=== PATIENT | female | born 1970 | race Caucasian/White ===

== ENCOUNTER 2024-08-11 07:39 | Outpatient (CLI) | payer BC, SELFPAY ==
[2024-08-11 09:28] LABS: Free T4 Free Thyroxine 1.01 ng/dL (0.78-2.19)
[2024-08-12 08:08] LABS: FSH 17.5 mIU/mL; LH 16.5 mIU/mL
[2024-08-15 14:14] LABS: Anti Mullerian Hormone,Female 0.04 ng/mL
[2024-08-17 01:34] LABS: Estradiol, Ultrasensitive 116 pg/mL
--- OUTSIDE RECORDS SUMMARY | 2024-08-18 09:52 | XMS_ITS | Referral Summary ---
Author Organization [facility] Address [address] [place] [address] Care Team Providers Care Multifocal Lens Assembler Name Role Phone Crispin Shen MD Unavailable [phone] Kemi Schmitz Unavailable Ton Hernandez NP Primary Care Provider [phone] Maria C Zacarias MD Unavailable [phone] Allergies No known active allergies Medications turmeric root extract 500 mg capsule Take 500 mg by mouth nightly Active lysine 1,000 mg tablet Take 1,000 mg by mouth nightly Active valACYclovir (VALTREX) 500 mg tablet Take 1 tablet (500 mg total) by mouth 3 (three) times a day 3 Active psyllium, aspartame, SF (METAMUCIL SF) 3.4 gram packet Take 1 packet by mouth drum filler before breakfast Active acetaminophen 500 mg capsuleIndicati ons:Pain Take 2 capsules (1,000 mg total) by mouth every 6 (six) hours 60 tablet 4 Active oxyCODONE (ROXICODONE) 5 mg immediate release tabletIndicatio ns:Pain Take 1 tablet (5 mg total) by mouth every 4 (four) hours as needed for pain 15 tablet 4 Active cyclobenzaprine (FLEXERIL) 5 mg tabletIndicatio ns:Muscle Spasm Take 1 tablet (5 mg total) by mouth 3 (three) times a day as needed for muscle spasms 15 tablet 4 Active Active Problems Problem Noted Date Diagnosed Date Incarcerated ventral hernia 09/20/2023 Assessment & Plan (09/20/2023 1:59 PM DINKER): SEE ABDOMINAL WALL HERNIA for assessment and plan Acute post-operative pain 09/20/2023 Assessment & Plan (09/20/2023 1:58 PM DINKER): -Ordered for tylenol and flexeril scheduled, PRN oxycodone Discharge planning issues 09/20/2023 Assessment & Plan (09/20/2023 1:58 PM DINKER): 2/ OR with Bochicchio; admission overnight for pain control Abdominal wall hernia 08/07/2023 Assessment & Plan (09/21/2023 9:08 AM DINKER): -H/o rectovaginal fistula s/p colostomy and subsequent takedown (Shen 05/18/22) c/b ventral hernia -OR 2/ (Bochicchio) abdominal wall hernia repair with mesh -Regular diet, d/c IVF when tolerating PO -Abdominal binder -Incisions closed with dermabond 2 patient feeling well, pain controlled and passing flatus Follow up will be with Doe Robles with a phone call in 3 weeks from discharge Anal sphincter incontinence 02/22/2023 Encounter for screening colonoscopy 02/22/2023 Anxiety 11/20/2022 Vaginal fistula 03/16/2022 Overview (03/16/2022): Added automatically from request for surgery [id number] Col[facility] in place ([facility]) 03/16/2022 Overview (03/16/2022): Added automatically from request for surgery [id number] Anal fistula 02/08/2021 Overview (02/08/2021): Added automatically from request for surgery [id number] Rectovaginal fistula 08/31/2020 Overview (08/31/2020): Added automatically from request for surgery [id number] Immunizations Name Administration Dates Next Due Pfizer SARS-CoV-2 Monovalent Vaccination (12+ Yrs) PURPLE 11/08/2020,10/18/2020 Social History Tobacco Use Types Packs/Day Years Used Date Smoking Tobacco: Never Smokeless Tobacco: Never Tobacco Cessation:Counseling Given: Not Answered Alcohol Use Standard Drinks/Week Comments Not Currently 0 (1 standard drink = 0.6 oz pur e alcohol) Humiliation, Afraid, Rape, and Kick questionnair e Answer Date Recorded Within the last year, have y ou been afraid of your partner or ex-partner? No 11/24/2020 Within the last year, have y ou been humiliated or emotionally abused in other ways by your partner or ex-partner? No Within the last year, have y ou been kicked, hit, slapped, or otherwise physically hurt by your partner or ex-partner? No 11/24/2020 Within the last year, have y ou been raped or forced to have any kind of sexual activity by your partner or ex-partner? No 11/24/2020 Social Connection and Isolation Panel [NHANES] A nswer Date Recorded In a typical week, how many times do you talk on the phone with family, friends, or neighbors? Three times a week 11/25/19 How often do you get togethe r with friends or relatives? Twice a week 11/24/2020 How often do you attend [facility] or jain services? 1 to 4 times per year 11/24/2020 Do you belong to any clubs o r organizations such as bahai groups, unions, fraternal or athletic groups, or school groups? No 11/24/2020 How often do you attend meet ings of the clubs or organizations you belong to? Never 11/24/2020 Are you , , di vorced, , never , or living with a partner? Living with partner 11/24/2020 AUDIT-C Answer Date Recorded Q1: How often do you have a drink containing alcohol? Never 09/20/2023 Q2: How many drinks containi ng alcohol do you have on a typical day when you are drinking? Patient does not drink Q3: How often do you have si x or more drinks on one occasion? Never 09/20/2023 Hunger Vital Sign Answer Date Recorded Within the past 12 months, y ou worried that your food would run out before you got the money to buy more. Never true 11/25/19 21 Within the past 12 months, t he food you bought just didn't last and you didn't have money to get more. Never true 11/24/2020 PRAPARE - Transportation Answer Date Re corded In the past 12 months, has l ack of transportation kept you from medical appointments or from getting medications? No 02/2021 In the past 12 months, has l ack of transportation kept you from meetings, work, or from getting things needed for daily living? No 11/24/2020 Personal Safety Answer Date Recorded Have you ever been in or are you currently in a harmful physical or emotional relationship or is someone making you feel afraid or unsafe? Denies 09/20/2023 Comments No Sex and Gender Information Value Date Recorded Sex Assigned at Not on file Legal Sex Female 9:36 AM DINKER Gender Identity Female 11/16/2020 2:58 PM CDT Sexual Orientation Straight 11/16/2020 2: 58 PM CDT Last Filed Vital Signs Vital Sign Reading Time Taken Comments Blood Pressure 114/62 09/21/2023 4:26 AM DINKER Pulse 91 09/21/2023 4:26 AM DINKER Temperature 36.4 ??C (97.6 ??F) 09/21/2023 4:26 AM CS T Respiratory Rate 14 09/21/2023 4:26 AM DINKER Oxygen Saturation 99% 09/21/2023 4:26 AM DINKER Inhaled Oxygen Concentration - - Weight 90 kg (198 lb 6.6 oz) 09/11/2023 4:56 PM DINKER Height 177.8 cm (5' 10 ) 09/11/2023 4:56 PM DINKER Body Mass Index 28.47 09/11/2023 4:56 PM DINKER Plan of Treatment Not on file Medical Devices Implanted Type Area Wiring Inspector Device Identifier Shelf Expiration Date Model / Serial / Lot dMetrics Inc [id number] Biodesign Surgisis 9.5x.6cm Set Fistula Plug Without Button Spivey - [id number] Implanted:Qty: 1 on 03/04/2021 by Crispin Shen MD at [facility] N/A: Rectum [employer] 05/30/2022 [id number] / / [id number] Davol Inc/C R Bard Ventralex St Sepra Sorbaflex 2.5in [place] Open Bioresorbable [id number] - [id number] Implanted:Qty: 1 on 09/20/2023 by Bib Ward MD at [facility] Left: Abdomen [employer] Inc/C R Bard [id number] 06/16/2024 [id number] / / [id number] Procedures Procedure Name Priority Date/Time Associated Diagnosis Comments COLONOSCOPY 05/14/2023 8:29 AM CDT from Last 3 Months or Most Recently Relevant to Health Maintenance Results * COLONOSCOPY (05/14/2023 8:29 AM CDT) Anatomical Region Laterality Modality Other Narrative Procedure Note Crispin Shen MD - 05/14/2023 8:29 AM CDT [facility] Patient Name: Belem Coto Procedure Date: 05/14/2023 8:29 AM Date of : 1970 Admit Type: Outpatient Age: 52 Gender: Female Attending MD: Crispin Shen M.D. Room: [facility] ENDOSCOPY ROOM 02 Note Status: Finalized Procedure: Colonoscopy Indications: Screening for colorectal malignant neoplasm Referring MD: Providers: Crispin Shen M.D. Medicines: Propofol per Anesthesia Complications: No immediate complications. Estimated Blood Loss: Estimated blood loss: none. Procedure: Pre-Anesthesia Assessment: - After reviewing the risks and benefits, thepatient was deemed in satisfactory condition to undergo the procedure. - Immediately prior to administration ofmedications, the patient was re-assessed for adequacy to receive sedatives. The benefits, risks and alternatives of theprocedure and sedation were discussed and informed consentwas obtained. All questions were answered. Please referto the signed informed consent document in the medical record. The scope was passed under direct vision.The [id number] Colonoscope was introducedthrough the anus and advanced to the the cecum, identifiedby appendiceal orifice and ileocecal valve. The colonoscopy was performed without difficulty. The patient tolerated the procedure well. The qualityof the bowel preparation was good. The bowelpreparation used was SUPREP. Findings: The perianal and digital rectal examinations were normal. The colon (entire examined portion) appeared normal. Biopsies for histology were taken with a cold forceps from the right colon andleft colon for evaluation of microscopic colitis. Impression: - The entire examined colon is normal. Biopsied. Recommendation: - Await pathology results. - Repeat colonoscopy in 10 years for screening purposes. Electronically signed by Kervin Shen Crispin Shen M.D. 05/14/2023 8:59:38 AM Number of Addenda: 0 Note Initiated On: 05/14/2023 8:29 AM Recognized by the [place] [employer] for promoting quality in endoscopy us Crispin Shen MD ENDOSCOPY PROCEDURES Final Res ult from Last 3 Months or Most Recently Relevant to Health Maintenance Insurance [employer] [place] Advance Directives For more information, please contact: [phone] * Full Code (Latest Code Status on File) Date Activated Date Inactivated Comments 09/20/2023 3:58 PM 09/21/2023 1:09 PM * Full Code Date Activated Date Inactivated Comments 05/14/2023 7:08 AM 05/14/2023 2:49 PM * Full Code Date Activated Date Inactivated Comments 05/18/2022 10:50 AM 05/20/2022 6:45 PM * Full Code Date Activated Date Inactivated Comments 11/24/2020 2:59 PM 11/26/2020 8:36 PM Care Teams Multifocal Lens Assembler Relationship Specialty Start Date End Date Ton Hernandez NP [address] [place] [address] PCP - General Nurse Practitioner 03/08/23 Crispin Shen MD Surgeon Colon and Rectal Surgery 09/09/20 Kemi Schmitz [address] [place] [address] Surgeon Colon and Rectal Surgery 05/16/21 Maria C Zacarias MD [address] [place] [address] Retail Loss Prevention Specialist Gastroenterology 04/02/23
--- OUTSIDE RECORDS SUMMARY | 2024-08-18 09:52 | XMS_ITS | Clinical Summary ---
Author Organization [facility] Address [address] [place] [address] Care Team Providers Care Food Safety Field Specialist Name Role Phone Crispin Shen MD Unavailable [phone] Kemi Schmitz Unavailable Ton Hernandez NP Primary Care Provider [phone] Maria C Zacarias MD Unavailable [phone] Allergies No known active allergies Medications [...] gram packet Take 1 packet by mouth admission nurse coordinator before breakfast Active acetaminophen 500 mg capsuleIndicati [...] 09/20/2023 Assessment & Plan (09/20/2023 1:59 PM NUTRITION TECH): SEE ABDOMINAL WALL HERNIA for assessment and plan Acute post-operative pain 09/20/2023 Assessment & Plan (09/20/2023 1:58 PM NUTRITION TECH): -Ordered for tylenol and flexeril scheduled, PRN oxycodone Discharge planning issues 09/20/2023 Assessment & Plan (09/20/2023 1:58 PM NUTRITION TECH): 2/ OR with Bochicchio; admission overnight for pain control Abdominal wall hernia 08/07/2023 Assessment & Plan (09/21/2023 9:08 AM NUTRITION TECH): -H/o rectovaginal fistula s/p colostomy and subsequent [...] (03/16/2022): Added automatically from request for surgery [id number] Colostomy in place ([facility]) 03/16/2022 Overview (03/16/2022): Added automatically from request for surgery [id number] Anal fistula 02/08/2021 Overview (02/08/2021): Added automatically from request for surgery [id number] Rectovaginal fistula 08/31/2020 Overview (08/31/2020): Added automatically from request for surgery [id number] Immunizations Name Administration Dates Next Due Pfizer SARS-CoV-2 Monovalent Vaccination (12+ Yrs) PURPLE 11/08/2020,10/18/2020 Surgical History Surgery Date Site/Laterality Comments RECTAL EXAMINATION UNDER ANESTHESIA 12/29/2019 RECTAL SURGERY 01/05/2020 Endorectal Advancement Flap RECTAL SURGERY 04/14/2020 Bulbocavernosus Flap Closure of Rectovaginal Fistula COLOSTOMY 04/18/2020 ABDOMINOPLASTY 08/20/2009 - 08/19/2010 APPENDECTOMY 08/20/1977 - 08/19/1978 ENDOMETRIAL ABLATION 08/20/2010 - 08/19/2011 REVISION COLOSTOMY 11/24/2020 Gracillis flap repair of anal vaginal fistula and colostomy revision COLONOSCOPY 08/20/2007 - 08/19/2008 RECTAL EXAMINATION UNDER ANESTHESIA 01/21/2021 Exam under anesthesia, unroofing of abscess cavity, seton placement TREATMENT FISTULA ANAL 03/04/2021 Exam anesthesia, anal fistula plug treatment of fistula. EXAMINATION UNDER ANESTHESIA 08/20/2021 - 08/19/2022 REVISION / TAKEDOWN COLOSTOMY 04/20/2022 - 05/19/2022 colostomy takedown Medical History Medical History Date Comments Anxiety Depression Obesity Rectovaginal fistula Family History Medical History Relation Name Comments Thyroid cancer Mother Anesthesia problems Neg Hx Relation Name Status Comments Mother Social History Tobacco Use Types Packs/Day Years [...] week 11/24/2020 How often do you attend chur ch or spiritism services? 1 to 4 times per year 11/24/2020 Do you belong to any clubs o r organizations such as latter-day groups, unions, fraternal or athletic groups, or [...] on file Legal Sex Female 9:36 AM NUTRITION TECH Gender Identity Female 11/16/2020 2:58 PM CDT Sexual Orientation Straight 11/16/2020 2: 58 PM CDT Obstetrics History Last Filed Vital Signs Vital Sign Reading Time Taken Comments Blood Pressure 114/62 09/21/2023 4:26 AM NUTRITION TECH Pulse 91 09/21/2023 4:26 AM NUTRITION TECH Temperature 36.4 ??C (97.6 ??F) 09/21/2023 4:26 AM CS T Respiratory Rate 14 09/21/2023 4:26 AM NUTRITION TECH Oxygen Saturation 99% 09/21/2023 4:26 AM NUTRITION TECH Inhaled Oxygen Concentration - - Weight 90 kg (198 lb 6.6 oz) 09/11/2023 4:56 PM NUTRITION TECH Height 177.8 cm (5' 10 ) 09/11/2023 4:56 PM NUTRITION TECH Body Mass Index 28.47 09/11/2023 4:56 PM NUTRITION TECH Plan of Treatment Health Maintenance Due Date Last Done Comments Cervical Cancer Screening 1970 Depression Screening 1970 Hepatitis C Screening 1970 Hepatitis B Screening 1988 Regular Well Visit/Exam 18-64 1988 Zoster Vaccine (1 of 2) 2020 Covid-19 Vaccine ( season) 2024 12/01/2021, 06/02/2021, 11/08/2020, Additional history exists Influenza Vaccine (#1) 2024 , 05/16/2021, 05/16/2021, Additional history exists Breast Cancer Screening-Mammogram 05/22/2024 05/22/2023, 05/16/2022 DTaP/Tdap/Td Vaccine (2 - Td or Tdap) 07/22/2029 07/22/2019 Colon Cancer Screening-Colonoscopy 05/14/2033 05/14/2023 Pneumococcal vaccine <65 Aged Out No longer eligible based on patient's age to complete this topic Medical Devices Implanted Type Area Web Operations Administrator Device Identifier Shelf Expiration Date Model / Serial / Lot Interface Foundry Inc [id number] Biodesign Surgisis 9.5x.6cm Set Fistula Plug Without Button [place] - [id number] Implanted:Qty: 1 on 03/04/2021 by Crispin Shen MD at [facility] N/A: Rectum [employer] 05/30/2022 [id number] / / [id number] Davol Inc/C R Bard Ventralex St Sepra Sorbaflex 2.5in [place] Open Bioresorbable [id number] - [id number] Implanted:Qty: 1 on 09/20/2023 by Bib Ward MD at [facility] Left: Abdomen [employer]ol Inc/C R Bard [id number] 06/16/2024 [id number] / / [id number] Procedures Procedure Name Priority Date/Time Associated Diagnosis Comments COLONOSCOPY 05/14/2023 8:29 AM CDT from Last 3 Months or Most Recently Relevant to Health Maintenance Results * COLONOSCOPY (05/14/2023 8:29 AM CDT) Anatomical Region Laterality Modality Other Narrative Procedure Note Crispin Shen MD - 05/14/2023 8:29 AM CDT [facility] Patient Name: Belem Coto Procedure Date: 05/14/2023 8:29 AM Date of : 1970 Admit Type: Outpatient Age: 52 Gender: Female Attending MD: Crispin Shen M.D. Room: [facility] ENDOSCOPY ROOM 02 Note Status: Finalized [...] The scope was passed under direct vision.The [id number] Colonoscope was introducedthrough the anus and advanced [...] On: 05/14/2023 8:29 AM Recognized by the [place] [employer] for promoting quality in endoscopy Crispin Shen MD ENDOSCOPY PROCEDURES Final Res ult from Last 3 Months or Most Recently Relevant to Health Maintenance Insurance [employer] BL CHOICE PRF PPO [place] Advance Directives For more information, please contact: [phone] * Full Code (Latest Code Status on File) Date Activated Date Inactivated Comments 09/20/2023 3:58 PM 09/21/2023 1:09 PM * Full Code Date Activated Date Inactivated Comments 05/14/2023 7:08 AM 05/14/2023 2:49 PM * Full Code Date Activated Date Inactivated Comments 05/18/2022 10:50 AM 05/20/2022 6:45 PM * Full Code Date Activated Date Inactivated Comments 11/24/2020 2:59 PM 11/26/2020 8:36 PM Care Teams Food Safety Field Specialist Relationship Specialty Start Date End Date Ton Hernandez NP [address] [place] [phone] PCP - General Nurse Practitioner 03/08/23 Crispin Shen MD Surgeon Colon and Rectal Surgery 09/09/20 Kemi Schmitz [address] [place] [address] Surgeon Colon and Rectal Surgery 05/16/21 Maria C Zacarias MD [address] [place] [address] Dialer Gastroenterology 04/02/23
--- OUTSIDE RECORDS SUMMARY | 2024-08-18 09:52 | XMS_ITS | Encounter Summary ---
Author Organization [facility] Address [address] [place] [address] Phone Care Team Providers Care Carpenter'S Helper Name Role Phone Crispin Shen MD Unavailable [phone] Kemi Schmitz Unavailable Ton Hernandez NP Primary Care Provider [phone] Maria C Zacarias MD Unavailable [phone] Encounter Details Date Type Department Care Team (Late st Contact Info) Description 11/01/2023 Plan of Care Documentation [facility] Physical Therapy [address] [place] [address] Social History Tobacco Use Types Packs/Day Years Used Date Smoking Tobacco: Never Smokeless Tobacco: Never Alcohol Use Standard Drinks/Week Comments Not Currently [...] 11/24/2020 How often do you attend chur or yazdanism services? 1 to 4 times per year 11/24/2020 Do you belong to any clubs o r organizations such as druze groups, unions, fraternal or athletic groups, or [...] on file Legal Sex Female 9:36 AM FOXPRO DEVELOPER Gender Identity Female 11/16/2020 2:58 PM CDT Sexual Orientation Straight 11/16/2020 2: 58 PM CDT documented as of this encounter Plan of Treatment Not on file documented as of this encounter Visit Diagnoses Not on filedocumented in this encounter Care Teams Carpenter'S Helper Relationship Specialty Start Date End Date Ton Hernandez NP [address] [place] [phone] PCP - General Nurse Practitioner 03/08/23 Crispin Shen MD Surgeon Colon and Rectal Surgery 09/09/20 Kemi Schmitz [address] [place] [address] Surgeon Colon and Rectal Surgery 05/16/21 Maria C Zacarias MD [address] [place] [address] Money Manager Gastroenterology 04/02/23 documented as of this encounter
--- OUTSIDE RECORDS SUMMARY | 2024-08-18 09:52 | XMS_ITS | Encounter Summary ---
Author Organization [facility] Address [address] [place] [address] Phone Care Team Providers Care Electric Range Assembler Name Role Phone Crispin Shen MD Unavailable [phone] Kemi Schmitz Unavailable Ton Hernandez NP Primary Care Provider [phone] Maria C Zacarias MD Unavailable Encounter Details Date Type Department Care Team (Late st Contact Info) Description 10/17/[address] [facility] Department of Surgery [address] [facility] [address] [place] [address] [place] [address] Doe Robles Social History Tobacco Use Types Packs/Day Years [...] often do you attend chur ch or sikhism services? 1 to 4 times per year 11/24/2020 Do you belong to any clubs o r organizations such as rastafari groups, unions, fraternal or athletic groups, or [...] on file Legal Sex Female 9:36 AM ELECTRONIC HEALTH RECORDS SPECIALIST Gender Identity Female 11/16/2020 2:58 PM CDT Sexual Orientation Straight 11/16/2020 2: 58 PM CDT documented as of this encounter Miscellaneous Notes * Telephone Encounter - Doe Robles - 10/17/2023 10:13 AM CST I spoke with Ms. Coto today and completed her post-op follow up phone call. She has no concerns or complaints at this time. She denies pain, swelling, redness or drainage from her surgical site.We discussed the need to continue her lifting restrictions of no more than 10 pounds for a total of6 weeks. I asked her to give the office a call if anything changes or if she has any additional questions. She understands and is agreeable with this plan. TRONIC HEALTH RECORDS SPECIALIST documented in this encounter Plan of Treatment Not on file documented as of this encounter Visit Diagnoses Not on filedocumented in this encounter Care Teams Electric Range Assembler Relationship Specialty Start Date End Date Ton Hernandez NP [address] [place] [phone] PCP - General Nurse Practitioner 03/08/23 Crispin Shen MD Surgeon Colon and Rectal Surgery 09/09/20 Kemi Schmitz [address] [place] [address] Surgeon Colon and Rectal Surgery 05/16/21 Maria C Zacarias MD [address] [place] [address] Test Engineering Technician Gastroenterology 04/02/23 documented as of this encounter
--- OUTSIDE RECORDS SUMMARY | 2024-08-18 09:52 | XMS_ITS | Encounter Summary ---
Author Organization [facility] Address [address] [place] [address] Phone Care Team Providers Care Sales Representative Electric Service Name Role Phone Crispin Shen MD Unavailable [phone] Kemi Schmitz Unavailable Ton Hernandez NP Primary Care Provider [phone] Maria C Zacarias MD Unavailable [phone] Reason for Visit * Reason Comments PT Initial Eval * Consultation (Routine) - Authorized Specialty Diagnoses / Procedures Referred By Contblas t Referred To Contact Physical Therapy Diagnoses Dyssynergic defecation Vivian Thornton MD [address] [place] [address] Phone: tel: fax: Saskia Pemberton DPT [address] [place] [address] Phone: tel: fax: Referral ID Status Reason Start Date Expiration Date Visits Requested Visits Authorized [id number] Authorized Evaluate and Treat 07/24/2023 08/22/2024 24 24 Encounter Details Date Type Department Care Team (Late st Contact Info) Description 10/30/2023 4:00 PM CDT Therapy [facility] Physical Therapy [address] [place] [address] Mary Collier, DPT [address] [facility] [address] [place] [address] Dyssynergic defecation (Primary Dx) Social History Tobacco Use Types Packs/Day Years [...] week 11/24/2020 How often do you attend up health system or quaker services? 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 Dyssynergic defecation 564.02 K59.02 Ambulatory referral order to Physical Therapy - Referring Practitioner: Vivian Thornton MD Date of service: 10/30/2023 Progress note due: 01/29/2024 SUBJECTIVE There were no vitals filed for this visit. Patient CC: Pt reports extensive history of pelvic floor and rectal surgery that have caused her current issuesof UI and FI. She notes feelings of defecating during intercourse and mixed UI that she has been experiencing for multiple years. She notes hernia following removal of ostomy bag. She is currently using the Eclipse for rectal support which has helped with complete stool emptying and decreasing the amount of FI. Her FI is primarily worse when her stool is runny. Previous treatment -No pelvic PT Pertinant Medical History: Relevant surgical history: Anal fistual surgery (01/05/2020) Rectovaginal/anal vaginal fistual s/p repair (2022), complete tear Colostomy s/p take down Abdominoplasty (2009) Appendectomy Colonscopy (2019) Colostomy Endometrial ablation (2010) Episioproctotomy 3 surgeries on colon (2021) Relevant orthopedic history: no report hx of low back or hip pain. Other medical problems: anxiety, recent hernia surgery Obstetric & Gynecologic History: P:3 Vaginal deliveries: 3 Complications with or delivery: stage 4 tear Prolapse Symptoms: Presence of bulging or heaviness in the vagina: No Bladder History: Daytime frequency: Every 2 hrs Nighttime frequency: 1x a night Difficulty emptying: no Feelings of incomplete emptying: no Post-micturition leakage: no Pain with urination: no Urinary incontinence: UUI 2x a day, at least 1x a day Volume of leakage: small Pad usage: 1 pad a day Hx UTIs: Fluid Intake: Water: 90oz of water a day Bladder irritants: Alcohol: no Vaginal Hygiene: Wipes front to back: No, wipes back to front Cleans w/ water only: yes Use of products: No Gastrointestinal History: Frequency of BMs:2-3x a day, Average consistency of BMs on [place] scale: 4 smooth, soft sausage or snake Difficulty emptying: yes, but has improved with use of eclipse Feelings of incomplete emptying: yes, improved w use of eclipse Pain: no Accidental leakage of stool/gas: yes Fiber/diet/supplements: metamucil Sexual History: Sexually active: Yes Symptoms with intercourse: No History of sexual abuse: no Topical estrogen: Other History: 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, 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, 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, 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 Exercise routine: walking, UI w/ jogging Sleep Hygiene: good Tobacco use: no Patient goals: Eliminate UI and FI OBJECTIVE Standing Static posture: Upper t/s kyphosis Flat t/s Flat l/s Anterior pelvic tilt Femoral medial rotation bilaterally Neutral ankles Seated Preferred seated posture: Crosses legs at knees right over left Internal and external pelvic floor muscle assessment performed with informed verbal consent: Yes External Pelvic Floor Muscle Assessment: Abdominal palpation/ examination of scars: hernia scar located in lower left quadrant, scar is about 2.5 inches in length horizontal to trunk. No tenderness to palpation. Some stiffness of scar noted. Diastasis Rectus Abdominus: good tension produced throughout linea alba Below sternum 0 fingerwidths Above umbilicus 0 fingerwidths At umbilicus 0 fingerwidths Below umbilicus 0 fingerwidths Above pubic bone 0 fingerwidths Lower abdominal MMT: able to co-contract pelvic floor and TA External Palpation of PFMs Pubic symphysis palpation: not tender Ischiocavernosis: not tender Bulbocavernosis: not tender Superficial transverse perineal: not tender Levator ani: not tender Performed In Supine: Observation of perineum at rest: aligned w/ ITs Perineal Mobility: Voluntary PFM Contraction: present Voluntary PFM Relaxation: present Involuntary PFM Contraction/ Cough reflex: absent Involuntary PFM relaxation: present, excessive Internal Pelvic Floor Muscle Assessment: Performed in Supine: Superficial layer: Ischiocavernosus: no TTP Bulbocavernosus: no TTP Superficial transverse perineal: no TTP Deep layer: Power: 3/5 Endurance:8 seconds Repetition: TBA Flicks: 5x can fully relax Elevation: present Co-contraction: present Timing: absent Levator ani: no TTP Puborectalis: no TTP Coccygeus: no TTP Obturator Internus: no TTP Prolapse assessment: Moderate laxity of anterior and posterior wall noted. Palpation to posterior wall of pelvic floor demo decreased resting stiffness TREATMENT Therapeutic activity Anatomy education- sources of symptoms, findings of exam Bladder norms Bowel norms Knack Intra-abdominal pressure management Postural correction avoiding medial rotation of femurs Neuromuscular re-education Diaphragmatic breathing Abdominal activation PFM activation PFM relaxation PFM lengthening with inhale Bearing down Knack TREATMENT Therapeutic activity Anatomy education- sources of symptoms, findings of exam Bladder norms Bowel norms Proper voiding positioning and behaviors Bowel routine Fiber intake information Urge suppression Knack Intra-abdominal pressure management Neuromuscular re-education Diaphragmatic breathing Abdominal activation PFM activation PFM relaxation PFM lengthening with inhale Bearing down Knack Therapeutic exercise Knack Urge suppression Fluid consumption PFMT 4x10 power kegels daily ASSESSMENT 10/30/2023 Patient presents to physical therapy with chief complaint(s) of: Feels as thought she will pass stool during intercourse Incomplete defecation Fecal incontinence when stool is not solid, last time was 4 weeks ago SEGUNDO UUI Findings/impairments: tendency to breath hold difficulty coordinating diaphragmatic breathing decreased resting tone of pelvic floor muscles weakness in pelvic floor insufficient pelvic organ support with descent of organs upon bearing down insufficient knack reflex PT Diagnosis: MPCD force generation deficit Patient verbalized understanding education provided today regarding their neuromuscular and musculoskeletal impairments and that these impairments are likely contributing to their symptoms. Patient will benefit from skilled physical therapy including strengthening training, neuromuscular re-education, behavioral modifications, functional activity retraining, manual therapy and modalities as needed to address the above impairments and functional limitations. Patient has a good prognosis. Barriers to meeting therapeutic goals include: PMHx Comorbidities/other factors that may impact progress include: none. PLAN Active Pt to will be able to have intercourse w/ 0/10 feelings of pelvic pressure. Start: 10/30/23 Expected End: 01/24/24 Pt will report 50% improvements in SEGUNDO symptoms for improved quality of life. Start: 10/30/23 Expected End: 12/27/23 Pt will report 95% improvements in UI episodes for improved quality of life. Start: 10/30/23 Expected End: 01/24/24 Pt will report normal stool consistency and bowel movement frequency for 4 weeks for 80-90% improvements in FI episodes. Start: 10/30/23 Expected End: 01/24/24 Pt will demonstrate IND w/ HEP focusing on pelvic floor coordination and strength for improved IAP management. Start: 10/30/23 Expected End: 11/29/23 Pt will be IND for urge suppression techniques for improved UUI symptoms. Start: 10/30/23 Expected End: 11/29/23 Follow up with physical therapy 1x every 2 weeks for 12 weeks, frequency to decrease once patient is increasingly independent with home exercise program. Patient consented to treatment and plan. HEP Knack Urge suppression Fluid consumption PFMT 4x10 power kegels daily Next Visit Glute and core strengthening Time-Based Code Calculator Minutes for Ther Ex/Ther Procedure (61427):: 12 minutes Minutes for Ther Act (82977):: 12 minutes Minutes for Neuro Re-Ed (88480): : 15 minutes Timed Code Treatment Minutes:: 39 minutes Total Treatment Time: 60 Visit Start Time: 0400 Visit Stop Time: 0500 Thank you for this referral, Meenu Collier, PT, DPT, CLT [facility] [place] Physical Therapy documented in this encounter Plan of Treatment Not on file documented as of this encounter Visit Diagnoses Diagnosis Dyssynergic defecation- Primary documented in this encounter Orders Outpatient Referral Count Last Ordered Date Fir st Ordered Date AMB REFERRAL ORDER TO PHYSICAL THERAPY 1 documented in this encounter Care Teams Sales Representative Electric Service Relationship Specialty Start Date End Date Ton Hernandez NP [address] [place] [address] PCP - General Nurse Practitioner 03/08/23 Crispin Shen MD Surgeon Colon and Rectal Surgery 09/09/20 Kemi Schmitz [address] [place] [address] Surgeon Colon and Rectal Surgery 05/16/21 Maria C Zacarias MD [address] [place] [address] Supervisor [employer] Gastroenterology 04/02/23 documented as of this encounter
--- OUTSIDE RECORDS SUMMARY | 2024-08-18 09:53 | XMS_ITS | Encounter Summary ---
Author Organization [facility] Address [address] [place] [address] Phone Care Team Providers Care Photo Specialist Name Role Phone Crispin Shen MD Unavailable [phone] Kemi Schmitz Unavailable Ton Hernandez NP Primary Care Provider [phone] Maria C Zacarias MD Unavailable [phone] Encounter Details Date Type Department Care Team (Late st Contact Info) Description 09/13/2023 Orders Only [facility] Department of Surgery [address] [facility] Advanced Medicine 12th [place] [address] [place] [address] Annabelle Stratton CMA Social History Tobacco Use Types Packs/Day Years [...] often do you attend chur ch or uatsdin services? 1 to 4 times per year 11/24/2020 Do you belong to any clubs o r organizations such as mu-ism groups, unions, fraternal or athletic groups, or school groups? No 11/24/2020 How often do you attend meet ings of the clubs or organizations you belong to? Never 11/24/2020 Are you , , di vorced, , never , or living with a partner? Living with partner 11/24/2020 AUDIT-C Answer Date Recorded Q1: How often do you have a drink containing alcohol? Never 09/11/2023 Q2: How many drinks containi ng alcohol do you have on a typical day when you are drinking? Patient does not drink Q3: How often do you have si x or more drinks on one occasion? 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 Take one additional tablet (8mg) every 6 hours as needed for nausea. 3 tablet 09/13/2023 4 neomycin (MYCIFRADIN) 500 mg tablet Take two tablets (1000 mg) by mouth at 1:00pm, 2:00pm and at 10:00pm the day prior to surgery 6 tablet 09/13/2023 4 polyethylene glycol (MIRALAX) 17 gram packetIndications: Bowel Evacuation,Bowel Prep Begin drinking Miralax (17g) with 8oz of clear liquid at 11am. Continue drinking Miralax (17g) with 8oz of clear liquid every 15 minutes until finished for a total of 238 grams or 14 packets. 14 packet 09/13/2023 4 metroNIDAZOLE (FLAGYL) 500 mg tablet Take two tablets (1000 mg) by mouth at 1:00pm, 2:00pm and at 10:00pm the day prior to surgery 6 tablet 09/13/2023 4 bisacodyl EC (DULCOLAX EC) 5 mg EC tabletIndications: Bowel Evacuation Take two tablets (total of 10mg) of Dulcolax at 10am and 12pm day before surgery 4 tablet 09/13/2023 4 documented in this encounter Plan of Treatment Not on file documented as of this encounter Visit Diagnoses Not on filedocumented in this encounter Care Teams Photo Specialist Relationship Specialty Start Date End Date Ton Hernandez NP [address] [place] [address] PCP - General Nurse Practitioner 03/08/23 Crispin Shen MD Surgeon Colon and Rectal Surgery 09/09/20 Kemi Schmitz [address] [place] [address] Surgeon Colon and Rectal Surgery 05/16/21 Maria C Zacarias MD [address] [place] [address] Deputy Sheriff [employer] Gastroenterology 04/02/23 documented as of this encounter
--- OUTSIDE RECORDS SUMMARY | 2024-08-18 09:53 | XMS_ITS | Encounter Summary ---
Author Organization [facility] Address [address] [place] [address] Care Team Providers Care Dryerman/Woman Name Role Phone Crispin Shen MD Unavailable [phone] Kemi Schmitz Unavailable Ton Hernandez NP Primary Care Provider [phone] Maria C Zacarias MD Unavailable [phone] Reason for Visit * Auth/Cert (Routine) Specialty Diagnoses / Procedures Referred By Contac t Referred To Contact Diagnoses Abdominal wall hernia Abdominal wall hernia [K43.9] Procedures NV RPR AA HERNIA 1ST 3-10 CM REDUCIBLE NV RPR AA HERNIA 1ST < 3 CM REDUCIBLE ####REPAIR VENTRAL HERNIA- abdominal wall hernia open Referral ID Status Reason Start Date Expiration Date Visits Re quested Visits Authorized [id number] 1 1 Encounter Details Date Type Department Care Team (Late st Contact Info) Description 09/20/2023 11:22 AM ATLASSIAN ADMINISTRATOR Anesthesia Event [facility] Operating Room [address] [place] [address] Sánchez Stoddard MD [address] [place] [address] Mitali Dutta NP [address] [facility] [id number] [place], [place] [id number] Anesthesia Record Procedure Summary Procedure Name Responsible Anesthesiologist Anesthesia Start Time Anesthesia Stop Time ####REPAIR VENTRAL HERNIA- abdominal wall hernia open (Left: Abdomen) Sánchez Stoddard MD 09/20/23 1122 09/20/23 1349 Events Date Time Event Comment 09/20/2023 0956 In Preop 1122 An Start 1127 In Room 1127 An Start Data 1134 An Induction The patient was reevaluated immediately before moderate or deep sedation use and before anesthesia induction. 1135 An Intubation 1150 Anesthesia Ready 1156 Proc Start 1156 Incision Start 1310 Proc Fin 1312 An Extubation 1325 an stop data 1326 Out of Room 1348 Handoff to RN I completed my handoff to the receiving nurse during which we: 1. Patient identified 2. Responsible provider identified 3. Pertinent medical history reviewed 4. Procedure type and surgical course discussed 5. Intraoperative anesthetic management and any significant issues discussed 6. Expectations and concerns for postop period discussed 7. Questions solicited from receiving nurse 8. Patient disposition at the time of handoff: No value filed. 1349 An Stop Meds Name Total midazolam PF 2 mg lidocaine (cardiac) syringe 2 % 80 mg propofol 180 mg fentaNYL 100 mcg HYDROmorphone 2 mg/mL 1 mg rocuronium 80 mg phenylephrine 100 mcg/mL 1.75 mg ondansetron PF (ZOFRAN) 2 mg/mL injectio n 4 mg ketamine 10 mg/mL 20 mg ceFAZolin (ANCEF) 2,000 mg/20 mL in ster ile water (premix) 2,000 mg 2,000 mg famotidine 20 mg sugammadex 200 mg haloperidol injection 2 mg Lactated Ringer's (LR) infusion 1,200 mL * Agents Name O2% N2O O2 N2O Air Sevoflurane Inspired Sevoflurane * Blood No blood administrations on file. Lines, Drains, and Airways Type Details Placement Removal Peripheral IV Placement Date: 09/20/23; Placement Time: 1015; Catheter Size: 20 G; Orientation: Posterior, Right; Location: Hand 09/20/23 1015 by Sanjuana Tovar RN ETT Placement Date: 09/20/23; Placement Time: 1200 (created via procedure documentation); Mask Ventilation: 1; Technique: Flexible bronchoscopy; Cuffed: Yes; Insertion Attempts: 1; Placement Verification: Auscultation, Capnometry; Airway Comment: Elective FOB intubation ; Removal Date: 09/20/23; Removal Time: 131109/20/23 1200 by Andreia Stark CRNA 09/20/23 1312 by Andreia Stark CRNA RETIRED Surgical Site 09/20/23; 1239; Le ft; Abdomen; 07/22/24 (Retired LDA, Removed/Completed by Waggl with LDA Utility); 1213 (Retired LDA, Removed/Completed by Waggl with LDA Utility) 09/20/23 1239 by Toño Shields RN 07/22/24 1213 by Discharge Provider, Automatic documented in this encounter Social History Tobacco Use Types Packs/Day Years [...] or neighbors? Three times a week 11/25/19 21 How often do you get togethe r with friends or relatives? Twice a week 11/24/2020 How often do you attend chur or anabaptist services? 1 to 4 times per year [...] on file Legal Sex Female 9:36 AM ATLASSIAN ADMINISTRATOR Gender Identity Female 11/16/2020 2:58 PM CDT Sexual Orientation Straight 11/16/2020 2: 58 PM CDT documented as of this encounter OR Notes * Anesthesia Postprocedure Evaluation - Yolanda Gallardo MD PhD - 09/20/2023 2:07 PM CST Patient: Belem Coto Procedure Summary Date: 09/20/23 Room / Location: [facility] OR POD 2 ROOM 209 / [facility] OR POD 2 Anesthesia Start: 1122 Anesthesia Stop: 1349 Procedure: ####REPAIR VENTRAL HERNIA- abdominal wall hernia open (Left: Abdomen) Diagnosis: Abdominal wall hernia (Abdominal wall hernia [K43.9]) Surgeons: Bib Ward MD Responsible Provider: Sánchez Stoddard MD Anesthesia Type: general ASA Status: Not recorded Anesthesia Type: general Last vitals BP 97/54 Pulse 84 Temp 36.4 ??C (97.5 ??F) (Temporal) Resp 11 SpO2 94% Anesthesia Post Evaluation Patient location during evaluation: PACU Patient participation: complete - patient participated Level of consciousness: fully awake Pain score: 4 Pain management: satisfactory to patient Airway patency: adequate Evidence of recall: no Cardiovascular status: acceptable Respiratory status: acceptable and room air Hydration status: acceptable Pt is: normothermic Nausea/Vomiting status: resolved and tolerable Comments: Transfer to the floor. No notable events documented. SSIAN ADMINISTRATOR SSIAN ADMINISTRATOR * Anesthesia Procedure Notes - Andreia Stark - 09/20/2023 12:00 PM ATLASSIAN ADMINISTRATOR Associated Order(s): Airway Airway Patient location: OR Urgency: elective Indications for airway management: anesthesia Difficult airway: no Staff: Placed by: Other staff: Andreia Stark Emergent airway documentation: Risks and benefits discussed: yes Consent obtained: yes Consent given by: patient Airway prep: Preoxygenated: yes Patient position: sniffing Mask difficulty assessment: 1 - vent by mask Spontaneous ventilation during airway: absent Sedation level during airway: GA Final airway details: Final airway type: endotracheal airway Cuffed: yes Technique used for successful ETT placement: flexible bronchoscopy Cuff inflated with: air Placement verified by: auscultation and CO2 detection Airway secured with: silk tape Number of attempts: 1 Planned trial extubation: yes Additional comments: Elective FOB intubation SSIAN ADMINISTRATOR * Anesthesia Preprocedure Evaluation - Sánchez Stoddard MD - 09/11/2023 8:56 AM CST Images from the original note were not included. [facility] Preoperative [facility] and Planning Preoperative Evaluation Record Evaluation type/location: CPAP [facility] Planned procedure site: [facility] (Pods 2/3/5/[facility]) Date: 09/11/23 Anesthesia Evaluation Belem Coto is a 52 y.o. female Procedure(s): ####REPAIR VENTRAL HERNIA- abdominal wall hernia open Pre-Op Diagnosis Codes: * Abdominal wall hernia [K43.9] HISTORY HPI Belem Coto is a 52 yo male being evaluated prior to undergoing a ventral hernia repair with open abdominal wall repair. Pt has hx of multiple abdominal surgeries including ostomy (d/t rectovaginal fistula) with colostomy and revision and colostomy takedown now c/o left-sided abdominal pain in the area of her colostomy takedown. Past Medical History Information obtained from: patient and chart. Neurological + Psychiatric history - anxiety and depression Pertinent negatives: seizures; neuromuscular disease; CVA/stroke; TIA; CEA; ICA stenosis; dementia/mild cognitive impairment and carotid artery stent Cardiovascular Pertinent negatives: hypertension ; CAD ; [place] ; CABG ; valvular heart disease; valve replacement; atrial fibrillation; arrhythmia; pacemaker/ICD; PVD; DVT/PE; negative for CHF; drug-eluting stent(s); bare metal stent(s) and coronary angioplasty Respiratory Pertinent negatives: COPD; asthma; sleep apnea (CANDE); pulmonary hypertension; no O2 use outside thehospital; non-smoker and no tracheostomy Hepatic / Heme Pertinent negatives: liver disease; history of anemia; history of thrombocytopenia and history of Kimmy positive Gastrointestinal Pertinent negatives: GERD and hiatal hernia Comments: +s/p ostomy with colostomy revision and colostomy takedown Renal / Pertinent negatives: renal disease; dialysis and nephrolithiasis Musculoskeletal/Pain Pertinent negatives: chronic pain; chronic opioid use and previous treatment for opioid use disorder Endocrine / Other Pertinent negatives: diabetes mellitus; thyroid disease; obesity (BMI >30); cancer history; rheumatological disease and transplanted organ Functional Capacity Functional capacity: 4-6 METs Comments: Pt walks/treadmill regularly without CP or LIZARRAGA Day of Surgery assessments + Possibility of assessed (s/p ablation, DOS hcg ordered) Review of Systems + dysphagia (ED visit 05/2023 s/p choking on pills -> acute pill-induced laryngitis) Pertinent negatives: productive cough; wheezing; SOB; recent cold/flu; fever; chest pain; palpitations; orthopnea; pedal edema; PND; heavy menses; Sickle Cell disease/trait; previous transfusion; transfusion reaction; melena/hematochezia; easy bruising; bleeding problems; syncope; dizziness; muscleweakness; chronic pain; numbness/tingling; hard of hearing; vision loss; heartburn; nausea; diarrhea; dentures/partials; chipped/loose teeth; abdominal pain; diaphoresis and no unexpected weight change Comments: Denies UTI symptoms. PAT Summary and Plans Cardiac risk classification of planned procedure: intermediate cardiac risk. Preoperative assessment status: complete pending laboratory results and lab tests ordered. Additional comments: Belem Coto is a 52 y.o. female who is being evaluated prior to undergoing an intermediate cardiac risk surgery. Revised Cardiac Risk Index factors are (none) for a totalRCRI of 0 out of 6. Functional capacity is 4-6 METs. Obstructive sleep apnea (CANDE) screening status is STOP-Bang=1 suggesting low risk for CANDE Blood bank needs for day of procedure: Type and Screen only Pending labs/tests include: CBC BMP T&S DOS hcg Preoperative evaluation performed by Niyah Bobby NP on 09/11/23 at 4:26 PM. . Follow up note Ordered labs as noted in documentation above reviewed and are without significant findings from a preoperative perspective. Surgeon's office reviews laboratory results independently. CPAP process complete. 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 Past Medical History: Diagnosis Date Anxiety Depression Obesity Rectovaginal fistula Past Surgical History: Procedure Laterality Date ABDOMINOPLASTY 2010 APPENDECTOMY 1978 COLONOSCOPY 2007 COLOSTOMY 04/18/2020 ENDOMETRIAL ABLATION 2010 EXAMINATION UNDER ANESTHESIA 2021 RECTAL EXAMINATION UNDER ANESTHESIA 12/29/2019 RECTAL EXAMINATION UNDER ANESTHESIA 01/21/2021 Exam under anesthesia, unroofing of abscess cavity, seton placement RECTAL SURGERY 01/05/2020 Endorectal Advancement Flap RECTAL SURGERY 04/14/2020 Bulbocavernosus Flap Closure of Rectovaginal Fistula REVISION / TAKEDOWN COLOSTOMY 04/2022 colostomy takedown REVISION COLOSTOMY 11/24/2020 Gracillis flap repair of anal vaginal fistula and colostomy revision TREATMENT FISTULA ANAL 03/04/2021 Exam anesthesia, anal fistula plug treatment of fistula. OB History No obstetric history on file. No Known Allergies Taking? Last Dose Start Date End Date Provider ascorbic acid (VITAMIN C) 1,000 mg tablet -- -- -- Tyra Crawford MD biotin 1,000 mcg tablet,chewable -- -- -- Tyra Crawford MD cholecalciferol (VITAMIN D-3) 2000 unit capsule -- -- -- Tyra Crawford MD LORazepam (ATIVAN) 0.5 mg tablet -- 06/18/23 -- Tyra Crawford MD lysine 1,000 mg tablet -- -- -- Tyra Crawford MD multivitamin capsule -- -- -- Tyra Crawford MD omega 1-uxg-oew-fish oil (Fish OiL) 1,000 mg (120 mg-180 mg) capsule -- -- -- Tyra Crawford MD omega-3 fatty acids-fish oil 300-1,000 mg capsule -- -- -- Tyra Crawford MD psyllium, aspartame, SF (METAMUCIL SF) 3.4 gram packet -- -- -- Tyra Crawford MD turmeric root extract 500 mg capsule -- -- -- Tyra Crawford MD valACYclovir (VALTREX) 500 mg tablet -- 10/02/22 -- Tyra Crawford MD zinc 50 mg tablet -- -- -- Tyra Crawford MD Flag for Review Taking? Last Dose Start Date End Date Provider atomoxetine (STRATTERA) 25 mg capsule -- 04/26/23 -- Tyra Crawford MD famotidine (PEPCID) 20 mg tablet () -- 06/16/23 06/23/23 Luana Sage MD Take 1 tablet (20 mg total) by mouth daily for 7 days linaCLOtide (LINZESS) 145 mcg capsule -- 06/29/23 09/27/23 Vivian Thornton MD Take 1 capsule (145 mcg total) by mouth daily loperamide (IMODIUM A-D) 2 mg tablet -- -- -- Tyra Crawford MD metroNIDAZOLE (FLAGYL) 250 mg tablet -- 05/25/23 -- Tyra Crawford MD ofloxacin (OCUFLOX) 0.3 % ophthalmic solution -- 02/23/23 -- Tyra Crawford MD prednisoLONE acetate (PRED FORTE) 1 % ophthalmic suspension -- 03/29/23 -- Tyra Crawford MD Prolensa 0.07 % drops -- 02/23/23 -- Tyra Crawford MD Current Outpatient Medications: ascorbic acid (VITAMIN C) 1,000 mg tablet atomoxetine (STRATTERA) 25 mg capsule biotin 1,000 mcg tablet,chewable cholecalciferol (VITAMIN D-3) 2000 unit capsule famotidine (PEPCID) 20 mg tablet linaCLOtide (LINZESS) 145 mcg capsule loperamide (IMODIUM A-D) 2 mg tablet LORazepam (ATIVAN) 0.5 mg tablet lysine 1,000 mg tablet metroNIDAZOLE (FLAGYL) 250 mg tablet multivitamin capsule ofloxacin (OCUFLOX) 0.3 % ophthalmic solution omega 4-swj-pbr-fish oil (Fish OiL) 1,000 mg (120 mg-180 mg) capsule omega-3 fatty acids-fish oil 300-1,000 mg capsule prednisoLONE acetate (PRED FORTE) 1 % ophthalmic suspension Prolensa 0.07 % drops psyllium, aspartame, SF (METAMUCIL SF) 3.4 gram packet turmeric root extract 500 mg capsule valACYclovir (VALTREX) 500 mg tablet zinc 50 mg tablet No current facility-administered medications for this visit. Facility-Administered Medications Ordered in Other Visits: diatrizoate meglumine-diatrizoate sodium (GASTROGRAFIN/-GASTROVIEW) 66-10 % solution 60 mL, 60 mL, oral, Once in imaging Social History Tobacco Use Smoking Status Never Smokeless Tobacco Never Alcohol Use: Not At Risk (05/14/2023) AUDIT-C Frequency of Alcohol Consumption: Never Average Number of Drinks: Patient does not drink Frequency of Binge Drinking: Never Substance and Sexual Activity Drug Use Never Family History Problem Relation Age of Onset Thyroid cancer Mother Anesthesia problems Neg Hx PAT Physical Exam Airway Exam: Mallampati: II Cervical ROM: FROM TM distance: normal Upper lip bite test class: 1 Cardiovascular Exam: Rate: regular Rhythm: regular Negative for Murmur Negative for peripheral edema Pulmonary Exam: LCTA, bilat EENT Exam: trachea midline Dental Exam: Appears intact Skin Exam: Skin is warm and dry. Abdominal exam: Abdomen is soft. Bowel sounds are present. Current state: Patient's current state is cooperative and interactive. There were no vitals filed for this visit. Relevant diagnostics: ECG(s): N/A Echocardiogram(s): N/A Stress test(s): N/A Cardiac catheterization(s): N/A PFT(s): N/A Vascular studies: N/A Other: CT Body OSH 08/07/2023 IMPRESSION: Small fat-containing hernia at the site of prior colostomy takedown in the left lower quadrant. No evidence of bowel obstruction. The findings, conclusions and recommendations within this report do not replace the initial findings, conclusions and recommendations made at the facility where the study was performed based upon the imaging and clinical condition at that time. Comparison with the prior report and clinical history is necessary. The provided images may or may not represent the council source data set and thus may contain changes that may lower the accuracy of this second-opinion interpretation. CXR 06/15/23 IMPRESSION: No acute cardiopulmonary abnormality. PT: No results found for requested labs within last 30 days. INR: No results found for requested labs within last 30 days. APTT: No results found for requested labs within last 30 days. Hgb A1C: No results found for requested labs within last 30 days. CBC RBC: No results found for requested labs within last 30 days. RDW: No results found for requested labs within last 30 days. MCHC: No results found for requested labs within last 30 days. MCH: No results found for requested labs within last 30 days. MCV: No results found for requested labs within last 30 days. Hct: No results found for requested labs within last 30 days. Hgb: No results found for requested labs within last 30 days. WBC: No results found for requested labs within last 30 days. MPV: No results found for requested labs within last 30 days. Platelets: No results found for requested labs within last 30 days. RDW CV: No results found for requested labs within last 30 days. RDW Sd: No results found for requested labs within last 30 days. BMP Glucose: No results found for requested labs within last 30 days. Calcium: No results found for requested labs within last 30 days. Sodium: No results found for requested labs within last 30 days. Potassium: No results found for requested labs within last 30 days. CO2: No results found for requested labs within last 30 days. Chloride: No results found for requested labs within last 30 days. BUN: No results found for requested labs within last 30 days. Creatinine: No results found for requested labs within last 30 days. DOS Physical Exam Medical history, medications, and allergies reviewed. Attestation: This PAT evaluation Airway Exam: Mallampati: II Cervical ROM: FROM TM distance: normal Cardiovascular Exam: Rate: regular Rhythm: regular Pulmonary Exam: LCTA, bilat Dental Exam: Appears intact Current state: Patient's current state is cooperative and interactive. Anesthesia Plan ASA 2 My patient is approved for the Anesthesia Controlled Medication protocol when under care of a DIRECTOR OF INTELLIGENCE Planned anesthesia: General Team communication plan: oral ET tube Induction: Induction: intravenous and RSI. Postoperative Plan: Postoperative administration opioids intended. No postoperative mechanical ventilation intended. Patient's planned disposition post procedure is Floor. Planned trial extubation. Informed Consent: Discussed plan with DIRECTOR OF INTELLIGENCE. Anesthesia plan and risks discussed with patient. Consent and Attending signature: I and/or my designee have discussed the anesthesia plan, benefits, possible alternatives, parental presence at time of induction (if indicated), and clinically relevant risks that may include dental injury, unintentional awareness, and/or other complications. The patient and/or parent/legal guardian understand, and agree to proceed. All questions answered. SSIAN ADMINISTRATOR SSIAN ADMINISTRATOR SSIAN ADMINISTRATOR documented in this encounter Plan of Treatment Not on file documented as of this encounter Procedures Procedure Name Priority Date/Time Associated Diagnosis Comments NV AN PROCEDURE PLACEHOLDER Routine 09/20/2023 12:00 PM ATLASSIAN ADMINISTRATOR NV AN ELECTIVE ENDOTRACHEAL AIRWAY Routine 09/20/2023 12:00 PM ATLASSIAN ADMINISTRATOR documented in this encounter Results * NV AN ELECTIVE ENDOTRACHEAL AIRWAY, NV AN PROCEDURE PLACEHOLDER (09/20/2023 12:00 PM ATLASSIAN ADMINISTRATOR) Andreia Thorpe - 09/20/2023 12:00 PM ATLASSIAN ADMINISTRATOR Andreia Stark ? 09/20/2023 12:00 PM Airway Patient location: OR Urgency: elective Indications for airway management: anesthesia Difficult airway: no Staff: Placed by: Other staff: Andreia Stark Emergent airway documentation: Risks and benefits discussed: yes Consent obtained: yes Consent given by: patient Airway prep: Preoxygenated: yes Patient position: sniffing Mask difficulty assessment: 1 - vent by mask Spontaneous ventilation during airway: absent Sedation level during airway: GA Final airway details: Final airway type: endotracheal airway Cuffed: yes Technique used for successful ETT placement: flexible bronchoscopy Cuff inflated with: air Placement verified by: auscultation and CO2 detection Airway secured with: silk tape Number of attempts: 1 Planned trial extubation: yes Additional comments: Elective FOB intubation Sánchez Stoddard MD ANESTHESIA ORDERABLES F inal Result documented in this encounter Visit Diagnoses Not on filedocumented in this encounter Administered Medications Inactive Administered Medications - up to 3 most recent administrations Medication Order MAR Action Action Date Dose Rate Site ceFAZolin (ANCEF) 2,000 mg/20 mL in sterile water (premix) 2,000 mg 2,000 mg, intravenous, at 400 mL/hr, Administer over 3 Minutes, Once, On Ana 09/20/23 at 1045, For 1 dose, Pre-Op, Administer within 60 minutes of incision., Indications: Prophylaxis, SurgicalIndications:Prophylaxis , Surgical Given 09/20/2023 11:52 AM ATLASSIAN ADMINISTRATOR 2,000 mg famotidine (PEPCID) injection intravenous, Administer over 2 Minutes, As needed, Starting on Ana 09/20/23 at 1240, Anesthesia Intra-op Given 09/20/2023 12:40 PM ATLASSIAN ADMINISTRATOR 20 mg fentaNYL (SUBLIMAZE) preservative free injection intravenous, As needed, Starting on Ana 09/20/23 at 1158, Anesthesia Intra-op Given 09/20/2023 11:58 AM ATLASSIAN ADMINISTRATOR 50 mcg Given 09/20/2023 11:34 AM ATLASSIAN ADMINISTRATOR 50 mcg haloperidol (HALDOL) injection intravenous, As needed, Starting on Ana 09/20/23 at 1324, Anesthesia Intra-op Given 09/20/2023 1:24 PM ATLASSIAN ADMINISTRATOR 1 mg Given 09/20/2023 1:15 PM ATLASSIAN ADMINISTRATOR 1 mg HYDROmorphone (DILAUDID) injection intravenous, Administer over 2 Minutes, As needed, Starting on Ana 09/20/23 at 1259, Anesthesia Intra-op Given 09/20/2023 12:59 PM ATLASSIAN ADMINISTRATOR 1 mg ketamine (KETALAR) injection intravenous, Administer over 2 Minutes, As needed, Starting on Ana 09/20/23 at 1149, Anesthesia Intra-op Given 09/20/2023 11:34 AM ATLASSIAN ADMINISTRATOR 20 mg Lactated Ringer's (LR) infusion 30 mL/hr, intravenous, Continuous, Starting on Ana 09/20/23 at 1045, Pre-Op Restarted 09/20/2023 11:27 AM ATLASSIAN ADMINISTRATOR Rate/Dose Verify 09/20/2023 11:22 AM ATLASSIAN ADMINISTRATOR 30 mL/ hr New Bag 09/20/2023 10:16 AM ATLASSIAN ADMINISTRATOR 30 mL/hr 30 mL/hr lidocaine (cardiac) (XYLOCAINE) preservative free injection intravenous, As needed, Starting on Ana 09/20/23 at 1149, Anesthesia Intra-op, Indications: Ventricular ArrhythmiasIndications:Ventri cular Arrhythmias Given 09/20/2023 11:34 AM ATLASSIAN ADMINISTRATOR 80 mg midazolam (VERSED) 2 mg/2 mL preservative free injection intravenous, Administer over 2 Minutes, As needed, Starting on Ana 09/20/23 at 1123, Anesthesia Intra-op Given 09/20/2023 11:23 AM ATLASSIAN ADMINISTRATOR 2 mg ondansetron (ZOFRAN) injection intravenous, Administer over 2 Minutes, As needed, Starting on Ana 09/20/23 at 1240, Anesthesia Intra-op Given 09/20/2023 12:40 PM ATLASSIAN ADMINISTRATOR 4 mg phenylephrine (TOMAS-SYNEPHRINE) 1 mg/10 mL (100 mcg/mL) in sodium chloride 0.9% (premix) intravenous, As needed, Starting on Ana 09/20/23 at 1209, Anesthesia Intra-op New Bag 09/20/2023 12:13 PM ATLASSIAN ADMINISTRATOR 0.3 mcg/kg/min 16.2 mL/hr Given 09/20/2023 12:09 PM ATLASSIAN ADMINISTRATOR 50 mcg propofoL (DIPRIVAN) 10 mg/mL IV intravenous, As needed, Starting on Ana 09/20/23 at 1149, Anesthesia Intra-op New Bag 09/20/2023 11:34 AM ATLASSIAN ADMINISTRATOR 180 mg rocuronium (ZEMURON) injection intravenous, As needed, Starting on Ana 09/20/23 at 1149, Anesthesia Intra-op Given 09/20/2023 11:34 AM ATLASSIAN ADMINISTRATOR 80 mg sugammadex (BRIDION) 100 mg/mL intravenous solution intravenous, As needed, Starting on Ana 09/20/23 at 1250, Anesthesia Intra-op Given 09/20/2023 12:50 PM ATLASSIAN ADMINISTRATOR 200 mg documented in this encounter Care Teams Dryerman/Woman Relationship Specialty Start Date End Date Ton Hernandez NP [address] [place] [address] PCP - General Nurse Practitioner 03/08/23 Crispin Shen MD Surgeon Colon and Rectal Surgery 09/09/20 Kemi Schmitz [address] [place] [address] Surgeon Colon and Rectal Surgery 05/16/21 Maria C Zacarias MD [address] [place] [address] Environmental Sustainability Manager Gastroenterology 04/02/23 documented as of this encounter
--- OUTSIDE RECORDS SUMMARY | 2024-08-18 09:53 | XMS_ITS | Encounter Summary ---
Author Organization [facility] Address [address] [place] [address] Phone Care Team Providers Care Executive Sales Manager Name Role Phone Crispin Shen MD Unavailable [phone] Kemi Schmitz Unavailable Ton Hernandez NP Primary Care Provider [phone] Maria C Zacarias MD Unavailable [phone] Reason for Visit * Reason Onset Date Comments Surgery Confirmation 09/19/2023 Encounter Details Date Type Department Care Team (Late st Contact Info) Description 09/19/2023 Telephone [facility] Department of Surgery [address] [place] [address] [place] [address] Annabelle Stratton CMA Surgery Confirmation Social History Tobacco Use Types Packs/Day Years [...] often do you attend chur ch or adventism services? 1 to 4 times per year 11/24/2020 Do you belong to any clubs o r organizations such as anabaptism groups, unions, fraternal or athletic groups, or [...] on file Legal Sex Female 9:36 AM UNIT TENDER Gender Identity Female 11/16/2020 2:58 PM CDT Sexual Orientation Straight 11/16/2020 2: 58 PM CDT documented as of this encounter Miscellaneous Notes * Telephone Encounter - Annabelle Stratton CMA - 09/19/2023 3:39 PM UNIT TENDER Confirmed: yes Location: yes not far from the hospital Arrival Time: 6: 30 Instructions have been read over: Consent in media: yes Bowel Prep: yes, started this morning Soap/ bedding instructions: yes I am regan Questions: how long is this surgery Sincerely, Annabelle MARCUS, REPRODUCTION SPECIALIST Polymerization Oven Operator to Dr. Ward [phone] office phone TENDER documented in this encounter Plan of Treatment Not on file documented as of this encounter Visit Diagnoses Not on filedocumented in this encounter Care Teams Executive Sales Manager Relationship Specialty Start Date End Date Ton Hernandez NP [address] [place] [phone] PCP - General Nurse Practitioner 03/08/23 Crispin Shen MD Surgeon Colon and Rectal Surgery 09/09/20 Kemi Schmitz [address] [place] [address] Surgeon Colon and Rectal Surgery 05/16/21 Maria C Zacarias MD [address] [place] [address] Purchasing Contracting Clerk Gastroenterology 04/02/23 documented as of this encounter
--- OUTSIDE RECORDS SUMMARY | 2024-08-18 09:53 | XMS_ITS | Encounter Summary ---
Author Organization [facility] Address [address] [facility] [address] [place] [address] Phone Care Team Providers Care Insurance Policy Clerk Name Role Phone Crispin Shen MD Unavailable [phone] Kemi Schimtz Unavailable Ton Hernandez NP Primary Care Provider [phone] Maria C Zacarias MD Unavailable [phone] Reason for Visit * Consultation (Routine) - Closed Specialty Diagnoses / Procedures Referred By Contblas t Referred To Contact Diagnoses Ventral hernia without obstruction or gangrene Ton Hernandez NP [address] [place] [address] Phone: tel: fax: [facility] (All Locations) Referral ID Status Reason Start Date Expiration Date V isits Requested Visits Authorized [id number] Closed Specialty Services Required 07/05/2023 08/03/2024 1 1 Encounter Details Date Type Department Care Team (Late st Contact Info) Description 08/07/2023 8:30 AM AXLE POLISHER Office Visit [facility] Department of Surgery [address] [place] [address] [place] [address] Bib Ward MD [address] [facility] [phone] [place] [address] Ventral hernia without obstruction or gangrene (Primary Dx) Social History Tobacco Use Types [...] often do you attend chur ch or amish services? 1 to 4 times per year [...] you have a drink containing alcohol? Never 05/14/2023 Q2: How many drinks containi ng alcohol do you have on a typical day when you are drinking? Patient does not drink Q3: How often do you have si x or more drinks on one occasion? Never 05/14/2023 Hunger Vital Sign Answer Date Recorded Within [...] on file Legal Sex Female 9:36 AM AXLE POLISHER Gender Identity Female 11/16/2020 2:58 PM CDT Sexual Orientation Straight 11/16/2020 2: 58 PM CDT documented as of this encounter Last Filed Vital Signs Vital Sign Reading Time Taken Comments Blood Pressure 109/75 08/07/2023 8:55 AM AXLE POLISHER Pulse 82 08/07/2023 8:55 AM AXLE POLISHER Temperature 36.4 ??C (97.5 ??F) 08/07/2023 8:55 AM CS T Respiratory Rate 16 08/07/2023 8:55 AM AXLE POLISHER Oxygen Saturation 100% 08/07/2023 8:55 AM AXLE POLISHER Inhaled Oxygen Concentration - - Weight 93 kg (205 lb) 08/07/2023 8:55 AM AXLE POLISHER Height 177.8 cm (5' 10 ) 08/07/2023 8:55 AM AXLE POLISHER Body Mass Index 29.41 08/07/2023 8:55 AM AXLE POLISHER documented in this encounter Progress Notes * Bib Ward MD - 08/07/2023 8:30 AM CST [facility] Acute Critical Care Surgery New Patient Consultation / Evaluation REASON FOR CONSULTATION: Ventral hernia without obstruction or gangrene REQUESTING PROVIDER: Ton Hernandez HISTORY OF PRESENT ILLNESS: The patient is a 52 y.o. female presenting with history of numerous abdominal surgeries including an ostomy with colostomy revision and colostomy takedown now presents with left-sided abdominal pain in the area of her colostomy takedown. He was seen by her local physician who got a CT scan which demonstrates a new left-sided abdominal wall hernia. PAST MEDICAL HISTORY: She has a past medical history of Anxiety, Depression, Obesity, and Rectovaginal fistula. She has no past medical history of Acute respiratory failure requiring reintubation (CMS/HCC) (HCC), Awareness under anesthesia, Cardiac complication, Delayed emergence from general anesthesia, Hard to intubate, Hematoma, Malignant hyperthermia, Motion sickness, Pneumothorax, PONV (postoperative nausea and vomiting), Postoperative delirium, Pseudocholinesterase deficiency, Sleep apnea, or Spinal headache. PAST SURGICAL HISTORY: She has a past surgical history that includes Rectal examination under anesthesia (12/29/2019); Rectal surgery (01/05/2020); Rectal surgery (04/14/2020); Colostomy (04/18/2020); Abdominoplasty (2009); Appendectomy (1977); Endometrial ablation (2010); Revision Colostomy (11/24/2020); Colonoscopy (2007); Rectal examination under anesthesia (01/21/2021); Treatment fistula anal (03/04/2021); Examination under anesthesia (2021); and Revision / takedown colostomy (04/2022). MEDICATIONS: She has a current medication list which includes the following prescription(s): ascorbic acid, atomoxetine, biotin, cholecalciferol, famotidine, linaclotide, loperamide, lorazepam, lysine, metronidazole, multivitamin, ofloxacin, omega 4-nyx-vcj-fish oil, omega-3 fatty acids-fish oil, prednisolone acetate, prolensa, psyllium (aspartame) sf, turmeric root extract, valacyclovir, and zinc, and the following Facility-Administered Medications: diatrizoate meglumine-diatrizoate sodium. ALLERGIES: She has No Known Allergies. FAMILY HISTORY: Her family history includes Thyroid cancer in her mother. SOCIAL HISTORY: She reports that she has never smoked. She has never used smokeless tobacco. She reports that she does not use drugs. Patient denies consuming alcoholic drinks. REVIEW OF SYSTEMS: GENERAL: Denies fevers, chills or malaise. SKIN: Denies rashes, sores. HEAD: Denies headache, migraine. EYES: Denies vision change, glaucoma. RESPIRATORY: Denies cough, sputum, hemoptysis, TB, pneumonia. CARDIAC: Denies chest pain, palpitations, dyspnea, orthopnea, heart trouble. GI: Denies nausea, dyspepsia, vomiting, vomiting of blood, change in bowel habits, rectal bleeding or black/tarry stools, diarrhea, constipation. URINARY: Denies polyuria, dysuria, nocturia, hesitancy, incontinence, infections, reduced force or stream. VASCULAR: Denies intermittent, claudication, leg cramps, thrombophlebitis. MS: Denies gout, systemic arthritis. NEUROLOGIC: Denies fainting, blackouts, seizures, paralysis, tremors, numbness, gait change. HEMATOLOGIC: Denies easy bruising or bleeding, past transfusion reactions. ENDOCRINE: Denies hypothyroidism or diabetes. PSYCH: Denies depression/anxiety. PHYSICAL EXAMINATION: Ht: 177.8 cm (5' 10 ) Wt: 93 kg (205 lb) BMI: Body mass index is 29.41 kg/m??. BP 109/75 (BP Location: Left arm, Patient Position: Sitting) Pulse 82 Temp 36.4 ??C (97.5 ??F) Resp 16 Ht 177.8 cm (5' 10 ) Wt 93 kg (205 lb) SpO2 100% BMI 29.41 kg/m?? GENERAL: Well-appearing individual in no acute distress. NEURO: Alert and oriented x3, mood and affect appropriate. HEENT: Pupils equal. EOMs grossly normal. NECK: Supple. Trachea midline. PULMONARY: Breathing comfortably on room air. No audible wheezes. CARDIOVSCULAR: Regular rate and rhythm. Palpable pedal pulses. No venous stasis changes. SKIN: Smooth and dry. No rashes. ABDOMEN: Soft, non-tender, with numerous incisions and left-sided abdominal wall bulge MUSCULOSKELETAL: Grossly normal range of motion. No limp. Personally reviewed her CT scan which demonstrates a left-sided abdominal wall hernia. ASSESSMENT AND PLAN: The patient is a 52 y.o. female with the following problems. Long discussion was held with regarding surgical options. Risks and benefits were explained to the patient she provided written informed consent for open repair of her left-sided abdominal wall hernia. She will undergo a bowel prep prior to surgery. She was see anesthesia for medical optimization and clearance. Bbi Ward MD manager cash Acute Critical Care Surgery [phone] POLISHER documented in this encounter Plan of Treatment Not on file documented as of this encounter Visit Diagnoses Diagnosis Ventral hernia without obstruction or gangrene- Primary Unspecified ventral hernia without mention of obstruction or gangrene documented in this encounter Orders Outpatient Referral Count Last Ordered Date Fir st Ordered Date AMB REFERRAL TO [facility] 1 08/07/2023 documented in this encounter Care Teams Insurance Policy Clerk Relationship Specialty Start Date End Date Ton Hernandez NP [address] [place] [address] PCP - General Nurse Practitioner 03/08/23 Crispin Shen MD Surgeon Colon and Rectal Surgery 09/09/20 Kemi Schmitz [address] [place] [address] Surgeon Colon and Rectal Surgery 05/16/21 Maria C Zacarias MD [address] [place] [address] Hot Blast Worker Gastroenterology 04/02/23 documented as of this encounter
--- OUTSIDE RECORDS SUMMARY | 2024-08-18 09:53 | XMS_ITS | Encounter Summary ---
Author Organization [facility] Healthcare Address [address] [place] [address] Care Team Providers Care Director On Air Name Role Phone Crispin Shen MD Unavailable [phone] Kemi Schmitz Unavailable Ton Hernandez NP Primary Care Provider [phone] Maria C Zacarias MD Unavailable [phone] Reason for Visit * Auth/Cert (Routine) Specialty Diagnoses / Procedures Referred By Contac t Referred To Contact Diagnoses Abdominal wall hernia Abdominal wall hernia [K43.9] Procedures [place] RPR AA HERNIA 1ST 3-10 CM REDUCIBLE [place] RPR AA HERNIA 1ST < 3 CM REDUCIBLE ####REPAIR VENTRAL HERNIA- abdominal wall hernia open Referral ID Status Reason Start Date Expiration Date Visits Re quested Visits Authorized [id number] 1 1 Encounter Details Date Type Department Care Team (Latest Contact Info) Description 09/20/2023 6:19 AM EMERGENCY MANAGEMENT CONSULTANT - 09/21/2023 9:00 AM EMERGENCY MANAGEMENT CONSULTANT Hospital Encounter [facility] [address] [place] [address] Bib Ward MD [address] [phone] [place] [address] Discharge Disposition: Discharge to home or self care Social History Tobacco Use Types Packs/Day Years [...] often do you attend chur ch or latter-day services? 1 to 4 times per year 11/24/2020 Do you belong to any clubs o r organizations such as mormon groups, unions, fraternal or athletic groups, or [...] on file Legal Sex Female 9:36 AM EMERGENCY MANAGEMENT CONSULTANT Gender Identity Female 11/16/2020 2:58 PM CDT Sexual Orientation Straight 11/16/2020 2: 58 PM CDT documented as of this encounter Last Filed Vital Signs Vital Sign Reading Time Taken Comments Blood Pressure 114/62 09/21/2023 4:26 AM EMERGENCY MANAGEMENT CONSULTANT Pulse 91 09/21/2023 4:26 AM EMERGENCY MANAGEMENT CONSULTANT Temperature 36.4 ??C (97.6 ??F) 09/21/2023 4:26 AM CS T Respiratory Rate 14 09/21/2023 4:26 AM EMERGENCY MANAGEMENT CONSULTANT Oxygen Saturation 99% 09/21/2023 4:26 AM EMERGENCY MANAGEMENT CONSULTANT Inhaled Oxygen Concentration - - Weight - - Height - - Body Mass Index - - documented in this encounter Discharge Summaries * Selene Tinoco NP - 09/21/2023 8:15 AM CST Images from the original note were not included. 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 Hospital Course: Discharge planning issues Assessment & Plan 09/20 OR with Sylvia; admission overnight for pain control Acute post-operative pain Assessment & Plan -Ordered for tylenol and flexeril scheduled, PRN oxycodone Incarcerated ventral hernia Assessment & Plan SEE ABDOMINAL WALL HERNIA for assessment and plan * Abdominal wall hernia Assessment & Plan -H/o rectovaginal fistula s/p colostomy and subsequent takedown (Shen 05/18/22) c/b ventral hernia -OR 09/20 ([facility]) abdominal wall hernia repair with mesh -Regular diet, d/c IVF when tolerating PO -Abdominal binder -Incisions closed with dermabond Active Issues Requiring Follow Up: Outpatient follow up with Doe Robles with Dr Ward Appointment: follow up with Doe Robles in 3 weeks via phone call Operative Procedures Performed: ####REPAIR VENTRAL HERNIA- abdominal wall hernia open (Left: Abdomen) Colon Biopsy Discharge Physical Exam: Discharge Condition: fair Pulse: 91 Resp: 14 BP: 114/62 Temp: 36.4 ??C (97.6 ??F) Weight: Constitutional: alert and oriented x3 and no acute distress HEENT: Pupils equal, EOMs grossly normal, mucous membranes moist Respiratory: equal chest rise bilaterally and respirations unlabored Abdomen: soft, non-distended, transverse derma flores, abdominal binder Skin: warm, well perfused and extremities non-edematous Wound: transverse abdominal incision, closed with derma flores Diet: Diet Instructions Adult Discharge Diet Diet Type: Return to previous diet Discharge Disposition: Discharge to home or self care Code Status at Discharge: Full Code Activity: Activity Instructions Discharge Activity: Lifting restrictions -Do NOT lift greater than 10 pounds for 4 weeks. Discharge Activity: Walking -You may walk as tolerated. Wound Care: Able to bathe self, groom and Carries out hygiene routine on a regular basis keep wound clean and dry none Discharge Medications: Your medication list START taking these medications acetaminophen 500 mg capsule 1,000 mg, oral, Every 6 hours scheduled cyclobenzaprine 5 mg tablet 5 mg, oral, 3 times daily PRN Commonly known as: FLEXERIL oxyCODONE 5 mg immediate release tablet 5 mg, oral, Every 4 hours PRN Commonly known as: ROXICODONE CONTINUE taking these medications lysine 1,000 mg tablet 1,000 mg, oral, Nightly psyllium (aspartame) SF 3.4 gram packet 1 packet, oral, Daily (early AM) Commonly known as: METAMUCIL SF turmeric root extract 500 mg capsule 500 mg, oral, Nightly valACYclovir 500 mg tablet 500 mg, oral, 3 times daily Commonly known as: VALTREX STOP taking these medications bisacodyl EC 5 mg EC tablet Commonly known as: DULCOLAX EC metroNIDAZOLE 500 mg tablet Commonly known as: FLAGYL neomycin 500 mg tablet Commonly known as: MYCIFRADIN ondansetron 8 mg tablet Commonly known as: ZOFRAN polyethylene glycol 17 gram packet Commonly known as: MIRALAX Discharge Instructions: Other Instructions Call provider for: increased temperature -Temperature greater than 101 degrees F Call provider for: nausea, vomiting, diarrhea -If you have persistent nausea, vomiting or diarrhea that does not stop Call provider for: redness, tenderness, or signs of infection (pain, swelling, redness, odor or green/yellow discharge around incision site) Call provider for: severe uncontrolled pain Call provider for: any other concerns or questions Call provider if: you feel dizzy, very tired or like you may faint Care Instructions: Abdominal binder -Wear the abdominal binder. May remove to shower. May remove to wash the binder. Care Instructions: Incentive Spirometer - Continue to use your incentive spirometer Care Instructions: No tub baths -No tub baths, whirlpools or swimming until your provider says it's ok. Care Instructions: Shower -You may shower allowing warm soapy water to flow over your incision, pat dry Discharge Wound Type: Skin Glue Special glue has been placed on your incision. It will flake off over 1 week. Do not pick, scratch or rub. This may cause it to come off before your incision has healed. Special Instructions You will have a phone call follow up with Dr Sylvia Georges's nurse, in 3 weeks. If you have questions prior to your follow up phone call you may call the office at [phone] For Follow Up Call [place] [facility] at [phone] Follow up Future Appointments Date Time Provider Department Center 10/30/2023 4:00 PM Mary Collier, DPT [id number] 1210 PT 11/13/2023 4:00 PM Mary Collier, DPT [id number] 1210 PT 11/27/2023 4:00 PM Mary Collier, DPT [id number] 1210 PT All care plans discussed with rounding/operative attending: Bib Springer MD I spent 30 minutes completing this hospital discharge. Selene Tinoco NP 09/21/23 CC: Ton Hernandez NP Cosigned by Bib Ward MD at 09/21/2023 11:29 AM EMERGENCY MANAGEMENT CONSULTANT GENCY MANAGEMENT CONSULTANT GENCY MANAGEMENT CONSULTANT documented in this encounter Medications at Time of Discharge acetaminophen 500 mg capsuleIndicatio ns:Pain Take 2 capsules (1,000 mg total) by mouth every 6 (six) hours 60 tablet 09/21/2023 cyclobenzaprine (FLEXERIL) 5 mg tabletIndication s:Muscle Spasm Take 1 tablet (5 mg total) by mouth 3 (three) times a day as needed for muscle spasms 15 tablet 09/21/2023 lysine 1,000 mg tablet Take 1,000 mg by mouth nightly oxyCODONE (ROXICODONE) 5 mg immediate release tabletIndication s:Pain Take 1 tablet (5 mg total) by mouth every 4 (four) hours as needed for pain 15 tablet 09/21/2023 psyllium, aspartame, SF (METAMUCIL SF) 3.4 gram packet Take 1 packet by mouth manual lathe operator before breakfast turmeric root extract 500 mg capsule Take 500 mg by mouth nightly valACYclovir (VALTREX) 500 mg tablet Take 1 tablet (500 mg total) by mouth 3 (three) times a day 10/02/2022 documented as of this encounter Ordered Prescriptions Prescription Sig Dispense Quantity Refills Last Filled Start Date End Date cyclobenzaprine (FLEXERIL) 5 mg tabletIndications: Muscle Spasm Take 1 tablet (5 mg total) by mouth 3 (three) times a day as needed for muscle spasms 15 tablet 09/21/2023 oxyCODONE (ROXICODONE) 5 mg immediate release tabletIndications: Pain Take 1 tablet (5 mg total) by mouth every 4 (four) hours as needed for pain 15 tablet 09/21/2023 acetaminophen 500 mg capsuleIndications :Pain Take 2 capsules (1,000 mg total) by mouth every 6 (six) hours 60 tablet 09/21/2023 documented in this encounter Discharge Disposition Disposition Code Departure Means Destination Comment s Discharge to home or self care documented in this encounter Progress Notes * Yolanda Torrez RN - 09/21/2023 8:20 AM CST 09/21/23 0818 Discharge Summary Discharge Disposition Private residence Equipment/Provider Needs No Home Needs Identified Discharge Additional Assistance Does the patient need discharge transport arranged? No Post Discharge Care Provider Post Discharge Care Plan Next level of care provider has access to complete EMR Per medical team, patient is medically stable for discharge at this time. Follow up appointment hasbeen scheduled. Transportation will be provided by patient's daughter. Patient and/or family are agreeable with the plan. If any further discharge needs arise, please contact the covering case operator. GENCY MANAGEMENT CONSULTANT * Sherry Navarrete MD - 09/20/2023 6:15 PM CST ACCS Post Op Check Note Belem Coto 1970 [id number] Pt returns from the OR 09/20/2023 s/p ####REPAIR VENTRAL HERNIA- abdominal wall hernia open (L) by Bib Ward MD for Pre-op Diagnosis * Abdominal wall hernia [K43.9] Pain:controlled Nausea: No Urine output adequate: Yes Diet: Dietary Orders (From admission, onward) Start Ordered 09/20/23 1559 Adult Diet Regular, Clear Liquid Diet effective now Comments: CLD, advance as tolerated Question Answer Comment ([facility]) Diet type Regular ([facility]) Diet type Clear Liquid 09/20/23 1558 Physical Exam: Vitals: 09/20/23 1805 BP: 101/55 Pulse: 86 Resp: Temp: 36.7 ??C (98 ??F) SpO2: 98% Constitutional: alert and oriented x3 and no acute distress Incision/Dressing is clean, dry, intact Assessment and Plan Doing well. Continue current management. GENCY MANAGEMENT CONSULTANT documented in this encounter H&P Notes * Bib Ward MD - 09/20/2023 10:33 AM CST No change in H&P GENCY MANAGEMENT CONSULTANT Source Note - Mitali Dutta NP - 09/11/2023 8:56 AM EMERGENCY MANAGEMENT CONSULTANT Images from the original note were not included. 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 Rectovaginal fistula 08/31/2020 Past Medical History: Diagnosis Date Anxiety Depression Obesity Rectovaginal fistula Past Surgical History: Procedure Laterality Date ABDOMINOPLASTY 2009 APPENDECTOMY 1977 COLONOSCOPY 2007 COLOSTOMY 04/18/2020 ENDOMETRIAL ABLATION 2010 [...] -- -- -- Tyra Crawford MD omega 0-efq-wfi-fish oil (Fish OiL) 1,000 mg (120 mg-180 [...] ofloxacin (OCUFLOX) 0.3 % ophthalmic solution omega 5-wzw-pfx-fish oil (Fish OiL) 1,000 mg (120 mg-180 [...] images may or may not represent the wainwright source data set and thus may contain [...] for requested labs within last 30 days. GENCY MANAGEMENT CONSULTANT GENCY MANAGEMENT CONSULTANT documented in this encounter Miscellaneous Notes * Initial Assessments - Yolanda Torrez RN - 09/21/2023 8:15 AM EMERGENCY MANAGEMENT CONSULTANT CARLOS Initial Assessment Interview Note Information Obtained From: Patient (09/21/23 0814) Admission Source: from home Impression: 52 yr. Old admitted for Ventral hernia repair . Plan Includes: Discharge to home when medically stable Primary Source of Transportation: Does the patient need discharge transport arranged?: No (09/21/23813) No Daughter will be picking up patient Health Insurance Coverage: [employer] [place] [facility] Prescription Coverage: yes Pharmacy: [facility] [place], [place] - [address] [facility] [address] [facility] [address] Primary Care Provider: Ton Hernandez NP verified Prior to Admission: Functional Status: Independent with ADLs Primary Caregiver: Self Support System: Spouse/Significant Other Home Care Services: No Outpatient Services: No Durable Medical Equipment: None Living Arrangements: Spouse/significant other Type of Residence: Private residence Steps in home?: Yes, Outside of home Number of steps outside: 2 steps Medication management: Independent (09/21/23813) Potential discharge needs include: advertising campaign manager will follow for post acute discharge needs such as therapy, nursing, medical equipment or agency referrals as indicated by the care team. Dialysis: no Behavioral Health Services: Behavioral Health Services: No (09/21/23813) Patient expects to be Discharged to: Private residence, (09/21/23813) Additional Information: Confirmed address and phone to facesheet. Patient independent in ADLS. Family for assist post - hospitalization/DC needs. Patient's Identified Problem/Goal Problem: Ensure acute medical needs are met and that patient has a safe discharge plan. Goal: Secure a discharge plan that patient/family are agreeable with and ensure patient has continuum of care. Case management will follow for discharge planning and send referrals as needed. Goals include: To assure continuity of care, To maximize coping skills, To assure patient is in a safe environment and To assure access to community resources. Plan includes: 1. Collaboration with patient, MD, direct care nurse, Broomcorn Scraper, and other members of the health care team to assure needed interventions completed. 2. Return patient to optimal level of self-care post discharge. 3. Sourcing Consultant will follow for Discharge Planning - interventions as needed 4. Anticipated level of care at discharge 5. Planned Discharge Disposition Based on a comprehensive family assessment, assistance with instrumental activities of daily livingafter discharge will be provided by patient. Through the course of our work I determined that the patient possesses the skill and ability to provide and monitor the care of the patient when he or she returns home. Patient has the capacity to provide/monitor/arrange for the care of the patient. Finally, we determined that patient has the knowledge of available resources and that combining them with their existing resources will suffice to sustain and care for the patient when he or she returns home. The treatment team is aware of this information. All are in agreement with the aftercare plan. Yolanda Torrez RN GENCY MANAGEMENT CONSULTANT * Plan of Care - Rm Stubbs RN - 09/21/2023 7:45 AM CST Problem: Health Behavior: Goal: Understanding of discharge needs will improve Outcome: Progressing Problem: Lack of Knowledge: Goal: Ability to develop a pain control plan will improve Outcome: Progressing Patient had a calm night, mildly painful, wanting to dc in the morning GENCY MANAGEMENT CONSULTANT * Plan of Care - Kera Triplett RN - 09/20/2023 5:39 PM EMERGENCY MANAGEMENT CONSULTANT Goals: Summary: GENCY MANAGEMENT CONSULTANT * Assessment & Plan Note - Tenisha Myers PA - 09/20/2023 1:59 PM EMERGENCY MANAGEMENT CONSULTANT Associated Problem(s): Incarcerated ventral hernia SEE ABDOMINAL WALL HERNIA for assessment and plan GENCY MANAGEMENT CONSULTANT * Assessment & Plan Note - Tenisha Myers PA - 09/20/2023 1:59 PM EMERGENCY MANAGEMENT CONSULTANT Associated Problem(s): Abdominal wall hernia -H/o rectovaginal fistula s/p colostomy and subsequent takedown (Shen 05/18/22) c/b ventral hernia -OR 2/ ([facility]) abdominal wall hernia repair with mesh -Regular diet, d/c IVF when tolerating PO -Abdominal binder -Incisions closed with dermabond 09/21 patient feeling well, pain controlled and passing flatus Follow up will be with Doe Robles with a phone call in 3 weeks from discharge GENCY MANAGEMENT CONSULTANT GENCY MANAGEMENT CONSULTANT GENCY MANAGEMENT CONSULTANT * Assessment & Plan Note - Tenisha Myers PA - 09/20/2023 1:58 PM EMERGENCY MANAGEMENT CONSULTANT Associated Problem(s): Acute post-operative pain -Ordered for tylenol and flexeril scheduled, PRN oxycodone GENCY MANAGEMENT CONSULTANT * Assessment & Plan Note - Tenisha Myers PA - 09/20/2023 1:58 PM EMERGENCY MANAGEMENT CONSULTANT Associated Problem(s): Discharge planning issues 09/20 OR with Sylvia; admission overnight for pain control GENCY MANAGEMENT CONSULTANT * Brief Op Note - Bib Ward MD - 09/20/2023 11:56 AM EMERGENCY MANAGEMENT CONSULTANT Operative Progress Note Surgical Team: Surgeon(s) and Role: * Bib Ward MD - Primary * Holly Benitez MD - Resident - Assisting Anesthesiologist: Sánchez Stoddard MD HELPER STEEL FABRICATION: Bree Noel CRNA; Kt Arredondo CRNA Student Nurse Molded Frames Assembler: Andreia [employer] Company Manager: Lolita Grant RN; Toño Shields, CHRIS Scrub Relief: Chelita Norman ST Scrub: Ila Maxwell ST DATE OF SURGERY : 09/20/2023 Preoperative Diagnosis: Pre-op Diagnosis * Abdominal wall hernia [K43.9] Postoperative Diagnosis: Post-op Diagnosis * Abdominal wall hernia [K43.9] Procedure(s): Procedure(s) (LRB): ####REPAIR VENTRAL HERNIA- abdominal wall hernia open (Left) Excisuon of scar Operative Findings: Fascia defect, closed with mesh Estimated Blood Loss: 5 mL Intraoperative Fluids: 1500 mls Specimens: No specimen collected in procedure Implants: Implant Name Type Inv. Item Serial No. Product Development Technician Lot No. [id number] No. Used Action [employer]C R BARD Ventralex St Sepra Sorbaflex 2.5in Spring Open Bioresorbable [id number] - [id number] [employer] R BARD Ventralex St Sepra Sorbaflex 2.5in Spring Open Bioresorbable [id number] [employer] Bard [id number] Left 1 Implanted Blood/Blood Products Transfused: 0 mls Complications: None Condition on Discharge from the operating room was stable Holly Benitez MD Date: 09/20/2023 Time: 1:22 PM TEACHING ATTESTATION : I was present and directly participated in the entire procedure (including opening and closing). GENCY MANAGEMENT CONSULTANT GENCY MANAGEMENT CONSULTANT * Op Note - Bib Ward MD - 09/20/2023 12:00 AM CST PREOPERATIVE DIAGNOSIS Left-sided incarcerated abdominal wall hernia. POSTOPERATIVE DIAGNOSIS Left-sided incarcerated abdominal wall hernia. EBL 10 cc PROCEDURE Open repair of incarcerated left-sided abdominal wall hernia with excision of 5 x 8 cm scar excision, resection of a denuded abdominal wall measuring 5 x 1 cm and repair of abdominal wall hernia witha synthetic coated mesh. ATTENDING SURGEON Bib Ward MD. HISTORY Patient is a middle-aged female who presents with a history of colostomy for colovesical fistula who had colostomy takedown who now presents with an incarcerated left-sided abdominal wall hernia 5 cm. Risks and benefits were provided. She provided written informed consent. The patient was prepped and draped in normal sterile fashion. Preoperative antibiotics were given within 30 minutes of the incision. SCDs were placed for DVT prophylaxis and a timeout was performed as per [facility] Hospital policies. An elliptical incision was carried to excise the previous scar 5 x 8 cmto healthy viable tissue. After this was completed Bovie cauterization was used as we divided and entered the hernia. Lysis of adhesions was performed and there was an area of incarcerated omentum and was resected and the hernia was reduced. At this point, we undermined and created a 5 cm circumferentially elevating the skin and subcutaneous tissue from the underlying fascia. At this point, we were able to clearly visualize the hernia defect. We excised approximately 5 x 1 cm of denuded abdominal wall tissue to healthy viable fascia and muscle. At this point, the hernia measured approximately8 x 5 cm. At this point, a piece of synthetic coated mesh was then sewn in parachute fashion with underlay with #1 PDS suture in a simple interrupted fashion. After this was completed, the hernia defect itself was closed with #1 PDS suture in a simple interrupted vertical mattress fashion. After this was completed, local anesthesia was injected circumferentially. The Adolfo's fascia was reapproximated with 2-0 Vicryl suture and the skin was reapproximated with skin ashwin. Please note, I was present and performed the entire procedure. Job ID/Internal Job ID: [id number] GENCY MANAGEMENT CONSULTANT documented in this encounter Plan of Treatment Not on file documented as of this encounter Procedures Procedure Name Priority Date/Time Associated Diagnosis Comments REPAIR VENTRAL HERNIA 09/20/2023 11:27 AM EMERGENCY MANAGEMENT CONSULTANT Abdominal wall hernia Case Notes 09/11 PER ASSONET VIA PHONE CALL @1267 MAKE LINEUP SC, JS, LL, GB- RC09/11 PER ASSONET VIA PHONE CALL MAKE CTC 100 MIN- [id number]: Per Lovejoy via phone call, patient class changed to Outpatient in Bed versus Surgery Admit. SR POCT HCG, URINE Routine 09/20/2023 10:05 AM EMERGENCY MANAGEMENT CONSULTANT documented in this encounter Results * POCT hCG, urine (09/20/2023 10:05 AM EMERGENCY MANAGEMENT CONSULTANT) HCG, ur, POC Negative Negative Lot Number [id number] QC Backgroud Clear Acceptable QC Control Line Acceptable Urine 09/20/2023 10:0 5 AM EMERGENCY MANAGEMENT CONSULTANT Niyah Bobby NP POINT OF CARE TEST OR DERABLES Final Result documented in this encounter Visit Diagnoses Diagnosis Abdominal wall hernia- Primary Unspecified ventral hernia without mention of obstruction or gangrene Incarcerated ventral hernia Unspecified ventral hernia with obstruction Acute post-operative pain Discharge planning issues documented in this encounter Admitting Diagnoses Diagnosis Abdominal wall hernia Unspecified ventral hernia without mention of obstruction or gangrene Incarcerated ventral hernia Unspecified ventral hernia with obstruction documented in this encounter Administered Medications Inactive Administered Medications - up to 3 most recent administrations Medication Order MAR Action Action Date Dose Rate Site acetaminophen (TYLENOL) tablet 1,000 mg 1,000 mg, oral, Every 6 hours scheduled, First dose on Ana 09/20/23 at 2000, Indications: PainIndications:Pain Given 09/21/2023 4:21 AM EMERGENCY MANAGEMENT CONSULTANT 1,000 mg Given 09/20/2023 8:42 PM EMERGENCY MANAGEMENT CONSULTANT 1,000 mg acetaminophen (TYLENOL) tablet 1,000 mg 1,000 mg, oral, Once, On Ana 09/20/23 at 1445, For 1 dose, Phase I Given 09/20/2023 2:14 PM EMERGENCY MANAGEMENT CONSULTANT 1,000 mg dextrose 5% and sodium chloride 0.45% with potassium chloride 20 mEq/L infusion (premix) 50 mL/hr, intravenous, Continuous, Starting on Ana 09/20/23 at 1400, Phase I, Discontinue when tolerating regular diet New Bag 09/20/2023 5:56 PM EMERGENCY MANAGEMENT CONSULTANT 50 mL/hr 50 mL/hr enoxaparin (LOVENOX) syringe 40 mg 40 mg, subcutaneous, Daily (for enoxaparin), First dose on Ana 09/20/23 at 2100, Indications: Deep Vein Thrombosis PreventionIndications:Deep Vein Thrombosis Prevention Given 09/20/2023 8:44 PM EMERGENCY MANAGEMENT CONSULTANT 40 mg Right Lower Abdomen HYDROmorphone (DILAUDID) injection 0.2 mg 0.2 mg, intravenous, Administer over 2 Minutes, Every 10 min PRN, 1st line for pain, Starting on Ana 09/20/23 at 1328, Phase I, Switch to 2nd line analgesic order if pain is uncontrolled or increasing after 2 doses. Notify Anesthesiologist if total PACU dose reaches 2 mg and pain score 5/10 or more., Indications: PainIndications:Pain Given 09/20/2023 2:34 PM EMERGENCY MANAGEMENT CONSULTANT 0.2 mg Given 09/20/2023 2:17 PM EMERGENCY MANAGEMENT CONSULTANT 0.2 mg Given 09/20/2023 2:06 PM EMERGENCY MANAGEMENT CONSULTANT 0.2 mg ketorolac (TORADOL) 30 mg/mL (1 mL) injection 30 mg 30 mg, intravenous, Once, On Ana 09/20/23 at 1515, For 1 dose, Phase I, For Adult IV push, administer over 15 seconds, Indications: Postoperative Acute PainIndications:Postoperative Acute Pain Given 09/20/2023 2:43 PM EMERGENCY MANAGEMENT CONSULTANT 30 mg Lactated Ringer's (LR) infusion 50 mL/hr, intravenous, Continuous, Starting on Ana 09/20/23 at 1400, Phase I New Bag 09/20/2023 2:47 PM EMERGENCY MANAGEMENT CONSULTANT 50 mL/hr 50 mL/h r Lactated Ringer's (LR) infusion 30 mL/hr, intravenous, Continuous, Starting on Ana 09/20/23 at 1045, Pre-Op Restarted 09/20/2023 11:27 AM EMERGENCY MANAGEMENT CONSULTANT Rate/Dose Verify 09/20/2023 11:22 AM EMERGENCY MANAGEMENT CONSULTANT 30 mL/ hr New Bag 09/20/2023 10:16 AM EMERGENCY MANAGEMENT CONSULTANT 30 mL/hr 30 mL/hr oxyCODONE (ROXICODONE) tablet 5 mg 5 mg, oral, Every 4 hours PRN, 1st line for pain, Starting on Ana 09/20/23 at 1558, May administer 1 hour after 1st line agent for uncontrolled or increasing pain. , Indications: PainIndications:Pain Given 09/21/2023 6:33 AM EMERGENCY MANAGEMENT CONSULTANT 5 mg Given 09/20/2023 8:43 PM EMERGENCY MANAGEMENT CONSULTANT 5 mg prochlorperazine (COMPAZINE) injection 5 mg 5 mg, intravenous, Administer over 2 Minutes, Once, On Ana 09/20/23 at 1445, For 1 dose, Phase I Given 09/20/2023 2:15 PM EMERGENCY MANAGEMENT CONSULTANT 5 mg sodium chloride 0.9% flush 0.5-20 mL 0.5-20 mL, intra-catheter, Every 8 hours scheduled, First dose on Ana 09/20/23 at 1630, Flush volume based on line type and size. Given 09/21/2023 6:34 AM EMERGENCY MANAGEMENT CONSULTANT 10 mL Given 09/20/2023 8:47 PM EMERGENCY MANAGEMENT CONSULTANT 10 mL valACYclovir (VALTREX) tablet 500 mg 500 mg, oral, 2 times daily, First dose (after last modification) on Ana 09/20/23 at 2100, Indications: Chronic Suppression, Skin/Soft Tissue InfectionIndications:Chronic Suppression,Skin/Soft Tissue Infection documented in this encounter Discontinued Medications Medication Sig Discontinue Reason Start Date End Da te bisacodyl EC (DULCOLAX EC) 5 mg EC tabletIndications:Taylor l Evacuation Take two tablets (total of 10mg) of Dulcolax at 10am and 12pm day before surgery Stop Taking at Discharge 09/13/2023 09/21/2023 metroNIDAZOLE (FLAGYL) 500 mg tablet Take two tablets (1000 mg) by mouth at 1:00pm, 2:00pm and at 10:00pm the day prior to surgery Stop Taking at Discharge 09/13/2023 09/21/2023 polyethylene glycol (MIRALAX) 17 gram packetIndications:Taylor l Evacuation,Bowel Prep Begin drinking Miralax (17g) with 8oz of clear liquid at 11am. Continue drinking Miralax (17g) with 8oz of clear liquid every 15 minutes until finished for a total of 238 grams or 14 packets. Stop Taking at Discharge 09/13/2023 09/21/2023 neomycin (MYCIFRADIN) 500 mg tablet Take two tablets (1000 mg) by mouth at 1:00pm, 2:00pm and at 10:00pm the day prior to surgery Stop Taking at Discharge 09/13/2023 09/21/2023 ondansetron (ZOFRAN) 8 mg tabletIndications:prev ention of pre-operative bowel preparation 11am- take one tablet (8mg) of Zofran for nausea. Take one additional tablet (8mg) every 6 hours as needed for nausea. Stop Taking at Discharge 09/13/2023 09/21/2023 documented as of this encounter Active and Recently Administered Medications Times are shown in EMERGENCY MANAGEMENT CONSULTANT. Scheduled Medication Order 09/19/2023 09/20/2023 09/21/2023 acetaminophen (TYLENOL) tablet 1,000 mg 1,000 mg, oral, Every 6 hours scheduled, First dose on Ana 09/20/23 at 2000, Indications: Pain 204 (Given - Provider: Rm Stubbs RN) 0421 (Given - Provider: Rm Stubbs RN)0800 (Due) acetaminophen (TYLENOL) tablet 1,000 mg (COMPLETED) 1,000 mg, oral, Once, On Ana 09/20/23 at 1445, For 1 dose, Phase I 1414 (Given - Provider: Chelita Angel RN) ceFAZolin (ANCEF) 2,000 mg/20 mL in sterile water (premix) 2,000 mg (COMPLETED) 2,000 mg, intravenous, at 400 mL/hr, Administer over 3 Minutes, Once, On Ana 09/20/23 at 1045, For 1 dose, Pre-Op, Administer within 60 minutes of incision., Indications: Prophylaxis, Surgical 115 (Given - Provider: Andreia Stark) enoxaparin (LOVENOX) syringe 40 mg 40 mg, subcutaneous, Daily (for enoxaparin), First dose on Ana 09/20/23 at 2100, Indications: Deep Vein Thrombosis Prevention 2043 (Given - Provider: Rm Stubbs RN) ketorolac (TORADOL) 30 mg/mL (1 mL) injection 30 mg (COMPLETED) 30 mg, intravenous, Once, On Ana 09/20/23 at 1515, For 1 dose, Phase I, For Adult IV push, administer over 15 seconds, Indications: Postoperative Acute Pain 1443 (Given - Provider: Deepa Strickland RN) prochlorperazine (COMPAZINE) injection 5 mg (COMPLETED) 5 mg, intravenous, Administer over 2 Minutes, Once, On Ana 09/20/23 at 1445, For 1 dose, Phase I 1415 (Given - Provider: Chelita Angel RN) sodium chloride 0.9% flush 0.5-20 mL 0.5-20 mL, intra-catheter, Every 8 hours scheduled, First dose on Ana 09/20/23 at 1630, Flush volume based on line type and size. 1805 (Not Given - Provider: Kera Triplett RN - Reason: IV Infusing)204 (Given - Provider: Rm Stubbs RN) 0634 (Given - Provider: Rm Stubbs RN) valACYclovir (VALTREX) tablet 500 mg 500 mg, oral, 2 times daily, First dose (after last modification) on Ana 09/20/23 at 2100, Indications: Chronic Suppression, Skin/Soft Tissue Infection 2034 (Not Given - Provider: Rm Stubbs RN - Reason: Patient/family refused) 0900 (Due) Continuous Medication Order 09/19/2023 09/20/2023 09/21/2023 dextrose 5% and sodium chloride 0.45% with potassium chloride 20 mEq/L infusion (premix) (CANCELED) 50 mL/hr, intravenous, Continuous, Starting on Ana 09/20/23 at 1400, Phase I, Discontinue when tolerating regular diet 1400 (Due)1756 (New Bag - Provider: Kera Triplett RN) 0633 (Stopped - Provider: Rm Stubbs RN) Lactated Ringer's (LR) infusion (CANCELED) 50 mL/hr, intravenous, Continuous, Starting on Ana 09/20/23 at 1400, Phase I 1400 (Due)1447 (New Bag - Provider: Deepa Strickland RN)2044 (Stopped - Provider: Rm Stubbs RN) Lactated Ringer's (LR) infusion (CANCELED) 30 mL/hr, intravenous, Continuous, Starting on Ana 09/20/23 at 1045, Pre-Op 1004 (Due)1016 (New Bag - Provider: Sanjuana Tovar RN)1122 (Rate/Dose Verify - Provider: Kt Arredondo CRNA)1126 (Paused - Provider: Andreia Stark - Comment: Switch to gravity)1127 (Restarted - Provider: Andreia Stark)1240 (Anesthesia Volume Adjustment - Provider: Kt Arredondo CRNA)1250 (Anesthesia Volume Adjustment - Provider: Andreia Stark)1558 (Due: Stopped - Provider: Holly Benitez MD) PRN Medication Order 09/19/2023 09/20/2023 09/21/2023 BUPivacaine (MARCAINE) 0.25 % (2.5 mg/mL) preservative free injection (CANCELED) As needed, Starting on Ana 09/20/23 at 1253, Intra-Op 1253 (Given - Provider: Bib Ward MD)1313 (Given - Provider: Bib Ward MD) Carrier Fluids for Secondary Infusion - 0.9% Sodium Chloride 30 mL, intravenous, As needed, For priming tubing and/or flushing, Starting on Ana 09/20/23 at 1558, 0-250 ml/hr to flush line after IV infusions when no maintenance IV ordered. Infuse 30mL at the same rate as the secondary infusion. Run as primary IV, not intended for KVO. HYDROmorphone (DILAUDID) injection 0.2 mg (CANCELED) 0.2 mg, intravenous, Administer over 2 Minutes, Every 10 min PRN, 1st line for pain, Starting on Ana 09/20/23 at 1328, Phase I, Switch to 2nd line analgesic order if pain is uncontrolled or increasing after 2 doses. Notify Anesthesiologist if total PACU dose reaches 2 mg and pain score 5/10 or more., Indications: Pain 1346 (Given - Provider: Chelita Angel RN)1356 (Given - Provider: Chelita Angel RN)1406 (Given - Provider: Chelita Angel RN)1417 (Given - Provider: Chelita Angel RN)1434 (Given - Provider: Deepa Strickland RN) oxyCODONE (ROXICODONE) tablet 5 mg 5 mg, oral, Every 4 hours PRN, 1st line for pain, Starting on Ana 2 at 1558, May administer 1 hour after 1st line agent for uncontrolled or increasing pain. , Indications: Pain 2043 (Given - Provider: Rm Stubbs RN - Comment: abd pain) 0633 (Given - Provider: Rm Stubbs RN - Comment: abd pain) sodium chloride 0.9% flush 0.5-20 mL 0.5-20 mL, intra-catheter, As needed, line care, Starting on Ana 09/20/23 at 1558, Flush volume based on line type and size. Flush before and after each use. sodium chloride 0.9% irrigation (CANCELED) As needed, Starting on Ana 09/20/23 at 1202, Intra-Op 1202 (Given - Provider: Bib Ward MD) sterile water irrigation (CANCELED) As needed, Starting on Ana 09/20/23 at 1254, Intra-Op 1254 (Given - Provider: Bib Ward MD) documented in this encounter Orders Medications Ordered That Max ht Not Have Been Administered Count Last Ordered Date First Ordered Date BUPivacaine (MARCAINE) 0.25 % (2.5 mg/mL) preservative free injection 1 09/20/2023 Carrier Fluids for Secondary Infusion - 0.9% Sodium Chloride 2 09/20/2023 ceFAZolin (ANCEF) 2,000 mg/2 0 mL in sterile water (premix) 2,000 mg 1 09/20/2023 naloxone (NARCAN) 0.4 mg/mL injection 0.04-0.4 mg 1 09/20/2023 ondansetron (ZOFRAN) injection 4 mg 1 09/20 sodium chloride 0.9% flush 0.5-20 mL 2 08/2023 sodium chloride 0.9% irrigation 1 sterile water irrigation 1 09/20/2023 valACYclovir (VALTREX) tablet 500 mg 2 08/2023 Diet Count Last Ordered Date First Orde red Date ADULT DISCHARGE DIET 1 09/21/2023 Nursing Count Last Ordered Date First Orde red Date DISCHARGE ACTIVITY 2 09/21/2023 DISCHARGE CALL PROVIDER 6 09/21/2023 DISCHARGE DRESSING 5 09/21/2023 DISCHARGE INSTRUCTIONS 1 09/21/2023 Admission Count Last Ordered Date First Orde red Date INITIATE OBSERVATION SERVICES 1 09/20/2023 Discharge Count Last Ordered Date First Orde red Date DISCHARGE PATIENT 1 09/21/2023 ADT Patient Update Count Last Ordered Date Firs t Ordered Date PROVIDER TREATMENT TEAM 1 09/20/2023 documented in this encounter Care Teams Director On Air Relationship Specialty Start Date End Date Ton Hernandez NP [address] [place] [phone] PCP - General Nurse Practitioner 03/08/23 Crispin Shen MD Surgeon Colon and Rectal Surgery 09/09/20 Kemi Schmitz [address] [place] [address] Surgeon Colon and Rectal Surgery 05/16/21 Maria C Zacarias MD [address] [place] [address] A&P Mechanic Gastroenterology 04/02/23 documented as of this encounter
--- OUTSIDE RECORDS SUMMARY | 2024-08-18 09:53 | XMS_ITS | Encounter Summary ---
Author Organization [facility] Healthcare Address [address] [place] [address] Care Team Providers Care Accounting Support Specialist Name Role Phone Crispin Shen MD Unavailable [phone] Kemi Schmitz Unavailable Ton Hernandez NP Primary Care Provider [phone] Maria C Zacarias MD Unavailable [phone] Encounter Details Date Type Department Care Team (Late st Contact Info) Description 08/07/2023 Documentation [facility] OP Physical Therapy [address] [address] Kelly Fraser, PT Social History Tobacco Use Types Packs/Day Years [...] week 11/24/2020 How often do you attend [facility] or christian services? 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 Please refer to prior treatment/visit notes for objective findings and goal progress. 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 documented in this encounter Plan of Treatment Not on file documented as of this encounter Visit Diagnoses Not on filedocumented in this encounter Care Teams Accounting Support Specialist Relationship Specialty Start Date End Date Ton Hernandez NP [address] [place] [phone] PCP - General Nurse Practitioner 03/08/23 Crispin Shen MD Surgeon Colon and Rectal Surgery 09/09/20 Kemi Schmitz [address] [place] [address] Surgeon Colon and Rectal Surgery 05/16/21 Maria C Zacarias MD [address] [place] [address] Exterior Interior Specialist Gastroenterology 04/02/23 documented as of this encounter
--- OUTSIDE RECORDS SUMMARY | 2024-08-18 09:53 | XMS_ITS | Encounter Summary ---
Author Organization [facility] Address [address] [place] [address] Care Team Providers Care Technician Chemical Cleaning Name Role Phone Crispin Shen MD Unavailable [phone] Kemi Schmitz Unavailable Ton Hernandez NP Primary Care Provider [phone] Maria C Zacarias MD Unavailable Reason for Visit * Auth/Cert (Routine) Specialty Diagnoses / Procedures Referred By Contac t Referred To Contact Diagnoses Abdominal wall hernia Abdominal wall hernia [K43.9] Procedures ME RPR AA HERNIA 1ST 3-10 CM REDUCIBLE ME RPR AA HERNIA 1ST < 3 CM REDUCIBLE ####REPAIR VENTRAL HERNIA- abdominal wall hernia open Referral ID Status Reason Start Date Expiration Date Visits Re quested Visits Authorized [id number] 1 1 Encounter Details Date Type Department Care Team (Late st Contact Info) Description 09/20/2023 11:23 AM STROBOSCOPE OPERATOR - 09/20/2023 2:13 PM STROBOSCOPE OPERATOR Surgery [facility] Operating Room [address] [place] [phone] Bib Ward MD [phone] [place] [address] ####REPAIR VENTRAL HERNIA- abdominal wall hernia open Surgery Details Date/Time Status Location OR Service Patient Class Case Cl ass Case Type Trauma Case? 09/20/2023 11:23 AM Posted [facility] OR POD 2 209 Acute Critical Care Surgery Outpatient in Bed Elective Panel 1 Procedure LRB Anes Op Region Wound Class Comments ####REPAIR VENTRAL HERNIA- a bdominal wall hernia open Left General Abdomen Class I - Clean Surgeon Surgeon Role Service Panel Holly Benitez MD Resident - Assisting [facility] Surgery 1 Bib Ward MD Primary Acute [facility] Surgery 1 Case Notes 09/11 PER [place] VIA PHONE CALL @1239 MAKE LINEUP SC, JS, LL, GB- RC09/11 PER [place] VIA PHONE CALL MAKE CTC 100 MIN- RC09/06@1409: Per [place] via phone call, patient class changed to Outpatient in Bed versus Surgery Admit. SR documented in this encounter Social History Tobacco [...] How often do you attend chur or jainism services? 1 to 4 times per year 11/24/2020 Do you belong to any clubs o r organizations such as taoist groups, unions, fraternal or athletic groups, or [...] on file Legal Sex Female 9:36 AM STROBOSCOPE OPERATOR Gender Identity Female 11/16/2020 2:58 PM CDT Sexual Orientation Straight 11/16/2020 2: 58 PM CDT documented as of this encounter Last Filed Vital Signs Vital Sign Reading Time Taken Comments Blood Pressure 88/52 09/20/2023 2:10 PM STROBOSCOPE OPERATOR Pulse 81 09/20/2023 2:10 PM STROBOSCOPE OPERATOR Temperature 36.4 ??C (97.5 ??F) 09/20/2023 1:40 PM CS T Respiratory Rate 10 09/20/2023 2:10 PM STROBOSCOPE OPERATOR Oxygen Saturation 94% 09/20/2023 2:10 PM STROBOSCOPE OPERATOR Inhaled Oxygen Concentration - - Weight - - Height - - Body Mass Index - - documented in this encounter Discharge Summaries * Selene Tinoco NP - 09/21/2023 8:15 AM CST Images from the original note were not included. [facility] Emergency General Surgery Service Inpatient Discharge Summary This is a clinical resume for patient Belem Coto for attending Bib Ward* Admission Date: 09/20/2023 Admitting Provider: Bib Ward MD Discharge Date: 09/21/2023 Hospitalization: Total duration of encounter: 1 day Team: Acute Care Surgery Primary Care Provider: Ton Hernandez NP History of Present Illness: 52yoF PMH of rectovaginal fistula s/p colostomy and subsequent takedown ([facility] 05/18/22) c/b ventral hernia presenting for elective hernia repair OR 09/20 ([facility]) abdominal wall hernia repair with mesh Edited [...] rectovaginal fistula s/p colostomy and subsequent takedown ([facility] 05/18/22) c/b ventral hernia -OR 09/20 ([facility]) [...] call you may call the office at [phone] For Follow [facility] at [phone] Follow up Future Appointments Date Time Provider Department Center 10/30/2023 4:00 PM Mary Collier, DPT [id number] 1210 PT 11/13/2023 4:00 PM Mary Collier, DPT [id number] 1210 PT 11/27/2023 4:00 PM Mary Collier DPT [id number] 1210 PT All care plans discussed with rounding/operative attending: Bib Springer MD I spent 30 minutes completing this hospital discharge. Selene Tinoco NP 09/21/23 CC: Ton Hernandez NP Cosigned by Bib Ward MD at 09/21/2023 11:29 AM STROBOSCOPE OPERATOR BOSCOPE OPERATOR BOSCOPE OPERATOR documented in this encounter Medications at Time [...] gram packet Take 1 packet by mouth trim operator before breakfast turmeric root extract 500 [...] discharge needs arise, please contact the covering housing case manager. BOSCOPE OPERATOR * Sherry Navarrete MD - 09/20/2023 6:15 PM CST ACCS Post Op Check Note Belem Coto 1970 [id number] Pt returns from the OR 09/20/2023 s/p ####REPAIR VENTRAL HERNIA- abdominal wall hernia open (L) by Bib Ward MD for Pre-op Diagnosis * Abdominal wall hernia [K43.9] Pain:controlled Nausea: No Urine output adequate: Yes Diet: Dietary Orders (From admission, onward) Start Ordered 09/20/23 1559 Adult Diet Regular, Clear Liquid Diet effective now Comments: CLD, advance as tolerated Question Answer Comment ([facility]) Diet type Regular ([facility]) Diet type Clear Liquid 09/20/23 1558 Physical Exam: Vitals: 09/20/23 1805 BP: 101/55 Pulse: 86 Resp: Temp: 36.7 ??C (98 ??F) SpO2: 98% Constitutional: alert and oriented x3 and no acute distress Incision/Dressing is clean, dry, intact Assessment and Plan Doing well. Continue current management. BOSCOPE OPERATOR documented in this encounter H&P Notes * Bib Ward MD - 09/20/2023 10:33 AM CST No change in H&P BOSCOPE OPERATOR Source Note - Mitali Dutta NP - 09/11/2023 8:56 AM STROBOSCOPE OPERATOR Images from the original note were not included. 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 Rectovaginal fistula 08/31/2020 Past Medical History: Diagnosis Date Anxiety Depression Obesity Rectovaginal fistula Past Surgical History: Procedure Laterality Date ABDOMINOPLASTY 2010 APPENDECTOMY 1978 COLONOSCOPY 2008 COLOSTOMY 04/18/2020 ENDOMETRIAL ABLATION 2010 EXAMINATION UNDER [...] -- -- -- Tyra Crawford MD omega 6-llk-gpx-fish oil (Fish OiL) 1,000 mg (120 mg-180 [...] ofloxacin (OCUFLOX) 0.3 % ophthalmic solution omega 7-ctd-tkq-fish oil (Fish OiL) 1,000 mg (120 mg-180 [...] images may or may not represent the [place] source data set and thus may contain [...] for requested labs within last 30 days. BOSCOPE OPERATOR BOSCOPE OPERATOR documented in this encounter Miscellaneous Notes * Initial Assessments - Yolanda Torrez RN - 09/21/2023 8:15 AM STROBOSCOPE OPERATOR CM Initial Assessment Interview Note Information Obtained From: Patient (09/21/23813) Admission Source: from home Impression: 52 yr. Old admitted for Ventral hernia repair . Plan Includes: Discharge to home when medically stable Primary Source of Transportation: Does the patient need discharge transport arranged?: No (09/21/23813) No Daughter will be picking up patient Health Insurance Coverage: [facility] Prescription Coverage: yes Pharmacy: [facility] [place], [place] - [address] [facility] [address] [facility] [address] Primary Care Provider: Ton Hernandez NP verified Prior to Admission: Functional Status: Independent with ADLs Primary Caregiver: Self Support System: Spouse/Significant Other Home Care Services: No Outpatient Services: No Durable Medical Equipment: None Living Arrangements: Spouse/significant other Type of Residence: Private residence Steps in home?: Yes, Outside of home Number of steps outside: 2 steps Medication management: Independent (09/21/23813) Potential discharge needs include: learning and development manager will follow for post acute discharge needs such as therapy, nursing, medical equipment or agency referrals as indicated by the care team. Dialysis: no Behavioral Health Services: Behavioral Health Services: No (09/21/23813) Patient expects to be Discharged to: Private residence, (09/21/23813) Additional Information: Confirmed address and phone to [place]. Patient independent in ADLS. Family for assist [...] Collaboration with patient, MD, direct care nurse, International Bank Manager, and other members of the health care team to assure needed interventions completed. 2. Return patient to optimal level of self-care post discharge. 3. Press Reader will follow for Discharge Planning - interventions [...] with the aftercare plan. Yolanda Torrez RN BOSCOPE OPERATOR * Plan of Care - Rm Stubbs RN - 09/21/2023 7:45 AM CST Problem: Health Behavior: Goal: Understanding of discharge needs will improve Outcome: Progressing Problem: Lack of Knowledge: Goal: Ability to develop a pain control plan will improve Outcome: Progressing Patient had a calm night, mildly painful, wanting to dc in the morning BOSCOPE OPERATOR * Plan of Care - Kera Triplett RN - 09/20/2023 5:39 PM STROBOSCOPE OPERATOR Goals: Summary: BOSCOPE OPERATOR * Assessment & Plan Note - Tenisha Myers PA - 09/20/2023 1:59 PM STROBOSCOPE OPERATOR Associated Problem(s): Incarcerated ventral hernia SEE ABDOMINAL WALL HERNIA for assessment and plan BOSCOPE OPERATOR * Assessment & Plan Note - Tenisha Myers PA - 09/20/2023 1:59 PM STROBOSCOPE OPERATOR Associated Problem(s): Abdominal wall hernia -H/o rectovaginal [...] phone call in 3 weeks from discharge BOSCOPE OPERATOR BOSCOPE OPERATOR BOSCOPE OPERATOR * Assessment & Plan Note - Tenisha Myers PA - 09/20/2023 1:58 PM STROBOSCOPE OPERATOR Associated Problem(s): Acute post-operative pain -Ordered for tylenol and flexeril scheduled, PRN oxycodone BOSCOPE OPERATOR * Assessment & Plan Note - Tenisha Myers PA - 09/20/2023 1:58 PM STROBOSCOPE OPERATOR Associated Problem(s): Discharge planning issues 09/20 OR with [facility]; admission overnight for pain control BOSCOPE OPERATOR * Brief Op Note - Bib Ward MD - 09/20/2023 11:56 AM STROBOSCOPE OPERATOR Operative Progress Note Surgical Team: Surgeon(s) and Role: * Bib Ward MD - Primary * Holly Benitez MD - Resident - Assisting Anesthesiologist: Sánchez Stoddard MD ADOBE BALL MIXER: Bree Noel CRNA; Kt Arredondo CRNA Student Nurse Phlebotomist Supervisor/Instructor: Andreia Stark Community Health Outreach Worker: Lolita Grant RN; Toño Shields RN Scrub Relief: Chelita Norman ST Scrub: Ila [...] Implant Name Type Inv. Item Serial No. Winding Lathe Operator Lot No. [id number] No. Used Action [employer]C R BARD Ventralex St Sepra Sorbaflex 2.5in Spring Open Bioresorbable [id number] - [id number] [employer] B[employer] Ventralex St Sepra Sorbaflex 2.5in Spring Open Bioresorbable [id number] [employer] Bard [id number] Left 1 Implanted Blood/Blood Products Transfused: 0 mls Complications: None Condition on Discharge from the operating room was stable Holly Benitez MD Date: 09/20/2023 Time: 1:22 PM TEACHING ATTESTATION : I was present and directly participated in the entire procedure (including opening and closing). BOSCOPE OPERATOR BOSCOPE OPERATOR * Op Note - Bib Ward MD [...] and a timeout was performed as per [facility] Hospital policies. An elliptical incision was carried [...] the entire procedure. Job ID/Internal Job ID: [id number] BOSCOPE OPERATOR documented in this encounter Plan of Treatment Not on file documented as of this encounter Procedures Procedure Name Priority Date/Time Associated Diagnosis Comments REPAIR VENTRAL HERNIA 09/20/2023 11:27 AM STROBOSCOPE OPERATOR Abdominal wall hernia Case Notes 09/11 PER [place] VIA PHONE CALL @1239 MAKE LINEUP SC, JS, LL, GB- RC09/11 PER [place] VIA PHONE CALL MAKE CTC 100 MIN- RC09/06@1409: Per [place] via phone call, patient class changed to Outpatient in Bed versus Surgery Admit. SR POCT HCG, URINE Routine 09/20/2023 10:05 AM STROBOSCOPE OPERATOR documented in this encounter Results * POCT hCG, urine (09/20/2023 10:05 AM STROBOSCOPE OPERATOR) HCG, ur, POC Negative Negative Lot Number [id number] QC Backgroud Clear Acceptable QC Control Line Acceptable Urine 09/20/2023 10:0 5 AM STROBOSCOPE OPERATOR Niyah Bobby OIL FIELD EQUIPMENT MECHANIC SUPERVISOR POINT OF CARE TEST OR DERABLES Final Result documented in this encounter Visit Diagnoses Diagnosis Abdominal wall hernia- Primary Unspecified ventral hernia without mention of obstruction or gangrene Incarcerated ventral hernia Unspecified ventral hernia with obstruction Acute post-operative pain Discharge planning issues Abdominal wall hernia Unspecified ventral hernia without mention of obstruction or gangrene documented in this encounter Admitting Diagnoses Diagnosis [...] 2000, Indications: PainIndications:Pain Given 09/21/2023 4:21 AM STROBOSCOPE OPERATOR 1,000 mg Given 09/20/2023 8:42 PM STROBOSCOPE OPERATOR 1,000 mg acetaminophen (TYLENOL) tablet 1,000 mg 1,000 mg, oral, Once, On Ana 09/20/23 at 1445, For 1 dose, Phase I Given 09/20/2023 2:14 PM STROBOSCOPE OPERATOR 1,000 mg BUPivacaine (MARCAINE) 0.25 % (2.5 mg/mL) preservative free injection As needed, Starting on Ana 09/20/23 at 1253, Intra-Op Given 09/20/2023 1:13 PM STROBOSCOPE OPERATOR 10 mL Given 09/20/2023 12:53 PM STROBOSCOPE OPERATOR 20 mL dextrose 5% and sodium chloride 0.45% with potassium chloride 20 mEq/L infusion (premix) 50 mL/hr, intravenous, Continuous, Starting on Ana 09/20/23 at 1400, Phase I, Discontinue when tolerating regular diet New Bag 09/20/2023 5:56 PM STROBOSCOPE OPERATOR 50 mL/hr 50 mL/hr enoxaparin (LOVENOX) syringe 40 mg 40 mg, subcutaneous, Daily (for enoxaparin), First dose on Ana 09/20/23 at 2100, Indications: Deep Vein Thrombosis PreventionIndications:Deep Vein Thrombosis Prevention Given 09/20/2023 8:44 PM STROBOSCOPE OPERATOR 40 mg Right Lower Abdomen HYDROmorphone (DILAUDID) [...] more., Indications: PainIndications:Pain Given 09/20/2023 2:34 PM STROBOSCOPE OPERATOR 0.2 mg Given 09/20/2023 2:17 PM STROBOSCOPE OPERATOR 0.2 mg Given 09/20/2023 2:06 PM STROBOSCOPE OPERATOR 0.2 mg ketorolac (TORADOL) 30 mg/mL (1 mL) injection 30 mg 30 mg, intravenous, Once, On Ana 09/20/23 at 1515, For 1 dose, Phase I, For Adult IV push, administer over 15 seconds, Indications: Postoperative Acute PainIndications:Postoperative Acute Pain Given 09/20/2023 2:43 PM STROBOSCOPE OPERATOR 30 mg Lactated Ringer's (LR) infusion 50 mL/hr, intravenous, Continuous, Starting on Ana 09/20/23 at 1400, Phase I New Bag 09/20/2023 2:47 PM STROBOSCOPE OPERATOR 50 mL/hr 50 mL/h r Lactated Ringer's (LR) infusion 30 mL/hr, intravenous, Continuous, Starting on Ana 09/20/23 at 1045, Pre-Op Restarted 09/20/2023 11:27 AM STROBOSCOPE OPERATOR Rate/Dose Verify 09/20/2023 11:22 AM STROBOSCOPE OPERATOR 30 mL/ hr New Bag 09/20/2023 10:16 AM STROBOSCOPE OPERATOR 30 mL/hr 30 mL/hr oxyCODONE (ROXICODONE) tablet 5 mg 5 mg, oral, Every 4 hours PRN, 1st line for pain, Starting on Ana 09/20/23 at 1558, May administer 1 hour after 1st line agent for uncontrolled or increasing pain. , Indications: PainIndications:Pain Given 09/21/2023 6:33 AM STROBOSCOPE OPERATOR 5 mg Given 09/20/2023 8:43 PM STROBOSCOPE OPERATOR 5 mg prochlorperazine (COMPAZINE) injection 5 mg 5 mg, intravenous, Administer over 2 Minutes, Once, On Ana 09/20/23 at 1445, For 1 dose, Phase I Given 09/20/2023 2:15 PM STROBOSCOPE OPERATOR 5 mg sodium chloride 0.9% flush 0.5-20 mL 0.5-20 mL, intra-catheter, Every 8 hours scheduled, First dose on Ana 09/20/23 at 1630, Flush volume based on line type and size. Given 09/21/2023 6:34 AM STROBOSCOPE OPERATOR 10 mL Given 09/20/2023 8:47 PM STROBOSCOPE OPERATOR 10 mL sodium chloride 0.9% irrigation As needed, Starting on Ana 09/20/23 at 1202, Intra-Op Given 09/20/2023 12:02 PM STROBOSCOPE OPERATOR 3,000 mL Surgical Site sterile water irrigation As needed, Starting on Ana 09/20/23 at 1254, Intra-Op Given 09/20/2023 12:54 PM STROBOSCOPE OPERATOR 1,000 mL Surgical Site valACYclovir (VALTREX) tablet 500 mg 500 mg, oral, 2 times daily, First dose (after last modification) on Ana 09/20/23 at 2100, Indications: Chronic Suppression, Skin/Soft Tissue InfectionIndications:Chronic Suppression,Skin/Soft Tissue Infection documented in this encounter Discontinued Medications Medication Sig Discontinue Reason Start Date End Da te bisacodyl EC (DULCOLAX EC) 5 mg EC tabletIndications:Taylor baum Evacuation Take two tablets (total of 10mg) [...] Recently Administered Medications Times are shown in STROBOSCOPE OPERATOR. Scheduled Medication Order 09/19/2023 09/20/2023 09/21/2023 acetaminophen (TYLENOL) tablet 1,000 mg 1,000 mg, oral, Every 6 hours scheduled, First dose on Ana 09/20/23 at 2000, Indications: Pain 2041 (Given - Provider: Rm Stubbs RN) 0421 [...] 60 minutes of incision., Indications: Prophylaxis, Surgical 1152 (Given - Provider: Andreia Stark) enoxaparin (LOVENOX) [...] volume based on line type and size. 180 (Not Given - Provider: Kera Triplett RN - Reason: IV Infusing)2046 (Given - Provider: Rm Stubbs RN) 0634 [...] Triplett RN) 0633 (Stopped - Provider: Rm Stubbs, CHRIS) Lactated Ringer's (LR) infusion (CANCELED) 50 mL/hr, [...] Count Last Ordered Date First Ordered Date Carrier Fluids for Secondary Infusion - 0.9% Sodium Chloride 2 09/20/2023 ceFAZolin (ANCEF) 2,000 mg/2 0 mL in sterile water (premix) 2,000 mg 1 09/20/2023 naloxone (NARCAN) 0.4 mg/mL injection 0.04-0.4 mg 1 09/20/2023 ondansetron (ZOFRAN) injection 4 mg 1 09/20 sodium chloride 0.9% flush 0.5-20 mL 2 08/2023 valACYclovir (VALTREX) tablet 500 mg 2 08/2023 [...] 09/20/2023 documented in this encounter Care Teams Technician Chemical Cleaning Relationship Specialty Start Date End Date Ton Hernandez NP [address] [place] [phone] PCP - General Nurse Practitioner 03/08/23 Crispin Shen MD Surgeon Colon and Rectal Surgery 09/09/20 Kemi Schmitz [address] [place] [address] Surgeon Colon and Rectal Surgery 05/16/21 Maria C Zacarias MD [address] [place] [address] Title Curator Gastroenterology 04/02/23 documented as of this encounter
--- OUTSIDE RECORDS SUMMARY | 2024-08-18 09:53 | XMS_ITS | Encounter Summary ---
Author Organization [facility] Healthcare Address [address] [place] [address] Care Team Providers Care Credit Controller Name Role Phone Crispin Shen MD Unavailable [phone] Kemi Schmitz Unavailable Ton Hernandez NP Primary Care Provider [phone] Maria C Zacarias MD Unavailable [phone] Encounter Details Date Type Department Care Team (Late st Contact Info) Description 05/11/2023 9:00 AM CDT Lab [facility] Advanced Medicine [facility] Advanced Medicine ([facility]) [address] [place] [phone] Frequent bowel movements Social History Tobacco Use Types Packs/Day Years [...] How often do you attend chur or scientology services? 1 to 4 times per year 11/24/2020 Do you belong to any clubs o r organizations such as jewish groups, unions, fraternal or athletic groups, or [...] things needed for daily living? No 11/24/2020 Comments No Sex and Gender Information Value Date Recorded Sex Assigned at Not on file Legal Sex Female 9:36 AM OPTICAL EFFECTS LINE UP PERSON Gender Identity Female 11/16/2020 2:58 PM CDT Sexual Orientation Straight 11/16/2020 2: 58 PM CDT documented as of this encounter Plan of Treatment Not on file documented as of this encounter Procedures Procedure Name Priority Date/Time Associated Diagnosis Comments IRON PROFILE W/ IBC Routine 05/11/2023 9 :12 AM CDT Frequent bowel movements TISSUE TRANSGLUTAMINASE, IGA Routine 05/11/2023 9:12 AM CDT Frequent bowel movements CBC WITHOUT DIFFERENTIAL Routine 05/11/2023 9:12 AM CDT Frequent bowel movements IGA Routine 05/11/2023 9:12 AM CDT Frequent bowel movements FERRITIN Routine 05/11/2023 9:12 AM CDT Frequent bowel movements documented in this encounter Results * CBC without differential (05/11/2023 9:12 AM CDT) WBC 7.8 3.8 - 9.9 K/cumm [facility] Hgb 13.8 11.9 - 15.5 g/dL [facility] Hct 41.2 35.6 - 45.5 % [facility] Plt 254 150 - 400 K/cumm [facility] MPV 10.7 9.1 - 12.3 fL [facility] RBC 4.57 3.90 - 5.20 M/cumm [facility] MCV 90.2 81.3 - 96.4 fL [facility] MCH 30.2 27.1 - 33.3 pg [facility] MCHC 33.5 32.3 - 35.7 g/dL [facility] RDW CV 12.3 11.1 - 14.9 % [facility] RDW SD 40.4 35.7 - 48.1 fL [facility] NRBC abs 0.00 0.00 - 0.01 K/cumm [facility] Blood 05/11/2023 9:12 AM CDT 05/11/2023 9:42 AM CDT us Vivian Thornton MD LAB BLOOD ORDERABLES Final Res ult [facility] [place] [address] * Ferritin (05/11/2023 9:12 AM CDT) Ferritin 81 13 - 150 ng/mL [facility] Blood 05/11/2023 9:12 AM CDT 05/11/2023 9:42 AM CDT us Vivian Thornton MD LAB BLOOD ORDERABLES Final Res ult Performing Organization Address [facility] [place] [address] * Iron profile w/ IBC (05/11/2023 9:12 AM CDT) Iron 61 35 - 145 mcg/dL [facility] TIBC 269 250 - 400 mcg/dL [facility] Transferrin saturation 23 20 - 50 % [facility] Blood 05/11/2023 9:12 AM CDT 05/11/2023 9:42 AM CDT us Vivian Thornton MD LAB BLOOD ORDERABLES Final Res ult Performing Organization Address [facility] Co de Phone Number [facility] [place] [place] [address] * IgA (05/11/2023 9:12 AM CDT) Immunoglobulin A 156.0 70.0 - 400.0 mg/dL [facility] Blood 05/11/2023 9:12 AM CDT 05/11/2023 9:42 AM CDT us Vivian Thornton MD LAB BLOOD ORDERABLES Final Res ult [facility] [place] [address] * Tissue transglutaminase IgA (TGG-IgA Ab) (05/11/2023 9:12 AM CDT) TTG ab, IgA <0.5 <=14.9 units/mL [facility] Comment: Interpretive data Negative: <15 units/mL Positive: > or equal to 15 units/mL Current interpretive data was last revised on 2016. Blood 05/11/2023 9:12 AM CDT 05/11/2023 9:42 AM CDT us Vivian Thornton MD LAB BLOOD ORDERABLES Final Res ult [facility] Department [place] [address] documented in this encounter Visit Diagnoses Diagnosis Frequent bowel movements Other symptoms involving digestive system documented in this encounter Care Teams Credit Controller Relationship Specialty Start Date End Date Ton Hernandez NP [address] [place] [phone] PCP - General Nurse Practitioner 03/08/23 Crispin Shen MD Surgeon Colon and Rectal Surgery 09/09/20 Kemi Schmitz [address] [place] [address] Surgeon Colon and Rectal Surgery 05/16/21 Maria C Zacarias MD [address] [place] [address] Manager Customer Gastroenterology 04/02/23 documented as of this encounter
--- OUTSIDE RECORDS SUMMARY | 2024-08-18 09:53 | XMS_ITS | Encounter Summary ---
Author Organization [facility] Address [address] [facility] [address] [place] [address] Phone Care Team Providers Care Slasher Machine Operator Name Role Phone Crispin Shen MD Unavailable [phone] Kemi Schmitz Unavailable No, Physician Primary Care Provider [phone] Reason for Visit * Reason Comments Post-op Visit Colostomy takedown * Consultation (Routine) - Closed Specialty Diagnoses / Procedures Referred By Cecy t Referred To Contact Surgery / Colon and Rectal Surgery Diagnoses Rectovaginal fistula Kaitlyn Bowen MD [address] [place] [address] Phone: tel: fax: Crispin Shen MD [address] [facility] [phone] [place] [address] Phone: tel: fax: Referral ID Status Reason Start Date Expiration Date V isits Requested Visits Authorized [id number] Closed Specialty Services Required 02/02/2022 02/02/2023 12 12 Encounter Details Date Type Department Care Team (Late st Contact Info) Description 06/13/2022 10:45 AM CDT Office Visit [facility] Department of Surgery, Section of Colon and Rectal Surgery [address] [facility] [address]th Floor, [place] [address] Crispin Shen MD [address] [facility] [phone] [place] [address] Colostomy care (CMS/HCC) (HCC) (Primary Dx) Social History Tobacco Use Types [...] often do you attend chur ch or alevism services? 1 to 4 times per year 11/24/2020 Do you belong to any clubs o r organizations such as congregation groups, unions, fraternal or athletic groups, or school groups? No 11/24/2020 How often do you attend meet ings of the clubs or organizations you belong to? Never 11/24/2020 Are you , , di vorced, , never , or living with a partner? Living with partner 11/24/2020 AUDIT-C Answer Date Recorded Q1: How often do you have a drink containing alc ohol? 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 Gender Identity Female 11/16/2020 2:58 PM CDT Sexual Orientation Straight 11/16/2020 2: 58 PM CDT documented as of this encounter Last Filed Vital Signs Vital Sign Reading Time Taken Comments Blood Pressure 132/87 06/13/2022 10:27 AM CDT Pulse 63 06/13/2022 10:27 AM CDT Temperature 36.5 ??C (97.7 ??F) 06/13/2022 10:27 AM C DT Respiratory Rate - - Oxygen Saturation - - Inhaled Oxygen Concentration - - Weight 94.8 kg (209 lb) 06/13/2022 10:27 AM CDT Height 177.8 cm (5' 10 ) 06/13/2022 10:27 AM CDT Body Mass Index 29.99 06/13/2022 10:27 AM CDT documented in this encounter Ordered Prescriptions Prescription Sig Dispense Quantity Refills Last Filled Start Date End Date gabapentin (NEURONTIN) 100 mg capsule Take 1 capsule (100 mg total) by mouth 3 (three) times a day 30 capsule 06/13/2022 3 cyclobenzaprine (FLEXERIL) 5 mg tablet Take 1 tablet (5 mg total) by mouth 2 (two) times a day as needed for muscle spasms 30 tablet 06/13/2022 3 amoxicillin-clavul anate (AUGMENTIN) 875-125 mg per tablet Take 1 tablet by mouth 2 (two) times a day for 7 days 14 tablet 06/13/2022 2 documented in this encounter Progress Notes * Crispin Shen MD - 06/13/2022 10:45 AM CDT Colorectal Post-operative Visit Patient ID: Belem Smtih is a 51 y.o. female who is a month out from a colostomy closure. She isdoing well as far as the fistula goes. She has not had any discharge. She has some pain around her incision that happens intermittently and feels crampy. She said her incision has become erythematousjust over the last 24 hours. Physical Exam: On exam, there is some mild blanching erythema around her ostomy site. There is nothing that appears to be an abscess. It is otherwise filled in quite well. There is no fluctuance or induration. It is not tender. Assessment and Plan: Ms. Smith has a little bit of cellulitis around her colostomy closure site. As for the pain, I told him it could possibly be a hernia but we would do anything about it at this point. We are going to have her take Augmentin for the cellulitis. We are going to give her Flexeril and gabapentin for the pain. She knows to see me back if she has any problems. She wants to have a colonoscopy with us at some point I told her she can just call the office to arrange that. 06/13/2022 Crispin Shen MD This note was created in part with the assistance of [employer] voice recognition software. Form Designer variances and error may occur. Not every sentence has been reviewed in its entirety. For questions about the documentation above, please contact Dr. Shen. documented in this encounter Plan of Treatment Not on file documented as of this encounter Visit Diagnoses Diagnosis Colostomy care (HCC)- Primary Attention to colostomy documented in this encounter Care Teams Slasher Machine Operator Relationship Specialty Start Date End Date No, Physician PCP - General 05/22/22 03/07/23 Crispin Shen MD Surgeon Colon and Rectal Surgery 09/09/20 Kemi Schmitz [address] [facility] [place] [address] Surgeon Colon and Rectal Surgery 05/16/21 documented as of this encounter
--- OUTSIDE RECORDS SUMMARY | 2024-08-18 09:53 | XMS_ITS | Encounter Summary ---
Author Organization [facility] Healthcare Address [address] [place] [address] Care Team Providers Care Human Geography Faculty Member Name Role Phone Crispin Shen MD Unavailable [phone] Kemi Schmitz Unavailable Ton Hernandez NP Primary Care Provider [phone] Maria C Zacarias MD Unavailable [phone] Encounter Details Date Type Department Care Team (Late st Contact Info) Description 04/10/2023 Plan of Care Documentation [facility] OP Physical Therapy [address] [address] Social History Tobacco Use Types Packs/Day Years [...] How often do you attend chur or lutheran services? 1 to 4 times per year 11/24/2020 Do you belong to any clubs o r organizations such as congregational groups, unions, fravIPtela or athletic groups, or school groups? 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 Gender Identity Female 11/16/2020 2:58 PM CDT Sexual Orientation Straight 11/16/2020 2: 58 PM CDT documented as of this encounter Plan of Treatment Not on file documented as of this encounter Visit Diagnoses Not on filedocumented in this encounter Care Teams Human Geography Faculty Member Relationship Specialty Start Date End Date Ton Hernandez NP [address] [place] [phone] PCP - General Nurse Practitioner 03/08/23 Crispin Shen MD Surgeon Colon and Rectal Surgery 09/09/20 Kemi Schmitz [address] [place] [address] Surgeon Colon and Rectal Surgery 05/16/21 Maria C Zacarias MD [address] [place] [address] Gas Pump Attendant Gastroenterology 04/02/23 documented as of this encounter
--- OUTSIDE RECORDS SUMMARY | 2024-08-18 09:53 | XMS_ITS | Encounter Summary ---
Author Organization [facility] Healthcare Address [address] [place] [address] Care Team Providers Care Forming Machine Upkeep Mechanic Name Role Phone Crispin Shen MD Unavailable [phone] Kemi Schmitz Unavailable Ton Hernandez NP Primary Care Provider [phone] Maria C Zacarias MD Unavailable [phone] Reason for Visit * Reason Comments Throat Swelling Encounter Details Date Type Department Care Team (Late st Contact Info) Description 06/15/2023 11:21 PM CDT - 06/16/2023 1:00 AM CDT Emergency [facility] Emergency Department [address] [place] [address] Kitty Lilly MD [address] [place] [address] Toxic effect of caustic substance, accidental or unintentional, initial encounter (Primary Dx); Laryngitis Discharge Disposition: Discharge to home or self [...] How often do you attend chur or latter-day services? 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 Gender Identity Female 11/16/2020 2:58 PM CDT Sexual Orientation Straight 11/16/2020 2: 58 PM CDT documented as of this encounter Last Filed Vital Signs Vital Sign Reading Time Taken Comments Blood Pressure 134/91 06/16/2023 12:30 AM CDT Pulse 83 06/16/2023 12:30 AM CDT Temperature 36.6 ??C (97.9 ??F) 06/15/2023 11:33 PM C DT Respiratory Rate 16 06/16/2023 12:30 AM CDT Oxygen Saturation 95% 06/16/2023 12:30 AM CDT Inhaled Oxygen Concentration - - Weight 90.7 kg (200 lb) 06/15/2023 11:33 PM CDT Height 177.8 cm (5' 10 ) 06/15/2023 11:33 PM CDT Body Mass Index 28.7 06/15/2023 11:33 PM CDT documented in this encounter Discharge Instructions * Discharge Instructions* Luana Sage MD - 06/16/2023 12:34 AM CDT You were evaluated in the emergency department at [facility] for hoarse voice subsequent to choking on some uogy-kpz-acxzbqx supplements yesterday. Our furs salesperson (ear nose and throat surgeon) evaluated you with a flexible laryngoscope (a camera that looks down your throat) and did see some swelling and redness to the tissue on one side of your throat, right by your vocal cords. This is called a laryngitis, and should get better with time. He would recommend voice rest (trying raymond kind to your voice and use it minimally) for at least a few days, along with a week of an antacid medicine like famotidine, and a single dosepack of a steroid (to help with swelling) called methy lprednisolone (brand name Medrol ). I have written both of these as prescriptions, although you can also buy famotidine (brand name Pepcid) over the counter. If you have any continuing issues at theone week ankit you can follow up with them in their clinic as needed. In the meantime, if you symptoms worsen dramatically or you develop new concerning symptoms, please return to the ER. Thank you for trusting us with your health. * Attachments The following attachments cannot be sent through Care Everywhere. * Laryngitis (AfterCare(R) Instructions(ER/ED)) (Puerto Rican) documented in this encounter Medications at Time of Discharge lysine 1,000 mg tablet Take 1,000 mg by mouth nightly turmeric root extract 500 mg capsule Take 500 mg by mouth nightly valACYclovir (VALTREX) 500 mg tablet Take 1 tablet (500 mg total) by mouth 3 (three) times a day 10/02/2022 methylPREDNISolo ne (MEDROL DOSEPACK) 4 mg DosepackIndicati ons:Laryngitis Take as directed on package 1 packet 06/16/2023 06/22/2023 ascorbic acid (VITAMIN C) 1,000 mg tabletIndication s:Vitamin C Deficiency,suppl ement Take 1 tablet (1,000 mg total) by mouth nightly 09/11/2023 atomoxetine (STRATTERA) 25 mg capsule 2 capsules (50 mg total) daily 04/26/2023 09/11/2023 biotin 1,000 mcg tablet,chewable Take 1 capsule by mouth daily 09/11/2023 cholecalciferol (VITAMIN D-3) 2000 unit capsuleIndicatio ns:Vitamin D Deficiency Take 1 capsule (2,000 Units total) by mouth nightly 09/11/2023 famotidine (PEPCID) 20 mg tabletIndication s:Laryngitis Take 1 tablet (20 mg total) by mouth daily for 7 days 7 tablet 06/16/2023 09/11/2023 loperamide (IMODIUM A-D) 2 mg tablet Take 1 tablet (2 mg total) by mouth 4 (four) times a day as needed 09/11/2023 metroNIDAZOLE (FLAGYL) 250 mg tablet 05/25/2023 09/11/2023 multivitamin capsuleIndicatio ns:Vitamin Deficiency Prevention Take 1 capsule by mouth nightly 09/11/2023 ofloxacin (OCUFLOX) 0.3 % ophthalmic solution 02/23/2023 09/11/2023 omega 0-hbv-crv-fish oil (Fish OiL) 1,000 mg (120 mg-180 mg) capsule Take 1 capsule (1,000 mg total) by mouth nightly 09/11/2023 omega-3 fatty acids-fish oil 300-1,000 mg capsuleIndicatio ns:for supplement Take 1 capsule (1 g total) by mouth nightly 09/11/2023 prednisoLONE acetate (PRED FORTE) 1 % ophthalmic suspension 03/29/2023 09/11/2023 Prolensa 0.07 % drops 02/23/2023 09/11/2023 zinc 50 mg tabletIndication s:for supplement Take 50 mg by mouth nightly 09/11/2023 documented as of this encounter Ordered Prescriptions Prescription Sig Dispense Quantity Refills Last Filled Start Date End Date methylPREDNISolone (MEDROL DOSEPACK) 4 mg DosepackIndication s:Laryngitis Take as directed on package 1 packet 06/16/2023 3 famotidine (PEPCID) 20 mg tabletIndications: Laryngitis Take 1 tablet (20 mg total) by mouth daily for 7 days 7 tablet 06/16/2023 4 documented in this encounter Discharge Disposition Disposition Code Departure Means Destination Comment s Discharge to home or self care documented in this encounter Consult Notes * Jr Ray MD - 06/16/2023 12:31 AM CDTAssociated Order(s): IP CONSULT TO ENT Otolaryngology - Head & Neck Surgery Consult Attending Physician: Dr. Hwang Reason for Consult: Pill laryngitis Requesting Team: ED Requesting Provider: Dr. Eriberto Lopez Belem Coto is a 52 y.o. female with a history of anxiety and depression who presents with sore throat. She states she was in her usual state of health driving home yesterday when she attemptedto swallow 5 digestive enzyme pills at once. He is got stuck in her throat, briefly obstructing herairway. She was ultimately able to cough up the pills, but immediately afterward noted severe sore throat and hoarseness. As far as p.o. intake is concerned, she is still able to drink liquids, but her solid food intake is minimal. She feels a sensation of something being stuck in her throat -- shepoints to the hyoid when asked where. She denies any difficulty breathing. She is having difficulty swallowing her saliva, which causes her to cough. She is not noted any hemoptysis. She denies any prior history of vocal surgery. She does not smoke or drink alcohol. 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 ([facility] ([facility]) Anal sphincter incontinence Encounter for screening colonoscopy Past Surgical History: Procedure Laterality Date ABDOMINOPLASTY 2009 APPENDECTOMY 1977 COLONOSCOPY 2007 COLOSTOMY 04/18/2020 ENDOMETRIAL ABLATION 2010 EXAMINATION UNDER ANESTHESIA 2021 RECTAL EXAMINATION UNDER ANESTHESIA 12/29/2019 RECTAL EXAMINATION UNDER ANESTHESIA 01/21/2021 Exam under anesthesia, unroofing of abscess cavity, seton placement RECTAL SURGERY 01/05/2020 Endorectal Advancement Flap RECTAL SURGERY 04/14/2020 Bulbocavernosus Flap Closure of Rectovaginal Fistula REVISION COLOSTOMY 11/24/2020 Gracillis flap repair of anal vaginal fistula and colostomy revision TREATMENT FISTULA ANAL 03/04/2021 Exam anesthesia, anal fistula plug treatment of fistula. Social History Tobacco Use Smoking status: Never Smokeless tobacco: Never Substance and Sexual Activity Drug use: Never Sexual activity: Defer Alcohol Use: Not At Risk (05/14/2023) AUDIT-C Frequency of Alcohol Consumption: Never Average Number of Drinks: Patient does not drink Frequency of Binge Drinking: Never Family History Problem Relation Age of Onset Thyroid cancer Mother Anesthesia problems Neg Hx No Known Allergies (Not in a hospital admission) Current Outpatient Medications Medication Instructions ascorbic acid (VITAMIN C) 1,000 mg, oral, Nightly atomoxetine (STRATTERA) 50 mg, Daily biotin 1,000 mcg tablet,chewable 1 capsule, oral, Daily cholecalciferol (VITAMIN D-3) 2,000 Units, oral, Nightly loperamide (IMODIUM A-D) 2 mg, oral, 4 times daily PRN lysine 1,000 mg, oral, Nightly metroNIDAZOLE (FLAGYL) 250 mg tablet multivitamin capsule 1 capsule, oral, Nightly ofloxacin (OCUFLOX) 0.3 % ophthalmic solution omega 6-nhu-wdr-fish oil (Fish OiL) 1,000 mg (120 mg-180 mg) capsule 1 g, oral, Nightly omega-3 fatty acids-fish oil 300-1,000 mg capsule 1 g, oral, Nightly prednisoLONE acetate (PRED FORTE) 1 % ophthalmic suspension Prolensa 0.07 % drops turmeric root extract 500 mg, oral, Nightly valACYclovir (VALTREX) 500 mg, oral, 3 times daily zinc 50 mg, oral, Nightly Review of Systems: An 11 point review of systems was performed and was negative except as per HPI. Objective Physical Exam: Vitals: 06/15/23 2333 06/16/23 0000 BP: 124/81 133/83 Pulse: 86 90 Resp: 16 13 Temp: 36.6 ??C (97.9 ??F) TempSrc: Oral SpO2: 98% 95% Weight: 90.7 kg (200 lb) Height: 177.8 cm (5' 10 ) General: Awake, NAD Head: NC, AT Eyes: Sclera white, no injection or chemosis, no periorbital edema Ears: Not deformed, no drainage Nose: No nasal bleeding, no flaring Mouth: No OC/OP bleeding, tolerating secretions, MMM, no significant pharyngeal erythema. Neck: Soft and flat, left side of the larynx is tender to palpation CV: RRR Pulm: NLB, no stridor, no stertor. Patient is able to tolerate lying flat. Skin: WWP Neuro: OE, R, FC; AOx3; CN grossly intact; MAEWx4 Voice: perception of her voice reveal severe roughness, moderate strain, mild asthenia. Lab/Radiology/Diagnostic Review: Imaging review: I have reviewed the result(s) the chest x-ray, which does not show any acute cardiopulmonary abnormalities. CT neck per outside read shows soft tissue thickening and edema within the glottic and supraglottic larynx. Procedures performed: FLEXIBLE NASOLARYNGOSCOPY After obtaining verbal consent, a comprehensive upper airway exam was performed using a flexible fiberoptic scope. The nasal passages were anesthetized with 1mL of 4% topical lidocaine nasal spray and oxymetazoline. The endoscope was passed gently along in the inferior border of the nose in the rightnare. The nasal cavity was unremarkable. No mucopurulence, polyps, ulcers, or lesions were seen. The nasopharynx was erythematous. The oropharynx was non-erythematous and without masses or lesions. Base of tongue, vallecula, epiglottis, pyriform sinuses were within normal limits. There was trace watery edema of the arytenoids with overlying erythema. Vocal cords were symmetrically mobile with full range of motion. No nodules or lesions were identified on the vocal cords. The airway was widely patent. The scope was removed from the patient's nose and she tolerated the procedure well. Assessment/Plan 52 y.o. female with presenting with 24 hours of dysphonia, globus, and sore throat after failing toswallow 5 pills at once. Scope examination is notable for erythema of the nasopharynx and arytenoids with minimal edema and widely patent airway. Overall this is most consistent with acute pill-induced laryngitis. -Medrol dosepak -H2 giles x 1 week -Encouraged patient to rest her voice over the next few days -Return precautions -Patient may follow-up with ENT as needed Thank you for the interesting consult. Please call if you have further questions or concerns. Jr Ray MD PGY-3 Otolaryngology-Head & Neck Surgery QUESTIONS: Jr Ray MD For Questions during Weekdays Daytime: Epic secure chat or phone call: AMION>Otolaryngology> [facility] Existing Consults After Hours: AMION>Otolaryngology> [facility] Resident Primary (New Consults) ENT scheduling line: [phone] (please include in discharge paperwork as needed) Cosigned by Krysten Hwang MD at 06/18/2023 3:32 PM CDT Associated attestation - Krysten Hwang MD - 06/18/2023 3:32 PM CDT The resident/fellow saw and examined the patient, we discussed their findings, and I am in agreement with the plan based on the discussion with the resident/fellow. I did not personally examine the patient. documented in this encounter ED Notes * Kitty Lilly MD - 06/15/2023 11:36 PM CDT HPI Chief Complaint Patient presents with ??? Throat Swelling 52 yo F transferred to our ED from [facility] by EMS for higher level of care. Last night patient choked on 5 pills she was taking simultaneously. Pills were OTC digestive enzymes (Zypan brand, [facility] She pulled the car over and managed to clear her airway and got one pill out. Pain in throat/neck, and globus sensation since. From review of outside note it appears she went to one ED, got XRs, then eventually went to [facility] where she got XR and then CT Neck W Contrast. States that if she swallows she feels like her saliva backs up and then she starts to cough which is painful in her throat. Voice is hoarse. Per EMS, VSS en route. ORA. On my initial exam she is in no acute distress, having no issues with breathing, is not visibly struggling to handle secretions. Patient History: Patient Active Problem List Diagnosis Date Noted ??? Anal sphincter incontinence 02/22/2023 ??? Encounter for screening colonoscopy 02/22/2023 ??? Vaginal fistula 03/16/2022 ??? Colostomy in place ([facility]) ([facility]) 03/16/2022 ??? Anal fistula 02/08/2021 ??? Rectovaginal fistula 08/31/2020 Past Medical History: Diagnosis Date ??? Anxiety ??? Depression ??? Obesity Past Surgical History: Procedure Laterality Date ??? ABDOMINOPLASTY 2009 ??? APPENDECTOMY 1977 ??? COLONOSCOPY 2007 ??? COLOSTOMY 04/18/2020 ??? ENDOMETRIAL ABLATION 2010 ??? EXAMINATION UNDER ANESTHESIA 2021 ??? RECTAL EXAMINATION UNDER ANESTHESIA 12/29/2019 ??? RECTAL EXAMINATION UNDER ANESTHESIA 01/21/2021 Exam under anesthesia, unroofing of abscess cavity, seton placement ??? RECTAL SURGERY 01/05/2020 Endorectal Advancement Flap ??? RECTAL SURGERY 04/14/2020 Bulbocavernosus Flap Closure of Rectovaginal Fistula ??? REVISION COLOSTOMY 11/24/2020 Gracillis flap repair of anal vaginal fistula and colostomy revision ??? TREATMENT FISTULA ANAL 03/04/2021 Exam anesthesia, anal fistula plug treatment of fistula. Family History Problem Relation Age of Onset ??? Thyroid cancer Mother ??? Anesthesia problems Neg Hx Social History Tobacco Use ??? Smoking status: Never ??? Smokeless tobacco: Never Vaping Use ??? Vaping Use: Never used Substance and Sexual Activity ??? Alcohol use: Not Currently ??? Drug use: Never ??? Sexual activity: Defer Social History Social History Narrative ??? Not on file Review of Systems Review of Systems HENT: Positive for sore throat, trouble swallowing and voice change. Respiratory: Positive for choking (once as in HPI). Physical Exam ED Triage Vitals [06/15/23 2333] Temp Pulse Resp BP SpO2 36.6 ??C (97.9 ??F) 86 16 124/81 98 % Temp src Heart Rate Source Patient Position BP Location FiO2 (%) Oral -- -- -- -- Height Height Method Weight Weight Method 1.778 m (5' 10 ) -- 90.7 kg (200 lb) -- Physical Exam Constitutional: General: She is not in acute distress. Appearance: She is not ill-appearing. HENT: Head: Normocephalic and atraumatic. Mouth/Throat: Pharynx: Oropharynx is clear. Eyes: General: No scleral icterus. Pulmonary: Effort: Pulmonary effort is normal. No respiratory distress. Abdominal: General: Abdomen is flat. Musculoskeletal: General: No deformity. Skin: General: Skin is warm and dry. Neurological: General: No focal deficit present. Mental Status: She is alert and oriented to person, place, and time. Psychiatric: Behavior: Behavior normal. MDM Medical Decision Making Pill bolus got stuck while driving, choked briefly, globus sensation and discomfort since, along with hoarse voice. Suspect pill laryngitis +/- pill esophagitis. CT Neck at OSH with focal narrowing of airway. Zypan brand digestive enzyme OTC supplement. Based on my web research, ingredients are as follows: beta hydrochloride, bovine pancreas Cytosol[tm] extract, pepsin (1:10,000), pancreatin (3x), stearic acid (vegetable source), ammonium chloride, bocine spleen, ovine spleen. Other ingredients: cellulose and calcium stearate. Plan for c/s to ENT. DDX: vocal cord irritation / edema, tracheitis, epiglottitis, esophagitis, globus sensation, vs other. Further care as below in ED Course. Amount and/or Complexity of Data Reviewed Independent Historian: EMS External Data Reviewed: radiology. Details: No foreign bodies identified. Risk Prescription drug management. Attending Summary of Care ED Course as of 06/17/23 0405 Time: 06/15 9566 Comment: Late entry d/t patient care. D/W ENT earlier. They are bedside now with disposable scope. By: Luana Sage MD Time: 06/160 Comment: Assisted ENT with scope. Some unilateral erythema around arytenoids, but otherwise largelyreassuring on my interpretation of scope imagery. Will await their recs. Also present, Dr Lilly. By: Luana Sage MD Time: 06/16 0031 Comment: ENT recs: medrol dose pack, H2 giles, voice rest, f/u in 1-2 weeks with ENT electively if still having issues. By: uLana Sage MD Time: 06/163 Comment: I personally discussed with patient the workup and findings, discharge plan with ENT recs,follow-up, return precautions; all questions answered. Discharge pending. By: Luana Sage MD Toxic effect of caustic substance, accidental or unintentional, initial encounter Laryngitis IKitty MD, personally examined and evaluated the patient in conjunction with the clinical team/ resident and agree with the assessment, treatment plan and disposition of the patient as recorded by the resident Kitty Lilly MD 06/17/23420 * Rohit Mathis RN - 06/15/2023 11:34 PM CDT Pt to the ER via EMS from OSH with complaint of throat swelling. Pt took 5 pills last night and choked on them. Pt arrives with airway intact, horse vocals, A&Ox4, VSS. * Juanito Degroot RN - 06/15/2023 11:21 PM CDT Bed: [facility] Expected date: 06/15/23 Expected time: 9:53 PM Means of arrival: Comments: Juanito Degroot RN 06/15/232320 documented in this encounter Miscellaneous Notes * ED Procedure Note - Kitty Lilly MD - 06/16/2023 1:00 AM CDT Procedure Procedures GRANITE SANDBLASTER APPRENTICE SCOPE Resident supervised: Calibration Laboratory Technician resident Supervision: I was immediately available for the entire procedure and directly participated in the following lala portions: scope insertion. Kitty Andre MD, MD 06/17/23420 * ED Pre-Arrival Note - Kemi Jarquin RN - 06/15/2023 9:54 PM CDT Pre-Arrival Note The patient is coming from [facility] and is accepted by ENT . The patient swallowed some pills last night and feels they are stuck in her airway . The patient has per cat scan narrowing in her airway and has some edema. The patient is maintaining airway . Dr Kay received report Kemi Jarquin RN documented in this encounter Plan of Treatment Not on file documented as of this encounter Visit Diagnoses Diagnosis Toxic effect of caustic substance, accidental or unintentional, initial encounter- Primary Laryngitis Acute laryngitis, without mention of obstruction documented in this encounter Orders Consult Count Last Ordered Date First Orde red Date IP CONSULT TO ENT 1 06/15/2023 documented in this encounter Care Teams Forming Machine Upkeep Mechanic Relationship Specialty Start Date End Date Ton Hernandez NP [address] [place] [address] PCP - General Nurse Practitioner 03/08/23 Crispin Shen MD Surgeon Colon and Rectal Surgery 09/09/20 Kemi Schmitz [address] [place], [place] [id number] Surgeon Colon and Rectal Surgery 05/16/21 Maria C Zacarias MD [address] [place] [address] Grill Prep Cook Gastroenterology 04/02/23 documented as of this encounter
--- OUTSIDE RECORDS SUMMARY | 2024-08-18 09:53 | XMS_ITS | Encounter Summary ---
Author Organization [facility] Healthcare Address [address] [place] [address] Care Team Providers Care Electrical Maintenance Mechanic Name Role Phone Crispin Shen MD Unavailable [phone] Kemi Schmitz Unavailable Ton Hernandez NP Primary Care Provider [phone] Maria C Zacarias MD Unavailable [phone] Encounter Details Date Type Department Care Team (Latest Contact Info) Description 05/14/2023 12:13 PM CDT - 05/14/2023 11:59 PM CDT Hospital Encounter [facility] ([facility]) [address] [place] [id number] Discharge Disposition: Discharge to home or self [...] often do you attend chur ch or caodaism services? 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 Gender Identity Female 11/16/2020 2:58 PM CDT Sexual Orientation Straight 11/16/2020 2: 58 PM CDT documented as of this encounter Medications at Time of Discharge lysine 1,000 mg tablet Take 1,000 mg by mouth nightly turmeric root extract 500 mg capsule Take 500 mg by mouth nightly valACYclovir (VALTREX) 500 mg tablet Take 1 tablet (500 mg total) by mouth 3 (three) times a day 10/02/2022 ascorbic acid (VITAMIN C) 1,000 mg tabletIndication s:Vitamin C Deficiency,suppl ement Take 1 tablet (1,000 mg total) by mouth nightly 09/11/2023 atomoxetine (STRATTERA) 25 mg capsule 2 capsules (50 mg total) daily 04/26/2023 09/11/2023 cholecalciferol (VITAMIN D-3) 2000 unit capsuleIndicatio ns:Vitamin D Deficiency Take 1 capsule (2,000 Units total) by mouth nightly 09/11/2023 multivitamin capsuleIndicatio ns:Vitamin Deficiency Prevention Take 1 capsule by mouth nightly 09/11/2023 ofloxacin (OCUFLOX) 0.3 % ophthalmic solution 02/23/2023 09/11/2023 omega-3 fatty acids-fish oil 300-1,000 mg capsuleIndicatio ns:for supplement Take 1 capsule (1 g total) by mouth nightly 09/11/2023 prednisoLONE acetate (PRED FORTE) 1 % ophthalmic suspension 03/29/2023 09/11/2023 Prolensa 0.07 % drops 02/23/2023 09/11/2023 zinc 50 mg tabletIndication s:for supplement Take 50 mg by mouth nightly 09/11/2023 documented as of this encounter Discharge Disposition Disposition Code Departure Means Destination Discharge to home or self care documented in this encounter Plan of Treatment Not on file documented as of this encounter Visit Diagnoses Not on filedocumented in this encounter Care Teams Electrical Maintenance Mechanic Relationship Specialty Start Date End Date Ton Hernandez NP [address] [place] [address] PCP - General Nurse Practitioner 03/08/23 Crispin Shen MD Surgeon Colon and Rectal Surgery 09/09/20 Kemi Schmitz [address] [place] [address] Surgeon Colon and Rectal Surgery 05/16/21 Maria C Zacarias MD [address] [place] [address] Public Relations Writer Gastroenterology 04/02/23 documented as of this encounter
--- OUTSIDE RECORDS SUMMARY | 2024-08-18 09:53 | XMS_ITS | Encounter Summary ---
Author Organization [facility] Healthcare Address [address] [place] [address] Care Team Providers Care Wholesale Account Executive Name Role Phone Crispin Shen MD Unavailable [phone] Kemi Schmitz Unavailable Ton Hernandez NP Primary Care Provider [phone] Maria C Zacarias MD Unavailable [phone] Reason for Visit * Reason Comments PT Initial Eval * Physical Therapy (Routine) - Closed Specialty Diagnoses / Procedures Referred By Cecy t Referred To Contact Physical Therapy Diagnoses Anal sphincter incontinence Crispin Shen MD [address] [facility] [phone] [place] [address] Phone: tel: fax: [facility] Therapy [address] [place] [id number] Phone: tel: fax: Referral ID Status Reason Start Date Expiration Date V isits Requested Visits Authorized [id number] Closed Specialty Services Required 04/10/2023 08/19/2023 12 20 Encounter Details Date Type Department Care Team (Late st Contact Info) Description 04/10/2023 7:45 AM CDT Therapy [facility] Therapy [address] [place] [id number] Viridiana Yu, PT Anal sphincter incontinence (Primary Dx); Pelvic floor dysfunction Social History Tobacco Use Types Packs/Day Years [...] often do you attend chur ch or christian services? 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 Pelvic Floor Dysfunction Physical Therapy Evaluation /Initial Certification 04/10/2023 Belem Coto 1970 52 y.o. female LAUREN SHAY ICD-9-CM ICD-10-CM 1. Anal sphincter incontinence 787.60 R15.9 2. Pelvic floor dysfunction 618.83 M62.89 Physical Therapy Diagnosis: faulty posture, weak core musculature, connective tissue restrictions, and pelvic floor muscle dysfunction Past Medical History: Diagnosis Date Anxiety Depression Obesity Past Surgical History: Procedure Laterality Date ABDOMINOPLASTY [...] anesthesia, anal fistula plug treatment of fistula. Precautions: none Relevant Comorbidities: multiple colon surgeries; Abdominoplasty; anxiety; depression Subjective: # Pregnancies/Deliveries: 3 : no Tearing: yes, complete tear to anal opening Episiotomy: yes Menopause: no; hormone level per blood work says she is not in menopause yet Surgical Patient: yes If yes, date of surgery: 2009 Abdominoplasty; 2010 Endometrial Ablation; Anal Fistula Surgery: 01/05/2020, 04/14/2020; Episioproctotomy; [facility]: 3 surgeries on colon in 2021 History of Present Condition Date of Onset: years Description of Onset: States she was leaking stool with running and heavy exercises. States she finally got diagnosed with fistula 15 years later. Reports she has had multiple colon surgeries with colostomy reversal on 04/26/2022. States she is still having control issues with bowels. States she leaks stool when the stool is loose. States she is aware that it is happening most of the time. States occasionally she will leak stool when she exercises but is unaware that it is happening. States the leakage is liquid like. States she leaks urine with sneeze, cough, hard laughing, and running/jumping. Prior Diagnostic Tests and Results: see EMR Other Treatment for this Diagnosis: Previous Physical Therapy for this Diagnosis: yes If yes, when: 2 sessions before moving Response to prior therapy treatment: only seen 2 sessions Changes/reason for returning to therapy: moved and needed to find a new pelvic floor PT Pelvic floor pain: Current Pain Ratin/10 At Best Pain Ratin/10 At Worst Pain Ratin/10 Exacerbating Factors: during sexual activity-deep inside the pelvis Relieving Factors: does not have pain in the pelvic floor when she is not being sexually active Bowel Movement Pattern Frequency of Bowel Movement: 2-3 x per day Urge: overwhelming urge daily Consistency of Stool: Type 4-5 on a normal day; Type 7 when having a flare up Constipation: yes, occasionally Intensity of bearing down/strain (scale: ???0?? = none, ???10?? = hold breath, red face, lightheaded): 0/10 with diarrhea; typically 1-3/10 straining; Will reach 6-7/10 with a Type 5-6 stool at times Finger Manipulation: yes, occasionally pushes on peroneal body 1-2 x per month Incomplete Feeling: yes, frequently Laxative/Stool softener/fiber: Metamucil (2 tablespoon) in AM (sometimes forget) Other: States her bowel issues are a great bother to her. Fecal Incontinence Frequency: depends on consistency of stool; leaks when stool is diarrhea and can hold it in with solid stool Underpants soilin weeks ago when passing gas Consistency of stools: diarrhea Activity: passing gas; exercise Underpants staining: not an issue Anti-diarrheal medication: 2 Imodium everyday Protection use: thin pad daily Gas Incontinence: frequently Urinary Pattern Frequency- Day: up to 7 x Frequency - Night: 0-1 x Urge: normal Urinary Incontinence: yes Stress Urinary Incontinence: yes, about a table spoon; a few times per week Associated with: cough, sneeze, hard laugh, jumping, running Urgency Urinary Incontinence: no Protection Use: yes, daily Other: States she has in occasional incomplete bladder emptying and occasionally strains to empty her bladder. Reports her urine leakage bothers her social life slightly. Reports overall her bladder issues bother her moderately. Sexual Activity Activity: yes Complaints: leaks stool occasionally during intercourse Diet/Fluid Intake Special Diet: limits intake of ice kelly lettuce; does not eat custard type ice cream Fiber Intake: unknown Fluids: water (8 glasses); coffee; Diet Soda Formal Exercise: gym-3 x per week ([employer]) Function Current Functional Deficits: States she is able to do her daily activities but has to bring a change of clothes with her in case she has a major bowel accident. Reports her bowel incontinence affectsher greatly and urine leakage affects her moderately. 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 Standing Posture: Weightbearing R>L LE and through whole foot; R innominate elevated Supine Posture: L innominate up slip Functional Mobility/Gait: WFL Lumbar AROM (in standing) Flexion WFL Extension WFL Right Sidebend WFL; tightness felt in back Left Sidebend WFL; tightness felt in back Palpation Myofascial restrictions Pelvic Innominate Rotation (in standing) Left NT Right NT Palpation NT Hip Hiking Right: tightness felt, less AROM LEFT: WFL Thoracic Rotation (in sitting) Left NT Right NT Palpation NT Lower Extremity AROM Right Left Hip flexion NT deg. NT deg. Hip extension NT deg. NT deg. Hip abduction NT deg. NT deg. Hip internal rotation NT deg. NT deg. Hip external rotation NT deg. NT deg. Strength Hip flexion NT/5 NT/5 Hip extension NT/5 NT/5 Hip Abduction NT/5 NT/5 Hip internal rotation NT/5 NT/5 Hip external rotation NT/5 NT/5 Special Tests Slump Test NT due to time Spring Test positive L Abdomen Pain: NT Scars: NT Lower Abdominal Strength: NT Diastasis Rectus: Above Umbilicus: NT At Umbilicus: NT Below Umbilicus: NT Diaphragm: NT Pelvic Floor External Evaluation *NT due to time Pelvic Floor Internal Evaluation *NT due to time Treatment Patient practiced and was educated in core and pelvic stabilization exercises, techniques, and modalities. Treatment Performed on This Visit: Manual Therapy: MET and PRRT to correct L innominate up slip Therapeutic Procedure/Exercise: pelvic stability exericse Modalities: none HEP given: yes, see exercise log Patient education: water/Bowel/Bladder Tips; good body mechanics Cert dates: From 04/10/23 to 07/03/23 Progress Note: 05/22/23 Date Date Date Date Date 04/10/23 Visit Number 1 ADDITIONAL HEP SHEETS ISSUED yes Bowel/Water/Bladder Tips Issued for home review Manual Therapy *MET (muscle energy technique) *PRRT (primal reflex release technique) *soft tissue mobilization *myofascial release MET and PRRT to correct L innominate up slip. gentle leg pull then quick upward movement to relax gluts *Patient held L leg to mat while therapist lifted up 5 x *R SLR with percussion soft tissue technique to R quad *hook lying:resisted R hip abd/L hip add: 1 x, hold 10 sec. *legs straight and resisted R hip ext rot with gentle L thigh distraction: 1 x, 10 sec. *resisted hip abduction in 5 x *resisted hip add 5 x *level pelvis and improved L spring test after manual therapy techniques Good Body Mechanics Education completed Pelvic Stability Exercise Hook lying Hip Abd on belt and hip add on ball: 10 x, cues HEP 10 x daily Progress Note/Re-Cert Assessment: Patient presents with faulty posture, weak core musculature, connective tissue restrictions, and pelvic floor muscle dysfunction which impact quality of life. Level pelvis after manual therapy today. Patient will benefit from skilled pelvic floor physical therapy to address above dysfunctions and quality of life concerns. Treatment will be adjusted as deemed necessary by PT. Rehab potential: fair Patient participated in establishing goals. Goals Short Term Goals: (to be met by 05/22/23) 1. Demonstrate improved ability to relax the pelvic floor muscles from baseline. 2. Pelvic floor muscle tone during defecation simulation to decrease. 3. Decrease straining to 5/10 or less 50% of the time. 4. Exhibit good knowledge of pelvic anatomy and self-help awareness. 5. Exhibit healthy bowel habits 50% of the time. 6. To maintain a level pelvis to promote an improved pelvic floor muscle position. Cloth Bin Packer Goals: (to be met by 07/03/23) 1. Independent with progressive home exercise program, 2. Decrease straining to 3/10 or less 75% of the time. 3. Exhibit healthy bowel habits 75% of the time. 4. Decrease pain complaints from baseline in order to work, complete all ADLs and recreational tasks. 5. Demonstrate an increase in pelvic floor muscle contraction from baseline. 6. Demonstrate an increase in pelvic floor endurance from baseline. 7. Improve the score on [place] Pelvic Floor Questionnaire Bowel Section by 3 points. (Initial Score on 04/10/23 was 11/36). Plan: Patient will benefit from skilled therapy services 1 time per week for 12 weeks for therapeutic exercise, strengthening exercises for core and pelvic floor muscles, neuromuscular re-education, manualtherapy, biofeedback and/or electrical stimulation for pelvic floor muscle strengthening/coordination, electrical stimulation for pain relief in core musculature, balloon equipment therapy for sensation evacuation retraining techniques for bowels, dilator and/or balloon equipment for pelvic floor stretching/relaxation. INITIAL CERTIFICATION DATES: From 04/10/23 to 07/03/2023 (12 weeks) Patient educated and acknowledged understanding of therapy diagnosis, prognosis, pain relief instructions, precautions, risks, benefits and agree with the treatment plan and goals. Patient will be discharged from therapy upon completion of goals, physician order, or when therapist determines patient is appropriate for discharge from skilled therapy services. Viridiana Yu, PT [facility] ATTENTION PHYSICIAN If you are unable to electronically sign this document, please print this document and sign below to certify this plan of care/treatment plan. By signing this document, I certify that I have reviewedthis plan of care and support the treatment. Please fax back to . Thank you. Provider Signature: Date: documented in this encounter Plan of Treatment Scheduled Referrals Name Type Priority Associated Diagnoses Orde r Schedule Ambulatory referral order to Physical Therapy - Outpatient Referral Routine Anal sphincter incontinence Ordered: 02/22/2023 documented as of this encounter Visit Diagnoses Diagnosis Anal sphincter incontinence- Primary Pelvic floor dysfunction documented in this encounter Care Teams Wholesale Account Executive Relationship Specialty Start Date End Date Ton Hernandez NP [address] [place] [phone] PCP - General Nurse Practitioner 03/08/23 Crispin Shen MD Surgeon Colon and Rectal Surgery 09/09/20 Kemi Schmitz [address] [place] [address] Surgeon Colon and Rectal Surgery 05/16/21 Maria C Zacarias MD [address] [place] [address] Aoc Director Combat Operations Officer Gastroenterology 04/02/23 documented as of this encounter
--- OUTSIDE RECORDS SUMMARY | 2024-08-18 09:53 | XMS_ITS | Encounter Summary ---
Author Organization [facility] Healthcare Address [address] [place] [address] Care Team Providers Care Meat Department Manager Name Role Phone Crispin Shen MD Unavailable [phone] Kemi Schmitz Unavailable Ton Hernandez NP Primary Care Provider [phone] Maria C Zacarias MD Unavailable [phone] Encounter Details Date Type Department Care Team (Late st Contact Info) Description 05/31/2023 Telephone [facility] [address] [address] Chen Darnell, RN Social History Tobacco Use Types Packs/Day Years [...] week 11/24/2020 How often do you attend [facility] or baptism services? 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 valACYclovir (VALTREX) 500 mg tablet Take 1 tablet (500 mg total) by mouth 3 (three) times a day 10/02/2022 prednisoLONE acetate (PRED FORTE) 1 % ophthalmic suspension 03/29/2023 09/11/2023 ofloxacin (OCUFLOX) 0.3 % ophthalmic solution 02/23/2023 09/11/2023 metroNIDAZOLE (FLAGYL) 250 mg tablet 05/25/2023 09/11/2023 loperamide (IMODIUM A-D) 2 mg tablet Take 1 tablet (2 mg total) by mouth 4 (four) times a day as needed 09/11/2023 Prolensa 0.07 % drops 02/23/2023 09/11/2023 biotin 1,000 mcg tablet,chewable Take 1 capsule by mouth daily 09/11/2023 omega 8-vep-qsi-fish oil (Fish OiL) 1,000 mg (120 mg-180 mg) capsule Take 1 capsule (1,000 mg total) by mouth nightly 09/11/2023 added in this encounter Care Teams Meat Department Manager Relationship Specialty Start Date End Date Ton Hernandez NP [address] [place] [phone] PCP - General Nurse Practitioner 03/08/23 Crispin Shen MD Surgeon Colon and Rectal Surgery 09/09/20 Kemi Schmitz [address] [place] [address] Surgeon Colon and Rectal Surgery 05/16/21 Maria C Zacarias MD [address] [place] [address] Instructional Media Services Technician Gastroenterology 04/02/23 documented as of this encounter
--- OUTSIDE RECORDS SUMMARY | 2024-08-18 09:53 | XMS_ITS | Encounter Summary ---
Author Organization [facility] Address [address] [place] [address] Phone Care Team Providers Care Psychology Technician Name Role Phone Crispin Shen MD Unavailable [phone] Kemi Schmitz Unavailable Ton Hernandez NP Primary Care Provider [phone] Maria C Zacarias MD Unavailable [phone] Reason for Referral * Consultation (Routine) - Authorized Specialty Diagnoses / Procedures Referred By Contac t Referred To Contact Physical Therapy Diagnoses Dyssynergic defecation Vivian Thornton MD [address] [place] [address] Phone: tel: fax: Lilly Damon DPBeatriz [address] [place] [address] Phone: tel: fax: Referral ID Status Reason Start Date Expiration Date Visits Requested Visits Authorized [id number] Authorized Evaluate and Treat 07/24/2023 08/22/2024 24 24 Question Answer PTRFR PT Evaluate and Treat Reason for Visit dyssynergic defecation Therapy options discussed with patient? Yes Location provided for therapy services is: Patient requested/Patient preferred Please select the performing region: [facility] (All Locations) [[id number]] To provider: LILLY DAMON [[id number]] # of visits: 24 MACHINIST 2ND SHIFT Encounter Details Date Type Department Care Team (Late st Contact Info) Description 07/24/2023 Orders Only [facility] [address] [facility] [address] [place] [address] [place] [address] Lauren Horvath LPN Dyssynergic defecation (Primary Dx) Social History Tobacco [...] often do you attend chur ch or yarsani services? 1 to 4 times per year 11/24/2020 Do you belong to any clubs o r organizations such as sabianist groups, unions, fraternal or athletic groups, or [...] you are drinking? 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 Gender Identity Female 11/16/2020 2:58 PM CDT Sexual Orientation Straight 11/16/2020 2: 58 PM CDT documented as of this encounter Plan of Treatment Scheduled Referrals Name Type Priority Associated Diagnoses Order Schedule Ambulatory referral order to Physical Therapy - Outpatient Referral Routine Dyssynergic defecation Expected: 07/24/2023 (Approximate), Expires: 07/24/2024 documented as of this encounter Visit Diagnoses Diagnosis Dyssynergic defecation- Primary documented in this encounter Care Teams Psychology Technician Relationship Specialty Start Date End Date Ton Hernandez NP [address] [place] [phone] PCP - General Nurse Practitioner 03/08/23 Crispin Shen MD Surgeon Colon and Rectal Surgery 09/09/20 Kemi Schmitz [address] [place] [address] Surgeon Colon and Rectal Surgery 05/16/21 Maria C Zacarias MD [address] [place] [address] Manager Android Gastroenterology 04/02/23 documented as of this encounter
--- OUTSIDE RECORDS SUMMARY | 2024-08-18 09:53 | XMS_ITS | Encounter Summary ---
Author Organization [facility] Address [address] [facility] [address] [place] [address] Phone Care Team Providers Care Eating Disorder Psychologist Name Role Phone Crispin Shen MD Unavailable [phone] Kemi Schmitz Unavailable No, Physician Primary Care Provider [phone] Reason for Referral * Physical Therapy (Routine) - Closed Specialty Diagnoses / Procedures Referred By Cecy gage Referred To Contact Physical Therapy Diagnoses Anal sphincter incontinence Crispin Shen MD [address] [facility] [phone] [place] [address] Phone: tel: fax: [facility] OP Physical Therapy [address] [place] [address] Phone: tel: fax: Referral ID Status Reason Start Date Expiration Date V isits Requested Visits Authorized [id number] Closed Specialty Services Required 04/10/2023 08/19/2023 12 20 Question Answer PTRFR PT Evaluate and Treat Reason for Visit Pelvic floor PT Therapy options discussed with patient? Yes Location provided for therapy services is: Patient requested/Patient preferred Please select the performing region: [facility] [[id number]] Please select the performing department: [facility] OP PT [[id number]] # of visits: 24 * Consultation (Routine) - Closed Specialty Diagnoses / Procedures Referred By Contac t Referred To Contact Gastroenterology Diagnoses Irritable bowel syndrome, unspecified type Crispin Shen MD [address] [facility] [phone] [place] [address] Phone: tel: fax: [facility] (All Locations) Referral ID Status Reason Start Date Expiration Date V isits Requested Visits Authorized [id number] Closed Specialty Services Required 02/15/2023 03/16/2024 12 12 Question Answer Please select the performing region: [facility] (All Locations) [[id number]] # of visits: 1 Reason for Visit * Consultation (Routine) - Closed Specialty Diagnoses / Procedures Referred By Contac t Referred To Contact Surgery / Colon and Rectal Surgery Diagnoses Rectovaginal fistula Anal fistula Kaitlyn Bowen MD [address] [place] [address] Phone: tel: fax: Crispin Shen MD [address] [facility] [phone] [place] [address] Phone: tel: fax: Referral ID Status Reason Start Date Expiration Date V isits Requested Visits Authorized [id number] Closed Specialty Services Required 01/04/2023 02/03/2024 12 12 Encounter Details Date Type Department Care Team (Late st Contact Info) Description 02/13/2023 8:45 AM CDT Office Visit [facility] Department of Surgery, Section of Colon and Rectal Surgery [address] 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 Gender Identity Female 11/16/2020 2:58 PM CDT Sexual Orientation Straight 11/16/2020 2: 58 PM CDT documented as of this encounter Last Filed Vital Signs Vital Sign Reading Time Taken Comments Blood Pressure 117/79 02/13/2023 8:45 AM CDT Pulse 58 02/13/2023 8:45 AM CDT Temperature 36.4 ??C (97.5 ??F) 02/13/2023 8:45 AM CD T Respiratory Rate - - Oxygen Saturation 100% 02/13/2023 8:45 AM CDT Inhaled Oxygen Concentration - - Weight 95.7 kg (211 lb) 02/13/2023 8:45 AM CDT Height 177.8 cm (5' 10 ) 02/13/2023 8:45 AM CDT Body Mass Index 30.28 02/13/2023 8:45 AM CDT documented in this encounter Ordered Prescriptions Prescription Sig Dispense Quantity Refills Last Filled Start Date End Date sodium, potassium & mag sulfates (SUPREP BOWEL KIT) 17.5-3.13-1.6 gram recon solnIndications:Eamon wel Evacuation Drink 1 bottle at 6pm the night before procedure. Drink 2nd bottle 4 hours prior to leaving home. 354 mL 05/06/2023 3 documented in this encounter Progress Notes * Crispin Shen MD - 02/13/2023 8:45 AM CDT Established Patient Follow-up Visit Interval History: The patient is a 52 y.o. female with an anal fistula was finally fixed by any episioproctotomy. We reversed her colostomy last fall. She says she has intermittent bouts of abdominal pain and watery diarrhea. Her continence is fine when her stools are normal but when they become liquid, she is having anal incontinence with accidents up to three to 4 times a week. When she has an accident she has gross soilage. She tried physical therapy but moved a during her treatment. She has tried fiber and takes Imodium intermittently. Review of Systems: All other systems negative except as per HPI and scanned media Physical exam: Constellation: No apparent distress. Head: Normocephalic Eyes: Anicteric Ears, mouth and nose: Normal Neurologic: Non-focal motor function Respiratory: Non-labored breathing Skin: No rashes Musculoskeletal: No gross bony deformities On external inspection, her perineal body is normal and well healed. Digital rectal exam reveals a good perineal body. Her squeeze is modest. Assessment and Plan: Ms. Belem Coto is a 52 y.o. female with anal incontinence. I advised her to continue the Imodium. We will set her up for physical therapy closer to her new address. I advised her to try the timing of the fiber in order to have a bowel movement before she goes to work. We are going to arrangefor her to see a regulatory submissions specialist as she has symptoms that are consistent with irritable bowel syndrome. We are also going to set her up for colonoscopy sometime in the not too distant future as she is due for one. Crispin Shen MD 02/13/2023 9:07 AM This note was created in part with the assistance of [employer]Trianz voice recognition software. Duco Polisher variances and error may occur. Not every sentence has been reviewed in its entirety. For questions about the documentation above, please contact Dr. Shen. documented in this encounter Miscellaneous Notes * Addendum Note - Ana M Baig RMA - 02/13/2023 8:45 AM CDTAddended by: ANA M BAIG on: 02/15/2023 10:24 AM Modules accepted: Orders * Addendum Note - Ana M Baig, ANGELINE - 02/13/2023 8:45 AM CDTAddended by: ANA M BAIG on: 02/22/2023 12:07 PM Modules accepted: Orders documented in this encounter Plan of Treatment Scheduled Referrals Name Type Priority Associated Diagnoses Order Schedule Ambulatory referral to Gastroenterology Outpatient Referral Routine Irritable bowel syndrome, unspecified type Expected: 03/01/2023 (Approximate), Expires: 02/16/2024 Ambulatory referral order to Physical Therapy - Outpatient Referral Routine Anal sphincter incontinence Ordered: 02/22/2023 documented as of this encounter Visit Diagnoses Diagnosis Anal sphincter incontinence- Primary Rectovaginal fistula Digestive-genital tract fistula, female Anal fistula Irritable bowel syndrome, unspecified type documented in this encounter Historical Medications * This list may reflect changes made after this encounter. PARoxetine (PAXIL) 10 mg tablet Take 1 tablet (10 mg total) by mouth daily 01/19/2023 05/14/2023 topiramate (TOPAMAX) 50 mg tablet Take 1 tablet (50 mg total) by mouth nightly 01/19/2023 05/14/2023 added in this encounter Orders Outpatient Referral Count Last Ordered Date Fir st Ordered Date AMB REFERRAL TO COLORECTAL SURGERY 1 2022 documented in this encounter Care Teams Eating Disorder Psychologist Relationship Specialty Start Date End Date No, Physician PCP - General 05/22/22 03/07/23 Crispin Shen MD Surgeon Colon and Rectal Surgery 09/09/20 Kemi Schmitz [address] [facility] [place] [address] Surgeon Colon and Rectal Surgery 05/16/21 documented as of this encounter
--- OUTSIDE RECORDS SUMMARY | 2024-08-18 09:53 | XMS_ITS | Encounter Summary ---
Author Organization [facility] Address [address] [place] [address] Phone Care Team Providers Care Nurse Esthetician Name Role Phone Crispin Shen MD Unavailable [phone] Kemi Schmitz Unavailable Ton Hernandez NP Primary Care Provider [phone] Maria C Zacarias MD Unavailable [phone] Reason for Visit * Reason Onset Date Comments Scheduling Appointments 08/06/2023 Encounter Details Date Type Department Care Team (Late st Contact Info) Description 08/06/2023 Telephone [facility] Department of Surgery [address] [facility] 12th [place] [address] [place] [address] Annabelle Stratton CMA Scheduling Appointments Social History Tobacco Use Types Packs/Day Years [...] any clubs o r organizations such as amish groups, unions, fraternal or athletic groups, or [...] on file 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 She also has new pt paperwork and her desk from her pcp with images. Annabelle MARCUS CNA Scenario Writer to Dr. Ward ING AND MOVING ESTIMATOR documented in this encounter Plan of Treatment Not on file documented as of this encounter Visit Diagnoses Not on filedocumented in this encounter Care Teams Nurse Esthetician Relationship Specialty Start Date End Date Ton Hernandez NP [address] [place] [address] PCP - General Nurse Practitioner 03/08/23 Crispin Shen MD Surgeon Colon and Rectal Surgery 09/09/20 Kemi Schmitz [address] [place] [address] Surgeon Colon and Rectal Surgery 05/16/21 Maria C Zacarias MD [address] [place] [address] Probation Counselor Gastroenterology 04/02/23 documented as of this encounter
--- OUTSIDE RECORDS SUMMARY | 2024-08-18 09:53 | XMS_ITS | Encounter Summary ---
Author Organization [facility] Address [address] [place] [address] Phone Care Team Providers Care Infectious Waste Technician Name Role Phone Crispin Shen MD Unavailable [phone] Kemi Schmitz Unavailable Ton Hernandez NP Primary Care Provider [phone] Maria C Zacarias MD Unavailable [phone] Encounter Details Date Type Department Care Team (Late st Contact Info) Description 04/18/2023 Telephone [facility] Gastroenterology [address] [facility] 12th [place] [address] Radha Siu CMA Social History Tobacco Use Types Packs/Day [...] often do you attend chur ch or gnosticist services? 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 Thornton. documented in this encounter Plan of Treatment Not on file documented as of this encounter Visit Diagnoses Not on filedocumented in this encounter Care Teams Infectious Waste Technician Relationship Specialty Start Date End Date Ton Hernandez NP [address] [place] [phone] PCP - General Nurse Practitioner 03/08/23 Crispin Shen MD Surgeon Colon and Rectal Surgery 09/09/20 Kemi Schmitz [address] [place] [address] Surgeon Colon and Rectal Surgery 05/16/21 Maria C Zacarias MD [address] [place] [address] Yard Hand Gastroenterology 04/02/23 documented as of this encounter
--- OUTSIDE RECORDS SUMMARY | 2024-08-18 09:53 | XMS_ITS | Encounter Summary ---
Author Organization [facility] Address [address] [place] [address] Phone Care Team Providers Care Content Development Manager Name Role Phone Crispin Shen MD Unavailable [phone] Kemi Schmitz Unavailable Ton Hernandez NP Primary Care Provider [phone] Maria C Zacarias MD Unavailable [phone] Reason for Visit * Reason Onset Date Comments Medical Records Request 07/04/2023 Referral for Hernia care walked to [facility] Encounter Details Date Type Department Care Team (Late st Contact Info) Description 07/04/2023 Telephone [facility] Department of Surgery, Section of Colon and Rectal Surgery [address] [facility] 12th [address], [place] [address] Mary Ann Del Rosario BS Medical Records Request (Referral for Hernia care walked to [facility]) Social History Tobacco Use Types Packs/Day Years [...] How often do you attend chur or episcopalian services? 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 Gender Identity Female 11/16/2020 2:58 PM CDT Sexual Orientation Straight 11/16/2020 2: 58 PM CDT documented as of this encounter Miscellaneous Notes * Telephone Encounter - Mary Ann Del Rosario - 07/04/2023 3:25 PM HAND COPER Referral for Hernia care walked to [facility] COPER documented in this encounter Plan of Treatment Not on file documented as of this encounter Visit Diagnoses Not on filedocumented in this encounter Care Teams Content Development Manager Relationship Specialty Start Date End Date Ton Hernandez NP [address] [place] [address] PCP - General Nurse Practitioner 03/08/23 Crispin Shen MD Surgeon Colon and Rectal Surgery 09/09/20 Kemi Schmitz [address] [place] [address] Surgeon Colon and Rectal Surgery 05/16/21 Maria C Zacarias MD [address] [place] [address] Rivet Passer Gastroenterology 04/02/23 documented as of this encounter
--- OUTSIDE RECORDS SUMMARY | 2024-08-18 09:53 | XMS_ITS | Encounter Summary ---
Author Organization [facility] Address [address] [place] [address] Phone Care Team Providers Care Records Analyst Name Role Phone Crispin Shen MD Unavailable Kemi Schmitz Unavailable Ton Hernandez NP Primary Care Provider [phone] Maria C Zacarias MD Unavailable [phone] Reason for Referral * Gastroenterology (Routine) - Closed Specialty Diagnoses / Procedures Referred By Contac t Referred To Contact Diagnoses Incontinence of feces, unspecified fecal incontinence type Dyssynergic defecation Procedures High Resolution Anorectal Motility (Rectal Sensation/Tone) with Balloon Expulsion - Vivian Thornton MD [address] [place] [address] Phone: tel: fax: [address] [address] Referral ID Status Reason Start Date Expiration Date Visits Re quested Visits Authorized [id number] Closed 05/25/2023 06/23/2024 1 1 Encounter Details Date Type Department Care Team (Late st Contact Info) Description 05/25/2023 Orders Only [facility] Gastroenterology [address] [facility] 12th [place] [address] Lauren Horvath LPN Chronic constipation (Primary Dx); Incontinence of feces, unspecified fecal incontinence type; Dyssynergic defecation Social History Tobacco Use Types Packs/Day Years [...] week 11/24/2020 How often do you attend [facility] or voodoo services? 1 to 4 times per year [...] you are drinking? 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 Gender Identity Female 11/16/2020 2:58 PM CDT Sexual Orientation Straight 11/16/2020 2: 58 PM CDT documented as of this encounter Plan of Treatment Not on file documented as of this encounter Results * High Resolution Anorectal Motility (Rectal Sensation/Tone) with Balloon Expulsion - (07/19/2023) Anatomical Region Laterality Modality Other Vivian Thornton MD GI LAB PROCEDURE ORDERABLES Fi nal Result documented in this encounter Visit Diagnoses Diagnosis Chronic constipation- Primary Unspecified constipation Incontinence of feces, unspecified fecal incontinence type Dyssynergic defecation documented in this encounter Care Teams Records Analyst Relationship Specialty Start Date End Date Ton Hernandez NP [address] [place] [address] PCP - General Nurse Practitioner 03/08/23 Crispin Shen MD Surgeon Colon and Rectal Surgery 09/09/20 Kemi Schmitz [address] [place] [address] Surgeon Colon and Rectal Surgery 05/16/21 Maria C Zacarias MD [address] [place] [address] Trimmer Loader Gastroenterology 04/02/23 documented as of this encounter
--- OUTSIDE RECORDS SUMMARY | 2024-08-18 09:53 | XMS_ITS | Encounter Summary ---
Author Organization [facility] Address [address] [place] [address] Phone Care Team Providers Care Water Taxi Boat Mate Name Role Phone Crispin Shen MD Unavailable [phone] Kemi Schmitz Unavailable Ton Hernandez NP Primary Care Provider [phone] Maria C Zacarias MD Unavailable [phone] Encounter Details Date Type Department Care Team (Late st Contact Info) Description 06/27/2023 Orders Only [facility] Gastroenterology [address] [facility] 12th [place] [address] [place] [address] Lauren Horvath LPN Social History Tobacco Use Types Packs/Day Years [...] often do you attend chur ch or mandaeism services? 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 Gender Identity Female 11/16/2020 2:58 PM CDT Sexual Orientation Straight 11/16/2020 2: 58 PM CDT documented as of this encounter Plan of Treatment Not on file documented as of this encounter Visit Diagnoses Not on filedocumented in this encounter Care Teams Water Taxi Boat Mate Relationship Specialty Start Date End Date Ton Hernandez NP [address] [place] [phone] PCP - General Nurse Practitioner 03/08/23 Crispin Shen MD Surgeon Colon and Rectal Surgery 09/09/20 Kemi Schmitz [address] [place] [address] Surgeon Colon and Rectal Surgery 05/16/21 Maria C Zacarias MD [address] [place] [address] Toilet Products Molder Gastroenterology 04/02/23 documented as of this encounter
--- OUTSIDE RECORDS SUMMARY | 2024-08-18 09:53 | XMS_ITS | Encounter Summary ---
Author Organization [facility] Address [address] [place] [address] Phone Care Team Providers Care Electrical Products Engineer Name Role Phone Crispin Shen MD Unavailable [phone] Kemi Schmitz Unavailable Ton Hernandez NP Primary Care Provider [phone] Maria C Zacarias MD Unavailable [phone] Encounter Details Date Type Department Care Team (Late st Contact Info) Description 06/29/2023 Orders Only [facility] Gastroenterology [address] 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 MUSIC ADAPTER Gender Identity Female 11/16/2020 2:58 PM CDT Sexual Orientation Straight 11/16/2020 2: 58 PM CDT documented as of this encounter Ordered Prescriptions Prescription Sig Dispense Quantity Refills Last Filled Start Date End Date linaCLOtide (LINZESS) 145 mcg capsuleIndications :chronic idiopathic constipation Take 1 capsule (145 mcg total) by mouth daily 30 capsule 2 06/29/2023 documented in this encounter Plan of Treatment Not on file documented as of this encounter Visit Diagnoses Diagnosis Constipation, unspecified constipation type- Primary documented in this encounter Care Teams Electrical Products Engineer Relationship Specialty Start Date End Date Ton Hernandez NP [address] [place] [phone] PCP - General Nurse Practitioner 03/08/23 Crispin Shen MD Surgeon Colon and Rectal Surgery 09/09/20 Kemi Schmitz [address] [place] [address] Surgeon Colon and Rectal Surgery 05/16/21 Maria C Zacarias MD [address] [place] [address] Customer Agent Gastroenterology 04/02/23 documented as of this encounter
--- OUTSIDE RECORDS SUMMARY | 2024-08-18 09:53 | XMS_ITS | Encounter Summary ---
Author Organization [facility] Address [address] [place] [address] Phone Care Team Providers Care Tool And Cutter Grinder Name Role Phone Crispin Shen MD Unavailable [phone] Kemi Schmitz Unavailable Ton Hernandez NP Primary Care Provider [phone] Maria C Zacarias MD Unavailable [phone] Encounter Details Date Type Department Care Team (Late st Contact Info) Description 06/01/2023 Telephone [facility] Gastroenterology [address] [facility] 12th [place] [address] [place] [address] Lauren Horvath LPN Social History [...] often do you attend chur ch or buddhism services? 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 Noted ARM w/BET scheduled. Pt verbalized understanding. documented in this encounter Plan of Treatment Not on file documented as of this encounter Visit Diagnoses Not on filedocumented in this encounter Care Teams Tool And Cutter Grinder Relationship Specialty Start Date End Date Ton Hernandez NP [address] [place] [phone] PCP - General Nurse Practitioner 03/08/23 Crispin Shen MD Surgeon Colon and Rectal Surgery 09/09/20 Kemi Schmitz [address] [place] [address] Surgeon Colon and Rectal Surgery 05/16/21 Maria C Zacarias MD [address] [place] [address] Sleeve Bottom Feller Gastroenterology 04/02/23 documented as of this encounter
--- OUTSIDE RECORDS SUMMARY | 2024-08-18 09:53 | XMS_ITS | Encounter Summary ---
Author Organization [facility] Healthcare Address [address] [place] [address] Care Team Providers Care Dowel Sander Operator Name Role Phone Crispin Shen MD Unavailable [phone] Kemi Schmitz Unavailable Ton Hernandez NP Primary Care Provider [phone] Maria C Zacarias MD Unavailable [phone] Reason for Visit * Reason Comments Sore Throat Encounter Details Date Type Department Care Team (Late st Contact Info) Description 06/15/2023 8:06 PM CDT - 06/15/2023 10:46 PM CDT Emergency [address] [address] Laryngitis (Primary Dx); Subglottic inflammation Discharge Disposition: Discharge to a short term hospital for IP Social History Tobacco Use Types Packs/Day Years [...] often do you attend chur ch or religion services? 1 to 4 times per year 11/24/2020 Do you belong to any clubs o r organizations such as buddhist groups, unions, fraternal or athletic groups, or [...] on file Legal Sex Female 9:36 AM [employer] Gender Identity Female 11/16/2020 2:58 PM CDT Sexual Orientation Straight 11/16/2020 2: 58 PM CDT documented as of this encounter Last Filed Vital Signs Vital Sign Reading Time Taken Comments Blood Pressure 128/88 06/15/2023 10:30 PM CDT Pulse 90 06/15/2023 10:30 PM CDT Temperature 36.7 ??C (98.1 ??F) 06/15/2023 3:34 PM CD T Respiratory Rate 16 06/15/2023 10:30 PM CDT Oxygen Saturation 96% 06/15/2023 10:30 PM CDT Inhaled Oxygen Concentration - - Weight 90.7 kg (200 lb) 06/15/2023 3:34 PM CDT Height 177.8 cm (5' 10 ) 06/15/2023 3:34 PM CDT Body Mass Index 28.7 06/15/2023 3:34 PM CDT documented in this encounter Medications at Time [...] 0.3 % ophthalmic solution 02/23/2023 09/11/2023 omega 7-zdn-uos-fish oil (Fish OiL) 1,000 mg (120 mg-180 [...] Departure Means Destination Comment s Discharge to a short term hospital for [facility] documented in this encounter ED Notes * Jeremy Walters PA - 06/15/2023 8:35 PM CDT CHIEF COMPLAINT: Chief Complaint Patient presents with Sore Throat HPI 8:35 PM Belem Coto is a 52 y.o. female presenting to the ED with c/c of globus since last night. Pt this attempting to swallow 5 pills all at once while she was driving in the pills got stuck in her throat. She pulled over and was choking on the pills, attempting to expel them. She is unableto do so and thinks some of them are still stuck in her throat currently. She has had pain in the neck with swallowing ever since. Does deny shortness of breath. No fever, vomiting, diarrhea, poor p.o. intake. Does endorse feeling incredibly anxious and is asking for her prescription of p.o. Ativanhere. She states the pills were a digestive enzyme of some sort. History provided by patient PCP: Ton Hernandez NP PAST MEDICAL HISTORY Past Medical History: Diagnosis Date Anxiety Depression Obesity PAST SURGICAL HISTORY Past Surgical History: Procedure Laterality Date ABDOMINOPLASTY [...] anesthesia, anal fistula plug treatment of fistula. FAMILY HISTORY Family History Problem Relation Age of Onset Thyroid cancer Mother Anesthesia problems Neg Hx MEDICATIONS GIVEN IN THE ED Medications methylPREDNISolone sodium succinate (SOLU-medrol) preservative free injection 124 mg (has no administration in time range) LORazepam (ATIVAN) tablet 0.5 mg (has no administration in time range) ioversoL (OPTIRAY 350) syringe 100 mL (100 mL intravenous Contrast Given 06/15/23 1712) CURRENT HOME MEDICATIONS Current Facility-Administered Medications: LORazepam (ATIVAN) tablet 0.5 mg, 0.5 mg, oral, Once, Jeremy Walters PA methylPREDNISolone sodium succinate (SOLU-medrol) preservative free injection 124 mg, 124 mg, intravenous, Once, Jeremy Walters PA Current Outpatient Medications: ascorbic acid (VITAMIN C) 1,000 mg tablet, Take 1 tablet (1,000 mg total) by mouth nightly, Disp: ,Rfl: atomoxetine (STRATTERA) 25 mg capsule, 2 capsules (50 mg total) daily, Disp: , Rfl: biotin 1,000 mcg tablet,chewable, Take 1 capsule by mouth daily, Disp: , Rfl: cholecalciferol (VITAMIN D-3) 2000 unit capsule, Take 1 capsule (2,000 Units total) by mouth nightly, Disp: , Rfl: loperamide (IMODIUM A-D) 2 mg tablet, Take 1 tablet (2 mg total) by mouth 4 (four) times a day as needed, Disp: , Rfl: lysine 1,000 mg tablet, Take 1,000 mg by mouth nightly , Disp: , Rfl: metroNIDAZOLE (FLAGYL) 250 mg tablet, , Disp: , Rfl: multivitamin capsule, Take 1 capsule by mouth nightly, Disp: , Rfl: ofloxacin (OCUFLOX) 0.3 % ophthalmic solution, , Disp: , Rfl: omega 9-oid-bwm-fish oil (Fish OiL) 1,000 mg (120 mg-180 mg) capsule, Take 1 capsule (1,000 mg total) by mouth nightly, Disp: , Rfl: omega-3 fatty acids-fish oil 300-1,000 mg capsule, Take 1 capsule (1 g total) by mouth nightly, Disp: , Rfl: prednisoLONE acetate (PRED FORTE) 1 % ophthalmic suspension, , Disp: , Rfl: Prolensa 0.07 % drops, , Disp: , Rfl: turmeric root extract 500 mg capsule, Take 500 mg by mouth nightly , Disp: , Rfl: valACYclovir (VALTREX) 500 mg tablet, Take 1 tablet (500 mg total) by mouth 3 (three) times a day, Disp: , Rfl: zinc 50 mg tablet, Take 50 mg by mouth nightly , Disp: , Rfl: Facility-Administered Medications Ordered in Other Encounters: diatrizoate meglumine-diatrizoate sodium (GASTROGRAFIN/-GASTROVIEW) 66-10 % solution 60 mL, 60 mL, oral, Once in imaging, Crispin Shen MD ALLERGIES No Known Allergies SOCIAL HISTORY Social History Tobacco Use Smoking status: Never Smokeless tobacco: Never Substance and Sexual Activity Drug use: Never Sexual activity: Defer Alcohol Use: Not At Risk (05/14/2023) AUDIT-C Frequency of Alcohol Consumption: Never Average Number of Drinks: Patient does not drink Frequency of Binge Drinking: Never PHYSICAL EXAM TRIAGE VITAL SIGNS: ED Triage Vitals [06/15/23 1534] Temp Pulse Resp BP SpO2 36.7 ??C (98.1 ??F) 111 20 134/80 97 % Temp src Heart Rate Source Patient Position BP Location FiO2 (%) Oral Pulse Oximetry Sitting Right arm -- Height Height Method Weight Weight Method 1.778 m (5' 10 ) Stated 90.7 kg (200 lb) Stated Physical Exam Vitals and nursing note reviewed. Constitutional: General: She is not in acute distress. Appearance: Normal appearance. She is not ill-appearing or toxic-appearing. HENT: Head: Normocephalic and atraumatic. Right Ear: External ear normal. Left Ear: External ear normal. Nose: Nose normal. Mouth/Throat: Mouth: Mucous membranes are moist. Pharynx: No oropharyngeal exudate or posterior oropharyngeal erythema. Tonsils: No tonsillar exudate or tonsillar abscesses. Eyes: Extraocular Movements: Extraocular movements intact. Pupils: Pupils are equal, round, and reactive to light. Neck: Thyroid: No thyroid mass, thyromegaly or thyroid tenderness. Comments: Speaking in full sentences No point tenderness of the neck Full range of motion of the neck Voice hoarseness but no stridor Cardiovascular: Rate and Rhythm: Normal rate and regular rhythm. Heart sounds: Normal heart sounds. No murmur heard. No friction rub. No gallop. Pulmonary: Effort: Pulmonary effort is normal. Breath sounds: Normal breath sounds. Abdominal: General: Bowel sounds are normal. There is no distension. Palpations: Abdomen is soft. There is no mass. Tenderness: There is no abdominal tenderness. There is no guarding. Musculoskeletal: General: No deformity. Normal range of motion. Cervical back: Full passive range of motion without pain, normal range of motion and neck supple. No edema, erythema or rigidity. No pain with movement. Normal range of motion. Lymphadenopathy: Cervical: No cervical adenopathy. Skin: General: Skin is warm and dry. Capillary Refill: Capillary refill takes less than 2 seconds. Neurological: General: No focal deficit present. Mental Status: She is alert and oriented to person, place, and time. Psychiatric: Mood and Affect: Mood normal. LABS Labs Reviewed CBC WITH AUTO DIFFERENTIAL - Abnormal Result Value WBC 10.9 (*) Hgb 13.8 Hct 41.6 Plt 253 MPV 10.7 RBC 4.54 MCV 91.6 MCH 30.4 MCHC 33.2 RDW CV 13.0 RDW SD 43.8 NRBC abs 0.00 DIFFERENTIAL AUTO - Abnormal Neutrophil abs 8.5 (*) Imm gran abs 0.0 Lymphocyte abs 1.8 Monocyte abs 0.5 Eosinophil abs 0.1 Basophil abs 0.1 Neutrophil pct 77.3 Imm gran pct 0.3 Lymphocyte pct 16.4 Monocyte pct 4.8 Eosinophil pct 0.7 Basophil pct 0.5 COMPREHENSIVE METABOLIC PANEL Sodium 140 Potassium, pl 3.8 Chloride 104 CO2 28 Anion gap 8 BUN 7 Creatinine 0.60 Glucose 157 Calcium 9.2 Bilirubin, total 0.5 Protein, pl 7.2 Albumin 4.2 Alk phos 60 ALT 18 AST 16 EGFR eGFR 108 POCT CREATININE FOR CONTRAST EVALUATION Creatinine POC 0.70 POCT CREATININE FOR CONTRAST EVALUATION RADIOLOGY CT Neck Soft Tissue W Contrast Result Date: 06/15/2023 Narrative: EXAM DESCRIPTION: CT SOFT TISSUE NECK W CONTRAST REASON FOR STUDY: FB sensation Pt c/o sore throat. PT reports trying to take 5 pills at one time last night and choking on them. Pt reportsbeing to get one out. Pt c/o difficulty swallowing and hoarseness. Pt reports feeling like she still has the pills stuck. Pt reports going to a different ED last night. PT reports having a throat andchest x-ray done. Pt has audible inspiratory wheezing Surg Hx: Ablation, No surgery to neck TECHNIQUE: Post IV contrast scanning from skull base through lung apices. Reconstructed MPR images reviewed. All images stored on PACS. Automated exposure control was used as a dose optimization technique for this examination. CONTRAST TYPE/DOSE: 100mL of IOVERSOL 350 MG IODINE/ML INTRAVENOUS SYRINGE injected COMPARISON: None available FINDINGS: Subcutaneous SOFT TISSUE: No mass, edema or inflammatory change. ORAL CAVITY/FLOOR OF MOUTH, PHARYNX, LARYNX, HYPOPHARYNX: There is soft tissue thickening/edema within the glottic and supraglottic larynx resulting in marked narrowing of the airway along an ami roximately 10 mm segment at this region with partial effacement of the left piriformis sinus which could reflect acute laryngitis. The epiglottis is normal. The valleculae are unremarkable. No radiodense foreign bodies within the imaged airway. LYMPHADENOPATHY: No adenopathy. MAJOR SALIVARY GLANDS:No solid or cystic masses. No inflammatory changes. THYROID: Normal size. Hypoattenuating nodules in both thyroid lobes are present measuring up to 7 mm in the right thyroid lobe. VASCULATURE: No apparent critical stenosis or occlusion. 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 INTRACRANIAL/SKULL BASE/INCLUDEDORBITS: Limited intracranial evaluation. No abnormal findings. PARANASAL SINUSES: Well-aerated. CERVICAL SPINE: No acute osseous abnormality. Mild multilevel cervical spine degenerative disc disease.LUNG APICES: Clear. OTHER: No radiodense foreign bodies in the imaged esophagus. IMPRESSION: 1. Soft tissue thickening/edema within the glottic and supraglottic larynx resulting in marked narrowing of the airway along an approximately 10 mm segment at this region with partial effacement of the leftpiriformis sinus which could reflect acute laryngitis. 2. No radiodense foreign bodies within the imaged airway or imaged esophagus. THIS IS AN ELECTRONICALLY VERIFIED FINAL REPORT 06/15/2023 5:38 PM- Electronically signed by Deborah Watson M.D. AT T: Report ID: [id number] Reading Location: [place] [address] ED COURSE/MEDICAL DECISION MAKING Differential diagnosis included but not limited to foreign body, globus, bolus, laryngitis, epiglottitis, cellulitis Patient's medical records were reviewed. 2029 No ENT induction b[facility]er here. D/w [facility] access line -- they will call me back with ENT. 2049 D/w [place] ENT Dr. Esposito -- recommends admission for scoping. No ENT here and [place] on black status. Will reassess pt following steroids. Toyah for patient to be admitted somewhere for 24 hours of steroids, preferably dex 10 mg q8 hours. Per access line, there is an ENT Dr. Serrano here through the weekend. 2109 No improvement after solumedrol the patient is able to lie flat without difficulty or change in sensation. Call back out to [place] to discuss transfer. No ENT here confirmed at [place] by thename of Dr. Serrano. 2139 D/w [place] ED attending Dr. Kay -- accepts pt for transfer to ER now that [place] on red status. ED Course as of 06/15/232110 Time: 06/15 2111 Comment: IMPRESSION: No acute cardiopulmonary abnormality. By: Jeremy Walters PA Pt w/ globus and odynophagia after attempting to take multiple digestive enzyme tablets all at once. Afebrile, vital signs within normal limits. No shortness of breath. Voice hoarseness but no stridor. No difficulty with lying flat. No improvement with 125 mg Solu-Medrol given in the ED. Labs reassuring but CT showing soft tissue thickening/edema within the glottic and supraglottic larynx resulting in marked narrowing of the airway. D/w ENT -- would benefit from scope. Pt to be transferred to [place] ED-ED transfer. Immediate airway compromise at this time and patient still remains without shortness of breath or stridor. Stable for transfer. Procedures FINAL IMPRESSION Laryngitis Subglottic inflammation DISPOSITION: Home All findings were discussed with patient. Pt agreeable with plan. PATIENT INSTRUCTED TO FOLLOW UP No follow-up provider specified. DISCHARGE MEDICATIONS Your medication list ASK your doctor about these medications Instructions Last Dose Given Next Dose Due ascorbic acid 1,000 mg tablet Commonly known as: VITAMIN C 1,000 mg, oral, Nightly atomoxetine 25 mg capsule Commonly known as: STRATTERA 50 mg, Daily biotin 1,000 mcg tablet,chewable 1 capsule, oral, Daily cholecalciferol 2000 unit capsule Commonly known as: VITAMIN D-3 2,000 Units, oral, Nightly Fish OiL 1,000 mg (120 mg-180 mg) capsule Generic drug: omega 8-jun-kig-fish oil 1 g, oral, Nightly loperamide 2 mg tablet Commonly known as: IMODIUM A-D 2 mg, oral, 4 times daily PRN lysine 1,000 mg tablet 1,000 mg, oral, Nightly metroNIDAZOLE 250 mg tablet Commonly known as: FLAGYL multivitamin capsule 1 capsule, oral, Nightly ofloxacin 0.3 % ophthalmic solution Commonly known as: OCUFLOX omega-3 fatty acids-fish oil 300-1,000 mg capsule 1 g, oral, Nightly prednisoLONE acetate 1 % ophthalmic suspension Commonly known as: PRED FORTE Prolensa 0.07 % drops Generic drug: bromfenac turmeric root extract 500 mg capsule 500 mg, oral, Nightly valACYclovir 500 mg tablet Commonly known as: VALTREX 500 mg, oral, 3 times daily zinc 50 mg tablet 50 mg, oral, Nightly This examination was transcribed using the [employer] voice recognition system without human psychologist engineering. In an effort to expedite patient care, this report has not been adjusted for typographical, grammatical, and syntax by a trained diploma medical assistant. Jeremy Walters PA 06/15/232151 Cosigned by Andreia Fink DO at 06/20/2023 11:42 PM CDT Associated attestation - Andreia Fink DO - 06/20/2023 11:42 PM CDT ED Attestation I did not see this patient. However, I was personally available for consultation in the ED for thispatient if the Advanced Practice Provider (AMI) needed any assistance. The AMI evaluated the patient independently and completed their own examination, documentation, and disposition. * Jamila Lopez RN - 06/15/2023 3:48 PM CDT Pt c/o sore throat. PT reports trying to take 5 pills at one time last night and choking on them. Pt reports being to get one out. Pt c/o difficulty swallowing and hoarseness. Pt reports feeling likeshe still has the pills stuck. Pt reports going to a different ED last night. PT reports having a throat and chest x-ray done. Pt has audible inspiratory wheezing Breathing even and non-labored NAD documented in this encounter Plan of Treatment Not on file documented as of this encounter Procedures Procedure Name Priority Date/Time Associated Diagnosis Comments XR CHEST PA LATERAL 2 VIEWS ED 06/15/2023 8:[address] SOFT TISSUE NECK W CONTRAST ED 06/15/2023 5:11 PM CDT POCT CREATININE FOR CONTRAST EVALUATION Routine 06/15/2023 4:17 PM CDT EGFR STAT 06/15/2023 4:06 PM CDT DIFFERENTIAL AUTO STAT 06/15/2023 4:0 6 PM CDT CBC WITH AUTO DIFFERENTIAL STAT 06/15/2023 4:06 PM CDT COMPREHENSIVE METABOLIC PANEL STAT 06/15/2023 4:06 PM CDT documented in this encounter Results * XR Chest Pa Lateral 2 Views (06/15/2023 8:34 PM CDT) Anatomical Region Laterality Modality Body, Chest N/A Computed Radiogr aphy 06/15/2023 8:36 PM CDT Narrative 06/15/2023 8:37 PM CDT EXAM DESCRIPTION: XR CHEST PA LATERAL 2 VIEWS REASON FOR STUDY: cough ?? Pt c/o sore throat. PT reports trying to take 5 pills at one time last night and choking on them. Pt reports being to get one out. Pt c/o difficulty swallowing and hoarseness. Pt reports feeling like she still has the pills stuck. Pt reports going to a ?? different ED last night. PT reports having a throat and chest x-ray done. ??Pt has audible inspiratory wheezing ??Breathing even and non-labored ?? TECHNIQUE: PA and lateral ??radiographic view(s) of the chest. COMPARISON: None. FINDINGS: LUNGS: ??There is a calcified nodule in the right middle lobe as evidence for old granulomatous disease. ??Lungs otherwise appear clear. ?? HEART/MEDIASTINUM: ??Cardiac silhouette normal in size. Mediastinal and hilar contours appear normal. LINES/TUBES: ??None. BONES: ??There are mild degenerative changes of the thoracic spine. IMPRESSION: No acute cardiopulmonary abnormality. THIS IS AN ELECTRONICALLY VERIFIED FINAL REPORT 06/15/2023 8:37 PM - Electronically signed by ??Rohit Bond M.D., D.O. Rohit Bond M.D., D.O. MW D: ??06/15/2023 8:37 PM T: Report ID: [id number] Reading Location: ??[id number] Procedure Note Rohit Bond MD - 06/15/2023 EXAM DESCRIPTION: XR CHEST PA LATERAL 2 VIEWS REASON FOR STUDY: cough Pt c/o sore throat. PT reports trying to take 5 pills at one time lastnight and choking on them. Pt reports being to get one out. Pt c/o difficulty swallowing and hoarseness. Pt reports feeling like she still has the pills stuck. Pt reports going to a different ED last night. PT reports havinga throat and chest x-ray done. Pt has audible inspiratory wheezingBreathing even and non-labored TECHNIQUE: PA and lateral radiographic view(s) of the chest. COMPARISON: None. FINDINGS: LUNGS: There is a calcified nodule in the right middle lobe as evidence for old granulomatous disease. Lungs otherwise appear clear. HEART/MEDIASTINUM: Cardiac silhouette normal in size. Mediastinal andhilar contours appear normal. LINES/TUBES: None. BONES: There are mild degenerative changes of the thoracic spine. IMPRESSION: No acute cardiopulmonary abnormality. THIS IS AN ELECTRONICALLY VERIFIED FINAL REPORT 06/15/2023 8:37 PM - Electronically signed by Rohit Bond M.D., Goran.OEmil Bond M.D., D.O. T: Report ID: [id number] Reading Location: [place] [address] Jeremy MEJIA IMG XR PROCEDURES Final R esult * CT Neck Soft Tissue W Contrast (06/15/2023 5:11 PM CDT) Anatomical Region Laterality Modality Head and Neck N/A Computed Tomogra phy 06/15/2023 5:24 PM CDT Narrative 06/15/2023 5:38 PM CDT EXAM DESCRIPTION: ?? CT SOFT TISSUE NECK W CONTRAST REASON FOR STUDY: ?? FB sensation ?? Pt c/o sore throat. PT reports trying to take 5 pills at one time last night and choking on them. Pt reports being to get one out. Pt c/o difficulty swallowing and hoarseness. Pt reports feeling like she still has the pills stuck. Pt reports going to a ?? different ED last night. PT reports having a throat and chest x-ray done. ??Pt has audible inspiratory wheezing ?Surg Hx: ?? Ablation, No surgery to neck ?? TECHNIQUE: Post IV contrast scanning from skull base through lung apices. ?? Reconstructed MPR images reviewed. All images stored on PACS. Automated exposure control was used as a dose optimization technique for this examination. CONTRAST TYPE/DOSE: ?? 100mL of IOVERSOL 350 MG IODINE/ML INTRAVENOUS SYRINGE ?? injected COMPARISON: ?? None available FINDINGS: Subcutaneous SOFT TISSUE: ?? No mass, edema or inflammatory change. ORAL CAVITY/FLOOR OF MOUTH, PHARYNX, LARYNX, HYPOPHARYNX: ?? There is soft tissue thickening/edema within the glottic and supraglottic larynx resulting in marked narrowing of the airway along an approximately 10 mm segment at this region with partial effacement of the left piriformis sinus which could reflect acute laryngitis. ??The epiglottis is normal. ?? The valleculae are unremarkable. ??No radiodense foreign bodies within the imaged airway. LYMPHADENOPATHY: ?? No adenopathy. MAJOR SALIVARY GLANDS: ?? No solid or cystic masses. ??No inflammatory changes. THYROID: ?? Normal size. ??Hypoattenuating nodules in both thyroid lobes are present measuring up to 7 mm in the right thyroid lobe. VASCULATURE: ?? No apparent critical stenosis or occlusion. ?? 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 INTRACRANIAL/SKULL BASE/INCLUDED ORBITS: ?? Limited intracranial evaluation. No abnormal findings. PARANASAL SINUSES: ?? Well-aerated. CERVICAL SPINE: ?? No acute osseous abnormality. ??Mild multilevel cervical spine degenerative disc disease. LUNG APICES: ?? Clear. OTHER: ?? No radiodense foreign bodies in the imaged esophagus. IMPRESSION: 1. ??Soft tissue thickening/edema within the glottic and supraglottic larynx resulting in marked narrowing of the airway along an approximately 10 mm segment at this region with partial effacement of the left piriformis sinus which could reflect acute laryngitis. 2. ??No radiodense foreign bodies within the imaged airway or imaged esophagus. THIS IS AN ELECTRONICALLY VERIFIED FINAL REPORT 06/15/2023 5:38 PM - Electronically signed by ??Deborah Watson M.D. AT D: ??06/15/2023 5:38 PM T: Report ID: [id number] Reading Location: ??[id number] Procedure Note Deborah Watson MD - 06/15/2023 EXAM DESCRIPTION: CT SOFT TISSUE NECK W CONTRAST REASON FOR STUDY: FB sensation Pt c/o sore throat. PT reports trying to take 5 pills at one time lastnight and choking on them. Pt reports being to get one out. Pt c/o difficulty swallowing and hoarseness. Pt reports feeling like she still has the pills stuck. Pt reports going to a different ED last night. PT reports havinga throat and chest x-ray done. Pt has audible inspiratory wheezing SurgHx: Ablation, No surgery to neck TECHNIQUE: Post IV contrast scanning from skull base through lung apices. Reconstructed MPR images reviewed. All images stored on PACS. Automated exposure control was used as a dose optimization technique for this examination. CONTRAST TYPE/DOSE: 100mL of IOVERSOL 350 MG IODINE/ML INTRAVENOUSSYRINGE injected COMPARISON: None available FINDINGS: Subcutaneous SOFT TISSUE: No mass, edema or inflammatorychange. ORAL CAVITY/FLOOR OF MOUTH, PHARYNX, LARYNX, HYPOPHARYNX: There is soft tissue thickening/edema within the glottic and supraglottic larynxresulting in marked narrowing of the airway along an approximately 10 mm segment atthis region with partial effacement of the left piriformis sinus which could reflect acute laryngitis. The epiglottis is normal. The valleculae are unremarkable. No radiodense foreign bodies within the imaged airway. LYMPHADENOPATHY: No adenopathy. MAJOR SALIVARY GLANDS: No solid or cystic masses. No inflammatorychanges. THYROID: Normal size. Hypoattenuating nodules in both thyroid lobes are present measuring up to 7 mm in the right thyroid lobe. VASCULATURE: No apparent critical stenosis or occlusion. Left-sidedaortic arch with an aberrant right subclavian artery as a normal variant imposing mild mass-effect upon the esophagus. INTRACRANIAL/SKULL BASE/INCLUDED ORBITS: Limited intracranialevaluation. No abnormal findings. PARANASAL SINUSES: Well-aerated. CERVICAL SPINE: No acute osseous abnormality. Mild multilevel cervical spine degenerative disc disease. LUNG APICES: Clear. OTHER: No radiodense foreign bodies in the imaged esophagus. IMPRESSION: 1. Soft tissue thickening/edema within the glottic and supraglottic larynx resulting in marked narrowing of the airway along an approximately 10 mm segment at this region with partial effacement of theleft piriformis sinus which could reflect acute laryngitis. 2. No radiodense foreign bodies within the imaged airway or imagedesophagus. THIS IS AN ELECTRONICALLY VERIFIED FINAL REPORT 06/15/2023 5:38 PM - Electronically signed by Deborah Watson M.D. AT T: Report ID: [id number] Reading Location: [id number] us Jeremy MEJIA IMG CT PROCEDURES Final R esult * POCT creatinine for contrast evaluation (06/15/2023 4:17 PM CDT) Creatinine POC 0.70 0.60 - 1.10 mg/dL JAZZ MORRIS Blood 06/15/2023 4:17 PM CDT 06/15/2023 4:17 PM CDT us Notinfile Unknown POINT OF CARE TEST ORDERABLES Final Result JAZZ [address] [facility] [place] [address] * eGFR (06/15/2023 4:06 PM CDT) eGFR 108 mL/min/1. 73 m2 JAZZ MORRIS Comment: Interpretive Data Reference Interval Normal ?>/= 90 mL/min/1.73m2 Mildly decreased* ? 60 - 89 mL/min/1.73m2 Mildly to moderately decreased ?45 - 59 mL/min/1.73m2 Moderately to severely decreased ??30 - 44 mL/min/1.73m2 Severely decreased ?15 - 29 mL/min/1.73m2 Kidney Failure ?< 15 ??mL/min/1.73m2 *Relative to young adult level Estimated glomerular filtration rate is determined by the 2020 CKD-EPI equation recommended by the National Kidney Foundation (A Unifying Approach to GFR Estimation: Recommendations of the NKF-ASK Task Force on Reassessing the Inclusion of Race in Diagnosing Kidney Disease, JASN 202). The CKD-EPI equation should not be used for patients with unstable renal function and has not been validated in children and those over 70. Current interpretive data was last reviewed 2021. Blood 06/15/2023 4:06 PM CDT 06/15/2023 4:09 PM CDT Jeremy MEJIA LAB BLOOD ORDERABLES Maria Teresa baum Result [facility] [address] [facility] [place] [address] * (ABNORMAL) Differential, auto (06/15/2023 4:06 PM CDT) Neutrophil abs 8.5(H) 1.7 - 6.5 K/cumm [facility] Imm gran abs 0.0 0.0 - 0.1 K/cumm [facility] Lymphocyte abs 1.8 0.8 - 3.3 K/cumm [facility] Monocyte abs 0.5 0.2 - 0.8 K/cumm [facility] Eosinophil abs 0.1 0.0 - 0.5 K/cumm [facility] Basophil abs 0.1 0.0 - 0.1 K/cumm [facility] Neutrophil pct 77.3 % [facility] Comment: Interpretive Data Percent cell count reference ranges are not reported, since discordance with absolute values may lead to misinterpretation of CBC data. Current Interpretive Data was last revised on 2017. Imm gran pct 0.3 % [facility] Comment: Interpretive Data Percent cell count reference ranges are not reported, since discordance with absolute values may lead to misinterpretation of CBC data. Current Interpretive Data was last revised on 2017. Lymphocyte pct 16.4 % [facility] Comment: Interpretive Data Percent cell count reference ranges are not reported, since discordance with absolute values may lead to misinterpretation of CBC data. Current Interpretive Data was last revised on 2017. Monocyte pct 4.8 % [facility] Comment: Interpretive Data Percent cell count reference ranges are not reported, since discordance with absolute values may lead to misinterpretation of CBC data. Current Interpretive Data was last revised on 2017. Eosinophil pct 0.7 % [facility] Comment: Interpretive Data Percent cell count reference ranges are not reported, since discordance with absolute values may lead to misinterpretation of CBC data. Current Interpretive Data was last revised on 2017. Basophil pct 0.5 % [facility] Comment: Interpretive Data Percent cell count reference ranges are not reported, since discordance with absolute values may lead to misinterpretation of CBC data. Current Interpretive Data was last revised on 2017. Blood 06/15/2023 4:06 PM CDT 06/15/2023 4:09 PM CDT Jeremy MEJIA LAB BLOOD ORDERABLES Maria Teresa l Result [facility] [address] [facility] Department [place] [address] * Comprehensive metabolic panel (06/15/2023 4:06 PM CDT) Sodium 140 135 - 145 mmol/L [facility] Potassium, pl 3.8 3.3 - 4.9 mmol/L [facility] Chloride 104 97 - 110 mmol/L [facility] CO2 28 22 - 32 mmol/L [facility] Anion gap 8 2 - 15 mmol/L [facility] BUN 7 6 - 25 mg/dL [facility] Creatinine 0.60 0.60 - 1.10 mg/dL [facility] Glucose 157 70 - 199 mg/dL [facility] Comment: Interpretive Data Fasting glucose >/= 126 mg/dl is diagnostic for diabetes. ?? Fasting is defined as no caloric intake for at least 8 hours. Fasting glucose between 100 mg/dl to 125 mg/dl is diagnostic of prediabetes. In a patient with classic symptoms of hyperglycemia or hyperglycemic crisis, a random glucose >/= 200 mg/dl is diagnostic for diabetes. In the absence of unequivocal hyperglycemia, results should be confirmed by repeat testing. The classification and Diagnosis of Diabetes Diabetes Care 2021; 46: S19-S40. Current interpretive data was last revised 2022. Calcium 9.2 8.5 - 10.3 mg/dL [facility] Bilirubin, total 0.5 0.1 - 1.2 mg/dL [facility] Protein, pl 7.2 6.5 - 8.5 g/dL [facility] Albumin 4.2 3.5 - 5.0 g/dL [facility] Alk phos 60 40 - 130 Units/L [facility] ALT 18 7 - 45 Units/L [facility] AST 16 10 - 45 Units/L [facility] Blood 06/15/2023 4:06 PM CDT 06/15/2023 4:09 PM CDT Jeremy MEJIA LAB BLOOD ORDERABLES Maria Teresa baum Result [facility] [address] [facility] Department [place] [address] * (ABNORMAL) CBC with auto differential (06/15/2023 4:06 PM CDT) Pathologist [facility] WBC 10.9(H) 3.8 - 9.9 K/cumm [facility] Hgb 13.8 11.9 - 15.5 g/dL [facility] Comment: Interpretive Data A reference range for this assay has not been established for patients with an unknown legal sex. Please refer to the laboratory test catalog for established sex-specific reference intervals. Current interpretive data was last revised on 2023. Hct 41.6 35.6 - 45.5 % [facility] Comment: Interpretive Data A reference range for this assay has not been established for patients with an unknown legal sex. Please refer to the laboratory test catalog for established sex-specific reference intervals. Current interpretive data was last revised on 2023. Plt 253 150 - 400 K/cumm [facility] MPV 10.7 9.1 - 12.[address] [facility] RBC 4.54 3.90 - 5.20 M/cumm [facility] Comment: Interpretive Data A reference range for this assay has not been established for patients with an unknown legal sex. Please refer to the laboratory test catalog for established sex-specific reference intervals. Current interpretive data was last revised on 2023. MCV 91.6 81.3 - 96.[address] [facility] MCH 30.4 27.1 - 33.[address] [facility] MCHC 33.2 32.3 - 35.7 g/dL [facility] RDW CV 13.0 11.1 - 14.9 % [facility] RDW SD 43.8 35.7 - 48.[address] [facility] NRBC abs 0.00 0.00 - 0.01 K/cumm [facility] Blood 06/15/2023 4:06 PM CDT 06/15/2023 4:09 PM CDT Jeremy MEJIA LAB BLOOD ORDERABLES Maria Teresa baum Result [place] [id number] [facility] [place] [address] documented in this encounter Visit Diagnoses Diagnosis Laryngitis- Primary Acute laryngitis, without mention of obstruction Subglottic inflammation documented in this encounter Administered Medications Inactive Administered Medications - up to 3 most recent administrations Medication Order MAR Action Action Date Dose Rate Site ioversoL (OPTIRAY 350) syringe 100 mL 100 mL, intravenous, Once in imaging, contrast, Starting on Sun06/15/23 at 1712, For 1 dose Contrast Given 06/15/2023 5:12 PM CDT 100 mL Left Antecubital LORazepam (ATIVAN) tablet 0.5 mg 0.5 mg, oral, Once, On Sun06/15/23 at 2018, For 1 dose Given 06/15/2023 8:38 PM CDT 0.5 mg methylPREDNISolone sodium succinate (SOLU-medrol) preservative free injection 124 mg 124 mg, intravenous, Administer over 3 Minutes, Once, On Sun06/15/23 at 2011, For 1 dose, Indications: edemaIndications:edema Given 06/15/2023 8:38 PM CDT 124 mg documented in this encounter Active and Recently Administered Medications Times are shown in CDT. Scheduled Medication Order 06/13/2023 06/14/2023 06/15/2023 LORazepam (ATIVAN) tablet 0.5 mg (COMPLETED) 0.5 mg, oral, Once, On Sun06/15/23 at 2018, For 1 dose 2037 (Given - Provid er: Snehal Mcgarry RN) methylPREDNISolone sodium succinate (SOLU-medrol) preservative free injection 124 mg (COMPLETED) 124 mg, intravenous, Administer over 3 Minutes, Once, On Sun06/15/23 at 2011, For 1 dose, Indications: edema 2037 (Given - Provid er: Snehal Mcgarry RN) PRN Medication Order 06/13/2023 06/14/2023 06/15/2023 ioversoL (OPTIRAY 350) syringe 100 mL (COMPLETED) 100 mL, intravenous, Once in imaging, contrast, Starting on Sun06/15/23 at 1712, For 1 dose 1712 (Contrast Given - Provider: Mili Joyce, RT) documented in this encounter Care Teams Dowel Sander Operator Relationship Specialty Start Date End Date Ton Hernandez NP [address] [place] [phone] PCP - General Nurse Practitioner 03/08/23 Crispin Shen MD Surgeon Colon and Rectal Surgery 09/09/20 Kemi Schmitz [address] [place] [address] Surgeon Colon and Rectal Surgery 05/16/21 Maria C Zacarias MD [address] [place] [address] Sales Systems Engineer Gastroenterology 04/02/23 documented as of this encounter
--- OUTSIDE RECORDS SUMMARY | 2024-08-18 09:53 | XMS_ITS | Encounter Summary ---
Author Organization [facility] Healthcare Address [address] [place] [address] Care Team Providers Care [employer] Baseball Umpire Name Role Phone Crispin Shen MD Unavailable [phone] Kemi Schmitz Unavailable Ton Hernandez NP Primary Care Provider [phone] Maria C Zacarias MD Unavailable [phone] Reason for Referral * Gastroenterology (Routine) - Closed Specialty Diagnoses / Procedures Referred By Contac t Referred To Contact Diagnoses Incontinence of feces, unspecified fecal incontinence type Dyssynergic defecation Procedures High Resolution Anorectal Motility (Rectal Sensation/Tone) with Balloon Expulsion - Vivian Thornton MD [address] [facility] [address] [place] [address] Phone: tel: fax: [address] [phone] Referral ID Status Reason Start Date Expiration Date Visits Re quested Visits Authorized [id number] Closed 05/25/2023 06/23/2024 1 1 NG STRAP CLOSER Reason for Visit * Gastroenterology (Routine) - Closed Specialty Diagnoses / Procedures Referred By Contac t Referred To Contact Diagnoses Incontinence of feces, unspecified fecal incontinence type Dyssynergic defecation Procedures High Resolution Anorectal Motility (Rectal Sensation/Tone) with Balloon Expulsion - Vivian Thornton MD [address] [place] [address] Phone: tel: fax: [address] [place] [address] Referral ID Status Reason Start Date Expiration Date Visits Re quested Visits Authorized [id number] Closed 05/25/2023 06/23/2024 1 1 Encounter Details Date Type Department Care Team (Latest Contact Info) Description 07/19/2023 9:00 AM LINING STRAP CLOSER - 07/19/2023 11:59 PM [facility] Hospital Encounter [facility] [facility] [address] [place] [address] Incontinence of feces, unspecified fecal incontinence type; Dyssynergic defecation Discharge Disposition: Discharge to home or self [...] week 11/24/2020 How often do you attend [facility] or rastafari services? 1 to 4 times per year [...] on file Legal Sex Female 9:36 AM LINING STRAP CLOSER Gender Identity Female 11/16/2020 2:58 PM CDT Sexual Orientation Straight 11/16/2020 2: 58 PM CDT documented as of this encounter Last Filed Vital Signs Vital Sign Reading Time Taken Comments Blood Pressure 143/95 07/19/2023 9:26 AM LINING STRAP CLOSER Pulse - - Temperature - - Respiratory Rate 24 07/19/2023 9:26 AM LINING STRAP CLOSER Oxygen Saturation 96% 07/19/2023 9:26 AM LINING STRAP CLOSER Inhaled Oxygen Concentration - - Weight 95.3 kg (210 lb) 07/19/2023 9:26 AM LINING STRAP CLOSER Height 177.8 cm (5' 10 ) 07/19/2023 9:26 AM LINING STRAP CLOSER Body Mass Index 30.13 07/19/2023 9:26 AM LINING STRAP CLOSER documented in this encounter Medications at Time of Discharge lysine 1,000 mg tablet Take 1,000 mg by mouth nightly psyllium, aspartame, SF (METAMUCIL SF) 3.4 gram packet Take 1 packet by mouth janitorial cleaner before breakfast turmeric root extract 500 mg capsule Take 500 mg by mouth nightly valACYclovir (VALTREX) 500 mg tablet Take 1 tablet (500 mg total) by mouth 3 (three) times a day 10/02/2022 ascorbic acid (VITAMIN C) 1,000 mg tabletIndications: Vitamin C Deficiency,supplem ent Take 1 tablet (1,000 mg total) by mouth nightly 4 atomoxetine (STRATTERA) 25 mg capsule 2 capsules (50 mg total) daily 04/26/2023 4 biotin 1,000 mcg tablet,chewable Take 1 capsule by mouth daily 4 cholecalciferol (VITAMIN D-3) 2000 unit capsuleIndications :Vitamin D Deficiency Take 1 capsule (2,000 Units total) by mouth nightly 4 famotidine (PEPCID) 20 mg tabletIndications: Laryngitis Take 1 tablet (20 mg total) by mouth daily for 7 days 7 tablet 06/16/2023 4 linaCLOtide (LINZESS) 145 mcg capsuleIndications :chronic idiopathic constipation Take 1 capsule (145 mcg total) by mouth daily 30 capsule 2 06/29/2023 4 loperamide (IMODIUM A-D) 2 mg tablet Take 1 tablet (2 mg total) by mouth 4 (four) times a day as needed 4 LORazepam (ATIVAN) 0.5 mg tablet Take 1 tablet (0.5 mg total) by mouth 2 (two) times a day as needed 06/18/2023 4 metroNIDAZOLE (FLAGYL) 250 mg tablet 05/25/2023 4 multivitamin capsuleIndications :Vitamin Deficiency Prevention Take 1 capsule by mouth nightly 4 ofloxacin (OCUFLOX) 0.3 % ophthalmic solution 02/23/2023 4 omega 2-ghx-dtj-fish oil (Fish OiL) 1,000 mg (120 mg-180 mg) capsule Take 1 capsule (1,000 mg total) by mouth nightly 4 omega-3 fatty acids-fish oil 300-1,000 mg capsuleIndications :for supplement Take 1 capsule (1 g total) by mouth nightly 4 prednisoLONE acetate (PRED FORTE) 1 % ophthalmic suspension 03/29/2023 4 Prolensa 0.07 % drops 02/23/2023 4 zinc 50 mg tabletIndications: for supplement Take 50 mg by mouth nightly 4 documented as of this encounter Discharge Disposition Disposition Code Departure Means Destination Discharge to home or self care documented in this encounter Miscellaneous Notes * Result Encounter Note - Vivian Thornton MD - 07/19/2023 11:59 PM LINING STRAP CLOSER ARM shows dyssynergic defecation with abnormal balloon expulsion test, please refer to Pelvic PT for PT with biofeedback NG STRAP CLOSER documented in this encounter Plan of Treatment Not on file documented as of this encounter Procedures Procedure Name Priority Date/Time Associated Diagnosis Comments HIGH RESOLUTION ANORECTAL MOTILITY (RECTAL SENSATION/TONE) WITH BALLOON EXPULSION Routine 07/19/2023 Incontinence of feces, unspecified fecal incontinence type Dyssynergic defecation documented in this encounter Results * High Resolution Anorectal Motility (Rectal Sensation/Tone) with Balloon Expulsion - (07/19/2023) Anatomical Region Laterality Modality Other us Vivian Thornton MD GI LAB PROCEDURE ORDERABLES Fi nal Result documented in this encounter Visit Diagnoses Diagnosis Incontinence of feces, unspecified fecal incontinence type Dyssynergic defecation documented in this encounter Historical Medications * This list may reflect changes made after this encounter. psyllium, aspartame, SF (METAMUCIL SF) 3.4 gram packet Take 1 packet by mouth janitorial cleaner before breakfast LORazepam (ATIVAN) 0.5 mg tablet Take 1 tablet (0.5 mg total) by mouth 2 (two) times a day as needed 06/18/2023 added in this encounter Care Teams [employer] Umpire Relationship Specialty Start Date End Date Ton Hernandez NP [address] [place] [phone] PCP - General Nurse Practitioner 03/08/23 Crispin Shen MD Surgeon Colon and Rectal Surgery 09/09/20 Kemi Schmitz [address] [place] [address] Surgeon Colon and Rectal Surgery 05/16/21 Maria C Zacarias MD [address] [place] [address] Claim Trainee Gastroenterology 04/02/23 documented as of this encounter
--- OUTSIDE RECORDS SUMMARY | 2024-08-18 09:53 | XMS_ITS | Encounter Summary ---
Author Organization [facility] Address [address] [facility] [address] [place] [address] Phone Care Team Providers Care Rug Scratcher Name Role Phone Crispin Shen MD Unavailable [phone] Kemi Schmitz Unavailable No, Physician Primary Care Provider [phone] Encounter Details Date Type Department Care Team (Late st Contact Info) Description 05/25/2022 Telephone [facility] [address] [place] [address] Medical Office Building [address] [place] [address] Akosua Clark RN Social History Tobacco Use Types Packs/Day [...] week 11/24/2020 How often do you attend [facility] or yazidi services? 1 to 4 times per year [...] file Legal Sex Female 9:36 AM DIRECTOR OF CATEGORY MANAGEMENT Gender Identity Female 11/16/2020 2:58 PM CDT Sexual Orientation Straight 11/16/2020 2: 58 PM CDT documented as of this encounter Miscellaneous Notes * Telephone Encounter - Akosua Clark RN - 05/25/2022 10:59 AM CDT Spoke to the patient about her recent [employer] message. She reports last night from 9:30-11pm, she had severe abdominal pain, she took an oxycodone which helped for a couple hours along with abdominal massage. After the massage, she reports hearing gurgling and had 3 formed bms and was able to fall asleep. She awoke in the early am with pain but it was not as intense, she had another softer bm this am which has also helped. She is feeling better at this time. Denies any v/f/c, incision sites look good. I recommended she take 1 tbsp of fiber daily, drink a minimum of 64 oz and ambulate frequently. We also discussed diet. I stated that it sounds like she was having some constipation but to call us back if she has any change in s/s, she verbalized understanding. * Telephone Encounter - Akosua Clark RN - 05/25/2022 10:59 AM CDT ----- Message from ANGELINE Alvarez sent at 05/25/2022 10:39 AM CDT ----- Regarding: FW: Belem???s recovery Could you please call this patient for triage. We can add her on tomorrow if you feel like she can wait to be seen. ----- Message ----- From: Belem Smith Sent: 05/25/2022 6:24 AM CDT To: Jean Sierra/Tabitha Flores [facility] [place] Subject: Belem???s recovery Additionally, she has no fever. documented in this encounter Plan of Treatment Not on file documented as of this encounter Visit Diagnoses Not on filedocumented in this encounter Care Teams Rug Scratcher Relationship Specialty Start Date End Date No, Physician PCP - General 05/22/22 03/07/23 Crispin Shen MD Surgeon Colon and Rectal Surgery 09/09/20 Kemi Schmitz [address] [place] [address] Surgeon Colon and Rectal Surgery 05/16/21 documented as of this encounter
--- OUTSIDE RECORDS SUMMARY | 2024-08-18 09:53 | XMS_ITS | Encounter Summary ---
Author Organization [facility] Healthcare Address [address] [place] [address] Care Team Providers Care Occupational Health Professional Name Role Phone Crispin Shen MD Unavailable Kemi Schmitz Unavailable Ton Hernandez NP Primary Care Provider [phone] Maria C Zacarias MD Unavailable [phone] Encounter Details Date Type Department Care Team (Latest Contact Info) Description 05/11/2023 9:04 AM CDT - 05/11/2023 11:59 PM CDT Hospital Encounter [facility] [address] [place] [address] Vivian Thornton MD [address] [facility] [address] [place] [address] Frequent bowel movements Discharge Disposition: Discharge to home or self [...] often do you attend chur ch or restorationist services? 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 Gender Identity Female 11/16/2020 2:58 PM CDT [...] mouth 3 (three) times a day 3 ascorbic acid (VITAMIN C) 1,000 mg tabletIndications:V itamin C Deficiency,suppleme nt Take 1 tablet (1,000 mg total) by mouth nightly 09/11/19 24 atomoxetine (STRATTERA) 25 mg capsule 2 capsules (50 mg total) daily 3 09/11/19 24 cholecalciferol (VITAMIN D-3) 2000 unit capsuleIndications: Vitamin D Deficiency Take 1 capsule (2,000 Units total) by mouth nightly 09/11/19 24 cyclobenzaprine (FLEXERIL) 5 mg tablet Take 1 tablet (5 mg total) by mouth 2 (two) times a day as needed for muscle spasms 30 tablet 2 05/14/20 23 gabapentin (NEURONTIN) 100 mg capsule Take 1 capsule (100 mg total) by mouth 3 (three) times a day 30 capsule 2 05/14/20 23 LORazepam (ATIVAN) 0.5 mg tablet Take 1 tablet (0.5 mg total) by mouth 2 (two) times a day as needed for anxiety 0 05/14/20 23 metroNIDAZOLE (FLAGYL) 500 mg tablet Take one tablet at 1pm, 2pm, and 10pm the day before surgery 3 tablet 2 05/14/20 23 multivitamin capsuleIndications: Vitamin Deficiency Prevention Take 1 capsule by mouth nightly 09/11/19 24 neomycin (MYCIFRADIN) 500 mg tablet Take two tablets by mouth at 1pm, 2pm, and 10pm the day before surgery 6 tablet 2 05/14/20 23 ofloxacin (OCUFLOX) 0.3 % ophthalmic solution 3 09/11/19 24 omega-3 fatty acids-fish oil 300-1,000 mg capsuleIndications: for supplement Take 1 capsule (1 g total) by mouth nightly 09/11/19 24 ondansetron ODT (ZOFRAN-ODT) 8 mg disintegrating tablet Take one tablet at 11am when starting bowel prep, take one tablet as needed every six to eight hours after 3 tablet 2 05/14/20 23 oxyCODONE (ROXICODONE) 5 mg immediate release tabletIndications:P ain Take 1 tablet (5 mg total) by mouth every 4 (four) hours as needed (intolerable pain) 15 tablet 2 05/14/20 23 PARoxetine (PAXIL) 10 mg tablet Take 1 tablet (10 mg total) by mouth daily 3 05/14/20 23 polyethylene glycol (MIRALAX) 17 gram packetIndications:c onstipation Take 1 packet (17 g total) by mouth daily as needed for constipation 30 packet 2 05/14/20 23 prednisoLONE acetate (PRED FORTE) 1 % ophthalmic suspension 3 09/11/19 24 Prolensa 0.07 % drops 3 09/11/19 24 psyllium, aspartame, SF (METAMUCIL SF) 3.4 gram packet Take 1 packet by mouth daily as needed (constipation) 30 packet 2 05/14/20 23 simethicone (GAS-X ORAL) Take by mouth 05/14/20 23 sodium, potassium & mag sulfates (SUPREP BOWEL KIT) 17.5-3.13-1.6 gram recon solnIndications:[place] el Evacuation Drink 1 bottle at 6pm the night before procedure. Drink 2nd bottle 4 hours prior to leaving home. 354 mL 3 05/14/20 23 topiramate (TOPAMAX) 50 mg tablet Take 1 tablet (50 mg total) by mouth nightly 3 05/14/20 23 zinc 50 mg tabletIndications:f or supplement Take 50 mg by mouth nightly 09/11/19 24 documented as of this encounter Discharge Disposition Disposition Code Departure Means Destination Discharge to home or self care documented in this encounter Miscellaneous Notes * Result Encounter Note - Vivian Thornton MD - 05/11/2023 11:59 PM CDT Xray shows stool burden in colon, likely has constipation with overflow diarrhea No anemia on labs, celiac testing negative, stool studies , calpro negative Start daily fiber supplement with miralax daily, avoid imodium After completing colonoscopy with surgery team, schedule ARM with BET for evaluation of fecal incontinence and dyssynergic defecation documented in this encounter Plan of Treatment Not on file documented as of this encounter Procedures Procedure Name Priority Date/Time Associated Diagnosis Comments XR KUB Schedule Routine, Read Routine (OP Routine) 05/11/2023 9:32 AM CDT Frequent bowel movements documented in this encounter Results * XR KUB (05/11/2023 9:32 AM CDT) Anatomical Region Laterality Modality Body, Abdomen N/A Computed Radiogr aphy 05/11/2023 10:4 6 AM CDT Impressions 05/11/2023 11:15 AM CDT A single view of the abdomen is submitted for evaluation. Bowel gas pattern is within normal limits. ??Surgical material overlies left lower quadrant likely from bowel resection and anastomosis. ??Moderate amount of stool contents scattered throughout the colon, no evidence of obstruction. Dictated by: Tarik Bales MD The radiology attending physician has personally reviewed this study, and had reviewed and/or edited this written report and agrees with it. Electronically signed by: Javier Noe M.D., Ph.D Narrative 05/11/2023 11:15 AM CDT EXAMINATION: Abdomen, one view. HISTORY: Abdominal pain. COMPARISON: None Procedure Note Javier Noe MD PhD - 05/11/2023 EXAMINATION: Abdomen, one view. HISTORY: Abdominal pain. COMPARISON: None IMPRESSION: A single view of the abdomen is submitted for evaluation. Bowel gas pattern is within normal limits. Surgical material overlies left lower quadrant likely from bowel resection and anastomosis. Moderate amount of stool contents scattered throughout the colon, no evidence of obstruction. Dictated by: Tarik Bales MD The radiology attending physician has personally reviewed this study, and had reviewed and/or edited this written report and agrees with it. Electronically signed by: Javier Noe M.D., Ph.D us Vivian Thornton MD IMG XR PROCEDURES Final Result documented in this encounter Visit Diagnoses Diagnosis Frequent bowel movements Other symptoms involving digestive system documented in this encounter Care Teams Occupational Health Professional Relationship Specialty Start Date End Date Ton Hernandez NP [address] [place] [address] PCP - General Nurse Practitioner 03/08/23 Crispin Shen MD Surgeon Colon and Rectal Surgery 09/09/20 Kemi Schmitz [address] [place] [address] Surgeon Colon and Rectal Surgery 05/16/21 Maria C Zacarias MD [address] [place] [address] [employer] 04/02/23 documented as of this encounter
--- OUTSIDE RECORDS SUMMARY | 2024-08-18 09:53 | XMS_ITS | Encounter Summary ---
Author Organization [facility] Address [address] [place] [address] Care Team Providers Care Surveillance Manager Name Role Phone Crispin Shen MD Unavailable [phone] Kemi Schmitz Unavailable Ton Hernandez NP Primary Care Provider [phone] Maria C Zacarias MD Unavailable [phone] Reason for Visit * Auth/Cert (Routine) Specialty Diagnoses / Procedures Referred By Cecy t Referred To Contact Diagnoses Anal sphincter incontinence Encounter for screening colonoscopy Anal sphincter incontinence [R15.9] Encounter for screening colonoscopy [Z12.11] Procedures AZ COLONOSCOPY FLX DX W/COLLJ SPEC WHEN PFRMD AZ COLONOSCOPY W/BIOPSY SINGLE/MULTIPLE AZ COLSC FLX WITH DIRECTED SUBMUCOSAL NJX ANY SBST AZ COLSC FLX W/REMOVAL LESION BY HOT BX FORCEPS AZ COLSC FLX W/RMVL OF TUMOR POLYP LESION SNARE TQ AZ COLONOSCOPY FLX ABLATION TUMOR POLYP/OTHER LES AZ COLSC FLEXIBLE W/TRANSENDOSCOPIC BALLOON DILAT AZ COLONOSCOPY FLX W/ENDOSCOPIC MUCOSAL RESECTION COLONOSCOPY Referral ID Status Reason Start Date Expiration Date Visits Re quested Visits Authorized [id number] 1 1 Encounter Details Date Type Department Care Team (Late st Contact Info) Description 05/14/2023 8:27 AM CDT Anesthesia Event [facility] Endoscopy at [facility] [address] [place] [address] Dinora Cruz MD [address] [place] [address] Anesthesia Record Procedure Summary Procedure Name Responsible Anesthesiologist Anesthesia Start Time Anesthesia Stop Time COLON BIOPSY (Colon) Dinora Cruz MD 05/14/23 0827 05/14/23 0902 Events Date Time Event Comment 05/14/2023 0741 0827 An Start 0827 An Start Data 0829 In Room 0832 An Data Art 0833 Start Supplemental O2 0833 Patient Positioned Laterally 0833 An Induction The patient was reevaluated immediately before moderate or deep sedation use and before anesthesia induction. 0836 Proc Start 0857 Proc Fin 0858 Out of Room 0902 Handoff to RN I completed my handoff [...] the time of handoff: No value filed. 901 An Stop Meds Name Total lidocaine (cardiac) syringe 2 % 50 mg propofol 70 mg propofol 320.21 mg Lactated Ringer's (LR) infusion 600 mL * Agents No agents on file. * Blood No blood administrations on file. Lines, Drains, and Airways Type Details Placement Removal Peripheral IV Placement Date: 04/21 01/09; Placement Time: 706; Catheter Size: 22 G; Orientation: Right; Location: Antecubital; Site Prep: Chlorhexidine; Insertion Attempts: 2; Patient Tolerance: Tolerated well; Removal Date: 05/14/23; Removal Time: 92005/14/23 07 by Fabiana Irvin RN 05/14/23920 by Fabiana Irvin RN documented in this encounter Social History Tobacco [...] often do you attend chur ch or judaism services? 1 to 4 times per year [...] medical appointments or from getting medications? No 04/0 02/2021 In the past 12 months, has l ack of transportation kept you from meetings, work, or from getting things needed for daily living? 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 Gender Identity Female 11/16/2020 2:58 PM CDT Sexual Orientation Straight 11/16/2020 2: 58 PM CDT documented as of this encounter OR Notes * Anesthesia Postprocedure Evaluation - Dinora Cruz MD - 05/14/2023 9:27 AM CDT Patient: Belem Coto Procedure Summary Date: 05/14/23 Room / Location: [facility] ENDOSCOPY ROOM / [facility] Endoscopy Anesthesia Start: 826 Anesthesia Stop: 901 Procedure: COLON BIOPSY (Colon) Diagnosis: Anal sphincter incontinence Encounter for screening colonoscopy (Anal sphincter incontinence [R15.9]) (Encounter for screening colonoscopy [Z12.11]) Providers: Crispin Shen MD Responsible Provider: Dinora Cruz MD Anesthesia Type: MAC ASA Status: 2 Anesthesia Type: MAC Last vitals BP 110/56 Pulse 83 Temp 36.1 ??C (97 ??F) (Temporal) Resp 15 SpO2 100% Anesthesia Post Evaluation Patient location during evaluation: PACU Patient participation: complete - patient participated Level of consciousness: fully awake Pain management: satisfactory to patient Airway patency: adequate and patent Evidence of recall: no Cardiovascular status: acceptable and hemodynamically stable Respiratory status: acceptable Hydration status: acceptable Pt is: normothermic Nausea/Vomiting status: none No notable events documented. * Anesthesia Preprocedure Evaluation - Dinora Cruz MD - 05/14/2023 7:41 AM CDT Images from the original note were not included. Anesthesia Evaluation Belem Coto is a 52 y.o. 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 Encounter for screening colonoscopy Past Medical History: Diagnosis Date Anxiety Depression [...] ascorbic acid (VITAMIN C) 1,000 mg tablet Past Week -- -- Tyra Crawford MD atomoxetine (STRATTERA) 25 mg capsule Past Week 04/26/23 -- Tyra Crawford MD cholecalciferol (VITAMIN D-3) 2000 unit capsule Past Week -- -- ProviderTyra MD lysine 1,000 mg tablet Past Week -- -- Tyra Crawford MD multivitamin capsule Past Week -- -- Tyra Crawford MD omega-3 fatty acids-fish oil 300-1,000 mg capsule Past Week -- -- ProviderTyra MD turmeric root extract 500 mg capsule Past Week -- -- Tyra Crawford MD zinc 50 mg tablet Past Week -- -- Tyra Crawford MD Current Facility-Administered Medications: Lactated Ringer's (LR) infusion, 30 mL/hr, intravenous, Continuous, Last Rate: 30 mL/hr at 708, 30 mL/hr at 05/14/23 0708 lidocaine PF (XYLOCAINE) 10 mg/mL (1 %) preservative free injection 2-10 mg, 0.2-1 mL, other, Once PRN sodium chloride 0.9% flush 0.5-20 mL, 0.5-20 mL, intra-catheter, Q8H CARO sodium chloride 0.9% flush 0.5-20 mL, 0.5-20 mL, intra-catheter, PRN sodium chloride 0.9% infusion, 30 mL/hr, intravenous, Continuous Facility-Administered Medications Ordered in Other Encounters: diatrizoate [...] Thyroid cancer Mother Anesthesia problems Neg Hx Vitals: 05/14/23 0657 BP: 109/70 Pulse: 81 Resp: 20 Temp: 36 ??C (96.8 ??F) SpO2: 96% PT: No results found for requested labs within last 30 days. INR: No results found for requested labs within last 30 days. APTT: No results found for requested labs within last 30 days. Hgb A1C: No results found for requested labs within last 30 days. CBC RBC: 05/11/2023: 4.57 M/cumm RDW: No results found for requested labs within last 30 days. MCHC: 05/11/2023: 33.5 g/dL MCH: 05/11/2023: 30.2 pg MCV: 05/11/2023: 90.2 fL Hct: 05/11/2023: 41.2 % Hgb: 05/11/2023: 13.8 g/dL WBC: 05/11/2023: 7.8 K/cumm MPV: 05/11/2023: 10.7 fL Platelets: 05/11/2023: 254 K/cumm RDW CV: 05/11/2023: 12.3 % RDW Sd: 05/11/2023: 40.4 fL BMP Glucose: No results found for requested [...] Medical history, medications, and allergies reviewed. Attestation: With today's edits, I endorse the the findings of the H&P dated: 05/14/2023. Airway Exam: Mallampati: II Cervical ROM: FROM Cardiovascular Exam: Rate: regular Rhythm: regular Pulmonary Exam: LCTA, bilat Anesthesia Plan ASA 2 My patient is approved for the Anesthesia Controlled Medication protocol when under care of a [employer] ARCHITECT Planned anesthesia: MAC Induction: Induction: intravenous. Postoperative Plan: No plan for postoperative opioid use. No postoperative mechanical ventilation intended. Patient's planned disposition post procedure is Outpatient. Informed Consent: Discussed plan with [employer] ARCHITECT. Anesthesia plan and risks discussed with patient. Consent and Attending signature: I and/or my designee have discussed the anesthesia plan, benefits, possible alternatives, parental presence at time of induction (if indicated), and clinically relevant risks that may include dental injury, unintentional awareness, and/or other complications. The patient and/or parent/legal guardian understand, and agree to proceed. All questions answered. documented in this encounter Plan of Treatment Not on file documented as of this encounter Visit Diagnoses Not on filedocumented in this encounter Administered Medications Inactive Administered Medications - up to 3 most recent administrations Medication Order MAR Action Action Date Dose Rate Site Lactated Ringer's (LR) infusion 30 mL/hr, intravenous, Continuous, Starting on Sun05/14/23 at 0745, Pre-Op Restarted 05/14/2023 8:55 AM CDT Rate/Dose Verify 05/14/2023 8:27 AM CDT 30 mL/h r New Bag 05/14/2023 7:08 AM CDT 30 mL/hr 30 mL/hr lidocaine (cardiac) (XYLOCAINE) preservative free injection intravenous, As needed, Starting on Sun05/14/23 at 0834, Anesthesia Intra-op, Indications: Ventricular ArrhythmiasIndications:Ventr icular Arrhythmias Given 05/14/2023 8:34 AM CDT 50 mg propofoL (DIPRIVAN) 10 mg/mL IV intravenous, Continuous PRN, Starting on Sun05/14/23 at 0834, Anesthesia Intra-op New Bag 05/14/2023 8:34 AM CDT 120 mcg/kg/min 68.616 mL/hr propofoL (DIPRIVAN) 10 mg/mL IV intravenous, As needed, Starting on Sun05/14/23 at 0835, Anesthesia Intra-op Given 05/14/2023 8:36 AM CDT 20 mg Given 05/14/2023 8:35 AM CDT 50 mg documented in this encounter Care Teams Surveillance Manager Relationship Specialty Start Date End Date Ton Hernandez NP [address] [place] [address] PCP - General Nurse Practitioner 03/08/23 Crispin Shen MD Surgeon Colon and Rectal Surgery 09/09/20 Kemi Schmitz [address] [place] [address] Surgeon Colon and Rectal Surgery 05/16/21 Maria C Zacarias MD [address] [place] [address] [employer] Gastroenterology 04/02/23 documented as of this encounter
--- OUTSIDE RECORDS SUMMARY | 2024-08-18 09:53 | XMS_ITS | Encounter Summary ---
Author Organization [facility] Address [address] [place] [address] Care Team Providers Care Business Taxes Specialist Name Role Phone Crispin Shen MD Unavailable [phone] Kemi Schmitz Unavailable Ton Hernandez NP Primary Care Provider [phone] Maria C Zacarias MD Unavailable [phone] Reason for Visit * Auth/Cert (Routine) Specialty Diagnoses / Procedures Referred By Cecy t Referred To Contact Diagnoses Anal sphincter incontinence Encounter for screening colonoscopy Anal sphincter incontinence [R15.9] Encounter for screening colonoscopy [Z12.11] Procedures NC COLONOSCOPY FLX DX W/COLLJ SPEC WHEN PFRMD NC COLONOSCOPY W/BIOPSY SINGLE/MULTIPLE NC COLSC FLX WITH DIRECTED SUBMUCOSAL NJX ANY SBST NC COLSC FLX W/REMOVAL LESION BY HOT BX FORCEPS NC COLSC FLX W/RMVL OF TUMOR POLYP LESION SNARE TQ NC COLONOSCOPY FLX ABLATION TUMOR POLYP/OTHER LES NC COLSC FLEXIBLE W/TRANSENDOSCOPIC BALLOON DILAT NC COLONOSCOPY FLX W/ENDOSCOPIC MUCOSAL RESECTION COLONOSCOPY Referral ID Status Reason Start Date Expiration Date Visits Re quested Visits Authorized [id number] 1 1 Encounter Details Date Type Department Care Team (Late st Contact Info) Description 05/14/2023 8:15 AM CDT - 05/14/2023 9:00 AM CDT Surgery [facility] Endoscopy at [facility] [address] [place] [address] Crispin Shen MD [id number] [place] [address] COLON BIOPSY Surgery Details Date/Time Status Location OR Service Patient Class Case Class Case Type Trauma Case? 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 Gender Identity Female 11/16/2020 2:58 PM CDT Sexual Orientation Straight 11/16/2020 2: 58 PM CDT documented as of this encounter Last Filed Vital Signs Vital Sign Reading Time Taken Comments Blood Pressure 109/70 05/14/2023 6:57 AM CDT Pulse 81 05/14/2023 6:57 AM CDT Temperature 36 ??C (96.8 ??F) 05/14/2023 6:57 AM CDT Respiratory Rate 20 05/14/2023 6:57 AM CDT Oxygen Saturation 96% 05/14/2023 6:57 AM CDT Inhaled Oxygen Concentration - - Weight - - Height - - Body Mass Index - - documented in this encounter Discharge Instructions * Attachments The following attachments cannot be sent through Care Everywhere. * Colonoscopy (Discharge Care) (Citizen [place]) documented in this encounter Medications at Time of Discharge lysine ,000 mg tablet Take 1,000 mg by mouth [...] or self care documented in this encounter H&P Notes * Christal Phelan MD - 05/14/2023 7:01 AM CDT COLORECTAL SURGERY ENDOSCOPY HISTORY AND PHYSICAL Procedure: Colonoscopy Indication: Screening colonoscopy Last colonoscopy was in 2007, no polyps removed. Denies family hx CRC. Denies history of change in bowel habits, blood in stool, change in appetite, weight loss, abdominal pain. Significant Past Medical History: Allergies: Reviewed in EMR Current Medications: Reviewed in EMR Physical Exam: General: NAD Neuro: Alert and Oriented X 3 Pulmonary: Non-labored breathing Abdomen: Unremarkable ASA Scale: Refer to Anesthesia Record Plan for Sedation: Per Anesthesia I have discussed the risks, benefits, and alternatives in addition to sedation/anesthesia with the patient or his/her contracts representative and have documented his/her understanding of these in the appropriate consent form. Christal Phelan MD Fellow, Colon & Rectal Surgery [facility] in [place] 05/14/2023 7:01 AM Cosigned by Crispin Shen MD at 05/14/2023 8:25 AM CDT documented in this encounter Procedure Notes * Crispin Shen MD - 05/14/2023 8:29 AM CDTAssociated Order(s): COLONOSCOPY [facility] Patient Name: Bethanie Coto Procedure Date: 05/14/2023 8:29 AM Date of : 1970 Admit Type: Outpatient Age: 52 Gender: Female Attending MD: Crispin Shen M.D. Room: [facility] ENDOSCOPY ROOM 02 Note Status: Finalized Procedure: Colonoscopy Indications: Screening for colorectal malignant neoplasm Referring MD: Providers: Crispin Shen M.D. Medicines: Propofol per Anesthesia Complications: No immediate complications. Estimated Blood Loss: Estimated blood loss: none. Procedure: Pre-Anesthesia Assessment: - After reviewing the risks and benefits, the patient was deemed in satisfactory condition to undergo the procedure. - Immediately prior to administration of medications, the patient was re-assessed for adequacy to receive sedatives. The benefits, risks and alternatives of the procedure and sedation were discussed and informed consent was obtained. All questions were answered. Please refer to the signed informed consent document in the medical record. The scope was passed under direct vision. The [id number] Colonoscope was introduced through the anus and advanced to the the cecum, identified by appendiceal orifice and ileocecal valve. The colonoscopy was performed without difficulty. The patient tolerated the procedure well. The quality of the bowel preparation was good. The bowel preparation used was SUPREP. Findings: The perianal and digital rectal examinations were normal. The colon (entire examined portion) appeared normal. Biopsies for histology were taken with a cold forceps from the right colon and left colon for evaluation of microscopic colitis. Impression: - The entire examined colon is normal. Biopsied. Recommendation: - Await pathology results. - Repeat colonoscopy in 10 years for screening purposes. Electronically signed by Kervin Shen Crispin Shen M.D. 05/14/2023 8:59:38 AM Number of Addenda: 0 Note Initiated On: 05/14/2023 8:29 AM Recognized by the [employer] for promoting quality in endoscopy documented in this encounter Miscellaneous Notes * Result Encounter Note - Crispin Shen MD - 05/14/2023 9:55 AM CDT Please send letter to patient. Tell him/her that pathology from colonoscopy shows normal colonic mucosa with no evidence of any microscopic colitis.. Please make sure that the patient follows up for the next colonoscopy in 10 years as recommended. documented in this encounter Plan of Treatment Not on file documented as of this encounter Procedures Procedure Name Priority Date/Time Associated Diagnosis Comments SURGICAL PATHOLOGY Routine 05/14/2023 8: 52 AM CDT Anal sphincter incontinence Encounter for screening colonoscopy COLONOSCOPY 05/14/2023 8:29 AM CDT COLON BIOPSY 05/14/2023 8:29 AM CDT Anal sphincter incontinence Encounter for screening colonoscopy documented in this encounter Results * Surgical pathology (05/14/2023 8:52 AM CDT) Tissue (Colon, Biopsy) 05/14/2023 8:52 AM CDT Narrative PATHOLOGY [facility] - 05/15/2023 4:31 PM CDT EPIC results best viewed via link to PDF [facility] [place] [address] Note to Patients: This report may contain a detailed description of human tissue sent by a health care provider to the laboratory for pathologic evaluation. The content of this report is essential for diagnosis and may provide important critical findings. This information may be unfamiliar to patients to review without a medical professional present. It is advised that the patient review this report in the presence of a health care provider who can answer questions and explain the details. SURGICAL PATHOLOGY REPORT FINAL Patient Name: ?? BETHANIE COTO Gender: ??F : ??1970 (Age: 52) Address: ??[address], [place], [place] ??[address] Hospital #: ??[id number] Taken:05/14/2023 Received:05/14/2023 Reported: 05/15/2023 Patient Type: [facility] SDS ?? Service: Colon/Rectal Surgery Location: Physician(s): ??Crispin Shen M.D. Ton Hernandez R.N. Diagnosis: Colon, random biopsy ? - Colonic mucosa with no significant abnormality. ? - Negative for active inflammation or features of chronic mucosal injury. amwo/05/15/2023 13:04 By this signature, I attest that the above diagnosis is based upon my personal examination of the slides(and/or other material indicated in the diagnosis). Nate Flores MD, PHD Report Electronically Reviewed and Signed Out By ??Nate Flores MD, PHD 05/15/2023 16:31:19 Microscopic Description and Comment: Microscopic examination substantiates the above cited diagnosis. Rubina Zavaleta M.D., PhD History: The patient is a 52-year-old woman presenting with anal sphincter incontinence; encounter for screening colonoscopy. ??Operative procedure: Colon biopsy. Specimen(s) Received: A: Random colon bxs Gross Description: Received in formalin, labeled with the patient? ? s identifiers and random colon biopsies ??and consists of multiple kirby-pink fragment(s) of soft tissue measuring 1.8 x 0.6 x 0.2 cm in aggregate. ?Labeled A1. Jar 0. ?? sxst/05/14/2023 11:39 PA(s): Lolita Awad By this signature, I attest that the above diagnosis is based upon my personal examination of the slides(and/or other material). Addenda/Procedures The performance characteristics of some immunohistochemical stains, fluorescence in-situ hybridization tests and immunophenotyping by flow cytometry cited in this report (if any) were determined by the Surgical Pathology and Flow Cytometry Departments at [facility] as part of an ongoing associate quality engineer program and in compliance with federally mandated regulations drawn from the Clinical Laboratory Improvement Act of 1988 (CLIA '88). ??Some of these tests rely on the use of analyte specific reagents and are subject to specific labeling requirements by the US Food and Drug Administration. ??Such diagnostic tests may only be performed in a facility that is certified by the Department of Health and Human Services as a high complexity laboratory under CLIA '88. ??The FDA has determined that such clearance or approval is not necessary. ??This test is used for clinical purposes. ??It should not be regarded as investigational or for research. ??Nevertheless, federal rules concerning the medical use of analyte specific reagents require that the following disclaimer be attached to the report: This test was developed and its performance characteristics determined by the Surgical Pathology and Flow Cytometry Departments of [facility]. ??It has not been cleared or approved by the U. S. Food and Drug Administration. IMAGES AND SCANNED DOCUMENTS, IF INCLUDED, ONLY VIEWABLE IN PDF VERSION OF REPORT us Crispin Shen MD LAB PATHOLOGY ORDERABLES Final Result PATHOLOGY [facility] 3rd Floor [place], [place] [phone] * COLONOSCOPY (05/14/2023 8:29 AM CDT) Anatomical Region Laterality Modality Other Narrative Procedure Note Crispin Shen MD - 05/14/2023 8:29 AM CDT [facility] Patient Name: Bethanie Coto Procedure Date: 05/14/2023 8:29 AM Date of : 1970 Admit Type: Outpatient Age: 52 Gender: Female Attending MD: Crispin Shen M.D. Room: [facility] ENDOSCOPY ROOM 02 Note Status: Finalized Procedure: [...] The scope was passed under direct vision.The [id number] Colonoscope was introducedthrough the anus and advanced [...] On: 05/14/2023 8:29 AM Recognized by the [employer] for promoting quality in endoscopy us Crispin Shen MD ENDOSCOPY PROCEDURES Final Res ult documented in this encounter Visit Diagnoses Diagnosis Anal sphincter incontinence Encounter for screening colonoscopy Anal sphincter incontinence Encounter for screening colonoscopy documented in this encounter Admitting Diagnoses Diagnosis Anal sphincter incontinence Encounter for screening colonoscopy documented in this encounter Administered Medications Inactive Administered Medications - up to 3 most recent administrations Medication Order MAR Action Action Date Dose Rate Site Lactated Ringer's (LR) infusion 30 mL/hr, intravenous, Continuous, Starting on Sun05/14/23 at 0745, Pre-Op Restarted 05/14/2023 8:55 AM CDT Rate/Dose Verify 05/14/2023 8:27 AM CDT 30 mL/h r New Bag 05/14/2023 7:08 AM CDT 30 mL/hr 30 mL/hr sodium chloride 0.9% flush 0.5-20 mL 0.5-20 mL, intra-catheter, Every 8 hours scheduled, First dose on Sun05/14/23 at 0745, Pre-Procedure (GI), Flush volume based on line type and size. sodium chloride 0.9% flush 0.5-20 mL 0.5-20 mL, intra-catheter, As needed, line care, Starting on Sun05/14/23 at 0708, Pre-Procedure (GI), Flush volume based on line type and size. Flush before and after each use. sodium chloride 0.9% infusion 30 mL/hr, intravenous, Continuous, Starting on Sun05/14/23 at 0745, Pre- Procedure (GI) documented in this encounter Discontinued Medications Medication Sig Discontinue Reason Start Date End Da te cyclobenzaprine (FLEXERIL) 5 mg tablet Take 1 tablet (5 mg total) by mouth 2 (two) times a day as needed for muscle spasms Therapy completed 06/13/2022 05/14/2023 gabapentin (NEURONTIN) 100 mg capsule Take 1 capsule (100 mg total) by mouth 3 (three) times a day Therapy completed 06/13/2022 05/14/2023 LORazepam (ATIVAN) 0.5 mg tablet Take 1 tablet (0.5 mg total) by mouth 2 (two) times a day as needed for anxiety Therapy completed 07/09/2020 05/14/2023 metroNIDAZOLE (FLAGYL) 500 mg tablet Take one tablet at 1pm, 2pm, and 10pm the day before surgery Therapy completed 03/16/2022 05/14/2023 neomycin (MYCIFRADIN) 500 mg tablet Take two tablets by mouth at 1pm, 2pm, and 10pm the day before surgery Therapy completed 03/16/2022 05/14/2023 ondansetron ODT (ZOFRAN-ODT) 8 mg disintegrating tablet Take one tablet at 11am when starting bowel prep, take one tablet as needed every six to eight hours after Therapy completed 03/16/2022 05/14/2023 oxyCODONE (ROXICODONE) 5 mg immediate release tabletIndications:Pain Take 1 tablet (5 mg total) by mouth every 4 (four) hours as needed (intolerable pain) Therapy completed 05/20/2022 05/14/2023 PARoxetine (PAXIL) 10 mg tablet Take 1 tablet (10 mg total) by mouth daily Therapy completed 01/19/2023 05/14/2023 polyethylene glycol (MIRALAX) 17 gram packetIndications:const ipation Take 1 packet (17 g total) by mouth daily as needed for constipation Therapy completed 05/20/2022 05/14/2023 psyllium, aspartame, SF (METAMUCIL SF) 3.4 gram packet Take 1 packet by mouth daily as needed (constipation) Therapy completed 05/20/2022 05/14/2023 sodium, potassium & mag sulfates (SUPREP BOWEL KIT) 17.5-3.13-1.6 gram recon solnIndications:Bowel Evacuation Drink 1 bottle at 6pm the night before procedure. Drink 2nd bottle 4 hours prior to leaving home. Therapy completed 05/06/2023 05/14/2023 topiramate (TOPAMAX) 50 mg tablet Take 1 tablet (50 mg total) by mouth nightly Therapy completed 01/19/2023 05/14/2023 simethicone (GAS-X ORAL) Take by mouth Therapy completed 05/14/2023 documented as of this encounter Active and Recently Administered Medications Times are shown in CDT. Scheduled Medication Order 05/12/2023 05/13/2023 05/14/2023 sodium chloride 0.9% flush 0.5-20 mL 0.5-20 mL, intra-catheter, Every 8 hours scheduled, First dose on 05/14/23 at 0745, Pre-Procedure (GI), Flush volume based on line type and size. 0745 (Due) Continuous Medication Order 05/12/2023 05/13/2023 05/14/2023 Lactated Ringer's (LR) infusion 30 mL/hr, intravenous, Continuous, Starting on Sun05/14/23 at 0745, Pre-Op 0708 (New Bag - Prov ider: Fabiana Irvin RN)0827 (Rate/Dose Verify - Provider: Javier Mayfield CRNA)0854 (Paused - Provider: Javier Mayfield CRNA - Comment: Switch to gravity)0855 (Restarted - Provider: Javier Mayfield CRNA)0921 (Stopped - Provider: Fabiana Irvin RN) sodium chloride 0.9% infusion 30 mL/hr, intravenous, Continuous, Starting on Sun05/14/23 at 0745, Pre-Procedure (GI) 0745 (Due) PRN Medication Order 05/12/2023 05/13/2023 05/14/2023 fentaNYL (SUBLIMAZE) preservative free syringe 50 mcg 50 mcg, intravenous, Once as needed, uncontrolled pain on PACU admission, Starting on Sun05/14/23 at 0903, For 1 dose, Phase I, Then proceed to PACU 1st line analgesic., Indications: Pain lidocaine PF (XYLOCAINE) 10 mg/mL (1 %) preservative free injection 2-10 mg 2-10 mg (0.2-1 mL), other, Once as needed, pain with IV placement, Starting on Sun05/14/23 at 0708, For 1 dose, Pre-Op, Administer volume needed to infiltrate IV site. naloxone (NARCAN) 0.4 mg/mL injection 0.04-0.4 mg 0.04-0.4 mg, intravenous, Once as needed, other, excessive sedation/respiratory depression, Starting on Sun05/14/23 at 0903, For 1 dose, Phase I, Dilute 0.4 mg with 9 mL NS (final concentration 0.04 mg/mL). For respiratory depression (respiratory rate less than 6), administer 0.4 mg IVP over 30 seconds. For excessive sedation administer 0.04 mg (1 mL) every 1 minute until desired level of alertness. For IV, administer over 30 seconds., Indications: Opioid Toxicity ondansetron (ZOFRAN) injection 4 mg 4 mg, intravenous, Administer over 2 Minutes, Once as needed, nausea, vomiting, Starting on Sun05/14/23 at 0903, For 1 dose, Phase I, Proceed to prochlorperazine if ondansetron has been given within the last 6 hours. prochlorperazine (COMPAZINE) injection 5 mg 5 mg, intravenous, Administer over 2 Minutes, Once as needed, nausea, vomiting, Starting on Sun05/14/23 at 0903, For 1 dose, Phase I, If nausea/vomiting not relieved by ondansetron within 30 minutes or if ondansetron has been given within the last 6 hours. sodium chloride 0.9% flush 0.5-20 mL 0.5-20 mL, intra-catheter, As needed, line care, Starting on Sun05/14/23 at 0708, Pre-Procedure (GI), Flush volume based on line type and size. Flush before and after each use. documented in this encounter Orders Medications Ordered That Max ht Not Have Been Administered Count Last Ordered Date First Ordered Date fentaNYL (SUBLIMAZE) preserv ative free syringe 50 mcg 1 05/14/2023 lidocaine PF (XYLOCAINE) 10 mg/mL (1 %) preservative free injection 2-10 mg 1 05/14/2023 naloxone (NARCAN) 0.4 mg/mL injection 0.04-0.4 mg 1 05/14/2023 ondansetron (ZOFRAN) injection 4 mg 1 05/14 prochlorperazine (COMPAZINE) injection 5 mg 1 05/14/2023 sodium chloride 0.9% flush 0.5-20 mL 2 04/21 sodium chloride 0.9% infusion 1 05/14/2023 Diet Count Last Ordered Date First Orde red Date ADULT DISCHARGE DIET 1 05/14/2023 Nursing Count Last Ordered Date First Orde red Date DISCHARGE ACTIVITY 1 05/14/2023 DISCHARGE CALL PROVIDER 1 05/14/2023 documented in this encounter Care Teams Business Taxes Specialist Relationship Specialty Start Date End Date Ton Hernandez NP [address] [place] [phone] PCP - General Nurse Practitioner 03/08/23 Crispin Shen MD Surgeon Colon and Rectal Surgery 09/09/20 Kemi Schmitz [address] [place] [address] Surgeon Colon and Rectal Surgery 05/16/21 Maria C Zacarias MD [address] [place] [address] Statistical Geneticist Gastroenterology 04/02/23 documented as of this encounter
--- OUTSIDE RECORDS SUMMARY | 2024-08-18 09:53 | XMS_ITS | Encounter Summary ---
Author Organization [facility] Address [address] [place] [address] Care Team Providers Care Baling Machine Operator Name Role Phone Crispin Shen MD Unavailable [phone] Kemi Schmitz Unavailable Ton Hernandez NP Primary Care Provider [phone] Maria C Zacarias MD Unavailable [phone] Reason for Visit * Auth/Cert (Routine) Specialty Diagnoses / Procedures Referred By Cecy t Referred To Contact Diagnoses Anal sphincter incontinence Encounter for screening colonoscopy Anal sphincter incontinence [R15.9] Encounter for screening colonoscopy [Z12.11] Procedures WY COLONOSCOPY FLX DX W/COLLJ SPEC WHEN PFRMD WY COLONOSCOPY W/BIOPSY SINGLE/MULTIPLE WY COLSC FLX WITH DIRECTED SUBMUCOSAL NJX ANY SBST WY COLSC FLX W/REMOVAL LESION BY HOT BX FORCEPS WY COLSC FLX W/RMVL OF TUMOR POLYP LESION SNARE TQ WY COLONOSCOPY FLX ABLATION TUMOR POLYP/OTHER LES WY COLSC FLEXIBLE W/TRANSENDOSCOPIC BALLOON DILAT WY COLONOSCOPY FLX W/ENDOSCOPIC MUCOSAL RESECTION COLONOSCOPY Referral ID Status Reason Start Date Expiration Date Visits Re quested Visits Authorized [id number] 1 1 Encounter Details Date Type Department Care Team (Latest Contact Info) Description 05/14/2023 6:14 AM CDT - 05/14/2023 9:55 AM CDT Hospital Encounter [facility] Endoscopy at [facility] [address] [place] [address] Crispin Shen MD [id number] [place] [address] Anal sphincter incontinence; Encounter for screening colonoscopy Discharge Disposition: Discharge to home or self [...] week 11/24/2020 How often do you attend [facility] or sikh services? 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 Gender Identity Female 11/16/2020 2:58 PM CDT Sexual Orientation Straight 11/16/2020 2: 58 PM CDT documented as of this encounter Last Filed Vital Signs Vital Sign Reading Time Taken Comments Blood Pressure 110/56 05/14/2023 9:15 AM CDT Pulse 83 05/14/2023 9:15 AM CDT Temperature 36.1 ??C (97 ??F) 05/14/2023 9:03 AM CDT Respiratory Rate 15 05/14/2023 9:15 AM CDT Oxygen Saturation 100% 05/14/2023 9:15 AM CDT Inhaled Oxygen Concentration - - Weight - - Height - - Body Mass Index - - documented in this encounter Discharge Instructions * Attachments The following attachments cannot be sent through Care Everywhere. * Colonoscopy (Discharge Care) ([place]) documented in this encounter Medications at Time [...] to sedation/anesthesia with the patient or his/her sales support representative and have documented his/her understanding of these in the appropriate consent form. Christal Phelan MD Fellow, Colon & Rectal Surgery [facility] in [place] 05/14/2023 7:01 AM Cosigned by Crispin Shen MD at 05/14/2023 8:25 AM CDT documented in this encounter Procedure Notes * Crispin Shen MD - 05/14/2023 8:29 AM CDTAssociated Order(s): COLONOSCOPY [facility] Patient Name: Bethanie Coto Procedure Date: 05/14/2023 8:29 AM Date of : 1970 Admit Type: Outpatient Age: 52 Gender: Female Attending MD: Crispin Shen M.D. Room: [facility] ENDOSCOPY ROOM 02 Note Status: Finalized Procedure: [...] scope was passed under direct vision. The [id number] Colonoscope was introduced through the anus and [...] On: 05/14/2023 8:29 AM Recognized by the [employer] for promoting quality [...] Biopsy) 05/14/2023 8:52 AM CDT Narrative PATHOLOGY [facility] - 05/15/2023 4:31 PM CDT EPIC results best viewed via link to PDF [facility] [place] [address] Note to Patients: This report may contain [...] PATHOLOGY REPORT FINAL Patient Name: ?? BETHANIE COTOEmil Gender: ??F : ??1970 (Age: 52) Address: ??[address] [place] [address], [place], [place] ??[address] [facility] #: ??[id number] Taken:05/14/2023 Received:05/14/2023 Reported: 05/15/2023 Patient Type: [facility] SDS ?? Service: Colon/Rectal Surgery Location: Physician(s): ??Thai López R.N. Diagnosis: Colon, random biopsy ? - [...] Surgical Pathology and Flow Cytometry Departments at [facility] as part of an ongoing quality control engineer program and in compliance with federally [...] Surgical Pathology and Flow Cytometry Departments of [facility]. ??It has not been cleared or approved by the U. S. Food and Drug Administration. IMAGES AND SCANNED DOCUMENTS, IF INCLUDED, ONLY VIEWABLE IN PDF VERSION OF REPORT us Crispin Shen MD LAB PATHOLOGY ORDERABLES Final Result PATHOLOGY [facility] 3rd Floor MIGUEL Blancas [phone] * COLONOSCOPY (05/14/2023 8:29 AM CDT) Anatomical Region Laterality Modality Other Narrative Procedure Note Crispin Shen MD - 05/14/2023 8:29 AM CDT [facility] Patient Name: Bethanie Coto Procedure Date: 05/14/2023 8:29 AM Date of : 1970 Admit Type: Outpatient Age: 52 Gender: Female Attending MD: Crispin Shen M.D. Room: [facility] ENDOSCOPY ROOM 02 Note Status: Finalized Procedure: [...] The scope was passed under direct vision.The [id number] Colonoscope was introducedthrough the anus and advanced [...] On: 05/14/2023 8:29 AM Recognized by the [employer] for promoting quality [...] infusion 30 mL/hr, intravenous, Continuous, Starting on 05/14/23 at 0745, Pre-Op Restarted 05/14/2023 8:55 AM [...] 05/14/2023 documented in this encounter Care Teams Baling Machine Operator Relationship Specialty Start Date End Date Ton Hernandez NP [address] [place] [address] PCP - General Nurse Practitioner 03/08/23 Crispin Shen MD Surgeon Colon and Rectal Surgery 09/09/20 Kemi Schmitz [address] [place] [address] Surgeon Colon and Rectal Surgery 05/16/21 Maria C Zacarias MD [address] [place] [address] Electric Motor Tester Gastroenterology 04/02/23 documented as of this encounter
--- OUTSIDE RECORDS SUMMARY | 2024-08-18 09:53 | XMS_ITS | Encounter Summary ---
Author Organization [facility] Healthcare Address [address] [place] [address] Care Team Providers Care Merchandise Shopper Name Role Phone Crispin Shen MD Unavailable [phone] Kemi Schmitz Unavailable Ton Hernandez NP Primary Care Provider [phone] Maria C Zacarias MD Unavailable [phone] Encounter Details Date Type Department Care Team (Latest Contact Info) Description 08/07/2023 10:07 AM EMPLOYMENT CLERK - 08/07/2023 11:59 PM EMPLOYMENT CLERK Hospital Encounter [facility] [address] [place] [address] Diagnosis unknown Discharge Disposition: Discharge to home or self [...] any clubs o r organizations such as christianity groups, unions, fraternal or athletic groups, or [...] on file Legal Sex Female 9:36 AM EMPLOYMENT CLERK Gender Identity Female 11/16/2020 2:58 PM CDT Sexual Orientation Straight 11/16/2020 2: 58 PM CDT documented as of this encounter Medications at Time of Discharge lysine 1,000 mg tablet Take 1,000 mg by mouth nightly psyllium, aspartame, SF (METAMUCIL SF) 3.4 gram packet Take 1 packet by mouth franchise field consultant before breakfast turmeric root extract 500 mg [...] 0.3 % ophthalmic solution 02/23/2023 4 omega 4-rlq-iju-fish oil (Fish OiL) 1,000 mg (120 mg-180 [...] Procedure Name Priority Date/Time Associated Diagnosis Comments CT BODY OUTSIDE CONSULT Routine 08/07/2023 10:09 AM EMPLOYMENT CLERK Diagnosis unknown documented in this encounter Results * CT Body Outside Consult (08/07/2023 10:09 AM EMPLOYMENT CLERK) Anatomical Region Laterality Modality Body N/A Computed Tomogra phy 08/07/2023 1:31 PM EMPLOYMENT CLERK Impressions 08/07/2023 1:43 PM EMPLOYMENT CLERK Small fat-containing hernia at the site of prior colostomy takedown in the left lower quadrant. ??No evidence of bowel obstruction. The findings, conclusions and recommendations within this report do not replace the initial findings, conclusions ??and recommendations made at the facility where the study was performed based upon the imaging and clinical condition at that time. ??Comparison with the prior report and clinical history is necessary. ??The provided images may or may not represent the [place] source data set and thus may contain changes that may lower the accuracy of this second-opinion interpretation. Dictated by: Tamy Lanza MD The radiology attending physician has personally reviewed this study, and had reviewed and/or edited this written report and agrees with it. Electronically signed by: Macie Bowman M.D. Narrative 08/07/2023 1:43 PM EMPLOYMENT CLERK EXAMINATION: RADIOLOGY CONSULTATION ON OUTSIDE IMAGING STUDY STUDY INITIALLY PERFORMED: 06/26/2023 at 10:10 AM. TYPE OF STUDY: Multiple CT images of the abdomen and pelvis without contrast are provided at the time of this interpretation. CONTRAST ROUTE: No contrast was administered. The protocol was adequate to address the clinical question. The outside final report was not available at the time of this second opinion interpretation. TYPE OF CONSULTATION: Consult on outside imaging study with images submitted through Outside Image Sharing Service DATE OF CONSULTATION: 08/07/2023 11:17 AM HISTORY: History of rectovaginal fistula, multiple prior osteotomies and revisions now with pain in the site of ostomy. COMPARISON: CT on 12/10/2020 FINDINGS: Limited views of the lower chest demonstrate a calcified subpleural nodule in the right lower lobe. ??No pulmonary effusion no pneumothorax. ??Heart size within normal limits. ??No pericardial effusion. No suspicious hepatic lesion. ??Gallbladder is decompressed. ??There is no biliary dilatation. The adrenal glands are normal bilaterally. ??Kidneys are normal in size without hydronephrosis or renal stones. ??The spleen and pancrease are normal. The stomach is normal. ??There is no evidence of bowel obstruction. Normal caliber of the abdominal aorta. no lymphadenopathy in the abdomen and pelvis. ??No free fluid in the abdomen. ?? Findings of prior colonic resection and left lower quadrant colostomy with subsequent takedown. ??At the site of colostomy takedown there is a small fat-containing hernia just lateral to the left rectus muscle. Bladder is decompressed. ??Enlarged, globular appearance of the uterus is not significantly changed compared to prior exam. ?? Normal adnexa. No aggressive osseous lesions. ??Dextrocurvature of the lumbar spine. Procedure Note Macie Bowman MD - 08/07/2023 EXAMINATION: RADIOLOGY CONSULTATION ON OUTSIDE IMAGING STUDY STUDY INITIALLY PERFORMED: 06/26/2023 at 10:10 AM. TYPE OF STUDY: Multiple CT images of the abdomen and pelvis without contrast are provided at the time of this interpretation. CONTRAST ROUTE: No contrast was administered. The protocol was adequate to address the clinical question. The outside final report was not available at the time of this second opinion interpretation. TYPE OF CONSULTATION: Consult on outside imaging study with images submitted through Outside Image Sharing Service DATE OF CONSULTATION: 08/07/2023 11:17 AM HISTORY: History of rectovaginal fistula, multiple prior osteotomies and revisions now with pain in the site of ostomy. COMPARISON: CT on 12/10/2020 FINDINGS: Limited views of the lower chest demonstrate a calcified subpleural nodule in the right lower lobe. No pulmonary effusion no pneumothorax. Heart size within normal limits. No pericardial effusion. No suspicious hepatic lesion. Gallbladder is decompressed. There is no biliary dilatation. The adrenal glands are normal bilaterally. Kidneys are normal in size without hydronephrosis or renal stones. The spleen and pancrease are normal. The stomach is normal. There is no evidence of bowel obstruction. Normal caliber of the abdominal aorta. no lymphadenopathy in the abdomen and pelvis. No free fluid in the abdomen. Findings of prior colonic resection and left lower quadrant colostomy with subsequent takedown. At the site of colostomy takedown there is a small fat-containing hernia just lateral to the left rectus muscle. Bladder is decompressed. Enlarged, globular appearance of the uterus is not significantly changed compared to prior exam. Normal adnexa. No aggressive osseous lesions. Dextrocurvature of the lumbar spine. IMPRESSION: Small fat-containing hernia at the site [...] images may or may not represent the [place] source data set and thus may contain changes that may lower the accuracy of this second-opinion interpretation. Dictated by: Tamy Lanza MD The radiology attending physician has personally reviewed this study, and had reviewed and/or edited this written report and agrees with it. Electronically signed by: Macie Bowman M.D. Bib Puneet Ward MD IMG CT PROCEDURES Fi nal Result documented in this encounter Visit Diagnoses Diagnosis Diagnosis unknown documented in this encounter Care Teams Merchandise Shopper Relationship Specialty Start Date End Date Ton Hernandez NP [address] [place] [phone] PCP - General Nurse Practitioner 03/08/23 Crispin Shen MD Surgeon Colon and Rectal Surgery 09/09/20 Kemi Schmitz [address] [place] [address] Surgeon Colon and Rectal Surgery 05/16/21 Maria C Zacarias MD [address] [place] [address] Business Teacher Gastroenterology 04/02/23 documented as of this encounter
--- OUTSIDE RECORDS SUMMARY | 2024-08-18 09:53 | XMS_ITS | Encounter Summary ---
Author Organization [facility] Healthcare Address [address] [place] [address] Care Team Providers Care Marine Farmer Name Role Phone Crispin Shen MD Unavailable [phone] Kemi Schmitz Unavailable Ton Hernandez NP Primary Care Provider [phone] Maria C Zacarias MD Unavailable [phone] Encounter Details Date Type Department Care Team (Latest Contact Info) Description 05/14/2023 1:42 PM CDT - 05/14/2023 11:59 PM CDT Hospital Encounter [address] [address] Frequent bowel movements Discharge Disposition: Discharge to [...] often do you attend chur ch or anabaptist services? 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 [address] [place] [address] Slot Operations Manager: Otto Florentino M.D. Ph.D.; CLIA# [id number] Stool 05/14/2023 2:33 PM CDT 05/14/2023 3:43 PM CDT Result [facility] Vivian Thornton MD LAB BODY FLUIDS AND STOOLS ORD ERABLES Final Result [facility] Department [place] [address] * Ova and parasite exam Stool (05/14/2023 2:33 PM CDT) Pathologist [facility] Ova & Parasite exam See Footnote [facility] Comment: SOURCE: STOOL, STLP OVA AND PARASITE, MICROSCOPY, F ?FINAL No parasites seen. Cryptosporidium, Cyclospora, and microsporidia are not readily detected by this method. Single negative specimen does not rule out parasitic infection. Test Performed by: [facility] [address] [address] Slot Operations Manager: Otto Florentino M.D. Ph.D.; CLIA# [id number] Stool 05/14/2023 2:33 PM CDT 05/14/2023 2:57 PM CDT Narrative [facility] - 05/21/2023 9:05 AM CDT Is the patient immunospressed?->No Has the patient had recent travel outside the [place]?->Yes Vivian Thornton MD LAB MICROBIOLOGY - GENERAL ORD ERABLES Final Result [facility] [place] [address] * Cryptosporidium and Giardia antigen assay Stool (05/14/2023 2:33 PM CDT) Giardia Ag Negative Negative [facility] Cryptosporidium Ag Negative Negative [facility] Comment: Interpretive data: Testing performed by the [facility] using an immunoassay that detects Cryptosporidium and Giardia antigens in stool specimens. ??If comprehensive examination for ova and parasites is required, please request Ova and Parasite Examination . Stool 05/14/2023 2:33 PM CDT 05/14/2023 2:55 PM CDT Vivian Thornton MD LAB MICROBIOLOGY - GENERAL ORD ERABLES Final Result Performing Organization Address City/[facility] Co de Phone Number JAZZ [facility] Department [place] [address] documented in this encounter Visit Diagnoses Diagnosis Frequent bowel movements Other symptoms involving digestive system documented in this encounter Care Teams Marine Farmer Relationship Specialty Start Date End Date Ton Hernandez NP [address] [place] [phone] PCP - General Nurse Practitioner 03/08/23 Crispin Shen MD Surgeon Colon and Rectal Surgery 09/09/20 Kemi Schmitz [address] [place] [address] Surgeon Colon and Rectal Surgery 05/16/21 Maria C Zacarias MD [address] [place] [address] Nurse Plastics Gastroenterology 04/02/23 documented as of this encounter
--- OUTSIDE RECORDS SUMMARY | 2024-08-18 09:53 | XMS_ITS | Encounter Summary ---
Author Organization [facility] Address [address] [facility] [address] [place] [address] Phone Care Team Providers Care Direct Response Consultant Name Role Phone Crispin Shen MD Unavailable [phone] Kemi Schmitz Unavailable Ton Hernandez NP Primary Care Provider [phone] Maria C Zacarias MD Unavailable [phone] Reason for Visit * Consultation (Routine) - Closed Specialty Diagnoses / Procedures Referred By Cecy t Referred To Contact Gastroenterology Diagnoses Irritable bowel syndrome, unspecified type Crispin Shen MD [address] [facility] [phone] [place] [address] Phone: tel: fax: [facility] (All Locations) Referral ID Status Reason Start Date Expiration Date V isits Requested Visits Authorized [id number] Closed Specialty Services Required 02/15/2023 03/16/2024 12 12 Encounter Details Date Type Department Care Team (Late st Contact Info) Description 05/11/2023 8:00 AM CDT Office Visit [facility] Gastroenterology [address] [facility] 12th [place] [address] [place] [id number] Vivian Thornton MD [address] [place] [address] Frequent bowel movements (Primary Dx); Irritable bowel syndrome, unspecified type Social History [...] How often do you attend chur or adventist services? 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 Gender Identity Female 11/16/2020 2:58 PM CDT Sexual Orientation Straight 11/16/2020 2: 58 PM CDT documented as of this encounter Last Filed Vital Signs Vital Sign Reading Time Taken Comments Blood Pressure 122/85 05/11/2023 7:57 AM CDT Pulse 65 05/11/2023 7:57 AM CDT Temperature 36.6 ??C (97.8 ??F) 05/11/2023 7:57 AM CD T Respiratory Rate - - Oxygen Saturation - - Inhaled Oxygen Concentration - - Weight 95.3 kg (210 lb) 05/11/2023 7:57 AM CDT Height 177.8 cm (5' 10 ) 05/11/2023 7:57 AM CDT Body Mass Index 30.13 05/11/2023 7:57 AM CDT documented in this encounter Progress Notes * Vivian Thornton MD - 05/11/2023 8:00 AM CDT Images from the original note were not included. [facility] OF [facility] DIV[facility] OF GASTROENTEROLOGY Clinic Address: [address] [place] [address], [address] , [place] [address] Mailing Address: Greta Morales, [place] [address], [place] [address] Consult Note NAME: Belem Coto : 1970 DOS: 05/11/2023 Reason for referral: diarrhea Consult requested by: Crispin Shen MD Primary Care Physician: Ton Hernandez NP Subjective Chief complaint: diarrhea HPI Ms. Coto is a 52 y.o. female with PMH of rectovaginal/anal vaginal fistula, s/p repair, colostomy s/p takedown, presents for evaluation of chronic diarrhea. Long standing history of symptoms Loose stool 4-5 times a day, pasty to loose , foods such as ice cream, lettuce,fried food make it worse, sometimes constipation , takes 2 immodium daily , feels constipated after wards Symptoms Worse with stress, also has intermittent fecal incontinence Has Bloating She reports that she had a Vaginal tear after delivery , that probably led to fistula formation? No previous EGD Colonoscopy several years ago, records not available CT 11/2020 Postsurgical changes of anovaginal fistula repair with right gracilis rotational flap. 2. Cellulitis of the right medial thigh with 4.0 x 2.5 cm fluid collection in the gracilis space with thin rim enhancement. This likely represents a seroma with or without superinfection. Patient Active Problem List Diagnosis Rectovaginal fistula Anal fistula Vaginal fistula Colostomy in place (CMS/[facility]) ([facility]) Anal sphincter incontinence Encounter for screening colonoscopy Past Medical History: Diagnosis Date Anxiety Depression Obesity Past Surgical History: Procedure Laterality Date ABDOMINOPLASTY 2010 APPENDECTOMY 1977 COLONOSCOPY 2008 COLOSTOMY 04/18/2020 ENDOMETRIAL ABLATION 2010 [...] anesthesia, anal fistula plug treatment of fistula. Current Outpatient Medications: ascorbic acid (VITAMIN C) 1,000 mg tablet, Take 1 tablet (1,000 mg total) by mouth nightly, Disp: ,Rfl: atomoxetine (STRATTERA) 25 mg capsule, 2 capsules (50 mg total) daily, Disp: , Rfl: cholecalciferol (VITAMIN D-3) 2000 unit capsule, Take 1 capsule (2,000 Units total) by mouth nightly, Disp: , Rfl: lysine 1,000 mg tablet, Take 1,000 mg by mouth nightly , Disp: , Rfl: multivitamin capsule, Take 1 capsule by mouth nightly, Disp: , Rfl: omega-3 fatty acids-fish oil 300-1,000 mg capsule, Take 1 capsule (1 g total) by mouth nightly, Disp: , Rfl: turmeric root extract 500 mg capsule, Take 500 mg by mouth nightly , Disp: , Rfl: cyclobenzaprine (FLEXERIL) 5 mg tablet, Take 1 tablet (5 mg total) by mouth 2 (two) times a day as needed for muscle spasms (Patient not taking: Reported on 02/13/2023), Disp: 30 tablet, Rfl: 0 gabapentin (NEURONTIN) 100 mg capsule, Take 1 capsule (100 mg total) by mouth 3 (three) times a day(Patient not taking: Reported on 02/13/2023), Disp: 30 capsule, Rfl: 0 LORazepam (ATIVAN) 0.5 mg tablet, Take 1 tablet (0.5 mg total) by mouth 2 (two) times a day as needed for anxiety (Patient not taking: Reported on 05/11/2023), Disp: , Rfl: metroNIDAZOLE (FLAGYL) 500 mg tablet, Take one tablet at 1pm, 2pm, and 10pm the day before surgery (Patient not taking: Reported on 05/30/2022), Disp: 3 tablet, Rfl: 0 neomycin (MYCIFRADIN) 500 mg tablet, Take two tablets by mouth at 1pm, 2pm, and 10pm the day beforesurgery (Patient not taking: Reported on 05/30/2022), Disp: 6 tablet, Rfl: 0 ondansetron ODT (ZOFRAN-ODT) 8 mg disintegrating tablet, Take one tablet at 11am when starting bowel prep, take one tablet as needed every six to eight hours after (Patient not taking: Reported on 05/30/2022), Disp: 3 tablet, Rfl: 0 oxyCODONE (ROXICODONE) 5 mg immediate release tablet, Take 1 tablet (5 mg total) by mouth every 4 (four) hours as needed (intolerable pain) (Patient not taking: Reported on 05/30/2022), Disp: 15 tablet, Rfl: 0 PARoxetine (PAXIL) 10 mg tablet, Take 1 tablet (10 mg total) by mouth daily (Patient not taking: Reported on 05/11/2023), Disp: , Rfl: polyethylene glycol (MIRALAX) 17 gram packet, Take 1 packet (17 g total) by mouth daily as needed for constipation (Patient not taking: Reported on 05/30/2022), Disp: 30 packet, Rfl: 0 psyllium, aspartame, SF (METAMUCIL SF) 3.4 gram packet, Take 1 packet by mouth daily as needed (constipation) (Patient not taking: Reported on 05/30/2022), Disp: 30 packet, Rfl: 0 simethicone (GAS-X ORAL), Take by mouth (Patient not taking: Reported on 05/11/2023), Disp: , Rfl: sodium, potassium & mag sulfates (SUPREP BOWEL KIT) 17.5-3.13-1.6 gram recon soln, Drink 1 bottle at 6pm the night before procedure. Drink 2nd bottle 4 hours prior to leaving home. (Patient not taking: Reported on 05/11/2023), Disp: 354 mL, Rfl: 0 topiramate (TOPAMAX) 50 mg tablet, Take 1 tablet (50 mg total) by mouth nightly (Patient not taking: Reported on 05/11/2023), Disp: , Rfl: zinc 50 mg tablet, Take 50 mg by mouth nightly , Disp: , Rfl: No current facility-administered medications for this visit. Facility-Administered Medications Ordered in Other Visits: diatrizoate meglumine-diatrizoate sodium (GASTROGRAFIN/-GASTROVIEW) 66-10 % solution 60 mL, 60 mL, oral, Once in imaging, Crispin Shen MD No Known Allergies Family History Problem Relation Age of Onset Thyroid cancer Mother Anesthesia problems Neg Hx Social History Tobacco Use Smoking status: Never Smokeless tobacco: Never Substance and Sexual Activity Drug use: Never Sexual activity: Defer Alcohol Use: Not At Risk (05/18/2022) AUDIT-C Frequency of Alcohol Consumption: Never Average Number of Drinks: Not on file Frequency of Binge Drinking: Not on file ROS As outlined in HPI. All other systems negative. Objective Vital Signs BP 122/85 Pulse 65 Temp 36.6 ??C (97.8 ??F) Ht 177.8 cm (5' 10 ) Wt 95.3 kg (210 lb) BMI 30.13 kg/m?? Physical Exam GENERAL: Well-appearing, in no acute distress. HEENT: NC/AT/MATT NECK: Supple without lymphadenopathy. LUNGS: Clear to auscultation bilaterally. CARDIOVASCULAR: Regular rate and rhythm with no murmur. ABDOMEN: soft, non-tender; bowel sounds normal; no masses, no organomegaly EXTREMITIES: No clubbing, cyanosis or edema SKIN: No rash or jaundice. NEUROLOGIC: Grossly nonfocal on simple observation with normal insight, memory, affect, and orientation, and no focal weakness evident Results: Labs Lab Results Component Value Date WBC 8.9 05/20/2022 HGB 10.2 (L) 05/20/2022 HCT 29.5 (L) 05/20/2022 MCV 91.0 05/20/2022 LABPLAT 162 05/20/2022 Lab Results Component Value Date SODIUM 144 05/20/2022 POTASSIUM 4.2 05/20/2022 CHLORIDE 106 05/20/2022 CO2 31 05/20/2022 BUNSER 9 05/20/2022 CREATININE 0.76 05/20/2022 GLUCOSE 113 05/20/2022 CALCIUM 8.6 05/20/2022 No results found for: PROT , ALBUMIN , BILITOT , ALKPHOS , GGT , AST , ALT Assessment/Plan 52 y.o. female with PMH of rectovaginal/anal vaginal fistula, s/p repair, colostomy s/p takedown, presents for evaluation of chronic diarrhea and fecal incontinence Chronic diarrhea: will check labs and stool studies,including calpro, she is already scheduled for colonoscopy with biopsies with CRS. Patient will notify us once procedure complete so we can review records. Discussed in detail regarding diet, advised to stop drinking diet soda, discussed low FODMAP diet, avoid processed food, advised to start a fiber supplement daily. FI: could be related to sphincter related causes in the setting of h/o sphincter injury c/b fistulawhich is now s/p repair x 3. Discussed that once rest of the workup complete, can consider ARM for further evaluation, will benefit from pelvic PT with biofeedback. Return to clinic in 3-4 months Vivian Thornton MD Rn Circulatingcompensation and benefits analyst [place] [address] [place] [address] documented in this encounter Plan of Treatment Not on file documented as of this encounter Results * Cryptosporidium and Giardia antigen assay Stool (05/14/2023 2:33 PM CDT) Giardia Ag Negative Negative JAZZ VALENTIN Cryptosporidium Ag Negative Negative JAZZ VALENTIN Comment: Interpretive data: Testing performed by the [facility] using an immunoassay that detects Cryptosporidium and Giardia antigens in stool specimens. ??If comprehensive examination for ova and parasites is required, please request Ova and Parasite Examination . Stool 05/14/2023 2:33 PM CDT 05/14/2023 2:55 PM CDT Vivian Thornton MD LAB MICROBIOLOGY - GENERAL ORD ERABLES Final Result [facility] Department [place] [address] * Ova and parasite exam Stool (05/14/2023 2:33 PM CDT) Ova & Parasite exam See Footnote JAZZ [facility] Comment: SOURCE: STOOL, STLP OVA AND PARASITE, MICROSCOPY, F ?FINAL No parasites seen. Cryptosporidium, Cyclospora, and microsporidia are not readily detected by this method. Single negative specimen does not rule out parasitic infection. Test Performed by: [facility] - [address] [address] Director Biologics: Otto Florentino M.D. Ph.D.; CLIA# [id number] Stool 05/14/2023 2:33 PM CDT 05/14/2023 2:57 PM CDT Narrative JAZZ VALENTIN - 05/21/2023 9:05 AM CDT Is the patient immunospressed?->No Has the patient had recent travel outside the [place]?->Yes Vivian Thornton MD LAB MICROBIOLOGY - GENERAL ORD ERABLES Final Result Performing Organization Address City/[facility] Co de Phone Number JAZZ [facility] [place] [address] * Calprotectin, fecal (05/14/2023 2:33 PM CDT) Calprotectin, fecal <50.0 <50.0 (Normal) mcg/g [facility] Comment: Test Performed by: [facility] [address] [place] [address] Director Biologics: Otto Florentino M.D. Ph.D.; IA# [id number] Stool 05/14/2023 2:33 PM CDT 05/14/2023 3:43 PM CDT Vivian Thornton MD LAB BODY FLUIDS AND STOOLS ORD ERABLES Final Result Performing Organization Address [facility] de Phone Number [facility] [place] [address] * XR KUB (05/11/2023 9:32 AM CDT) [...] Electronically signed by: Javier Noe M.D., Ph.D Result Sharon Thornton MD IMG XR PROCEDURES Final Result * Tissue transglutaminase IgA (TGG-IgA Ab) (05/11/2023 9:12 AM CDT) TTG ab, IgA <0.5 <=14.9 units/mL [facility] Comment: Interpretive data Negative: <15 units/mL Positive: > or equal to 15 units/mL Current interpretive data was last revised on 2016. Blood 05/11/2023 9:12 AM CDT 05/11/2023 9:42 AM CDT us Vivian Thornton MD LAB BLOOD ORDERABLES Final Res ult Performing Organization Address [facility] de Phone Number [facility] Department [place] [address] * IgA (05/11/2023 9:12 AM CDT) Immunoglobulin A 156.0 70.0 - 400.0 mg/dL [facility] Blood 05/11/2023 9:12 AM CDT 05/11/2023 9:42 AM CDT us Vivian Thornton MD LAB BLOOD ORDERABLES Final Res ult Performing Organization Address [facility]/State/ZIP Co de Phone Number [facility] Department [place] [address] * Iron profile w/ IBC (05/11/2023 9:12 AM CDT) [facility] Iron 61 35 - 145 mcg/dL [facility] TIBC 269 250 - 400 mcg/dL [facility] Transferrin saturation 23 20 - 50 % [facility] Blood 05/11/2023 9:12 AM CDT 05/11/2023 9:42 AM CDT Vivian Thornton MD LAB BLOOD ORDERABLES Final Res ult Performing Organization Address [facility]/ZIP Co de Phone Number [facility] [place] [address] * Ferritin (05/11/2023 9:12 AM CDT) [facility] Ferritin 81 13 - 150 ng/mL [facility] Blood 05/11/2023 9:12 AM CDT 05/11/2023 9:42 AM CDT Vivian Thornton MD LAB BLOOD ORDERABLES Final Res ult Performing Organization Address [facility]/ZIP Co de Phone Number [facility] Department [place] [address] * CBC without differential (05/11/2023 9:12 AM CDT) [facility] WBC 7.8 3.8 - 9.9 K/cumm [facility] Hgb 13.8 11.9 - 15.5 g/dL [facility] Hct 41.2 35.6 - 45.5 % [facility] Plt 254 150 - 400 K/cumm [facility] MPV 10.7 9.1 - 12.3 fL [facility] RBC 4.57 3.90 - 5.20 M/cumm [facility] MCV 90.2 81.3 - 96.4 fL [facility] MCH 30.2 27.1 - 33.3 pg [facility] MCHC 33.5 32.3 - 35.7 g/dL [facility] RDW CV 12.3 11.1 - 14.9 % [facility] RDW SD 40.4 35.7 - 48.1 fL [facility] NRBC abs 0.00 0.00 - 0.01 K/cumm [facility] Blood 05/11/2023 9:12 AM CDT 05/11/2023 9:42 AM CDT us Vivian Thornton MD LAB BLOOD ORDERABLES Final Res ult [facility] Department [place] [address] documented in this encounter Visit Diagnoses Diagnosis Frequent bowel movements- Primary Other symptoms involving digestive system Irritable bowel syndrome, unspecified type Frequent bowel movements Other symptoms involving digestive system Frequent bowel movements Other symptoms involving digestive system documented in this encounter Historical Medications * This list may reflect changes made after this encounter. atomoxetine (STRATTERA) 25 mg capsule 2 capsules (50 mg total) daily 04/26/2023 09/11/2023 added in this encounter Orders Outpatient Referral Count Last Ordered Date Fir st Ordered Date AMB REFERRAL TO GASTROENTEROLOGY 1 05/11/20 documented in this encounter Care Teams Direct Response Consultant Relationship Specialty Start Date End Date Ton Hernandez NP [address] [place] [address] PCP - General Nurse Practitioner 03/08/23 Crispin Shen MD Surgeon Colon and Rectal Surgery 09/09/20 Kemi Schmitz [address] [place] [address] Surgeon Colon and Rectal Surgery 05/16/21 aMria C Zacarias MD [address] [place] [address] [employer] [facility] Gastroenterology 04/02/23 documented as of this encounter
--- OUTSIDE RECORDS SUMMARY | 2024-08-18 09:53 | XMS_ITS | Encounter Summary ---
Author Organization [facility] Address [address] [place] [address] Phone Care Team Providers Care Refrigeration Unit Repairer Name Role Phone Crispin Shen MD Unavailable [phone] Kemi Schmitz Unavailable Ton Hernandez NP Primary Care Provider [phone] Maria C Zacarias MD Unavailable [phone] Reason for Visit * Reason Onset Date Comments Colonoscopy 05/08/2023 Encounter Details Date Type Department Care Team (Late st Contact Info) Description 05/08/2023 Telephone [facility] [address] [place] [phone] Zukic, Fatuma, RMA Colonoscopy Social History Tobacco Use Types Packs/Day Years [...] often do you attend chur ch or hoahaoism services? 1 to 4 times per year 11/24/2020 Do you belong to any clubs o r organizations such as spiritism groups, unions, fraSoapets or athletic groups, or school groups? 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 Patient received Instruction letter Received via [employer] Reviewed Letter: Yes Responsible individual available for day of procedure: Yes Bowel Prep: Suprep Is patient taking blood thinners? No Confirmed arrival time of 6:45 am at [facility], report to 1st Floor [address]. Patient was made aware of current visitor policy and verbalized understanding. documented in this encounter Plan of Treatment Not on file documented as of this encounter Visit Diagnoses Not on filedocumented in this encounter Care Teams Refrigeration Unit Repairer Relationship Specialty Start Date End Date Ton Hernandez NP [address] [place] [phone] PCP - General Nurse Practitioner 03/08/23 Crispin Shen MD Surgeon Colon and Rectal Surgery 09/09/20 Kemi Schmitz [address] [place] [address] Surgeon Colon and Rectal Surgery 05/16/21 Maria C Zacarias MD [address] [place] [address] Micro Photographer Gastroenterology 04/02/23 documented as of this encounter
--- OUTSIDE RECORDS SUMMARY | 2024-08-18 09:53 | XMS_ITS | Encounter Summary ---
Author Organization [facility] Address [address] [facility] [address] [place] [address] Phone Care Team Providers Care Printing Technician Name Role Phone Crispin Shen MD Unavailable [phone] Kemi Schmitz Unavailable No, Physician Primary Care Provider [phone] Reason for Visit * Reason Comments Post-op Visit Staple removal * Consultation (Routine) - Closed Specialty Diagnoses / Procedures Referred By Cecy t Referred To Contact Surgery / Colon and Rectal Surgery Diagnoses Rectovaginal fistula Kaitlyn Bowen MD [address] [place] [address] Phone: tel: fax: Crispin Shen MD [address] [facility] [phone] [place] [address] Phone: tel: fax: Referral ID Status Reason Start Date Expiration Date V isits Requested Visits Authorized [id number] Closed Specialty Services Required 02/02/2022 02/02/2023 12 12 Encounter Details Date Type Department Care Team (Late st Contact Info) Description 05/30/2022 8:15 AM CDT Office Visit [facility] Department of Surgery, Section of Colon and Rectal Surgery [address], [place] [address] Crispin Shen MD [address] [facility] [phone] [place] [address] (CMS/HCC) (HCC) (Primary Dx) Social History Tobacco [...] often do you attend chur ch or orthodox services? 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 Gender Identity Female 11/16/2020 2:58 PM CDT Sexual Orientation Straight 11/16/2020 2: 58 PM CDT documented as of this encounter Last Filed Vital Signs Vital Sign Reading Time Taken Comments Blood Pressure 125/84 05/30/2022 8:23 AM CDT Pulse 86 05/30/2022 8:23 AM CDT Temperature 36.1 ??C (97 ??F) 05/30/2022 8:23 AM CDT Respiratory Rate - - Oxygen Saturation - - Inhaled Oxygen Concentration - - Weight 94.3 kg (208 lb) 05/30/2022 8:23 AM CDT Height 177.8 cm (5' 10 ) 05/30/2022 8:23 AM CDT Body Mass Index 29.84 05/30/2022 8:23 AM CDT documented in this encounter Progress Notes * Crispin Shen MD - 05/30/2022 8:15 AM CDT Colorectal Post-operative Visit Patient ID: Belem Smith is a 51 y.o. female who is two weeks out from a colostomy closure. She had a three day. Last week where she had severe crampy abdominal pain. That ended last . Since that time, she has felt well. She has had a little bit of drainage from her wound. Her bowel movements are normal. Physical Exam: There is a little bit of skin separation at the lateral aspect of the colostomy closure site. I took out the ashwin and packed that area. There is no cellulitis. Assessment and Plan: Ms. Smith is doing well. I advised her to get on fiber. She is going to pack the wound at home. Iwill see her back in two weeks to see how she is doing. 05/30/2022 Crispin Shen MD This note was created in part with the assistance of [employer]worx voice recognition software. Tire Beader Maker variances and error may occur. Not every sentence has been reviewed in its entirety. For questions about the documentation above, please contact Dr. Shen. documented in this encounter Plan of Treatment Not on file documented as of this encounter Visit Diagnoses Diagnosis Colostomy in place (CMS/HCC) ([facility])- Primary Colostomy status documented in this encounter Historical Medications * This list may reflect changes made after this encounter. simethicone (GAS-X ORAL) Take by mouth 05/14/2023 added in this encounter Care Teams Printing Technician Relationship Specialty Start Date End Date No, Physician PCP - General 05/22/22 03/07/23 Crispin Shen MD Surgeon Colon and Rectal Surgery 09/09/20 Kemi Schmitz [address] [facility] [place] [address] Surgeon Colon and Rectal Surgery 05/16/21 documented as of this encounter
--- OUTSIDE RECORDS SUMMARY | 2024-08-18 09:53 | XMS_ITS | Encounter Summary ---
Author Organization [facility] Healthcare Address [address] [place] [address] Care Team Providers Care Mobile Therapist Name Role Phone Crispin Shen MD Unavailable [phone] Kemi Schmitz Unavailable Ton Hernandez NP Primary Care Provider [phone] Maria C Zacarias MD Unavailable [phone] Encounter Details Date Type Department Care Team (Latest Contact Info) Description 09/11/2023 4:30 PM PROCUREMENT SERVICES MANAGER Pre-Admission Testing [facility] Center for Preoperative Assessment and Planning [facility] ([facility]) [address] [place] [id number] Preoperative testing (Primary Dx) Anesthesia Record Procedure Summary Procedure Name Responsible [...] No value filed. 1349 An Stop Meds * Agents No agents on file. * [...] intubation ; Removal Date: 09/20/23; Removal Time: 1312 09/20/23 1200 by Andreia Stark CRNA 09/20/23 1312 by Andreia Stark CRNA RETIRED Surgical Site 09/20/23; 1239; Le ft; Abdomen; 07/22/24 (Retired LDA, Removed/Completed by [employer] with LDA Utility); 1213 (Retired LDA, Removed/Completed by [employer] with LDA Utility) 09/20/23 1239 by Toño [...] on file Legal Sex Female 9:36 AM PROCUREMENT SERVICES MANAGER Gender Identity Female 11/16/2020 2:58 PM CDT Sexual Orientation Straight 11/16/2020 2: 58 PM CDT documented as of this encounter Last Filed Vital Signs Vital Sign Reading Time Taken Comments Blood Pressure 128/80 09/11/2023 4:56 PM PROCUREMENT SERVICES MANAGER Pulse 73 09/11/2023 4:55 PM PROCUREMENT SERVICES MANAGER Temperature - - Respiratory Rate 18 09/11/2023 4:55 PM PROCUREMENT SERVICES MANAGER Oxygen Saturation 100% 09/11/2023 4:55 PM PROCUREMENT SERVICES MANAGER Inhaled Oxygen Concentration - - Weight 90 kg (198 lb 6.6 oz) 09/11/2023 4:56 PM PROCUREMENT SERVICES MANAGER Height 177.8 cm (5' 10 ) 09/11/2023 4:56 PM PROCUREMENT SERVICES MANAGER Body Mass Index 28.47 09/11/2023 4:56 PM PROCUREMENT SERVICES MANAGER documented in this encounter Miscellaneous Notes * Perioperative Nursing Note - Erica Perdomo RN - 09/11/2023 4:30 PM PROCUREMENT SERVICES MANAGER Center for Preoperative Assessment and Planning Perioperative Nursing Note CPAP Clinic at [facility] ([facility]) Date: 09/11/23 This assessment was completed with the patient. Vitals: 09/11/23 1655 09/11/23 1656 BP: 131/78 128/80 BP Location: Left arm Right arm Patient Position: Sitting Sitting Pulse: 73 Resp: 18 SpO2: 100% Weight: 90 kg (198 lb 6.6 oz) Height: 177.8 cm (5' 10 ) CHEST CIRCUMFERENCE: Social History Tobacco Use Smoking Status Never Smokeless Tobacco Never Substance and Sexual Activity Drug Use Never Alcohol Use Q2: How many drinks containing alcohol do you have on a typical day when you are drinking?: Patientdoes not drink Outpatient Medications Marked as Taking for the 09/11/23 encounter (Pre-Admission Testing) with [facility] CPAP NURSE Medication Sig Dispense Refill lysine 1,000 mg tablet Take 1,000 mg by mouth nightly psyllium, aspartame, SF (METAMUCIL SF) 3.4 gram packet Take 1 packet by mouth police service technician before breakfast turmeric root extract 500 mg capsule Take 500 mg by mouth nightly Implants Type Not Specified [employer] [id number] Biodesign Surgisis 9.5x.6cm Set Fistula Plug Without Button [place] - [id number] - Implanted Rectum Inventory item: [employer] Biodesign Surgisis 9.5x.6cm Set Fistula Plug Without Button [place] [id number] Model/Cat number: [id number] Motion Graphics 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 : No Have you eaten < 50% of normal in the past 2 weeks without trying?: No Have you experienced any of the following in the past month?: No Symptom Score: 0 Has your activity level decreased over the past 6 months or do you use an assistive device such as a walker, cane, or wheelchair?: No Total Score: 0 PATIENT CARE PLANNING Advance Directives (For Healthcare) Have you reviewed your Advance Directive and is it valid for this stay?: Yes Advance Directive: Patient has advance directive, copy not in chart Advance Directive not in Chart: Copy requested from family Assistive Devices/DME: None Discharge Planning Type of Residence: Private residence Living Arrangements: Spouse/significant other Support Systems: Spouse/significant other Patient expects to be discharged to:: Private residence [facility] [place] NO ADDITIONAL COMMENTS/ FOLLOW UP UREMENT SERVICES MANAGER * Pre-Procedure Instructions - Erica Perdomo RN - 09/11/2023 4:30 PM PROCUREMENT SERVICES MANAGER CENTER FOR PREOPERATIVE ASSESSMENT AND PLANNING (CPAP) PRE-SURGICAL NURSING INSTRUCTIONS Clinic Assessment General Information Discussed with Patient: Surgery location provided to patient. Arrival time and surgical time will be provided to the patient by their surgeon. You should wear clothing that is clean, loose, comfortable and easy to get in and out of on the dayof surgery. Remove nail coverings, artificial nails and nail nepali prior to the day of surgery. You should leave your valuables and any jewelry at home. No metal or piercings are allowed in the operating room. You should bring your insurance card, a photo ID (example: Energy Efficiency Finance Manager's License) and a method of payment for any insurance copay, deductible or copay for discharge medications. You should bring a complete, up-to-date, list of all your medications on the day of surgery, including any over the counter medications or supplements you may take. Please note on your medication list, the last date & time you took each medication. The healthcare team, on the day of surgery, will ask for this information. You should bring your Advanced Directive and/or Living Will with you on the day of surgery if you have not verified a copy is already in your Epic Chart. If you are having surgery at [facility], please arrive on the day of surgery with the name and phone number of your local 24 hour pharmacy. Due to evening discharges, your routine pharmacy may be closed. In order to obtain your prescriptions that evening, your surgeon may need to send prescriptions to this pharmacy or have you take prescriptions to this pharmacy when you are discharged. Without this information, you may not be able to obtain your prescriptions that evening. PREVENTING INFECTION (DECOLONIZATION): Decolonization is the use of a topical antiseptic soap and sometimes a nasal ointment to remove bacteria (germs) from the skin's surface. Antiseptic soap: Chlorhexidine gluconate or CHG (brand name: Hibiclens??) Before surgery, your entire body must be thoroughly cleaned. CHG helps to reduce the bacteria on your skin. You may be given one or more bottles of CHG or you may be asked to obtain from your preferred pharmacy. Be sure to ask your pharmacist if you need help finding this product. Nasal ointment: Mupirocin (brand name: Bactroban)- This will only be ordered for the 5 Day Bathing Protocol. Your surgeon may also prescribe a topical ointment that is rubbed inside each of the nostrils to reduce the bacteria in your nose. Mupirocin ointment requires a prescription. If needed, it will be prescribed by your surgeon and obtained from your preferred pharmacy. SHOWERING WITH ANTISEPTIC SOAP (CHG) What You Need For Each Shower 60 mL (?? cup) of CHG 2 clean washcloths Below is the Pre-Surgical Bathing Protocol you should follow for your surgery. If your surgeon provides you different bathing instructions, please follow your surgeon's orders. 2 Day CHG Bathing Protocol (no nasal ointment) The following bathing instructions were discussed with the patient. Patient provided detailed scrubinstructions via A Guide for Patients Having Surgery: Your Pathway to Excellent Care, pages 7-10. Patients may also access the guide via the web link: [email or web address]. Patient stated understanding of the bathing instructions. Other Important Handouts/Education Discussed with Patient: Guide for Patients Having Surgery: Your Pathway to Excellent Care. Reviewed and provided document to patient. Patient stated understanding. Advanced Directive. Reviewed and provided document to patient. Patient stated understanding. Nutrition Education Handout, Fuel Up For Surgery. Reviewed and provided document to patient. Patient stated understanding. Travel/Exposure Screening: Travel Screening Have you traveled outside the [place] in the last 6 months?: No Exposure Screening Have you been exposed to anyone who is sick in the last 30 days?: No Have you been exposed to or tested positive for COVID-19 within the last 10 days?: No Infectious Disease Screening Are you having any of the following:: None As of 06/13/2022 any COVID TESTING required for surgery will be set up by your surgeon's office. Please reach out to your surgeon's office if you develop any COVID symptoms, test positive for COVID or are exposed to a COVID positive person. All patients should read below section: COVID 19 Updates & Visitor Policy: Please access [email or web address] for the most updated information. Information on [facility]: Please view [email or web address] (Patient & Visitor Information) for additional details regarding Advanced Directive forms, AWARE, directions, parking information, lodging, Internet access, dining and more. Information on [facility] or [facility] ([facility]): Please view [email or web address] (Patient and Visitor Information) for parking/directions and more. For MyChart information, to activate account or password recovery, please go to [email or web address] or call [phone] (toll-free: [phone]), Sun- Sunday 8am-5pm. Information for Suicide Prevention: National Suicide Prevention Lifeline (5-689-656-NCTE (7832)) orcall or text 251. Chat resources: globa.ly.org. Surgery Times: For patients having surgery @ [facility] or [facility] ([facility]), if your surgeon's office has not notified you of your surgery time by NOON THE BUSINESS DAY BEFORE your surgery, please call [phone] and ask for your surgeon's office. For patients having surgery @ [facility], if your surgeon's office has not notified you of your surgery time by 2pm THE BUSINESS DAY BEFORE your surgery, please call the surgery center at [phone] and ask for your surgeon's office. For patients having [facility] @ [facility], if your surgeon's office has not notified you of your surgery time by NOON THE BUSINESS DAY BEFORE your surgery, please call the surgery center [phone]. The Center for Preoperative Assessment & Planning (CPAP) does not provide arrival times for the day of surgery or provide the duration of surgery. This information is provided by your surgeon'soffice or by the center where you are having surgery. We appreciate your understanding. UREMENT SERVICES MANAGER * Pre-Procedure Instructions - Niyah Bobby NP - 09/11/2023 4:30 PM CST Center for Preoperative Assessment and Planning CPAP Clinic Location: [facility] The night before your surgery: * Do not eat anything after midnight the night before your procedure. and * Do not smoke or use tobacco products after midnight the night before surgery. It is best to stop smoking now to improve your health. The morning of your surgery: * You may have clear liquids on your surgery day. You must stop drinking two hours before you arrive to the surgery facility. Acceptable clear liquids include water, clear sports drinks, black coffee, or clear soda. DO NOT drink any milk, creamer, or alcohol. * Your surgeon's office may have provided additional instructions or restrictions. Please follow those instructions. * You may brush your teeth and rinse your mouth out. * Do not glue your dentures. * Do not wear jewelry, body piercings, makeup, hairpins, false eyelashes or contact lenses to the hospital. * Leave any valuables at home or with your family. * If you are still having menstrual cycles, you should come with a full bladder on the morning of surgery in order to provide a urine sample. * If you have an implantable device with a remote, bring the remote with you on the day of surgery. * If you are going to be admitted after surgery at [facility], COVID testing may be performed on the day of surgery, even if you are up to date on your COVID-19 vaccine. * If having surgery at [facility], you may want to bring a credit card if you want to use our Mobile Pharmacy for your discharge medications. Mobile pharmacy is not available at [facility], the [facility], or the [facility]. Outpatient Surgery: * You must have a responsible adult drive you home and stay with you for 24 hours after your surgery * You cannot be alone at home or in a hotel * Please call your surgeon's office if you do not have someone to drive you home and/or stay with you after surgery * Please bring any items you may need to spend the night in the hospital. Sometimes patients need to be cared for in the hospital overnight. Instructions For Your Medications: Pre-Surgery Instructions: Medication Instructions lysine 1,000 mg tablet Stop taking 1 week prior to surgery psyllium, aspartame, SF (METAMUCIL SF) 3.4 gram packet Don't take on day of surgery turmeric root extract 500 mg capsule Stop taking 1 week prior to surgery valACYclovir (VALTREX) 500 mg tablet Take as scheduled General Instructions For Medications: * Stop all of these medications 5 days prior to your surgery: excedrin, motrin, advil, ibuprofen, aleve, naproxen, meloxicam, celebrex, celecoxib. For medications that you are instructed to take on the morning of surgery, take the medications with a few sips of water. Stop all of these medications 7-14 days prior to your surgery: Vitamin E, Herbal medicines, Diet Pills If you have pain, you may take tylenol (acetaminophen). Do not take more than 6 tablets or 3000 mg (3 g) within a 24 period. Call your surgeon and the CPAP clinic if any of the following happens before surgery: Any changes in your health You have a fever You have any signs of an infection (chest, urinary tract or tooth) You have been to the Emergency Room or were in the hospital You have started taking any new medications You have questions about a bowel prep or special diet before surgery You have symptoms of COVID-19 such as a new or worsening cough, shortness of breath, fever, body aches, loss of taste or smell, diarrhea or vomiting, or sore throat. You have a household contact with COVID-19. You test positive for COVID-19. UREMENT SERVICES MANAGER documented in this encounter Plan of Treatment Not on file documented as of this encounter Procedures Procedure Name Priority Date/Time Associated Diagnosis Comments TYPE AND SCREEN 14 DAY Routine 09/11/2023 5:30 PM PROCUREMENT SERVICES MANAGER Preoperative testing EGFR Routine 09/11/2023 5:30 PM PROCUREMENT SERVICES MANAGER Preoperative testing CBC WITHOUT DIFFERENTIAL Routine 09/11/2023 5:30 PM PROCUREMENT SERVICES MANAGER Preoperative testing BASIC METABOLIC PANEL Routine 09/11/2023 5:30 PM PROCUREMENT SERVICES MANAGER Preoperative testing documented in this encounter Results * eGFR (09/11/2023 5:30 PM PROCUREMENT SERVICES MANAGER) Pathologist [facility] eGFR 86 >=60 mL/min/1. 73 m2 JAZZ VALENTIN Comment: Interpretive Data Reference Interval Normal ?>/= [...] of Race in Diagnosing Kidney Disease, JASN 2020). The CKD-EPI equation should not be used for patients with unstable renal function and has not been validated in children and those over 70. Current interpretive data was last reviewed 2021. Blood 09/11/2023 5:30 PM PROCUREMENT SERVICES MANAGER 09/11/2023 6:18 PM PROCUREMENT SERVICES MANAGER us Niyah Bobby NP LAB BLOOD ORDERABLES Final Result Performing Organization Address [facility] de Phone Number [facility] Department [place] [address] * TYPE AND SCREEN 14 DAY (09/11/2023 5:30 PM PROCUREMENT SERVICES MANAGER) Kimmy, indirect Negative ABO Rh B Positive [facility] Blood 09/11/2023 5:3 0 PM PROCUREMENT SERVICES MANAGER 09/11/2023 6:19 PM PROCUREMENT SERVICES MANAGER Narrative [facility] - 09/11/2023 7:59 PM PROCUREMENT SERVICES MANAGER Is this test being ordered in advance for a procedure?->Yes Expected date of procedure:->09/20/23 Has the patient been transfused in the past 3 months?->No Has the patient been in the past 3 months?->No Niyah Bobby NP LAB BLOOD BANK TEST O RDERABLES Final Result Performing Organization Address [facility] Co de Phone Number [facility] [place] [address] * CBC without differential (09/11/2023 5:30 PM PROCUREMENT SERVICES MANAGER) [facility] WBC 6.2 3.8 - 9.9 K/cumm [facility] Hgb 13.7 11.9 - 15.5 g/dL [facility] Hct 39.0 35.6 - 45.5 % [facility] Plt 279 150 - 400 K/cumm [facility] MPV 11.3 9.1 - 12.3 fL [facility] RBC 4.47 3.90 - 5.20 M/cumm [facility] MCV 87.2 81.3 - 96.4 fL [facility] MCH 30.6 27.1 - 33.3 pg [facility] MCHC 35.1 32.3 - 35.7 g/dL [facility] RDW CV 11.6 11.1 - 14.9 % [facility] RDW SD 37.2 35.7 - 48.1 fL [facility] NRBC abs 0.00 0.00 - 0.01 K/cumm [facility] Blood 09/11/2023 5:30 PM PROCUREMENT SERVICES MANAGER 09/11/2023 6:18 PM PROCUREMENT SERVICES MANAGER Niyah Bobby SASH ASSEMBLER LAB BLOOD ORDERABLES Final Result [facility] [place] [address] * Basic metabolic panel (09/11/2023 5:30 PM PROCUREMENT SERVICES MANAGER) [facility] Sodium 140 135 - 145 mmol/L [facility] Potassium, pl 4.2 3.3 - 4.9 mmol/L [facility] Chloride 102 97 - 110 mmol/L [facility] CO2 27 22 - 32 mmol/L [facility] Anion gap 11 2 - 15 mmol/L [facility] BUN 12 6 - 25 mg/dL [facility] Creatinine 0.82 0.60 - 1.10 mg/dL [facility] Glucose 89 70 - 199 mg/dL [facility] Comment: Interpretive Data Fasting glucose >/= 126 [...] interpretive data was last revised 2022. Calcium 9.1 8.5 - 10.3 mg/dL [facility] Blood 09/11/2023 5:30 PM PROCUREMENT SERVICES MANAGER 09/11/2023 6:18 PM PROCUREMENT SERVICES MANAGER us Niyah Bobby NP LAB BLOOD ORDERABLES Final Result [facility] [place] [address] documented in this encounter Visit Diagnoses Diagnosis Preoperative testing- Primary Unspecified pre-operative examination documented in this encounter Discontinued Medications Medication Sig Discontinue Reason Start Date End Da te atomoxetine (STRATTERA) 25 mg capsule 2 capsules (50 mg total) daily Therapy completed 04/26/2023 09/11/2023 Prolensa 0.07 % drops Therapy completed 02/23/2023 09/11/19 24 loperamide (IMODIUM A-D) 2 mg tablet Take 1 tablet (2 mg total) by mouth 4 (four) times a day as needed Therapy completed 09/11/2023 metroNIDAZOLE (FLAGYL) 250 mg tablet Therapy completed 05/25/2023 09/11/2023 ofloxacin (OCUFLOX) 0.3 % ophthalmic solution Therapy completed 02/23/2023 09/11/19 24 prednisoLONE acetate (PRED FORTE) 1 % ophthalmic suspension Therapy completed 03/29/2023 09/11/19 24 famotidine (PEPCID) 20 mg tabletIndications:Laryng itis Take 1 tablet (20 mg total) by mouth daily for 7 days Therapy completed 06/16/2023 09/11/2023 linaCLOtide (LINZESS) 145 mcg capsuleIndications:chron ic idiopathic constipation Take 1 capsule (145 mcg total) by mouth daily Therapy completed 06/29/2023 09/11/2023 ascorbic acid (VITAMIN C) 1,000 mg tabletIndications:Vitami n C Deficiency,supplement Take 1 tablet (1,000 mg total) by mouth nightly Error 09/11/2023 biotin 1,000 mcg tablet,chewable Take 1 capsule by mouth daily Error 09/11/2023 cholecalciferol (VITAMIN D-3) 2000 unit capsuleIndications:Vitam in D Deficiency Take 1 capsule (2,000 Units total) by mouth nightly Error 09/11/2023 LORazepam (ATIVAN) 0.5 mg tablet Take 1 tablet (0.5 mg total) by mouth 2 (two) times a day as needed Error 06/18/2023 09/11/2023 multivitamin capsuleIndications:Vitam in Deficiency Prevention Take 1 capsule by mouth nightly Error 09/11/2023 omega 4-otn-tsg-fish oil (Fish OiL) 1,000 mg (120 mg-180 mg) capsule Take 1 capsule (1,000 mg total) by mouth nightly Error 09/11/2023 omega-3 fatty acids-fish oil 300-1,000 mg capsuleIndications:for supplement Take 1 capsule (1 g total) by mouth nightly Error 09/11/2023 zinc 50 mg tabletIndications:for supplement Take 50 mg by mouth nightly Error 09/11/2023 documented as of this encounter Care Teams Mobile Therapist Relationship Specialty Start Date End Date Ton Hernandez NP [address] [place] [phone] PCP - General Nurse Practitioner 03/08/23 Crispin Shen MD Surgeon Colon and Rectal Surgery 09/09/20 Kemi Schmitz [address] [place] [address] Surgeon Colon and Rectal Surgery 05/16/21 Maria C Zacarias MD [address] [place] [address] Professional Fee Coder Gastroenterology 04/02/23 documented as of this encounter
--- OUTSIDE RECORDS SUMMARY | 2024-08-18 09:54 | XMS_ITS | Encounter Summary ---
Author Organization [facility] Address [address] [place] [address] Phone Care Team Providers Care Golf Cart Maker Name Role Phone Crispin Shen MD Unavailable [phone] Kemi Schmitz Unavailable Reason for Visit * Reason Onset Date Comments Confirmation 04/06/2022 Encounter Details Date Type Department Care Team (Late st Contact Info) Description 04/06/2022 Telephone [facility] Department of Surgery, Section of Colon and Rectal Surgery [address], [place] [address] Ana M Baig, RMA Confirmation Social History Tobacco Use Types Packs/Day [...] How often do you attend chur or yarsanism services? 1 to 4 times per year 11/24/2020 Do you belong to any clubs o r organizations such as adventism groups, unions, fraternal or athletic groups, or school groups? No 11/24/2020 How often do you attend meet ings of the clubs or organizations you belong to? Never 11/24/2020 Are you , , di vorced, , never , or living with a partner? Living with partner 11/24/2020 AUDIT-C Answer Date Recorded Q1: How often do you have a drink containing alcohol? Never 04/07/2022 Q2: How many drinks containi ng alcohol do you have on a typical day when you are drinking? Patient does not drink Q3: How often do you have si x or more drinks on one occasion? Never 04/07/2022 Hunger Vital Sign Answer Date Recorded Within [...] on file Legal Sex Female 9:36 AM AREA DEVELOPMENT MANAGER Gender Identity Female 11/16/2020 2:58 PM CDT Sexual Orientation Straight 11/16/2020 2: 58 PM CDT documented as of this encounter Miscellaneous Notes * Telephone Encounter - Ana M Baig RMA - 04/06/2022 4:02 PM CDT Spoke to patient and confirmed prep and surgery. 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 Patient was made aware of current visitor policy and verbalized understanding. * Telephone Encounter - Ana M Baig RMA - 04/06/2022 2:57 PM CDT LVM for patient to call back to confirm surgery for tomorrow. documented in this encounter Plan of Treatment Not on file documented as of this encounter Visit Diagnoses Not on filedocumented in this encounter Care Teams Golf Cart Maker Relationship Specialty Start Date End Date Crispin Shen MD Surgeon Colon and Rectal Surgery 09/09/20 Kemi Schmitz [address] [place] [address] Surgeon Colon and Rectal Surgery 05/16/21 documented as of this encounter
--- OUTSIDE RECORDS SUMMARY | 2024-08-18 09:54 | XMS_ITS | Encounter Summary ---
Author Organization [facility] Address [address] [facility] [address] [place] [address] Phone Care Team Providers Care Retail Field Merchandiser Name Role Phone Crispin Shen MD Unavailable [phone] Kemi Schmitz Unavailable Reason for Visit * Reason Comments Follow-up Rectovaginal fistula * Consultation (Routine) - Closed Specialty Diagnoses / Procedures Referred By Cecy t Referred To Contact Surgery / Colon and Rectal Surgery Diagnoses Rectovaginal fistula Kaitlyn Bowen MD [address] [facility] [address] Phone: tel: fax: Crispin Shen MD [address] [facility] [phone] [place] [address] Phone: tel: fax: Referral ID Status Reason Start Date Expiration Date V isits Requested Visits Authorized [id number] Closed Specialty Services Required 02/02/2022 02/02/2023 12 12 Encounter Details Date Type Department Care Team (Late st Contact Info) Description 04/21/2022 3:15 PM CDT Office Visit [facility] [address] [facility] 2nd Floor [address] [place] [address] Crispin Shen MD [address] [facility] [phone] [place] [address] Rectovaginal fistula (Primary Dx) Social History Tobacco Use Types [...] week 11/24/2020 How often do you attend [facility] or sikh services? 1 to 4 times per year 11/24/2020 Do you belong to any clubs o r organizations such as evangelical groups, unions, fraternal or athletic groups, or school groups? No 11/24/2020 How often do you attend meet ings of the clubs or organizations you belong to? Never 11/24/2020 Are you , , di vorced, , never , or living with a partner? Living with partner 11/24/2020 AUDIT-C Answer Date Recorded Q1: How often do you have a drink containing alcohol? Never 04/14/2022 Q2: How many drinks containi ng alcohol do you have on a typical day when you are drinking? Patient does not drink Q3: How often do you have si x or more drinks on one occasion? 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 Gender Identity Female 11/16/2020 2:58 PM CDT Sexual Orientation Straight 11/16/2020 2: 58 PM CDT documented as of this encounter Last Filed Vital Signs Vital Sign Reading Time Taken Comments Blood Pressure 119/83 04/21/2022 4:20 PM CDT Pulse 85 04/21/2022 4:20 PM CDT Temperature 36.8 ??C (98.2 ??F) 04/21/2022 4:20 PM CD T Respiratory Rate - - Oxygen Saturation 97% 04/21/2022 4:20 PM CDT Inhaled Oxygen Concentration - - Weight 97.1 kg (214 lb) 04/21/2022 4:20 PM CDT Height 177.8 cm (5' 10 ) 04/21/2022 4:20 PM CDT Body Mass Index 30.71 04/21/2022 4:20 PM CDT documented in this encounter Progress Notes * Crispin Shen MD - 04/21/2022 3:15 PM CDT Established Patient Follow-up Visit Interval History: The patient is a 51 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 We took her for an EUA a couple of weeks ago she had some granulation tissue any tiny pit at the site of her previous fistula. We did extensive evaluation there was no clear evidence of any residual fistula. Nonetheless, I did not want to close her colostomy with granulation tissue at that site. She is back today for evaluation. Review of Systems: All other systems negative except as per HPI and scanned media Physical exam: Constellation: No apparent distress. Head: Normocephalic Eyes: Anicteric Ears, mouth and nose: Normal Neurologic: Non-focal motor function Respiratory: Non-labored breathing Skin: No rashes Musculoskeletal: No gross bony deformities There is a very small 2 mm area with granulation tissue at the site of the previous fistula on anoscopy. We treated that with silver nitrate. Assessment and Plan: Ms. Belem Smith is a 51 y.o. female with and improving perineal wound. I will see her back one more time in the office and we will evaluated. We do not need to do that in the operating room. If that looks good, we will plan on closing her colostomy at the end of the month. Crispin Shen MD 04/21/2022 5:00 PM This note was created in part with the assistance of [employer] voice recognition software. Clinical Coder variances and error may occur. Not every sentence has been reviewed in its entirety. For questions about the documentation above, please contact Dr. Shen. documented in this encounter Plan of Treatment Not on file documented as of this encounter Visit Diagnoses Diagnosis Rectovaginal fistula- Primary Digestive-genital tract fistula, female documented in this encounter Care Teams Retail Field Merchandiser Relationship Specialty Start Date End Date Crispin Shen MD Surgeon Colon and Rectal Surgery 09/09/20 Kemi Schmitz [address] [place] [address] Surgeon Colon and Rectal Surgery 05/16/21 documented as of this encounter
--- OUTSIDE RECORDS SUMMARY | 2024-08-18 09:54 | XMS_ITS | Encounter Summary ---
Author Organization [facility] Address [address] [facility] [address] [place] [address] Phone Care Team Providers Care Editor House Organ Name Role Phone Crispin Shen MD Unavailable [phone] Kemi Schmitz Unavailable Reason for Visit * Reason Comments Follow-up anal vaginal fistula * Consultation (Routine) - Closed Specialty Diagnoses / Procedures Referred By Contac t Referred To Contact Surgery / Colon and Rectal Surgery Diagnoses Rectovaginal fistula Kaitlyn Bowen MD [address] [place] [address] Phone: tel: fax: Crispin Shen MD [address] [facility] [phone] [place] [address] Phone: tel: fax: Referral ID Status Reason Start Date Expiration Date V isits Requested Visits Authorized [id number] Closed Specialty Services Required 02/02/2022 02/02/2023 12 12 Encounter Details Date Type Department Care Team (Late st Contact Info) Description 05/09/2022 8:30 AM CDT Office Visit [facility] Department of Surgery, Section of Colon and Rectal Surgery [address], [place] [address] Crispin Shen MD [address] [phone] [place] [address] [facility] care ([facility] ([facility]) (Primary Dx); Anal fistula Social History Tobacco Use Types Packs/Day Years [...] 11/24/2020 How often do you attend [facility] or yarsani services? 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 Gender Identity Female 11/16/2020 2:58 PM CDT Sexual Orientation Straight 11/16/2020 2: 58 PM CDT documented as of this encounter Last Filed Vital Signs Vital Sign Reading Time Taken Comments Blood Pressure 152/93 05/09/2022 8:29 AM CDT Pulse 93 05/09/2022 8:29 AM CDT Temperature 36.3 ??C (97.4 ??F) 05/09/2022 8:29 AM CD T Respiratory Rate - - Oxygen Saturation - - Inhaled Oxygen Concentration - - Weight 94.4 kg (208 lb 3.2 oz) 05/09/2022 8:29 A M CDT Height 177.8 cm (5' 10 ) 05/09/2022 8:29 AM CDT Body Mass Index 29.87 05/09/2022 8:29 AM CDT documented in this encounter Progress Notes * Crispin Shen MD - 05/09/2022 8:30 AM CDT Established Patient Follow-up Visit Interval History: The patient is a 51 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 She has a diverting loop colostomy. We have been looking at the fistula site and making sure that the granulation tissue resolves. I saw her couple of weeks ago and we treated some granulation tissue at the site with silver nitrate. She is back today for evaluation. She has already had her Hypaque study back in the early summer and I have looked at those results from [facility]. They show no fistula. Review of Systems: All other systems negative except as per HPI and scanned media Physical exam: Constellation: No apparent distress. Head: Normocephalic Eyes: Anicteric Ears, mouth and nose: Normal Neurologic: Non-focal motor function Respiratory: Non-labored breathing Skin: No rashes Musculoskeletal: No gross bony deformities On exam, the a PC ostomy incision has healed completely. I do not see any granulation tissue. At the area where there is the punctate indentation, I probed again and there was no fistula. Assessment and Plan: Ms. Belem Smith is a 51 y.o. female with a healed anal vaginal fistula. I do not need to repeatthe study from earlier in the summer. She should be good for colostomy closure next week. We have already discussed the risk of recurrence of the fistula. We discussed the risks of the surgery including but not limited to bleeding, infection, anastomotic leak, damage to other organs, and medical co mplications. They understand wish to proceed. We will try to do this laparoscopically with a local incision around the colostomy. Crispin Shen MD 05/09/2022 8:54 AM This note was created in part with the assistance of [employer] voice recognition software. Underwriting Clerks Supervisor variances and error may occur. Not every sentence has been reviewed in its entirety. For questions about the documentation above, please contact Dr. Shen. documented in this encounter Plan of Treatment Not on file documented as of this encounter Visit Diagnoses Diagnosis Colostomy care (HCC)- Primary Attention to colostomy Anal fistula documented in this encounter Care Teams Editor House Organ Relationship Specialty Start Date End Date Crispin Shen MD Surgeon Colon and Rectal Surgery 09/09/20 Kemi Schmitz [address] [facility] [place] [place] [address] Surgeon Colon and Rectal Surgery 05/16/21 documented as of this encounter
--- OUTSIDE RECORDS SUMMARY | 2024-08-18 09:54 | XMS_ITS | Encounter Summary ---
Author Organization [facility] Address [address] [place] [address] Care Team Providers Care Centralized Traffic Control Operator Name Role Phone Crispin Shen MD Unavailable [phone] Kemi Schmitz Unavailable Reason for Visit * Auth/Cert Specialty Diagnoses / Procedures Referred By Contac t Referred To Contact Diagnoses Fistula, anal Vaginal fistula Fistula, anal [K60.3] Vaginal fistula [N82.8] Procedures [place] SURG DIAGNOSTIC EXAM, ANORECTAL EXAM UNDER ANESTHESIA - RECTUM Referral ID Status Reason Start Date Expiration Date Visits Re quested Visits Authorized [id number] 1 1 Encounter Details Date Type Department Care Team (Latest Contact Info) Description 04/07/2022 6:25 AM CDT - 04/07/2022 9:06 AM CDT Hospital Encounter [facility] [address] [place] [address] Crispin Shen MD [id number] [place] [address] Discharge Disposition: Discharge to home or self [...] week 11/24/2020 How often do you attend [facility] or scientology services? 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 Gender Identity Female 11/16/2020 2:58 PM CDT Sexual Orientation Straight 11/16/2020 2: 58 PM CDT documented as of this encounter Last Filed Vital Signs Vital Sign Reading Time Taken Comments Blood Pressure 128/77 04/07/2022 8:50 AM CDT Pulse 84 04/07/2022 8:50 AM CDT Temperature 36.1 ??C (97 ??F) 04/07/2022 8:31 AM CDT Respiratory Rate 29 04/07/2022 8:50 AM CDT Oxygen Saturation 98% 04/07/2022 8:50 AM CDT Inhaled Oxygen Concentration - - Weight 95.3 kg (210 lb) 03/31/2022 9:30 AM CDT Height 177.8 cm (5' 10 ) 03/31/2022 9:30 AM CDT Body Mass Index 30.13 03/31/2022 9:30 AM CDT documented in this encounter Discharge Instructions * Discharge Instructions* Regina Pires MD - 04/07/2022 7:25 AM CDT COLON AND RECTAL SURGERY Post-Operative Instructions for Outpatient Procedure Pain Some pain is to be expected after a procedure. We recommend alternating between Tylenol 1000mg OR Ibuprofen 600mg every 4 hours and using the prescribed narcotics for any breakthrough pain. Heat or ice may also be used to provide relief, but be careful not to burn yourself as this area is numb. Make sure to take pain medication with food. Sitz baths/warm tub soaks can be used 3 times daily or as needed. If prescribed Percocet, [place], Tylenol #3, or any agent containing acetaminophen (Tylenol), do not use additional Tylenol. If using another NSAID, do not use additional Ibuprofen. If previously instructed by another physician NOT to use Tylenol or Ibuprofen, please refrain from using this Medication. Bowel Function It is important to keep your bowel movements soft and easy to pass. Eat a high fiber diet, take a stool softener daily or 1 tablespoon of Metamucil daily to help with this. Drink at least 64 oz of non-caffeinated fluids daily. Narcotics cause constipation quickly, which can lead to increased pain and healing time, take Miralax as needed if you have not had a bowel movement in 48 hours. Bleeding Some bleeding is common after a procedure. Please call our office if you notice any blood loss greater than ?? cup of blood, blood clots larger than a quarter or if blood is dripping out and not stopping. If you feel faint, lightheaded, and dizzy or like you will pass out, call 9-1-1 immediately. Nausea/ Vomiting It is not uncommon to have nausea or vomiting after anesthesia. Taking pain medication on an empty stomach can cause nausea or vomiting. If you develop nausea or vomiting 24 hours after your procedure or cannot keep fluids down, call our office or go to your local Emergency Room. Fever/ Chills If you develop any fever over 101.5F or chills, please call our office. It is common to have a low grade fever after a procedure (under 101.5F), use of the OTC medications can help with this. Activity No driving while taking any narcotics. No lifting anything over 10 lbs or straining for 2 weeks following a removal of a hemorrhoid. Walk as much as possible to help prevent constipation. Wound Care If you have an incision, keep the incision clean and dry. Please shower daily, letting soap and water run over the incision and pat dry. Do not scrub. If there is any drainage, you can cover the area with gauze to absorb this. Change this gauze daily, or as needed if it becomes saturated throughout the day. Do not apply any antibioticointments to this area. If your doctor left in packing, remove this 24 hours after your procedure. Wash hands and replace packing if directed. If you have a seton, rotate the seton once a week to prevent skin from covering opening. Other If unable to urinate for 8 hours, call our office or go to the ER. If having skin breakdown or irritation, using a skin barrier (Ana Cristina or Calmoseptine) can provide relief and healing. Sutures may be visible or felt, these will dissolve over time. If the suture is causing irritation,you can tuck gauze in between it and your skin or call the oce and we can schedule an appointment to have it cut back. Call Your Surgeon???s Office for All Questions and Concerns Office: [phone] (Sunday - Sunday, 8am to 4pm) Exchange: [phone] (after hours, holidays and weekends) * Attachments The following attachments cannot be sent through Care Everywhere. * [facility] PATHWAY TO EXCELLENT CARE AFTER SURGERY documented in this encounter Medications at Time of Discharge lysine 1,000 mg tablet Take 1,000 mg by mouth nightly turmeric root extract 500 mg capsule Take 500 mg by mouth nightly acetaminophen 500 mg capsuleIndications: Pain Take 2 capsules (1,000 mg total) by mouth every 8 (eight) hours 180 tablet 2 06/19/20 22 enoxaparin (LOVENOX) 40 mg/0.4 mL syringeIndications: Deep Vein Thrombosis Prevention Inject 0.4 mL (40 mg total) under the skin daily for 21 days 8.4 mL 2 06/10/20 22 ibuprofen (ADVIL,MOTRIN) 600 mg tabletIndications:P ain Take 1 tablet (600 mg total) by mouth every 8 (eight) hours 90 tablet 2 06/20/20 22 ascorbic acid (VITAMIN C) 1,000 mg tabletIndications:V itamin C Deficiency,suppleme nt Take 1 tablet (1,000 mg total) by mouth nightly 09/11/19 24 cholecalciferol (VITAMIN D-3) 2000 unit capsuleIndications: Vitamin D Deficiency Take 1 capsule (2,000 Units total) by mouth nightly 09/11/19 24 LORazepam (ATIVAN) 0.5 mg tablet Take 1 [...] before surgery 6 tablet 2 05/14/20 23 omega-3 fatty acids-fish oil 300-1,000 mg capsuleIndications: [...] (intolerable pain) 15 tablet 2 05/14/20 23 polyethylene glycol (MIRALAX) 17 gram packetIndications:c onstipation Take 1 packet (17 g total) by mouth daily as needed for constipation 30 packet 2 05/14/20 23 psyllium, aspartame, SF (METAMUCIL SF) 3.4 gram packet Take 1 packet by mouth daily as needed (constipation) 30 packet 2 05/14/20 23 zinc 50 mg tabletIndications:f or supplement Take 50 mg by mouth nightly 09/11/19 24 documented as of this encounter Discharge Disposition Disposition Code Departure Means Destination Discharge to home or self care documented in this encounter H&P Notes * Regina Pires MD - 04/07/2022 7:25 AM CDT I have reviewed the H&P, examined the patient, and endorse the findings as written. Plan of Care : Based on the above findings, I consider Belem Smith to be an acceptable risk for: Procedure(s): EXAM UNDER ANESTHESIA - RECTUM Cosigned by Crispin Shen MD at 04/07/2022 8:01 AM CDT Source Note - Angela Morrison NP - 03/31/2022 10:46 AM CDT Images from the original note were not included. Center for Preoperative Assessment and Planning Preoperative Evaluation Record Evaluation type/location: [place] [facility] [place] procedure site: [facility] [place] Date: 03/31/22 NOTE: This note represents a preoperative evaluation initiated via telephone interview. NO PHYSICALEXAM was performed at the time of initial assessment. A physical exam may be added to this note anddocumented below. Anesthesia Evaluation Belem Smith is a 51 y.o. female Procedure(s): EXAM UNDER ANESTHESIA - RECTUM Pre-Op Diagnosis Codes: * Fistula, anal [K60.3] * Vaginal fistula [N82.8] HISTORY HPI Belem Smith is a 51 y.o. female who is being evaluated prior to undergoing colostomy takedown History of anal vaginal fistula Limited cervical ROM Past Medical History Information obtained from: patient and chart. Neurological + Psychiatric history - anxiety Pertinent negatives: seizures; neuromuscular disease; CVA/stroke; TIA; CEA; ICA stenosis; dementia/mild cognitive impairment and carotid artery stent Cardiovascular Pertinent negatives: hypertension ; CAD ; SC ; CABG ; valvular heart disease; valve replacement; atrial fibrillation; arrhythmia; pacemaker/ICD; PVD; DVT/PE; negative for CHF; drug-eluting stent(s); bare metal stent(s) and coronary angioplasty Respiratory Pertinent negatives: COPD; asthma; sleep apnea (CANDE); pulmonary hypertension; no O2 use outside thehospital and non-smoker Hepatic / Heme + History of anemia (Last H/H= 13.5/41.5 on 02/02/22) Pertinent negatives: liver disease; history of thrombocytopenia and history of Kimmy positive Gastrointestinal Pertinent negatives: GERD and hiatal hernia Renal / Pertinent negatives: dialysis and nephrolithiasis Musculoskeletal/Pain Pertinent negatives: chronic opioid use and previous treatment for opioid use disorder Endocrine / Other + Obesity (BMI >30) Pertinent negatives: diabetes mellitus; thyroid disease; cancer history; rheumatological disease and transplanted organ Functional Capacity Functional capacity: 4-6 METs Comments: Pt states able to walk 3-4 blocks or climb 2 flights of stairs without SOB/CP. Walks regularly Day of Surgery assessments + Possibility of assessed - ruled out by patient's provided history. Review of Systems + vision loss (Wears corrective glasses/contacts) Pertinent negatives: productive cough; wheezing; SOB; recent cold/flu; fever; chest pain; palpitations; orthopnea; pedal edema; PND; heavy menses; Sickle Cell disease/trait; previous transfusion; transfusion reaction; melena/hematochezia; easy bruising; bleeding problems; syncope; dizziness; muscleweakness; numbness/tingling; hard of hearing; heartburn; nausea; dysphagia; diarrhea (thick stool per ostomy bag); dentures/partials; chipped/loose teeth; abdominal pain; diaphoresis and no unexpected weight change PAT Summary and Plans Cardiac risk classification of planned procedure: low cardiac risk. Preoperative assessment status: complete. Additional comments: Belem Smith is a 51 y.o. female who is being evaluated prior to undergoinga low cardiac risk surgery. Revised Cardiac Risk Index factors are (none) for a total RCRI of 0 outof 6. Functional capacity is 4-6 METs. Obstructive sleep apnea (CANDE) screening status is STOP-BANG incomplete but suspected to be 0-2 suggesting low risk for CANDE. Neck circumference pending.. This assessment was performed via telephone. Therefore the physical exam has been deferred to the day of surgery team. The patient was provided with preoperative instructions for their medications. Patient instructions were provided by telephone. Patient verbalized understanding of preoperative plan. Blood bank needs for day of procedure: No type and screen needed Pending labs/tests include: None Patient's COVID19 status is: Unexposed. The patient currently has no concerning symptoms of COVID19. . Patient's COVID-19 vaccination status is Up to date with 3 mRNA vaccines. Documentation of vaccination status is available in the Epic Immunization tab. . Plan for pre-procedure COVID19 testing: Patient is asymptomatic and up to date with their COVID-19 vaccine. COVID-19 testing not indicated. This patient was evaluated in CPAP yesterday 03/30/2022 for her colostomy takedown procedure on 04/17/22. There were no concerns. BMP complete and WNL. CBC normal in Care Everywhere 01/2022. TPAP complete. . Preoperative evaluation performed by Angela Morrison NP on 03/31/22 at 10:47 AM . Patient Active Problem List Diagnosis ??? Rectovaginal fistula ??? Anal fistula ??? Vaginal fistula ??? Colostomy in place (CMS/HCC) ([facility]) Past Medical History: Diagnosis Date ??? Anxiety [...] obstetric history on file. No Known Allergies Med List Status: Nurse Complete Set By: Yesenia Cabrera RN at 03/31/2022 9:34 AM Taking? Last Dose Start Date End Date Provider ascorbic acid (VITAMIN C) 1,000 mg tablet 03/30/2022 -- -- Tyra Crawford MD cholecalciferol (VITAMIN D-3) 2000 unit capsule 03/30/2022 -- -- Tyra Crawford MD LORazepam (ATIVAN) 0.5 mg tablet 01/24/2022 07/09/20 -- Tyra Crawford MD lysine 1,000 mg tablet 03/30/2022 -- -- Tyra Crawford MD metroNIDAZOLE (FLAGYL) 500 mg tablet 03/16/22 -- Crispin Shen MD Take one tablet at 1pm, 2pm, and 10pm the day before surgery multivitamin capsule 03/30/2022 -- -- ProviderTyra MD neomycin (MYCIFRADIN) 500 mg tablet 03/16/22 -- Crispin Shen MD Take two tablets by mouth at 1pm, 2pm, and 10pm the day before surgery omega-3 fatty acids-fish oil 300-1,000 mg capsule 03/30/2022 -- -- Tyra Crawford MD ondansetron ODT (ZOFRAN-ODT) 8 mg disintegrating tablet 03/16/22 -- Crispin Shen MD Take one tablet at 11am when starting bowel prep, take one tablet as needed every six to eight hours after turmeric root extract 500 mg capsule 03/30/2022 -- -- Tyra Crawford MD zinc 50 mg tablet 03/30/2022 -- -- Tyra Crawford MD No current facility-administered medications for this encounter. Current Outpatient Medications: ??? ascorbic acid (VITAMIN C) 1,000 mg tablet ??? cholecalciferol (VITAMIN D-3) 2000 unit capsule ??? LORazepam (ATIVAN) 0.5 mg tablet ??? lysine 1,000 mg tablet ??? multivitamin capsule ??? omega-3 fatty acids-fish oil 300-1,000 mg capsule ??? turmeric root extract 500 mg capsule ??? zinc 50 mg tablet ??? metroNIDAZOLE (FLAGYL) 500 mg tablet ??? neomycin (MYCIFRADIN) 500 mg tablet ??? ondansetron ODT (ZOFRAN-ODT) 8 mg disintegrating tablet Facility-Administered Medications Ordered in Other Encounters: ??? diatrizoate meglumine-diatrizoate sodium (GASTROGRAFIN/-GASTROVIEW) 66-10 % solution 60 mL, 60 mL, oral, Once in imaging Social History Tobacco Use Smoking Status Never Smoker Smokeless Tobacco Never Used Alcohol Use: Not At Risk ??? Frequency of Alcohol Consumption: Never ??? Average Number of Drinks: Patient does not drink ??? Frequency of Binge Drinking: Never Substance and Sexual Activity Drug Use Never Family History Problem Relation Age of Onset ??? Thyroid cancer Mother ??? Anesthesia problems Neg Hx There were no vitals filed for this visit. Relevant diagnostics: ECG(s): 4/29/22 Care Everywhere no tracing Sinus rhythm 77 Borderline low voltage, extremity leads Echocardiogram(s): N/A Stress test(s): N/A Cardiac catheterization(s): N/A PFT(s): N/A Vascular studies: N/A Other: N/A PT: No results found for requested labs within last 720 hours. INR: No results found for requested labs within last 720 hours. APTT: No results found for requested labs within last 720 hours. Hgb A1C: No results found for requested labs within last 720 hours. CBC RBC: No results found for requested labs within last 720 hours. RDW: No results found for requested labs within last 720 hours. MCHC: No results found for requested labs within last 720 hours. MCH: No results found for requested labs within last 720 hours. MCV: No results found for requested labs within last 720 hours. Hct: No results found for requested labs within last 720 hours. Hgb: No results found for requested labs within last 720 hours. WBC: No results found for requested labs within last 720 hours. MPV: No results found for requested labs within last 720 hours. Platelets: No results found for requested labs within last 720 hours. RDW CV: No results found for requested labs within last 720 hours. RDW Sd: No results found for requested labs within last 720 hours. BMP Glucose: 03/30/2022: 91 mg/dL Calcium: 03/30/2022: 8.6 mg/dL Sodium: 03/30/2022: 142 mmol/L Potassium: 03/30/2022: 3.7 mmol/L CO2: 03/30/2022: 28 mmol/L Chloride: 03/30/2022: 106 mmol/L BUN: 03/30/2022: 7 mg/dL (L) Creatinine: 03/30/2022: 0.74 mg/dL Sandeep index score: 100 documented in this encounter Miscellaneous Notes * Perioperative Nursing Note - Bárbara Henriquez RN - 04/07/2022 8:26 AM CDT No dressing * Op Note - Crispin Shen MD - 04/07/2022 8:18 AM CDT SURGICAL TEAM Surgeon(s) and Role: * Crispin Shen MD - Primary ANESTHESIA: Monitor Anesthesia Care PREOPERATIVE DIAGNOSIS (ES): History of anovaginal fistula POSTOPERATIVE DIAGNOSIS (ES): History of anovaginal fistula NAME OF OPERATION: Exam under anesthesia and curettage of anal sinus INDICATIONS FOR PROCEDURE: The patient is a 51 y.o. 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 She had an episioproctotomy. She had a normal Hypaque study. She is brought today for exam under anesthesia. FINDINGS: There is no fistula. There is still a tiny sinus anteriorly with significant granulation tissue. DESCRIPTION OF PROCEDURE: The patient was brought the operating room, placed under MAC anesthesia in the prone gabriel-knife position. The perineum was prepped and draped in normal sterile fashion and anesthetized with 40 mL of 0.25% Marcaine. A detailed digital rectal exam was performed which was remarkable for a well-healed perineal body anteriorly. The anoscope was placed in the anal canal and it was inspected. At the site of the previous fistula,there was a 3-4 mm opening that had granulation tissue. We probed this with a finger in the vagina to palpate the former vaginal opening. There was no fistula could be demonstrated on repeated attempts at probing this. The granulation tissue was curetted out. There was a tiny sinus. Given her history, it is my opinion that we should delay the colostomy closure until this has completely epithelialized. We will bring her back in a month for another exam under anesthesia. Estimated Blood Loss: None IV Fluids: See Anesthesia records Sponge, Instrument and Needle counts: Correct times two Presence statement: I was present for the entire procedure from start to finish * Pre-Procedure Instructions - Angela Morrison NP - 03/31/2022 10:56 AM CDT Center for Preoperative Assessment and Planning CPAP Clinic Location: [facility] The night before your surgery: * Do [...] instructions or restrictions. Please follow those instructions. ?? * You may brush your teeth and rinse your mouth out. * Do not glue your dentures. * Do not wear jewelry, body piercings, makeup, hairpins, false eyelashes or contact lenses to the hospital. * Leave any valuables at home or with your family. * If you have an implantable device with a remote, bring the remote with you on the day of surgery. * If you use home oxygen, bring your portable oxygen tank with you on the day of surgery * If having surgery at [facility], you may want to bring a credit card if you want to use our Mobile Pharmacy for your discharge medications. Mobile pharmacy is not available at [facility], the Orthopedic Center, or the [facility]. Outpatient Surgery: * You must have a [...] For Your Medications: Pre-Surgery Instructions: Medication Instructions ??? ascorbic acid (VITAMIN C) 1,000 mg tablet Don't take on day of surgery ??? cholecalciferol (VITAMIN D-3) 2000 unit capsule Don't take on day of surgery ??? LORazepam (ATIVAN) 0.5 mg tablet Take on day of surgery if needed ??? lysine 1,000 mg tablet Don't take on day of surgery ??? multivitamin capsule Stop taking 1 week prior to surgery ??? omega-3 fatty acids-fish oil 300-1,000 mg capsule Don't take on day of surgery ??? turmeric root extract 500 mg capsule Stop taking 14 days prior to surgery ??? zinc 50 mg tablet Don't take on day of surgery ??? metroNIDAZOLE (FLAGYL) 500 mg tablet Take as directed by surgeon. ??? neomycin (MYCIFRADIN) 500 mg tablet Take as directed by surgeon. ??? ondansetron ODT (ZOFRAN-ODT) 8 mg disintegrating tablet Take on day of surgery if needed General Instructions For Medications: ?? * Stop all of these medications 5 days prior to your surgery: excedrin, motrin, advil, ibuprofen, aleve, naproxen, meloxicam, celebrex, celecoxib.? For medications that you are instructed to take on the morning of surgery, take the medications with a few sips of water. ?? Stop all of these medications 7-14 days prior to your surgery: Vitamin E, Herbal medicines, DietPills ?? If you have pain, you may take tylenol (acetaminophen). Do not take more than 6 tablets or 3000 mg (3 g) within a 24 period. Call your surgeon and the CPAP clinic if any of the following happens before surgery: ?? Any changes in your health ?? You have a fever ?? You have any signs of an infection (chest, urinary tract or tooth) ?? You have been to the Emergency Room or were in the hospital ?? You have started taking any new medications ?? You have questions about a bowel prep or special diet before surgery ??? You have symptoms of COVID-19 such as a new or worsening cough, shortness of breath, fever, body aches, loss of taste or smell, diarrhea or vomiting, or sore throat. ??? You have a household contact with COVID-19. ??? You test positive for COVID-19. * Perioperative Nursing Note - Yesenia Cabrera RN - 03/31/2022 9:36 AM CDT Center for Preoperative Assessment and Planning Perioperative Nursing Note Telephone Preoperative Evaluation ([facility]) - TELEPHONE ONLY, NO PHYSICAL EXAM Date: 03/31/22 Vitals: 03/31/22 0930 Weight: 95.3 kg (210 lb) Height: 177.8 cm (5' 10 ) CHEST CIRCUMFERENCE: Social History Tobacco Use Smoking Status Never Smoker Smokeless Tobacco Never Used Substance and Sexual Activity Drug Use Never Alcohol Use Q1: How often do you have a drink containing alcohol?: Never Q2: How many drinks containing alcohol do you have on a typical day when you are drinking?: Patientdoes not drink Q3: How often do you have six or more drinks on one occasion?: Never Outpatient Medications Marked as Taking for the 04/07/22 encounter (Hospital Encounter) Medication Sig Dispense Refill ??? ascorbic acid (VITAMIN C) 1,000 mg tablet Take 1,000 mg by mouth nightly ??? cholecalciferol (VITAMIN D-3) 2000 unit capsule Take 2,000 Units by mouth nightly ??? LORazepam (ATIVAN) 0.5 mg tablet Take 0.5 mg by mouth 2 (two) times a day as needed for anxiety ??? lysine 1,000 mg tablet Take 1,000 mg by mouth nightly ??? multivitamin capsule Take 1 capsule by mouth nightly ??? omega-3 fatty acids-fish oil 300-1,000 mg capsule Take 1 g by mouth nightly ??? turmeric root extract 500 mg capsule Take 500 mg by mouth nightly ??? zinc 50 mg tablet Take 50 mg by mouth nightly Implants Implant [employer]ruent [id number] Biodesign Surgisis 9.5x.6cm Set Fistula Plug Without Button [place] - [id number] - Implanted Rectum Inventory item: [employer] B[employer]esign Surgisis 9.5x.6cm Set Fistula Plug Without Button [place] [id number] Model/Cat number: [id number] Physical Anthropologist: [employer]ent Lot number: [id number] As of 03/04/2021 Status: Implanted SKIN Piercings Remaining: Yes Wound (LDAs) Type of Wound (LDA): (none) SCREENINGS Sandeep index score: 100 NUTRITION PATIENT CARE PLANNING Advance Directives (For Healthcare) Have you reviewed your Advance Directive and is it valid for this stay?: Yes Advance Directive: Patient has advance directive, copy not in chart Advance Directive not in Chart: Copy requested from other (Comment) (patient) Communication/Visual 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 : No Assistive Devices/DME: Contacts, Eyeglasses Discharge Planning Type of Residence: Private residence Living Arrangements: Spouse/significant other Support Systems: Spouse/significant other Assistance Needed: Spouse to provide discharge transportation Patient expects to be discharged to:: Private residence COVID Screening Covid-19 Screening In the last 10 days have you had any new or worsening cough, SOB, fever (>=100F), body aches, loss of taste or smell, diarrhea or vomiting, or sore throat?: No Have you had close contact with anyone with confirmed or suspected COVID-19 in the past 10 days?: No Do you live in or work in a congregate living facility (ex. assisted living/senior care facility, penitentiary, residential)?: No Have you tested positive for COVID-19 within the last 10 days?: No Have you previously tested positive for COVID-19? No Have you had a COVID -19 exposure within the past 14 days? No Were both or all people exposed wearing masks (cloth, isolation, surgical or N95)? N/A TESTING PLAN-See Instructions for plan We recommend you Self-Isolate after COVID Testing: Stay at home, if possible until your surgery date. Maintain a 6 foot distance from other people (social distancing). Avoid touching your eyes, nose and mouth with unwashed hands. Wash your hands often with soap and water for at least 20 seconds. Use an alcohol- based hand wood floor refinisher that contains at least 60% alcohol if soap and water are not available. ADDITIONAL COMMENTS/ FOLLOW UP * Pre-Procedure Instructions - Yesenia Cabrera RN - 03/31/2022 9:36 AM CDT [facility] PRE-SURGICAL NURSING INSTRUCTIONS Telephone Assessment General Information Discussed with Patient: 1. Surgery location provided to patient. 2. Arrival time and surgical time will be provided to the patient by their surgeon. 3. You should wear clothing that is clean, loose, comfortable and easy to get in and out of on the day of surgery. 4. You should leave your valuables and any jewelry at home. No metal or piercings are allowed in the operating room. 5. You should bring your insurance card, a photo ID (example: Resident Advisor's License) and a method of payment for any insurance copay, deductible or copay for discharge medications. 6. You should bring a complete, up-to-date list of all your medications on the day of surgery, including any over the counter medications or supplements you may take. 7. You should bring your Advanced Directive and/or Living Will with you on the day of surgery if you have not verified a copy is already in your Epic Chart. A Guide for Patients Having Surgery: Your Pathway to Excellent Care OUR GOAL IS TO PROVIDE YOU WITH EXCELLENT CARE Use this guide to learn about what you can do before, during and after surgery to help your recovery. You are the most important person on your health care team. By becoming informed and involved, you can contribute to the success of your surgery. ??? If your surgeon's directions are different than those in this guide, talk with your nurse or surgeon to confirm the information. ??? It is important that you understand how to take care of yourself at home after surgery. ??? Be sure to bring this guide with you on the day of surgery and take it home with you after surgery. ??? Write down questions for your nurse or surgeon on the last page of this booklet. Important pages to be reviewed BEFORE surgery: Page 1: QR codes for Surgery Center maps Page 3: Types of Anesthesia Page 5: Tips for the day & night before surgery Page 6: When to stop eating BEFORE surgery and examples of clear liquids Page 7-10: Preventing Infection: Chlorhexidine Gluconate (CHG) Bathing Instructions You may access A Guide for Patients Having Surgery: Your Pathway to Excellent Care by the followinglink: [email or web address] How To Prepare Your Skin For Surgery Below is the Pre-Surgical Bathing Protocol you should follow for your surgery. If your surgeon provides you different bathing instructions, please follow your surgeon's orders. Normal Bathing: Bathe with regular soap the night before and/or day of surgery. Normal Bathing Protocol Bathe with your normal soap the night before and the morning of surgery. ??? Wear clean clothes or pajamas to sleep in. ??? After showering DO NOT put on deodorant, hair products, conditioners, lotions, creams, powders,Vaseline or any non-essential products. ??? Place clean linens on your bed the night before surgery. ??? Shaving: You may shave your face, legs and underarms during your evening shower. Avoid shaving on the day of surgery. COVID TESTING PLAN: Please note, the below is the Pre-Procedure COVID Testing Plan for the [facility] for [facility]. Surgeon's offices may require additional testing. If so, the surgeon's office will reach out to the patient to discuss further testing. Patient's COVID-19 vaccination status: Up to date with 3 mRNA vaccines. Documentation of vaccination status is available in the Epic Immunization tab. COVID Test Plan: COVID Test not indicated related to patient is up to date on COVID 19 vaccine(s) and booster, if eligible.. If you are going to a [facility] Testing Site for COVID testing, please arrive at least 30 minutes PRIOR to lab closing time. If you have COVID testing or should have COVID testing for your surgery/procedure, please read below section: If you need to reschedule your COVID test to a different location or if your surgery gets rescheduled, you MUST call [phone] Sunday-Sunday 8am-4:30pm to get your COVID testing rescheduled or your lab order will not be available at Testing Sites. COVID Testing is only valid for up to 96 hours prior to surgery date, unless otherwise specified. If you are unable to reach staff at the above phone number, please call the [facility] Staff at [phone]. This number cannot order a lab test, but can attempt to contact the above number/staff to assist you. [facility] Staff are available Sunday- Sunday 8am-5pm. We recommend you Self-Isolate after COVID Testing: Stay at home, if possible, until your surgery date. Maintain a 6-foot distance from other people (social distancing) and wear a face mask if you areable. Avoid touching your eyes, nose and mouth with unwashed hands. Wash your hands often with soapand water for at least 20 seconds. Use an alcohol-based hand wood floor refinisher that contains at least 60% alcohol if soap and water are not available. These are general guidelines, but if have been told by aphysician that you should not perform any of the above, please follow physician's guidelines. All patients should read below section: All visitors/patients are being asked to wear a clean face mask when entering the hospital. COVID 19 Updates & Visitor Policy: Please access [email or web address] for the most updated information. Information on [facility]: Please view [email or web address] (Patient & Visitor Information) for additional details regarding Advanced Directive forms, AWARE, directions, parking information, lodging, Internet access, dining and more. Information on [facility] or [facility] ([facility]): Please view [email or web address] (Patient and Visitor Information) for parking/directions and more. For MyChart information, to activate account or password recovery, please go to [email or web address] or call [phone] (toll-free: [phone]). Information for Suicide Prevention: National Suicide Prevention Lifeline (6-081- 634-EIFU (7834)). Surgery Times: For patients having surgery @ [facility], [facility] or [facility] ([facility]), if your surgeon's office has not notified you of your surgery time by NOON THE BUSINESS DAY BEFORE your surgery, please call [phone] and ask for your surgeon's office . documented in this encounter Plan of Treatment Not on file documented as of this encounter Procedures Procedure Name Priority Date/Time Associated Diagnosis Comments EXAM UNDER ANESTHESIA - RECTUM 04/07/2022 8:14 AM CDT Fistula, anal Vaginal fistula POCT HCG, URINE Routine 04/07/2022 7:10 AM CDT documented in this encounter Results * POCT hCG, urine (04/07/2022 7:10 AM CDT) HCG, ur, POC Negative Lot Number [id number] QC Backgroud Clear Acceptable QC Control Line Acceptable Urine 04/07/2022 7:10 AM CDT Angela Morrison NP POINT OF CARE TEST ORDERABLES Final Result documented in this encounter Visit Diagnoses Diagnosis Anal fistula Vaginal fistula Other specified fistula involving female genital tract documented in this encounter Admitting Diagnoses Diagnosis Anal fistula Vaginal fistula Other specified fistula involving female genital tract documented in this encounter Administered Medications Inactive Administered Medications - up to 3 most recent administrations Medication Order MAR Action Action Date Dose Rate Site acetaminophen (TYLENOL) tablet 1,000 mg 1,000 mg, oral, Once, On Sun04/07/22 at 0800, For 1 dose, Pre-Op Given 04/07/2022 7:36 AM CDT 1,000 mg Carrier Fluids for Secondary Infusion - 0.9% Sodium Chloride 30 mL, intravenous, As needed, For priming tubing and/or flushing, Starting on Sun04/07/22 at 0707, Pre-Op, 0-250 ml/hr to flush line after IV infusions when no maintenance IV ordered. Infuse 30mL at the same rate as the secondary infusion. Run as primary IV, not intended for KVO. Lactated Ringer's (LR) infusion 30 mL/hr, intravenous, Continuous, Starting on Sun04/07/22 at 0745, Pre-Op Rate/Dose Change 04/07/2022 8:16 AM CDT 30 mL/hr Rate/Dose Verify 04/07/2022 8:14 AM CDT 30 mL/h r New Bag 04/07/2022 7:08 AM CDT 30 mL/hr 30 mL/hr lidocaine PF (XYLOCAINE) 10 mg/mL (1 %) preservative free injection 2-10 mg 2-10 mg (0.2-1 mL), other, Once as needed, pain with IV placement, Starting on Sun04/07/22 at 0707, For 1 dose, Pre-Op, Administer volume needed to infiltrate IV site. sodium chloride 0.9% flush 0.5-20 mL 0.5-20 mL, intra-catheter, As needed, line care, Starting on Sun04/07/22 at 0707, Pre-Op, Flush volume based on line type and size. Flush before and after each use. documented in this encounter Active and Recently Administered Medications Times are shown in CDT. Scheduled Medication Order 04/05/2022 04/06/2022 04/07/2022 acetaminophen (TYLENOL) tablet 1,000 mg 1,000 mg, oral, Once, On Sun04/07/22 at 0915, For 1 dose, Phase I, When able to tolerate PO., Indications: Pain acetaminophen (TYLENOL) tablet 1,000 mg 1,000 mg, oral, Once, On Sun04/07/22 at 0745, For 1 dose, Pre-Op 0745 (Due) acetaminophen (TYLENOL) tablet 1,000 mg (COMPLETED) 1,000 mg, oral, Once, On Sun04/07/22 at 0800, For 1 dose, Pre-Op 0736 (Given - Provid er: Yolanda Green RN) Continuous Medication Order 04/05/2022 04/06/2022 04/07/2022 Lactated Ringer's (LR) infusion 30 mL/hr, intravenous, Continuous, Starting on Sun04/07/22 at 0745, Pre-Op 0708 (New Bag - Prov ider: Yolanda Green RN)0814 (Rate/Dose Verify - Provider: Monico Pitt CRNA)0816 (Rate/Dose Change - Provider: Monico Pitt CRNA)1306 (Due: Stopped) PRN Medication Order 04/05/2022 04/06/2022 04/07/2022 bupivacaine-EPINEPHrine (MARCAINE with EPI) 0.25 %-1:200,000 preservative free injection (CANCELED) As needed, Starting on Sun04/07/22 at 0817, Intra-Op 0817 (Given - Provid er: Crispin Shen MD) Carrier Fluids for Secondary Infusion - 0.9% Sodium Chloride 30 mL, intravenous, As needed, For priming tubing and/or flushing, Starting on Sun04/07/22 at 0707, Pre-Op, 0-250 ml/hr to flush line after IV infusions when no maintenance IV ordered. Infuse 30mL at the same rate as the secondary infusion. Run as primary IV, not intended for KVO. diphenhydrAMINE (BENADRYL) injection 12.5 mg 12.5 mg, intravenous, Every 15 min PRN, itching, Starting on Sun04/07/22 at 0831, For 2 doses, Phase I, Max cumulative dose 50 mg., Indications: Itching fentaNYL (SUBLIMAZE) preservative free syringe 25 mcg 25 mcg, intravenous, Every 10 min PRN, 1st line for pain, Starting on Sun04/07/22 at 0831, Phase I, Switch to 2nd line analgesic order if pain is uncontrolled or increasing after 2 doses. Notify Anesthesiologist if total PACU dose reaches 100 mcg and pain score 5/10 or more., Indications: Pain fentaNYL (SUBLIMAZE) preservative free syringe 50 mcg 50 mcg, intravenous, Every 10 min PRN, 2nd line for pain, Starting on Sun04/07/22 at 0831, Phase I, May administer 10 mintes after 2nd dose of 1st line analgesic agent for uncontrolled or increasing pain. Revert to 1st line dose if POSS of 3. Notify Anesthesiologist if total PACU dose reaches 100 mcg and pain score 5/10 or more., Indications: Pain hydrALAZINE (APRESOLINE) injection 5 mg 5 mg, intravenous, Administer over 2 Minutes, Every 15 min PRN, high blood pressure, Starting on Sun04/07/22 at 0831, Phase I, Max cumulative dose 20 mg. Dose if systolic BP greater than 180 AND heart rate less than 70., Indications: hypertension labetaloL (NORMODYNE,TRANDATE) injection 5 mg 5 mg, intravenous, at 30 mL/hr, Administer over 2 Minutes, Every 10 min PRN, high blood pressure, Starting on Sun04/07/22 at 0831, Phase I, Max cumulative dose 20 mg. Dose if systolic blood pressure greater than 180 AND HR greater than 70. lidocaine PF (XYLOCAINE) 10 mg/mL (1 %) preservative free injection 2-10 mg 2-10 mg (0.2-1 mL), other, Once as needed, pain with IV placement, Starting on Sun04/07/22 at 0707, For 1 dose, Pre-Op, Administer volume needed to infiltrate IV site. naloxone (NARCAN) 0.4 mg/mL injection 0.04-0.4 mg 0.04-0.4 mg, intravenous, Once as needed, other, excessive sedation/respiratory depression, Starting on Sun04/07/22 at 0831, For 1 dose, Phase I, Dilute 0.4 mg with 9 mL NS (final concentration 0.04 mg/mL). For respiratory depression (respiratory rate less than 6), administer 0.4 mg IVP over 30 seconds. For excessive sedation administer 0.04 mg (1 mL) every 1 minute until desired level of alertness. For IV, administer over 30 seconds., Indications: Opioid Toxicity oxyCODONE (ROXICODONE) tablet 5 mg 5 mg, oral, Once as needed, 1st line for pain, Starting on Sun04/07/22 at 0831, For 1 dose, Phase I, When able to tolerate PO., Indications: Pain prochlorperazine (COMPAZINE) injection 10 mg 10 mg, intravenous, Administer over 2 Minutes, Once as needed, nausea, vomiting, Starting on Sun04/07/22 at 0831, For 1 dose, Phase I sodium chloride 0.9% flush 0.5-20 mL 0.5-20 mL, intra-catheter, As needed, line care, Starting on Sun04/07/22 at 0707, Pre-Op, Flush volume based on line type and size. Flush before and after each use. sterile water irrigation (CANCELED) As needed, Starting on Sun04/07/22 at 0819, Intra-Op 0819 (Given - Provid er: Crispin Shen MD) documented in this encounter Orders Medications Ordered That Max ht Not Have Been Administered Count Last Ordered Date First Ordered Date acetaminophen (TYLENOL) tablet 1,000 mg 2 0 04/07/2022 bupivacaine-EPINEPHrine (MAR LARISA with EPI) 0.25 %-1:200,000 preservative free injection 1 04/07/2022 Carrier Fluids for Secondary Infusion - 0.9% Sodium Chloride 1 04/07/2022 diphenhydrAMINE (BENADRYL) i njection 12.5 mg 1 04/07/2022 fentaNYL (SUBLIMAZE) preserv ative free syringe 25 mcg 1 04/07/2022 fentaNYL (SUBLIMAZE) preserv ative free syringe 50 mcg 1 04/07/2022 hydrALAZINE (APRESOLINE) injection 5 mg 1 0 04/07/2022 labetaloL (NORMODYNE,TRANDAT E) injection 5 mg 1 04/07/2022 lidocaine PF (XYLOCAINE) 10 mg/mL (1 %) preservative free injection 2-10 mg 1 04/07/2022 naloxone (NARCAN) 0.4 mg/mL injection 0.04-0.4 mg 1 04/07/2022 oxyCODONE (ROXICODONE) tablet 5 mg 1 2021 prochlorperazine (COMPAZINE) injection 10 mg 1 04/07/2022 sodium chloride 0.9% flush 0.5-20 mL 1 03/20 sterile water irrigation 1 04/07/2022 documented in this encounter Care Teams Centralized Traffic Control Operator Relationship Specialty Start Date End Date Crispin Shen MD Surgeon Colon and Rectal Surgery 09/09/20 Kemi Schmitz [id number] [id number] Surgeon Colon and Rectal Surgery 05/16/21 documented as of this encounter
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
--- OUTSIDE RECORDS SUMMARY | 2024-08-18 09:54 | XMS_ITS | Encounter Summary ---
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] Vaginal fistula [N82.8] Procedures MD SURG DIAGNOSTIC EXAM, ANORECTAL EXAM UNDER ANESTHESIA - RECTUM Referral ID Status Reason Start Date Expiration Date Visits Re quested Visits Authorized [id number] 1 1 Encounter Details Date Type Department Care Team (Late st Contact Info) Description 04/07/2022 8:30 AM CDT - 04/07/2022 9:00 AM CDT Surgery [facility] Surgery at [facility] [address] [place] [address] Crispin Shen MD [id number] [place] [address] EXAM UNDER ANESTHESIA - RECTUM Surgery Details Date/Time Status Location OR Service Patient Class Case Cl ass Case Type Trauma Case? 04/07/2022 8:30 AM Posted [facility] Operating Room IN OR 2 Colorectal Outpatient Elective Panel 1 Procedure LRB Anes Op Region Wound Class Comments EXAM UNDER ANESTHESIA - RECTUM N/A Monitor Anesthesia Care Anus N/A Surgeon Surgeon Role Service Panel Crispin Shen MD Primary Colorectal 1 documented in this encounter Social [...] often do you attend chur ch or muslim services? 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 If prescribed Percocet, [place], Tylenol #3, or any agent containing acetaminophen [...] Office for All Questions and Concerns Office: [phone] (Sunday - Sunday, 8am to 4pm) Exchange: [phone] (after hours, holidays and weekends) * Attachments The following attachments cannot be sent through Care Everywhere. * [facility] PATHWAY TO EXCELLENT CARE AFTER SURGERY documented [...] EXAM UNDER ANESTHESIA - RECTUM Cosigned by rCispin Shen MD at 04/07/2022 8:01 AM CDT Source Note - Angela Morrison NP - 03/31/2022 10:46 AM CDT Images from the original note were not included. Center for Preoperative Assessment and Planning Preoperative Evaluation Record Evaluation type/location: [place] [place] [facility] Planned procedure [facility] Date: 03/31/22 NOTE: This note [...] Cardiovascular Pertinent negatives: hypertension ; CAD ; NE ; CABG ; valvular heart disease; valve [...] before surgery multivitamin capsule 03/30/2022 -- -- Tyra Crawford MD neomycin (MYCIFRADIN) [...] filed for this visit. Relevant diagnostics: ECG(s): 12/16/21 Care Everywhere no tracing Sinus rhythm 77 [...] Preoperative Assessment and Planning CPAP Clinic Location: [facility] The night before your surgery: [...] surgery * If having surgery at [facility], you may want to bring a credit card if you want to use our Mobile Pharmacy for your discharge medications. Mobile pharmacy is not available at [facility], the [facility], or [facility] [place] [facility]. Outpatient Surgery: * You must have a [...] Planning Perioperative Nursing Note Telephone Preoperative Evaluation ([facility]) - TELEPHONE ONLY, NO PHYSICAL EXAM Date: [...] 50 mg by mouth nightly Implants Implant [place] [employer] [facility] [id number] Biodesign Surgisis 9.5x.6cm Set Fistula Plug Without Button [place] - [id number] - Implanted Rectum Inventory item: [employer] B[employer]ign Surgisis 9.5x.6cm Set Fistula Plug Without Button [place] [id number] Model/Cat number: [id number] Mail Handler Assistant: Mayi Zhaopin Lot number: [id number] As of 03/04/2021 Status: Implanted SKIN Piercings [...] Chart: Copy requested from other (Comment) (patient) Communication/Pals Specialist Needs Communication Needs: Contacts, Glasses Patient's Preferred Language: Greenlandic Is an senior management consultant needed? : No Assistive Devices/DME: Contacts, Eyeglasses [...] in a congregate living facility (ex. assisted living/mcc facility, penitentiary, halfway)?: No Have you tested positive for COVID-19 [...] 20 seconds. Use an alcohol- based hand fashion director party plan sales that contains at least 60% alcohol if [...] your insurance card, a photo ID (example: Singing Teacher's License) and a method of payment for [...] Pathway to Excellent Care by the followinglink: [email or web address] How To Prepare Your Skin [...] eligible.. If you are going to a [facility] Testing Site for COVID testing, please arrive at least 30 minutes PRIOR to lab closing time. If you have COVID testing or should have COVID testing for your surgery/procedure, please read below section: If you need to reschedule your COVID test to a different location or if your surgery gets rescheduled, you MUST call [phone] Sunday-Sunday 8am-4:30pm to get your COVID testing rescheduled or your lab order will not be available at Testing Sites. COVID Testing is only valid for up to 96 hours prior to surgery date, unless otherwise specified. If you are unable to reach staff at the above phone number, please call the CPAP Staff at [phone]. This number cannot order a lab test, [...] least 20 seconds. Use an alcohol-based hand fashion director party plan sales that contains at least 60% alcohol if [...] the most updated information. Information on [facility]: Please view [email or web address] (Patient & Visitor Information) for additional details regarding Advanced Directive forms, AWARE, directions, parking information, lodging, Internet access, dining and more. Information on [facility] or [facility] [place] ([facility]): Please view [email or web address] (Patient and Visitor Information) for parking/directions and more. For MyChart information, to activate account or password recovery, please go to [email or web address] or call [phone] (toll-free: [phone]). Information for Suicide Prevention: National Suicide Prevention Lifeline (6-356- 259-WXMQ (9515)). Surgery Times: For patients having surgery @ [facility], [facility] or [facility] ([facility]), if your surgeon's office has not notified you of your surgery time by NOON THE BUSINESS DAY BEFORE your surgery, please call [phone] and ask for your surgeon's office . [...] Other specified fistula involving female genital tract Fistula, anal Anal fistula Vaginal fistula Other specified fistula [...] Given 04/07/2022 7:36 AM CDT 1,000 mg bupivacaine-EPINEPHrine (MARCAINE with EPI) 0.25 %-1:200,000 preservative free injection As needed, Starting on Sun04/07/22 at 0817, Intra-Op Given 04/07/2022 8:17 AM CDT 40 mL Carrier Fluids for Secondary Infusion - 0.9% [...] and after each use. sterile water irrigation As needed, Starting on Sun04/07/22 at 0819, Intra-Op Given 04/07/2022 8:19 AM CDT 250 mL documented in this encounter Active and Recently [...] (TYLENOL) tablet 1,000 mg 2 0 04/07/2022 Carrier Fluids for Secondary Infusion - [...] chloride 0.9% flush 0.5-20 mL 1 03/20 documented in this encounter Care Teams Cover Marker Relationship Specialty Start Date End Date Crispin Shen MD Surgeon Colon and Rectal Surgery 09/09/20 Kemi Schmitz [address] [place] [address] Surgeon Colon and Rectal Surgery 05/16/21 documented as of this encounter
--- OUTSIDE RECORDS SUMMARY | 2024-08-18 09:54 | XMS_ITS | Encounter Summary ---
Author Organization [facility] Address [address] [place] [address] Care Team Providers Care Apple Turner Name Role Phone Crispin Shen MD Unavailable [phone] Kemi Schmitz Unavailable Reason for Visit * Auth/Cert Specialty Diagnoses / Procedures Referred By Contac t Referred To Contact Diagnoses [facility] ([facility]) (HCC) Colostomy in place (CMS/[facility]) ([facility]) [Z93.3] Procedures TX CLOSE ENTEROSTOMY,RESEC+COLOREC ANAS COLOSTOMY TAKEDOWN Referral ID Status Reason Start Date Expiration Date Visits Re quested Visits Authorized [id number] 1 1 Encounter Details Date Type Department Care Team (Late st Contact Info) Description 05/18/2022 7:15 AM CDT - 05/18/2022 10:15 AM CDT Surgery [facility] Operating Room [address] [place] [address] Crispin Shen MD [id number] [place] [address] COLOSTOMY TAKEDOWN Surgery Details Date/Time Status Location OR Service Patient Class Case Class Case Type Trauma Case? 05/18/2022 7:15 AM Posted [facility] OPERATING ROOM OR 03 Colorectal Surgery Admit Elective Panel 1 Procedure LRB Anes Op Region Wound Class Comments COLOSTOMY TAKEDOWN N/A General Abdomen Class II - Clean Contaminated Surgeon Surgeon Role Service Panel Crispin Shen [...] often do you attend chur ch or protestant services? 1 to 4 times per year [...] on file Legal Sex Female 9:36 AM [employer]TAINMENT [employer]ODUCTION [employer]ESSION[employer] Gender Identity Female 11/16/2020 2:58 PM CDT Sexual Orientation Straight 11/16/2020 2: 58 PM CDT documented as of this encounter Last Filed Vital Signs Vital Sign Reading Time Taken Comments Blood Pressure 103/57 05/18/2022 10:15 AM CDT Pulse 67 05/18/2022 10:15 AM CDT Temperature 36.4 ??C (97.5 ??F) 05/18/2022 10:15 AM C DT Respiratory Rate 14 05/18/2022 10:15 AM CDT Oxygen Saturation 95% 05/18/2022 10:15 AM CDT Inhaled Oxygen Concentration - - Weight 93 kg (205 lb) 05/18/2022 5:27 AM CDT Height 177.8 cm (5' 10 ) 05/18/2022 5:27 AM CDT Body Mass Index 29.41 05/18/2022 5:27 AM CDT documented in this encounter Discharge Summaries * Jared Larose MD - 05/20/2022 1:59 PM CDT Inpatient Discharge Summary BRIEF OVERVIEW Admitting Provider: Crispin Shen MD Discharge Provider: Crispin Shen MD Primary Care Physician at Discharge: No primary care provider on file. None Admission Date: 05/18/2022 Discharge Date: 05/20/2022 Admission Location: [facility] Problems/Diagnoses: Principal Problem: Colostomy in place (CMS/HCC) (HCC) Resolved Problems: No resolved hospital problems. 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 She has a diverting loop colostomy. She has already had her Hypaque study back in the early summer and they show no fistula. Hospital Course: Ms. Belem Smith with a diagnosis of Col[facility] in [facility] (HCC), was electively taken tothe operating room on 05/18/2022 and underwent a Procedure(s) (LRB): COLOSTOMY TAKEDOWN (N/A) with Dr. Crispin Shen MD. For full operative details, please see dictated summary. The patient tolerated the procedure well and post operatively was admitted to the Colorectal Surgery Floor, on the enhanced recovery pathway. There, her diet was advanced and her pain was c ontrolled on IV and oral medication. By day of discharge, 05/20/22: The patient's pain was well controlled on oral medications. The patient was participating in IS and had stable respirations with good oxygen saturations on room air. The patient's IVF had been discontinued. The patient was tolerating a regular/ileostomy diet. The patient was voiding spontaneously. The patient ambulated without difficulty. Throughout the patient's hospital stay, DVT prophylaxis was administered via SCDs and subcutaneous injections. The patient was deemed fit for discharge to Home. Active Issues Requiring Follow-up: Routine postoperative follow-up including staple removal Test Results Pending at Discharge: Operative Procedures Performed: Procedure(s): COLOSTOMY TAKEDOWN Other Procedures: None Pertinent Test Results: No orders to display Abnormal Labs Reviewed CBC WITHOUT DIFFERENTIAL - Abnormal; Notable for the following components: Result Value WBC 19.2 (*) Hgb 11.3 (*) Hct 33.9 (*) RBC 3.68 (*) All other components within normal limits Narrative: Obtain POD 0 at 2200. BASIC METABOLIC PANEL - Abnormal; Notable for the following components: Sodium 132 (*) All other components within normal limits Narrative: Obtain POD 0 at 2200. BASIC METABOLIC PANEL - Abnormal; Notable for the following components: Sodium 130 (*) Calcium 8.4 (*) All other components within normal limits CBC WITHOUT DIFFERENTIAL - Abnormal; Notable for the following components: Hgb 10.2 (*) Hct 29.5 (*) RBC 3.24 (*) All other components within normal limits Discharge Details Physical Exam at Discharge: Discharge Condition: good Pulse: 93 Resp: 18 BP: 121/67 Temp: 36.8 ??C (98.2 ??F) Weight: 93 kg (205 lb) Pertinent Exam Findings at Discharge: See last progress note Discharge Disposition: Discharge to home or self care Code Status at Discharge: Full Code Discharge Instructions: See AVS Other Instructions POCT hCG, urine This order was created through External Result Entry Discharge Medications: Current Medications TAKE these medications acetaminophen 500 mg capsule Take 2 capsules (1,000 mg total) by mouth every 8 (eight) hours For: pain ascorbic acid 1,000 mg tablet Take 1,000 mg by mouth nightly For: inadequate vitamin C, supplement Commonly known as: VITAMIN C cholecalciferol 2000 unit capsule Take 2,000 Units by mouth nightly For: low vitamin D levels Commonly known as: VITAMIN D-3 enoxaparin 40 mg/0.4 mL syringe Inject 0.4 mL (40 mg total) under the skin daily for 21 days For: deep vein thrombosis prevention Commonly known as: LOVENOX ibuprofen 600 mg tablet Take 1 tablet (600 mg total) by mouth every 8 (eight) hours For: pain Commonly known as: ADVIL,MOTRIN Start taking on: May 21, 2022 LORazepam 0.5 mg tablet Take 0.5 mg by mouth 2 (two) times a day as needed for anxiety Commonly known as: ATIVAN lysine 1,000 mg tablet Take 1,000 mg by mouth nightly For: supplement metroNIDAZOLE 500 mg tablet Take one tablet at 1pm, 2pm, and 10pm the day before surgery Commonly known as: FLAGYL multivitamin capsule Take 1 capsule by mouth nightly For: treatment to prevent vitamin deficiency neomycin 500 mg tablet Take two tablets by mouth at 1pm, 2pm, and 10pm the day before surgery Commonly known as: MYCIFRADIN omega-3 fatty acids-fish oil 300-1,000 mg capsule Take 1 g by mouth nightly For: for supplement ondansetron ODT 8 mg disintegrating tablet Take one tablet at 11am when starting bowel prep, take one tablet as needed every six to eight hours after Commonly known as: ZOFRAN-ODT oxyCODONE 5 mg immediate release tablet Take 1 tablet (5 mg total) by mouth every 4 (four) hours as needed (intolerable pain) For: pain Commonly known as: ROXICODONE polyethylene glycol 17 gram packet Take 1 packet (17 g total) by mouth daily as needed for constipation For: constipation Commonly known as: MIRALAX psyllium (aspartame) SF 3.4 gram packet Take 1 packet by mouth daily as needed (constipation) Commonly known as: METAMUCIL SF turmeric root extract 500 mg capsule Take 500 mg by mouth nightly For: for supplement zinc 50 mg tablet Take 50 mg by mouth nightly For: for supplement Outpatient Follow-Up: Cosigned by Alisson Day MD at 05/22/2022 1:15 PM CDT documented in this encounter Discharge Instructions * Discharge Instructions* Jared Larose MD - 05/20/2022 1:54 PM CDT DISCHARGE INSTRUCTIONS FOR COLORECTAL SURGERY WITHOUT STOMA Call 911 or go to the closest emergency room if you are having: * Chest pain. * Suddenly have a hard time breathing. * Fainting or loss of consciousness. Call Your Doctor if: * You have a fever of greater than 101.5 F. * You develop nausea to the point you cannot tolerate liquids or you develop vomiting. * You develop worsening abdominal pain or incisional pain. * You have pus, bright red blood or foul smelling drainage from incision. * You lose more than 1 cup of blood from your wound, rectum or ostomy. * You have more than 8-10 bowel movements in 24 hours. * You are unable to urinate after 8 hours. * You have dizziness, lightheadedness, extreme fatigue. Diet: Regular Diet. Activity: * No lifting more then 10 pounds or strenuous exercise until approved by MD. * No driving for at least 2 weeks and while taking narcotic pain medications. Care Instructions: * Unless you are told otherwise, you may shower. * No tub baths until your doctor says it???s okay. Follow Up: * Please call to schedule a follow up appointment in 4 weeks with your doctor. * Please also schedule an appointment to have your ashwin removed 10-14 days following surgery if you are not receiving home health care services. Additional Information: Prescriptions will only be refilled during our normal office hours of 8:30 AM- 4:00 PM Sunday through Sunday. No prescriptions will be refilled over the weekend. Please plan ahead if you know that youwill need a medication and allow a 24 hour period for it to be refilled. ADDITIONAL INSTRUCTIONS: Reutrn to regular fluid intake Active issues requiring follow up: staple removal in 10-14 days after discharge Test results pending at discharge: none documented in this encounter Medications at Time [...] 09/11/19 24 documented as of this encounter Ordered Prescriptions Prescription Sig Dispense Quantity Refills Last Filled Start Date End Date polyethylene glycol (MIRALAX) 17 gram packetIndications :constipation Take 1 packet (17 g total) by mouth daily as needed for constipation 30 packet 05/20/2022 3 psyllium, aspartame, SF (METAMUCIL SF) 3.4 gram packet Take 1 packet by mouth daily as needed (constipation) 30 packet 05/20/2022 3 oxyCODONE (ROXICODONE) 5 mg immediate release tabletIndications :Pain Take 1 tablet (5 mg total) by mouth every 4 (four) hours as needed (intolerable pain) 15 tablet 05/20/2022 3 ibuprofen (ADVIL,MOTRIN) 600 mg tabletIndications :Pain Take 1 tablet (600 mg total) by mouth every 8 (eight) hours 90 tablet 05/21/2022 2 enoxaparin (LOVENOX) 40 mg/0.4 mL syringeIndication s:Deep Vein Thrombosis Prevention Inject 0.4 mL (40 mg total) under the skin daily for 21 days 8.4 mL 05/20/2022 2 acetaminophen 500 mg capsuleIndication s:Pain Take 2 capsules (1,000 mg total) by mouth every 8 (eight) hours 180 tablet 05/20/2022 2 documented in this encounter Discharge Disposition Disposition Code Departure Means Destination Discharge to home or self care documented in this encounter Progress Notes * Jared Larose MD - 05/20/2022 6:51 AM CDT [facility] Daily Progress Note Colon and Rectal Surgery PATIENT NAME: Belem Smith : 1970 ADMIT DATE: 05/18/2022 5:04 AM LOS: 2 Subjective CHIEF COMPLAINT: Colostomy in place (CMS/HCC) (HCC) INTERVAL HISTORY: No acute events overnight. Patient feels well, she is tolerating diet without nausea or vomiting. She endorses bowel movements, without melena or hematochezia. Her pain is well controlled. Hyponatremia to 130, asymptomatic Objective MEDICATIONS: Scheduled: acetaminophen, 1,000 mg, oral, Q6H CARO enoxaparin, 40 mg, subcutaneous, Daily-2100 gabapentin, 300 mg, oral, Q12H CARO ketorolac, 15 mg, intravenous, Q8H CARO Followed by [START ON 05/21/2022] ibuprofen, 600 mg, oral, Q8H CARO magnesium oxide, 400 mg, oral, Once scopolamine, 1 patch, transdermal, Q72H sodium chloride 0.9%, 0.5-20 mL, intra-catheter, Q8H [facility] Infusions: PRN: sodium chloride 0.9% HYDROmorphone ondansetron oxyCODONE prochlorperazine sodium chloride 0.9% VITALS: 24hr Min/Max: Temp Min: 36.2 ??C (97.1 ??F) Max: 36.7 ??C (98.1 ??F) Pulse Min: 67 Max: 90 BP Min: 110/65 Max: 123/80 Resp Min: 16 Max: 18 SpO2 Min: 95 % Max: 100 % Most Recent: Vitals: 05/19/22 0740 05/19/22 1300 05/19/22 1927 05/20/22 0345 BP: 123/80 118/67 118/75 110/65 BP Location: Right arm Right arm Right arm Right arm Patient Position: Sitting Sitting Lying;HOB 30 degrees Pulse: 67 83 90 76 Resp: 16 16 18 16 Temp: 36.7 ??C (98 ??F) 36.2 ??C (97.1 ??F) 36.2 ??C (97.1 ??F) 36.7 ??C (98.1 ??F) TempSrc: Oral Temporal Temporal Oral SpO2: 100% 99% 95% 98% Weight: Height: I/O last 2 completed shifts: In: 4499.1 [P.O.:3305; I.V.:1194.1] Out: 4300 [Urine:4300] Intake/Output Summary (Last 24 hours) at 05/20/2022 0651 Last data filed at 05/20/2022 0350 Gross per 24 hour Intake 4255 ml Output 4400 ml Net -145 ml PHYSICAL EXAM: Constitutional: NAD, well developed, well nourished. A&O x 4. HEENT: PERRL, EOMI, anicteric. Lungs: Unlabored breathing. Trachea midline. Cardiovascular: Regular rate. No JVD. GI: Abdomen soft, appropriately tender to palpation, non-distended. Ostomy takedown site loosely approximated with ashwin, serosanguineous drainage as expected. Skin: No new rashes, lesions or bruises Extremities: Normal without edema or cyanosis Neurologic: Non-focal, CNII-XII grossly intact Psychiatric: Normal affect and mood. LAB/ RADIOLOGY/ DIAGNOSTIC REVIEW: Recent Labs Lab Units 05/20/22 0327 05/18/22 2113 WBC K/cumm 8.9 19.2* HEMOGLOBIN g/dL 10.2* 11.3* HEMATOCRIT % 29.5* 33.9* PLATELETS K/cumm 162 231 Recent Labs Lab Units 05/20/22 0331 05/18/22 2113 SODIUM mmol/L 130* 132* POTASSIUM PLASMA mmol/L 3.9 4.5 CHLORIDE mmol/L 98 99 CO2 mmol/L 27 25 BUN SERUM mg/dL 8 8 CREATININE mg/dL 0.70 0.70 GLUCOSE mg/dL 96 144 CALCIUM mg/dL 8.4* 8.6 I have reviewed the laboratory results. ASSESSMENT/ PLAN: Belem Smith is a 51 y.o. female with Colostomy in place ([facility]) ([facility]), status post colostomy takedown. Now POD1, will moitor for resolution of hyponatremia nad likely dishcarge today Pain: Scheduled tylenol, NSAID, gabapentin, PRN oxycodone Diet: regular, dc entereg DVT PPx: lovenox, SCDs Activity: with assist, PT, OT Dispo: floor Lovenox needed at discharge: no Home health needed at discharge: no Jared Larose MD Cosigned by Alisson Day MD at 05/22/2022 1:31 PM CDT Associated attestation - Alisson Day MD - 05/22/2022 1:31 PM CDT I have seen and examined the patient on 05/20/22. I agree with the findings and plan of care as documented in the resident's/fellow's note. * Vargas Stratton, PT - 05/19/2022 11:45 AM CDT [facility] Physical Therapy Treatment Patient Name: Belem Smith Date of Service: 05/19/2022 Date of : 1970 Age: 51 y.o. female Room: [address] Admit Date: 05/18/2022 Attending Provider: Crispin Shen MD Primary Diagnosis: Colostomy in place ([facility]) ([facility]) Subjective HPI: Belem Smith is a 51 y.o. female s/p colostomy closure on 05/18/22. Patient is agreeable to physical therapy treatment. Precautions: colorectal and fall risk Patient Comment: Patient reports she has been walking on her own. Objective Vitals: Comments: Patient does not display signs/symptoms of abnormal vitals. Activity Tolerance: Endurance: Endurance does not limt participation in activity. Pain Assessment: Pre-treatment pain: 2 /10 Post-treatment pain: 2 /10 Location: Abdomen Pain intervention: Ambulation and Physical therapy Cognition: Overall Cognitive Status: WFL to complete therapy related tasks Sensation: Within functional limits. No reports of numbness or tingling bilaterally in lower extremities. Lower Extremity Assessment: Strength Comments: Bilateral lower extremity strength grossly assessed to be within functional limits based on observation of patient's ability to perform functional mobility with independence. Did not formally test due to recent surgery. Bed Mobility: Not assessed. Patient was already walking independently in the hallways and went to chair at conclusion of therapy session. Transfers: Patient performs stand to sit with no device and independence. Gait: Patient ambulates x 800 feet with no device and independence. Stairs: Patient negotiates 4 stairs with 1 hand railing and distant supervision for safety. Gait belt was used for all out of bed mobility. Therapeutic Exercise: Home walking program Balance Static Sitting Balance Support: feet supported Surface: bedside chair Level of assist: independent Comments: Steady, safe Static Standing Balance Support: feet supported Surface: floor Level of assist: independent Comments: Steady, safe Dynamic Standing Balance Support: feet supported Surface: floor Level of assist: distant supervision Comments: Steady, safe Assessment Prognosis: Good Response to today???s treatment: Good Completed patient handoff and notified RN of patient???s location and functional status upon completion of session. Patient tolerated physical therapy session well. Patient is already walking hallways independently upon entering patient's room. Patient ambulated 800' with no assistive device and independently. Patient encouraged to walk in halls independently.. Patient negotiates 4 stairs with 1 handrails and distant supervision. Patient is seated in chair at conclusion of therapy session. Patient has call light within reach and RN is notified of patient's status. Patient demonstrates deficiencies in the following areas: decreased range of motion, decreased mobility, and due to colorectal surgery precautions. Patient would benefit from physical therapy intervention to address these impairments and functional limitations. Education: Patient has been educated on the role of physical therapy, safety, precautions, mobilitytraining, stairs, and home walking program. Education completed via explanation, teach back, and demonstration. Patient verbalized understanding and demonstrated understanding. Handouts Issued: None issued this visit Patient at high risk for: Falls Care Plan Goals established: 05/18/22 Goals to be completed by: 05/23/2022 The patient will perform bed mobility including supine to/from sit with independence in order to safely return home by the above completion date. Comments: Adequate for discharge The patient will perform sit to/from stand transfers using none and independence in order to safelyreturn home by the above completion date. Comments: Completed The patient will ambulate 650 feet using none and distant supervision in order to safely return home by the above completion date. Comments: Completed The patient will ascend/descend 4 stairs with single handrail and close supervision in order to safely return home by the above completion date. Comments: Completed The patient will ascend/descend a curb step with no device and close supervision in order to safelyreturn home by the above completion date. Comments: Initiated-Discontinued 05/19/22 The patient will recall colorectal precautions and log roll technique for bed mobility with no cueing in order to ensure patient maintains precautions by the above completion date. Comments: Completed The patient will perform home walking program per protocol with family/caregiver assistance as needed in order to increase strength/increase endurance by the above completion date. Comments: Completed Plan Physical therapy frequency: Discharge from this Service If this is the last note, consider this the discharge summary Physical Therapy interventions: Bed mobility, Endurance training, Functional activity, Functional transfer training, Gait training, Stair training, Therapeutic activity Recommended equipment to safely discharge: None Recommended method of transportation at discharge: Personal vehicle with family Referrals Recommended: None Patient okay to discharge: Yes Discharge Recommendation: Home with family, Home with intermittent assist Discharge destination and transportation depends not only upon the therapists??? recommendations, but also on insurance authorization, bed availability, acceptance to the facility, medical diagnosis,and any other specialized needs. Case Management and/or Social Work will work with the patient and their interdisciplinary team to determine the most appropriate discharge disposition. Vargas Stratton PT * Cyndee Romero, TRAVELING PHLEBOTOMIST - 05/19/2022 11:35 AM CDT [facility] Daily Progress Note Colon and Rectal Surgery PATIENT NAME: Belem Smith : 1970 ADMIT DATE: 05/18/2022 5:04 AM LOS: 1 Subjective CHIEF COMPLAINT: Colostomy in place (CMS/HCC) (HCC) INTERVAL HISTORY: No acute events overnight. Patient feels well, she is tolerating clear liquids without nausea or vomiting. She endorses bowel movements, without melena or hematochezia. Her pain is well controlled Objective MEDICATIONS: Scheduled: acetaminophen, 1,000 mg, oral, Q6H CARO enoxaparin, 40 mg, subcutaneous, Daily-2100 gabapentin, 300 mg, oral, Q12H CARO ketorolac, 15 mg, intravenous, Q8H CARO Followed by [START ON 05/21/2022] ibuprofen, 600 mg, oral, Q8H CARO scopolamine, 1 patch, transdermal, Q72H sodium chloride 0.9%, 0.5-20 mL, intra-catheter, Q8H CARO Infusions: PRN: sodium chloride 0.9% HYDROmorphone ondansetron oxyCODONE prochlorperazine sodium chloride 0.9% VITALS: 24hr Min/Max: Temp Min: 36.2 ??C (97.2 ??F) Max: 36.9 ??C (98.5 ??F) Pulse Min: 66 Max: 116 BP Min: 100/52 Max: 123/80 Resp Min: 16 Max: 18 SpO2 Min: 92 % Max: 100 % Most Recent: Vitals: 05/18/22201105/18/22 2355 05/19/22 0455 05/19/22 0740 BP: 103/61 118/84 123/80 BP Location: Right arm Right arm Right arm Patient Position: Lying;HOB 30 degrees Sitting Sitting Pulse: 89 98 66 67 Resp: 18 16 16 Temp: 36.7 ??C (98.1 ??F) 36.2 ??C (97.2 ??F) 36.7 ??C (98 ??F) TempSrc: Temporal Temporal Oral SpO2: 92% 100% 100% Weight: Height: I/O last 2 completed shifts: In: 8304.1 [P.O.:3570; I.V.:4634.1; IV Piggyback:100] Out: 4025 [Urine:3995; Emesis/NG output:10; Blood:20] Intake/Output Summary (Last 24 hours) at 05/19/2022 1135 Last data filed at 05/19/2022 1035 Gross per 24 hour Intake 6052.08 ml Output 3950 ml Net 2102.08 ml PHYSICAL EXAM: Constitutional: NAD, well developed, well nourished. A&O x 4. HEENT: PERRL, EOMI, anicteric. Lungs: Unlabored breathing. Trachea midline. Cardiovascular: Regular rate. No JVD. GI: Abdomen soft, appropriately tender to palpation, non-distended. Ostomy takedown site loosely approximated with ashwin, serosanguineous drainage as expected. Skin: No new rashes, lesions or bruises Extremities: Normal without edema or cyanosis Neurologic: Non-focal, CNII-XII grossly intact Psychiatric: Normal affect and mood. LAB/ RADIOLOGY/ DIAGNOSTIC REVIEW: Recent Labs Lab Units 05/18/222112 WBC K/cumm 19.2* HEMOGLOBIN g/dL 11.3* HEMATOCRIT % 33.9* PLATELETS K/cumm 231 Recent Labs Lab Units 05/18/222112 SODIUM mmol/L 132* POTASSIUM PLASMA mmol/L 4.5 CHLORIDE mmol/L 99 CO2 mmol/L 25 BUN SERUM mg/dL 8 CREATININE mg/dL 0.70 GLUCOSE mg/dL 144 CALCIUM mg/dL 8.6 I have reviewed the laboratory results. ASSESSMENT/ PLAN: Belem Smith is a 51 y.o. female with Colostomy in place ([facility] ([facility]), status post colostomy takedown. Now POD1 Pain: Scheduled tylenol, NSAID, gabapentin, PRN oxycodone Diet: regular, dc entereg DVT PPx: lovenox, SCDs Activity: with assist, PT, OT Dispo: floor Lovenox needed at discharge: no Home health needed at discharge: no Cyndee Romero NP Cosigned by Alisson Day MD at 05/19/2022 5:22 PM CDT Associated attestation - Alisson Day MD - 05/19/2022 5:22 PM CDT I have seen and examined the patient on 05/19/2022. I agree with the findings and plan of care as documented in the resident/fellow/ TRAVELING PHLEBOTOMIST note. documented in this encounter H&P Notes * Crispin Shen MD - 05/18/2022 7:01 AM CDT I have reviewed the H&P, examined the patient, and endorse the findings as written. Plan of Care : Based on the above findings, I consider Belem Smith to be an acceptable risk for: Procedure(s): COLOSTOMY TAKEDOWN Source Note - Crispin Shen MD - 05/09/2022 8:30 AM [...] I have looked at those results from [facility]. They show no fistula. Review of Systems: [...] leak, damage to other organs, and medical com plications. They understand wish to proceed. We will try to do this laparoscopically with a local incision around the colostomy. Crispin Shen MD 05/09/2022 8:54 AM This note was created in part with the assistance of [employer] voice recognition software. Plant Scientist variances and error may occur. Not every sentence has been reviewed in its entirety. For questions about the documentation above, please contact Dr. Shen. 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 female s/p s/p colostomy reversal on 05/18/2022 Past Medical History: Diagnosis Date Anxiety Depression [...] anal fistula plug treatment of fistula. Precautions: Colorectal Precautions Occupational Therapy Goal: sit in a hot tub and not have to pack a bag everywhere I go. 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 Fall within the last 6 months: No Objective Vitals: Vital signs stable prior to session per RN and chart review, patient with no adverse signs/symptomsthroughout session Pain Assessment: Pre-therapy pain: 3 10 Post-therapy pain: Location: abdomen Pain Intervention: patient received pain medication prior to occupational therapy treatment, repositioned, and rest Cognition: Overall Cognitive Status: WFL to complete therapy related tasks Arousal: Alert Orientation: Oriented x4 (person, place, time, and situation) Following Commands: Follows all commands and directions without difficulty Safety Judgement: Good awareness of safety precautions Problem Solving: Able to problem solve independently Behavior: Easy to engage Formal Cognitive Assessment Indicated: None indicated at this time RUE Assessment: Within functional limits LUE Assessment: Within functional limits Balance Static Sitting Balance Level of assist: independent Dynamic Sitting Balance Level of assist: independent Static Standing Balance Level of assist: independent Dynamic Standing Balance Level of assist: independent Activity Tolerance endurance does not limit participation in activity Activities of Daily Living Lower Body Dressing: Patient completed lower body dressing sitting edge of bed with independence, patient participated in donning/doffing right sock and donning/doffing left sock . Toileting: Patient completed toileting seated on toilet in bathroom with independence, patient participated inclothing management down, clothing management up , and anterior perineal hygiene. Functional Mobility Bed Mobility: Patient performed supine to and from edge of bed with modified independence for use of log rolling technique to manage pain. Functional Transfers: Patient performed sit to and from stand with independence. Toilet Transfers: Patient performed standard toilet transfer using no device with independence. Shower Transfers: Patient states she feels confident that she will be able to complete a shower transfer using no device to standing with independence. Patients mobility supports the patients statements. Functional Ambulation: Patient ambulates throughout room/bathroom and hallway with no device and independence to simulate home ambulation. No safety concerns noted. *Gait belt used for all OOB mobility* Assessment Occupational Therapy Problem List: Patient has impairments including: post operative pain. The patient found supine at the beginning of the session. Upon exit, patient supine. All personal/safety needs are within reach up when exiting. Patients pain is not limiting her functional status. The patient participated in occupational therapy services, demonstrating the ability to be safely discharged home with family support. Anticipate a safe discharge home when medically stable. No furtherskilled Occupational Therapy services are indicated; therefore, orders/services will be discontinued. Brief review of medical and therapy records pertaining to current functional performance was obtained for this patient. Low complexity decision making was necessary for analysis of occupational profile, analysis of data, and consideration of treatment options. Minimal to no modification and assistance was needed for patient to complete all evaluation components. Prognosis:Excellent Response to today's treatment: Excellent Completed patient handoff and notified RN of patient's location and functional status upon completion of session. Education: Patient has been educated on the role of OT, safety, precautions, and ADL re-training. Education completed via explanation, teach back, demonstration, and handout . Patient verbalized understanding and demonstrated understanding. Handouts Issued: Colorectal precaution handout Care Plan Goals established: 05/19/22 Goals to be completed by: 05/24/2022 The patient will perform lower body dressing with independence in order to safely return home by the above completion date. Comments: met 05/19/22 The patient will perform toileting with independence in order to safely return home by the above completion date. Comments: met 05/19/22 The patient will perform toilet transfer with independence in order to safely return home by the above completion date. Comments: met 05/19/22 The patient will perform walk-in shower transfer with independence in order to safely return home by the above completion date. Comments: met 05/19/22 The patient will verbalize understanding of Colorectal Precautions with education in order to ensure patient maintains precautions by the above completion date. Comments: met 05/19/22 Plan Treatment frequency: One-time visit (Discharge from this service) Recommended equipment to safely discharge: None Referrals Recommended: None. Patient okay to discharge home: Yes Discharge Recommendation: Home with family, Home with intermittent assist, No further OT indicated Discharge destination and transportation depends not only upon the therapists??? recommendations, but also on insurance authorization, bed availability, acceptance to the facility, medical diagnosis,and any other specialized needs. Case Management and/or Social Work will work with the patient and their interdisciplinary team to determine the most appropriate discharge disposition. Rosina Waters OT * Ernie Salamanca, PT - 05/18/2022 2:07 PM CDT [facility] Physical Therapy Initial Evaluation Patient Name: Belem Smith Date of Service: 05/18/2022 Date of : 1970 Age: 51 y.o. female Room: [address] Admit Date: 05/18/2022 Attending Provider: Crispin Shen MD Primary Diagnosis: Colostomy in place ([facility]) ([facility]) Subjective HPI: Belem Smith is a 51 y.o. female s/p colostomy reversal on 05/18/2022. Patient is agreeableto physical therapy evaluation. Past Medical History: Diagnosis Date Anxiety Depression [...] anal fistula plug treatment of fistula. Precautions: colorectal Physical Therapy Goal: To get back to normal Patient Comment: Patient eager to participate with therapy Prior Living Environment and Level of Function: Type of Home: 2 level home Lives With: Stairs to Enter: 0 Railings: 0 Stairs Inside: 10 Railings: bilateral Comments: Has two homes that she alternates between, but will be recovering in the same. 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 Pain Assessment: Pre-evaluation pain: Post-evaluation pain: Location: abdomen Pain intervention: Patient received pain medication prior to physical therapy treatment, Repositioned, Ambulation, Exercise, and Physical therapy Cognition: Overall Cognitive Status: WFL to complete therapy related tasks Sensation: Patient sensation deemed within functional limits based on light touch screen. Lower Extremity Assessment: Strength Patient lower extremity strength deemed to be within functional limits based on bed mobility, transfers, and gait. Bed Mobility: Patient performs supine to edge of bed with set up/clean up assistance. Patient was educated on logroll and was able to complete with cueing Transfers: Patient performs sit to stand with no device and IV pole and close supervision. Patient demonstrates good force production through lower extremities this date. Gait: Patient ambulates x 700 feet with IV pole and close supervision. Patient demonstrates good tolerance to ambulation this date. Stairs: Patient declined stairs this date. Gait belt was used for all out of bed mobility. Balance Tinetti Score Sitting Balance Steady, safe Arises Able, uses arms to help Attempts to Arise Able to arise, one attempt Immediate Standing Balance (first 5 seconds) Steady but uses walker or other support Standing Balance Steady but wide stance, uses cane or other support Sternal Nudge Staggers, grabs, catches self Eyes Closed Unsteady Turned 360 Degrees-Steadiness Steady Turned 360 Degrees- Continuity of Steps Continuous Sitting Down Uses arms or not a smooth motion Balance Score 10 Initiation of Gait No hesitancy Step Height- R Swing Foot Right foot complete clears floor Step Length- R Swing Foot Passes left stance foot Step Height- L Swing Foot Left foot complete clears floor Step Length- L Swing Foot Passes right stance foot Step Symmetry Right and left step appear equal Step Continuity Steps appear continuous Path Mild/moderate deviation or uses walking aid Trunk Marked sway or uses walking aid Base of Support Heels almost touching while walking Gait Score 9 Total Score 19 <18: High Fall Risk 19-23: Moderate Fall Risk >24: Low Fall Risk Assessment Physical Therapy Diagnosis: Impaired joint mobility, motor function, muscle performance, and range of motion associated with bony or soft tissue surgery Prognosis: Excellent Response to today???s treatment: Excellent Completed patient handoff and notified RN of patient???s location and functional status upon completion of session. Patient cleared for physical therapy by RN prior to entering the patient's room. Patient was found supine in bed and was agreeable to physical therapy evaluation. Patient history was obtained then patient was educated on colorectal precautions and log rolling technique. Patient was able to completelog roll with verbal cueing. Patient then completed all bed mobility and ambulation with close supervision as this was her first time out of bed since surgery. Patient demonstrates good tolerance to ambulation of 700ft and pain was well controlled. Patient was then ready to return to room where shewas positioned for comfort in her bedside chair with all needs met, call light in reach, and RN notified. Patient's clinical presentation is stable and the patient's clinical course is expected to progress in a typical manner. Patient demonstrates deficiencies in the following areas: gait deviations, decreased strength, decreased range of motion, decreased mobility, and due to colorectal surgery precautions. Patient would benefit from physical therapy intervention to address these impairments and functional limitations. Education: Patient has been educated on the role of physical therapy, safety, precautions, and mobility training. Education completed via explanation. Patient verbalized understanding. Handouts Issued: None issued this visit Patient at high risk for: Falls Care Plan Goals established: 05/18/22 Goals to be completed by: 05/23/2022 The patient will perform bed mobility including supine to/from sit with independence in order to safely return home by the above completion date. Comments: Initiated The patient will perform sit to/from stand transfers using none and independence in order to safelyreturn home by the above completion date. Comments: Initiated The patient will ambulate 650 feet using none and distant supervision in order to safely return home by the above completion date. Comments: Initiated The patient will ascend/descend 4 stairs with single handrail and close supervision in order to safely return home by the above completion date. Comments: Initiated The patient will ascend/descend a curb step with no device and close supervision in order to safelyreturn home by the above completion date. Comments: Initiated The patient will recall colorectal precautions and log roll technique for bed mobility with no cueing in order to ensure patient maintains precautions by the above completion date. Comments: Initiated The patient will perform home walking program per protocol with family/caregiver assistance as needed in order to increase strength/increase endurance by the above completion date. Comments: Initiated Plan Physical therapy frequency: Twice a day If this is the last note, consider this the discharge summary Physical Therapy interventions: Bed mobility, Endurance training, Equipment eval/education, Functional activity, Functional transfer training, Gait training, Positioning, Stair training, Strengthening, Therapeutic activity, Therapeutic exercise, Transfer training Recommended equipment to safely discharge: None Recommended method of transportation at discharge: Personal vehicle with family Referrals Recommended: None Patient okay to discharge home: No Discharge Recommendation: Home with family, Home with intermittent assist Discharge destination and transportation depends not only upon the therapists??? recommendations, but also on insurance authorization, bed availability, acceptance to the facility, medical diagnosis,and any other specialized needs. The Stock Trader and/or Lead Ruby On Rails Developer will work with the patient and the intradisciplinary team to determine the most appropriate discharge disposition. Ernie Salamanca, PT documented in this encounter Nursing Notes * Adilene Powers RN - 05/20/2022 7:00 AM CDT Informed patient of 1000 mL free water restriction. Strict I &O in place. * Mckenna Weir RN - 05/19/2022 2:30 AM CDT At 1999 on 05/18/22 Dr. Steinberg gave the ok to change the patient's surgical dressing due to saturation. Provider also notified at 220 on 05/19/22 about patient's output per Best Practice Review shift audit. documented in this encounter Miscellaneous Notes * Plan of Care - Adilene Powers RN - 05/20/2022 4:11 AM CDT Goals: Clinical Goals for the Shift: ERAS pathway. pain <4/10. Strict I&O. Summary: Patient ambulating in hallway. Chewing gum, IS 1000. Pain reported 2/10 after pain med. Monitor I/O. Having BM & voiding without difficulty. Problem: Health Behavior: Goal: Understanding of discharge needs will improve Outcome: Progressing Problem: Lack of Knowledge: Goal: Ability to develop a pain control plan will improve Outcome: Progressing Goal: Ability to identify pain intensity on a pain scale and rate it consistently will improve Outcome: Progressing Goal: Ability to notify healthcare provider of pain before it becomes unmanageable or unbearable will improve Outcome: Progressing Problem: Medication: Goal: Satisfaction with pain management regimen will improve Outcome: Progressing Problem: Sensory: Goal: Ability to identify factors that increase the pain will improve Outcome: Progressing Goal: Pain level will decrease Outcome: Progressing Problem: Activity: Goal: Risk for activity intolerance will decrease Outcome: Adequate for Discharge Problem: Lack of Knowledge: Goal: Knowledge of disease or condition will improve Outcome: Adequate for Discharge Goal: Ability to state and carry out methods to decrease the pain will improve Outcome: Adequate for Discharge Problem: Nutritional: Goal: Nutritional status will be supported Outcome: Progressing Problem: Fluid Volume: Goal: Maintenance of adequate hydration will improve Outcome: Adequate for Discharge Problem: Physical Regulation: Goal: Complications related to the disease process, condition or treatment will be avoided or minimized Outcome: Adequate for Discharge Goal: Ability to maintain clinical measurements within normal limits will improve Outcome: Adequate for Discharge Problem: Sensory: Goal: Ability to identify factors that increase the pain will improve Outcome: Adequate for Discharge Goal: Ability to notify healthcare provider of pain before it becomes unmanageable or unbearable will improve Outcome: Adequate for Discharge Goal: Pain level will decrease Outcome: Progressing * Plan of Junie - Mariama Elliott RN - 05/19/2022 5:38 PM CDT Problem: Activity: Goal: Risk for activity intolerance will decrease Outcome: Progressing Problem: Lack of Knowledge: Goal: Knowledge of disease or condition will improve Outcome: Progressing Goal: Ability to state and carry out methods to decrease the pain will improve Outcome: Progressing Goals: Clinical Goals for the Shift: RN: BM, tolerate regular diet, assist w/ ADLs PRN, no falls this shift Summary: Had BM- has been ambulating in halls frequently with . Pain in controlled. * Plan of Care - Siomara Wasserman RN - 05/19/2022 1:31 PM CDT Report per DCA: Plan of care was discussed with the Multidisciplinary Team in [facility] today. Impression/problem: s/p colostomy closure Plan: Pathway, [facility] Goals: Return home at discharge Referrals: PT/OT Support: Family Transportation: Family/ Personal Vehicle F/U: No primary care provider on file. AV: 05/20-05/21 Case Management will follow for planning and referrals as needed. * Plan of Care - Mckenna Weir RN - 05/19/2022 7:09 AM CDT Goals: Clinical Goals for the Shift: stable vitals, ambulate, I&O Summary: Patient experiencing minimal pain overnight; pain managed with scheduled medication. Patient ambulating in the halls, voiding well and had bowel movement this morning. Fluids infusing, patient chewing gum as ordered. Surgical site intact; minimal drainage noted after dressing change at the beginning of the shift. Patient actively resting in bed, VSS and is on room air. * Plan of Care - Riaz Baxter RN - 05/18/2022 4:48 PM CDT Goals: Clinical Goals for the Shift: stable vitals, ambulate, I&O Summary: Problem: Health Behavior: Goal: Understanding of discharge needs will improve Outcome: Progressing Problem: Lack of Knowledge: Goal: Ability to develop a pain control plan will improve Outcome: Progressing Goal: Ability to identify pain intensity on a pain scale and rate it consistently will improve Outcome: Progressing Goal: Ability to notify healthcare provider of pain before it becomes unmanageable or unbearable will improve Outcome: Progressing Problem: Medication: Goal: Satisfaction with pain management regimen will improve Outcome: Progressing Problem: Sensory: Goal: Ability to identify factors that increase the pain will improve Outcome: Progressing Goal: Pain level will decrease Outcome: Progressing Problem: Activity: Goal: Risk for activity intolerance will decrease Outcome: Progressing Problem: Lack of Knowledge: Goal: Knowledge of disease or condition will improve Outcome: Progressing Goal: Ability to state and carry out methods to decrease the pain will improve Outcome: Progressing Problem: Nutritional: Goal: Nutritional status will be supported Outcome: Progressing Problem: Fluid Volume: Goal: Maintenance of adequate hydration will improve Outcome: Progressing Problem: Health Behavior: Goal: Ability to state signs and symptoms to report to health care provider will improve Outcome: Progressing Problem: Physical Regulation: Goal: Complications related to the disease process, condition or treatment will be avoided or minimized Outcome: Progressing Goal: Ability to maintain clinical measurements within normal limits will improve Outcome: Progressing Problem: Sensory: Goal: Ability to identify factors that increase the pain will improve Outcome: Progressing Goal: Ability to notify healthcare provider of pain before it becomes unmanageable or unbearable will improve Outcome: Progressing Goal: Pain level will decrease Outcome: Progressing * Post-Procedure Note - Cyndee Romero NP - 05/18/2022 1:35 PM CDT Colorectal Surgery Postoperative Progress Note: Attending Physician: Crispin Shen MD Diagnosis: 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 Subjective: No nausea/vomiting/chest pain/shortness of breath. Pain: -Location: abdomen -Pain scale: 4 Objective: BP 114/67 (BP Location: Left arm, Patient Position: Lying) Pulse 84 Temp 36.5 ??C (97.7 ??F) (Temporal) Resp 18 Ht 177.8 cm (5' 10 ) Wt 93 kg (205 lb) SpO2 99% BMI 29.41 kg/m?? Physical Exam: General: Alert & Oriented x 3 and No acute distress CV: Normal S1, S2, no murmurs/rubs/gallops Respiratory:Nonlabored, CTAB Abdomen: Soft, non-distended, appropriately tender to palpation Incision: LLQ dressing c/d/i : Indwelling heart Urine: Clear yellow Extremities: Warm, no edema Peripheral Pulses: ++, SCDs in place and functioning Neuro: Grossly intact Assessment/Plan: Belem Smith is a 51 y.o. female with a history of an anal-vaginal fistula, status post colostomy takedown, POD0: Diet: Clear liquids with crackers Activity: Ambulate QID w/ assist the first time, Incentive spirometer x 10/hour while awake IVF: D5 1/2NS with 20mEq KCl at 75 mL/hr, for 16 hours AM labs: CBC, BMP x 2 days Monitor: VS, I&O q4 hours, Pain management Consults: PT and OT Medications: Entereg, Lovenox, Tylenol, Toradol, Gabapentin, oxycodone, dilaudid Cyndee Romero NP 05/18/22 1:35 PM Cosigned by Crispin Shen MD at 05/18/2022 2:19 PM CDT * Op Note - Crispin Shen MD - 05/18/2022 7:42 AM CDT SURGICAL TEAM: Surgeon(s) and Role: * Crispin Shen MD - Primary ANESTHESIA: General PREOPERATIVE DIAGNOSIS (ES): Diverting end loop colostomy POSTOPERATIVE DIAGNOSIS (ES): Diverting end loop colostomy NAME OF OPERATION: Colostomy closure INDICATIONS FOR PROCEDURE: The patient is a 51 y.o. female with a history of an anal vaginal fistula that was treated with diversion and multiple attempts at repair. Her fistula has finally been fixed and she presents now for a colostomy takedown OPERATIVE FINDINGS: There were minimal intra-abdominal adhesions around the colostomy. DESCRIPTION OF PROCEDURE: The patient was brought to the operating room and placed under general anesthesia in the supine position. Elliptical incision was made around the colostomy and it was freed up circumferentially from the subcutaneous tissue and fascia. We were able enter into the abdominal cavity and deliver a significant length of colon out through this incision. The colon was divided above and below the colostomy with a NII stapler. The mesentery was divided between clamps with 0 Vicryl ties. A [id number] functional end-to-end anastomosis was created with a NII 80 stapler. The resulting enterotomy was closed with a TA 60 stapler. A 3- 0 Vicryl Lembert suture was placed in the crotch of the anastomosis. The anastomosis was inspected and seen to be healthy, widely patent, and intact. The anastomosis was reduced back down into the abdomen. The fascia was closed with [id number] 1. Vicryl sutures. Thewound was irrigated the skin was closed with ashwin and Telfa misa. ESTIMATED BLOOD LOSS: 50 mL INTRAOPERATIVE FLUIDS: See anesthesia record. SPONGE/INSTRUMENT/NEEDLE COUNTS: Correct times two. PRESENCE STATEMENT: I was present for the entire procedure as I have described above documented in this encounter Plan of Treatment Not on file documented as of this encounter Procedures Procedure Name Priority Date/Time Associated Diagnosis Comments EGFR Timed 05/20/2022 11:54 AM CDT BASIC METABOLIC PANEL Timed 05/20/2022 11:54 AM CDT EGFR Routine 05/20/2022 3:31 AM CDT PHOSPHORUS Routine 05/20/2022 3:31 AM CDT MAGNESIUM Routine 05/20/2022 3:31 AM CDT BASIC METABOLIC PANEL Routine 05/20/2022 3:31 AM CDT CBC WITHOUT DIFFERENTIAL Routine 05/20/2022 3:27 AM CDT EGFR Timed 05/18/2022 9:13 PM CDT CBC WITHOUT DIFFERENTIAL Timed 05/18/2022 9:13 PM CDT BASIC METABOLIC PANEL Timed 05/18/2022 9:13 PM CDT COLOSTOMY TAKEDOWN 05/18/2022 7: 15 AM CDT [address] in place (CMS/HCC) ([facility]) POCT HCG, URINE Routine 05/18/2022 6:14 AM CDT documented in this encounter Results * eGFR (05/20/2022 11:54 AM CDT) eGFR 95 mL/min/1. 73 m2 JAZZ LARES Comment: Interpretive Data Reference Interval Normal ?>/= [...] interpretive data was last reviewed 2021. Blood 05/20/2022 11:5 4 AM CDT 05/20/2022 11:54 AM CDT us Crispin Shen MD LAB BLOOD ORDERABLES Final Res ult Performing Organization Address City/[facility]/ZIP Co de Phone Number JAZZ LARES [phone] [place] [address] * Basic metabolic panel (05/20/2022 11:54 AM CDT) Sodium 144 135 - 145 mmol/L [facility] Potassium, pl 4.2 3.3 - 4.9 mmol/L [facility] Chloride 106 97 - 110 mmol/L [facility] CO2 31 22 - 32 mmol/L [facility] Anion gap 7 2 - 15 mmol/L [facility] BUN 9 8 - 25 mg/dL [facility] Creatinine 0.76 0.60 - 1.10 mg/dL [facility] Glucose 113 70 - 199 mg/dL [facility] Comment: Interpretive Data Fasting glucose >/= 126 [...] classification and Diagnosis of Diabetes Diabetes Care 2017;40 (Suppl. 1):S11. Current interpretive data was last revised 2017. Calcium 8.6 8.5 - 10.3 mg/dL [facility] Blood 05/20/2022 11:5 4 AM CDT 05/20/2022 11:54 AM CDT Crispin Shen MD LAB BLOOD ORDERABLES Final Res ult Performing Organization Address [facility]/ZIP Co de Phone Number JAZZ LARES [phone] [address] [employer] [place] [address] * eGFR (05/20/2022 3:31 AM CDT) eGFR 105 mL/min/1. 73 m2 [facility] Comment: Interpretive Data Reference Interval Normal ?>/= [...] interpretive data was last reviewed 2021. Blood 05/20/2022 3:31 AM CDT 05/20/2022 3:31 AM CDT us Crispin Shen MD LAB BLOOD ORDERABLES Final Res ult Performing Organization Address City/State/ZIP Co or Phone Number [facility] [phone] [facility]. Department [place] [address] * (ABNORMAL) Basic metabolic panel (05/20/2022 3:31 AM CDT) Sodium 130(L) 135 - 145 mmol/L [facility] Potassium, pl 3.9 3.3 - 4.9 mmol/L [facility] Chloride 98 97 - 110 mmol/L [facility] CO2 27 22 - 32 mmol/L [facility] Anion gap 5 2 - 15 mmol/L [facility] BUN 8 8 - 25 mg/dL [facility] Creatinine 0.70 0.60 - 1.10 mg/dL JAZZ [facility] Glucose 96 70 - 199 mg/dL [facility] Comment: Interpretive Data Fasting glucose >/= [...] classification and Diagnosis of Diabetes Diabetes Care 2017;40 (Suppl. 1):S11. Current interpretive data was last revised 2017. Calcium 8.4(L) 8.5 - 10.3 mg/dL JAZZ [facility] Blood 05/20/2022 3:31 AM CDT 05/20/2022 3:31 AM CDT Crispin Shen MD LAB BLOOD ORDERABLES Final Res ult Performing Organization Address [facility] de Phone Number [facility] [phone] [employer] [place], [place] [id number] * Magnesium (05/20/2022 3:31 AM CDT) Magnesium 1.5 1.4 - 2.5 mg/dL [facility] Comment: Reference Data. Reference values for Labor and Delivery patients: < or = 0.7 mg/dL to > or = 7.3 mg/dL Current reference data last reviewd on 05/19/2015. Blood 05/20/2022 3:31 AM CDT 05/20/2022 3:31 AM CDT Crispin Shen MD LAB BLOOD ORDERABLES Final Res ult Performing Organization Address [facility] de Phone Number [facility] [phone] [address] [facility] [place] [address] * Phosphorus (05/20/2022 3:31 AM CDT) Pathologist [facility] Phosphorus, pl 2.7 2.3 - 4.5 mg/dL [facility] Blood 05/20/2022 3:31 AM CDT 05/20/2022 3:31 AM CDT Crispin Shen MD LAB BLOOD ORDERABLES Final Res ult Performing Organization Address [facility] de Phone Number JAZZ MONTOYA [phone] [place] [address] * (ABNORMAL) CBC without differential (05/20/2022 3:27 AM CDT) [facility] WBC 8.9 3.8 - 9.9 K/cumm [facility] Hgb 10.2(L) 11.9 - 15.5 g/dL [facility] Hct 29.5(L) 35.6 - 45.5 % [facility] Plt 162 150 - 400 K/cumm [facility] MPV 10.7 9.1 - 12.3 fL [facility] RBC 3.24(L) 3.90 - 5.20 M/cumm [facility] MCV 91.0 81.3 - 96.4 fL [facility] MCH 31.5 27.1 - 33.3 pg [facility] MCHC 34.6 32.3 - 35.7 g/dL [facility] RDW CV 12.1 11.1 - 14.9 % [facility] RDW SD 40.0 35.7 - 48.1 fL [facility] NRBC abs 0.00 0.00 - 0.01 K/cumm [facility] Blood 05/20/2022 3:27 AM CDT 05/20/2022 3:31 AM CDT Crispin Shen MD LAB BLOOD ORDERABLES Final Res ult Performing Organization Address City/[facility]/ZIP Co de Phone Number JAZZ MONTOYA [phone] [address] [place] [address] * eGFR (05/18/2022 9:13 PM CDT) eGFR 105 mL/min/1. 73 m2 JAZZ LARES Comment: Interpretive Data Reference Interval Normal ?>/= [...] interpretive data was last reviewed 2021. Blood 05/18/2022 9:13 PM CDT 05/18/2022 9:23 PM CDT us Crispin Shen MD LAB BLOOD ORDERABLES Final Res ult [facility] [id number] [address] [facility]. [place] [address] * (ABNORMAL) Basic metabolic panel (05/18/2022 9:13 PM CDT) Sodium 132(L) 135 - 145 mmol/L [facility] Potassium, pl 4.5 3.3 - 4.9 mmol/L [facility] Chloride 99 97 - 110 mmol/L [facility] CO2 25 22 - 32 mmol/L [facility] Anion gap 8 2 - 15 mmol/L [facility] BUN 8 8 - 25 mg/dL [facility] Creatinine 0.70 0.60 - 1.10 mg/dL [facility] Glucose 144 70 - 199 mg/dL [facility] Comment: Interpretive Data Fasting glucose >/= 126 [...] classification and Diagnosis of Diabetes Diabetes Care 2017;40 (Suppl. 1):S11. Current interpretive data was last revised 2017. Calcium 8.6 8.5 - 10.3 mg/dL [facility] Blood 05/18/2022 9:13 PM CDT 05/18/2022 9:23 PM CDT Narrative [facility] - 05/18/2022 9:40 PM CDT Obtain POD 0 at 2200. us Crispin Shen MD LAB BLOOD ORDERABLES Final Res ult JAZZ ALRES [id number] [facility] Department of Laboratories [place], [place] [id number] * (ABNORMAL) CBC without differential (05/18/2022 9:13 PM CDT) Pathologist [facility] WBC 19.2(H) 3.8 - 9.9 K/cumm [facility] Hgb 11.3(L) 11.9 - 15.5 g/dL [facility] Hct 33.9(L) 35.6 - 45.5 % [facility] Plt 231 150 - 400 K/cumm [facility] MPV 10.5 9.1 - 12.3 fL [facility] RBC 3.68(L) 3.90 - 5.20 M/cumm JAZZ LARES MCV 92.1 81.3 - 96.4 fL [facility] 30.7 27.1 - 33.3 pg [facility] 33.3 32.3 - 35.7 g/dL [facility] RDW CV 11.9 11.1 - 14.9 % [facility] RDW SD 40.5 35.7 - 48.1 fL [facility] NRBC abs 0.00 0.00 - 0.01 K/cumm [facility] Blood 05/18/2022 9:13 PM CDT 05/18/2022 9:23 PM CDT Narrative [facility] - 05/18/2022 9:26 PM CDT Obtain POD 0 at 2200. Crispin Shen MD LAB BLOOD ORDERABLES Final Res ult JAZZ LARES [id number] [facility] Department [place] [address] * POCT hCG, urine (05/18/2022 6:14 AM CDT) HCG, ur, POC Negative Lot Number [id number] QC Backgroud Clear Acceptable QC Control Line Acceptable Urine 05/18/2022 6:14 AM CDT Historical Provider POINT OF CARE TEST ORDERA BLES Final Result documented in this encounter Visit Diagnoses Diagnosis Colostomy in place (CMS/HCC) (HCC)- Primary Colostomy status Colostomy in place (CMS/HCC) (HCC) Colostomy status documented in this encounter Admitting Diagnoses Diagnosis Colostomy in place (CMS/HCC) (HCC) Colostomy status documented in this encounter Administered Medications Inactive Administered Medications - up to 3 most recent administrations Medication Order MAR Action Action Date Dose Rate Site acetaminophen (TYLENOL) tablet 1,000 mg 1,000 mg, oral, Every 6 hours scheduled, First dose on Ana 05/18/22 at 1200, Indications: PainIndications:Pain Given 05/20/2022 11:21 AM CDT 1,000 mg Given 05/20/2022 3:13 AM CDT 1,000 mg Given 05/19/2022 5:52 PM CDT 1,000 mg bupivacaine-EPINEPHrine (MARCAINE with EPI) 0.25 %-1:200,000 preservative free injection As needed, Starting on Ana 05/18/22 at 0850, Intra-Op Given 05/18/2022 8:50 AM CDT 30 mL Surgical Site enoxaparin (LOVENOX) syringe 40 mg 40 mg, subcutaneous, Daily (for enoxaparin), First dose on Ana 05/18/22 at 2100, Indications: Deep Vein Thrombosis PreventionIndications:Deep Vein Thrombosis Prevention Given 05/19/2022 9:12 PM CDT 40 mg Left Lower Abdomen Given 05/18/2022 8:12 PM CDT 40 mg Le ft Lower Abdomen gabapentin (NEURONTIN) capsule 300 mg 300 mg, oral, Every 12 hours scheduled, First dose on Ana 05/18/22 at 2100, Indications: PainIndications:Pain Given 05/20/2022 7:31 AM CDT 300 mg Given 05/19/2022 9:14 PM CDT 300 mg Given 05/19/2022 8:12 AM CDT 300 mg HYDROmorphone (DILAUDID) injection 0.2 mg 0.2 mg, intravenous, Administer over 2 Minutes, Every 4 hours PRN, 2nd line for pain, Starting on Ana 05/18/22 at 1324 Given 05/18/2022 8:12 PM CDT 0.2 mg Given 05/18/2022 1:52 PM CDT 0.2 mg ibuprofen (ADVIL,MOTRIN) tablet 600 mg 600 mg, oral, Every 8 hours scheduled, First dose on [place] 05/21/22 at 1400, Start ibuprofen after the ketorolac doses are finished., Indications: PainIndications:Pain ketorolac (TORADOL) 30 mg/mL (1 mL) injection 15 mg 15 mg, intravenous, Every 8 hours scheduled, First dose on [facility] 05/18/22 at 1400, For 9 doses, Indications: Postoperative Acute PainIndications:Postoperative Acute Pain Given 05/20/2022 1:13 PM CDT 15 mg Given 05/20/2022 7:01 AM CDT 15 mg Given 05/19/2022 10:05 PM CDT 15 mg oxyCODONE (ROXICODONE) tablet 5 mg 5 mg, oral, Every 4 hours PRN, 1st line for pain, Starting on Ana 05/18/22 at 1050, Indications: PainIndications:Pain Given 05/20/2022 7:29 AM CDT 5 mg Given 05/20/2022 3:14 AM CDT 5 mg Given 05/19/2022 10:05 PM CDT 5 mg sodium chloride 0.9% flush 0.5-20 mL 0.5-20 mL, intra-catheter, Every 8 hours scheduled, First dose on Ana 05/18/22 at 1400, Flush volume based on line type and size. Given 05/20/2022 1:17 PM CDT 10 mL Given 05/20/2022 7:02 AM CDT 10 mL Given 05/19/2022 10:06 PM CDT 10 mL sodium chloride 0.9% flush 0.5-20 mL 0.5-20 mL, intra-catheter, As needed, line care, Starting on Ana 05/18/22 at 1050, Flush volume based on line type and size. Flush before and after each use. Given 05/20/2022 3:14 AM CDT 20 mL documented in this encounter Active and Recently Administered Medications Times are shown in CDT. Scheduled Medication Order 05/18/2022 05/19/2022 05/20/2022 acetaminophen (TYLENOL) tablet 1,000 mg (COMPLETED) 1,000 mg, oral, Once, On Ana 05/18/22 at 0615, For 1 dose, Pre-Op, Give upon arrival to holding area. , Indications: Pre-Emptive Analgesia 0604 (Given - Provider: Derian Vilchis RN) acetaminophen (TYLENOL) tablet 1,000 mg 1,000 mg, oral, Every 6 hours scheduled, First dose on [place] 05/18/22 at 1200, Indications: Pain 1107 (Given - Provider: Riaz Baxter RN)1730 (Given - Provider: Riaz Baxter RN) 0037 (Given - Provider: Mckenna Weir RN)0453 (Given - Provider: Mckenna Weir RN)1118 (Given - Provider: Mikayla Gomes, RN)1752 (Given - Provider: Mariama Elliott RN) 0225 (Not Given - Provider: Adilene Powers, CHRIS - Reason: Patient/family refused)0313 (Given - Provider: Adilene Powers, CHRIS)1121 (Given - Provider: Mikayla Gomes, CHRIS) alvimopan (ENTEREG) capsule 12 mg (COMPLETED) 12 mg, oral, Once, On Ana 05/18/22 at 0615, For 1 dose, Pre-Op, Give immediately upon arrival to holding area (do not prescribe if patient is currently receiving chronic opioid treatment). , Indications: Postoperative Ileus, Postoperative ileus prophylaxis 06 (Given - Provider: Derian Vilchis, CHRIS) dexAMETHasone (DECADRON) 4 mg/mL injection 8 mg (COMPLETED) 8 mg, intravenous, Administer over 2 Minutes, Once, On [place] 05/18/22 at 0730, For 1 dose, Intra-Op 07 (Given - Provider: Yvonne Pelayo CRNA) enoxaparin (LOVENOX) syringe 40 mg 40 mg, subcutaneous, Daily (for enoxaparin), First dose on [place] 05/18/22 at 2100, Indications: Deep Vein Thrombosis Prevention 2011 (Given - Provider: Mckenna Weir RN) 2111 (Given - Provider: Adilene Powers, CHRIS)2112 (Canceled Entry - Provider: Adilene Powers, CHRIS) ertapenem (INVanz) 1,000 mg in sodium chloride 0.9% 100 mL IVPB (COMPLETED) 1,000 mg, intravenous, at 200 mL/hr, Administer over 30 Minutes, Once, On Ana 05/18/22 at 0615, For 1 dose, Pre-Op, Give within 60 minutes of incision. Do not mix with dextrose or other medications. Mini-bag Plus, Indications: Prophylaxis, Surgical 0711 (New Bag - Provider: Yvonne Pelayo CRNA) gabapentin (NEURONTIN) capsule 300 mg (COMPLETED) 300 mg, oral, Once, On Ana 05/18/22 at 0615, For 1 dose, Pre-Op, Give upon arrival to holding area. , Indications: Pre-Emptive Analgesia 0605 (Given - Provider: Derian Vilchis, CHRIS) gabapentin (NEURONTIN) capsule 300 mg 300 mg, oral, Every 12 hours scheduled, First dose on [place] 05/18/22 at 2100, Indications: Pain 2011 (Given - Provider: Mckenna Weir RN) 08 (Given - Provider: Mikayla Gomes, CHRIS)211 (Given - Provider: Adilene Powers, CHRIS) 0731 (Given - Provider: Mikayla Gomes, CHRIS) heparin 5,000 unit/mL injection 5,000 Units (COMPLETED) 5,000 Units, subcutaneous, Once, On Ana 05/18/22 at 0615, For 1 dose, Pre-Op, Indications: Deep Vein Thrombosis Prevention 06 (Given - Provider: Derian Vilchis, CHRIS) ibuprofen (ADVIL,MOTRIN) tablet 600 mg(Linked Group 1) 600 mg, oral, Every 8 hours scheduled, First dose on [place] 05/21/22 at 1400, Start ibuprofen after the ketorolac doses are finished., Indications: Pain ketorolac (TORADOL) 30 mg/mL (1 mL) injection 15 mg(Linked Group 1) 15 mg, intravenous, Every 8 hours scheduled, First dose on [place] 05/18/22 at 1400, For 9 doses, Indications: Postoperative Acute Pain 1352 (Given - Provider: Riaz Baxter RN)2223 (Given - Provider: cMkenna Weir RN) 0454 (Given - Provider: Mckenna Weir RN)1354 (Given - Provider: Mariama Elliott RN)211 (Not Given - Provider: Adilene Powers, CHRIS - Reason: Patient/family refused)220 (Given - Provider: Adilene Powers, CHRIS) 07 (Given - Provider: Adilene Powers, CHRIS)1313 (Given - Provider: Mikayla Gomes, CHRIS) magnesium oxide (MAG-OX) tablet 400 mg (COMPLETED) 400 mg, oral, Once, On [facility] 05/20/22 at 0600, For 1 dose, 1 tablet = Magnesium oxide 400 mg = 241.3 mg elemental magnesium, Indications: hypomagnesemia 0701 (Given - Provider: Adilene Powers, CHRIS) methadone injection syringe 7 mg (COMPLETED) 7 mg, intravenous, Once, On [place] 05/18/22 at 0730, For 1 dose, Intra-Op 0733 (Given - Provider: Yvonne Pelayo CRNA) scopolamine patch 72 hour 1 patch 1 patch, transdermal, Administer over 72 Hours, Every 72 hours, First dose on [place] 05/18/22 at 0615, For 1 dose, Pre-Op, Apply to Dr. Marsh's patients, as well as to beach-chair position shoulder surgery patients, and to patients with a history of PONV and/or Motion Sickness. Do NOT administer to patients with a history of BPH or Glaucoma. Consult Anesthesiologist with any questions. In case of Urinary Retention, remove patch immediately and clean patch site with Alcohol., Indications: Motion Sickness, Prevention of Motion Sickness, Prevention of Post-Operative Nausea and Vomiting 0608 (Medication Applied - Provider: Derian Vilchis RN) 1439 (Due: Medication Removed - Provider: Automatic Discharge Provider - Comment: Time automatically adjusted from order being discontinued) sodium chloride 0.9% flush 0.5-20 mL 0.5-20 mL, intra-catheter, Every 8 hours scheduled, First dose on [place] 05/18/22 at 1400, Flush volume based on line type and size. 1432 (Not Given - Provider: Riaz Baxter RN - Reason: IV Infusing)2223 (Given - Provider: Mckenna Weir RN) 0454 (Given - Provider: Mckenna Weir RN)1354 (Given - Provider: Mariama Elliott, CHRIS)2206 (Given - Provider: Adilene Powers, CHRIS) 0702 (Given - Provider: Adilene Powers, CHRIS)1317 (Given - Provider: Mikayla Gomes RN) Continuous Medication Order 05/18/2022 05/19/2022 05/20/2022 dextrose 5% and Lactated Ringer's infusion (CANCELED) 75 mL/hr, intravenous, Continuous, Starting on [place] 05/18/22 at 1130, For 16 hours, Discontinue after breakfast post-op day 1. 1107 (New Bag - Provider: Riaz Baxter, CHRIS)2016 (Rate/Dose Verify - Provider: Mckenna Weir, CHRIS) 0038 (New Bag - Provider: Mckenna Weir, CHRIS)0806 (Stopped - Provider: Mikayla Gomes, CHRIS) Lactated Ringer's (LR) infusion () 30 mL/hr, intravenous, Continuous, Starting on [place] 05/18/22 at 0615, For 4 hours, Use a 500 ml bag for End Stage Renal Disease Patients. Discontinue if fluid still running once patient arrives to floor. 0611 (New Bag - Provider: Derian Vilchis RN)0711 (Rate/Dose Verify - Provider: Yvonne Pelayo CRNA)0830 (Paused - Provider: Yvonne Pelayo CRNA - Comment: Switch to gravity)0831 (New Bag - Provider: Yvonne Pelayo CRNA)0855 (Anesthesia Volume Adjustment - Provider: Yvonne Pelayo CRNA) Lactated Ringer's (LR) infusion () 125 mL/hr, intravenous, Continuous, Starting on Ana 05/18/22 at 0945, For 4 hours, Phase I, Discontinue upon discharge from PACU to the floor. 0904 (Continued from OR - Provider: Rhina Shields RN)0934 (New Bag - Provider: Rhina Shields, RN)1016 (New Bag - Provider: Rhina Shields RN) PRN Medication Order 05/18/2022 05/19/2022 05/20/2022 bupivacaine-EPINEPHrine (MARCAINE with EPI) 0.25 %-1:200,000 preservative free injection (CANCELED) As needed, Starting on [place] 05/18/22 at 0850, Intra-Op 0850 (Given - Provider: Crispin Shen MD) Carrier Fluids for Secondary Infusion - 0.9% Sodium Chloride 30 mL, intravenous, As needed, For priming tubing and/or flushing, Starting on [place] 05/18/22 at 1050, 0-250 ml/hr to flush line after IV infusions when no maintenance IV ordered. Infuse 30mL at the same rate as the secondary infusion. Run as primary IV, not intended for KVO. HYDROmorphone (DILAUDID) injection 0.2 mg (CANCELED) 0.2 mg, intravenous, Administer over 2 Minutes, Every 5 min PRN, 1st line for pain, Use as 1st line pain med for inpatients or for patients with extremely severe pain., Starting on [place] 05/18/22 at 0902, Phase I, Use as first line pain medication for inpatients. May use as first line medication for outpatients with extremely severe pain, history of opioid tolerance, or history of Chronic Pain with opioid tolerance, after consulting with Anesthesiologist. Inform anesthesiologist when dose reaches 2 mg for inpatients or 1 mg for outpatients., Indications: Chronic Pain with Opioid Tolerance, Pain, Severe Pain with Opioid Tolerance 0911 (Given - Provider: Rhina Shields RN)0922 (Given - Provider: Rhina Shields RN)0932 (Given - Provider: Rhina Shields RN)1009 (Given - Provider: Rhina Shields, RN) HYDROmorphone (DILAUDID) injection 0.2 mg 0.2 mg, intravenous, Administer over 2 Minutes, Every 4 hours PRN, 2nd line for pain, Starting on [place] 05/18/22 at 1324 1352 (Given - Provider: Riaz Baxter RN)2011 (Given - Provider: Mckenna Weir RN) ondansetron (ZOFRAN) injection 4 mg (COMPLETED) 4 mg, intravenous, Administer over 2 Minutes, Once as needed, nausea, vomiting, Starting on [place] 05/18/22 at 0902, For 1 dose, Phase I, Proceed to prochlorperazine if ondansetron has been given within the last 6 hours. 0914 (Due)0915 (Given - Provider: Rhina Shields, CHRIS) ondansetron (ZOFRAN) injection 4 mg 4 mg, intravenous, Administer over 2 Minutes, Every 6 hours PRN, nausea, vomiting, Starting on [place] 05/18/22 at 1050, Proceed to prochlorperazine if no relief within 30 minutes. oxyCODONE (ROXICODONE) tablet 5 mg 5 mg, oral, Every 4 hours PRN, 1st line for pain, Starting on Ana 05/18/22 at 1050, Indications: Pain 1106 (Given - Provider: Sumayyah S. Sahil, RN)1616 (Given - Provider: Riaz Baxter, CHRIS) 1309 (Given - Provider: Edel Campbell, RN)1752 (Given - Provider: Mariama Elliott, CHRIS)2205 (Given - Provider: Adilene Powers, CHRIS) 0314 (Given - Provider: Adilene Powers, RN)0729 (Given - Provider: Mikayla Gomes, CRHIS) prochlorperazine (COMPAZINE) injection 10 mg 10 mg, intravenous, Administer over 2 Minutes, Every 6 hours PRN, nausea, vomiting, Starting on [place] 05/18/22 at 1050, If not relieved by ondansetron within 30 minutes. prochlorperazine (COMPAZINE) injection 5 mg (CANCELED) 5 mg, intravenous, Administer over 2 Minutes, Once as needed, nausea, vomiting, Give second 5 mg dose if nausea persistent after 15 minutes., Starting on Ana 05/18/22 at 0902, For 2 doses, Phase I, If nausea/vomiting not relieved by ondansetron within 30 minutes or if ondansetron has been given within the last 6 hours. 0951 (Given - Provider: Rhina Shields RN) sodium chloride 0.9% flush 0.5-20 mL 0.5-20 mL, intra-catheter, As needed, line care, Starting on [place] 05/18/22 at 1050, Flush volume based on line type and size. Flush before and after each use. 0314 (Given - Provider: Adilene Powers, CHRIS) Linked Groups Order Group 1: ketorolac (TORADOL) 30 mg/mL (1 mL) injection 15 mgJump to med 15 mg, intravenous, Every 8 hours scheduled, First dose on [place] 05/18/22 at 1400, For 9 doses, Indications: Postoperative Acute Pain Followed by ibuprofen (ADVIL,MOTRIN) tablet 600 mgJump to med 600 mg, oral, Every 8 hours scheduled, First dose on 05/21/22 at 1400, Start ibuprofen after the ketorolac doses are finished., Indications: Pain documented in this encounter Orders Medications Ordered That Max ht Not Have Been Administered Count Last Ordered Date First Ordered Date magnesium oxide (MAG-OX) tablet 400 mg 1 acetaminophen (TYLENOL) tablet 1,000 mg 2 0 05/18/2022 acetaminophen (TYLENOL) tablet 500 mg 1 alvimopan (ENTEREG) capsule 12 mg 2 022 Carrier Fluids for Secondary Infusion - 0.9% Sodium Chloride 1 05/18/2022 clindamycin (CLEOCIN) 600 mg , gentamicin (GARAMYCIN) 240 mg in sodium chloride 0.9% 500 mL irrigation solution 1 05/18/2022 dexAMETHasone (DECADRON) 4 m g/mL injection 8 mg 1 05/18/2022 dextrose 5% and Lactated Ringer's infusion 1 05/18/2022 diphenhydrAMINE (BENADRYL) i njection 12.5 mg 1 05/18/2022 enoxaparin (LOVENOX) syringe 40 mg 1 2021 ertapenem (INVanz) 1,000 mg in sodium chloride 0.9% 100 mL IVPB 1 05/18/2022 famotidine (PEPCID) injection 20 mg 1 05/18 fentaNYL (SUBLIMAZE) preserv ative free injection 25 mcg 1 05/18/2022 gabapentin (NEURONTIN) capsule 300 mg 2 heparin 5,000 unit/mL inject ion 5,000 Units 1 05/18/2022 hydrALAZINE (APRESOLINE) injection 5 mg 1 0 05/18/2022 HYDROcodone-acetaminophen (N ORCO) 5-325 mg per tablet 1 tablet 1 05/18/2022 HYDROmorphone (DILAUDID) injection 0.2 mg 2 05/18/2022 ibuprofen (ADVIL,MOTRIN) tablet 600 mg 1 ketorolac (TORADOL) 30 mg/mL (1 mL) injection 15 mg 1 05/18/2022 labetaloL (NORMODYNE,TRANDAT E) injection 5 mg 1 05/18/2022 Lactated Ringer's (LR) infusion 2 meperidine (DEMEROL) preserv ative free injection 12.5 mg 1 05/18/2022 methadone injection syringe 7 mg 05/18/20 naloxone (NARCAN) 0.4 mg/mL injection 0.04-0.4 mg 05/18/2022 ondansetron (ZOFRAN) injection 4 mg 2 05/18 oxyCODONE (ROXICODONE) tablet 5 mg 1 2021 prochlorperazine (COMPAZINE) injection 10 mg 1 05/18/2022 prochlorperazine (COMPAZINE) injection 5 mg 1 05/18/2022 scopolamine patch 72 hour 1 patch 1 022 sodium chloride 0.9% flush 0.5-20 mL 3 04/21 Admission Count Last Ordered Date First Orde red Date ADMIT TO INPATIENT 1 05/18/2022 Transfer Count Last Ordered Date First Orde red Date TRANSFER PATIENT TO NEW UNIT 1 05/18/2022 Discharge Count Last Ordered Date First Orde red Date DISCHARGE PATIENT 1 05/20/2022 documented in this encounter Care Teams Apple Turner Relationship Specialty Start Date End Date Crispin Shen MD Surgeon Colon and Rectal Surgery 09/09/20 Kemi Schmitz [address] [facility] [place] [address] Surgeon Colon and Rectal Surgery 05/16/21 documented as of this encounter
--- OUTSIDE RECORDS SUMMARY | 2024-08-18 09:54 | XMS_ITS | Encounter Summary ---
Author Organization [facility] Healthcare Address [address] [place] [address] Care Team Providers Care Slack Cooper Name Role Phone Crispin Shen MD Unavailable [phone] Kemi Schmitz Unavailable Encounter Details Date Type Department Care Team (Late st Contact Info) Description 03/30/2022 1:40 PM CDT Lab [facility] [address] [place] [address] Preoperative testing Social History Tobacco Use Types Packs/Day Years [...] often do you attend chur ch or evangelical services? 1 to 4 times per year 11/24/2020 Do you belong to any clubs o r organizations such as samaritan groups, unions, fraParkinsor or athletic groups, or school groups? No 11/24/2020 How often do you attend meet ings of the clubs or organizations you belong to? Never 11/24/2020 Are you , , di vorced, , never , or living with a partner? Living with partner 11/24/2020 AUDIT-C Answer Date Recorded Q1: How often do you have a drink containing alcohol? Never 03/31/2022 Q2: How many drinks containi ng alcohol do you have on a typical day when you are drinking? Patient does not drink Q3: How often do you have si x or more drinks on one occasion? Never 03/31/2022 Hunger Vital Sign Answer Date Recorded Within [...] on file Legal Sex Female 9:36 AM [employer] Gender Identity Female 11/16/2020 2:58 PM CDT Sexual Orientation Straight 11/16/2020 2: 58 PM CDT documented as of this encounter Plan of Treatment Not on file documented as of this encounter Procedures Procedure Name Priority Date/Time Associated Diagnosis Comments EGFR Routine 03/30/2022 4:01 PM CDT Preoperative testing BASIC METABOLIC PANEL Routine 03/30/2022 4:01 PM CDT Preoperative testing documented in this encounter Results * eGFR (03/30/2022 4:01 PM CDT) eGFR >90 90 - 130 mL/min/1. 73 m2 JAZZ VALENTIN Comment: Interpretive [...] interpretive data was last reviewed 2021. Blood 03/30/2022 4:01 PM CDT 03/30/2022 6:51 PM CDT us Melvi Jennings NP LAB BLOOD ORDERABLES Final Re sult [facility] Department [place] [address] * (ABNORMAL) Basic metabolic panel (03/30/2022 4:01 PM CDT) Sodium 142 135 - 145 mmol/L [facility] Potassium, pl 3.7 3.3 - 4.9 mmol/L [facility] Chloride 106 97 - 110 mmol/L [facility] CO2 28 22 - 32 mmol/L [facility] Anion gap 8 2 - 15 mmol/L [facility] BUN 7(L) 8 - 25 mg/dL [facility] Creatinine 0.74 0.60 - 1.10 mg/dL [facility] Glucose 91 70 - 199 mg/dL [facility] Comment: Interpretive Data Fasting glucose >/= [...] 2017. Calcium 8.6 8.5 - 10.3 mg/dL [facility] Blood 03/30/2022 4:01 PM CDT 03/30/2022 6:37 PM CDT Melvi Jennings NP LAB BLOOD ORDERABLES Final Re sult [facility] Department [place] [address] documented in this encounter Visit Diagnoses Diagnosis Preoperative testing Unspecified pre-operative examination documented in this encounter Care Teams Slack Cooper Relationship Specialty Start Date End Date Crispin Shen MD Surgeon Colon and Rectal Surgery 09/09/20 Kemi Schmitz [address] [place] [address] Surgeon Colon and Rectal Surgery 05/16/21 documented as of this encounter
--- OUTSIDE RECORDS SUMMARY | 2024-08-18 09:54 | XMS_ITS | Encounter Summary ---
Author Organization [facility] Address [address] [place] [address] Care Team Providers Care Cement Paver Name Role Phone Crispin Shen MD Unavailable [phone] Kemi Schmitz Unavailable Reason for Visit * Auth/Cert Specialty Diagnoses / Procedures Referred By Contac t Referred To Contact Diagnoses Colostomy in place ([facility]/HCC) (HCC) Colostomy in place (CMS/[facility]) ([facility]) [Z93.3] Procedures [place] CLOSE ENTEROSTOMY,RESEC+COLOREC ANAS COLOSTOMY TAKEDOWN Referral ID Status Reason Start Date Expiration Date Visits Re quested Visits Authorized [id number] 1 1 Encounter Details Date Type Department Care Team (Latest Contact Info) Description 05/18/2022 5:04 AM CDT - 05/20/2022 2:39 PM CDT Hospital Encounter [facility] [id number] [place] [address] Crispin Shen MD [address] [facility] [phone] [place] [address] Discharge Disposition: Discharge to home or self [...] How often do you attend [facility] services? 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 Gender Identity Female 11/16/2020 2:58 PM CDT Sexual Orientation Straight 11/16/2020 2: 58 PM CDT documented as of this encounter Last Filed Vital Signs Vital Sign Reading Time Taken Comments Blood Pressure 121/67 05/20/2022 11:45 AM CDT Pulse 93 05/20/2022 11:45 AM CDT Temperature 36.8 ??C (98.2 ??F) 05/20/2022 11:45 AM C DT Respiratory Rate 18 05/20/2022 11:45 AM CDT Oxygen Saturation 96% 05/20/2022 11:45 AM CDT Inhaled Oxygen Concentration - - [...] Date: 05/18/2022 Discharge Date: 05/20/2022 Admission Location: [facility] Problems/Diagnoses: Principal Problem: Colostomy in place ([facility]) ([facility]) Resolved Problems: No resolved hospital problems. 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 She has a diverting loop colostomy. She has already had her Hypaque study back in the early summer and they show no fistula. Hospital Course: Ms. Belem Smith with a diagnosis of Colostomy in place (CMS/HCC) ([facility]), was electively taken tothe operating room on [...] Larose MD - 05/20/2022 6:51 AM CDT [facility] Daily Progress Note Colon and Rectal Surgery [...] sodium chloride 0.9%, 0.5-20 mL, intra-catheter, Q8H [facility] Infusions: PRN: sodium chloride 0.9% [...] RADIOLOGY/ DIAGNOSTIC REVIEW: Recent Labs Lab Units 05/20/2232605/18/222112 WBC K/cumm 8.9 19.2* HEMOGLOBIN g/dL 10.2* 11.3* HEMATOCRIT % 29.5* 33.9* PLATELETS K/cumm 162 231 Recent Labs Lab Units 05/20/2233005/18/222112 SODIUM mmol/L 130* 132* POTASSIUM PLASMA mmol/L 3.9 4.5 CHLORIDE mmol/L 98 99 CO2 mmol/L 27 25 BUN SERUM mg/dL 8 8 CREATININE mg/dL 0.70 0.70 GLUCOSE mg/dL 96 144 CALCIUM mg/dL 8.4* 8.6 I have reviewed the laboratory results. ASSESSMENT/ PLAN: Belem Smith is a 51 y.o. female with Colostomy in place (CMS/HCC) (HCC), status post colostomy takedown. Now POD1, will [...] Stratton, PT - 05/19/2022 11:45 AM CDT [facility] Physical Therapy Treatment Patient Name: Belem Smith Date of Service: 05/19/2022 Date of : 1970 Age: 51 y.o. female Room: [place] [address]/[address] Admit Date: 05/18/2022 Attending Provider: Crispin Shen MD Primary Diagnosis: Colostomy in place (CMS/HCC) (HCC) Subjective HPI: Belem Smith is a 51 [...] discharge disposition. Vargas Stratton PT * Cyndee Romero SLIP COVER ESTIMATOR - 05/19/2022 11:35 AM CDT [facility] Daily Progress Note Colon and Rectal Surgery PATIENT NAME: Belem Smith : 1970 ADMIT DATE: 05/18/2022 5:04 AM LOS: 1 Subjective CHIEF COMPLAINT: Colostomy in place (CMS/HCC) (HCC) INTERVAL HISTORY: No acute events overnight. Patient feels well, she is tolerating clear liquids without nausea or vomiting. She endorses bowel movements, without melena or hematochezia. Her pain iswell controlled Objective MEDICATIONS: Scheduled: acetaminophen, 1,000 mg, [...] 51 y.o. female with Colostomy in place ([facility]) ([facility]), status post colostomy takedown. Now [...] of care as documented in the resident/fellow/ SLIP COVER ESTIMATOR note. documented in this encounter H&P Notes [...] I have looked at those results from [facility]. They show no fistula. Review [...] created in part with the assistance of [employer] voice recognition software. Project Engineering Director variances and error may occur. Not every sentence has been reviewed in its entirety. For questions about the documentation above, please contact Dr. Shen. documented in this encounter Consult Notes * Rosina Waters, OT - 05/19/2022 8:49 AM CDT [facility] Occupational Therapy Evaluation Patient Name: Belem Smith Date of Service: 05/19/2022 Date of : 1970 Age: 51 y.o.female Room: [address] Admit Date: 05/18/2022 Attending Provider: Crispin Shen MD Primary Diagnosis: Colostomy in place ([facility]/HCC) ([facility]) Subjective HPI: Belem Smith is [...] none Home ADL Equipment: None Level of Pickett: Independent with ADLs, Independent with transfers, and Independent with ambulation Driving: Yes Vocational/Occupation: [employer] Employment Fall within the last 6 months: No Objective Vitals: Vital signs stable prior to session per RN and chart review, patient with no adverse signs/symptomsthroughout session Pain Assessment: Pre-therapy pain: Post-therapy pain: Location: abdomen Pain Intervention: patient [...] Salamanca, PT - 05/18/2022 2:07 PM CDT [facility] Physical Therapy Initial Evaluation Patient Name: Belem Smith Date of Service: 05/18/2022 Date of : 1970 Age: 51 y.o. female Room: [address] Admit Date: 05/18/2022 Attending Provider: Crispin Shen MD Primary Diagnosis: Colostomy in place (CMS/HCC) ([facility]) Subjective HPI: Belem Smith is a 51 y.o. female s/p colostomy reversal on 05/18/2022. Patient is agreeableto physical therapy evaluation. Past Medical History: Diagnosis Date Anxiety Depression Obesity Past Surgical History: Procedure Laterality Date ABDOMINOPLASTY 2009 APPENDECTOMY 1977 COLONOSCOPY 2008 COLOSTOMY 04/18/2020 ENDOMETRIAL [...] Independent with ambulation Comments: Driving: Yes Vocational/Occupation: [employer] Employment Falls Within the Last 6 Months: No Objective Vitals: Blood pressure: 113/68 mmHg, Heart rate: 104 beats per minute, SPO2: 96% Comments: Activity Tolerance: Endurance: Endurance does not limt participation in activity. Pain Assessment: Pre-evaluation pain: 10 Post-evaluation pain: 10 Location: abdomen Pain intervention: Patient received pain [...] medical diagnosis,and any other specialized needs. The Publicity Agent and/or Clerk Cashier will work with the patient and the intradisciplinary team to determine the most appropriate discharge disposition. Ernie Salamanca, PT documented in this encounter Nursing Notes * Adilene Powers RN - 05/20/2022 7:00 AM CDT Informed patient of 1000 mL free water restriction. Strict I &O in place. * Mckenna Weir RN - 05/19/2022 2:30 AM CDT At 2000 on 05/18/22 Dr. Steinberg gave the ok to change the patient's surgical dressing due to saturation. Provider also notified at 0221 on 05/19/22 about patient's output per Best [...] will decrease Outcome: Progressing * Plan of Care - Mariama Elliott RN - 05/19/2022 5:38 [...] - 05/19/2022 1:31 PM CDT Report per [facility]: Plan of care was discussed with the [...] Crispin Shen MD Diagnosis: Colostomy in place ([facility]) ([facility]) Surgical Procedure: Colostomy takedown No [...] between clamps with 0 Vicryl ties. A [id number] functional end-to-end anastomosis was created with a NII 80 stapler. The resulting enterotomy was closed with a TA 60 stapler. A 3- 0 Vicryl Lembert suture was placed in the crotch of the anastomosis. The anastomosis was inspected and seen to be healthy, widely patent, and intact. The anastomosis was reduced back down into the abdomen. The fascia was closed with [id number] 1. Vicryl sutures. Thewound was irrigated the [...] 15 AM CDT Colostomy in place (CMS/HCC) ([facility]) POCT HCG, URINE Routine 05/18/2022 [...] LAB BLOOD ORDERABLES Final Res ult JAZZ MONTOYACH [address] [facility]. Department [place] [address] * Basic metabolic panel (05/20/2022 11:54 AM CDT) Pathologist [facility] Sodium 144 135 - 145 mmol/L [facility] Potassium, pl 4.2 3.3 - 4.9 mmol/L [facility] Chloride 106 97 - 110 mmol/L [facility] CO2 31 22 - 32 mmol/L [facility] Anion gap 7 2 - 15 mmol/L [facility] BUN 9 8 - 25 mg/dL [facility] Creatinine 0.76 0.60 - 1.10 mg/dL [facility] Glucose 113 70 - 199 mg/dL [facility] Comment: Interpretive Data Fasting glucose >/= [...] 2017. Calcium 8.6 8.5 - 10.3 mg/dL [facility] Blood 05/20/2022 11:5 4 AM CDT 05/20/2022 11:54 AM CDT us Crispin Shen MD LAB BLOOD ORDERABLES Final Res ult [facility] [address] [facility]. [place] [address] * eGFR (05/20/2022 3:31 AM CDT) Pathologist [facility] eGFR 105 mL/min/1. 73 m2 [facility] Comment: Interpretive Data Reference Interval Normal ?>/= [...] MD LAB BLOOD ORDERABLES Final Res ult [facility] [address] [facility]. [place] [address] * (ABNORMAL) Basic metabolic panel (05/20/2022 3:31 AM CDT) Sodium 130(L) 135 - 145 mmol/L [facility] Potassium, pl 3.9 3.3 - 4.9 mmol/L [facility] Chloride 98 97 - 110 mmol/L [facility] CO2 27 22 - 32 mmol/L [facility] Anion gap 5 2 - 15 mmol/L [facility] BUN 8 8 - 25 mg/dL [facility] Creatinine 0.70 0.60 - 1.10 mg/dL [facility] Glucose 96 70 - 199 mg/dL [facility] Comment: Interpretive Data Fasting glucose >/= [...] 2017. Calcium 8.4(L) 8.5 - 10.3 mg/dL [facility] Blood 05/20/2022 3:31 AM CDT 05/20/2022 3:31 AM CDT Crispin Shen MD LAB BLOOD ORDERABLES Final Res ult Performing Organization Address [facility] de Phone Number [facility] [address] [facility] [employer] [place], [place] [id number] * Magnesium (05/20/2022 3:31 AM CDT) Magnesium 1.5 1.4 - 2.5 mg/dL [facility] Comment: Reference Data. Reference values for Labor and Delivery patients: < or = 0.7 mg/dL to > or = 7.3 mg/dL Current reference data last reviewd on 05/19/2015. Blood 05/20/2022 3:31 AM CDT 05/20/2022 3:31 AM CDT Crispin Shen MD LAB BLOOD ORDERABLES Final Res ult Performing Organization Address [facility] de Phone Number [facility] [address] [facility]. [facility] [employer] [place], [place] [id number] * Phosphorus (05/20/2022 3:31 AM CDT) Phosphorus, pl 2.7 2.3 - 4.5 mg/dL [facility] Blood 05/20/2022 3:31 AM CDT 05/20/2022 3:31 AM CDT Crispin Shen MD LAB BLOOD ORDERABLES Final Res ult JAZZ LARES [address] [place] [employer] [place], [place] [id number] * (ABNORMAL) CBC without differential (05/20/2022 3:27 AM CDT) WBC 8.9 3.8 - 9.9 K/cumm [facility] Hgb 10.2(L) 11.9 - 15.5 g/dL [facility] Hct 29.5(L) 35.6 - 45.5 % [facility] Plt 162 150 - 400 K/cumm [facility] MPV 10.7 9.1 - 12.3 fL [facility] RBC 3.24(L) 3.90 - 5.20 M/cumm [facility] MCV 91.0 81.3 - 96.4 fL [facility] MCH 31.5 27.1 - 33.3 pg [facility] W MCHC 34.6 32.3 - 35.7 g/dL [facility] RDW CV 12.1 11.1 - 14.9 % [facility] RDW SD 40.0 35.7 - 48.1 fL [facility] NRBC abs 0.00 0.00 - 0.01 K/cumm [facility] Blood 05/20/2022 3:27 AM CDT 05/20/2022 3:31 AM CDT Crispin Shen MD LAB BLOOD ORDERABLES Final Res ult JAZZ [place]AR[place] [address] [employer] [place], [place] [id number] * eGFR (05/18/2022 9:13 PM CDT) eGFR 105 mL/min/1. 73 m2 [facility] Comment: Interpretive Data Reference Interval Normal ?>/= [...] Res ult Performing Organization Address City/State/ZIP Co w[place] Phone Number [facility] [address] [facility]. [place] [address] * (ABNORMAL) Basic metabolic panel (05/18/2022 9:13 PM CDT) Sodium 132(L) 135 - 145 mmol/L [facility] Potassium, pl 4.5 3.3 - 4.9 mmol/L [facility] Chloride 99 97 - 110 mmol/L [facility] CO2 25 22 - 32 mmol/L [facility] Anion gap 8 2 - 15 mmol/L [facility] BUN 8 8 - 25 mg/dL [facility] Creatinine 0.70 0.60 - 1.10 mg/dL [facility] Glucose 144 70 - 199 mg/dL [facility] Comment: Interpretive Data Fasting glucose >/= [...] 2017. Calcium 8.6 8.5 - 10.3 mg/dL [facility] Blood 05/18/2022 9:13 PM CDT 05/18/2022 9:23 PM CDT Narrative [facility] - 05/18/2022 9:40 PM CDT Obtain POD 0 at 2200. us Crispin Shen MD LAB BLOOD ORDERABLES Final Res ult [facility] [address] [facility]. [place] [address] * (ABNORMAL) CBC without differential (05/18/2022 9:13 PM CDT) [facility] WBC 19.2(H) 3.8 - 9.9 K/cumm [facility] Hgb 11.3(L) 11.9 - 15.5 g/dL [facility] Hct 33.9(L) 35.6 - 45.5 % [facility] Plt 231 150 - 400 K/cumm [facility] MPV 10.5 9.1 - 12.3 fL [facility] RBC 3.68(L) 3.90 - 5.20 M/cumm [facility] MCV 92.1 81.3 - 96.4 fL [facility] MCH 30.7 27.1 - 33.3 pg [facility] MCHC 33.3 32.3 - 35.7 g/dL [facility] RDW CV 11.9 11.1 - 14.9 % [facility] RDW SD 40.5 35.7 - 48.1 fL [facility] NRBC abs 0.00 0.00 - 0.01 K/cumm [facility] Blood 05/18/2022 9:13 PM CDT 05/18/2022 9:23 PM CDT Narrative JAZZ MONTOYACH - 05/18/2022 9:26 PM CDT Obtain POD 0 at 2200. Crispin Shen MD LAB BLOOD ORDERABLES Final Res ult JAZZ LARES [address] [facility] [employer] [place] [address] * POCT hCG, urine (05/18/2022 6:14 AM CDT) HCG, ur, POC Negative Lot Number [id number] QC Backgroud Clear Acceptable QC Control Line Acceptable Urine 05/18/2022 6:14 AM CDT [facility] Provider POINT OF CARE TEST ORDERA BLES Final Result documented in this encounter Visit Diagnoses Diagnosis Colostomy in place (CMS/HCC) (HCC)- Primary Colostomy status documented in this encounter Admitting Diagnoses Diagnosis Colostomy in place (CMS/HCC) (HCC) Colostomy status documented in this encounter Administered Medications Inactive Administered Medications - up to 3 most recent administrations Medication Order MAR Action Action Date Dose Rate Site acetaminophen (TYLENOL) tablet 1,000 mg 1,000 mg, oral, Once, On Ana 05/18/22 at 0615, For 1 dose, Pre-Op, Give upon arrival to holding area. , Indications: Pre-Emptive AnalgesiaIndications:Pre-Emptiv e Analgesia Given 05/18/2022 6:04 AM CDT 1,000 mg acetaminophen (TYLENOL) tablet 1,000 mg 1,000 mg, oral, Every 6 hours scheduled, First dose on Ana 05/18/22 at 1200, Indications: PainIndications:Pain Given 05/20/2022 11:21 AM CDT 1,000 mg Given 05/20/2022 3:13 AM CDT 1,000 mg Given 05/19/2022 5:52 PM CDT 1,000 mg alvimopan (ENTEREG) capsule 12 mg 12 mg, oral, Once, On Ana 05/18/22 at 0615, For 1 dose, Pre-Op, Give immediately upon arrival to holding area (do not prescribe if patient is currently receiving chronic opioid treatment). , Indications: Postoperative Ileus, Postoperative ileus prophylaxisIndications:Postoperati ve Ileus,Postoperative ileus prophylaxis Given 05/18/2022 6:05 AM CDT 12 mg dextrose 5% and Lactated Ringer's infusion 75 mL/hr, intravenous, Continuous, Starting on Ana 05/18/22 at 1130, For 16 hours, Discontinue after breakfast post-op day 1. New Bag 05/19/2022 12:38 AM CDT 75 mL/hr 75 mL /hr Rate/Dose Verify 05/18/2022 8:16 PM CDT 75 mL/hr 75 mL/h r New Bag 05/18/2022 11:07 AM CDT 75 mL/hr 75 mL/hr enoxaparin (LOVENOX) syringe 40 mg 40 mg, subcutaneous, Daily (for enoxaparin), First dose on Ana 05/18/22 at 2100, Indications: Deep Vein Thrombosis PreventionIndications:Deep Vein Thrombosis Prevention Given 05/19/2022 9:12 PM CDT 40 mg Left Lower Abdomen Given 05/18/2022 8:12 PM CDT 40 mg Le ft Lower Abdomen gabapentin (NEURONTIN) capsule 300 mg 300 mg, oral, Once, On Ana 05/18/22 at 0615, For 1 dose, Pre-Op, Give upon arrival to holding area. , Indications: Pre-Emptive AnalgesiaIndications:Pre-Emptive Analgesia Given 05/18/2022 6:05 AM CDT 3 00 mg gabapentin (NEURONTIN) capsule 300 mg 300 mg, oral, Every 12 hours scheduled, First dose on Ana 05/18/22 at 2100, Indications: PainIndications:Pain Given 05/20/2022 7:31 AM CDT 300 mg Given 05/19/2022 9:14 PM CDT 300 mg Given 05/19/2022 8:12 AM CDT 300 mg heparin 5,000 unit/mL injection 5,000 Units 5,000 Units, subcutaneous, Once, On Ana 05/18/22 at 0615, For 1 dose, Pre-Op, Indications: Deep Vein Thrombosis PreventionIndications:Deep Vein Thrombosis Prevention Given 05/18/2022 6:08 AM CDT 5,000 Units Right Lower Abdomen HYDROmorphone (DILAUDID) injection 0.2 [...] Opioid Tolerance, Pain, Severe Pain with Opioid ToleranceIndications:Chronic Pain with Opioid Tolerance,Pain,Severe Pain with Opioid Tolerance Given 05/18/2022 10:09 AM CDT 0.2 mg Given 05/18/2022 9:32 AM CDT 0.2 mg Given 05/18/2022 9:22 AM CDT 0.2 mg HYDROmorphone (DILAUDID) injection 0.2 mg 0.2 mg, intravenous, Administer over 2 Minutes, Every 4 hours PRN, 2nd line for pain, Starting on Ana 05/18/22 at 1324 Given 05/18/2022 8:12 PM CDT 0.2 mg Given 05/18/2022 1:52 PM CDT 0.2 mg ibuprofen (ADVIL,MOTRIN) tablet 600 mg 600 mg, oral, Every 8 hours scheduled, First dose on [place] 05/21/22 at 1400, Start ibuprofen after the [...] Given 05/19/2022 10:05 PM CDT 15 mg Lactated Ringer's (LR) infusion 30 mL/hr, [...] 6:11 AM CDT 30 mL/hr 30 mL/hr Lactated Ringer's (LR) infusion 125 mL/hr, intravenous, Continuous, Starting on Ana 05/18/22 at 0945, For 4 hours, Phase I, Discontinue upon discharge from PACU to the floor. New Bag 05/18/2022 10:16 AM CDT 125 mL/hr 125 mL/hr New Bag 05/18/2022 9:34 AM CDT 125 mL/hr 125 mL/hr magnesium oxide (MAG-OX) tablet 400 mg 400 mg, oral, Once, On 05/20/22 at 0600, For 1 dose, 1 tablet = Magnesium oxide 400 mg = 241.3 mg elemental magnesium, Indications: hypomagnesemiaIndications:hypomagnesemia Given 05/20/2022 7:01 AM CDT 400 mg ondansetron (ZOFRAN) injection 4 mg 4 mg, intravenous, Administer over 2 Minutes, Once as needed, nausea, vomiting, Starting on Ana 05/18/22 at 0902, For 1 dose, Phase I, Proceed to prochlorperazine if ondansetron has been given within the last 6 hours. Given 05/18/2022 9:15 AM CDT 4 mg oxyCODONE (ROXICODONE) tablet 5 mg 5 mg, oral, Every 4 hours PRN, 1st line for pain, Starting on Ana 05/18/22 at 1050, Indications: PainIndications:Pain Given 05/20/2022 7:29 AM CDT 5 mg Given 05/20/2022 3:14 AM CDT 5 mg Given 05/19/2022 10:05 PM CDT 5 mg prochlorperazine (COMPAZINE) injection 5 mg 5 mg, intravenous, Administer over 2 Minutes, Once as needed, nausea, vomiting, Give second 5 mg dose if nausea persistent after 15 minutes., Starting on Ana 05/18/22 at 0902, For 2 doses, Phase I, If nausea/vomiting not relieved by ondansetron within 30 minutes or if ondansetron has been given within the last 6 hours. Given 05/18/2022 9:51 AM CDT 5 mg scopolamine patch 72 hour 1 patch 1 [...] Motion Sickness, Prevention of Post-Operative Nausea and VomitingIndications:Motion Sickness,Prevention of Motion Sickness,Prevention of Post-Operative Nausea and Vomiting Medication Applied 05/18/2022 6:08 AM CDT 1 patch Behind Right Ear sodium chloride 0.9% flush 0.5-20 mL 0.5-20 [...] Pre-Emptive Analgesia 0604 (Given - Provider: Derian Vilchis, CHRIS) acetaminophen (TYLENOL) tablet 1,000 mg 1,000 mg, oral, Every 6 hours scheduled, First dose on Ana 05/18/22 at 1200, Indications: Pain 1107 (Given - Provider: Riaz Baxter RN)1730 (Given - Provider: Riaz Baxter RN) 0037 (Given - Provider: Mckenna Weir, CHRIS)0453 (Given - Provider: Mckenna Weir RN)1118 (Given - Provider: Mikayla Gomes, CHRIS)1752 (Given - Provider: Mariama Elliott RN) 0225 (Not Given - Provider: Adilene Powers RN - Reason: Patient/family refused)0313 (Given - Provider: Adilene Powers RN)1121 (Given - Provider: Mikayla Gomes, CHRIS) alvimopan (ENTEREG) capsule 12 mg (COMPLETED) 12 mg, oral, Once, On Ana 05/18/22 at 0615, For 1 dose, Pre-Op, Give immediately upon arrival to holding area (do not prescribe if patient is currently receiving chronic opioid treatment). , Indications: Postoperative Ileus, Postoperative ileus prophylaxis 0605 (Given - Provider: Derian Vilchis, CHRIS) dexAMETHasone (DECADRON) 4 mg/mL injection 8 mg (COMPLETED) 8 mg, intravenous, Administer over 2 Minutes, Once, On Naa 05/18/22 at 0730, For 1 dose, Intra-Op 0729 (Given - Provider: Yvonne Pelayo CRNA) enoxaparin (LOVENOX) syringe 40 mg 40 mg, subcutaneous, Daily (for enoxaparin), First dose on Ana 05/18/22 at 2100, Indications: Deep Vein Thrombosis Prevention 2011 (Given - Provider: Mckenna Weir, CHRIS) 2111 (Given - Provider: Adilene Powers, CHRIS)2112 [...] 2011 (Given - Provider: Mckenna Weir RN) 0812 (Given - Provider: Mikayla Gomes, CHRIS)2114 (Given - Provider: Adilene Powers, CHRIS) 0731 (Given - Provider: Mikayla Gomes, CHRIS) heparin 5,000 unit/mL injection 5,000 Units (COMPLETED) 5,000 Units, subcutaneous, Once, On Ana 05/18/22 at 0615, For 1 dose, Pre-Op, Indications: Deep Vein Thrombosis Prevention 0608 (Given - Provider: Derian Vilchis, CHRIS) ibuprofen (ADVIL,MOTRIN) tablet 600 mg(Linked Group 1) 600 mg, oral, Every 8 hours scheduled, First dose on [place] 05/21/22 at 1400, Start ibuprofen after the ketorolac doses are finished., Indications: Pain ketorolac (TORADOL) 30 mg/mL (1 mL) injection 15 mg(Linked Group 1) 15 mg, intravenous, Every 8 hours scheduled, First dose on Ana 05/18/22 at 1400, For 9 doses, Indications: Postoperative Acute Pain 1352 (Given - Provider: Riaz Baxter RN)2223 (Given - Provider: Mckenna Weir RN) 0454 (Given - Provider: Mckenna Weir RN)1354 (Given - Provider: Mariama Elliott, CHRIS)211 (Not Given - Provider: Adilene Powers RN - Reason: Patient/family refused)220 (Given - Provider: Adilene Powers, CHRIS) 0701 (Given - Provider: Adilene Powers, CHRIS)1313 (Given - Provider: Mikayla Gomes RN) magnesium oxide (MAG-OX) tablet 400 mg (COMPLETED) 400 mg, oral, Once, On 05/20/22 at 0600, For 1 dose, 1 tablet = Magnesium oxide 400 mg = 241.3 mg elemental magnesium, Indications: hypomagnesemia 07 (Given - Provider: Adilene Powers RN) methadone injection syringe 7 mg (COMPLETED) 7 [...] Weir RN)1354 (Given - Provider: Mariama Elliott, RN)2206 (Given - Provider: Adilene Powers, RN) 0702 (Given - Provider: Adilene Powers, RN)1317 (Given - Provider: Mikayla Gomes, RN) Continuous Medication Order 05/18/2022 05/19/2022 05/20/2022 dextrose 5% and Lactated Ringer's infusion (CANCELED) 75 mL/hr, intravenous, Continuous, Starting on Ana 05/18/22 at 1130, For 16 hours, Discontinue after breakfast post-op day 1. 1107 (New Bag - Provider: Riaz Baxter RN)2016 (Rate/Dose Verify - Provider: Mckenna Weir RN) 0038 (New Bag - Provider: Mckenna Weir RN)0806 (Stopped - Provider: Mikayla Gomes, CHRIS) Lactated [...] Shields RN)0934 (New Bag - Provider: Rhina Shields RN)1016 (New Bag - Provider: Rhina Shields [...] Rhina Shields RN)1009 (Given - Provider: Rhina Shields RN) HYDROmorphone (DILAUDID) injection 0.2 mg 0.2 [...] 0914 (Due)0915 (Given - Provider: Rhina Shields, RN) ondansetron (ZOFRAN) injection 4 mg 4 mg, intravenous, Administer over 2 Minutes, Every 6 hours PRN, nausea, vomiting, Starting on Ana 05/18/22 at 1050, Proceed to prochlorperazine if no relief within 30 minutes. oxyCODONE (ROXICODONE) tablet 5 mg 5 mg, oral, Every 4 hours PRN, 1st line for pain, Starting on Ana 05/18/22 at 1050, Indications: Pain 1106 (Given - Provider: Riaz Baxter, CHRIS)1616 (Given - Provider: Riaz Baxter, CHRIS) 1309 (Given - Provider: Edel Campbell RN)1752 (Given - Provider: Mariama Elliott, CHRIS)2205 (Given - Provider: Adilene Powers, CHRIS) 0314 (Given - Provider: Adilene Powers, CHRIS)0729 (Given - Provider: Mikayla Gomes RN) prochlorperazine (COMPAZINE) injection 10 mg 10 mg, [...] 6 hours. 0951 (Given - Provider: Rhina Shields, RN) sodium chloride 0.9% flush 0.5-20 mL [...] Every 8 hours scheduled, First dose on [place] 05/21/22 at 1400, Start ibuprofen after the ketorolac doses are finished., Indications: Pain documented in this encounter Orders Medications Ordered That Max ht Not Have Been Administered Count Last Ordered Date First Ordered Date acetaminophen (TYLENOL) tablet 500 mg 1 alvimopan (ENTEREG) capsule 12 mg 1 022 bupivacaine-EPINEPHrine (MAR LARISA with EPI) 0.25 %-1:200,000 preservative free injection 05/18/2022 Carrier Fluids for Secondary Infusion - 0.9% Sodium Chloride 1 05/18/2022 clindamycin (CLEOCIN) 600 mg , gentamicin (GARAMYCIN) 240 mg in sodium chloride 0.9% 500 mL irrigation solution 05/18/2022 dexAMETHasone (DECADRON) 4 m g/mL injection 8 mg 1 05/18/2022 diphenhydrAMINE (BENADRYL) i njection 12.5 mg 1 05/18/2022 ertapenem (INVanz) 1,000 mg in sodium chloride 0.9% 100 mL IVPB 05/18/2022 famotidine (PEPCID) injection 20 mg 05/18 fentaNYL (SUBLIMAZE) preserv ative free injection 25 mcg 05/18/2022 hydrALAZINE (APRESOLINE) injection 5 mg 1 0 05/18/2022 HYDROcodone-acetaminophen (N ORCO) 5-325 mg per tablet 1 tablet 1 05/18/2022 ibuprofen (ADVIL,MOTRIN) tablet 600 mg labetaloL (NORMODYNE,TRANDAT E) injection 5 mg 05/18/2022 meperidine (DEMEROL) preserv ative free injection 12.5 mg 1 05/18/2022 methadone injection syringe 7 mg 05/18/20 naloxone (NARCAN) 0.4 mg/mL injection 0.04-0.4 mg 1 05/18/2022 ondansetron (ZOFRAN) injection 4 mg 1 05/18 prochlorperazine (COMPAZINE) injection 10 mg 1 05/18/2022 sodium chloride 0.9% flush 0.5-20 mL 1 04/21 Admission Count Last Ordered Date First Orde red Date ADMIT TO INPATIENT 1 05/18/2022 Transfer Count Last Ordered Date First Orde red Date TRANSFER PATIENT TO NEW UNIT 1 05/18/2022 Discharge Count Last Ordered Date First Orde red Date DISCHARGE PATIENT 1 05/20/2022 documented in this encounter Care Teams Cement Paver Relationship Specialty Start Date End Date Crispin Shen MD Surgeon Colon and Rectal Surgery 09/09/20 Kemi Schmitz [address] [place] [address] Surgeon Colon and Rectal Surgery 05/16/21 documented as of this encounter
--- OUTSIDE RECORDS SUMMARY | 2024-08-18 09:54 | XMS_ITS | Encounter Summary ---
Author Organization [facility] Address [address] [facility] [address] [place] [address] Phone Care Team Providers Care Manager Traffic Name Role Phone Crispin Shen MD Unavailable [phone] Kemi Schmitz Unavailable Reason for Visit * Reason Onset Date Comments Confirmation 05/17/2022 Encounter Details Date Type Department Care Team (Late st Contact Info) Description 05/17/2022 Telephone [facility] [address] [place] [address] Medical Office Building [address] [place] [address] Ana M Baig, A Confirmation Social History Tobacco Use Types Packs/Day [...] How often do you attend chur or jewish services? 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 COVID Test: fully vaccinated Medication held: Prep: Miralax/Duloclax. Antibiotics: Flagyl/Neomycin. Immunonutrition: not taking, givenEnsure Surgery and will have completed 5 days of immunonutrition. Shower: patient aware to use the night before and morning of procedure Carbohydrate: 2 bottles of Ensure Pre-Surgery the evening before, and 1 bottle to be completed by 4:15 am. Patient reminded to bring Patient Journey Guides: Yes Cysto/Stent placement: No Confirmed arrival time of 5:15 am at [facility], report to Main Entrance. Patient was made aware of current visitor policy and verbalized understanding. Pre-cert has been verified documented in this encounter Plan of Treatment Not on file documented as of this encounter Visit Diagnoses Not on filedocumented in this encounter Care Teams Manager Traffic Relationship Specialty Start Date End Date Crispin Shen MD Surgeon Colon and Rectal Surgery 09/09/20 Kemi Schmitz [address] [place] [address] Surgeon Colon and Rectal Surgery 05/16/21 documented as of this encounter
--- OUTSIDE RECORDS SUMMARY | 2024-08-18 09:54 | XMS_ITS | Encounter Summary ---
Author Organization [facility] Address [address] [place] [address] Phone Care Team Providers Care Ocular Care Aide Name Role Phone Crispin Shen MD Unavailable [phone] Kemi Schmitz Unavailable Reason for Visit * Reason Onset Date Comments Follow-up 04/10/2022 Encounter Details Date Type Department Care Team (Late st Contact Info) Description 04/10/2022 Telephone [facility] Department of Surgery, Section of Colon and Rectal Surgery [address] [facility] Advanced Medicine 12th Floor, [place] [address] Ana M Baig, A Follow-up Social History Tobacco Use Types Packs/Day Years [...] How often do you attend chur or methodist services? 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 Per Dr. Shen patient needs to be scheduled for the following. ROV in 2 weeks: 04/21/2022 at 3:15 pm [facility] EUA in 4 weeks: 05/05/22 at 10:30 am [facility] Colostomy closure: waiting for 05/05 EUA results documented in this encounter Plan of Treatment Not on file documented as of this encounter Visit Diagnoses Not on filedocumented in this encounter Care Teams Ocular Care Aide Relationship Specialty Start Date End Date Crispin Shen MD Surgeon Colon and Rectal Surgery 09/09/20 Kemi Schmitz [address] [place] [address] Surgeon Colon and Rectal Surgery 05/16/21 documented as of this encounter
--- OUTSIDE RECORDS SUMMARY | 2024-08-18 09:54 | XMS_ITS | Encounter Summary ---
Author Organization [facility] Address [address] [place] [address] Care Team Providers Care Wool Mixer Name Role Phone Crispin Shen MD Unavailable [phone] Kemi Schmitz Unavailable Encounter Details Date Type Department Care Team (Late st Contact Info) Description 05/05/2022 11:59 PM CDT Anesthesia Event [facility] Surgery at [facility] Advanced Medicine [address] [place] [address] Andreia Day, FILLING MACHINE OPERATOR [address] [facility] [id number] [place] [address] Anesthesia Record Procedure Summary Procedure Name Responsible Anesthesiologist Anesthesia Start Time Anesthesia Stop Time EXAM UNDER ANESTHESIA - RECTUM (canceled) Events No events on file. Meds * Agents No agents on file. * Blood No blood administrations on file. Lines, Drains, and Airways No LDAs on file. 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 [facility] Preoperative [facility] Planning Preoperative Evaluation Record Evaluation type/location[place] [place] [facility] [place] procedure site: [facility] OR Date: 04/18/22 NOTE: This note represents a preoperative evaluation initiated via telephone interview. NO PHYSICALEXAM was performed at the time of initial assessment. A physical exam may be added to this note anddocumented below. Anesthesia Evaluation Belem Smith is a 51 y.o. female Procedure(s): EXAM UNDER ANESTHESIA - RECTUM Pre-Op Diagnosis Codes: * Anal fistula [K60.3] HISTORY HPI Belem is a 51 year old female with hx of anal fistula and is planned for Exam under anesthesia. Past Medical History Information obtained from: patient and chart. Neurological + Psychiatric history - anxiety Pertinent negatives: seizures; neuromuscular disease; CVA/stroke; TIA; CEA; ICA stenosis; dementia/mild cognitive impairment and carotid artery stent Cardiovascular Pertinent negatives: hypertension ; CAD ; VA ; CABG ; valvular heart disease; valve replacement; atrial fibrillation; arrhythmia; pacemaker/ICD; PVD; DVT/PE; negative for CHF; drug-eluting stent(s); bare metal stent(s) and coronary angioplasty Respiratory Pertinent negatives: COPD; asthma; sleep apnea (CANDE); pulmonary hypertension; no O2 use outside thehospital and non-smoker Hepatic / Heme + History of anemia Pertinent negatives: liver disease; history of thrombocytopenia and history of Kimmy positive Gastrointestinal Pertinent negatives: GERD and hiatal hernia Renal / Pertinent negatives: dialysis and nephrolithiasis Musculoskeletal/Pain Pertinent negatives: chronic opioid use and previous treatment for opioid use disorder Endocrine / Other Pertinent negatives: diabetes mellitus; thyroid disease; cancer history; rheumatological disease and transplanted organ Functional Capacity Functional capacity: 4-6 METs Comments: Pt is able to walk 3-4 blocks w/o sob/cp. Day of Surgery assessments + Possibility of assessed - ruled out by patient's provided history. Comments: Uterine ablation 2010 Review of Systems + vision loss (Wears corrective glasses/contacts) Pertinent negatives: productive cough; wheezing; SOB; recent cold/flu; fever; chest pain; palpitations; orthopnea; pedal edema; PND; heavy menses; Sickle Cell disease/trait; previous transfusion; transfusion reaction; melena/hematochezia; easy bruising; bleeding problems; syncope; dizziness; muscleweakness; numbness/tingling; hard of hearing; heartburn; nausea; dysphagia; diarrhea; dentures/partials; chipped/loose teeth; abdominal pain; diaphoresis [...] their COVID-19 vaccine. COVID-19 testing not indicated. TPAP complete. . Preoperative evaluation performed by Rena Hobbs NP on 04/18/22 at 04/18/22 PM . Patient Active Problem List Diagnosis ??? Rectovaginal fistula ??? Anal fistula ??? Vaginal fistula ??? 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 Anxiety [...] Complete Set By: Yesenia Cabrera RN at 04/14/2022 9:31 AM Taking? Last Dose Start Date End Date Provider ascorbic acid (VITAMIN C) 1,000 mg tablet 04/13/2022 -- -- Tyra Crawford MD cholecalciferol (VITAMIN D-3) 2000 unit capsule 04/13/2022 -- -- Tyra Crawford MD LORazepam (ATIVAN) 0.5 mg tablet 04/13/2022 07/09/20 -- Tyra Crawford MD lysine 1,000 mg tablet 04/13/2022 -- -- Tyra Crawford MD metroNIDAZOLE (FLAGYL) 500 mg tablet Not Taking 03/16/22 -- Crispin Shen MD Take one tablet at 1pm, 2pm, and 10pm the day before surgery Patient not taking: Reported on 04/14/2022 multivitamin capsule 04/13/2022 -- -- Tyra Crawford MD neomycin (MYCIFRADIN) 500 mg tablet Not Taking 03/16/22 -- Crispin Shen MD Take two tablets by mouth at 1pm, 2pm, and 10pm the day before surgery Patient not taking: Reported on 04/14/2022 omega-3 fatty acids-fish oil 300-1,000 mg capsule 04/13/2022 -- -- Tyra Crawford MD ondansetron ODT (ZOFRAN-ODT) 8 mg disintegrating tablet Not Taking 03/16/22 -- Crispin Shen MD Take one tablet at 11am when starting bowel prep, take one tablet as needed every six to eight hours after Patient not taking: Reported on 04/14/2022 turmeric root extract 500 mg capsule 04/13/2022 -- -- Tyra Crawford MD zinc 50 mg tablet 04/13/2022 -- -- Tyra Crawford MD No current [...] Tobacco Never Alcohol Use: Not At Risk ??? Frequency of Alcohol Consumption: Never ??? Average Number of Drinks: Patient does not drink ??? Frequency of Binge Drinking: Never Substance and Sexual Activity Drug Use Never Family History Problem Relation Age of Onset ??? Thyroid cancer Mother ??? Anesthesia problems Neg Hx There were no vitals filed for this visit. PT: No results found for requested labs [...] index score: 100 documented in this encounter Plan of Treatment Not on file documented as of this encounter Visit Diagnoses Not on filedocumented in this encounter Care Teams Wool Mixer Relationship Specialty Start Date End Date Crispin Shen MD Surgeon Colon and Rectal Surgery 09/09/20 Kemi Schmitz [address] [place] [address] Surgeon Colon and Rectal Surgery 05/16/21 documented as of this encounter
--- OUTSIDE RECORDS SUMMARY | 2024-08-18 09:54 | XMS_ITS | Encounter Summary ---
Author Organization [facility] Address [address] [place] [address] Phone Care Team Providers Care Toggler Name Role Phone Crispin Shen MD Unavailable [phone] Kemi Schmitz Unavailable Reason for Visit * Reason Onset Date Comments Follow-up 03/16/2022 Encounter Details Date Type Department Care Team (Late st Contact Info) Description 03/16/2022 Telephone [facility] Department of Surgery, Section of Colon and Rectal Surgery [address] [facility] Advanced Medicine 12th Floor, [place] [address] Ana M Baig, A Follow-up [...] often do you attend chur ch or worship services? 1 to 4 times per year [...] have a drink containing alc ohol? Never 03/04/2021 Q2: How many drinks containi ng alcohol do you have on a typical day when you are drinking? 1 or 2 03/04/2021 Q3: How often do you have six or more drinks on one occasion? Never 03/04/2021 Hunger Vital Sign Answer Date Recorded Within [...] on file Legal Sex Female 9:36 AM DIAL MOUNTER Gender Identity Female 11/16/2020 2:58 PM CDT Sexual Orientation Straight 11/16/2020 2: 58 PM CDT documented as of this encounter Miscellaneous Notes * Telephone Encounter - Ana M Baig RMA - 03/16/2022 1:05 PM CDT Spoke with patient scheduling her EUA on 04/07 and colostomy closure on 04/17. Patient verbalized understanding and agreement with dates, times, locations, and prep. I will send her two my chart messages with virtual PJG giving her the information for each procedure. * Telephone Encounter - Ana M Baig RMA - 03/16/2022 1:04 PM CDT ----- Message from Belem Smith sent at 03/15/2022 5:48 PM CDT ----- Regarding: Appointment Ana M - My day got away for me but I was supposed to follow up with you today if I had not heard anything. If you have time tomorrow can you let me know potential appointment dates that work for Glenn to do my exam in my reversal? Thanks in advance Belem documented in this encounter Plan of Treatment Not on file documented as of this encounter Visit Diagnoses Not on filedocumented in this encounter Care Teams Toggler Relationship Specialty Start Date End Date Crispin Shen MD Surgeon Colon and Rectal Surgery 09/09/20 Kemi Schmitz [address] [place] [address] Surgeon Colon and Rectal Surgery 05/16/21 documented as of this encounter
--- OUTSIDE RECORDS SUMMARY | 2024-08-18 09:54 | XMS_ITS | Encounter Summary ---
Author Organization [facility] Address [address] [place] [address] Phone Care Team Providers Care Disaster Response Director Name Role Phone Crispin Shen MD Unavailable [phone] Kemi Schmitz Unavailable No, Physician Primary Care Provider [phone] Reason for Visit * Reason Onset Date Comments Follow-up 05/23/2022 Encounter Details Date Type Department Care Team (Late st Contact Info) Description 05/23/2022 Telephone [facility] Department of Surgery, Section of Colon and Rectal Surgery [address] [facility] Advanced Medicine 12th Floor, [place] [address] Ana M Baig, A Follow-up [...] any clubs o r organizations such as caodaism groups, unions, fraternal or athletic groups, or [...] on file Legal Sex Female 9: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 She feels like it is gas pain with no improvement. She stated it comes and goes but is more present after eat. When she has a bowel movement the pain improves. She is having normal firm bowels movements about 3-5 times daily. I advised her this sounds like pain when her food is passing through the anastomotic site area of the colon that is healing up. She will call me back if the pain becomes more consistent or if she develops fever, chills, nausea, or vomiting. * Telephone Encounter - Ana M Baig RMA - 05/23/2022 2:19 PM CDT ----- Message from Belem Smith sent at 05/23/2022 10:49 AM CDT ----- Regarding: Post surgery Is it normal to have a feeling of fullness/heaviness in my abdomen after my colostomy reversal last? And also how much pain is normal I am continuing to have any cramping like I???m going tohave diarrhea on a fairly consistent basis. I have had several bowel movements that are solid and formed. I also don???t think there is any blood in them. Thanks documented in this encounter Plan of Treatment Not on file documented as of this encounter Visit Diagnoses Not on filedocumented in this encounter Care Teams Disaster Response Director Relationship Specialty Start Date End Date No, Physician PCP - General 05/22/22 03/07/23 Crispin Shen MD Surgeon Colon and Rectal Surgery 09/09/20 Kemi Schmitz [address] [place] [id number] Surgeon Colon and Rectal Surgery 05/16/21 documented as of this encounter
--- OUTSIDE RECORDS SUMMARY | 2024-08-18 09:54 | XMS_ITS | Encounter Summary ---
Author Organization [facility] Healthcare Address [address] [place] [address] Care Team Providers Care Pipe Fitter Marine Name Role Phone Crispin Shen MD Unavailable [phone] Kemi Schmitz Unavailable Reason for Visit * Auth/Cert Specialty Diagnoses / Procedures Referred By Contac t Referred To Contact Diagnoses Fistula, anal Vaginal fistula Fistula, anal [K60.3] Vaginal fistula [N82.8] Procedures CA SURG DIAGNOSTIC EXAM, ANORECTAL EXAM UNDER ANESTHESIA - RECTUM Referral ID Status Reason Start Date Expiration Date Visits Re quested Visits Authorized [id number] 1 1 Encounter Details Date Type Department Care Team (Late st Contact Info) Description 04/07/2022 8:14 AM CDT Anesthesia Event [facility] [address] [place] [address] Marcello Salinas MD [address] [place] [address] Angela Morrison NP [address] [facility] [phone] [place] [address] Anesthesia Record Procedure Summary Procedure Name Responsible Anesthesiologist Anesthesia Start Time Anesthesia Stop Time EXAM UNDER ANESTHESIA - RECTUM (Anus) Marcello Salinas MD 04/07/22 0814 04/07/22 0829 Events Date Time Event Comment 04/07/2022 0730 0814 An Start 0814 An Start Data 0814 In Room 0816 Start Supplemental O2 0816 An Induction The patient was reevaluated immediately before moderate or deep sedation use and before anesthesia induction. 0816 Anesthesia Ready 0818 Proc Start 0818 Incision Start 0823 an stop data 0823 Proc Fin 0825 Out of Room 0829 An Stop 0829 Handoff to RN I completed my handoff [...] disposition at the time of handoff: PACU Meds Name Total lidocaine (cardiac) syringe 2 % 50 mg propofol 100 mg ketorolac 15 mg Lactated Ringer's (LR) infusion 0 mL * Agents Name O2 N2O Air * Blood No blood administrations on file. [...] Fabiana Irvin RN Peripheral IV Placement Date: 04/07/22; Placement Time: 704; Catheter Size: 22 G; Orientation: Anterior, Distal, Right; Location: Forearm; Site Prep: Chlorhexidine; Inserted by: ellyn green rn; Insertion Attempts: 1; Patient Tolerance: Tolerated well; Removal Date: 04/07/22; Removal Time: 90404/07/22 07 by Yolanda Green RN 04/07/22 09 by Krebel, Andreia M., RN documented in this encounter Social History [...] How often do you attend chur or sabianist services? 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 OPERATING ROOM 02 / [facility] Operating Room Anesthesia Start: 813 Anesthesia Stop: 828 Procedure: EXAM UNDER ANESTHESIA - RECTUM (N/A Anus) Diagnosis: Fistula, anal Vaginal fistula (Fistula, anal [K60.3]) (Vaginal fistula [N82.8]) Providers: Crispin Shen MD Responsible Provider: Marcello Salinas MD Anesthesia Type: MAC ASA Status: 2 Anesthesia Type: MAC Last vitals BP 99/68 Pulse 98 Temp 36.1 ??C (97 ??F) (Temporal) Resp 23 SpO2 98% Anesthesia Post Evaluation Patient location during evaluation: PACU Patient participation: complete - patient participated Level of consciousness: fully awake Pain management: satisfactory to patient Airway patency: adequate Cardiovascular status: acceptable Respiratory status: acceptable Hydration status: acceptable Pt is: normothermic Nausea/Vomiting status: none No complications documented. * Anesthesia Preprocedure Evaluation - Marcello Salinas MD - 03/31/2022 10:46 AM CDT Images from the original note were not included. [facility] Preoperative Assessment and Planning Preoperative Evaluation Record Evaluation type/[place] [facility] procedure site: [facility] OR Date: 03/31/22 NOTE: This note [...] Cardiovascular Pertinent negatives: hypertension ; CAD ; [place] ; CABG ; valvular heart disease; valve [...] ??? Obesity Past Surgical History: Procedure Laterality ??? ABDOMINOPLASTY 2009 ??? APPENDECTOMY 1977 ??? [...] oil 300-1,000 mg capsule 03/30/2022 -- -- ProviderTyra MD ondansetron ODT (ZOFRAN-ODT) 8 mg disintegrating [...] 03/30/2022: 0.74 mg/dL Sandeep index score: 100 DOS Physical Exam Medical history, medications, and allergies reviewed. Attestation: This PAT evaluation Airway Exam: Mallampati: I Cervical ROM: FROM Cardiovascular Exam: Rate: regular Rhythm: regular Negative for Murmur Pulmonary Exam: LCTA, bilat EENT Exam: trachea midline Dental Exam: Appears intact Skin Exam: Skin is warm. Current state: Patient's current state is cooperative and interactive. Anesthesia Plan ASA 2 My patient is approved for the Anesthesia Controlled Medication protocol when under care of a CASINO ACCOUNTANT Planned anesthesia: MAC Induction: Induction: intravenous. Postoperative Plan: Patient's planned disposition post procedure is Outpatient. Informed Consent: Anesthesia plan and risks discussed with patient and spouse. Plan and Consent Comments: Patient reports that she has cervical spine problems and requires her neck to be in neutral position during the case to avoid significant pain Consent and Attending signature: I and/or my [...] MAR Action Action Date Dose Rate Site ketorolac (TORADOL) 30 mg/mL (1 mL) injection intravenous, As needed, Starting on Sun04/07/22 at 0816, Anesthesia Intra-op Given 04/07/2022 8:16 AM CDT 15 mg Lactated Ringer's (LR) infusion 30 mL/hr, intravenous, Continuous, Starting on Sun04/07/22 at 0745, Pre-Op Rate/Dose Change 04/07/2022 8:16 AM CDT 30 mL/hr Rate/Dose Verify 04/07/2022 8:14 AM CDT 30 mL/h r New Bag 04/07/2022 7:08 AM CDT 30 mL/hr 30 mL/hr lidocaine (cardiac) (XYLOCAINE) preservative free injection intravenous, As needed, Starting on Sun04/07/22 at 0816, Anesthesia Intra-op, Indications: Ventricular ArrhythmiasIndications:Ventricular Arrhythmias Given 04/07/2022 8:16 AM CDT 50 mg propofoL (DIPRIVAN) 10 mg/mL IV intravenous, As needed, Starting on Sun04/07/22 at 0816, Anesthesia Intra-op Given 04/07/2022 8:16 AM CDT 100 mg documented in this encounter Care Teams Pipe Fitter Marine Relationship Specialty Start Date End Date Crispin Shen MD Surgeon Colon and Rectal Surgery 09/09/20 Kemi Schmitz [address] [facility] [address] Surgeon Colon and Rectal Surgery 05/16/21 documented as of this encounter
--- OUTSIDE RECORDS SUMMARY | 2024-08-18 09:55 | XMS_ITS | Encounter Summary ---
Author Organization [facility] Address [address] [facility] [address] [place] [address] Phone Care Team Providers Care Quality Control Chemist Name Role Phone Crispin Shen MD Unavailable [phone] Reason for Visit * Reason Comments Post-op Visit S/P 01/21/2021 Exam un owen anesthesia, unroofing of abscess cavity, seton placement * Consultation (Routine) - Closed Specialty Diagnoses / Procedures Referred By Cecy t Referred To Contact Plastic Surgery Diagnoses Rectovaginal fistula Crispin Shen MD Phone: tel: fax: [facility] (All Locations) Referral ID Status Reason Start Date Expiration Date V isits Requested Visits Authorized [id number] Closed Specialty Services Required 10/12/2020 11/11/2021 6 6 Encounter Details Date Type Department Care Team (Late st Contact Info) Description 02/08/2021 8:30 AM CDT Office Visit [facility] Surgery [address] [facility] [address]th [place] [address] [place] [address] Crispin Shen MD [address] [facility] [place] [phone] [place] [address] Rectovaginal fistula (Primary Dx) Social History Tobacco [...] How often do you attend chur or jain services? 1 to 4 times per year 11/24/2020 Do you belong to any clubs o r organizations such as episcopalian groups, unions, fraternal or athletic groups, or school groups? No 11/24/2020 How often do you attend meet ings of the clubs or organizations you belong to? Never 11/24/2020 Are you , , di vorced, , never , or living with a partner? Living with partner 11/24/2020 AUDIT-C Answer Date Recorded Q1: How often do you have a drink containing alc ohol? Monthly or less 01/21/2021 Average Number of Drinks Not on file 021 Q3: How often do you have si x or more drinks on one occasion? 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 Gender Identity Female 11/16/2020 2:58 PM CDT Sexual Orientation Straight 11/16/2020 2: 58 PM CDT documented as of this encounter Last Filed Vital Signs Vital Sign Reading Time Taken Comments Blood Pressure 115/71 02/08/2021 8:36 AM CDT Pulse 77 02/08/2021 8:36 AM CDT Temperature 35.9 ??C (96.6 ??F) 02/08/2021 8:36 AM CD T Respiratory Rate - - Oxygen Saturation - - Inhaled Oxygen Concentration - - Weight 105.5 kg (232 lb 9.6 oz) 02/08/2021 8:36 AM CDT Height 177.8 cm (5' 10 ) 02/08/2021 8:36 AM CDT Body Mass Index 33.37 02/08/2021 8:36 AM CDT documented in this encounter Progress Notes * Crispin Shen MD - 02/08/2021 8:30 AM CDT Colorectal Post-operative Visit Patient ID: Belem Smith is a 50 y.o. female with an anal vaginal fistula we fixed with a gracillis flap repair. She developed the thigh wound infection that complicate her postoperative recovery and then developed purulent drainage from her perineal wound. We took her back to the operating rooma couple of weeks ago. The fistula has recanalized from a more distal anal canal opening to a perineal opening. The muscle flap was in a good position. We placed a seton and we unroofed an abscess cavity in the anal canal. She is back today. She has had much less purulent drainage. She is doing well with much less tenderness also. Physical Exam: The seton is in good place. There is a tiny area of granulation tissue in the distal vagina but I tried to probe and the probe does not pass anywhere. Assessment and Plan: Ms. Smith appears to be ready for an anal fistula plug. I told her that our chances of success with this while she is diverted our much better than routine plug placement. I asked her to curtail her activity after the surgery. Will schedule that for sometime in the next 3-4 weeks. I told her we would bring her back to the office a month after that and then plan an exam under anesthesia and Hypaque study to confirm that this has worked if it appears to have been successful. If so, we can schedule short interval colostomy closure that she wants to do here. 02/08/2021 Crispin Shen MD documented in this encounter Plan of Treatment Not on file documented as of this encounter Visit Diagnoses Diagnosis Rectovaginal fistula- Primary Digestive-genital tract fistula, female documented in this encounter Care Teams Quality Control Chemist Relationship Specialty Start Date End Date Crispin Shen MD Surgeon Colon and Rectal Surgery 09/09/20 documented as of this encounter
--- OUTSIDE RECORDS SUMMARY | 2024-08-18 09:55 | XMS_ITS | Encounter Summary ---
Author Organization [facility] Address [address] [facility] [address] [place] [address] Phone Care Team Providers Care River Pilot Name Role Phone Crispin Shen MD Unavailable [phone] Encounter Details Date Type Department Care Team (Late st Contact Info) Description 03/07/2021 Orders Only [facility] Surgery [address] [facility] [address] [place] [address] [place] [address] Crispin Shen MD [address] [facility] [phone] [place] [address] Social History Tobacco Use Types Packs/Day Years [...] How often do you attend chur or jew services? 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 Gender Identity Female 11/16/2020 2:58 PM CDT Sexual Orientation Straight 11/16/2020 2: 58 PM CDT documented as of this encounter Plan of Treatment Not on file documented as of this encounter Visit Diagnoses Not on filedocumented in this encounter Discontinued Medications Medication Sig Discontinue Reason Start Date End Da te oxyCODONE (ROXICODONE) 5 mg immediate release tabletIndications:Pain Take 1 tablet (5 mg total) by mouth every 4 (four) hours as needed for pain for up to 5 doses Other 03/04/2021 03/07/2021 documented as of this encounter Care Teams River Pilot Relationship Specialty Start Date End Date Crispin Shen MD Surgeon Colon and Rectal Surgery 09/09/20 documented as of this encounter
--- OUTSIDE RECORDS SUMMARY | 2024-08-18 09:55 | XMS_ITS | Encounter Summary ---
Author Organization [facility] Healthcare Address [address] [place] [address] Care Team Providers Care Dry Clipper Tender Name Role Phone Crispin Shen MD Unavailable [phone] Encounter Details Date Type Department Care Team (Late st Contact Info) Description 01/21/2021 7:21 AM CDT Anesthesia Event [facility] [address] [place] [address] Dinora Cruz MD [address] [place] [address] Carolina Hilario NP [phone] [place] [address] Anesthesia Record Procedure Summary Procedure Name Responsible Anesthesiologist Anesthesia Start Time Anesthesia Stop Time PLACEMENT SETON (Anus) Dinora Cruz MD 01/21/21 0721 01/21/21 0754 Events Date Time Event Comment 01/21/2021 0707 0721 An Start 0721 An Start Data 0721 In Room 0726 Start Supplemental O2 0726 An Induction The patient was reevaluated immediately before moderate or deep sedation use and before anesthesia induction. 0726 Anesthesia Ready 0730 Proc Start 0730 Incision Start 0747 an stop data 0748 Proc Fin 0753 Out of Room 0754 An Stop 0754 Handoff to RN I completed my handoff [...] (cardiac) syringe 2 % 50 mg propofol 350 mg Lactated Ringer's (LR) infusion 0 mL * Agents Name O2 N2O Air * Blood No blood administrations on file. Lines, Drains, and Airways Type Details Placement Removal Peripheral IV Placement Date: 12/08; Placement Time: 646; Catheter Size: 20 G; Orientation: Right, Posterior; Location: Hand; Site Prep: Chlorhexidine; Inserted by: Jorge Arambula RN; Insertion Attempts: 1; Patient Tolerance: Tolerated well; Removal Date: 01/21/21; Removal Time: 75601/21/21646 by Andreia Arambula RN 01/21/21756 by Halima Perdue RN documented in this encounter Social History [...] often do you attend chur ch or rastafarian services? 1 to 4 times per year 11/24/2020 Do you belong to any clubs o r organizations such as anglican groups, unions, fraternal or athletic groups, or [...] money to buy more. 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 Gender Identity Female 11/16/2020 2:58 PM CDT Sexual Orientation Straight 11/16/2020 2: 58 PM CDT documented as of this encounter OR Notes * Anesthesia Postprocedure Evaluation - Dinora Cruz MD - 01/21/2021 8:18 AM CDT Patient: Belem Smith Procedure Summary Date: 01/21/21 Room / Location: [facility] OPERATING RO[facility] / [facility] Operating Room Anesthesia Start: 720 Anesthesia Stop: 753 Procedures: PLACEMENT SETON (N/A Anus) Incision And Drainage Abscess - Heidi-Rectal (N/A Anus) Diagnosis: Rectovaginal fistula (Rectovaginal fistula [N82.3]) Providers: Crispin Shen MD Responsible Provider: Dinora Cruz MD Anesthesia Type: MAC ASA Status: 1 Anesthesia Type: MAC Last vitals BP 119/64 Pulse 99 Temp 36.2 ??C (97.2 ??F) (Temporal) Resp 16 SpO2 97% Anesthesia Post Evaluation Patient location during evaluation: PACU Patient participation: complete - patient participated Level of consciousness: fully awake Pain management: satisfactory to patient Airway patency: adequate and patent Evidence of recall: no Cardiovascular status: acceptable and hemodynamically stable Respiratory status: acceptable Hydration status: acceptable Pt is: normothermic Nausea/Vomiting status: none No complications documented. * Anesthesia Preprocedure Evaluation - Dinora Cruz MD - 01/18/2021 6:08 PM CDT Images from the original note were not included. [facility] Preoperative Assessment and Planning Preoperative Evaluation Record Evaluation type/location: [facility] Planned procedure site: [facility] OR Date: 01/18/21 NOTE: This note represents a preoperative evaluation initiated via telephone interview. NO PHYSICALEXAM was performed at the time of initial assessment. A physical exam may be added to this note anddocumented below. Anesthesia Evaluation Belem Smith is a 50 y.o. female Procedure(s): EXAM UNDER ANESTHESIA - RECTUM Pre-Op Diagnosis Codes: * Rectovaginal fistula [N82.3] HISTORY HPI Pt is a 50 y.o. female with no significant PMH presenting for evaluation having EUA-- Rectum for follow up of anal fistula repair 11/24/2020. Past Medical History Neurological Pertinent negatives: seizures; neuromuscular disease; CVA/stroke; TIA; CEA; ICA stenosis; dementia/mild cognitive impairment and carotid artery stent Cardiovascular Pertinent negatives: hypertension ; CAD ; PA ; CABG ; valvular heart disease; valve replacement; atrial fibrillation; arrhythmia; pacemaker/ICD; PVD; DVT/PE; negative for CHF; drug-eluting stent(s); bare metal stent(s) and coronary angioplasty Respiratory Pertinent negatives: COPD; asthma; sleep apnea (CANDE); pulmonary hypertension; no O2 use outside thehospital and non-smoker Hepatic / Heme + History of anemia (Last H/H= 10.9/33.6 on 11/25/2020) Pertinent negatives: liver disease; history of thrombocytopenia and history of Kimmy positive Gastrointestinal Pertinent negatives: GERD and hiatal hernia Renal / Pertinent negatives: renal disease; dialysis and nephrolithiasis Musculoskeletal/Pain Pertinent negatives: chronic pain; chronic opioid use and previous treatment for opioid use disorder Endocrine / Other + Obesity (BMI >30) Pertinent negatives: diabetes mellitus; thyroid disease; cancer history; rheumatological disease and transplanted organ Infectious disease: 2nd dose of Alereon COVOutbox vaccine was in 10/2020. Functional Capacity Functional capacity: 4-6 METs Comments: Pt states able to walk 3-4 blocks or climb 2 flights of stairs without SOB/CP. Day of Surgery assessments + Possibility of assessed - ruled out by patient's provided history. Review of Systems + vision loss (Wears corrective glasses/contacts) Pertinent negatives: productive cough; wheezing; SOB; recent cold/flu; fever; chest pain; palpitations; orthopnea; pedal edema; PND; heavy menses; Sickle Cell disease/trait; previous transfusion; transfusion reaction; melena/hematochezia; easy bruising; bleeding problems; syncope; dizziness; muscleweakness; chronic pain; numbness/tingling; hard of hearing; heartburn; nausea; dysphagia; diarrhea;dentures/partials; chipped/loose teeth; abdominal pain; diaphoresis and no unexpected weight change PAT Summary and Plans Cardiac risk classification of planned procedure: low cardiac risk. Preoperative assessment status: complete pending laboratory results. Additional comments: Belem Smith is a 50 y.o. female who is being evaluated prior to undergoinga low cardiac risk surgery. Revised Cardiac Risk Index factors are (none) for a total RCRI of 0 outof 6. Functional capacity is 4-6 METs. Comorbidities include: obesity (BMI= 32) Obstructive sleep apnea (CANDE) screening status is STOP-Bang=1 suggesting low risk for CANDE. Blood bank needs for day of procedure: No type and screen needed CBC, BMP done 11/25/2020-- H/H= 10.9/33.6 Pending labs/tests include: COVID test pending-- Results to be reviewed by anesthesia and surgical teams prior to OR. Patient's COVID19 status is: Unexposed. The patient currently has no concerning symptoms of COVID19. Plan for pre-procedure COVID19 testing: Telephone assessment performed. Request placed for pre-procedure COVID19 testing to be performed on 01/19/2021 at [facility]. [facility] will place the order for testing. Result to be reviewed by surgeon's office. 2nd dose of Pfizer COVID vaccine was in 10/2020. This assessment was performed via telephone. Therefore the physical exam has been deferred to the day of surgery team. The patient was provided with preoperative instructions for their medications. The patient was instructed to shower/bathe the night prior and the morning of the planned procedure using an antibacterial soap. Patient instructions were provided electronically sent via [facility]. Patient verbalized understanding of preoperative plan. Pending labs to be reviewed by anesthesia and surgical teams prior to OR. TPAP assessment complete. Preoperative evaluation performed by Carolina Hilario NP on 01/18/21 at 6:09 PM. . Patient Active Problem List Diagnosis ??? Rectovaginal fistula Past Medical History: Diagnosis Date ??? Anxiety ??? Depression ??? Obesity Past Surgical History: Procedure Laterality Date ??? ABDOMINOPLASTY 2009 ??? APPENDECTOMY 1977 ??? COLONOSCOPY 2007 ??? COLOSTOMY 04/18/2020 ??? ENDOMETRIAL ABLATION 2010 ??? RECTAL EXAMINATION UNDER ANESTHESIA 12/29/2019 ??? RECTAL SURGERY 01/05/2020 Endorectal Advancement Flap ??? RECTAL SURGERY 04/14/2020 Bulbocavernosus Flap Closure of Rectovaginal Fistula ??? REVISION COLOSTOMY 11/24/2020 Gracillis flap repair of anal vaginal fistula and colostomy revision OB History No obstetric history on file. No Known Allergies Med List Status: Nurse Complete Set By: Kin Stratton RN at 01/18/2021 12:48 PM Taking? Last Dose Start Date End Date Provider ascorbic acid (VITAMIN C) 1,000 mg tablet 01/17/2021 -- -- Tyra Crawford MD cholecalciferol (VITAMIN D-3) 2000 unit capsule 01/17/2021 -- -- Tyra Crawford MD LORazepam (ATIVAN) 0.5 mg tablet Past Month 07/09/20 -- Tyra Crawford MD lysine 1,000 mg tablet 01/17/2021 -- -- Tyra Crawford MD mirtazapine (REMERON) 15 mg tablet 01/17/2021 08/24/20 -- Tyra Crawford MD multivitamin capsule 01/17/2021 -- -- Tyra Crawford MD omega-3 fatty acids-fish oil 300-1,000 mg capsule 01/17/2021 -- -- Tyra Crawford MD sertraline (ZOLOFT) 50 mg tablet 01/17/2021 11/16/20 -- Tyra Crawford MD sodium chloride (OCEAN) 0.65 % nasal spray Past Month -- -- Tyra Crawford MD turmeric root extract 500 mg capsule 01/17/2021 -- -- Tyra Crawford MD zinc 50 mg tablet 01/17/2021 -- -- Tyra Crawford MD No current facility-administered medications for this encounter. Current Outpatient Medications: ??? ascorbic acid (VITAMIN C) 1,000 mg tablet ??? cholecalciferol (VITAMIN D-3) 2000 unit capsule ??? LORazepam (ATIVAN) 0.5 mg tablet ??? lysine 1,000 mg tablet ??? mirtazapine (REMERON) 15 mg tablet ??? multivitamin capsule ??? omega-3 fatty acids-fish oil 300-1,000 mg capsule ??? sertraline (ZOLOFT) 50 mg tablet ??? sodium chloride (OCEAN) 0.65 % nasal spray ??? turmeric root extract 500 mg capsule ??? zinc 50 mg tablet Facility-Administered Medications Ordered in Other Encounters: ??? diatrizoate meglumine-diatrizoate sodium (GASTROGRAFIN/-GASTROVIEW) 66-10 % solution 60 mL, 60 mL, oral, Once in imaging Social History Tobacco Use Smoking Status Never Smoker Smokeless Tobacco Never Used Substance and Sexual Activity Alcohol Use Not Currently Substance and Sexual Activity Drug Use Not Currently Family History Problem Relation Age of Onset ??? Thyroid cancer Mother ??? Anesthesia problems Neg Hx PAT Physical Exam Additional comments: Telephone assessment has been performed and DOS physical exam will need to be performed by anesthesia provider. There were no vitals filed for this [...] for requested labs within last 720 hours. Sandeep index score: 100 DOS Physical Exam Medical history, medications, and allergies reviewed. Attestation: This PAT evaluation Airway Exam: Mallampati: II Cervical ROM: FROM Cardiovascular Exam: Rate: regular Rhythm: regular Pulmonary Exam: LCTA, bilat Anesthesia Plan ASA 1 My patient is approved for the Anesthesia Controlled Medication protocol when under care of a SALVAGE REPAIRER Planned anesthesia: MAC Induction: Induction: intravenous. Postoperative Plan: No plan for postoperative opioid use. No postoperative mechanical ventilation intended. Patient's planned disposition post procedure is Outpatient. Informed Consent: Discussed plan with SALVAGE REPAIRER. Anesthesia plan and risks discussed with patient. Consent and Attending signature: I and/or my designee have discussed the anesthesia plan, benefits, possible alternatives, parental presence at time of induction (if indicated), and clinically relevant risks that may include dental injury, unintentional awareness, and/or other complications. The patient and/or parent/legal guardian understand, and agree to proceed. All questions answered. Cosigned by Crispin Shen MD at 01/21/2021 7:18 AM CDT documented in this encounter Plan of Treatment Not on file documented as of this encounter Visit Diagnoses Not on filedocumented in this encounter Administered Medications Inactive Administered Medications - up to 3 most recent administrations Medication Order MAR Action Action Date Dose Rate Site Lactated Ringer's (LR) infusion 30 mL/hr, intravenous, Continuous, Starting on Sun01/21/21 at 0745, Pre-Op Rate/Dose Change 01/21/2021 7:26 AM CDT 30 m L/hr Rate/Dose Verify 01/21/2021 7:21 AM CDT 30 mL/h r New Bag 01/21/2021 7:17 AM CDT 30 mL/hr 30 mL/hr lidocaine (cardiac) (XYLOCAINE) preservative free injection intravenous, As needed, Starting on Sun01/21/21 at 0726, Anesthesia Intra-op, Indications: Ventricular ArrhythmiasIndications:Ventricular Arrhythmias Given 01/21/2021 7:26 AM CDT 50 mg propofoL (DIPRIVAN) 10 mg/mL IV intravenous, As needed, Starting on Sun01/21/21 at 0726, Anesthesia Intra-op Given 01/21/2021 7:44 AM CDT 50 mg Given 01/21/2021 7:39 AM CDT 50 mg Given 01/21/2021 7:35 AM CDT 50 mg documented in this encounter Care Teams Dry Clipper Tender Relationship Specialty Start Date End Date Crispin Shen MD Surgeon Colon and Rectal Surgery 09/09/20 documented as of this encounter
--- OUTSIDE RECORDS SUMMARY | 2024-08-18 09:55 | XMS_ITS | Encounter Summary ---
Author Organization [facility] Address [address] [place] [address] Phone Care Team Providers Care Marketing Officer Name Role Phone Crispin Shen MD Unavailable [phone] Reason for Visit * Reason Onset Date Comments external referral to [facility] 04/27/2021 Encounter Details Date Type Department Care Team (Late st Contact Info) Description 04/27/2021 Telephone [facility] Surgery [address] [facility] 8th [place] [address] [place] [address] Ana M Baig, A external referral to [facility] Social History Tobacco Use Types Packs/Day Years [...] on file 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 She finally gave me a fax number and advised me to submit everything with a cover letter stating we do not have access to online protal in hopes they will accept the request via fax. Request was faxed to [facility] at [phone] * Telephone Encounter - Ana M Baig RMA - 05/05/2021 2:42 PM CDT Update from our pre-arrival team: Yadi has reviewed patients insurance and stated patient will need to go through her PCP. Her PCP will need to submit a request to patient insurance for patient tosee this provider because they are outside her network coverage. When I spoke with patient yesterday she stated she was going to call her insurance and her PCP for follow up on referral. I have faxed all our records to PCP on 04/27/[address] this referral. * Telephone Encounter - Ana M Baig RMA - 05/04/2021 3:10 PM CDT Spoke with patient, she stated she has not received a call from [facility] or PCP Dr. Reynoso. She stated when she spoke with her insurance they stated it was denied because they require our office to submit the referral to them for approval. We did not submit the request [facility] did so they denied it as they are not a current treating provider. I have sent an e-mail to our pre-arrival team asking if they can assist with getting approval from insurance for patient to be referred to [facility]. * Telephone Encounter - Ana M Baig, ANGELINE - 04/27/2021 10:31 AM CDT Spoke with patients insurance, they stated they referral was denied for Dr. Schmitz because it needs to be submitted by patients PCP. I called patients PCP Dr. Reynoso's office and explained the situation and faxed them over all of 's progress and op notes. They are going to talk to Dr. Reynoso and see if they can submit a referral to [facility] for patient to see Dr. Kemi Schmitz. They will call me back with an update. * Telephone Encounter - Ana M Baig, ANGELINE - 04/27/2021 10:29 AM CDT ----- Message from Crispin Shen MD sent at 04/26/2021 2:16 PM CDT ----- She needs help on two fronts. First, we need to get prior authorization for her to go to [facility]. I have added another note outlining wide the [facility] is the only place that is feasible to send her. Also, she is having lots of problems with her work days. The [facility] statement that we sent her may not be adequate. She asked that someone call her to help us figure out how to make this work so that she does not lose her job. Sorry, I know this will be a lot of work. Thank you documented in this encounter Plan of Treatment Not on file documented as of this encounter Visit Diagnoses Not on filedocumented in this encounter Care Teams Marketing Officer Relationship Specialty Start Date End Date Crispin Shen MD Surgeon Colon and Rectal Surgery 09/09/20 documented as of this encounter
--- OUTSIDE RECORDS SUMMARY | 2024-08-18 09:55 | XMS_ITS | Encounter Summary ---
Author Organization [facility] Healthcare Address [address] [place] [address] Care Team Providers Care Peoplesoft Hcm Consultant Name Role Phone Crispin Shen MD Unavailable [phone] Encounter Details Date Type Department Care Team (Late st Contact Info) Description 03/04/2021 10:00 AM CDT - 03/04/2021 10:30 AM CDT Surgery [facility] Surgery at [facility] [address] [place] [address] Crispin Shen MD [address] [facility] [id number] [place] [address] ANAL FISTULA PLUG Surgery Details Date/Time Status Location OR Service Patient Class Case Cl ass Case Type Trauma Case? 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 Gender Identity Female 11/16/2020 2:58 PM CDT Sexual Orientation Straight 11/16/2020 2: 58 PM CDT documented as of this encounter Last Filed Vital Signs Vital Sign Reading Time Taken Comments Blood Pressure 100/60 03/04/2021 10:30 AM CDT Pulse 95 03/04/2021 10:30 AM CDT Temperature 36.1 ??C (97 ??F) 03/04/2021 10:30 AM CDT Respiratory Rate 19 03/04/2021 10:30 AM CDT Oxygen Saturation 95% 03/04/2021 10:30 AM CDT Inhaled Oxygen Concentration - - Weight 99.8 kg (220 lb) 02/23/2021 3:45 PM CDT Height 177.8 cm (5' 10 ) 02/23/2021 3:45 PM CDT Body Mass Index 31.57 02/23/2021 3:45 PM CDT documented in this encounter Discharge Instructions * Discharge Instructions* Horace Escoto MD - 03/04/2021 8:53 AM CDT .COLON AND RECTAL SURGERY Post-Operative Instructions for Outpatient Procedure Pain Some pain is to be expected after a procedure. We recommend alternating between Tylenol 1000mg OR Ibuprofen 600mg every 3 hours and using the prescribed narcotics for any breakthrough pain. Heat or ice may also be used to provide relief, but be careful not to burn yourself as this area is numb. Make sure to take pain medication with food. Sitz baths/warm tub soaks can be used 3 times daily or as needed. If prescribed Percocet, [place], Tylenol #3, or any agent containing acetaminophen [...] Office for All Questions and Concerns Office: [phone] (Sunday - Sunday, 8am to 4pm) Exchange: [phone] (after hours, holidays and weekends) * Attachments The following attachments cannot be sent through Care Everywhere. * [facility] PATHWAY TO EXCELLENT CARE AFTER SURGERY documented in this encounter Medications at Time of Discharge lysine 1,000 mg tablet Take 1,000 mg by mouth nightly turmeric root extract 500 mg capsule Take 500 mg by mouth nightly ascorbic acid (VITAMIN C) 1,000 mg tabletIndication s:Vitamin C Deficiency,suppl ement Take 1 tablet (1,000 mg total) by mouth nightly 4 cholecalciferol (VITAMIN D-3) 2000 unit capsuleIndicatio ns:Vitamin D Deficiency Take 1 capsule (2,000 Units total) by mouth nightly 4 LORazepam (ATIVAN) 0.5 mg tablet Take 1 tablet (0.5 mg total) by mouth 2 (two) times a day as needed for anxiety 07/09/2020 3 mirtazapine (REMERON) 15 mg tabletIndication s:depression Take 15 mg by mouth nightly 08/24/2020 2 multivitamin capsuleIndicatio ns:Vitamin Deficiency Prevention Take 1 capsule by mouth nightly 4 omega-3 fatty acids-fish oil 300-1,000 mg capsuleIndicatio ns:for supplement Take 1 capsule (1 g total) by mouth nightly 4 oxyCODONE (ROXICODONE) 5 mg immediate release tabletIndication s:Pain Take 1 tablet (5 mg total) by mouth every 4 (four) hours as needed for pain for up to 5 doses 5 tablet 03/04/2021 1 sertraline (ZOLOFT) 50 mg tabletIndication s:Anxiety with Depression Take 50 mg by mouth nightly 11/16/2020 2 sodium chloride (OCEAN) 0.65 % nasal spray Administer 1 spray into each nostril as needed for rhinitis 2 zinc 50 mg tabletIndication s:for supplement Take 50 mg by mouth nightly 4 documented as of this encounter Ordered Prescriptions Prescription Sig Dispense Quantity Refills Last Filled Start Date End Date oxyCODONE (ROXICODONE) 5 mg immediate release tabletIndications: Pain Take 1 tablet (5 mg total) by mouth every 4 (four) hours as needed for pain for up to 5 doses 5 tablet 03/04/2021 03/07/2021 documented in this encounter Discharge Disposition Disposition Code Departure Means Destination Discharge to home or self care documented in this encounter H&P Notes * Crispin Shen MD - 03/04/2021 9:27 AM CDT I have reviewed the H&P, examined the patient, and endorse the findings as written. Plan of Care : Based on the above findings, I consider Belem Smith to be an acceptable risk for: Procedure(s): ANAL FISTULA PLUG MUCUS FISTULA CLOSURE Source Note - Crispin Shen MD - 02/08/2021 8:30 AM [...] to do here. 02/08/2021 Crispin Shen MD * Horace Escoto MD - 03/04/2021 8:51 AM CDT I have reviewed the H&P, examined the patient, and endorse the findings as written. Plan of Care : Based on the above findings, I consider Belem Smith to be an acceptable risk for: Procedure(s): ANAL FISTULA PLUG MUCUS FISTULA CLOSURE .. Vitals: 02/23/21 1545 Weight: 99.8 kg (220 lb) Height: 177.8 cm (5' 10 ) Gen:NAD CV: RRR Pulm: Unlabored Abd: Soft, NT, ND Ext: WWP Cosigned by Crispin Shen MD at 03/04/2021 2:27 PM CDT Source Note - Kalie Sales NP - 02/24/2021 3:47 PM CDT Images from the original note were not included. Anesthesia Evaluation Belem Smith is a 50 y.o. female Procedure(s): ANAL FISTULA PLUG MUCUS FISTULA CLOSURE Pre-Op Diagnosis Codes: * Anal fistula [K60.3] HISTORY HPI 50 year old female with history of obesity and anal fistula, She is scheduled for anal fistula plug and mucous fistula closure with Dr. Shen. Past Medical History Information obtained from: patient and chart. Neurological Pertinent negatives: seizures; neuromuscular disease; CVA/stroke; TIA; CEA; ICA stenosis; dementia/mild cognitive impairment and carotid artery stent Cardiovascular Pertinent negatives: hypertension ; CAD ; [place] ; CABG ; valvular heart disease; valve replacement; atrial fibrillation; arrhythmia; pacemaker/ICD; PVD; DVT/PE; negative for CHF; drug-eluting stent(s); bare metal stent(s); coronary angioplasty and hyperlipidemia Respiratory Pertinent negatives: COPD; asthma; sleep apnea [...] chest pain; palpitations; orthopnea; pedal edema; PND; previous transfusion; melena/hematochezia; easy bruising; bleedingproblems; syncope and dizziness PAT Summary and Plans Cardiac risk classification [...] done 11/25/2020-- H/H= 10.9/33.6 Pending labs/tests include: none Patient's COVID19 status is: Unexposed. The patient currently has no concerning symptoms of COVID19. . Patient's COVID-19 vaccination status is Fully vaccinated. Documentation of vaccination status is available in the Epic Immunization tab. . Plan for pre-procedure COVID19 testing: Patient is fully vaccinated, asymptomatic, and not severely immunocompromised per the criteria in the [facility] Pre-Procedure COVID-19 Testing Update for Fully Vaccinated Patients. COVID-19 testing is not indicated. This assessment was performed via telephone. Therefore the physical exam has been deferred to the day of surgery team. The patient was provided with preoperative instructions for their medications. The patient was instructed to shower/bathe the night prior and the morning of the planned procedure using an antibacterial soap. Patient instructions were provided electronically sent via [employer]. Patient verbalized understanding of preoperative plan. TPAP assessment complete. Kalie Sales NP . Patient Active Problem List Diagnosis ??? Rectovaginal fistula ??? Anal fistula Past Medical History: Diagnosis Date ??? [...] Med List Status: Nurse Complete Set By: Leticia Wright at 02/23/2021 3:45 PM Taking? Last Dose Start Date End Date Provider ascorbic acid (VITAMIN C) 1,000 mg tablet 02/22/2021 -- -- Tyra Crawford MD cholecalciferol (VITAMIN D-3) 2000 unit capsule 02/22/2021 -- -- Tyra Crawford MD LORazepam (ATIVAN) 0.5 mg tablet Past Month 07/09/20 -- Tyra Crawford MD lysine 1,000 mg tablet 02/22/2021 -- -- Tyra Crawford MD mirtazapine (REMERON) 15 mg tablet 02/22/2021 08/24/20 -- Tyra Crawford MD multivitamin capsule 02/22/2021 -- -- Tyra Crawford MD omega-3 fatty acids-fish oil 300-1,000 mg capsule 02/22/2021 -- -- Tyra Crawford MD oxyCODONE (ROXICODONE) 5 mg immediate release tablet More than a month 01/21/21 -- Evelyn Dunn MD Take 1 tablet (5 mg total) by mouth every 4 (four) hours as needed for pain sertraline (ZOLOFT) 50 mg tablet 02/22/2021 11/16/20 -- Tyra Crawford MD sodium chloride (OCEAN) 0.65 % nasal spray Past Month -- -- Tyra Crawford MD turmeric root extract 500 mg capsule 02/22/2021 -- -- Tyra Crawford MD zinc 50 mg tablet 02/22/2021 -- -- Tyra Crawford MD No current [...] capsule ??? zinc 50 mg tablet ??? oxyCODONE (ROXICODONE) 5 mg immediate release tablet Facility-Administered Medications Ordered in Other Encounters: [...] last 720 hours. Sandeep index score: 100 documented in this encounter Miscellaneous Notes * Perioperative Nursing Note - Halima Perdue RN - 03/04/2021 10:48 AM CDT DISCHARGE INSTRUCTIONS GIVEN VERBALLY AND WRITTEN TO PERSON ACCOMPANYING AT DISCHARGE, INCLUDING CALL BACK INFORMATION IN CASE OF EMERGENCY. * Op Note - Crispin Shen MD - 03/04/2021 9:59 AM CDT SURGICAL TEAM: Surgeon(s) and Role: * Crispin Shen MD - Primary * Horace Escoto MD - Fellow ANESTHESIA: Monitor Anesthesia Care PREOPERATIVE DIAGNOSIS (ES): Anal fistula, mucous fistula overflow POSTOPERATIVE DIAGNOSIS (ES): Anal fistula, mucous fistula overflow NAME OF OPERATION: Exam anesthesia, anal fistula plug treatment of fistula. INDICATIONS FOR PROCEDURE: The patient is a 50 y.o. female with a history of and a no vaginal fistula who had a repair with a gracillis flap. She has developed a separate fistula to the perineum and is brought the operating room for fistula plug treatment. OPERATIVE FINDINGS: There was a small area of granulation tissue just inside the vaginal introitus. We probed it multiple times and there was no fistula. There was also the area where we had divided the distal rectal mucosa over a previous cavity. There was some granulation tissue there which we curetted out. We attempted multiple times to probe from the anal and vaginal side in order to demonstrate a fistula. We could not. We injected hydrogen peroxide in this cavity anteriorly and there was no peroxide in the vagina with a vaginal speculum. DESCRIPTION OF PROCEDURE: The patient was brought to the operating room and placed under MAC anesthesia in the prone gabriel-knife position. The area was anesthetized with 0.25% Marcaine. A vaginal speculum was placed in the vagina and it was inspected. There was this area that almost looked like a large tag of granulation tissue. We probed at the base the tag and found no indentation or tract. The tag was excised. We then pl aced the anoscope in the anal canal. We noted the above findings. There was no demonstrable fistulato the vagina. The only fistula that was present was the fistula to the perineum. A fistula plug was delivered through this tract and wedged into place. The wide into the fistula was secured with a 2-0 Vicryl suture with bites of anal derm and fistula plug. At the conclusion of this, the plug was covered by mucosa. The excess plug at the external opening was trimmed. ESTIMATED BLOOD LOSS: None INTRAOPERATIVE FLUIDS: See anesthesia record. SPONGE/INSTRUMENT/NEEDLE COUNTS: Correct times two. PRESENCE STATEMENT: I was present for the entire procedure as I have described above * Pre-Procedure Instructions - Kalie Sales NP - 02/24/2021 3:45 PM CDT Center for Preoperative Assessment and Planning CPAP Clinic Location: [facility] The night before your surgery: * Do not eat or drink anything after midnight. This includes candy, mint, gums, chewable antacids (TUMS, Rolaids) and cough drops * Do not smoke after midnight the night before surgery. It is best to stop smoking now to improve your health. The morning of your surgery: * You may brush your teeth and [...] on the day of surgery. * If having surgery at [facility], you may want to bring a credit card if you want to use our Mobile Pharmacy for your discharge medications. Mobile pharmacy is not available at [facility], the [facility], or the [place] [facility]. Outpatient Surgery: * You must have [...] Don't take on day of surgery ??? mirtazapine (REMERON) 15 mg tablet Don't take on day of surgery ??? multivitamin capsule Stop taking 1 week prior to surgery ??? omega-3 fatty acids-fish oil 300-1,000 mg capsule Don't take on day of surgery ??? sertraline (ZOLOFT) 50 mg tablet Take morning of surgery ??? sodium chloride (OCEAN) 0.65 % nasal spray Take on day of surgery if needed ??? turmeric root extract 500 mg capsule Stop taking 1 week prior to surgery ??? zinc 50 mg tablet Don't take on day of surgery ??? oxyCODONE (ROXICODONE) 5 mg immediate release tablet Take on day of surgery if [...] E, Herbal medicines, DietPills ?? If you take aspirin, do not stop taking it unless you were instructed to do so. ?? If you have pain, you may [...] bowel prep or special diet before surgery * Perioperative Nursing Note - Leticia Wright - 02/23/2021 3:57 PM CDT Center for Preoperative Assessment and Planning Perioperative Nursing Note Telephone Preoperative Evaluation ([facility]) - TELEPHONE ONLY, NO PHYSICAL EXAM Date: 02/23/21 Vitals: 02/23/21 1545 Weight: 99.8 kg (220 lb) Height: 177.8 cm (5' 10 ) CHEST CIRCUMFERENCE: Social History Tobacco Use Smoking Status Never Smoker Smokeless Tobacco Never Used Substance and Sexual Activity Drug Use Not Currently Alcohol Use How often do you have a drink containing alcohol?: Never How often do you have six or more drinks on one occasion?: Never Outpatient Medications Marked as Taking for the 03/04/21 encounter (Hospital Encounter) Medication Sig Dispense Refill [...] Take 1,000 mg by mouth nightly ??? mirtazapine (REMERON) 15 mg tablet Take 15 mg by mouth nightly ??? multivitamin capsule Take 1 capsule by mouth nightly ??? omega-3 fatty acids-fish oil 300-1,000 mg capsule Take 1 g by mouth nightly ??? sertraline (ZOLOFT) 50 mg tablet Take 50 mg by mouth nightly ??? sodium chloride (OCEAN) 0.65 % nasal spray Administer 1 spray into each nostril as needed for rhinitis ??? turmeric root extract 500 mg capsule Take 500 mg by mouth nightly ??? zinc 50 mg tablet Take 50 mg by mouth nightly Implants No active implants to display in this view. 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 Communication Needs: Contacts Assistive Devices/DME: Contacts Hearing - Right Ear: Functional Hearing - Left Ear: Functional Discharge Planning Type of Residence: Private residence Living Arrangements: Alone Support Systems: Spouse/significant other (fiance to be pile driver operator helper and caregiver) Patient expects to be discharged to:: Private residence COVID Screening Covid-19 Screening In the last 10 days have you had any new or worsening cough, SOB, fever (>=100F), body aches, loss of taste or smell, diarrhea or vomiting, or sore throat?: No Have you had close contact with anyone with confirmed or suspected COVID-19 in the past 2 weeks?: No Do you live in or work in a congregate living facility (ex. assisted living/usp facility, penitentiary, alf)?: No Have you tested positive for COVID-19 within the last 14 days?: No Have you previously tested positive [...] 20 seconds. Use an alcohol- based hand certified welder that contains at least 60% alcohol if soap and water are not available. ADDITIONAL COMMENTS/ FOLLOW UP * Pre-Procedure Instructions - Leticia Wright - 02/23/2021 3:56 PM CDT PRE-SURGICAL INSTRUCTIONS ??? General Information ?? Surgery location provided to patient. ?? Arrival time and surgical time will be provided by your surgeon. ?? Wear something clean, loose, comfortable and easy to get in and out of. ?? Leave your valuables and any jewelry at home (No metal or piercings are allowed in the operatingroom) ?? Bring your insurance card, a photo ID (like a Roofing Laborer's license) and a method of payment for any insurance copay, deductible, or copay for discharge medications. ?? Bring a complete, up to date list of all of your medications including any over the counter medications or supplements you may take. ? How To Prepare Your Skin For Surgery Antiseptic/antibacterial soap will decrease the amount of germs on your skin. It is important to minimize the risk of getting an infection by doing the following: ?? Change all the linens on the bed the night before surgery so you are sleeping on clean fresh sheets and pillowcases. ?? Shower the evening before and the morning of surgery with an antibacterial soap such as Dial or a surgical soap known as chlorhexidine (Hibiclens). You can purchase this soap at any pharmacy or department store or come by our CPAP clinic and we will give it to you free of charge. Do not use thissoap on your face or hair. ?? Wash your hair and face with your regular shampoo (no conditioners) and facial cleanser. ?? Take a shower using ?? cup (2 oz.) of antiseptic soap applied to a clean fresh washcloth. Scrub your entire body from the neck down. If you can't reach the surgical site, such as your back, have someone help you with your shower. Step out of the water and leave soap on your skin for 2 minutes prior to rinsing off. Rinse thoroughly and dry yourself off with a clean fresh dry towel. ?? Wear clean clothes or pajamas to sleep in and on morning of surgery. ?? Nothing extra on the skin or hair such as deodorant, makeup, hair products, lotions, powders, Vaseline, creams, or perfumes the evening before and the morning of surgery. ?? The morning of the surgery repeat the shower process with the remaining ?? cup (2 oz.) of surgical scrub using another fresh wash cloth and towel. ?? Do not shave the morning of surgery. ?? REMEMBER no deodorant, make-up, lotions, powders, creams, Vaseline, oils, conditioners or hair products the morning of the surgery. DONID TESTING PLAN COVID TEST not indicated related to COVID Vaccination status criteria met based on current [facility] Pre-Procedure COVID 19 Testing Update for Fully Vaccinated Patients. COVID Vaccination verified via COVID Vaccination Record Card or state registry. If you have COVID testing or should have COVID testing for your surgery/procedure, please read below section: If you need to reschedule your COVID test to a different location or if your surgery gets rescheduled, you MUST call [phone] Sunday-Sunday 8am-4:30pm to get your COVID testing rescheduled or your lab order will not be available at Testing Sites. COVID Testing is only valid for up to 96 hours prior to surgery date, unless otherwise specified. If you are unable to reach staff at the above phone number, please call the CPAP Staff at [phone]. This number cannot order a lab test, but can attempt to contact the above number/staff to assist you. We are available Sunday-Sunday 8am-4:30pm . We recommend you Self-Isolate after COVID Testing: Stay at home, if possible until your surgery date. Maintain a 6 foot distance from other people (social distancing). Avoid touching your eyes, nose and mouth with unwashed hands. Wash your hands often with soap and water for at least 20 seconds. Use an alcohol- based hand certified welder that contains at least 60% alcohol if soap and water are not available. All patients should read below section: All visitors/patients are being asked to wear a clean mask when entering the hospital. COVID 19 Updates & Visitor Policy: Please access [email or web address] for the most updated information. Information on [facility]: Please view [email or web address] (Patient & Visitor Information) for additional details regarding Advanced Directive forms, AWARE, directions, parking information, lodging, Internet access, dining and more. Information on [facility]: Please view [email or web address] (Patient and Visitor Information) for parking/directions and more. For MyChart information, to activate account or password recovery, please go to [email or web address] or call [phone] (toll-free: [phone]). Surgery Times: For patients having surgery @ [facility], [facility] or [facility], if your surgeon's office has not notified you of your surgery time by NOON THE BUSINESS DAY BEFORE your surgery, please call [phone] and ask for your surgeon'soffice documented in this encounter Plan of Treatment Not on file documented as of this encounter Procedures Procedure Name Priority Date/Time Associated Diagnosis Comments REMOVAL ANAL SETON 03/04/2021 9:53 AM CDT Anal fistula EXAM UNDER ANESTHESIA 03/04/2021 9:53 AM CDT Anal fistula REPAIR FISTULA - ANAL 03/04/2021 9:53 AM CDT Anal fistula documented in this encounter Visit Diagnoses Diagnosis Anal fistula- Primary Anal fistula documented in this encounter Admitting Diagnoses Diagnosis Anal fistula documented in this encounter Administered Medications Inactive Administered Medications - up to 3 most recent administrations Medication Order MAR Action Action Date Dose Rate Site acetaminophen (TYLENOL) tablet 1,000 mg 1,000 mg, oral, Once, On Sun03/04/21 at 0915, For 1 dose, Pre-Op, Indications: Pre-Emptive AnalgesiaIndications: Pre-Emptive Analgesia Given 03/04/2021 8:56 AM CDT 1,000 mg bacitracin-polymyxin B (POLYSPORIN) 500-10,000 unit/gram ointment tube As needed, Starting on Sun03/04/21 at 1000, Intra-Op Given 03/04/2021 10:00 AM CDT 1 application (deactivated) bupivacaine-EPINEPHri ne (MARCAINE with EPI) 0.25 %-1:200,000 preservative free injection As needed, Starting on Sun03/04/21 at 1000, Intra-Op Given 03/04/2021 10:00 AM CDT 20 mL ketorolac (TORADOL) injection 30 mg 30 mg, intravenous, Once, On Sun03/04/21 at 0915, For 1 dose, Pre-Op, For Adult IV push, administer over 15 seconds Given 03/04/2021 8:56 AM CDT 30 mg Lactated Ringer's (LR) infusion 30 mL/hr, intravenous, Continuous, Starting on Sun03/04/21 at 0915, Pre-Op Rate/Dose Change 03/04/2021 9:56 AM CDT 30 mL/hr Rate/Dose Verify 03/04/2021 9:53 AM CDT 30 mL/h r New Bag 03/04/2021 8:57 AM CDT 30 mL/hr 30 mL/hr sodium chloride 0.9% flush 0.5-20 mL 0.5-20 mL, intra-catheter, As needed, line care, Starting on Sun03/04/21 at 0842, Pre-Op, Flush volume based on line type and size. Flush before and after each use. sodium chloride 0.9% irrigation As needed, Starting on Sun03/04/21 at 1000, Intra-Op Given 03/04/2021 10:00 AM CDT 500 mL Surgical Site documented in this encounter Discontinued Medications Medication Sig Discontinue Reason Start Date End Da te oxyCODONE (ROXICODONE) 5 mg immediate release tabletIndications:Pain Take 1 tablet (5 mg total) by mouth every 4 (four) hours as needed for pain Stop Taking at Discharge 01/21/2021 03/04/2021 documented as of this encounter Active and Recently Administered Medications Times are shown in CDT. Scheduled Medication Order 03/02/2021 03/03/2021 03/04/2021 acetaminophen (TYLENOL) tablet 1,000 mg (COMPLETED) 1,000 mg, oral, Once, On Sun03/04/21 at 0915, For 1 dose, Pre-Op, Indications: Pre-Emptive Analgesia 0856 (Given - Provid er: Halima Perdue RN) ketorolac (TORADOL) injection 30 mg (COMPLETED) 30 mg, intravenous, Once, On Sun03/04/21 at 0915, For 1 dose, Pre-Op, For Adult IV push, administer over 15 seconds 0856 (Given - Provid er: Halima Perdue RN) Continuous Medication Order 03/02/2021 03/03/2021 03/04/2021 Lactated Ringer's (LR) infusion 30 mL/hr, intravenous, Continuous, Starting on Sun03/04/21 at 0915, Pre-Op 0857 (New Bag - Prov ider: Halima Perdue RN)0953 (Rate/Dose Verify - Provider: Kalie Sales NP)5087 (Rate/Dose Change - Provider: Monico Pitt CRNA)1041 (Stopped - Provider: Fabiana Irvin RN) PRN Medication Order 03/02/2021 03/03/2021 03/04/2021 bacitracin-polymyxin B (POLYSPORIN) 500-10,000 unit/gram ointment tube (CANCELED) As needed, Starting on Sun03/04/21 at 1000, Intra-Op 1000 (Given - Provid er: Crispin Shen MD) bupivacaine-EPINEPHrine (MARCAINE with EPI) 0.25 %-1:200,000 preservative free injection (CANCELED) As needed, Starting on Sun03/04/21 at 1000, Intra-Op 1000 (Given - Provid er: Crispin Shen MD) fentaNYL (SUBLIMAZE) preservative free syringe 25 mcg 25 mcg, intravenous, Every 10 min PRN, 1st line for pain, Starting on Sun03/04/21 at 1030, Phase I, Switch to 2nd line analgesic order if pain is uncontrolled or increasing after 2 doses. Notify Anesthesiologist if total PACU dose reaches 100 mcg and pain score 5/10 or more., Indications: Pain fentaNYL (SUBLIMAZE) preservative free syringe 50 mcg 50 mcg, intravenous, Every 10 min PRN, 2nd line for pain, Starting on Sun03/04/21 at 1030, Phase I, May administer 10 mintes after 2nd dose of 1st line analgesic agent for uncontrolled or increasing pain. Revert to 1st line dose if POSS of 3. Notify Anesthesiologist if total PACU dose reaches 100 mcg and pain score 5/10 or more., Indications: Pain lidocaine PF (XYLOCAINE) 10 mg/mL (1 %) preservative free injection 2-10 mg 2-10 mg (0.2-1 mL), other, Once as needed, pain with IV placement, Starting on Sun03/04/21 at 0842, For 1 dose, Pre-Op, Administer volume needed to infiltrate IV site. naloxone (NARCAN) 0.4 mg/mL injection 0.04-0.4 mg 0.04-0.4 mg, intravenous, Once as needed, other, excessive sedation/respiratory depression, Starting on Sun03/04/21 at 1030, For 1 dose, Phase I, Dilute 0.4 [...] Once as needed, nausea, vomiting, Starting on Sun03/04/21 at 1030, For 1 dose, Phase I, Proceed to prochlorperazine if ondansetron has been given within the last 6 hours. oxyCODONE (ROXICODONE) tablet 5 mg 5 mg, oral, Once as needed, 1st line for pain, Starting on Sun03/04/21 at 1030, For 1 dose, Phase I, When able to tolerate PO., Indications: Pain prochlorperazine (COMPAZINE) injection 5 mg 5 mg, intravenous, Once as needed, nausea, vomiting, Starting on Sun03/04/21 at 1030, For 2 doses, Phase I, If nausea/vomiting not relieved by ondansetron within 30 minutes or if ondansetron has been given within the last 6 hours. sodium chloride 0.9% flush 0.5-20 mL 0.5-20 mL, intra-catheter, As needed, line care, Starting on Sun03/04/21 at 0842, Pre-Op, Flush volume based on line type and size. Flush before and after each use. sodium chloride 0.9% irrigation (CANCELED) As needed, Starting on Sun03/04/21 at 1000, Intra-Op 1000 (Given - Provid er: Crispin Shen MD) documented in this encounter Orders Medications Ordered That Max ht Not Have Been Administered Count Last Ordered Date First Ordered Date fentaNYL (SUBLIMAZE) preserv ative free syringe 25 mcg 1 03/04/2021 fentaNYL (SUBLIMAZE) preserv ative free syringe 50 mcg 03/04/2021 lidocaine PF (XYLOCAINE) 10 mg/mL (1 %) preservative free injection 2-10 mg 03/04/2021 naloxone (NARCAN) 0.4 mg/mL injection 0.04-0.4 mg 1 03/04/2021 ondansetron (ZOFRAN) injection 4 mg 1 03/04 oxyCODONE (ROXICODONE) tablet 5 mg 1 2020 prochlorperazine (COMPAZINE) injection 5 mg 1 03/04/2021 sodium chloride 0.9% flush 0.5-20 mL 1 02/17 Diet Count Last Ordered Date First Orde red Date ADULT DISCHARGE DIET 1 03/04/2021 Nursing Count Last Ordered Date First Orde red Date DISCHARGE ACTIVITY 1 03/04/2021 DISCHARGE CALL PROVIDER 03/04/2021 documented in this encounter Care Teams Peoplesoft Hcm Consultant Relationship Specialty Start Date End Date Crispin Shen MD Surgeon Colon and Rectal Surgery 09/09/20 documented as of this encounter
--- OUTSIDE RECORDS SUMMARY | 2024-08-18 09:55 | XMS_ITS | Encounter Summary ---
Author Organization [facility] Address [address] [place] [address] Phone Care Team Providers Care Environmental Protection Inspector Name Role Phone Crispin Shen MD Unavailable [phone] Kemi Schmitz Unavailable Encounter Details Date Type Department Care Team (Late st Contact Info) Description 02/15/2022 Telephone [facility] Department of Surgery, Section of Colon and Rectal Surgery [address] [facility], [place]) Advanced Medicine [address]th Floor, [place] [address] Margot Ceballos, B.A. Social History Tobacco Use Types Packs/Day Years [...] you attend [facility] or judaism services? 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 - 02/15/2022 10:28 AM CDT error documented in this encounter Plan of Treatment Not on file documented as of this encounter Visit Diagnoses Not on filedocumented in this encounter Care Teams Environmental Protection Inspector Relationship Specialty Start Date End Date Crispin Shen MD Surgeon Colon and Rectal Surgery 09/09/20 Kemi Schmitz [address] [place] [address] Surgeon Colon and Rectal Surgery 05/16/21 documented as of this encounter
--- OUTSIDE RECORDS SUMMARY | 2024-08-18 09:55 | XMS_ITS | Encounter Summary ---
Author Organization [facility] Address [address] [place] [address] Phone Care Team Providers Care Adjustment Clerk Name Role Phone Crispin Shen MD Unavailable [phone] Kemi Schmitz Unavailable Encounter Details Date Type Department Care Team (Late st Contact Info) Description 12/06/2021 Telephone [facility] Department of Surgery, Section of Colon and Rectal Surgery [address] [facility] Advanced Medicine [address]th [address], [place] [address] Kaitlyn Krause Social History Tobacco Use Types Packs/Day Years [...] How often do you attend chur or rastafarian services? 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 Schmitz at [facility]. They needed our most recent office note. I faxed this from the chart to [phone] jorge Cleveland with reference number [id number] * Telephone Encounter - Kaitlyn Krause - 12/06/2021 11:51 AM CDT Mishaun from [facility]'s financial counseling office for Dr. Kemi Schmitz called asking for our office to initiate a new [facility] referral to Dr. Schmitz as the one they have has . I explained that as a specialty office we are not able to do this. They need to reach out to the patient's PCP for this. I confirmed the PCP information with her. documented in this encounter Plan of Treatment Not on file documented as of this encounter Visit Diagnoses Not on filedocumented in this encounter Care Teams Adjustment Clerk Relationship Specialty Start Date End Date Crispin Shen MD Surgeon Colon and Rectal Surgery 09/09/20 Kemi Schmitz [address] [place] [address] Surgeon Colon and Rectal Surgery 05/16/21 documented as of this encounter
--- OUTSIDE RECORDS SUMMARY | 2024-08-18 09:55 | XMS_ITS | Encounter Summary ---
Author Organization [facility] Address [address] [place] [address] Care Team Providers Care Auto Engine Mechanic Name Role Phone Crispin Shen MD Unavailable [phone] Encounter Details Date Type Department Care Team (Late st Contact Info) Description 03/04/2021 9:53 AM CDT Anesthesia Event [facility] at [facility] [address] [place] [address] Anjel Willson MD [address] [place] [address] Kalie Sales, H[place] [phone] [place] [address] Anesthesia Record Procedure Summary Procedure Name Responsible Anesthesiologist Anesthesia Start Time Anesthesia Stop Time ANAL FISTULA PLUG (Anus) Anjel Willson MD 03/04/21 0953 03/04/21 1026 Events Date Time Event Comment 03/04/2021 0905 0953 An Start 0953 In Room 0953 An Start Data 0956 Start Supplemental O2 0956 An Induction The patient was reevaluated immediately before moderate or deep sedation use and before anesthesia induction. 0956 Anesthesia Ready 0959 Proc Start 0959 Incision Start 1021 an stop data 1022 Proc Fin 1023 Out of Room 1026 An Stop 1026 Handoff to RN I completed my handoff [...] disposition at the time of handoff: PACU 1052 Release from care Meds Name Total lidocaine (cardiac) syringe 2 % 50 mg propofol 100 mg Lactated Ringer's (LR) infusion 0 mL * Agents Name O2 N2O Air * Blood No blood administrations on file. Lines, Drains, and Airways Type Details Placement Removal RETIRED Surgical Site 01/21/21; 0826; Perineum; no pain or drainage per patient, all Healed ; 05/14/23; 0706; Removal date unknown/not present on admission 01/21/21 0826 by Halima Perdue RN 05/14/23 0706 by Fabiana Irvin RN Peripheral IV Placement Date: 03/04/21; Placement Time: 0855; Catheter Size: 22 G; Orientation: Left; Location: Wrist; Technique: Anatomical landmarks; Removal Date: 03/04/21; Removal Time: 1105 03/04/21 0855 by Halima Perdue RN 03/04/21 1105 by Halima Perdue RN RETIRED Surgical Site 03/04/21; 1001; Heidi-anal; 05/14/23; 0705; Removal date unknown/not present on admission 03/04/21 1001 by Jamila Nunez RN 05/14/23 0705 by Fabiana Irvin RN documented in this [...] on file 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 Gender Identity Female 11/16/2020 2:58 PM CDT Sexual Orientation Straight 11/16/2020 2: 58 PM CDT documented as of this encounter OR Notes * Anesthesia Postprocedure Evaluation - Anjel Willson MD - 03/04/2021 10:50 AM CDT Patient: Belem Smith Procedure Summary Date: 03/04/21 Room / Location: [facility] OPERATING ROOM 02 / [facility] Operating Room Anesthesia Start: 952 Anesthesia Stop: 1025 Procedures: ANAL FISTULA PLUG (N/A Anus) MUCUS FISTULA CLOSURE (N/A ) Removal Anal Seton (N/A ) Diagnosis: Anal fistula (Anal fistula [K60.3]) Providers: Crispin Shen MD Responsible Provider: Anjel Willson MD Anesthesia Type: MAC ASA Status: 2 Anesthesia Type: MAC Last vitals BP 100/60 Pulse 95 Temp 36.1 ??C (97 ??F) (Temporal) Resp 19 SpO2 95% Anesthesia Post Evaluation Patient location during evaluation: PACU Patient participation: complete - patient participated Level of consciousness: fully awake Pain management: satisfactory to patient Airway patency: adequate and patent Evidence of recall: no Cardiovascular status: acceptable and hemodynamically stable Respiratory status: acceptable and room air Hydration status: acceptable Pt is: normothermic Nausea/Vomiting status: none Comments: Patient to return home after d/w Dr Shen. There were no known complications for this encounter. * Anesthesia Preprocedure Evaluation - Anjel Willson MD - 02/24/2021 3:47 PM CDT Images from [...] severely immunocompromised per the criteria in the [facility] Pre-Procedure COVID-19 Testing Update for Fully [...] Patient instructions were provided electronically sent via GBS. Patient verbalized understanding of preoperative plan. TPAP [...] LORazepam (ATIVAN) 0.5 mg tablet Past Month 11/20/20 -- Tyra Crawford MD lysine 1,000 mg tablet 02/22/2021 -- -- Tyra Crawford MD mirtazapine (REMERON) 15 mg tablet 02/22/2021 08/24/20 -- Tyra Crawford MD multivitamin capsule 02/22/2021 -- -- Tyra Crawford MD omega-3 fatty acids-fish oil 300-1,000 mg capsule 02/22/2021 -- -- Tyra rCawford MD oxyCODONE (ROXICODONE) 5 mg immediate release [...] Mallampati: I Cervical ROM: FROM TM distance: >4 (MP I with phonation) Cardiovascular Exam: Rate: regular Rhythm: regular Negative for Murmur Pulmonary Exam: LCTA, bilat EENT Exam: trachea midline Current state: Patient's current state is cooperative and interactive. Anesthesia Plan ASA 2 My patient is approved for the Anesthesia Controlled Medication protocol when under care of a INJECTION MOLDING MACHINE TENDER Planned anesthesia: MAC Induction: Induction: intravenous. Postoperative Plan: Postoperative administration opioids intended. No postoperative mechanical ventilation intended. Patient's planned disposition post procedure is Outpatient. Informed Consent: Anesthesia plan and risks discussed with patient. Plan and Consent Comments: Confirmation of comfort in prone or lithotomy position prior to initiation of IV propofol to level of moderate to deep sedation. Local by surgical team. Consent and Attending signature: I and/or my [...] 8:57 AM CDT 30 mL/hr 30 mL/hr lidocaine (cardiac) (XYLOCAINE) preservative free injection intravenous, As needed, Starting on Sun03/04/21 at 0956, Anesthesia Intra-op, Indications: Ventricular ArrhythmiasIndications:Ventricular Arrhythmias Given 03/04/2021 9:56 AM CDT 50 mg propofoL (DIPRIVAN) 10 mg/mL IV intravenous, As needed, Starting on Sun03/04/21 at 0956, Anesthesia Intra-op Given 03/04/2021 9:56 AM CDT 100 mg documented in this encounter Care Teams Auto Engine Mechanic Relationship Specialty Start Date End Date Crispin Shen MD Surgeon Colon and Rectal Surgery 09/09/20 documented as of this encounter
--- OUTSIDE RECORDS SUMMARY | 2024-08-18 09:55 | XMS_ITS | Encounter Summary ---
Author Organization [facility] Healthcare Address [address] [place] [address] Care Team Providers Care Manager Cosmetics Name Role Phone Crispin Shen MD Unavailable [phone] Encounter Details Date Type Department Care Team (Latest Contact Info) Description 01/21/2021 6:03 AM CDT - 01/21/2021 8:27 AM CDT Hospital Encounter [facility] [address] [place] [address] Crispin Shen MD [address] [facility] [phone] [place] [address] Rectovaginal fistula (Primary Dx) Discharge Disposition: Discharge to home or self [...] often do you attend chur ch or catholic services? 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 Gender Identity Female 11/16/2020 2:58 PM CDT Sexual Orientation Straight 11/16/2020 2: 58 PM CDT documented as of this encounter Last Filed Vital Signs Vital Sign Reading Time Taken Comments Blood Pressure 107/66 01/21/2021 8:00 AM CDT Pulse 95 01/21/2021 8:05 AM CDT Temperature 36.2 ??C (97.2 ??F) 01/21/2021 7:55 AM CD T Respiratory Rate 15 01/21/2021 8:05 AM CDT Oxygen Saturation 98% 01/21/2021 8:05 AM CDT Inhaled Oxygen Concentration - - Weight 99.8 kg (220 lb) 01/18/2021 12:55 PM CDT Height 177.8 cm (5' 10 ) 01/18/2021 12:55 PM CDT Body Mass Index 31.57 01/18/2021 12:55 PM CDT documented in this encounter Discharge Diagnoses Diagnosis Vesicovaginal fistula - VESICOVAGINAL FISTULA Urinary-genital tract fistula, female Obesity, unspecified - OBESITY, UNSPECIFIED Body mass index (BMI) 31.0-31.9, adult - BODY MASS INDEX [BMI] 31.0-31.9, ADULT documented in this encounter Discharge Instructions * Discharge Instructions* Evelyn Dunn MD - 01/21/2021 7:54 AM CDT 1. You may experience minor bleeding from the surgery site. This will get better over the next few days 2. For pain control, you may use over the counter tylenol or ibuprofen, in addition to the Oxycodone narcotic pain medication that you were prescribed. 3. You have a seton in place (it looks like a red rubber band). This will help the tract heal around it and prevent recurrence of the abscess. * Attachments The following attachments cannot be sent through Care Everywhere. * [facility] AFTER SURGERY documented [...] 4 (four) hours as needed for pain 10 tablet 01/21/2021 1 sertraline (ZOLOFT) 50 mg tabletIndication s:Anxiety [...] 4 (four) hours as needed for pain 10 tablet 01/21/2021 03/04/2021 documented in this encounter Discharge Disposition Disposition Code Departure Means Destination Discharge to home or self care documented in this encounter H&P Notes * Crispin Shen MD - 01/21/2021 7:19 AM CDT I have reviewed the H&P, examined the patient, and endorse the findings as written. Plan of Care : Based on the above findings, I consider Belem Smith to be an acceptable risk for: Procedure(s): EXAM UNDER ANESTHESIA - RECTUM Source Note - Crispin Shen MD - 01/18/2021 8:00 AM CDT Colorectal Post-operative Visit Patient ID: Belem Smith is a 50 y.o. female who is diverted who has an anovaginal fistula. There was still having some drainage. She does not have any pain. They are becoming frustrated. She is diverted. Physical Exam: The wound actually looks pretty good. There was one tunnel off to the right posterior aspect of theperineal wound. I probed it today in the probe did not pass deeply but only superficially. The wound extends into the vagina. There was no obvious feculent drainage. Assessment and Plan: Ms. Smith has a slowly healing perineal wound after a repair. I need to make sure her fistula hasnot recurred. We are going to arrange for her to have an exam under anesthesia. I told him I might need open things up or place a drain. It will depend on what we find. We will arrange that for the near future. 01/18/2021 Crispin Shen MD documented in this encounter Miscellaneous Notes * Perioperative Nursing Note - Halima Perdue RN - 01/21/2021 8:27 AM CDT DISCHARGE INSTRUCTIONS GIVEN VERBALLY AND WRITTEN TO PERSON ACCOMPANYING AT DISCHARGE, INCLUDING CALL BACK INFORMATION IN CASE OF EMERGENCY. * Op Note - Crispin Shen MD - 01/21/2021 7:30 AM CDT SURGICAL TEAM Surgeon(s) and Role: * Crispin Shen MD - Primary * Evelyn Dunn MD - Fellow ANESTHESIA: Monitor Anesthesia Care PREOPERATIVE DIAGNOSIS (ES): History of anovaginal fistula status post gracillis flap repair POSTOPERATIVE DIAGNOSIS (ES): Anovaginal fistula NAME OF OPERATION: Exam under anesthesia, unroofing of abscess cavity, seton placement INDICATIONS FOR PROCEDURE: The patient is a 50 y.o. female with a history of an anal vaginal fistula. She had a recent gracillis flap repair and has continued drainage. She is diverted. She is brought to the operating room forevaluation. FINDINGS: There was a very distal anal vaginal fistula. There was the tract running submucosally down to the old internal opening. The gracillis muscle flap was in the appropriate place the rectovaginal septum. The fistula was distal to the gracillis muscle. DESCRIPTION OF PROCEDURE: The patient was brought the operating room, placed under MAC anesthesia in the prone gabriel-knife position. The perineum was prepped and draped in normal sterile fashion and anesthetized with 40 mL of 0.25% Marcaine. A detailed digital rectal exam was performed which felt normal. A bimanual exam confirmed that the gracillis flap was in the appropriate place. With bimanual palpation, we could extrude some pus from the anus. We eventually were able to find a distal anal vaginal fistula. There was still a moderate amount of anterior sphincter muscle involved in this. Initially, our plan was to curette out this fistula tract and then place a fistula plug. After we prepared the tract for the plug with debridement of the fistula tract, we noticed that there was still purulence being extruded from the internal opening. We passed a probe through the internal opening again and it passed proximally through the anal canal tothe site of the previous fistula opening. At this point, we aborted the plans a fistula plug. The anoderm was incised over this cavity. A loose vessel loop seton was placed through the fistula tract. The plan will be to return in 6 weeks for a fistula plug under diversion. Estimated Blood Loss: None IV Fluids: See Anesthesia records Sponge, Instrument and Needle counts: Correct times two Presence statement: I was present for the entire procedure from start to finish * Pre-Procedure Instructions - Carolina Hilario NP - 01/18/2021 6:16 PM CDT Center for Preoperative Assessment and Planning CPAP Clinic Location: [facility] The night before your surgery: [...] rinse your mouth out. * Do not wear jewelry, body piercings, makeup, hairpins, false eyelashes or contact lenses to the hospital. * Leave any valuables at home or with your family. * If having surgery at [facility], you may want to bring a credit card if you want to use our Mobile Pharmacy for your discharge medications. Mobile pharmacy is not available at [facility], the [facility], or the [facility]. If you have been told to drink Gatorade or Clear Fast before your surgery: * Drink only clear liquids on the day of your surgery. DO NOT eat anything on the day of your surgery. * Your surgeon will tell you to drink Gatorade or Clear Fast on the day of your surgery. They will also tell you how much you can drink. The usual amount is two 12 ounce bottles (24 ounces total). Ifyou have diabetes you should drink a reduced sugar drink. * You need to stop drinking the Gatorade or Clear Fast at least 2 hours before your surgery. Your surgeon will tell you exactly what time you need to stop. Outpatient Surgery: * You must have a [...] ascorbic acid (VITAMIN C) 1,000 mg tablet Stop taking 1 week prior to surgery ??? cholecalciferol (VITAMIN D-3) 2000 unit capsule Stop taking 1 week prior to surgery ??? LORazepam (ATIVAN) 0.5 mg tablet Take on day of surgery if needed ??? lysine 1,000 mg tablet Stop taking 1 week prior to surgery ??? mirtazapine (REMERON) 15 mg tablet Take night before surgery as usual ??? multivitamin capsule Stop taking 1 week prior to surgery ??? omega-3 fatty acids-fish oil 300-1,000 mg capsule Stop taking 1 week prior to surgery ??? sertraline (ZOLOFT) 50 mg tablet Take morning of surgery ??? sodium chloride (OCEAN) 0.65 % nasal spray Take on day of surgery if needed ??? turmeric root extract 500 mg capsule Stop taking 1 week prior to surgery ??? zinc 50 mg tablet Stop taking 1 week prior to surgery General Instructions For Medications: ?? For medications that you are instructed to [...] before surgery * Perioperative Nursing Note - Kin Stratton RN - 01/18/2021 1:01 PM CDT Center for Preoperative Assessment and Planning Perioperative Nursing Note Telephone Preoperative Evaluation (CAM-SC) - TELEPHONE ONLY, NO PHYSICAL EXAM Date: 01/18/21 Vitals: 01/18/21 1255 Weight: 99.8 kg (220 lb) Height: 177.8 cm (5' 10 ) CHEST CIRCUMFERENCE: NA Social History Tobacco Use Smoking Status Never Smoker Smokeless Tobacco Never Used Substance and Sexual Activity Drug Use Not Currently Alcohol Use How often do you have a drink containing alcohol?: Never How often do you have six or more drinks on one occasion?: Never Outpatient Medications Marked as Taking for the 01/21/21 encounter (Hospital Encounter) Medication Sig Dispense Refill [...] Yes Wound (LDAs) Type of Wound (LDA): (denies) SCREENINGS Sandeep index score: 100 NUTRITION PATIENT CARE PLANNING Advance Directives (For Healthcare) Have you reviewed your Advance Directive and is it valid for this stay?: Yes Advance Directive: Patient has advance directive, copy not in chart Advance Directive not in Chart: Copy requested from family Information Provided on Healthcare Directives: No Pre-existing DNR/DNI Order: No Patient Requests Assistance: No Communication/Geoscience Specialist Needs Communication Needs: Contacts Assistive Devices/DME: Contacts Hearing - Right Ear: Functional Hearing - Left Ear: Functional Discharge Planning Type of Residence: Private residence Living Arrangements: Alone Support Systems: Family members Assistance Needed: Daughter to drive her and help care for her after surgery. Patient expects to be discharged to:: Private [...] in a congregate living facility (ex. assisted living/custodial facility, alf, fdc)?: No Have you tested positive for COVID-19 [...] 20 seconds. Use an alcohol- based hand wafer fabrication technician that contains at least 60% alcohol if soap and water are not available. ADDITIONAL COMMENTS/ FOLLOW UP * Pre-Procedure Instructions - Kin Stratton RN - 01/18/2021 1:00 PM CDT PRE-SURGICAL INSTRUCTIONS ??? General Information [...] insurance card, a photo ID (like a [employer] Installation Crew Member's license) and a method of payment for [...] hair products the morning of the surgery. COVID TESTING PLAN COVID Test Request Placed in Epic to [facility]. Test to be performed on 01/19 at [facility] ([facility] [address] [place] [address] [place] [address] (Outpatient Lab), M-F 7a-4p, Sat 7a-12p. HOLIDAYhours may vary. If you have COVID testing or should have COVID testing for your surgery/procedure, please read below section: If you need to reschedule your COVID test to a different location or if your surgery gets rescheduled, you MUST call [phone] Sunday-Sunday 8am-4:30pm to get your COVID testing rescheduled or your lab order will not be available at Testing Sites. COVID Testing is only valid for up to 96 hours prior to surgery date, unless otherwise specified. If you are unable to reach staff at the above phone number, please call the CPAP Staff at [phone]. This number cannot order a lab test, [...] 20 seconds. Use an alcohol- based hand wafer fabrication technician that contains at least 60% alcohol if soap and water are not available. All patients should read below section: All visitors/patients are being asked to wear a clean mask when entering the hospital. COVID 19 Updates & Visitor Policy: Please access [email or web address] for the most updated information. Information on [facility]: Please view [email or web address] (Patient & Visitor Information) for additional details regarding Advanced Directive forms, AWARE, directions, parking information, lodging, Internet access, dining and more. Information on [facility]: Please view [email or web address] (Patient and Visitor Information) for parking/directions and more. For MyChart information, to activate account or password recovery, please go to [email or web address] or call [phone] (toll-free: [phone]). Surgery Times: For patients having surgery @ [facility] or [facility], if your surgeon's office has not notified you of your surgery time by NOON THE BUSINESS DAY BEFORE your surgery, please call [phone] and ask for your surgeon'di Shen. For patients having [facility] @ [facility], if your surgeon's office has not notified you of your surgery time by NOON THE BUSINESS DAY BEFORE your surgery, please call the surgery center [phone]. documented in this encounter Plan of Treatment Not on file documented as of this encounter Procedures Procedure Name Priority Date/Time Associated Diagnosis Comments INCISION AND DRAINAGE ABSCESS - KAITLIN-RECTAL 01/21/2021 7:21 AM CDT Rectovaginal fistula PLACEMENT SETON 01/21/2021 7:21 AM CDT Rectovaginal fistula documented in this encounter Visit Diagnoses Diagnosis Rectovaginal fistula- Primary Digestive-genital tract fistula, female Rectovaginal fistula Digestive-genital tract fistula, female documented in this encounter Admitting Diagnoses Diagnosis Rectovaginal fistula Digestive-genital tract fistula, female documented in this encounter Administered Medications Inactive Administered Medications - up to 3 most recent administrations Medication Order MAR Action Action Date Dose Rate Site acetaminophen (TYLENOL) tablet 1,000 mg 1,000 mg, oral, Once, On Sun01/21/21 at 0745, For 1 dose, Pre-Op, Indications: Pre-Emptive AnalgesiaIndications:Pre-E mptive Analgesia Given 01/21/2021 7:17 AM CDT 1,000 mg HYDROcodone-acetaminophen (NORCO) 5-325 mg per tablet 1 tablet 1 tablet, oral, Once as needed, 1st line for pain, Starting on Sun01/21/21 at 0804, For 1 dose, Phase I, When able to tolerate PO. May repeat in 1 hour if pain is uncontrolled or increasing after 1st dose., Indications: PainIndications:Pain Given 01/21/2021 8:15 AM CDT 1 tablet Lactated Ringer's (LR) infusion 30 mL/hr, intravenous, Continuous, Starting on Sun01/21/21 at 0745, Pre-Op Rate/Dose Change 01/21/2021 7:26 AM CDT 30 mL/hr Rate/Dose Verify 01/21/2021 7:21 AM CDT 30 mL/h r New Bag 01/21/2021 7:17 AM CDT 30 mL/hr 30 mL/hr documented in this encounter Discontinued Medications Medication Sig Discontinue Reason Start Date End Da te sertraline (ZOLOFT) 25 mg tabletIndications:Dario perrin Take 25 mg by mouth every morning Error 07/09/2020 01/18/2021 documented as of this encounter Active and Recently Administered Medications Times are shown in CDT. Scheduled Medication Order 01/19/2021 01/20/2021 01/21/2021 acetaminophen (TYLENOL) tablet 1,000 mg (COMPLETED) 1,000 mg, oral, Once, On Sun01/21/21 at 0745, For 1 dose, Pre-Op, Indications: Pre-Emptive Analgesia 0717 (Given - Provid er: Andreia Arambula RN) Continuous Medication Order 01/19/2021 01/20/2021 01/21/2021 Lactated Ringer's (LR) infusion 30 mL/hr, intravenous, Continuous, Starting on Sun01/21/21 at 0745, Pre-Op 0717 (New Bag - Prov ider: Andreia Arambula RN)0721 (Rate/Dose Verify - Provider: Dinora Cruz MD)0726 (Rate/Dose Change - Provider: Monico Pitt CRNA) PRN Medication Order 01/19/2021 01/20/2021 01/21/2021 bupivacaine-EPINEPHrine (MARCAINE with EPI) 0.25 %-1:200,000 preservative free injection (CANCELED) As needed, Starting on Sun01/21/21 at 0641, Intra-Op 0641 (Given - Provid er: Crispin Shen MD) fentaNYL (SUBLIMAZE) preservative free syringe 50 mcg 50 mcg, intravenous, Once as needed, uncontrolled pain on PACU admission, Starting on Sun01/21/21 at 0804, For 1 dose, Phase I, Then proceed to PACU 1st line analgesic., Indications: Pain HYDROcodone-acetaminophen (NORCO) 5-325 mg per tablet 1 tablet (COMPLETED) 1 tablet, oral, Once as needed, 1st line for pain, Starting on Sun01/21/21 at 0804, For 1 dose, Phase I, When able to tolerate PO. May repeat in 1 hour if pain is uncontrolled or increasing after 1st dose., Indications: Pain 0815 (Given - Provid er: Halima Perdue RN - Comment: long commute home) lidocaine PF (XYLOCAINE) 10 mg/mL (1 %) preservative free injection 2-10 mg 2-10 mg (0.2-1 mL), other, Once as needed, pain with IV placement, Starting on Sun01/21/21 at 0711, For 1 dose, Pre-Op, Administer volume needed to infiltrate IV site. naloxone (NARCAN) 0.4 mg/mL injection 0.04-0.4 mg 0.04-0.4 mg, intravenous, Once as needed, other, excessive sedation/respiratory depression, Starting on Sun01/21/21 at 0804, For 1 dose, Phase I, Dilute 0.4 [...] Once as needed, nausea, vomiting, Starting on Sun01/21/21 at 0804, For 1 dose, Phase I, Proceed to prochlorperazine if ondansetron has been given within the last 6 hours. prochlorperazine (COMPAZINE) injection 10 mg 10 mg, intravenous, Once as needed, nausea, vomiting, Starting on Sun01/21/21 at 0804, For 1 dose, Phase I, If nausea/vomiting not relieved by ondansetron within 30 minutes or if ondansetron has been given within the last 6 hours. sodium chloride 0.9% flush 0.5-20 mL 0.5-20 mL, intra-catheter, As needed, line care, Starting on Sun01/21/21 at 0711, Pre-Op, Flush volume based on line type and size. Flush before and after each use. , Indications: Flushing sodium chloride 0.9% irrigation (CANCELED) As needed, Starting on Sun01/21/21 at 0641, Intra-Op 0641 (Given - Provid er: Crispin Shen MD) sterile water irrigation (CANCELED) As needed, Starting on Sun01/21/21 at 0730, Intra-Op 0730 (Given - Provid er: Crispin Shen MD) documented in this encounter Orders Medications Ordered That Max ht Not Have Been Administered Count Last Ordered Date First Ordered Date bupivacaine-EPINEPHrine (MAR LARISA with EPI) 0.25 %-1:200,000 preservative free injection 1 01/21/2021 fentaNYL (SUBLIMAZE) preserv ative free syringe 50 mcg 1 01/21/2021 lidocaine PF (XYLOCAINE) 10 mg/mL (1 %) preservative free injection 2-10 mg 1 01/21/2021 naloxone (NARCAN) 0.4 mg/mL injection 0.04-0.4 mg 1 01/21/2021 ondansetron (ZOFRAN) injection 4 mg 1 01/21 prochlorperazine (COMPAZINE) injection 10 mg 1 01/21/2021 sodium chloride 0.9% flush 0.5-20 mL 1 11/2020 sodium chloride 0.9% irrigation 1 sterile water irrigation 1 01/21/2021 documented in this encounter Care Teams Manager Cosmetics Relationship Specialty Start Date End Date Crispin Shen MD Surgeon Colon and Rectal Surgery 09/09/20 documented as of this encounter
--- OUTSIDE RECORDS SUMMARY | 2024-08-18 09:55 | XMS_ITS | Encounter Summary ---
Author Organization [facility] Healthcare Address [address] [place] [address] Care Team Providers Care Machinist 2Nd Shift Name Role Phone Crispin Shen MD Unavailable [phone] Encounter Details Date Type Department Care Team (Latest Contact Info) Description 03/04/2021 8:05 AM CDT - 03/04/2021 11:04 AM CDT Hospital Encounter [facility] Surgery at [facility] [address] [place] [address] Crispin Shen MD [address] [facility] [id number] [place] [address] Discharge Disposition: Discharge to home or self [...] file 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 Gender Identity Female 11/16/2020 2:58 PM [...] documented in this encounter Discharge Diagnoses Diagnosis Anal fistula - ANAL FISTULA Other granulomatous disorders of the skin and subcutaneous tissue - OTHER GRANULOMATOUS DISORDERS OF THE SKIN AND SUBCUTANEOUS TISSUE Obesity, unspecified - OBESITY, UNSPECIFIED Major depressive disorder, single episode, unspecified - MAJOR DEPRESSIVE DISORDER, SINGLE EPISODE, UNSPECIFIED Anxiety disorder, unspecified - ANXIETY DISORDER, UNSPECIFIED Colostomy status (CMS/HCC) (HCC) - COLOSTOMY STATUS Colostomy status Other retirement (current) drug therapy - OTHER LINING CUTTER (CURRENT) DRUG THERAPY Family history of malignant neoplasm of other organs or systems - FAMILY HISTORY OF MALIGNANT NEOPLASM OF OTHER ORGANS OR SYSTEMS documented in this encounter Discharge Instructions * [...] daily or as needed. If prescribed Percocet, [place], Tylenol #3, or any agent containing acetaminophen [...] Office for All Questions and Concerns Office: [phone] (Sunday - Sunday, 8am to 4pm) Exchange: [phone] (after hours, holidays and weekends) * Attachments The following attachments cannot be sent through Care Everywhere. * [facility] PATHWAY TO EXCELLENT CARE AFTER SURGERY documented [...] Cardiovascular Pertinent negatives: hypertension ; CAD ; NM ; CABG ; valvular heart disease; valve [...] severely immunocompromised per the criteria in the [facility] Pre-Procedure COVID-19 Testing Update for Fully [...] Patient instructions were provided electronically sent via Marco Vasco. Patient verbalized understanding of preoperative plan. TPAP [...] 1,000 mg tablet 02/22/2021 -- -- Tyra Carwford MD mirtazapine (REMERON) 15 mg tablet 02/22/2021 [...] Preoperative Assessment and Planning CPAP Clinic Location: [facility] The night before your surgery: * Do [...] of surgery. * If having surgery at [facility], you may want to bring a credit card if you want to use our Mobile Pharmacy for your discharge medications. Mobile pharmacy is not available at [facility], the [facility], or [facility] Outpatient Surgery: * You must have a [...] Planning Perioperative Nursing Note Telephone Preoperative Evaluation ([facility]) - TELEPHONE ONLY, NO PHYSICAL EXAM Date: [...] not in Chart: Copy requested from family Communication/Hog Driver Needs Communication Needs: Contacts Assistive Devices/DME: Contacts Hearing - Right Ear: Functional Hearing - Left Ear: Functional Discharge Planning Type of Residence: Private residence Living Arrangements: Alone Support Systems: Spouse/significant other (fiance to be delivery driver/supervisor and caregiver) Patient expects to be discharged [...] in a congregate living facility (ex. assisted living/prison facility, assisted, [place] health care facility)?: No Have you tested positive for COVID-19 [...] 20 seconds. Use an alcohol- based hand head banquet waiter/waitress that contains at least 60% alcohol if [...] insurance card, a photo ID (like a [place]'s license) and a method of payment for [...] of the surgery. COVID TESTING PLAN COVID TEST not indicated related to COVID Vaccination status criteria met based on current [facility] Pre-Procedure COVID 19 Testing Update for Fully Vaccinated Patients. COVID Vaccination verified via COVID Vaccination Record Card or state registry. If you have COVID testing or should have COVID testing for your surgery/procedure, please read below section: If you need to reschedule your COVID test to a different location or if your surgery gets rescheduled, you MUST call [phone] Sunday-Sunday 8am-4:30pm to get your COVID testing rescheduled or your lab order will not be available at Testing Sites. COVID Testing is only valid for up to 96 hours prior to surgery date, unless otherwise specified. If you are unable to reach staff at the above phone number, please call the CPAP Staff at [phone]. This number cannot order a lab test, [...] 20 seconds. Use an alcohol- based hand head banquet waiter/waitress that contains at least 60% alcohol if soap and water are not available. All patients should read below section: All visitors/patients are being asked to wear a clean mask when entering the hospital. COVID 19 Updates & Visitor Policy: Please access [email or web address] for the most updated information. Information on [facility]: Please view [email or web address] (Patient & Visitor Information) for additional details regarding Advanced Directive forms, AWARE, directions, parking information, lodging, Internet access, dining and more. Information on [facility]: Please view [email or web address] (Patient and Visitor Information) for parking/directions and more. For MyChart information, to activate account or password recovery, please go to [email or web address] or call [phone] (toll-free: [phone]). Surgery Times: For patients having surgery @ [facility], [facility] or [facility], if your surgeon's office has not notified you of your surgery time by NOON THE BUSINESS DAY BEFORE your surgery, please call [phone] and ask for your surgeon'soffice documented in [...] encounter Visit Diagnoses Diagnosis Anal fistula- Primary documented in this encounter Admitting Diagnoses Diagnosis Anal fistula documented in this encounter Administered Medications Inactive Administered Medications - up to 3 most recent administrations Medication Order MAR Action Action Date Dose Rate Site acetaminophen (TYLENOL) tablet 1,000 mg 1,000 mg, oral, Once, On Sun03/04/21 at 0915, For 1 dose, Pre-Op, Indications: Pre-Emptive AnalgesiaIndications:Pre- Emptive Analgesia Given 03/04/2021 8:56 AM CDT 1,000 mg ketorolac (TORADOL) injection 30 mg 30 mg, [...] after each use. documented in this encounter Discontinued Medications Medication [...] [id number] (Rate/Dose Verify - Provider: Kalie Sales NP)[phone] (Rate/Dose Change - Provider: Monico Pitt CRNA)[phone] [...] Count Last Ordered Date First Ordered Date bacitracin-polymyxin B (POLY SPORIN) 500-10,000 unit/gram ointment tube 03/04/2021 bupivacaine-EPINEPHrine (MAR LARISA with EPI) 0.25 %-1:200,000 preservative free injection 03/04/2021 fentaNYL (SUBLIMAZE) preserv ative free syringe 25 mcg 03/04/2021 fentaNYL (SUBLIMAZE) preserv ative free syringe 50 mcg 03/04/2021 lidocaine PF (XYLOCAINE) 10 mg/mL (1 %) preservative free injection 2-10 mg 03/04/2021 naloxone (NARCAN) 0.4 mg/mL injection 0.04-0.4 mg 03/04/2021 ondansetron (ZOFRAN) injection 4 mg 03/04 oxyCODONE (ROXICODONE) tablet 5 mg 2020 prochlorperazine (COMPAZINE) injection 5 mg 03/04/2021 sodium chloride 0.9% flush 0.5-20 mL 02/17 sodium chloride 0.9% irrigation 1 Diet Count Last Ordered Date First Orde red Date ADULT DISCHARGE DIET 1 03/04/2021 Nursing Count Last Ordered Date First Orde red Date DISCHARGE ACTIVITY 1 03/04/2021 DISCHARGE CALL PROVIDER 1 03/04/2021 documented in this encounter Care Teams Machinist 2Nd Shift Relationship Specialty Start Date End Date Crispin Shen MD Surgeon Colon and Rectal Surgery 09/09/20 documented as of this encounter
--- OUTSIDE RECORDS SUMMARY | 2024-08-18 09:55 | XMS_ITS | Encounter Summary ---
Author Organization [facility] Address [address] [facility] [address] [place] [address] Phone Care Team Providers Care Supervisor Quality Control Name Role Phone Crispin Shen MD Unavailable [phone] Encounter Details Date Type Department Care Team (Late st Contact Info) Description 05/13/2021 Orders Only [facility] Surgery [address] [facility] [address] [place] [address] Crispin Shen MD [address] [facility] [phone] [place], [place] [id number] Social History Tobacco Use Types Packs/Day Years [...] How often do you attend chur or yarsani services? 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 Gender Identity Female 11/16/2020 2:58 PM CDT Sexual Orientation Straight 11/16/2020 2: 58 PM CDT documented as of this encounter Ordered Prescriptions Prescription Sig Dispense Quantity Refills Last Filled Start Date End Date gabapentin (NEURONTIN) 100 mg capsule Take 1 capsule (100 mg total) by mouth 3 (three) times a day as needed (for pain) 90 capsule 05/13/2021 2 documented in this encounter Plan of Treatment Not on file documented as of this encounter Visit Diagnoses Not on filedocumented in this encounter Care Teams Supervisor Quality Control Relationship Specialty Start Date End Date Crispin Shen MD Surgeon Colon and Rectal Surgery 09/09/20 documented as of this encounter
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
--- OUTSIDE RECORDS SUMMARY | 2024-08-18 09:55 | XMS_ITS | Encounter Summary ---
Author Organization [facility] Address [address] [facility] [address] [place] [address] Phone Care Team Providers Care Partridge Farmer Name Role Phone Crispin Shen MD Unavailable [phone] Kemi Schmitz Unavailable Reason for Visit * Consultation (Routine) - Closed Specialty Diagnoses / Procedures Referred By Contac t Referred To Contact Surgery / Colon and Rectal Surgery Diagnoses Rectovaginal fistula Kaitlyn Bowen MD [address] [place] [address] Phone: tel: fax: Crispin Shen MD [address] [facility] [phone] [place] [address] Phone: tel: fax: Referral ID Status Reason Start Date Expiration Date V isits Requested Visits Authorized [id number] Closed Specialty Services Required 02/02/2022 02/02/2023 12 12 Encounter Details Date Type Department Care Team (Late st Contact Info) Description 03/10/2022 2:45 PM CDT Office Visit [facility] Surgery [address] [facility] [address] [place] [address] Crispin Shen MD [address] [facility] [phone] [place] [address] Rectovaginal fistula Social History Tobacco Use Types Packs/Day [...] How often do you attend chur or cheondoism services? 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 Gender Identity Female 11/16/2020 2:58 PM CDT Sexual Orientation Straight 11/16/2020 2: 58 PM CDT documented as of this encounter Last Filed Vital Signs Vital Sign Reading Time Taken Comments Blood Pressure 122/86 03/10/2022 2:28 PM CDT Pulse 75 03/10/2022 2:28 PM CDT Temperature 36.7 ??C (98 ??F) 03/10/2022 2:28 PM CDT Respiratory Rate - - Oxygen Saturation 99% 03/10/2022 2:28 PM CDT Inhaled Oxygen Concentration - - Weight 93.4 kg (206 lb) 03/10/2022 2:28 PM CDT Height 177.8 cm (5' 10 ) 03/10/2022 2:28 PM CDT Body Mass Index 29.56 03/10/2022 2:28 PM CDT documented in this encounter Progress Notes * Crispin Shen MD - 03/10/2022 2:45 PM CDT Established Patient Follow-up Visit Interval History: The patient is a 51 y.o. female with a history of anal vaginal fistula. She had a failed gracillis flap by me. I sent her to see Kemi Alvarenga for an episoproctostomy. She had multiple procedures and seems to finally healed this with some hyperbaric oxygen therapy. The plan was for her to go back to [facility] in two weeks for another EUA. She had recent Hypaque study. I have looked at those results. They show no sinus and no fistula. She wants to consider doing her EUA with me and having her colostomy closed shortly thereafter. Review of Systems: All other systems negative except as per HPI and scanned media Physical exam: Constellation: No apparent distress. Head: Normocephalic Eyes: Anicteric Ears, mouth and nose: Normal Neurologic: Non-focal motor function Respiratory: Non-labored breathing Skin: No rashes Musculoskeletal: No gross bony deformities Exam her abdomen shows the well-healed laparoscopic colostomy. Assessment and Plan: Ms. Belem Smith is a 51 y.o. female with a colostomy. I offered to close that. I think we can do that locally but I told her if there was a chance we might have to go in laparoscopically to free up some adhesions internally. We will do the exam under anesthesia first to make sure that things are completely healed. Crispin Shen MD 03/10/2022 2:59 PM This note was created in part with the assistance of [employer] voice recognition software. [employer] Ground Crew Supervisor variances and error may occur. Not every sentence has been reviewed in its entirety. For questions about the documentation above, please contact Dr. Shen. documented in this encounter Plan of Treatment Not on file documented as of this encounter Visit Diagnoses Diagnosis Rectovaginal fistula Digestive-genital tract fistula, female documented in this encounter Discontinued Medications Medication Sig Discontinue Reason Start Date End Da te gabapentin (NEURONTIN) 100 mg capsule Take 1 capsule (100 mg total) by mouth 3 (three) times a day as needed (for pain) Therapy completed 05/13/2021 03/10/2022 sertraline (ZOLOFT) 50 mg tabletIndications:Anxiet y with Depression Take 50 mg by mouth nightly Therapy completed 11/16/2020 03/10/2022 topiramate (Topamax) 50 mg tablet Take 50 mg by mouth daily Therapy completed 03/10/2022 documented as of this encounter Orders Outpatient Referral Count Last Ordered Date Fir st Ordered Date AMB REFERRAL TO COLORECTAL SURGERY 1 2021 documented in this encounter Care Teams Partridge Farmer Relationship Specialty Start Date End Date Crispin Shen MD Surgeon Colon and Rectal Surgery 09/09/20 Kemi Schmitz [address] [facility] [place] [address] Surgeon Colon and Rectal Surgery 05/16/21 documented as of this encounter
--- OUTSIDE RECORDS SUMMARY | 2024-08-18 09:55 | XMS_ITS | Encounter Summary ---
Author Organization [facility] Address [address] [facility] [address] [place] [address] Phone Care Team Providers Care Nurse Intern Name Role Phone Crispin Shen MD Unavailable [phone] Encounter Details Date Type Department Care Team (Late st Contact Info) Description 04/26/2021 2:00 PM CDT Telemedicine [facility] Surgery [address] [place] [address] Crispin Shen MD [address] [facility] [phone] [place] [address] Rectovaginal fistula (Primary Dx) Social History Tobacco [...] any clubs o r organizations such as quaker groups, unions, fraternal or athletic groups, or [...] on file 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 During the visit, I was located in [place] and the patient was located in [place]. The session started at 2:04 p.m. and ended at to 2:13 p.m.. The patient has been informed that the visit may not be secure and acknowledged the information. I have explained the option of participating in a telephone or video visit during the COVID-19 public [facility] emergency to the patient. After being given an opportunity to ask questions about and discuss this type of visit, the patient verbally consented to proceeding with the telephone/video visit.The patient understands that this service replaces an office visit and they may be billed and/or responsible for any applicable copayments. Including chart review, review of imaging and procedure reports, time spent with the patient, and documentation, 15 minutes were dedicated to this visit. HPI: Belem Smith is a 50 y.o. female with a rectovaginal fistula has now failed to repairs even withdiversion. Last time I saw her, she had a clear recurrence of the fistula. She has had a gracillis flap repair of this fistula under the cover of a diverting colostomy. She is calling today to discuss the problem. I had referred her to Dr. Kemi Schmitz of the [facility]. Past medical history, social history, family history, and medications all reviewed and are documented in the record.. Review of Systems: All other systems negative except as noted in the HPI Assessment and Plan: Belem Smith is a 50 y.o. female with a rectovaginal fistula who has failed multiple escalating attempts at repair. I do not think she has many options left and I think her next shot needs to be something radical that is beyond my scope of practice. Dr. Schmitz is the world expert in this problem and is the only person that I think stands a chance at success in this repair. I want her to considerher for an episioproctotomy or some other type of treatment as she sees fit. None of my partners nor myself performed these procedures. I do not know anyone else in the [place] to perform these procedures except for Dr. Schmitz. I think this is the patient's only viable option for treatment. documented in this encounter Plan of Treatment Not on file documented as of this encounter Visit Diagnoses Diagnosis Rectovaginal fistula- Primary Digestive-genital tract fistula, female documented in this encounter Care Teams Nurse Intern Relationship Specialty Start Date End Date Crispin Shen MD Surgeon Colon and Rectal Surgery 09/09/20 documented as of this encounter
--- OUTSIDE RECORDS SUMMARY | 2024-08-18 09:55 | XMS_ITS | Encounter Summary ---
Author Organization [facility] Address [address] [place] [address] Care Team Providers Care Senior Field Engineer Name Role Phone Crispin Shen MD Unavailable [phone] Encounter Details Date Type Department Care Team (Late st Contact Info) Description 01/21/2021 7:30 AM CDT - 01/21/2021 8:00 AM CDT Surgery [facility] Surgery at [facility] [address] [place] [address] Crispin Shen MD [address] [facility] [phone] [place] [address] PLACEMENT SETON Surgery Details Date/Time Status Location OR Service Patient Class Case Cl ass Case Type Trauma Case? 01/21/2021 7:30 AM Posted [facility] Operating Room [place] OR 2 Colorectal Outpatient Elective Panel 1 Procedure LRB Anes Op Region Wound Class Comments PLACEMENT SETON N/A Monitor Anesthes ia Care Anus Class IV - Dirty or Infected Incision And Drainage Abscess - Heidi-Rectal N/A General Anus Class IV - Dirty or Infected Surgeon Surgeon Role Service Panel Crispin Shen MD Primary Colorectal 1 Evelyn Dunn MD Fellow Colorectal 1 documented in this [...] often do you attend chur ch or synagogue services? 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 * [facility] TO EXCELLENT CARE AFTER SURGERY [...] Preoperative Assessment and Planning CPAP Clinic Location: [facility] The night before your surgery: * Do [...] your family. * If having surgery at [facility], you may want to bring a credit card if you want to use our Mobile Pharmacy for your discharge medications. Mobile pharmacy is not available at [facility], [facility], or [facility]. If you have been told to drink [...] DNR/DNI Order: No Patient Requests Assistance: No Communication/Track Maintainer Needs Communication Needs: Contacts Assistive Devices/DME: Contacts [...] in a congregate living facility (ex. assisted living/halfway facility, fdc, detention)?: No Have you tested positive for COVID-19 [...] 20 seconds. Use an alcohol- based hand surgical services coordinator that contains at least 60% alcohol if [...] insurance card, a photo ID (like a Blind Aide's license) and a method of payment for [...] COVID Test Request Placed in Epic to [facility]. Test to be performed on 01/19 at [facility] ([facility])- [address] [place] [address] [place] [address] (Outpatient Lab), M-F 7a-4p, Sat 7a-12p. HOLIDAYhours may vary. If you have COVID testing or should have COVID testing for your surgery/procedure, please read below section: If you need to reschedule your COVID test to a different location or if your surgery gets rescheduled, you MUST call [phone] Sunday-Sunday 8am-4:30pm to get your COVID testing rescheduled or your lab order will not be available at Testing Sites. COVID Testing is only valid for up to 96 hours prior to surgery date, unless otherwise specified. If you are unable to reach staff at the above phone number, please call the CPAP Staff at [phone]. This number cannot order a lab test, [...] 20 seconds. Use an alcohol- based hand surgical services coordinator that contains at least 60% alcohol if soap and water are not available. All patients should read below section: All visitors/patients are being asked to wear a clean mask when entering the hospital. COVID 19 Updates & Visitor Policy: Please access [email or web address] for the most updated information. Information on [facility]: Please view [email or web address] (Patient & Visitor Information) for additional details regarding Advanced Directive forms, AWARE, directions, parking information, lodging, Internet access, dining and more. Information on [facility]: Please view [email or web address] (Patient and Visitor Information) for parking/directions and more. For MyChart information, to activate account or password recovery, please go to [email or web address] or call [phone] (toll-free: [phone]). Surgery Times: For patients having surgery @ [facility], [facility] or [facility], if your surgeon's office has not notified you of your surgery time by NOON THE BUSINESS DAY BEFORE your surgery, please call [phone] and ask for your surgeon'soffice Dr. Shen. For patients having [facility] @ [facility], if your surgeon's office has not notified you of your surgery time by NOON THE BUSINESS DAY BEFORE your surgery, please call the surgery center [phone]. documented in this encounter Plan of Treatment Not on file documented as of this encounter Procedures Procedure Name Priority Date/Time Associated Diagnosis Comments INCISION AND DRAINAGE ABSCESS - HEIDI-RECTAL 01/21/2021 7:21 AM CDT Rectovaginal fistula PLACEMENT SETON 01/21/2021 7:21 AM CDT Rectovaginal fistula documented in this encounter Visit Diagnoses Diagnosis Rectovaginal fistula- Primary Digestive-genital tract fistula, female Rectovaginal fistula Digestive-genital tract fistula, female Rectovaginal fistula Digestive-genital [...] 0745, For 1 dose, Pre-Op, Indications: Pre-Emptive AnalgesiaIndications:P re-Emptive Analgesia Given 01/21/2021 7:17 AM CDT 1,000 mg bupivacaine-EPINEPHrin e (MARCAINE with EPI) 0.25 %-1:200,000 preservative free injection As needed, Starting on Sun01/21/21 at 0641, Intra-Op Given 01/21/2021 6:41 AM CDT 40 mL Surgical Site HYDROcodone-acetaminop hen (NORCO) 5-325 mg per tablet 1 tablet [...] 7:17 AM CDT 30 mL/hr 30 mL/hr sodium chloride 0.9% irrigation As needed, Starting on Sun01/21/21 at 0641, Intra-Op Given 01/21/2021 6:41 AM CDT 1,000 mL Surgical Site sterile water irrigation As needed, Starting on Sun01/21/21 at 0730, Intra-Op Given 01/21/2021 7:30 AM CDT 500 mL Other (Comment) documented in this encounter Discontinued Medications Medication [...] chloride 0.9% flush 0.5-20 mL 1 11/2020 documented in this encounter Care Teams Senior Field Engineer Relationship Specialty Start Date End Date Crispin Shen MD Surgeon Colon and Rectal Surgery 09/09/20 documented as of this encounter
--- OUTSIDE RECORDS SUMMARY | 2024-08-18 09:55 | XMS_ITS | Encounter Summary ---
Author Organization [facility] Address [address] [facility] [address] [place] [address] Phone Care Team Providers Care Deputy Sheriff Chief Name Role Phone Crispin Shen MD Unavailable [phone] Reason for Visit * Reason Comments Post-op Visit S/P 03/04/2021 Exam a nesthesia, anal fistula plug treatment of fistula * Consultation (Routine) - Closed Specialty Diagnoses / Procedures Referred By Cecy t Referred To Contact Surgery / Colon and Rectal Surgery Diagnoses Rectovaginal fistula Kaitlyn Bowen MD [address] [facility] [place] [address] Phone: tel: fax: Crispin Shen MD [address] [facility] [phone] [place] [address] Phone: tel: fax: Referral ID Status Reason Start Date Expiration Date V isits Requested Visits Authorized [id number] Closed Specialty Services Required 03/21/2021 04/20/2022 99 99 Encounter Details Date Type Department Care Team (Late st Contact Info) Description 04/05/2021 11:15 AM CDT Office Visit [facility] Surgery [facility] 8th [place] [address] [place] [address] Crispin Shen MD [address] [facility] [phone] [place] [address] Rectovaginal fistula Social History Tobacco Use Types [...] 11/24/2020 How often do you attend [facility] or religion services? 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 Gender Identity Female 11/16/2020 2:58 PM CDT Sexual Orientation Straight 11/16/2020 2: 58 PM CDT documented as of this encounter Last Filed Vital Signs Vital Sign Reading Time Taken Comments Blood Pressure 122/86 04/05/2021 11:06 AM CDT Pulse 79 04/05/2021 11:06 AM CDT Temperature 36.4 ??C (97.6 ??F) 04/05/2021 1 1:06 AM CDT Respiratory Rate - - Oxygen Saturation - - Inhaled Oxygen Concentration - - Weight 101.3 kg (223 lb 6.4 oz) 021 11:06 AM CDT Height 177.8 cm (5' 10 ) 04/05/2021 11: 06 AM CDT Body Mass Index 32.05 04/05/2021 11:06 AM CDT documented in this encounter Progress Notes * Crispin Shen MD - 04/05/2021 11:15 AM CDT Colorectal Post-operative Visit Patient ID: Belem Smith is a 50 y.o. 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 We treated her with a gracillis flap after she had failed other treatments. She was already diverted. She recurred at the perineal incision. We took her back and did an anal fistula plug a month ago. She is still having drainage. Physical Exam: Her fistula has recurred to the perineal wound. There is granulation tissue at the external opening. I did a digital rectal exam and anoscopy that shows an opening in the distal anal canal the site of the previous anal vaginal fistula. There is a moderate amount of anterior sphincter muscle involved but it is difficult for me to determine what proportion because we have the gracillis flap as partof the perineal body. I just can not tell how much of her sh[place] ira anterior sphincter muscle remains. 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 She might be okay with a fistulotomy, but given everything she has been through, I would like to seek another opinion. An episioproctotomy me might be better advised. That is not a procedure that I do and I would like her to go see Dr. Schmitz at the [facility] to determine if she would benefit from that procedure. She knows she can see me back when and if it comes time to reverse the colostomy. 04/05/2021 Crispin Shen MD documented in this encounter Plan of Treatment Not on file documented as of this encounter Visit Diagnoses Diagnosis Rectovaginal fistula Digestive-genital tract fistula, female documented in this encounter Historical Medications * This list may reflect changes made after this encounter. topiramate (Topamax) 50 mg tablet Take 50 mg by mouth daily 03/10/2022 added in this encounter Orders Outpatient Referral Count Last Ordered Date Fir st Ordered Date AMB REFERRAL TO COLORECTAL SURGERY 1 2020 documented in this encounter Care Teams Deputy Sheriff Chief Relationship Specialty Start Date End Date Crispin Shen MD Surgeon Colon and Rectal Surgery 09/09/20 documented as of this encounter
--- OUTSIDE RECORDS SUMMARY | 2024-08-18 09:55 | XMS_ITS | Encounter Summary ---
Author Organization [facility] Address [address] [place] [address] Phone Care Team Providers Care Buttonhole Maker Hand Name Role Phone Crispin Shen MD Unavailable [phone] Kemi Schmitz Unavailable Reason for Visit * Reason Onset Date Comments Scheduling Appointments 12/14/2021 Return v isit referral arrived in ONbase Encounter Details Date Type Department Care Team (Late st Contact Info) Description 12/14/2021 Telephone [facility] Department of Surgery, Section of Colon and Rectal Surgery [address] [facility] 12th Floor, [place] [address] Mary Ann Del Rosario BS Scheduling Appointments (Return visit referral arrived in ONbase) Social History Tobacco Use Types Packs/Day Years [...] often do you attend chur ch or mormon services? 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 She has had a new EUA and will need to address new fistula care. She will call when she is ready to schedule. * Telephone Encounter - Mary Ann Del Rosario - 12/14/2021 12:42 PM CDT LVM for a return call. Patient has referral to Dr. Shen in [place] to return and discuss colostomy reversal option. documented in this encounter Plan of Treatment Not on file documented as of this encounter Visit Diagnoses Not on filedocumented in this encounter Care Teams Buttonhole Maker Hand Relationship Specialty Start Date End Date Crispin Shen MD Surgeon Colon and Rectal Surgery 09/09/20 Kemi Schmitz [address] [place] [address] Surgeon Colon and Rectal Surgery 05/16/21 documented as of this encounter
--- OUTSIDE RECORDS SUMMARY | 2024-08-18 09:55 | XMS_ITS | Encounter Summary ---
Author Organization [facility] Address [address] [place] [address] Phone Care Team Providers Care Steward/Stewardess Economy Class Name Role Phone Crispin Shen MD Unavailable [phone] Reason for Visit * Reason Onset Date Comments Confirmation 03/03/2021 Encounter Details Date Type Department Care Team (Late st Contact Info) Description 03/03/2021 Telephone [facility] Surgery [address] [facility] 8th [place] [address] [place] [address] Ana M Baig, A Confirmation Social History [...] often do you attend chur ch or yazdanism services? 1 to 4 times per year 11/24/2020 Do you belong to any clubs o r organizations such as baptism groups, iGisticss, fraInfoblox or athletic groups, or school groups? 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 COVID Test: fully vaccinated Prep: NPO after midnight Patient was reminded they need a gas truck driver Confirmed arrival time of 8:00 am at [facility], report to 1st floor [address]. Patient was made aware of current visitor policy and verbalized understanding. documented in this encounter Plan of Treatment Not on file documented as of this encounter Visit Diagnoses Not on filedocumented in this encounter Care Teams Steward/Stewardess Economy Class Relationship Specialty Start Date End Date Crispin Shen MD Surgeon Colon and Rectal Surgery 09/09/20 documented as of this encounter
--- OUTSIDE RECORDS SUMMARY | 2024-08-18 09:56 | XMS_ITS | Encounter Summary ---
Author Organization [facility] Address [address] [place] [address] Phone Care Team Providers Care Eligibility Examiner Name Role Phone Crispin Shen MD Unavailable [phone] Reason for Referral * Consultation (Routine) - Closed Specialty Diagnoses / Procedures Referred By Contac t Referred To Contact Plastic Surgery Diagnoses Rectovaginal fistula Crispin Shen MD Phone: tel: fax: [facility] (All Locations) Referral ID Status Reason Start Date Expiration Date V isits Requested Visits Authorized [id number] Closed Specialty Services Required 10/12/2020 11/11/2021 6 6 Question Answer Please select the performing region: [facility] (All Locations) [[id number]] To provider: MADALYN MAGALLANES [[id number]] # of visits: 1 Comments Joint case with Dr. Shen; Gracilis flap harvest. PACKAGING Reason for Visit * Reason Comments Post-op Visit S/P 09/10/2020 Exam u nder anesthesia, seton placement * Consultation (Routine) - Closed Specialty Diagnoses / Procedures Referred By Contac t Referred To Contact Surgery / Colon and Rectal Surgery Diagnoses Rectal vaginal fistula Referral, Self [facility] Surgery [address] [place] [address] [place] [address] Phone: tel: fax: Referral ID Status Reason Start Date Expiration Date V isits Requested Visits Authorized [id number] Closed Specialty Services Required 07/20/2020 01/18/2021 6 6 Encounter Details Date Type Department Care Team (Late st Contact Info) Description 10/12/2020 8:15 AM VP PACKAGING Office Visit [facility] Surgery [address]th [place] [address] [place] [address] Crispin Shen MD [phone] [place] [address] Rectovaginal fistula (Primary Dx) Social History Tobacco Use Types Packs/Day Years Used Date Smoking Tobacco: Never Smokeless Tobacco: Never Alcohol Use Standard Drinks/Week Comments Not Currently 0 (1 standard drink = 0.6 oz pur e alcohol) Comments No Sex and Gender Information Value Date Recorded Sex Assigned at Not on file Legal Sex Female 9:36 AM VP PACKAGING Gender Identity Female 11/16/2020 2:58 PM CDT Sexual Orientation Straight 11/16/2020 2: 58 PM CDT documented as of this encounter Last Filed Vital Signs Vital Sign Reading Time Taken Comments Blood Pressure 108/72 10/12/2020 8:13 AM VP PACKAGING Pulse 84 10/12/2020 8:13 AM VP PACKAGING Temperature 36.2 ??C (97.1 ??F) 10/12/2020 8:13 AM CS T Respiratory Rate - - Oxygen Saturation - - Inhaled Oxygen Concentration - - Weight 97.5 kg (215 lb) 10/12/2020 8:13 AM VP PACKAGING Height 177.8 cm (5' 10 ) 10/12/2020 8:13 AM VP PACKAGING Body Mass Index 30.85 10/12/2020 8:13 AM VP PACKAGING documented in this encounter Progress Notes * Crispin Shen MD - 10/12/2020 8:15 AM CST Established Patient Follow-up Visit Interval History: The patient is a 49 y.o. 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 I placed a seton a couple of weeks ago. She is doing fine. She is here today to discuss definitive repair. She does not have any issues with continence. Review of Systems: All other systems negative except as per HPI and scanned media Physical exam: Constellation: No apparent distress. Head: Normocephalic Eyes: Anicteric Ears, mouth and nose: Normal Neurologic: Non-focal motor function Respiratory: Non-labored breathing Skin: No rashes Musculoskeletal: No gross bony deformities On exam, everything looks healthy. Her sphincter muscles are intact. Assessment and Plan: Ms. Belem Smith is a 49 y.o. 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 Her sphincters are intact. The best option currently is a gracillis flap. She is diverted with the diverting loop colostomy. She has had a lot of issues with overflow from the colostomy. The plan was to place a [id number] suture in the mucous fistula portion of the colostomy at the time of her surgery because she has this overflow and we need to try to completely divert her fecal stream. We discussed the gracillis flap repair and the plan postoperatively. She understands the risk of recurrence, bleeding, infection, skin breakdown, and medical complications. She knows that she will go home with a drain and a Encinas for a week. I am going to ask Dr. Magallanes or one of his reconstruction partners to harvest the flap. We will make arrangements for her to see the plastic surgeon if necessary before her operation. She understands that she will see me back a month after the surgery and at that time, we will likelyschedule her for an exam under anesthesia and then a Hypaque study. If those look good, she can have her colostomy closed 6-8 weeks after this procedure. Crispin Shen MD 10/12/2020 8:38 AM PACKAGING documented in this encounter Miscellaneous Notes * Addendum Note - Ana M Baig, [facility] - 10/12/2020 8:15 AM CSTAddended by: ANA M BAGI on: 10/12/2020 09:27 AM Modules accepted: Orders PACKAGING documented in this encounter Plan of Treatment Scheduled Referrals Name Type Priority Associated Diagnoses Order Schedule Ambulatory referral to Plastic Surgery Outpatient Referral Routine Rectovaginal fistula Expected: 10/26/2020 (Approximate), Expires: 10/12/2021 documented as of this encounter Visit Diagnoses Diagnosis Rectovaginal fistula- Primary Digestive-genital tract fistula, female documented in this encounter Care Teams Eligibility Examiner Relationship Specialty Start Date End Date Crispin Shen MD Surgeon Colon and Rectal Surgery 09/09/20 documented as of this encounter
--- OUTSIDE RECORDS SUMMARY | 2024-08-18 09:56 | XMS_ITS | Encounter Summary ---
Author Organization [facility] Healthcare Address [address] [place] [address] Care Team Providers Care Plug Machine Operator Name Role Phone Crispin Shen MD Unavailable [phone] Encounter Details Date Type Department Care Team (Late st Contact Info) Description 12/01/2020 Telephone [facility] Surgeon [address] [place], [place] [id number] Nighat Al MD [address] [facility] [address] [place], [place] [id number] Social History Tobacco Use Types Packs/Day Years [...] often do you attend chur ch or advent services? 1 to 4 times per year 11/24/2020 Do you belong to any clubs o r organizations such as cheondoism groups, unions, fraternal or athletic groups, or school groups? No 11/24/2020 How often do you attend meet ings of the clubs or organizations you belong to? Never 11/24/2020 Are you , , di vorced, , never , or living with a partner? Living with partner 11/24/2020 AUDIT-C Answer Date Recorded Q1: How often do you have a drink containing alc ohol? Never 11/24/2020 Average Number of Drinks Not on file 021 Q3: How often do you have si x or more drinks on one occasion? Never 11/24/2020 Hunger Vital Sign Answer Date Recorded Within [...] on file Legal Sex Female 9:36 AM BODY BUMPER Gender Identity Female 11/16/2020 2:58 PM CDT Sexual Orientation Straight 11/16/2020 2: 58 PM CDT documented as of this encounter Miscellaneous Notes * Telephone Encounter - Nighat Al MD - 12/01/2020 1:31 AM CDT Belem Smith 70 - [phone] - Kelepifanio 49F POD7 RIGHT gracilis for rectovaginal fistula repair calls with erythema x 1 day at RIGHT thigh drain site. Drain with approx 40 cc SSG drainage/day. No other concerns. Plan: Reviewed photo, likely skin irritation > early cellulitis. Keflex x 5 days. F/u Kells Fri 12/03 as scheduled, likely can d/c abx then if exam reassuring. documented in this encounter Plan of Treatment Not on file documented as of this encounter Visit Diagnoses Not on filedocumented in this encounter Care Teams Plug Machine Operator Relationship Specialty Start Date End Date Crispin Shen MD Surgeon Colon and Rectal Surgery 09/09/20 documented as of this encounter
--- OUTSIDE RECORDS SUMMARY | 2024-08-18 09:56 | XMS_ITS | Encounter Summary ---
Author Organization [facility] Address [address] [place] [address] Phone Care Team Providers Care Municipal Firefighter Name Role Phone rCispin Shen MD Unavailable [phone] Reason for Visit * Reason Onset Date Comments COVID Survey 10/11/2020 Encounter Details Date Type Department Care Team (Late st Contact Info) Description 10/11/2020 Telephone [facility] Surgery [address] [facility] 8th [place] [address] [place] [address] Ana M Baig RMA COVID Survey Social History Tobacco Use Types Packs/Day Years Used Date Smoking Tobacco: Never Smokeless Tobacco: Never Alcohol Use Standard Drinks/Week Comments Not Currently 0 (1 standard drink = 0.6 oz pur e alcohol) Comments No Sex and Gender Information Value Date Recorded Sex Assigned at Not on file Legal Sex Female 9:36 AM SENIOR CISCO 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 OR CISCO NETWORK ENGINEER documented in this encounter Plan of Treatment Not on file documented as of this encounter Visit Diagnoses Not on filedocumented in this encounter Care Teams Municipal Firefighter Relationship Specialty Start Date End Date Crispin Shen MD Surgeon Colon and Rectal Surgery 09/09/20 documented as of this encounter
--- OUTSIDE RECORDS SUMMARY | 2024-08-18 09:56 | XMS_ITS | Encounter Summary ---
Author Organization [facility] Healthcare Address [address] [place] [address] Care Team Providers Care Franchise Sales Director Name Role Phone Crispin Shen MD Unavailable [phone] Encounter Details Date Type Department Care Team (Late st Contact Info) Description 01/19/2021 6:50 AM CDT Lab [address] [address] Crispin Shen MD [address] [facility] [phone] [place] [address] Pre-procedure lab exam Discharge Disposition: Discharge to home or self [...] How often do you attend chur or evangelical services? 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 Gender Identity Female 11/16/2020 2:58 PM CDT Sexual Orientation Straight 11/16/2020 2: 58 PM CDT documented as of this encounter Discharge Disposition Disposition Code Departure Means Destination Discharge to home or self care documented in this encounter Plan of Treatment Not on file documented as of this encounter Procedures Procedure Name Priority Date/Time Associated Diagnosis Comments INFLUENZA A/B AND COVID-19 PCR Routine 01/19/2021 7:00 AM CDT Pre-procedure lab exam documented in this encounter Results * Influenza A/B and COVID-19 PCR Nasopharyngeal (01/19/2021 7:00 AM CDT) COVID-19 RNA Not Detected MAHSA [facility] (KELLY) Comment: Interpretive Data Synonyms for this test include: PCR and NAAT . ??Testing performed by the [facility]. The 2018-Novel Coronavirus Assay (COVID-19) Real Time RT-PCR assay is for in vitro diagnostic use under FDA emergency use authorization only. A negative RT-PCR result does not preclude infection with COVID-19 and should not be used as the sole basis for treatment or other patient management decisions. ??Additional sample types have been validated according to CLIA regulations. ?? Current Interpretive Data was last revised on September 23, 2020. Testing performed by: [facility], [address] [place]., [address] Influenza A RNA Not Detected Rigo FOSTER (KELLY) Comment:Testing performed by : [facility], [address] [place]., [address] Influenza B RNA Not Detected Rigo FOSTER (KELLY) Comment: Interpretive Data Testing performed by the [facility]. This test is performed using the silvano Influenza A/B Assay. This is a real-time RT-PCR test for the qualitative detection of nucleic acid from Influenza A and Influenza B. This assay has been reviewed by the FDA for Emergency Use Authorization (EUA). The performance characteristics have been verified by the [facility]. Results should be interpreted in combination with clinical context and a negative result does not rule out infection. ?? Interpretive data last revised 2020. Testing performed by: [facility], [address] [place]., [address] First COVID-19 test? No [facility] ([facility]) Comment:Testing performed by : [facility], [address] [facility], [address] Employeed in healthcare? No [facility] ([place]LLY) Comment:Testing performed by : [facility], [address] [facility], [address] status? No CE [facility] ([place]LLY) Comment:Testing performed by : [facility], [address] [facility], [address] Group care resident? No [facility] (KELLY) Comment:Testing performed by : [facility], [address] [facility], [address] Hospitalized? No [facility] (KELLY) Comment:Testing performed by : [facility], [address] [facility], [address] Is patient in ICU? No Rigo FOSTER (KELLY) Comment:Testing performed by : [facility], [address] [facility], [address] Symptomatic as defined by CDC? No [facility] ([place]LLY) Comment:Testing performed by : [facility], [address] [place] [address], [address] Nasopharyngeal 01/19/2021 7: 00 AM CDT 01/19/2021 3:53 PM CDT us Crispin Shen MD LAB MICROBIOLOGY - GENERAL ORD ERABLES Final Result JAZZ [facility] (KELLY) [address] [facility] [place] [address] documented in this encounter Visit Diagnoses Diagnosis Pre-procedure lab exam Pre-procedural laboratory examination documented in this encounter Care Teams Franchise Sales Director Relationship Specialty Start Date End Date Crispin Shen MD Surgeon Colon and Rectal Surgery 09/09/20 documented as of this encounter
--- OUTSIDE RECORDS SUMMARY | 2024-08-18 09:56 | XMS_ITS | Encounter Summary ---
Author Organization [facility] Address [address] [place] [address] Care Team Providers Care Pediatric Physiatrist Name Role Phone Crispin Shen MD Unavailable [phone] Reason for Visit * Diagnostic Imaging (Routine) - Closed Specialty Diagnoses / Procedures Referred By Cecy gage Referred To Contact Radiology Diagnoses Rectovaginal fistula Procedures CT Pelvis W WO Contrast CT pelvis with contrast Crispin Shen MD Phone: tel: fax: [facility] [address] [place] [address] Referral ID Status Reason Start Date Expiration Date Visits Re quested Visits Authorized [id number] Closed 09/01/2020 11/30/2020 1 1 Encounter Details Date Type Department Care Team (Latest Contact Info) Description 09/09/2020 3:20 PM 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 SPECIALIST - 09/09/2020 11:59 PM [facility] Hospital Encounter [facility] Imaging [address] [place], [place] [id number] Crispin Shen MD [address] [facility] [phone] [place] [address] Rectovaginal fistula Discharge Disposition: Discharge to home or self care Social History Tobacco Use Types Packs/Day Years Used Date Smoking Tobacco: Never Smokeless Tobacco: Never Alcohol Use Standard Drinks/Week Comments Not Currently 0 (1 standard drink = 0.6 oz pur e alcohol) Comments Unknown Sex and Gender Information Value Date Recorded Sex Assigned at Not on file Legal Sex Female 9:36 AM 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 SPECIALIST Gender Identity Female 11/16/2020 2:58 PM CDT Sexual Orientation Straight 11/16/2020 2: 58 PM CDT documented as of this encounter Medications at Time of Discharge lysine 1,000 mg tablet Take 1,000 mg by mouth nightly turmeric root extract 500 mg capsule Take 500 mg by mouth nightly ascorbic acid (VITAMIN C) 1,000 mg tabletIndications :Vitamin C Deficiency,supple ment Take 1 tablet (1,000 mg total) by mouth nightly 09/11/2023 cholecalciferol (VITAMIN D-3) 2000 unit capsuleIndication s:Vitamin D Deficiency Take 1 capsule (2,000 Units total) by mouth nightly 09/11/2023 LORazepam (ATIVAN) 0.5 mg tablet Take 1 tablet (0.5 mg total) by mouth 2 (two) times a day as needed for anxiety 07/09/2020 05/14/2023 mirtazapine (REMERON) 15 mg tabletIndications :depression Take 15 mg by mouth nightly 08/24/2020 09/23/2021 multivitamin capsuleIndication s:Vitamin Deficiency Prevention Take 1 capsule by mouth nightly 09/11/2023 omega-3 fatty acids-fish oil 300-1,000 mg capsuleIndication s:for supplement Take 1 capsule (1 g total) by mouth nightly 09/11/2023 oxyCODONE (ROXICODONE) 5 mg immediate release tabletIndications :Pain Take 1 tablet (5 mg total) by mouth every 4 (four) hours as needed for pain 5 tablet 09/10/2020 09/10/2020 sertraline (ZOLOFT) 25 mg tabletIndications :Depression Take 25 mg by mouth every morning 07/09/2020 01/18/2021 zinc 50 mg tabletIndications :for supplement Take 50 mg by mouth nightly 09/11/2023 documented as of this encounter Discharge Disposition Disposition Code Departure Means Destination Discharge to home or self care documented in this encounter Plan of Treatment Not on file documented as of this encounter Procedures Procedure Name Priority Date/Time Associated Diagnosis Comments CT PELVIS W WO CONTRAST Schedule Routine, Read Routine (OP Routine) 09/09/2020 3:56 PM 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 SPECIALIST Rectovaginal fistula POC ISTAT Routine 09/09/2020 3:47 PM 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 SPECIALIST documented in this encounter Results * CT Pelvis W WO Contrast (09/09/2020 3:56 PM 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 SPECIALIST) Anatomical Region Laterality Modality Body N/A Computed Tomogra phy 09/09/2020 4:27 PM 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 SPECIALIST Impressions 09/09/2020 4:44 PM 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 SPECIALIST Changes of prior anovaginal fistula flap repair with a persistent fistulous tract between the anus and distal third of the vagina. Dictated by: Shane Zeng M.D. The radiology attending physician has personally reviewed this study, and had reviewed and/or edited this written report and agrees with it. Electronically signed by: Nimesh Eddy M.D. 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 She underwent prior flap repair but has worsening persistent feculent drainage from her vagina. Patient has a colostomy. TECHNIQUE: ??Transaxial computed tomographic images of the pelvis were obtained with and without intravenous contrast according to the standard protocol after the uneventful administration of 100 mL Opti-Ray 350 intravenous contrast as well as rectal contrast. COMPARISON: None FINDINGS: ?? After instillation of rectal contrast there is opacification of the rectum and distal colon and filling of the patient's colostomy bag. There is also a thin fistulous tract from the anus into the lower third of the vagina with contrast seen exiting the introitus. (Series 8, image [id number]). There is also asymmetric soft tissue thickening within the left labia, from site of prior flap repair. (Series 8, image 149). There is a fibroid uterus. No adnexal mass. Left lower quadrant diverting colostomy. Otherwise the remaining small and large bowel is normal in course and caliber. The visualized kidneys are normal. The bladder is normal. No mesenteric, retroperitoneal, or inguinal lymphadenopathy. No suspicious osseous lesion. 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 She underwent prior flap repair but has worsening persistent feculent drainage from her vagina. Patient has a colostomy. TECHNIQUE: Transaxial computed tomographic images of the pelvis were obtained with and without intravenous contrast according to the standard protocol after the uneventful administration of 100 mL Opti-Ray 350 intravenous contrast as well as rectal contrast. COMPARISON: None FINDINGS: After instillation of rectal contrast there is opacification of the rectum and distal colon and filling of the patient's colostomy bag. There is also a thin fistulous tract from the anus into the lower third of the vagina with contrast seen exiting the introitus. (Series 8, image [id number]). There is also asymmetric soft tissue thickening within the left labia, from site of prior flap repair. (Series 8, image 149). There is a fibroid uterus. No adnexal mass. Left lower quadrant diverting colostomy. Otherwise the remaining small and large bowel is normal in course and caliber. The visualized kidneys are normal. The bladder is normal. No mesenteric, retroperitoneal, or inguinal lymphadenopathy. No suspicious osseous lesion. IMPRESSION: Changes of prior anovaginal fistula flap repair with a persistent fistulous tract between the anus and distal third of the vagina. Dictated by: Shane Zeng M.D. The radiology attending physician has personally reviewed this study, and had reviewed and/or edited this written report and agrees with it. Electronically signed by: Nimesh Eddy M.D. Crispin Shen MD IM CT PROCEDURES Final Result * POC ISTAT (09/09/2020 3:47 PM 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 SPECIALIST) Creatinine, POC, bld 0.8 0.6 - 1.3 mg/dL [facility] Comment: Interpretive data Creatinine <1.5 mg/dL and stable receive IV contrast. Creatinine 1.5-1.9 mg/dL and stable use Visipaque IV contrast. Current interpretive data last reviewed 2015. POC Device Number [id number] [facility] POC Performer [id number] [facility] Blood specimen (specimen) 09/09/2020 3:47 PM 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 SPECIALIST 09/09/2020 3:47 PM 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 SPECIALIST us Crispin Shen MD LAB BLOOD ORDERABLES Final Res ult [facility] [id number] [facility]. Department [place] [address] documented in this encounter Visit Diagnoses Diagnosis Rectovaginal fistula Digestive-genital tract fistula, female documented in this encounter Administered Medications Inactive Administered Medications - up to 3 most recent administrations Medication Order MAR Action Action Date Dose Rate Site ioversoL (OPTIRAY 350) syringe syringe 100 mL 100 mL, intravenous, Once in imaging, contrast, Starting on Ana 09/09/20 at 1548, For 1 dose Given 09/09/2020 3:56 PM 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 SPECIALIST 100 mL documented in this encounter Orders Medications Ordered That Max ht Not Have Been Administered Count Last Ordered Date First Ordered Date diatrizoate meglumine-diatri zoate sodium (GASTROGRAFIN/-GASTROVIEW) 66-10 % solution 60 mL 1 09/10/2020 ioversoL (OPTIRAY 350) syrin ge syringe 100 mL 1 09/09/2020 documented in this encounter Care Teams Pediatric Physiatrist Relationship Specialty Start Date End Date Crispin Shen MD Surgeon Colon and Rectal Surgery 09/09/20 documented as of this encounter
--- OUTSIDE RECORDS SUMMARY | 2024-08-18 09:56 | XMS_ITS | Encounter Summary ---
Author Organization [facility] Address [address] [facility] [address] [place] [address] Phone Care Team Providers Care Evp General Counsel Name Role Phone Crispin Shen MD Unavailable [phone] Reason for Visit * Consultation (Routine) - Closed Specialty Diagnoses / Procedures Referred By Cecy gage Referred To Contact Plastic Surgery Diagnoses Rectovaginal fistula Crispin Shen MD Phone: tel: fax: [facility] (All Locations) Referral ID Status Reason Start Date Expiration Date V isits Requested Visits Authorized [id number] Closed Specialty Services Required 10/12/2020 11/11/2021 6 6 Encounter Details Date Type Department Care Team (Late st Contact Info) Description 12/10/2020 1:50 PM CDT Office Visit [facility] Surgery [address] [facility] 6th [place] [address] [place] [address] Cyndee Guidry MD PhD [address] [place] [address] Rectovaginal fistula (Primary Dx) Social [...] week 11/24/2020 How often do you attend [facility] or nondenominational services? 1 to 4 times per year [...] medical appointments or from getting medications? No 0 02/2021 In the past 12 months, has l ack of transportation kept you from meetings, work, or from getting things needed for daily living? 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 Belem is now 2 weeks status post status post a right pedicled gracilis muscle flap assisted closure of a rectal vaginal fistula with Dr. Shen. Overall the patient appears well. On examination the incision is clean dry and intact no evidence of infection. There was a small amount of firmness and erythema around the gracilis harvest site in the right thighand I think that this is more normal postsurgical changes. However given the fact that it does involve a rectovaginal fistula which will be by definition contaminated I think that it is not unreasonable to continue the patient on some postoperative antibiotics. The patient stated that she was goingto be sent for a CT scan at today and on review it does not appear there was any significant fluid collection or evidence of a postoperative abscess or deep space infection. I removed the patient's PDS skin sutures today in the clinic without difficulty and I think this will relieve some of her discomfort at the incision site. RTC 2 weeks. documented in this encounter Plan of Treatment Not on file documented as of this encounter Visit Diagnoses Diagnosis Rectovaginal fistula- Primary Digestive-genital tract fistula, female documented in this encounter Care Teams Evp General Counsel Relationship Specialty Start Date End Date Crispin Shen MD Surgeon Colon and Rectal Surgery 09/09/20 documented as of this encounter
--- OUTSIDE RECORDS SUMMARY | 2024-08-18 09:56 | XMS_ITS | Encounter Summary ---
Author Organization [facility] Healthcare Address [address] [place] [address] Care Team Providers Care Dining Room Busser Name Role Phone Crispin Shen MD Unavailable [phone] Encounter Details Date Type Department Care Team (Late st Contact Info) Description 09/10/2020 8:11 AM ANALYSIS OR RESEARCH SAFETY INSPECTOR Anesthesia Event [facility] Operating Room [address] [place] [address] Marcello Cannon MD [address] [place] [address] Cielo Mariee, HUMBERTO [address] [facility] [address] [place] [address] Anesthesia Record Procedure Summary Procedure Name Responsible Anesthesiologist Anesthesia Start Time Anesthesia Stop Time EXAM UNDER ANESTHESIA - RECTUM (Anus) Marcello Cannon MD 09/10/20 0811 09/10/20 0834 Events Date Time Event Comment 09/10/2020 0632 In Preop 0737 0759 AN Equip Check 0811 In Room 0811 An Start 0811 An Start Data 0814 Start Supplemental O2 0814 An Induction The patient was reevaluated immediately before moderate or deep sedation use and before anesthesia induction. 0815 Anesthesia Ready 0817 Proc Start 0818 Incision Start 0825 Proc Fin 0826 an stop data 0827 Out of Room 0833 Handoff to RN I completed my handoff [...] disposition at the time of handoff: PACU 0834 An Stop Meds Name Total lidocaine 1 % PF 50 mg propofol 180 mg ketorolac 30 mg dexamethasone 4 mg/ml 4 mg Lactated Ringer's (LR) infusion 500 mL * Agents Name O2 * Blood No blood administrations on file. Lines, Drains, and Airways Type Details Placement Removal Peripheral IV Placement Date: 09/10/20; Placement Time: 07; Catheter Size: 22 G; Orientation: Left; Location: Hand; Site Prep: Chlorhexidine; Inserted by: edrn; Insertion Attempts: 2; Patient Tolerance: Tolerated well; Removal Date: 09/10/20; Removal Time: 0850; Removal Reason: Discharge 09/10/20 0741 by Preeti Estrada RN 09/10/20 0850 by Yumiko Ureña, CHRIS RETIRED Surgical Site 09/10/20; 0827; Heidi-anal; 01/21/21; 0647; Removal date unknown/not present on admission 09/10/20 0827 by Fernanda Ramirez RN 01/21/21 0647 by Andreia Arambula RN documented in this encounter Social History Tobacco Use Types Packs/Day Years Used Date Smoking Tobacco: Never Smokeless Tobacco: Never Alcohol Use Standard Drinks/Week Comments Not Currently 0 (1 standard drink = 0.6 oz pur e alcohol) Comments No Sex and Gender Information Value Date Recorded Sex Assigned at Not on file Legal Sex Female 9:36 AM ANALYSIS OR RESEARCH SAFETY INSPECTOR Gender Identity Female 11/16/2020 2:58 PM CDT Sexual Orientation Straight 11/16/2020 2: 58 PM CDT documented as of this encounter OR Notes * Anesthesia Postprocedure Evaluation - Marcello Cannon MD - 09/10/2020 9:11 AM CST Patient: Belem Smith Procedure Summary Date: 09/10/20 Room / Location: [facility] / [facility] Anesthesia Start: 810 Anesthesia Stop: 833 Procedures: EXAM UNDER ANESTHESIA - RECTUM (N/A Anus) PLACEMENT SETON (N/A Face) Diagnosis: Rectovaginal fistula (Rectovaginal fistula [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.3]) Surgeons: Crispin Shen MD Responsible Provider: Marcello Cannon MD Anesthesia Type: MAC ASA Status: 2 Anesthesia Type: MAC Last vitals BP 99/58 Pulse 88 Temp 36.3 ??C (97.3 ??F) (Temporal) Resp 23 SpO2 99% Anesthesia Post Evaluation Patient location during evaluation: PACU Patient participation: complete - patient participated Level of consciousness: fully awake Pain score: 0 Pain management: satisfactory to patient Airway patency: patent Anesthetic complications: no Cardiovascular status: hemodynamically stable Respiratory status: room air Hydration status: acceptable Pt is: normothermic Nausea/Vomiting status: none YSIS OR RESEARCH SAFETY INSPECTOR * Anesthesia Preprocedure Evaluation - Marcello Cannon MD - 09/06/2020 10:05 AM CST Images from the original note were not included. Center for Preoperative Assessment and Planning Preoperative Evaluation Record Evaluation type/location: [facility] Planned procedure site: [facility] OR Date: 09/06/20 NOTE: This note represents a preoperative evaluation initiated via telephone interview. NO PHYSICALEXAM was performed at the time of initial assessment. A physical exam may be added to this note anddocumented below. Anesthesia Evaluation Belem Smith is a 49 y.o. female Procedure(s): EXAM UNDER ANESTHESIA - RECTUM PLACEMENT SETON Pre-Op Diagnosis Codes: * Rectovaginal fistula [N82.3] HISTORY HPI 49 year old female presenting for EUA rectum with seton placement for rectovaginal fistula with no significant PMH noted Past Medical History Neurological Pertinent negatives: neuromuscular disease; CVA/stroke and TIA Cardiovascular Pertinent negatives: hypertension ; CAD ; NH ; CABG ; valvular heart disease; atrial fibrillation; pacemaker/ICD; DVT/PE; negative for CHF; drug-eluting stent(s) and bare metal stent(s) Respiratory Pertinent negatives: COPD; sleep apnea (CANDE); pulmonary hypertension; no O2 use outside the hospital and non-smoker Hepatic / Heme Pertinent negatives: liver disease Renal / Pertinent negatives: renal disease and dialysis Endocrine / Other Pertinent negatives: diabetes mellitus; thyroid disease; cancer history; transplanted organ and infectious disease Functional Capacity Functional capacity: 4-6 METs Comments: Walks and light activity Able to climb two flights of stairs at moderate pace without SOB or chest pain. Day of Surgery assessments + Possibility of assessed (DOS urine Hcg recommended) Review of Systems + diarrhea (caffiene induced) Pertinent negatives: productive cough; SOB; recent cold/flu; fever; chest pain; orthopnea; PND; previous transfusion; bleeding problems; syncope; nausea and dysphagia PAT Summary and Plans Additional comments: Belem Smith is a 49 y.o. female who is being evaluated prior to undergoing alow cardiac risk surgery. Revised Cardiac Risk Index factors are (none) for a total RCRI of 0 out of 6. Functional capacity is 4-6 METs. . Patient's COVID19 status is: Unexposed. The patient currently has no concerning symptoms of COVID19. . Plan for pre-procedure COVID19 testing: Telephone assessment performed. Request placed for pre-procedure COVID19 testing to be performed on 09/07/2020. [facility] will place the order for testing. Result to be reviewed by surgeon's office. . PRELIMINARY: Obstructive sleep apnea (CANDE) screening status is STOP-Bang=0 suggesting low risk for CANDE. Blood bank needs for day of procedure: No type and screen needed Pending labs/tests include: N/A This assessment was performed via telephone. Therefore the physical exam has been deferred to the day of surgery team. The patient was provided with preoperative instructions for their medications. The patient was instructed to shower/bathe the night prior and the morning of the planned procedure using an antibacterial soap. Patient instructions were provided by telephone. Patient verbalized understanding of preoperative plan. Recommend DOS urine Hcg. Preoperative evaluation performed by Cielo Mariee NP on 09/06/20 at 10:08 AM. TPAP assessment complete . Patient Active Problem List Diagnosis ??? Rectovaginal fistula Past Medical History: Diagnosis Date ??? Anxiety ??? Depression Past Surgical History: Procedure Laterality Date ??? COLOSTOMY 04/18/2020 ??? RECTAL EXAMINATION UNDER ANESTHESIA 12/29/2019 ??? RECTAL SURGERY 01/05/2020 Endorectal Advancement Flap ??? RECTAL SURGERY 04/14/2020 Bulbocavernosus Flap Closure of Rectovaginal Fistula OB History No obstetric history on file. No Known Allergies Med List Status: Nurse Complete Set By: Yvonne Vieyra RN at 09/02/2020 3:04 PM Taking? Last Dose Start Date End Date Provider ascorbic acid (VITAMIN C) 1,000 mg tablet 09/01/2020 -- -- Tyra Crawford MD cholecalciferol (VITAMIN D-3) 2000 unit capsule 09/01/2020 -- -- Tyra Crawford MD LORazepam (ATIVAN) 0.5 mg tablet Past Month 07/09/20 -- Tyra Crawford MD lysine 1,000 mg tablet 09/01/2020 -- -- Tyra Crawford MD mirtazapine (REMERON) 15 mg tablet 09/01/2020 08/24/20 -- Tyra Crawford MD multivitamin capsule 09/01/2020 -- -- Tyra Crawford MD omega-3 fatty acids-fish oil 300-1,000 mg capsule 09/01/2020 -- -- Tyra Crawford MD sertraline (ZOLOFT) 25 mg tablet 09/01/2020 07/09/20 -- Tyra Crawford MD turmeric root extract 500 mg capsule 09/01/2020 -- -- Tyra Crawford MD zinc 50 mg tablet 09/01/2020 -- -- Tyra Crawford MD No current facility-administered medications for this encounter. Current Outpatient Medications: ??? ascorbic acid (VITAMIN C) 1,000 mg tablet ??? cholecalciferol (VITAMIN D-3) 2000 unit capsule ??? LORazepam (ATIVAN) 0.5 mg tablet ??? lysine 1,000 mg tablet ??? mirtazapine (REMERON) 15 mg tablet ??? multivitamin capsule ??? omega-3 fatty acids-fish oil 300-1,000 mg capsule ??? sertraline (ZOLOFT) 25 mg tablet ??? turmeric root extract 500 mg capsule ??? zinc 50 mg tablet Social History Tobacco Use Smoking Status Never Smoker Smokeless Tobacco Never Used Substance and Sexual Activity Alcohol Use Not Currently Substance and Sexual Activity Drug Use Not Currently Family History Problem Relation Age of Onset ??? Thyroid cancer Mother There were no vitals filed for this [...] Medical history, medications, and allergies reviewed. Attestation: I endorse the findings of the anesthesia pre-evaluation assessment dated: 09/06/2020. Airway Exam: Mallampati: I Cervical ROM: FROM TM distance: 3.5 Jaw ROM: full Cardiovascular Exam: Rate: regular Rhythm: regular Pulmonary Exam: LCTA, bilat EENT Exam: trachea midline Dental Exam: Appears intact Current state: Patient's current state is cooperative and interactive. Anesthesia Plan ASA 2 My patient is approved for the Anesthesia Controlled Medication protocol when under care of a GLASS INSTALLER TECHNICIAN Planned anesthesia: MAC Induction: Induction: intravenous. Postoperative Plan: Postoperative administration opioids intended. No postoperative mechanical ventilation intended. Patient's planned disposition post procedure is Outpatient. Informed Consent: Discussed plan with GLASS INSTALLER TECHNICIAN. Anesthesia plan and risks discussed with patient. Consent and Attending signature: I and/or my designee have discussed the anesthesia plan, benefits, possible alternatives, parental presence at time of induction (if indicated), and clinically relevant risks that may include dental injury, unintentional awareness, and/or other complications. The patient and/or parent/legal guardian understand, and agree to proceed. All questions answered. YSIS OR RESEARCH SAFETY INSPECTOR YSIS OR RESEARCH SAFETY INSPECTOR documented in this encounter Plan of Treatment Not on file documented as of this encounter Visit Diagnoses Not on filedocumented in this encounter Administered Medications Inactive Administered Medications - up to 3 most recent administrations Medication Order MAR Action Action Date Dose Rate Site dexAMETHasone (DECADRON) 4 mg/mL injection Administer over 2 Minutes, As needed, Starting on Sun09/10/20 at 0824, Anesthesia Intra-op Given 09/10/2020 8:24 AM ANALYSIS OR RESEARCH SAFETY INSPECTOR 4 mg ketorolac (TORADOL) injection intravenous, As needed, Starting on Sun09/10/20 at 0824, Anesthesia Intra-op Given 09/10/2020 8:24 AM ANALYSIS OR RESEARCH SAFETY INSPECTOR 30 mg lidocaine PF (XYLOCAINE) 10 mg/mL (1 %) preservative free injection As needed, Starting on Sun09/10/20 at 0816, Anesthesia Intra-op Given 09/10/2020 8:16 AM ANALYSIS OR RESEARCH SAFETY INSPECTOR 50 mg propofoL (DIPRIVAN) IV intravenous, As needed, Starting on Sun09/10/20 at 0818, Anesthesia Intra-op Given 09/10/2020 8:21 AM ANALYSIS OR RESEARCH SAFETY INSPECTOR 30 mg Given 09/10/2020 8:19 AM ANALYSIS OR RESEARCH SAFETY INSPECTOR 50 mg Given 09/10/2020 8:18 AM ANALYSIS OR RESEARCH SAFETY INSPECTOR 50 mg documented in this encounter Care Teams Dining Room Busser Relationship Specialty Start Date End Date Crispin Shen MD Surgeon Colon and Rectal Surgery 09/09/20 documented as of this encounter
--- OUTSIDE RECORDS SUMMARY | 2024-08-18 09:56 | XMS_ITS | Encounter Summary ---
Author Organization [facility] Address [address] [place] [address] Phone Care Team Providers Care Periodicals Library Assistant Name Role Phone Crispin Shen MD Unavailable [phone] Reason for Visit * Reason Onset Date Comments Patient issue/concern 12/21/2020 Encounter Details Date Type Department Care Team (Late st Contact Info) Description 12/21/2020 Telephone [facility] Surgery [address] [facility] 8th [place] [address] [place] [address] Leigha De Jesus RMA Patient issue/concern Social History Tobacco Use Types Packs/Day Years [...] often do you attend chur ch or congregation services? 1 to 4 times per year 11/24/2020 Do you belong to any clubs o r organizations such as sabianism groups, unions, [employer] or athletic groups, or school groups? No [...] on file Legal Sex Female 9:36 AM ORTHOTIST PROSTHETIST Gender Identity Female 11/16/2020 2:58 PM CDT Sexual Orientation Straight 11/16/2020 2: 58 PM CDT documented as of this encounter Miscellaneous Notes * Telephone Encounter - Leigha De Jesus RMA - 12/21/2020 10:20 AM CDT Belem called today with concerns of stool leaking at her old fistula site where the flap was placedduring surgery. She cancelled her appointment with plastics for her f/u and is aware that Dr. Shen wants her to f/u to have the flap checked postoperatively to ensure that nothing has happened with the flap. She is going to call plastics for an appointment and will f/u with their office. She had no further questions/concerns at the time of call. documented in this encounter Plan of Treatment Not on file documented as of this encounter Visit Diagnoses Not on filedocumented in this encounter Care Teams Periodicals Library Assistant Relationship Specialty Start Date End Date Crispin Shen MD Surgeon Colon and Rectal Surgery 09/09/20 documented as of this encounter
--- OUTSIDE RECORDS SUMMARY | 2024-08-18 09:56 | XMS_ITS | Encounter Summary ---
Author Organization [facility] Healthcare Address [address] [place] [address] Care Team Providers Care Bottom Sprayer Name Role Phone Crispin Shen MD Unavailable [phone] Encounter Details Date Type Department Care Team (Latest Contact Info) Description 09/10/2020 6:11 AM MUNICIPAL CLERK - 09/10/2020 9:31 AM MUNICIPAL CLERK Hospital Encounter [facility] Operating Room [address] [place] [address] Crispin Shen MD [address] [facility] [id number] [place] [address] Discharge Disposition: Discharge to home or self care Social History Tobacco Use Types Packs/Day Years Used Date Smoking Tobacco: Never Smokeless Tobacco: Never Alcohol Use Standard Drinks/Week Comments Not Currently 0 (1 standard drink = 0.6 oz pur e alcohol) Comments No Sex and Gender Information Value Date Recorded Sex Assigned at Not on file Legal Sex Female 9:36 AM MUNICIPAL CLERK Gender Identity Female 11/16/2020 2:58 PM CDT Sexual Orientation Straight 11/16/2020 2: 58 PM CDT documented as of this encounter Last Filed Vital Signs Vital Sign Reading Time Taken Comments Blood Pressure 99/58 09/10/2020 8:45 AM MUNICIPAL CLERK Pulse 88 09/10/2020 8:45 AM MUNICIPAL CLERK Temperature 36.3 ??C (97.3 ??F) 09/10/2020 8:29 AM CS T Respiratory Rate 23 09/10/2020 8:45 AM MUNICIPAL CLERK Oxygen Saturation 99% 09/10/2020 8:45 AM MUNICIPAL CLERK Inhaled Oxygen Concentration - - Weight 90.7 kg (200 lb) 09/10/2020 6:30 AM MUNICIPAL CLERK Height 177.8 cm (5' 10 ) 09/10/2020 6:30 AM MUNICIPAL CLERK Body Mass Index 28.7 09/10/2020 6:30 AM MUNICIPAL CLERK documented in this encounter Discharge Diagnoses Diagnosis Fistula of vagina to large intestine - FISTULA OF VAGINA TO LARGE INTESTINE Major depressive disorder, single episode, unspecified - MAJOR DEPRESSIVE DISORDER, SINGLE EPISODE, UNSPECIFIED Anxiety disorder, unspecified - ANXIETY DISORDER, UNSPECIFIED Other correction (current) drug therapy - OTHER CYBER LEGAL ADVISOR (CURRENT) DRUG THERAPY Colostomy status (CMS/HCC) ([facility]) - COLOSTOMY STATUS Colostomy status documented in this encounter Medications at Time [...] (1 g total) by mouth nightly 09/11/2023 sertraline (ZOLOFT) 25 mg tabletIndications :Depression Take [...] needed for pain 5 tablet 09/10/2020 09/10/2020 documented in this encounter Discharge Disposition Disposition Code Departure Means Destination Discharge to home or self care documented in this encounter H&P Notes * Crispin Shen MD - 09/10/2020 7:51 AM CST I have reviewed the H&P, examined the patient, and endorse the findings as written. Plan of Care : Based on the above findings, I consider Belem Smith to be an acceptable risk for :Procedure(s): EXAM UNDER ANESTHESIA - RECTUM PLACEMENT SETON CIPAL CLERK Source Note - Crispin Shen MD - 08/31/2020 10:30 AM MUNICIPAL CLERK Colorectal Surgery Consultation Consult requested by Kaitlyn Brown* Chief Complaint: Belem Smith is a 49 y.o. female with chief complaint of anal vaginal fistula. HPI: Belem Smith is a 49 y.o. female WITH AN ANO VAGINAL FISTULA. She has had a longstanding fistula that was likely from a injury. They attempted endorectal advancement flap last December which failed. She had a Martius flap in March that also failed early on and required a loop sigmoid colostomy. Since that time, she has had intermittent swelling at the site of the Martius flap harvest. She alsohas intermittent feculent drainage from the rectum and vagina were, especially when her stool is watery. Review of Systems: All other systems negative except as per HPI and scanned media Physical exam: Constellation: No apparent distress. Head: Normocephalic, atraumatic Eyes: Anicteric, extraocular movements intact Ears, mouth and nose: Normal Neurologic: Non-focal motor function Pulmonary: Non-labored breathing, no audible wheezing Integumentary: No rashes Musculoskeletal: No gross bony deformities On exam her abdomen, she has end loop colostomy with the distal limb hidden but open. On external inspection of perineum, everything looks normal. Digital rectal exam is normal with therelatively thin perineal body. Anoscopy shows an opening in the mid anal canal. Assessment and Plan: Ms. Belem Smith is a 49 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 I agree that the next step should be a gracillis flap under the cover of the diverting colostomy. They want to think about getting it here versus doing it back in [place]. I told them that was more than qualified to do all these procedures and that everything she had done up to this point was exactly as I would have done. She might benefit from having the distal limb of the colostomy oversewn in order to get this to heal better. Prior to that, I would like to get a CT of the pelvis before taking her for a exam under anesthesia and a seton placement. They have some concern that there may be a blind pocket und erneath the Martius flap and from her symptoms, that is certainly possible. I told him if there was, we might drainage or or open it. The CT will help shed some light on that. I told him after that we placed the seton, that I would wait 6-8 weeks before attempting the gracillis flap. They are goingto think about things. They will let us know if they want to continue the treatment in [place] or transfer down here. Crispin Shen MD 08/31/2020 12:35 PM CIPAL CLERK * Horace Escoto MD - 09/10/2020 6:40 AM CST I have reviewed the H&P, examined the patient, and endorse the findings as written. Plan of Care : Based on the above findings, I consider Belem Smith to be an acceptable risk for :Procedure(s): EXAM UNDER ANESTHESIA - RECTUM PLACEMENT SETON . Vitals: 09/02/20 1505 09/10/20 0630 Temp: 36.6 ??C (97.9 ??F) TempSrc: Temporal Weight: 90.7 kg (200 lb) 90.7 kg (200 lb) Height: 177.8 cm (5' 10 ) 177.8 cm (5' 10 ) Gen: NAD Cv: rrr Pulm:Unlabored Abd: soft, ND, NT Cosigned by Crispin Shen MD at 09/23/2020 11:25 AM MUNICIPAL CLERK CIPAL CLERK CIPAL CLERK Source Note - Kodi Cielo Ballardbecca Navarro, HUMBERTO - 09/06/2020 10:05 AM MUNICIPAL CLERK Images from the original note were not included. [facility] for Preoperative Assessment and Planning Preoperative Evaluation Record Evaluation type/location: TPAP from [facility] Planned procedure site: [facility] OR Date: 09/06/20 NOTE: This note [...] COVID19 testing to be performed on 09/07/2020. [facility] will place the order for testing. Result [...] last 720 hours. Sandeep index score: 100 CIPAL CLERK documented in this encounter Miscellaneous Notes * Perioperative Nursing Note - Fernanda Ramirez RN - 09/10/2020 8:33 AM MUNICIPAL CLERK Vessel loop/seton placed and secured by Dr. Shen CIPAL CLERK * Op Note - Crispin Shen MD - 09/10/2020 8:18 AM CST SURGICAL TEAM Surgeon(s) and Role: * Crispin Shen MD - Primary * Horace Escoto MD - Resident - Assisting ANESTHESIA: Monitor Anesthesia Care PREOPERATIVE DIAGNOSIS (ES): Anovaginal fistula POSTOPERATIVE DIAGNOSIS (ES): Anovaginal fistula NAME OF OPERATION: Exam under anesthesia, seton placement INDICATIONS FOR PROCEDURE: The patient is a 49 y.o. female with an anovaginal fistula. She has a failed Martius flap reconstruction. She is brought the operating room for exam under anesthesia to rule out an abscess at the site of her Martius flap harvest and to place a seton. FINDINGS: There was no abscesses Martius flap harvest site. DESCRIPTION OF PROCEDURE: The patient was brought the operating room, placed under MAC anesthesia in the prone gabriel-knife position. The perineum was prepped and draped in normal sterile fashion and anesthetized with 40 mL of 0.25% Marcaine. A detailed digital rectal exam was performed which was unremarkable except for some induration anteriorly at the site of the fistula. An anoscope was placed in the anal canal. A probe was passed through the internal opening. It passed directly to the vagina. There was no passage toward the Martius flap on theleft side. The area around the Martius flap was evaluated and there was no evidence of any undrained sepsis and no evidence of any fluctuation or fluid. There was no passage to this wound from the fistula tract. A loose vessel loop seton was placed through the fistula. The procedure was terminated Estimated Blood Loss: None IV Fluids: See Anesthesia records Sponge, Instrument and Needle counts: Correct times two Presence statement: I was present for the entire procedure from start to finish CIPAL CLERK * Pre-Procedure Instructions - Cielo Mariee NP - 09/06/2020 9:10 AM CST [facility] Preoperative Assessment and Planning CPAP Clinic Location: [facility] The night before your surgery: [...] valuables at home or with your family. You may want to bring a credit card if you want to use our Mobile Pharmacy for your discharge medications. * If you are still having menstrual cycles, you should come with a full bladder on the morning of surgery in order to provide a urine sample. * If you have an implantable device with a remote, bring the remote with you on the day of surgery. Outpatient Surgery: * You must have a responsible adult drive you home and stay with you for 24 hours after your surgery * You cannot be alone at home or in a hotel * Please call your surgeon's office if you do not have someone to drive you home and/or stay with you after surgery Instructions For Your Medications: Pre-Surgery Instructions: Medication [...] mirtazapine (REMERON) 15 mg tablet Take night prior to procedure per usual schedule ??? multivitamin capsule Stop taking 5 days prior to surgery ??? omega-3 fatty acids-fish oil 300-1,000 mg capsule Don't take on day of surgery ??? sertraline (ZOLOFT) 25 mg tablet Take night prior to procedure per usual schedule ??? turmeric root extract 500 mg capsule Stop taking 5 days prior to surgery ??? zinc 50 mg tablet Don't take on day of surgery General Instructions For Medications: ?? For [...] bowel prep or special diet before surgery CIPAL CLERK * Pre-Procedure Instructions - Yvonne Vieyra RN - 09/02/2020 3:08 PM MUNICIPAL CLERK PRE-SURGICAL INSTRUCTIONS ??? General Information ?? Surgery [...] insurance card, a photo ID (like a Circuit Designer's license) and a method of payment for [...] hair products the morning of the surgery. ?? COVID TESTING PLAN CCOVID Test Request Placed in Epic to [facility]. Test to be performed on 09/08/2020 at [place], [place] location If you have COVID testing or should have COVID testing for your surgery/procedure, please read below section: If you need to reschedule your COVID test to a different location or if your surgery gets rescheduled, you MUST call [phone] Sunday-Sunday 8am-4:30pm to get your COVID testing rescheduled or your lab order will not be available at Testing Sites. COVID Testing is only valid for up to 96 hours prior to surgery date, unless otherwise specified. If you are unable to reach staff at the above phone number, please call the CPAP Staff at [phone]. This number cannot order a lab test, [...] 20 seconds. Use an alcohol- based hand manager acute that contains at least 60% alcohol if soap and water are not available. All patients should read below section: All visitors/patients are being asked to wear a clean mask when entering the hospital. COVID 19 Updates & Visitor Policy: Please access [email or web address] for the most updated information. Information on [facility]: Please view [email or web address] (Patient & Visitor Information) for additional details regarding Advanced Directive forms, AWARE, directions, parking information, lodging, Internet access, dining and more. Information on [facility]: Please view [email or web address] (Patient and Visitor Information) for parking/directions and more. Surgery Times: ??? For [facility], if your surgeon's office has not notified you of your surgery time by NOON THE BUSINESS DAY BEFORE your surgery, please call [phone] and ask for your surgeon's office Dr. Crispin Shen CIPAL CLERK CIPAL CLERK documented in this encounter Plan of Treatment Not on file documented as of this encounter Procedures Procedure Name Priority Date/Time Associated Diagnosis Comments POCT HCG, URINE Routine 09/10/2020 10:02 AM MUNICIPAL CLERK PLACEMENT SETON 09/10/2020 8:11 AM MUNICIPAL CLERK Rectovaginal fistula EXAM UNDER ANESTHESIA - RECTUM 09/10/2020 8:11 AM MUNICIPAL CLERK Rectovaginal fistula documented in this encounter Results * POCT hCG, urine (09/10/2020 10:02 AM MUNICIPAL CLERK) HCG, ur, POC Negative Lot Number [id number] QC Backgroud Clear Acceptable QC Control Line Acceptable Urine 09/10/2020 10:0 2 AM MUNICIPAL CLERK [facility] Provider MD POINT OF CARE TEST ORDERA BLES Final [...] infusion 30 mL/hr, intravenous, Continuous, Starting on Sun09/10/20 at 0730, Pre-Op, Use a 500 ml bag for End Stage Renal Disease Patients New Bag 09/10/2020 7:42 AM MUNICIPAL CLERK 30 mL/hr 30 mL/hr documented in this encounter Discontinued Medications Medication Sig Discontinue Reason Start Date End Da te topiramate (TOPAMAX) 50 mg tablet Take 50 mg by mouth 2 (two) times a day Error 08/07/2020 09/02/2020 documented as of this encounter Active and Recently Administered Medications Times are shown in MUNICIPAL CLERK. Continuous Medication Order 09/08/2020 09/09/2020 09/10/2020 Lactated Ringer's (LR) infusion (CANCELED) 30 mL/hr, intravenous, Continuous, Starting on Sun09/10/20 at 0730, Pre-Op, Use a 500 ml bag for End Stage Renal Disease Patients 0742 (New Bag - Prov ider: Preeti Estrada RN)0827 (Anesthesia Volume Adjustment - Provider: Blanca Salas CRNA - Comment: LTC: 500ml unable to document on OCT-saying its locked at nurses station)0853 (Stopped - Provider: Yumiko Ureña RN) Lactated Ringer's (LR) infusion 125 mL/hr, intravenous, Continuous, Starting on Sun09/10/20 at 0900, Phase I 0853 (Stopped - Prov ider: Yumiko Ureña RN) PRN Medication Order 09/08/2020 09/09/2020 09/10/2020 acetaminophen (TYLENOL) tablet 500 mg 500 mg, oral, As needed, headaches, other, Breakthrough Pain and Supplement to other pain meds, Starting on Sun09/10/20 at 0826, For 2 doses, Phase I, When able to tolerate PO after consulting with Anesthesiologist., Indications: Pain bupivacaine-EPINEPHrine (MARCAINE with EPI) 0.25 %-1:200,000 preservative free injection (CANCELED) As needed, Starting on Sun09/10/20 at 0821, Intra-Op 0821 (Given - Provid er: Crispin Shen MD) diphenhydrAMINE (BENADRYL) injection 12.5 mg 12.5 mg, intravenous, Administer over 1 Minutes, Every 5 min PRN, itching, other, For Nausea, administer 25 mg IV., Starting on Sun09/10/20 at 0826, For 4 doses, Phase I, Max cumulative dose 50 mg., Indications: Itching fentaNYL (SUBLIMAZE) preservative free injection 25 mcg 25 mcg, intravenous, Every 5 min PRN, 1st line for pain, uncontrolled pain on PACU admission for outpatients, Starting on Sun09/10/20 at 0826, For 4 doses, Phase I, Use as 1st line for outpatients, dose not to exceed 100 mics. Then proceed to second line at [facility] after consulting anestheiologist, Indications: Pain HYDROcodone-acetaminophen (NORCO) 5-325 mg per tablet 1 tablet 1 tablet, oral, Every 20 min PRN, 3rd line for pain, breakthrough pain, May give TWO doses at the same time for severe pain after consulting with Anesthesiologist, Starting on Sun09/10/20 at 0826, For 2 doses, Phase I, When able to tolerate PO., Indications: Pain HYDROmorphone (DILAUDID) injection 0.2 mg 0.2 mg, intravenous, Administer over 2 Minutes, Every 5 min PRN, 2nd line for pain, Use as 1st line pain med for patients at [facility]. Use as 2nd line at [facility] after consulting with anesthesiologist., Starting on Sun09/10/20 at 0826, Phase I, Notify Anesthesiologist if total PACU dose reaches 2 mg for inpatients and 1 mg total for outpatients, and pain score 5/10 or more., Indications: Pain labetaloL (NORMODYNE,TRANDATE) injection 5 mg 5 mg, intravenous, Every 5 min PRN, high blood pressure, Starting on Sun09/10/20 at 0826, For 4 doses, Phase I, Max cumulative dose 20 mg. Dose if systolic blood pressure greater than 180 AND HR greater than 70. meperidine (DEMEROL) preservative free injection 12.5 mg 12.5 mg, intravenous, Every 10 min PRN, shivering, Starting on Sun09/10/20 at 0826, For 2 doses, Phase I, Max cumulative dose 25 mg., Indications: Shivering naloxone (NARCAN) 0.4 mg/mL injection 0.04-0.4 mg 0.04-0.4 mg, intravenous, Once as needed, other, excessive sedation/respiratory depression, Starting on Sun09/10/20 at 0826, For 1 dose, Phase I, Dilute 0.4 mg with 9 mL NS (final concentration 0.04 mg/mL). For respiratory depression (respiratory rate less than 6), administer 0.4 mg IVP over 30 seconds. For excessive sedation administer 0.04 mg (1 mL) every 1 minute until desired level of alertness. Consult with Anesthesiologist before administration. Administer 40 mics at a time. For IV, administer over 30 seconds., Indications: Opioid Toxicity ondansetron (ZOFRAN) injection 4 mg 4 mg, intravenous, Administer over 2 Minutes, Once as needed, nausea, vomiting, Starting on Sun09/10/20 at 0826, For 1 dose, Phase I, Proceed to prochlorperazine if ondansetron has been given within the last 6 hours. prochlorperazine (COMPAZINE) injection 5 mg 5 mg, intravenous, Every 10 min PRN, nausea, vomiting, Check with Anesthesiologist before administring, and ask about IV versus IM., Starting on Sun09/10/20 at 0826, For 2 doses, Phase I, If nausea/vomiting not relieved by ondansetron within 30 minutes or if ondansetron has been given within the last 6 hours. sodium chloride 0.9 % irrigation (CANCELED) As needed, Starting on Sun09/10/20 at 0822, Intra-Op 0822 (Given - Provid er: Crispin Shen MD) documented in this encounter Orders Medications Ordered That Max ht Not Have Been Administered Count Last Ordered Date First Ordered Date acetaminophen (TYLENOL) tablet 500 mg bupivacaine-EPINEPHrine (MAR LARISA with EPI) 0.25 %-1:200,000 preservative free injection 09/10/2020 diphenhydrAMINE (BENADRYL) i njection 12.5 mg 09/10/2020 fentaNYL (SUBLIMAZE) preserv ative free injection 25 mcg 09/10/2020 HYDROcodone-acetaminophen (N ORCO) 5-325 mg per tablet 1 tablet 09/10/2020 HYDROmorphone (DILAUDID) injection 0.2 mg 1 09/10/2020 labetaloL (NORMODYNE,TRANDAT E) injection 5 mg 1 09/10/2020 Lactated Ringer's (LR) infusion 1 lidocaine PF (XYLOCAINE) 10 mg/mL (1 %) preservative free injection 2-10 mg 1 09/10/2020 meperidine (DEMEROL) preserv ative free injection 12.5 mg 1 09/10/2020 naloxone (NARCAN) 0.4 mg/mL injection 0.04-0.4 mg 1 09/10/2020 ondansetron (ZOFRAN) injection 4 mg 1 09/10 prochlorperazine (COMPAZINE) injection 5 mg 1 09/10/2020 scopolamine patch 72 hour 1 patch 1 021 sodium chloride 0.9 % irrigation 1 09/10/19 sodium chloride 0.9% flush 0.5-20 mL 08/21 Diet Count Last Ordered Date First Orde red Date ADULT DISCHARGE DIET 1 09/10/2020 Nursing Count Last Ordered Date First Orde red Date DISCHARGE ACTIVITY 1 09/10/2020 DISCHARGE CALL PROVIDER 1 09/10/2020 DISCHARGE INSTRUCTIONS 1 09/10/2020 documented in this encounter Care Teams Bottom Sprayer Relationship Specialty Start Date End Date Crispin Shen MD Surgeon Colon and Rectal Surgery 09/09/20 documented as of this encounter
--- OUTSIDE RECORDS SUMMARY | 2024-08-18 09:56 | XMS_ITS | Encounter Summary ---
Author Organization [facility] Address [address] [place] [address] Phone Care Team Providers Care Asbestos Microscopist Name Role Phone Unavailable Primary Care Provider Unavailabl e Encounter Details Date Type Department Care Team (Late st Contact Info) Description 07/13/2020 Orders Only [facility] Surgery [address] [facility] 8th [place] [address] [place] [address] Provider, Tyra, [address] [place], [place] [id number] Social History Tobacco Use Types Packs/Day Years Used Date Smoking Tobacco: Never Assessed Comments Unknown Sex and Gender Information Value Date Recorded Sex Assigned at Not on file Legal Sex Female 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
--- OUTSIDE RECORDS SUMMARY | 2024-08-18 09:56 | XMS_ITS | Encounter Summary ---
Author Organization [facility] Address [address] [place] [address] Care Team Providers Care Protein Specialist Name Role Phone Crispin Shen MD Unavailable [phone] Reason for Referral * MRI/CAT/PET Scan (Routine) - Closed Specialty Diagnoses / Procedures Referred By Cecy gage Referred To Contact Radiology Diagnoses Post-operative pain Cellulitis of right upper extremity Procedures CT pelvis with contrast Crispin Shen MD [address] [facility] [phone] [place] [address] Phone: tel: fax: [address] [phone] Referral ID Status Reason Start Date Expiration Date Visits Re quested Visits Authorized [id number] Closed 12/08/2020 01/07/2022 1 1 * MRI/CAT/PET Scan (Routine) - Closed Specialty Diagnoses / Procedures Referred By Cecy gage Referred To Contact Radiology Diagnoses Post-operative pain Cellulitis of right upper extremity Procedures CT Femur Right W Contrast Crispin Shen MD [address] [facility] [id number] [place] [address] Phone: tel: fax: [address] [phone] Referral ID Status Reason Start Date Expiration Date Visits Re quested Visits Authorized [id number] Closed 12/08/2020 01/07/2022 1 1 Reason for Visit * MRI/CAT/PET Scan (Routine) - Closed Specialty Diagnoses / Procedures Referred By Contac t Referred To Contact Radiology Diagnoses Post-operative pain Cellulitis of right upper extremity Procedures CT pelvis with contrast Crispin Shen MD [address] [facility] [phone] [place] [address] Phone: tel: fax: [address] [phone] Referral ID Status Reason Start Date Expiration Date Visits Re quested Visits Authorized [id number] Closed 12/08/2020 01/07/2022 1 1 Encounter Details Date Type Department Care Team (Latest Contact Info) Description 12/10/2020 2:13 PM CDT - 12/10/2020 11:59 PM CDT Hospital Encounter [facility] [address] [place] [id number] Crispin Shen MD [address] [facility] [phone] [place] [address] Post-operative pain; Cellulitis of right upper extremity Discharge Disposition: Discharge to home or self [...] file 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 Gender Identity Female 11/16/2020 2:58 PM CDT Sexual Orientation Straight 11/16/2020 2: 58 PM CDT documented as of this encounter Medications at Time of Discharge lysine 1,000 mg tablet Take 1,000 mg by mouth nightly turmeric root extract 500 mg capsule Take 500 mg by mouth nightly metroNIDAZOLE (FLAGYL) 500 mg tablet Take 1 tablet (500 mg total) by mouth 3 (three) times a day for 10 days 30 tablet 12/08/2020 1 amoxicillin-clav ulanate (AUGMENTIN) 875-125 mg per tablet Take 1 tablet by mouth 2 (two) times a day for 10 days 20 tablet 12/03/2020 1 ascorbic acid (VITAMIN C) 1,000 mg tabletIndication [...] hours as needed for pain 15 tablet 11/25/2020 1 sertraline (ZOLOFT) 25 mg tabletIndication s:Depression Take 25 mg by mouth every morning 07/09/2020 1 sertraline (ZOLOFT) 50 mg tabletIndication s:Anxiety [...] Name Priority Date/Time Associated Diagnosis Comments CT FEMUR RIGHT W CONTRAST Schedule Routine, Read Routine (OP Routine) 12/10/2020 2:39 PM CDT Post-operative pain Cellulitis of right upper extremity CT PELVIS W CONTRAST Schedule Routine, Read Routine (OP Routine) 12/10/2020 2:39 PM CDT Post-operative pain Cellulitis of right upper extremity documented in this encounter Results * CT pelvis with contrast (12/10/2020 2:39 PM CDT) Anatomical Region Laterality Modality Body N/A Computed Tomogra phy 12/10/2020 3:45 PM CDT Impressions 12/10/2020 3:54 PM CDT 1. 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 2. ??Cellulitis of the right medial thigh with 4.0 x 2.5 cm fluid collection in the gracilis space with thin rim enhancement. This likely represents a seroma with or without superinfection. Dictated by: Sada Perez M.D. The radiology attending physician has personally reviewed this study, and had reviewed and/or edited this written report and agrees with it. Electronically signed by: Santiago Kilpatrick M.D. Narrative 12/10/2020 3:54 PM CDT EXAMINATION: 1.CT pelvis with contrast 2. ??CT femur right with contrast HISTORY: Cellulitis of right thigh drain. 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 ?? Technique: Transaxial images of the pelvis and right femur with multiplanar reconstructions are submitted for interpretation with intravenous contrast after the uneventful administration of 100 mL Opti-Ray 350 intravenous contrast. COMPARISON: CT pelvis 09/09/2020 FINDINGS: Pelvis: Redemonstrated are post surgical changes of interval anovaginal fistula flap ??repair with right gracilis rotational flap. ??There is mild postoperative stranding. ??No adjacent fluid collections are seen. There is a left lower quadrant diverting colostomy. ??There is a fibroid uterus. ??The adnexa are normal. ??The bladder is normal. ??The visualized loops of small and large bowel are normal. ??There is no pelvic or inguinal lymphadenopathy. No acute fracture. ??The hip joints are normal. ??There is mild degenerative disc disease of L5-S1. Right femur: There is an area of soft tissue stranding in the medial right thigh adjacent to the gracilis space extending inferiorly to the level of the posterior knee. ??There is a fluid collection measuring 4.0 x 2.5 cm in the gracilis space adjacent to the adductor muscles with minimal thin rim enhancement. ??Multiple surgical clips are seen in the adductor muscles. There are no cortical erosions. ??No acute fracture. ??The hip joint space is normal. Procedure Note Santiago Kilpatrick MD - 12/10/2020 EXAMINATION: 1.CT pelvis with contrast 2. CT femur right with contrast HISTORY: Cellulitis of right thigh drain. 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 Technique: Transaxial images of the pelvis and right femur with multiplanar reconstructions are submitted for interpretation with intravenous contrast after the uneventful administration of 100 mL Opti-Ray 350 intravenous contrast. COMPARISON: CT pelvis 09/09/2020 FINDINGS: Pelvis: Redemonstrated are post surgical changes of interval anovaginal fistula flap repair with right gracilis rotational flap. There is mild postoperative stranding. No adjacent fluid collections are seen. There is a left lower quadrant diverting colostomy. There is a fibroid uterus. The adnexa are normal. The bladder is normal. The visualized loops of small and large bowel are normal. There is no pelvic or inguinal lymphadenopathy. No acute fracture. The hip joints are normal. There is mild degenerative disc disease of L5-S1. Right femur: There is an area of soft tissue stranding in the medial right thigh adjacent to the gracilis space extending inferiorly to the level of the posterior knee. There is a fluid collection measuring 4.0 x 2.5 cm in the gracilis space adjacent to the adductor muscles with minimal thin rim enhancement. Multiple surgical clips are seen in the adductor muscles. There are no cortical erosions. No acute fracture. The hip joint space is normal. IMPRESSION: 1. 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 2. Cellulitis of the right medial thigh with 4.0 x 2.5 cm fluid collection in the gracilis space with thin rim enhancement. This likely represents a seroma with or without superinfection. Dictated by: Sada Perez M.D. The radiology attending physician has personally reviewed this study, and had reviewed and/or edited this written report and agrees with it. Electronically signed by: Santiago Kilpatrick M.D. Crispin Shen MD IM CT PROCEDURES Final Result * CT Femur Right W Contrast (12/10/2020 2:39 PM CDT) Anatomical Region Laterality Modality Lower Extremities Right Computed Tomog isidro 12/10/2020 3:45 PM CDT Impressions 12/10/2020 3:54 PM CDT 1. 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 2. ??Cellulitis of the right medial thigh with 4.0 x 2.5 cm fluid collection in the gracilis space with thin rim enhancement. This likely represents a seroma with or without superinfection. Dictated by: Sada Perez M.D. The radiology attending physician has personally reviewed this study, and had reviewed and/or edited this written report and agrees with it. Electronically signed by: Santiago Kilpatrick M.D. Narrative 12/10/2020 3:54 PM CDT EXAMINATION: 1.CT pelvis with contrast 2. ??CT femur right with contrast HISTORY: Cellulitis of right thigh drain. 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 ?? Technique: Transaxial images of the pelvis and right femur with multiplanar reconstructions are submitted for interpretation with intravenous contrast after the uneventful administration of 100 mL Opti-Ray 350 intravenous contrast. COMPARISON: CT pelvis 09/09/2020 FINDINGS: Pelvis: Redemonstrated are post surgical changes of interval anovaginal fistula flap ??repair with right gracilis rotational flap. ??There is mild postoperative stranding. ??No adjacent fluid collections are seen. There is a left lower quadrant diverting colostomy. ??There is a fibroid uterus. ??The adnexa are normal. ??The bladder is normal. ??The visualized loops of small and large bowel are normal. ??There is no pelvic or inguinal lymphadenopathy. No acute fracture. ??The hip joints are normal. ??There is mild degenerative disc disease of L5-S1. Right femur: There is an area of soft tissue stranding in the medial right thigh adjacent to the gracilis space extending inferiorly to the level of the posterior knee. ??There is a fluid collection measuring 4.0 x 2.5 cm in the gracilis space adjacent to the adductor muscles with minimal thin rim enhancement. ??Multiple surgical clips are seen in the adductor muscles. There are no cortical erosions. ??No acute fracture. ??The hip joint space is normal. Procedure Note Santiago Kilpatrick MD - 12/10/2020 EXAMINATION: 1.CT pelvis with contrast 2. CT femur right with contrast HISTORY: Cellulitis of right thigh drain. 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 Technique: Transaxial images of the pelvis and right femur with multiplanar reconstructions are submitted for interpretation with intravenous contrast after the uneventful administration of 100 mL Opti-Ray 350 intravenous contrast. COMPARISON: CT pelvis 09/09/2020 FINDINGS: Pelvis: Redemonstrated are post surgical changes of interval anovaginal fistula flap repair with right gracilis rotational flap. There is mild postoperative stranding. No adjacent fluid collections are seen. There is a left lower quadrant diverting colostomy. There is a fibroid uterus. The adnexa are normal. The bladder is normal. The visualized loops of small and large bowel are normal. There is no pelvic or inguinal lymphadenopathy. No acute fracture. The hip joints are normal. There is mild degenerative disc disease of L5-S1. Right femur: There is an area of soft tissue stranding in the medial right thigh adjacent to the gracilis space extending inferiorly to the level of the posterior knee. There is a fluid collection measuring 4.0 x 2.5 cm in the gracilis space adjacent to the adductor muscles with minimal thin rim enhancement. Multiple surgical clips are seen in the adductor muscles. There are no cortical erosions. No acute fracture. The hip joint space is normal. IMPRESSION: 1. 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 2. Cellulitis of the right medial thigh with 4.0 x 2.5 cm fluid collection in the gracilis space with thin rim enhancement. This likely represents a seroma with or without superinfection. Dictated by: Sada Perez M.D. The radiology attending physician has personally reviewed this study, and had reviewed and/or edited this written report and agrees with it. Electronically signed by: Santiago Kilpatrick M.D. Crispin Shen MD IMG CT PROCEDURES Final Result documented in this encounter Visit Diagnoses Diagnosis Post-operative pain Other acute postoperative pain Cellulitis of right upper extremity documented in this encounter Administered Medications Inactive Administered Medications - up to 3 most recent administrations Medication Order MAR Action Action Date Dose Rate Site ioversoL (OPTIRAY 350) syringe syringe 100 mL 100 mL, intravenous, Once in imaging, contrast, Starting on Sun12/10/20 at 1435, For 1 dose Given 12/10/2020 2:39 PM CDT 100 mL documented in this encounter Orders Medications Ordered That Max ht Not Have Been Administered Count Last Ordered Date First Ordered Date ioversoL (OPTIRAY 350) syrin ge syringe 100 mL 1 12/10/2020 documented in this encounter Care Teams Protein Specialist Relationship Specialty Start Date End Date Crispin Shen MD Surgeon Colon and Rectal Surgery 09/09/20 documented as of this encounter
--- OUTSIDE RECORDS SUMMARY | 2024-08-18 09:56 | XMS_ITS | Encounter Summary ---
Author Organization [facility] Address [address] [place] [address] Phone Care Team Providers Care Day Guard Name Role Phone Crispin Shen MD Unavailable [phone] Reason for Visit * Reason Onset Date Comments Confirmation 11/23/2020 Encounter Details Date Type Department Care Team (Late st Contact Info) Description 11/23/2020 Telephone [facility] Surgery [address] [facility] Advanced [facility] 8th [place] [address] [place] [address] Ana M Baig, A Confirmation [...] often do you attend chur ch or denominational services? 1 to 4 times per year 11/24/2020 Do you belong to any clubs o r organizations such as confucianism groups, [employer], [email or web address] or athletic groups, or school groups? 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 COVID Test: negative Medication held: NONE Prep: NPO after midnight. Antibiotics: not prescribed. Immunonutrition: taking and will complete today, purchased Ensure Surgery and will have completed 5days of immunonutrition. Shower: patient aware to use the night before and morning of procedure Gatorade/Powerade: patient will complete by 5:30 am Cysto/Stent placement: No Confirmed arrival time of 6:30 am at [facility], report to 3rd floor surgery registration. Patient was made aware of current visitor policy and verbalized understanding. documented in this encounter Plan of Treatment Not on file documented as of this encounter Visit Diagnoses Not on filedocumented in this encounter Care Teams Day Guard Relationship Specialty Start Date End Date Crispin Shen MD Surgeon Colon and Rectal Surgery 09/09/20 documented as of this encounter
--- OUTSIDE RECORDS SUMMARY | 2024-08-18 09:56 | XMS_ITS | Encounter Summary ---
Author Organization [facility] Healthcare Address [address] [place] [address] Care Team Providers Care Fine Unhairer Name Role Phone Crispin Shen MD Unavailable [phone] Encounter Details Date Type Department Care Team (Late st Contact Info) Description 11/24/2020 8:30 AM CDT - 11/24/2020 2:40 PM CDT Surgery [facility] Operating Room [address] [place] [address] Crispin Shen MD [address] [phone] [place] [address] GRACILIS FLAP REPAIR OF RECTOVAGINAL FISTULA Surgery Details Date/Time Status Location OR Service Patient Class Case Class Case Type Trauma Case? 11/24/2020 8:30 AM Posted [facility] 1 330 Colorectal Surgery Admit Elective Panel 1 Procedure LRB Anes Op Region Wound Class Comments GRACILIS FLAP REPAIR OF RECTOVAGINAL FISTULA N/A General Vagina Class IV - Dirty or Infected REVISION COLOSTOMY N/A General Abdomen Class IV - Dirty or Infected Panel 2 Procedure LRB Anes Op Region Wound Class Comments RT GRACILIS Muscle FLAP HARVEST for Rectrovaginal Fistula Repair N/A General Leg Upper Class II - Clean Contaminated Surgeon Surgeon Role Service Panel Cyndee Guidry MD PhD Primary Plastics 2 Horace Escoto MD Fellow Colorectal 1 Candice Tyler MD Resident - Assisting Plastics 2 Crispin Shen MD Primary Colorectal 1 Saha, Kurt Young MD Resident - Assisting Plastics 2 Case Notes 10/13 per resource nurse this is scheduled correctly KF documented in this encounter Social History Tobacco [...] How often do you attend chur or caodaism services? 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 Gender Identity Female 11/16/2020 2:58 PM CDT Sexual Orientation Straight 11/16/2020 2: 58 PM CDT documented as of this encounter Last Filed Vital Signs Vital Sign Reading Time Taken Comments Blood Pressure 122/91 11/24/2020 2:25 PM CDT Pulse 98 11/24/2020 2:25 PM CDT Temperature 36.7 ??C (98.1 ??F) 11/24/2020 2:25 PM CD T Respiratory Rate 12 11/24/2020 2:25 PM CDT Oxygen Saturation 96% 11/24/2020 2:25 PM CDT Inhaled Oxygen Concentration - - Weight - - Height - - Body Mass Index - - documented in this encounter Discharge Summaries * Darline Sheth MD - 11/26/2020 10:52 AM CDT Inpatient Discharge Summary BRIEF OVERVIEW Admitting Provider: Crispin Shen MD Discharge Provider: Crispin Shen MD Primary Care Physician at Discharge: Moncio Reynoso MD [phone] Admission Date: 11/24/2020 Discharge Date: 11/26/2020 Admission Location: [facility] Problems/Diagnoses: Principal Problem: Rectovaginal fistula Resolved Problems: No resolved hospital problems. DETAILS OF HOSPITAL STAY Presenting Problem/History of Present Illness: The patient is a 49 y.o. 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 placed a seton a couple of weeks ago. She is being admitted for definitive repair. She does not have any issues with continence. Hospital Course: The patient underwent gracilis flap repair of rectovaginal fistula w/ minor colostomy revision on 11/24 with plastic surgery and colorectal surgery. Two drains were placed, R thigh and perineal. She was admitted post-op for pain control, and to await return of bowel function. On POD 1, the patient had return of bowel function. She was discharged on POD 2 after drain teaching. She was disccharged with both FE drains (medial R thigh, and perineum) in place, as well as heart in place. She will follow up with plastic surgery and colorectal surgery on 12/03. ?? Active Issues Requiring Follow-up: Test Results Pending at Discharge: Operative Procedures Performed: Procedure(s): GRACILIS FLAP REPAIR OF RECTOVAGINAL FISTULA REVISION COLOSTOMY RT GRACILIS Muscle FLAP HARVEST for Rectrovaginal Fistula Repair Other Procedures: Pertinent Test Results: Discharge Details Physical Exam at Discharge: Discharge Condition: stable Pulse: 76 Resp: 16 BP: 104/57 Temp: 36.9 ??C (98.4 ??F) Weight: 101.2 kg (223 lb) Pertinent Exam Findings at Discharge: same as last progress note Discharge Disposition: Code Status at Discharge: full code Discharge Instructions: Activity Instructions Discharge Activity: Driving restrictions -Do not drive for 2 weeks or while taking pain medications. Discharge Activity: Lifting restrictions -Do NOT lift greater than 10 pounds until instructed to do so by physician Discharge Activity: Stairs -You may climb stairs Discharge Activity: Walking -You may walk as tolerated. Diet Instructions Adult Discharge Diet Diet Type: Return to previous diet Other Instructions Call provider for: increased temperature -Temperature greater than 101 degrees F Call provider for: nausea, vomiting, diarrhea -If you have persistent nausea, vomiting or diarrhea (more than 10 stools per day) that does not stop Call provider for: redness, tenderness, or signs of infection (pain, swelling, redness, odor or green/yellow discharge around incision site) Call provider for: severe uncontrolled pain Call provider for: any other concerns or questions [phone] Call provider if: you feel dizzy, very tired or like you may faint Care Instructions: Drain care -Cover your drain with a plastic dressing while showering -Cleanse exit site of drain daily with peroxide. Reapply dry dressing -Empty and record drain amount twice daily Care Instructions: Incisions -Keep incisions clean and dry Care Instructions: No tub baths -No tub baths, whirlpools or swimming until your provider says it's ok. Care Instructions: Shower -You may shower Colostomy patients -Notify MD office if no output for greater than 2 days -Notify MD office if prolonged abdominal pain, persistent nausea or vomiting, and abdominal distention -Inability to maintain a pouch seal for greater than 24 hours -Skin irritation that does not heal in 1-2 pouch changes Ileostomy patients to monitor stoma output -Notify MD office if output greater than 1200 ml in 24 hours -Notify MD office if NO output for 8 hours or greater -Notify MD office if prolonged abdominal pain, persistent nausea or vomiting, and abdominal distention -Notify MD of inability to maintain a pouch seal for greater than 24 hours -Notify MD of skin irritation that does not heal in 1-2 pouch changes Discharge Medications: Current Medications TAKE these medications ascorbic acid 1,000 mg tablet Take 1,000 mg by mouth nightly Commonly known as: VITAMIN C cholecalciferol 2000 unit capsule Take 2,000 Units by mouth nightly For: low vitamin D levels Commonly known as: VITAMIN D-3 LORazepam 0.5 mg tablet Take 0.5 mg by mouth 2 (two) times a day as needed for anxiety Commonly known as: ATIVAN lysine 1,000 mg tablet Take 1,000 mg by mouth nightly mirtazapine 15 mg tablet Take 15 mg by mouth nightly For: depression Commonly known as: REMERON multivitamin capsule Take 1 capsule by mouth nightly For: treatment to prevent vitamin deficiency omega-3 fatty acids-fish oil 300-1,000 mg capsule Take 1 g by mouth nightly oxyCODONE 5 mg immediate release tablet Take 1 tablet (5 mg total) by mouth every 4 (four) hours as needed for pain For: pain Commonly known as: ROXICODONE * sertraline 25 mg tablet Take 25 mg by mouth every morning For: Depression Commonly known as: ZOLOFT * sertraline 50 mg tablet Take 50 mg by mouth nightly Commonly known as: ZOLOFT sodium chloride 0.65 % nasal spray Administer 1 spray into each nostril as needed Commonly known as: OCEAN turmeric root extract 500 mg capsule Take 500 mg by mouth nightly zinc 50 mg tablet Take 50 mg by mouth nightly * This list has 2 medication(s) that are the same as other medications prescribed for you. Read the directions carefully, and ask your doctor or other care provider to review them with you. Outpatient Follow-Up: Future Appointments Date Time Provider Department Center 12/03/2020 12:30 PM Crispin Shen MD [facility] 12/03/2020 1:55 PM Cyndee Guidry MD PhD [facility] 12/21/2020 10:45 AM Crispin Shen MD C/[facility] Cosigned by Crispin Shen MD at 11/29/2020 11:04 AM CDT documented in this encounter Medications at [...] as needed for pain 15 tablet 11/25/2020 12/14/2020 documented in this encounter Discharge Disposition Disposition Code Departure Means Destination Discharge to home or self care documented in this encounter Progress Notes * June Galeano RN - 11/26/2020 11:30 AM CDT 11/24/20 1630 Discharge Summary Chart reviewed For Medical Necessity Does patient have a planned readmission to hospital planned? No Equipment/Provider Needs -- Discharge Additional Assistance Does the patient need discharge transport arranged? No Post Discharge Care Provider Post Discharge Care Plan DC Summary has been faxed to next level of care provider (see Follow Up Providers) Patient to discharge to home with significant other, Richelle Coto [phone] to provide transportation. sent several referral for home health for drain care but an accepting agency was not able to be established. * Darline Sheth MD - 11/26/2020 10:18 AM CDT [facility] Daily Progress Note Colon and Rectal Surgery PATIENT NAME: Belem Smith : 1970 ADMIT DATE: 11/24/2020 6:30 AM LOS: 2 Subjective CHIEF COMPLAINT: Rectovaginal fistula INTERVAL HISTORY: No acute events overnight. Hemodynamically stable and afebrile. Pt w/ 650cc colostomy output. Perineal drain w/ 15cc, R thigh drain w/ 100cc output. UOP 7975. Patient reports feeling well. Denies nausea, bloating, or uncontrolled pain. Feel competent in caring for JPs and Heart catheter at home. Objective MEDICATIONS: Scheduled: acetaminophen, 1,000 mg, oral, Q6H CARO enoxaparin, 40 mg, subcutaneous, Daily-2100 gabapentin, 300 mg, oral, Q12H CARO ketorolac, 15 mg, intravenous, Q8H CARO Followed by [START ON 11/27/2020] ibuprofen, 600 mg, oral, Q8H CARO sertraline, 50 mg, oral, Nightly sodium chloride 0.9%, 0.5-20 mL, intra-catheter, Q8H CARO Infusions: PRN: LORazepam ??? ondansetron ??? oxyCODONE ??? prochlorperazine ??? sodium chloride 0.9% VITALS: 24hr Min/Max: Temp Min: 36.8 ??C (98.2 ??F) Max: 37.1 ??C (98.8 ??F) Pulse Min: 76 Max: 86 BP Min: 95/58 Max: 111/64 Resp Min: 16 Max: 20 SpO2 Min: 94 % Max: 98 % Most Recent: Vitals: 11/25/20 2110 11/26/20 0110 11/26/20 0555 11/26/20 0806 BP: 102/53 95/58 107/59 104/57 BP Location: Right arm Patient Position: Lying Pulse: 76 82 79 76 Resp: 20 18 18 16 Temp: 37 ??C (98.6 ??F) 36.9 ??C (98.4 ??F) 36.8 ??C (98.2 ??F) 36.9 ??C (98.4 ??F) TempSrc: Oral SpO2: 94% 96% 96% 94% Weight: Height: Intake/Output Summary (Last 24 hours) at 11/26/2020 1018 Last data filed at 11/26/2020 0600 Gross per 24 hour Intake 1800 ml Output 8210 ml Net -6410 ml PHYSICAL EXAM: Constitutional: NAD, well developed, well nourished. A&O x4. HEENT: PERRL, EOMI, anicteric. Lungs: Unlabored breathing. Trachea midline. Cardiovascular: Regular rate. No JVD. GI: Abdomen soft, non-tender, non-distended. Ostomy: [place], stool present. Wound: Incision clean, dry, intact with dry dressing intact. No erythema/swelling/drainage noted. Drains: JPs with serosanguinous output. Heart intact with clear, yellow urine present. Skin: No new rashes, lesions or bruises Extremities: Normal without edema or cyanosis Neurologic: Non-focal, CNII-XII grossly intact Psychiatric: Normal affect and mood. LAB/ RADIOLOGY/ DIAGNOSTIC REVIEW: Chem/LFT Lab History Some values may be hidden. Unless noted otherwise, only the newest values recorded on each date aredisplayed. Labs-Chem/LFT Latest Ref Range 09/09/20 11/22/20 11/24/20 11/25/20 Sodium 135 - 145 mmol/L 143 136 138 Creatinine 0.60 - 1.10 mg/dL 0.82 0.89 0.89 CrCl- Actual Body Weight (Cockcroft-Gault) 121.8 129.7 122.1 122.1 Hematology Lab History Some values may be hidden. Unless noted otherwise, only the newest values recorded on each date aredisplayed. Labs - Hematology Latest Ref Range 11/22/20 11/24/20 11/25/20 WBC 3.8 - 9.9 K/cumm 7.8 15.2 (A) 9.4 Total Hb, POC 11.9 - 15.5 g/dL 13.6 11.2 (A) 10.9 (A) Hct 35.6 - 45.5 % 40.1 33.8 (A) 33.6 (A) Plt 150 - 400 K/cumm 256 221 180 (A) Abnormal value I have reviewed the laboratory results. ASSESSMENT/ PLAN: Belem Smith is a 49 y.o. female with Rectovaginal fistula, status postGRACILIS FLAP REPAIR OF RECTOVAGINAL FISTULA REVISION COLOSTOMY - F/up plastics recs: will go home w/ plastics drain f/up w/ (appt made) - drain teaching today - Will see on December [facility] - Lovenox for DVT - PT/OT, OOB - DC today Darline Sheth MD. Cosigned by Crispin Shen MD at 11/29/2020 12:12 PM CDT * Chrissy Madera MD - 11/26/2020 7:06 AM CDT Plastic Surgery Daily Progress PRS resident contact 7a-5p: [phone] Belem Smith : 1970 Subjective Interval History: No acute events overnight. AFVSS. Pain controlled. Ambulating without issue. WBC 9.4 (15.2), Hgb 10.9 (11.2). FE thigh 100 (15) FE perineal 15 (20) Objective Recent Vitals(24hr Range): Vitals: 11/26/20 0555 BP: 107/59 Pulse: 79 Resp: 18 Temp: 36.8 ??C (98.2 ??F) SpO2: 96% I and Os: I/O last 3 completed shifts: In: 4930 [P.O.:4000; I.V.:930] Out: 16664 [Urine:50739; Drains:145; Stool:650] No intake/output data recorded. Meds: Current Facility-Administered Medications: ??? acetaminophen (TYLENOL) tablet 1,000 mg, 1,000 mg, oral, Q6H [facility] Kahler, MD, 1,000 mg at 11/26/20 0554 ??? enoxaparin (LOVENOX) syringe 40 mg, 40 mg, subcutaneous, Daily-2099, Horace Escoto MD, 40 mg at 11/25/202100 ??? gabapentin (NEURONTIN) capsule 300 mg, 300 mg, oral, Q12H Jevon ELIZONDO Gregory Kahler, MD, 300 mg at 11/25/202100 ??? ketorolac (TORADOL) injection 15 mg, 15 mg, intravenous, Q8H CARO, 15 mg at 11/26/20 0554 FOLLOWED BY [START ON 11/27/2020] ibuprofen (ADVIL,MOTRIN) tablet 600 mg, 600 mg, oral, Q8H CARO, Horace Escoto MD ??? LORazepam (ATIVAN) tablet 0.5 mg, 0.5 mg, oral, BID PRN, Horace Escoto MD ??? ondansetron (ZOFRAN) injection 4 mg, 4 mg, intravenous, Q6H PRN, Horace Escoto MD ??? oxyCODONE (ROXICODONE) tablet 5 mg, 5 mg, oral, Q4H PRN, Horace Escoto MD, 5 mg at 11/25/20 2100 ??? prochlorperazine (COMPAZINE) injection 10 mg, 10 mg, intravenous, Q6H PRN, Horace Escoto MD ??? sertraline (ZOLOFT) tablet 50 mg, 50 mg, oral, Nightly, Emmanuel Banks MD, 50 mg at 11/25/202100 ??? sodium chloride 0.9% flush 0.5-20 mL, 0.5-20 mL, intra-catheter, Q8H CARO, Horace Escoto MD, 10 mL at 11/26/20 0556 ??? sodium chloride 0.9% flush 0.5-20 mL, 0.5-20 mL, intra-catheter, PRN, Horace Escoto MD Facility-Administered Medications Ordered in Other Encounters: ??? diatrizoate meglumine-diatrizoate sodium (GASTROGRAFIN/-GASTROVIEW) 66-10 % solution 60 mL, 60 mL, oral, Once in imaging, Crispin Shen MD Physical Exam: General: NAD, resting comfortably Neurologic: A&Ox4, nonfocal, grossly intact HEENT: NC/AT, MMM CV: RRR Respiratory: NLB on RA Abdomen: soft, nontender, nondistended Wound: medial thigh incision well-approximated, c/d/i, surrounding ecchymoses. Thigh soft, no palpable fluid collection. JPx2 serosanguinous. Extremities: WWP, no c/c/e Psych: appropriate mood and affect Lab/Radiology/Diagnostic Review: Chem/LFT Lab History Some values may be hidden. Unless noted otherwise, only the newest values recorded on each date aredisplayed. Labs-Chem/LFT Latest Ref Range 09/09/20 11/22/20 11/24/20 11/25/20 Sodium 135 - 145 mmol/L 143 136 138 Creatinine 0.60 - 1.10 mg/dL 0.82 0.89 0.89 CrCl- Actual Body Weight (Cockcroft-Gault) 121.8 129.7 122.1 122.1 Hematology Lab History Some values may be hidden. Unless noted otherwise, only the newest values recorded on each date aredisplayed. Labs - Hematology Latest Ref Range 11/22/20 11/24/20 11/25/20 WBC 3.8 - 9.9 K/cumm 7.8 15.2 (A) 9.4 Total Hb, POC 11.9 - 15.5 g/dL 13.6 11.2 (A) 10.9 (A) Hct 35.6 - 45.5 % 40.1 33.8 (A) 33.6 (A) Plt 150 - 400 K/cumm 256 221 180 (A) Abnormal value Assessment/Plan ASSESSMENT Belem Smith is a 49 y.o. female s/p anovaginal fistula repair (CRS) and pedicled gracilis coverage 11/24. Doing well. PLAN [ ] Abx: Per primary [ ] Activity/Positioning: Minimize RIGHT leg abduction, pillow between legs, logroll to stand, no prolonged sitting on bottom [ ] Anticoagulation: DVT ppx [ ] Consults: CRS primary [ ] Diet: per primary [ ] Drains: FE x2 -- RIGHT medial thigh (PRS), perineum (CRS). If discharges today, will keep FE drain. [ ] Dressing: RIGHT medial thigh - open to air [ ] Labs/Monitoring: Per primary [ ] Pain: Per primary [ ] Therapy: PT/OT [ ] Dispo: Per primary, ok for discharge from PRS perspective. Follow up: with Dr. Guidry on 12/03 [facility], [address], call [phone] to schedule Chrissy Madera MD 11/26/2020 If you have questions, please check Amion to find the resident responsible for this patient's care.If uncertain, please call: Week 7AM - 5PM please call the Plastic Surgery Consult Pager [phone] to be directed to thecorrect Plastic Surgery resident. Weeknights 5PM - 7AM, All day on Weekends, All day on Holidays please call the Defence Intelligence Analyst to find theOn Call Plastic Surgery resident Cosigned by Cyndee Guidry MD PhD at 11/26/2020 5:05 PM CDT * Margot Barriga, DPT - 11/25/2020 1:03 PM CDT Physical Therapy Physical Therapy Initial Assessment NOTE: This is a summary note for the lala assessments completed during the evaluation session. For full details, review chart review for all flowsheets documented on by this physical therapist on thisdate. Vital signs documented in vital signs flowsheet. Assessment Assessment Prognosis: Good Plan Plan Plan : Discharge, If this is the last note, consider this the discharge summary PT Recommendation and Plan Recommendation/Plan PT Recommendation/Plan: Home with family PT Frequency: One time visit (Discharge from this service) PT - OK to Discharge: Yes PT Evaluation Complete: Yes General Information General Chart Reviewed: Yes Session Type: Evaluation PT Received On: 11/25/20 Safe Environment: Arm Band Checked, Call Light within Reach, Notified RN, Patient found in Supine, Overbed Table within Reach(Pt left supine in bed with call light ) Subjective: Agreeable to Therapy Family/Caregiver Present: No Physical Therapy-Patient Goal: Pt denied any further goals related to skilled PT in the acute care setting Prior Function Prior Function Level of [place]: Independent functional transfers, Independent with ambulation Lives With: Alone Receives Help From: Family, Spouse/Significant other(time checker assist until 12/12) Fall within the last 6 months: No Home Living Home Living Type of Home: House Home Layout: One level Home Access: Stairs to enter with rails Entrance Stairs-Rails: Left Entrance Stairs-Number of Steps: 2 Home Mobility Equipment: None Precautions Precautions Precautions: Fall risk, Safety Precaution Handout Issued: No Precaution Comments: Per order, Minimize R hip abduction, pillows between legs, log roll to stand, no prolonged sitting. Pt verbally educated on precautions prior to mobility; pt verbalized understanding and maintained throughout session Pain Pain Assessment Pain Assessment: 0-10 Pain Score: 5 - Moderate pain Pain Type: Surgical pain Pain Location: Leg Pain Orientation: Right Pain Interventions: (Pt reported RN Marcello just gave her pain meds ) Cognition Cognition Arousal/Alertness: Alert Orientation : Oriented X4 (person, place, time, situation) Following Commands: Follows all commands and directions without difficulty 6 Clicks Basic Mobility - 6 Click How much difficulty does the patient have: Turning over in bed: None How much difficulty does the patient currently have: Sitting down 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 up from a chair witharms?: None How much difficulty does the patient have: Moving from lying on back to sitting on the side of the bed?: None How much difficulty does the patient have: Moving to and from a bed to a chair including wheelchair?: None How much help does the patient currently need: Walk in hospital room?: None How much help from another person does the patient currently need: Climbing 3-5 steps with a railing?: A little Total 6 Click Score (range 6-24): 23 Score Interpretation: 23 Bed Mobility Bed Mobility Bed Mobility: Yes Bed Mobility 1 Bed Mobility Comments 1: Pt performed bed mobility thru log roll performed sidelying L to semi-prone to standing with distant supervision for cues for technique. Transfers Transfers Transfer: Yes Balance Static Standing Balance Static Standing-Balance Support: No upper extremity supported Static Standing-Standing Surface: Floor Static Standing-Level of Assistance: Independent Ambulation Ambulation Functional Ambulation Category: Ambulator, independent multiple surfaces, including stairs Ambulation: Yes Ambulation 1 Distance (ft) 1: 300 Surface 1: Level tile Device 1: No device Assistance 1: Independent Stairs Stairs Stairs: Yes Stairs Number of Stairs 1: 2 Rails 1: Left Device 1: No device Assistance 1: Distant supervision, Minimal verbal Cues Stairs: Requires assist with 1: (Cues for safety; non-reciprocal pattern ) Curbs RLE Assessment RLE Assessment RLE Assessment: (NT) LLE Assessment LLE Assessment LLE Assessment: Within Functional Limits Equipment Used Equipment Use Equipment Use Comments: Gait belt not used Other Comments Other Comments Other PT Comments: Pt denied any further concerns related to skilled PT in the acute care setting. Pt is dischrged from PT; please re-refer if there is a change in status or further need develops PT Goals Multi-Disciplinary Problems (from Physical Therapy) Active Problems Not on file For questions, please review the treatment team and contact the PT or PILER currently assigned to this patient. If a physical therapy clinician is not assigned to this patient, please call [phone]. * Nubia Bradley OT - 11/25/2020 9:45 AM CDT Occupational Therapy Occupational Therapy Initial Assessment NOTE:This is a summary note for the lala assessments completed during the evaluation session. For full details, review chart review for all flowsheets documented on by this Occupational Therapist on this date. Vital signs documented in vital signs flowsheet. Assessment Assessment Prognosis: Good Problem List: Decreased balance, Decreased functional mobility, Decreased ADL independence, Decreased IADL independence, Other (Comment)(post-surgical precautions.) Barriers to Discharge: Current Mobility Status, Other (Comment)(fall risk) Plan Plan Plan: Plan of care initiated, If this is the last note, consider this the discharge summary OT Recommendation and Plan Recommendation/Plan OT Recommendation: Home with 24 hour supervision, Home with family OT Frequency: 3-5x/wk Comments: Pt. seen for initial OT eval this date. Upon room entry, pt. presented sitting upright jess recliner in the reclined position. Per plastics note dated 11/24, pt. to follow the following precautions: minimize right leg abduction, pillow between legs, logroll to stand, no prolonged sitting onbottom. Pt. educated on precautions and assisted pt. out of recliner immediately. Notified RN, MD Dr. Gaytan, and therapy supervisor sulfuric acid plant Mariama Escamilla Per phone conversation with Dr. Lukas MD, pt. can sit in beach chair position, but avoid prolonged sitting to protect flap. It is okay if the pt. needs to briefly go to the sitting position for a transfer, but nothing more than that. The pt. can sit on a commode as long as weight is offloaded. The pt. can sit in a car as long as the car seat is reclined as far back as possible and weight is offloaded onto the left side. Pt. reports that for toileting, she plans to toilet in the shower in standing once heart catheter is removed. Educated pt. on LE dressing techniques lying supine in bed and use of AE for LE dressing to maintain RLE precautions. Pt. tri aled baling machine tender to assist with donning underwear this date with mod verbal cueing for sequencing. Educated pt. on use of sock aid, however, pt. reports that she will have her daughter to assist or abstain from wearing socks. Pt. educated on where to purchase baling machine tender; pt. verbalized understanding. Pt. left lying supine in bed. Pt. with no further questions this date. Treatment/Interventions: ADL/IADL retraining, Balance Training, Bed mobility, Compensatory technique education, Endurance training, Functional activity, Functional mobility training, Functional transfer training, Strengthening, Therapeutic activity, Therapeutic exercise, Transfer training OT - Next Appointment: 11/26/20 OT - OK to Discharge: No OT Evaluation Complete: Yes General Information General Chart Reviewed: Yes Session Type: Evaluation OT Received On: 11/25/20 Safe Environment: Arm Band Checked, Call Light within Reach, Notified RN, Overbed Table within Reach, Bed in Lowest Position with Wheels locked, Bed rails up per protocol(Pt. left lying supine in bed.) Subjective: Agreeable to Therapy Subjective Comment: Pt. stated, I'll get up and brush my teeth. Family/Caregiver Present: No Occupational Therapy-Patient Goal: Pt. did not state specific goal but was agreeable to OT POC. Precautions Precautions Precautions: Other (Comment)(see comments, plastics precautions.) Precaution Comments: Per plastics, precautions as follows: minimize Right leg abduction, pillow between legs, logroll to stand, no prolonged sitting on bottom, beach chair posotion OK. Educated pt. on precautions prior to engaging in mobility this date. Pt. found sitting in a recliner in a reclinedposition upon room entry; educated pt. on precautions and transferred pt. out of chair immediately.Pt. verbalized understanding. During log roll to stand, pt. required min verbal cueing to offload weight from R side. PPE worn by OT: face shield, surgical mask, gloves. Home Living Home Living Type of Home: House Home Layout: One level Home Access: Stairs to enter with rails Entrance Stairs-Rails: Left Entrance Stairs-Number of Steps: 2 Bathroom Shower/Tub: Walk-in shower with threshold Bathroom Toilet: Standard Bathroom Equipment: Grab bars in shower/tub, Hand-held shower Home Mobility Equipment: None Prior Function Prior Function Level of [place]: Independent with ADLs, Independent functional transfers, Independent with ambulation, Independent with homemaking with ambulation Lives With: Alone Receives Help From: Family, Spouse/Significant other(fiance, daughter, FT assist until 12/12) Driving: Yes ADL Assistance: Independent Instrumental ADL (IADL) Assistance: Independent 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 no prolonged sitting). Pain Pain Assessment Pain Assessment: 0-10 Pain Score: 4 Pain Location: Leg Pain Orientation: Right Pain Interventions: RN Notified(CHRIS Armendariz aware) Cognition Cognition Overall Cognitive Status: Within Functional Limits Arousal/Alertness: Alert, Appropriate responses to stimuli Attention Span: Appears intact, Age appropriate Memory: Appears intact Current communication: Appears Intact Orientation : Oriented X4 (person, place, time, situation) Following Commands: Follows all commands and directions without difficulty Safety Judgment: Good awareness of safety precautions Awareness of Errors: Good awareness of errors made Insight: Fully aware of deficits Compliance/Behavior: Easy to engage 6 Clicks Balance Static Standing Balance Static Standing-Balance Support: No upper extremity supported Static Standing-Standing Surface: Floor Static Standing-Level of Assistance: Distant supervision Static Standing-Comment/# of Minutes: for safety Dynamic Standing Balance Dynamic Standing-Balance Support: No upper extremity supported Dynamic Standing-Balance: Forward lean, Reaching for objects, Reaching across midline Dynamic Standing-Standing Surface: Floor Dynamic Standing-Level of Assistance: Close supervision Dynamic Standing-Comments: for safety during standing grooming ADL Transfers Transfers Transfer: Yes Transfer 1 Transfer From 1: (supine) Transfer Type 1: To and from Transfer to 1: Stand Technique 1: (log roll to stand) Transfer Device 1: No device Transfer Level of Assistance 1: Contact Guard Assist Trials/Comments 1: for safety; min verbal cueing for sequencing of transfer. Bed Mobility Bed Mobility Bed Mobility: Yes(log roll to stand, see transfer section.) RUE Assessment RUE Assessment RUE Assessment: Exceptions to WFL(AROM WFL, strength at least 4/5 functionally.) LUE Assessment LUE Assessment LUE Assessment: Exceptions to WFL(AROM WFL, strength at least 4/5 functionally.) Other Comments Other Comments Comments: Pt. seen for initial OT eval this date. Upon room entry, pt. presented sitting upright jess recliner in the reclined position. Per plastics note dated 11/24, pt. to follow the following precautions: minimize right leg abduction, pillow between legs, logroll to stand, no prolonged sitting onbottom. Pt. educated on precautions and assisted pt. out of recliner immediately. Notified RNMD Dr. Gaytan, and therapy supervisor sulfuric acid plant Mariama Escamilla Per phone conversation with Dr. Lukas MD, pt. can sit in beach chair position, but avoid prolonged sitting to protect flap. It is okay if the pt. needs to briefly go to the sitting position for a transfer, but nothing more than that. The pt. can sit on a commode as long as weight is offloaded. The pt. can sit in a car as long as the car seat is reclined as far back as possible and weight is offloaded onto the left side. Pt. reports that for toileting, she plans to toilet in the shower in standing once heart catheter is removed. Educated pt. on LE dressing techniques lying supine in bed and use of AE for LE dressing to maintain RLE precautions. Pt. tri aled baling machine tender to assist with donning underwear this date with mod verbal cueing for sequencing. Educated pt. on use of sock aid, however, pt. reports that she will have her daughter to assist or abstain from wearing socks. Pt. educated on where to purchase baling machine tender; pt. verbalized understanding. Pt. left lying supine in bed. Pt. with no further questions this date. OT Goals Multi-Disciplinary Problems (from Occupational Therapy) Active Problems Problem: Dressings Lower Extremities Start Date: 11/25/20 Goal Start Date End Date STG - Patient to complete lower body dressing 11/25/20 -- Goal Details: With CGA using AE PRN. Problem: Precautions Start Date: 11/25/20 Goal Start Date End Date STG - Patient will demonstrate precautions consistently during ADL tasks/functional mobility. 11/25/20 -- Problem: OT Misc Start Date: 11/25/20 Goal Start Date End Date OT LTG - Misc 1 11/25/20 -- Goal Details: Pt. Will perform all ADLs with mod I using AE/adaptive device PRN. Goal Start Date End Date OT STG - Misc 1 11/25/20 -- Goal Details: Pt. Will engage in log roll to stand transfer with mod I to maintain precautions during functional transfers out of bed in preparation for ADLs. For questions, please review the treatment team and contact the occupational therapist currently assigned to this patient. If an occupational therapist is not assigned to this patient, please call [phone]. * Leticia Mcleod NP - 11/25/2020 8:56 AM CDT [facility] Daily Progress Note Colon and Rectal Surgery PATIENT NAME: Belem Smith : 1970 ADMIT DATE: 11/24/2020 6:30 AM LOS: 1 Subjective CHIEF COMPLAINT: Rectovaginal fistula INTERVAL HISTORY: No acute events overnight. Hemodynamically stable and afebrile. ARBF. Patient reports feeling well. Denies nausea, bloating, or uncontrolled pain. Feel competent in caring for JPs and Heart catheter at home. Objective MEDICATIONS: Scheduled: acetaminophen, 1,000 mg, oral, Q6H CARO enoxaparin, 40 mg, subcutaneous, Daily-2100 gabapentin, 300 mg, oral, Q12H CARO ketorolac, 15 mg, intravenous, Q8H CARO Followed by [START ON 11/27/2020] ibuprofen, 600 mg, oral, Q8H CARO sertraline, 50 mg, oral, Nightly sodium chloride 0.9%, 0.5-20 mL, intra-catheter, Q8H CARO Infusions: PRN: LORazepam ??? ondansetron ??? oxyCODONE ??? prochlorperazine ??? sodium chloride 0.9% VITALS: 24hr Min/Max: Temp Min: 36.2 ??C (97.2 ??F) Max: 37 ??C (98.6 ??F) Pulse Min: 86 Max: 121 BP Min: 97/51 Max: 125/73 Resp Min: 8 Max: 24 SpO2 Min: 94 % Max: 100 % Most Recent: Vitals: 11/24/20 1935 11/24/20 2306 11/25/20 0428 11/25/20 0900 BP: 102/59 97/51 102/64 103/55 BP Location: Right arm Right arm Right arm Patient Position: HOB 30 degrees HOB 30 degrees Pulse: 87 88 86 87 Resp: 16 19 Temp: 37 ??C (98.6 ??F) 36.4 ??C (97.5 ??F) 36.9 ??C (98.4 ??F) 36.8 ??C (98.2 ??F) TempSrc: Oral Oral Oral Oral SpO2: 100% 98% 100% Weight: 101.2 kg (223 lb) Height: 177.8 cm (5' 10 ) Intake/Output Summary (Last 24 hours) at 11/25/2020 0940 Last data filed at 11/25/2020 0900 Gross per 24 hour Intake 3730 ml Output 4520 ml Net -790 ml PHYSICAL EXAM: Constitutional: NAD, well developed, well nourished. A&O x4. HEENT: PERRL, EOMI, anicteric. Lungs: Unlabored breathing. Trachea midline. Cardiovascular: Regular rate. No JVD. GI: Abdomen soft, non-tender, non-distended. Ostomy: [place], no stool/flatus present. Wound: Incision clean, dry, intact with dry dressing intact. No erythema/swelling/drainage noted. Drains: JPs with serosanguinous output. Heart intact with clear, yellow urine present. Skin: No new rashes, lesions or bruises Extremities: Normal without edema or cyanosis Neurologic: Non-focal, CNII-XII grossly intact Psychiatric: Normal affect and mood. LAB/ RADIOLOGY/ DIAGNOSTIC REVIEW: Chem/LFT Lab History Some values may be hidden. Unless noted otherwise, only the newest values recorded on each date aredisplayed. Labs-Chem/LFT Latest Ref Range 09/09/20 11/22/20 11/24/20 Sodium 135 - 145 mmol/L 143 136 Creatinine 0.60 - 1.10 mg/dL 0.82 0.89 CrCl- Actual Body Weight (Cockcroft-Gault) 121.8 129.7 122.1 Hematology Lab History Some values may be hidden. Unless noted otherwise, only the newest values recorded on each date aredisplayed. Labs - Hematology Latest Ref Range 11/22/20 11/24/20 WBC 3.8 - 9.9 K/cumm 7.8 15.2 (A) Total Hb, POC 11.9 - 15.5 g/dL 13.6 11.2 (A) Hct 35.6 - 45.5 % 40.1 33.8 (A) Plt 150 - 400 K/cumm 256 221 (A) Abnormal value I have reviewed the laboratory results. ASSESSMENT/ PLAN: Belem Smith is a 49 y.o. female with Rectovaginal fistula, status postGRACILIS FLAP REPAIR OF RECTOVAGINAL FISTULA REVISION COLOSTOMY - acute pain control - dry dressing to incision - Lovenox for DVT - PT/OT, OOB - ARBF - IS Leticia Mcleod SENIOR SUSTAINABILITY CONSULTANT-BC Cosigned by Crispin Shen MD at 11/29/2020 12:12 PM CDT * Chrissy Madera MD - 11/25/2020 7:29 AM CDT Plastic Surgery Daily Progress [facility] resident contact 7a-5p: [phone] Belem Smith : 1970 Subjective Interval History: No acute events overnight. AFVSS. Pain controlled. Ambulating without issue. WBC 15.2 (7.8), Hgb 11.2 (13.6). FE thigh 15 FE perineal 20 Objective Recent Vitals(24hr Range): Vitals: 11/25/20 0428 BP: 102/64 Pulse: 86 Resp: 20 Temp: 36.9 ??C (98.4 ??F) SpO2: 98% I and Os: I/O last 3 completed shifts: In: 4230 [P.O.:1900; I.V.:2330] Out: 4090 [Urine:3980; Drains:35; Blood:75] No intake/output data recorded. Meds: Current Facility-Administered Medications: ??? acetaminophen (TYLENOL) tablet 1,000 mg, 1,000 mg, oral, Q6H CAROJevon Gregory Kahler, MD, 1,000 mg at 11/25/20429 ??? enoxaparin (LOVENOX) syringe 40 mg, 40 mg, subcutaneous, Daily-2100, Horace Escoto MD, 40 mg at 11/24/202057 ??? gabapentin (NEURONTIN) capsule 300 mg, 300 mg, oral, Q12H CAROJevon Gregory Kahler, MD, 300 mg at 11/24/202057 ??? HYDROmorphone (DILAUDID) injection 0.2 mg, 0.2 mg, intravenous, Q4H PRN, Horace Escoto MD, 0.2 mg at 11/25/20435 ??? ketorolac (TORADOL) injection 15 mg, 15 mg, intravenous, Q8H CARO, 15 mg at 11/25/20429 FOLLOWED BY [START ON 11/27/2020] ibuprofen (ADVIL,MOTRIN) tablet 600 mg, 600 mg, oral, Q8H [facility], Horace Escoto MD ??? LORazepam (ATIVAN) tablet 0.5 mg, 0.5 mg, oral, BID PRN, Horace Escoto MD ??? ondansetron (ZOFRAN) injection 4 mg, 4 mg, intravenous, Q6H PRN, Horace Escoto MD ??? oxyCODONE (ROXICODONE) tablet 5 mg, 5 mg, oral, Q4H PRN, Horace Escoto MD, 5 mg at 11/25/20 0135 ??? prochlorperazine (COMPAZINE) injection 10 mg, 10 mg, intravenous, Q6H PRN, Horace Escoto MD ??? sertraline (ZOLOFT) tablet 50 mg, 50 mg, oral, Nightly, Emmanuel Banks MD ??? sodium chloride 0.9% flush 0.5-20 mL, 0.5-20 mL, intra-catheter, Q8H CARO, Horace Escoto MD, 10 mL at 11/25/20 0436 ??? sodium chloride 0.9% flush 0.5-20 mL, 0.5-20 mL, intra-catheter, PRN, Horace Escoto MD Facility-Administered Medications Ordered in Other Encounters: ??? diatrizoate meglumine-diatrizoate sodium (GASTROGRAFIN/-GASTROVIEW) 66-10 % solution 60 mL, 60 mL, oral, Once in imaging, Crispin Shen MD Physical Exam: General: NAD, resting comfortably Neurologic: A&Ox4, nonfocal, grossly intact HEENT: NC/AT, MMM CV: RRR Respiratory: NLB on RA Abdomen: soft, nontender, nondistended Wound: incision covered with airstrip, c/d/i. Thigh soft, no palpable fluid collection. JPx2 serosanguinous. Extremities: WWP, no c/c/e Psych: appropriate mood and affect Lab/Radiology/Diagnostic Review: Chem/LFT Lab History Some values may be hidden. Unless noted otherwise, only the newest values recorded on each date aredisplayed. Labs-Chem/LFT Latest Ref Range 111/22/20 11/24/20 Sodium 135 - 145 mmol/L 143 136 Creatinine 0.60 - 1.10 mg/dL 0.82 0.89 CrCl- Actual Body Weight (Cockcroft-Gault) 121.8 129.7 122.1 Hematology Lab History Some values may be hidden. Unless noted otherwise, only the newest values recorded on each date aredisplayed. Labs - Hematology Latest Ref Range 11/22/20 11/24/20 WBC 3.8 - 9.9 K/cumm 7.8 15.2 (A) Total Hb, POC 11.9 - 15.5 g/dL 13.6 11.2 (A) Hct 35.6 - 45.5 % 40.1 33.8 (A) Plt 150 - 400 K/cumm 256 221 (A) Abnormal value Assessment/Plan ASSESSMENT Belem Smith is a 49 y.o. female s/p anovaginal fistula repair (CRS) and pedicled gracilis coverage 11/24. Doing well. PLAN [ ] Abx: Per primary [ ] Activity/Positioning: Minimize RIGHT leg abduction, pillow between legs, logroll to stand, no prolonged sitting on bottom [ ] Anticoagulation: DVT ppx [ ] Consults: CRS primary [ ] Diet: per primary [ ] Drains: FE x2 -- RIGHT medial thigh (PRS), perineum (CRS). If discharges today, will keep FE drain. [ ] Dressing: RIGHT medial thigh - airstrip, remove POD2 [ ] Labs/Monitoring: Per primary [ ] Pain: Per primary [ ] Therapy: PT/OT [ ] Dispo: Per primary, ok for discharge from [facility]S perspective. Follow up: with Dr. Guidry in [address] [place] [address] [facility], [address], call [phone] to schedule Chrissy Madera MD 11/25/2020 If you have questions, please check Amion to find the resident responsible for this patient's care.If uncertain, please call: Weekdays 7AM - 5PM please call the Plastic Surgery Consult Pager [phone] to be directed to thecorrect Plastic Surgery resident. Weeknights 5PM - 7AM, All day on Weekends, All day on Holidays please call the Defence Intelligence Analyst to find theOn Call Plastic Surgery resident Cosigned by Cyndee Guidry MD PhD at 11/26/2020 5:05 PM CDT * Jackson Gaytan MD PhD - 11/24/2020 5:57 PM CDT Plastic Surgery Post-Operative Check Patient Name: Belem Smith : 1970 HPI: Patient is a 49 y.o. female s/p anovaginal fistula repair (CRS) and pedicled gracilis flap on 11/24. SUBJECTIVE / EVENTS - Arrived to the floor in stable condition - Pain is well-controlled OBJECTIVE Recent Vitals(24hr Range): Vitals: 11/24/20 1610 11/24/20 1625 11/24/20 1640 11/24/20 1710 BP: 105/73 118/66 120/77 122/67 BP Location: Patient Position: Pulse: 95 121 100 Resp: Temp: TempSrc: SpO2: 97% 94% 97% I and Os: Intake/Output Summary (Last 24 hours) at 11/24/2020 1757 Last data filed at 11/24/2020 1400 Gross per 24 hour Intake 1400 ml Output 410 ml Net 990 ml Physical Exam: Constitutional: Appears comfortable. No acute distress. Alert and oriented x 3 Resp: Good inspiratory effort, symmetric chest wall movements CVS: Well-perfused RLE: incision c/d/i with no evidence of fluid collection, JPx2 w/ ssg output. Lab/Radiology/Diagnostic Review: Recent Labs Lab Units 11/22/20 1648 SODIUM mmol/L 143 POTASSIUM PLASMA mmol/L 4.9 CHLORIDE mmol/L 108 CO2 mmol/L 28 BUN SERUM mg/dL 20 CREATININE mg/dL 0.82 CALCIUM mg/dL 9.9 Recent Labs Lab Units 11/22/20 1648 GLUCOSE mg/dL 94 Recent Labs Lab Units 11/22/20 1648 WBC K/cumm 7.8 HEMOGLOBIN g/dL 13.6 HEMATOCRIT % 40.1 PLATELETS K/cumm 256 Meds: Current Facility-Administered Medications: ??? acetaminophen (TYLENOL) tablet 1,000 mg, 1,000 mg, oral, Q6H CARO, Horace Escoto MD, 1,000 mg at 11/24/20 1736 ??? dextrose 5% and sodium chloride 0.45% with potassium chloride 20 mEq/L infusion (premix), 75 mL/hr, intravenous, Continuous, Horace Escoto MD, Last Rate: 75 mL/hr at 11/24/20 1327, 75 mL/hr at 11/24/20 1327 ??? enoxaparin (LOVENOX) syringe 40 mg, 40 mg, subcutaneous, Daily-2100, Horace Escoto MD ??? gabapentin (NEURONTIN) capsule 300 mg, 300 mg, oral, Q12H CARO, Horace Escoto MD ??? HYDROmorphone (DILAUDID) injection 0.2 mg, 0.2 mg, intravenous, Q4H PRN, Horace Escoto MD ??? ketorolac (TORADOL) injection 15 mg, 15 mg, intravenous, Q8H CARO, 15 mg at 11/24/20 1736 FOLLOWED BY [START ON 11/27/2020] ibuprofen (ADVIL,MOTRIN) tablet 600 mg, 600 mg, oral, Q8H CARO, Horace Escoto MD ??? LORazepam (ATIVAN) tablet 0.5 mg, 0.5 mg, oral, BID PRN, Horace Escoto MD ??? ondansetron (ZOFRAN) injection 4 mg, 4 mg, intravenous, Q6H PRN, Horace Escoto MD ??? oxyCODONE (ROXICODONE) tablet 5 mg, 5 mg, oral, Q4H PRN, Horace Escoto MD ??? prochlorperazine (COMPAZINE) injection 10 mg, 10 mg, intravenous, Q6H PRN, Horace Escoto MD ??? sertraline (ZOLOFT) tablet 75 mg, 75 mg, oral, Nightly, Horace Escoto MD ??? sodium chloride 0.9% flush 0.5-20 mL, 0.5-20 mL, intra-catheter, Q8H CARO, Horace Escoto MD, 10 mL at 11/24/20 1738 ??? sodium chloride 0.9% flush 0.5-20 mL, 0.5-20 mL, intra-catheter, PRN, Horace Escoto MD Facility-Administered Medications Ordered in Other Encounters: ??? diatrizoate meglumine-diatrizoate sodium (GASTROGRAFIN/-GASTROVIEW) 66-10 % solution 60 mL, 60 mL, oral, Once in imaging, Crispin Shen MD ASSESSMENT Belem Smith is a 49 y.o. female s/p anovaginal fistula repair (CRS) and pedicled gracilis flap on 11/24. PLAN [ ] Abx: Per primary [ ] Activity/Positioning: Minimize RIGHT leg abduction, pillow between legs, logroll to stand, no prolonged sitting on bottom [ ] Anticoagulation: DVT ppx [ ] Consults: CRS primary [ ] Diet: RD, per primary [ ] Drains: FE x2 -- RIGHT medial thigh (PRS), perineum (CRS) [ ] Dressing: RIGHT medial thigh - airstrip, down POD2 [ ] Labs/Monitoring: Per primary [ ] Pain: Per primary [ ] Therapy: PT/OT [ ] Dispo: Monitor recovery, per primary Jackson Gaytan MD PhD PGY-3, Plastic Surgery [phone] 11/24/2020 If you have questions, please check Amion (PRS) to find the resident responsible for this patient'scare. If uncertain, please call: Weekdays 7AM - 5PM please call the Plastic Surgery Consult Pager [phone] to be directed to thecorrect Plastic Surgery resident. Weeknights 5PM - 7AM, All day on Weekends, All day on Holidays please call the Defence Intelligence Analyst to find theOn Call Plastic Surgery resident Cosigned by Cyndee Guidry MD PhD at 11/26/2020 5:05 PM CDT * June Galeano RN - 11/24/2020 4:30 PM CDT CM Initial Assessment Interview Note Information Obtained From: Patient (11/24/201626) Admission Source: non health care facility Impression: Gracillis flap repair of anal vaginal fistula and colostomy revision Plan Includes: Patient to discharge to home with family, discharge needs pending Primary Source of Transportation: Does the patient need discharge transport arranged?: No (11/24/20 1630) Health Insurance Coverage: [employer] Prescription Coverage: Prescription coverage verified Pharmacy: [place], [place] Primary Care Provider: Monico Reynoso MD Prior to Admission: Primary Caregiver: Self Support System: Spouse/Significant Other Support system contact info (name, phone, availablity): significant other, Richelle Coto Home Care Services: No Durable Medical Equipment: None Living Arrangements: Spouse/significant other Type of Residence: Private residence Steps in home? : No steps inside or outside (11/24/201626) Potential discharge needs include:No anticipated home needs. If HH services were needed at discharge patient would be provided with a list of HH agencies Dialysis: none Behavioral Health Services: Behavioral Health Services: No (11/24/201626) Patient expects to be Discharged to: Private residence, (11/24/20 315) Additional Information: Patient lives in a private residence, Transportation home from the hospitalto be provided by family Patient's Identified Problem/Goal Problem: Ensure acute medical [...] Collaboration with patient, MD, direct care nurse, End Finder Twisting Department, Nurse Coordinator and other members of the health care team to assure needed interventions completed. 2. Return patient to optimal level of self-care post discharge. 3. Appliance Adjuster will follow for Discharge Planning - interventions as needed 4. Anticipated level of care at discharge 5. Planned Discharge Disposition Based on a comprehensive family assessment, assistance with instrumental activities of daily livingafter discharge will be provided by patient Through the course of our work I [...] are in agreement with the aftercare plan. June Galeano RN documented in this encounter H&P Notes * Horace Escoto MD - 11/24/2020 7:54 AM CDT I have reviewed the H&P, examined the patient, and endorse the findings as written. Plan of Care : Based on the above findings, I consider Belem Smith to be an acceptable risk for: Procedure(s): GRACILIS FLAP REPAIR OF RECTOVAGINAL FISTULA REVISION COLOSTOMY GRACILIS FLAP HARVEST Cosigned by Crispin Shen MD at 11/24/2020 1:02 PM CDT Source Note - Breanna Ramos NP - 11/22/2020 4:41 PM CDT Images from the original note were not included. [facility] Preoperative Assessment and Planning Preoperative Evaluation Record Evaluation type/location: [facility] Planned procedure site: [facility] (Pod 1) Date: 11/22/20 Anesthesia Evaluation Belem Smith is a 49 y.o. female Procedure(s): GRACILIS FLAP REPAIR OF RECTOVAGINAL FISTULA REVISION COLOSTOMY GRACILIS FLAP HARVEST Pre-Op Diagnosis Codes: * Rectovaginal fistula [N82.3] HISTORY HPI 49 year old female with Rectovaginal fistula scheduled for RACILIS FLAP REPAIR OF RECTOVAGINAL FISTULA REVISION COLOSTOMY GRACILIS FLAP HARVEST Past Medical History Information obtained from: patient and chart. Neurological Pertinent negatives: seizures; neuromuscular disease and CVA/stroke Neuro/Psych system: negative Cardiovascular Cardiac system: negative Respiratory Pertinent negatives: non-smoker Respiratory system: negative Hepatic / Heme Hepatic/Heme system: negative Gastrointestinal GI system: negative Renal / Renal/ system: negative Musculoskeletal/Pain Pertinent negatives: chronic pain Musculoskeletal/Pain system: negative Endocrine / Other + Obesity (BMI >30) Pertinent negatives: diabetes mellitus; thyroid disease; cancer history; rheumatological disease and transplanted organ Functional Capacity Functional capacity: 4-6 METs Comments: Patient is able to climb 2 flights of stairs at a moderate pace without SOB or CP. Review of Systems Pertinent negatives: productive cough; wheezing; SOB; recent cold/flu; fever; chest pain; palpitations; orthopnea; pedal edema; PND; heavy menses; previous transfusion; easy bruising; bleeding problems; syncope; dizziness; muscle weakness; chronic pain; numbness/tingling; hard of hearing; vision loss (contacts); heartburn; nausea; dysphagia; diarrhea; dentures/partials; chipped/loose teeth; abdominal pain; diaphoresis and no unexpected weight change PAT Summary and Plans Cardiac risk classification of planned procedure: intermediate cardiac risk. Preoperative assessment status: lab tests ordered. Additional comments: Belem Smith is a 49 y.o. female who is being evaluated prior to undergoingan intermediate cardiac risk surgery. Revised Cardiac Risk Index factors are (none) for a total RCRI of 0 out of 6. Functional capacity is 4-6 METs. Obstructive sleep apnea (CANDE) screening status is STOP-Bang=1 suggesting low risk for CANDE. Blood bank needs for day of procedure: Type and Screen only Pending labs/tests include: CBC BMP T&S Patient's COVID19 status is: Unexposed. The patient currently has no concerning symptoms of COVID19. . Plan for pre-procedure COVID19 testing: Surgery date within 4 days. Pre-procedure COVID19 testing performed at [facility]. Result pending- to be reviewed by surgeon's office. Preoperative evaluation performed by Chrissy Kay NP on 11/22/20 at 4:43 PM.. Follow up note Labs reviewed and are without significant findings. CPAP process complete. Follow-up completed by: Breanna Ramos NP on 11/23/20 at 8:31 AM Patient Active Problem List Diagnosis ??? [...] Med List Status: Nurse Complete Set By: Libby Henderson RN at 11/22/2020 4:14 PM Taking? Last Dose Start Date End Date Provider ascorbic acid (VITAMIN C) 1,000 mg tablet 11/21/2020 -- -- Tyra Crawford MD cholecalciferol (VITAMIN D-3) 2000 unit capsule 11/21/2020 -- -- Tyra Crawford MD LORazepam (ATIVAN) 0.5 mg tablet Past Week 07/09/20 -- Tyra Crawford MD lysine 1,000 mg tablet 11/21/2020 -- -- Tyra Crawford MD mirtazapine (REMERON) 15 mg tablet 11/21/2020 08/24/20 -- Tyra Crawford MD multivitamin capsule 11/21/2020 -- -- Tyra Crawford MD omega-3 fatty acids-fish oil 300-1,000 mg capsule 11/21/2020 -- -- Tyra Crawford MD sertraline (ZOLOFT) 25 mg tablet 07/09/20 -- Tyra Crawford MD Notes: Has not taken this prescription yet sertraline (ZOLOFT) 50 mg tablet 11/21/2020 11/16/20 -- Tyra Crawford MD sodium chloride (OCEAN) 0.65 % nasal spray 11/22/2020 -- -- Tyra Crawford MD turmeric root extract 500 mg capsule Past Week -- -- Tyra Crawford MD Notes: Stopped on 11-19-2020 for surgery zinc 50 mg tablet 11/21/2020 -- -- Provider, MD Tyra Current Outpatient Medications: ??? ascorbic acid (VITAMIN [...] capsule ??? zinc 50 mg tablet ??? sertraline (ZOLOFT) 25 mg tablet No current facility-administered medications for [...] Age of Onset ??? Thyroid cancer Mother PAT Physical Exam Airway Exam: Mallampati: I Cervical ROM: FROM TM distance: 3 Cardiovascular Exam: Rate: regular Rhythm: regular Negative for Murmur No extra heart sounds appreciated Negative for peripheral edema Pulmonary Exam: LCTA, bilat EENT Exam: trachea midline Dental Exam: Appears intact Skin Exam: Skin is warm. Capillary refill is < 3 seconds. Turgor is normal. Abdominal exam: Abdomen is soft. Bowel sounds are present. Current state: Patient's current state is cooperative and interactive. Line/Drains/Tubes/Devices: No GI drains/tubes in place Vitals: 11/22/20 1615 11/22/20 1621 BP: 135/81 126/69 Pulse: 66 Resp: 16 SpO2: 98% PT: No results found for requested labs [...] for requested labs within last 720 hours. STOP-Bang Total Score: 1 Sandeep index score: 100 documented in this encounter Miscellaneous Notes * Plan of Care - Mary Ann Jackson RN - 11/26/2020 12:38 PM CDT Goals: Clinical Goals for the Shift: pain control/ambulate/d/c to home Summary: d/c to home this afternoon * Hospital Course - Darline Sheth MD - 11/26/2020 10:43 AM CDT The patient underwent gracilis flap repair of rectovaginal fistula w/ minor colostomy revision on 11/24 with plastic surgery and colorectal surgery. Two drains were placed, R thigh and perineal. She was admitted post-op for pain control, and to await return of bowel function. On POD 1, the patient had return of bowel function. She was discharged on POD 2 after drain teaching. She was disccharged with both FE drains (medial R thigh, and perineum) in place, as well as heart in place. She will follow up with plastic surgery and colorectal surgery on 12/03. ?? * Plan of Care - Marcello Medina RN - 11/25/2020 8:14 PM CDT Goals: Clinical Goals for the Shift: monitor I/O's, pain control, ambulate Summary: Patient ambulates often and patient's ostomy has good output. * Plan of Care - June Galeano RN - 11/25/2020 11:41 AM CDT CM notified during dcam that patient may require for drain care. Patient sent referrals through [facility] to [facility], [facility] and [facility]. Addendum 11:41 CM received following [facility] responses: [facility]- [employer] text received, declining referral [facility]-declined, not in network with insurance [facility]-declined referral, out of service area CM sent additional referrals to: [facility]-CM received call from Hanna declining referral,can not service this area [facility]- [employer] text received declining referral, out of network [facility]- CM received voicemail from ramona Agarwal to accept patient for service * Plan of Care - Nicolasa Fernandes RN - 11/25/2020 2:16 AM CDT Goals: Clinical Goals for the Shift: Monitor I and O, control pain, ambulate Summary: Pt voiding adequately from heart, pt C/O pain, administered prescribed interventions, pt rested quietly during shift, pt ambulated in room, pt tolerating diet and medications, vitals stable.Reinforced perianal dressing due to it coming lose. Will continue to monitor. -Nicolasa Fernandes RN Problem: Health Behavior: Goal: Understanding of discharge needs will improve Outcome: Progressing Problem: Skin Integrity: Goal: Signs of wound healing will improve Outcome: Progressing Goal: Skin integrity will improve Outcome: Progressing Goal: Will show no evidence of further tissue damage Outcome: Progressing Problem: Medication: Goal: Satisfaction with pain management regimen will improve Outcome: Progressing Problem: Sensory: Goal: Ability to identify factors that increase the pain will improve Outcome: Progressing Goal: Pain level will decrease Outcome: Progressing Problem: Safety: Goal: Will remain free from falls Outcome: Progressing Goal: Will remain free from injury from falls Outcome: Progressing Goal: Will remain free from falls and injury in home environment Outcome: Progressing Problem: Urinary Elimination: Goal: Complications related to the disease process, condition or treatment will be avoided or minimized Outcome: Progressing * Plan of Care - Marcello Medina RN - 11/24/2020 7:46 PM CDT Goals: Summary: Patient's vitals are stable and patient walked 900ft shortly after arriving to the unit. * Post-Procedure Note - Leticia Mcleod NP - 11/24/2020 3:15 PM CDT POST OP CRS ACCEPT NOTE 49 y/o F w RV fistula s/p GRACILIS FLAP REPAIR OF RECTOVAGINAL FISTULA REVISION COLOSTOMY Subjective: Doing well. The patient denies nausea and vomiting at this time. No pain. Objective: Vital Signs: stable Physical exam: Gen: No acute distress CV: Regular rate and rhythm, warm and well perfused Pulm: Non-labored breathing Abd: Soft, appropriately tender, nondistended. Wound: perineal wound c/d/ with Sutures visible. No erythema, edema. FE to Groin with SS fluid and FE to LLE with SS fluid : Heart clear yellow urine Skin: Abdominal dressing clean, dry and intact. Ext: Moves all four extremities spontaneously Neuro: Alert and oriented x 4 Plan: Clear liquid diet as tolerated Lovenox for DVT prophylaxis Ambulate Am labs IVF's for hydration IS Q 1 hour Acute pain control Leticia Mcleod APRN Colorectal Surgery * Op Note - Crispin Shen MD - 11/24/2020 9:18 AM CDT SURGICAL TEAM: Surgeon(s) and Role: Panel 1: * Crispin Shen MD - Primary * Horace Escoto MD - Fellow Panel 2: * Cyndee Guidry MD PhD - Primary * Kurt Saha MD - Resident - Assisting * Candice Tyler MD - Resident - Assisting Dr. Guidry assistance as co-surgeon was necessary because I have cytopathology technologist in harvesting a gracillis flap. ANESTHESIA: General PREOPERATIVE DIAGNOSIS (ES): Anovaginal fistula POSTOPERATIVE DIAGNOSIS (ES): Anal vaginal fistula NAME OF OPERATION: Gracillis flap repair of anal vaginal fistula and colostomy revision INDICATIONS FOR PROCEDURE: The patient is a 49 y.o. female with a history of an anal vaginal fistula. She has failed a Martiusflap repair. She was diverted at an outside hospital. She is brought the operating room for gracillis flap repair. OPERATIVE FINDINGS: The fistula was in the upper anal canal just above the anterior sphincters. DESCRIPTION OF PROCEDURE: The patient was brought to the operating room and placed under general anesthesia in the lithotomy position. Several gxyoyy-vz-ievor silk sutures were used to close off the distal end of the colostomy at the inferior aspect of the wound. The patency of the proximal limb was confirmed. The patient was then placed in high lithotomy and the perineum and bilateral thighs were prepped and draped in a normal sterile fashion. A transverse incision was made across the perineal body. Dissection was carried out just beneath the vaginal mucosa anterior to the anterior anal sphincter muscles. Once we reached the level of the fistula, our dissection was carried out laterally on each side of the fistula up to normal planes. On the left side, the planes were a little more difficult to define because of the prior Martius flap procedure. Eventually, we were able to isolate the fistula. Thefistula was divided. Our dissection was then carried out in the virgin rectovaginal septal plane about 3-4 cm above the level of the fistula. Hemostasis was obtained with FloSeal. Dr. Guidry then cameto the room and harvested the gracilis flap. We assisted them in the tunneling of the flap down into the wound. They closed the leg. Their portion will be dictated separately. Once we had the gracillis flap tunneled into our wound, we used multiple two 0 Vicryl sutures to secure it into our pocket in the perineal body. Hemostasis was confirmed. The 10 Ivorian drain was then placed through the right groin and down into our wound around the muscle flap. The skin was then reapproximated in a T-shaped fashion. The bridge between our transverse incision and the vaginal opening of the fistula appeared necrotic and so we excised that. We reapproximated the dermis in multiple places with subcutaneous 2-0 Vicryl sutures. The skin was then closed with simple chromic sutures. ESTIMATED BLOOD LOSS: 200 mL INTRAOPERATIVE FLUIDS: See anesthesia record. SPONGE/INSTRUMENT/NEEDLE COUNTS: Correct times two. PRESENCE STATEMENT: I was present for the entire procedure as I have described above * Op Note - Cyndee Guidry MD PhD - 11/24/2020 9:18 AM CDT Operative Note Preoperative Diagnosis: Rectovaginal fistula Postoperative Diagnosis: The same Procedure: Right pedicled gracilis muscle flap harvest for repair of rectovaginal fistula Implants: Nothing was implanted during the procedure Surgeon: Cyndee Guidry MD PhD Area Captain Surgeons: Kurt Saha MD, Candice Tyler MD Anesthesia: General endotracheal anesthesia EBL: Minimal Complications: None Disposition: Patient remained in the operating room for additional surgery by the Colorectal Surgical Service Indications: This is a 49-year-old female who was referred to Plastic surgery by the colorectal surgery service. The patient has a extensive history of a rectovaginal by a Dr. Crispin Shen in the Colorectal division. The patient is planned for a final division of the fistula and Plastic surgery was consulted for a harvesting and transposition of a pedicled right gracilis muscle flap for interposition closure of the fistula. The specifics of the operation including the risks and benefits were discussed with the patient who appeared to understand and agree to proceed. Informed consent was obtained. Surgical procedure: The patient was taken to the operating room by the colorectal service and placed in the supine position. After IV sedation the patient was endotracheally intubated and general anesthesia was then administered. The patient was placed in stirrups and following the colorectal portion of the case Plastic surgery entered the operating room for their portion of the case. The patient's adductor longus tendon was palpated along the inner aspect of the right thigh. Three finger breaths below the adductor longus an incision was marked out approximately 10 cm in length beginning about about 10 cm from the ischial tubercle. A line was also drawn at the 10 cm ankit from the ischial tubercle to ankit the potential pedicle of the gracilis muscle. An incision was then made and using a combination of blunt and sharp dissection as well as the Bovie the deep fascia of the thigh was transected and there was a long strap muscle which appeared to be the gracilis. This was a very healthy-ap pearing muscle. The muscle was circumferentially dissected free throughout the 10 cm incision and pedicle was noted on the undersurface of the muscle approximately 12 cm from the ischial tuberosity. At this point a counter incision near the tibial tuberosity measuring about 2 cm. Again using a combi nation of blunt and sharp dissection a tendon was identified which when pulled appeared to correspond to the circumferentially dissected free gracilis. As the gracilis muscle was tested with the Bovie the tendon was clearly placed taut. After circumferentially dissecting free the tendon of the gracilis distally the tendon was transected. The muscle was bluntly dissected as much as possible in theskin and subcutaneous remainder of the distal 2/3 of the thigh and in preparation to bring the muscle into the proximal thigh wound for its eventual transposition into the space between the rectum and the vagina. Using a moistened lap pad gentle traction was applied to the gracilis muscle at its pro ximal harvest site and the remainder of the distal muscle including the tendon was easily drawn into the patient's proximal thigh incision. At this point a tunnel was created between the gracilis muscle harvest site and the incised area of the rectovaginal fistula created by the colorectal team. Using blunt dissection a tunnel was created. The gracilis muscle was not disinserted from its proximalinsertion but was easily pulled into the takedown of the rectovaginal fistula site. At this point the skin incision was extended slightly proximally in the thigh the muscle was dissected free around the pedicle and the pedicle was partially skeletonized to allow for increased transposition of the muscle into the rectovaginal fistula takedown site. The tunnel between the tibial insertion of the gracilis muscle tendon distally was irrigated and a final check of hemostasis was made with the Bovie.A 15 Ivorian FE drain was inserted from distal to proximal in the gracilis muscle harvest site and brought out through the patient's proximal thigh region. It was secured at the skin with a 3-0 nylon stitch. The incision for the disinsertion of the gracilis distally was reapproximated with 3-0 Monocryl followed by 3-0 PDS. The gracilis muscle harvest site was then irrigated a final check of hemostasis was made with the Bovie. Adolfo's fascia was then closed with interrupted 2-0 Vicryl. The dermis was then closed with a 3-0 Vicryl deep dermal interrupted sutures followed by an interrupted 3-0 PDS. The final inset of the gracilis muscle flap was performed by the colorectal service. Please see Dr. Kervin Bowen dictation for the inset of the gracilis muscle flap. I was present for the entire plastic surgical portion of the case. * Brief Op Note - Candice Tyler MD - 11/24/2020 9:18 AM CDT Operative Progress Note Surgical Team: Surgeon(s) and Role: Panel 1: * Crispin Shen MD - Primary * Horace Escoto MD - Fellow Panel 2: * Cyndee Guidry MD PhD - Primary * Kurt Saha MD - Resident - Assisting * Candice Tyler MD - Resident - Assisting Anesthesiologist: Niyah Michele MD SIDE LASTER TACK: Cee Rosado CRNA Laboratory Administrative Director: Nathaniel Dickerson RN; Martinez David RN Laboratory Administrative Director Relief: Sveta Vallejo RN Scrub Relief: Sveta Vallejo RN Scrub: Liliana Oates RN FLOAT: Sveta Vallejo RN DATE OF SURGERY : 11/24/2020 Preoperative Diagnosis: Pre-op Diagnosis * Rectovaginal fistula [N82.3] Postoperative Diagnosis: Post-op Diagnosis * Rectovaginal fistula [N82.3] Procedure(s): Procedure(s) (LRB): GRACILIS FLAP REPAIR OF RECTOVAGINAL FISTULA (N/A) REVISION COLOSTOMY (N/A) RT GRACILIS Muscle FLAP HARVEST for Rectrovaginal Fistula Repair (N/A) Operative Findings: RIGHT pedicled gracilis for rectovaginal fistula repair Estimated Blood Loss: 75 mL Intraoperative Fluids: Please see anesthesia record Specimens: No specimen collected in procedure Implants: Nothing was implanted during the procedure Blood/Blood Products Transfused: None Complications: None Condition on Discharge from the operating room was stable Candice Tyler MD Date: 11/24/2020 Time: 12:57 PM TEACHING ATTESTATION : I was present and directly participated in the entire procedure (including opening and closing). Cosigned by Cyndee Guidry MD PhD at 11/26/2020 5:05 PM CDT documented in this encounter Plan of Treatment Not on file documented as of this encounter Procedures Procedure Name Priority Date/Time Associated Diagnosis Comments CBC WITHOUT DIFFERENTIAL Timed 11/25/2020 9:47 PM CDT BASIC METABOLIC PANEL Timed 11/25/2020 9:47 PM CDT CBC WITHOUT DIFFERENTIAL Timed 11/24/2020 11:13 PM CDT BASIC METABOLIC PANEL Timed 11/24/2020 11:13 PM CDT FREE FLAP GRACILIS MUSCLE 11/24/2020 8:34 AM CDT Rectovaginal fistula Case Notes 10/13 per resource nurse this is scheduled correctly KF REVISION COLOSTOMY 11/24/2020 8: 34 AM CDT Rectovaginal fistula Case Notes 10/13 per resource nurse this is scheduled correctly KF REPAIR RECTOVAGINAL FISTULA 11/24/2020 8:34 AM CDT Rectovaginal fistula Case Notes 10/13 per resource nurse this is scheduled correctly KF B CHECK SAMPLE STAT 11/24/2020 7:45 AM CDT documented in this encounter Results * (ABNORMAL) Basic metabolic panel (11/25/2020 9:47 PM CDT) Sodium 138 135 - 145 mmol/L [facility] Potassium, pl 4.0 3.3 - 4.9 mmol/L [facility] Chloride 107 97 - 110 mmol/L [facility] CO2 26 22 - 32 mmol/L [facility] Anion gap 5 2 - 15 mmol/L [facility] BUN 26(H) 8 - 25 mg/dL [facility] Creatinine 0.89 0.60 - 1.10 mg/dL [facility] Glucose 95 70 - 199 mg/dL [facility] Comment: Interpretive Data Fasting glucose >/= 126 [...] interpretive data was last revised 2017. Calcium 8.3(L) 8.5 - 10.3 mg/dL [facility] Blood specimen (specimen) 11/25/2020 9:47 PM CDT 11/25/2020 10:42 PM CDT [facility]ative [facility] - 11/25/2020 11:08 PM CDT Obtain POD 1 at 2200. us Crispin Shen MD LAB BLOOD ORDERABLES Final Res ult [facility] Department [place] [address] * (ABNORMAL) CBC without differential (11/25/2020 9:47 PM CDT) WBC 9.4 3.8 - 9.9 K/cumm [facility] Hgb 10.9(L) 11.9 - 15.5 g/dL [facility] Hct 33.6(L) 35.6 - 45.5 % [facility] Plt 180 150 - 400 K/cumm [facility] MPV 11.3 9.1 - 12.3 fL [facility] RBC 3.56(L) 3.90 - 5.20 M/cumm [facility] MCV 94.4 81.3 - 96.4 fL [facility] MCH 30.6 27.1 - 33.3 pg [facility] MCHC 32.4 32.3 - 35.7 g/dL [facility] RDW CV 13.2 11.1 - 14.9 % [facility] RDW SD 45.7 35.7 - 48.1 fL [facility] NRBC abs 0.00 0.00 - 0.01 K/cumm [facility] Blood specimen (specimen) 11/25/2020 9:47 PM CDT 11/25/2020 10:42 PM CDT Narrative [facility] - 11/25/2020 10:49 PM CDT Obtain POD 1 at 2200. Crispin Shen MD LAB BLOOD ORDERABLES Final Res ult Performing Organization Address City/[facility]/ZIP Co de Phone Number JAZZ [facility] Department [place] [address] * Basic metabolic panel (11/24/2020 11:13 PM CDT) Sodium 136 135 - 145 mmol/L [facility] Potassium, pl 4.7 3.3 - 4.9 mmol/L [facility] Chloride 104 97 - 110 mmol/L [facility] CO2 27 22 - 32 mmol/L [facility] Anion gap 5 2 - 15 mmol/L [facility] BUN 11 8 - 25 mg/dL [facility] Creatinine 0.89 0.60 - 1.10 mg/dL [facility] Glucose 166 70 - 199 mg/dL [facility] Comment: Interpretive Data Fasting glucose >/= 126 [...] interpretive data was last revised 2017. Calcium 8.5 8.5 - 10.3 mg/dL [facility] Blood specimen (specimen) 11/24/2020 11:13 PM CDT 11/24/2020 11:40 PM CDT Narrative [facility] - 11/25/2020 12:05 AM CDT Obtain POD 0 at 2200. Crispin Shen MD LAB BLOOD ORDERABLES Final Res ult Performing Organization Address [facility]/ZIP Co de Phone Number [facility] Department [place] [address] * (ABNORMAL) CBC without differential (11/24/2020 11:13 PM CDT) WBC 15.2(H) 3.8 - 9.9 K/cumm [facility] Hgb 11.2(L) 11.9 - 15.5 g/dL [facility] Hct 33.8(L) 35.6 - 45.5 % [facility] Plt 221 150 - 400 K/cumm [facility] MPV 10.8 9.1 - 12.3 fL [facility] RBC 3.65(L) 3.90 - 5.20 M/cumm [facility] MCV 92.6 81.3 - 96.4 fL [facility] MCH 30.7 27.1 - 33.3 pg [facility] MCHC 33.1 32.3 - 35.7 g/dL [facility] RDW CV 13.0 11.1 - 14.9 % [facility] RDW SD 43.7 35.7 - 48.1 fL [facility] NRBC abs 0.00 0.00 - 0.01 K/cumm [facility] Blood specimen (specimen) 11/24/2020 11:13 PM CDT 11/24/2020 11:40 PM CDT Narrative [facility] - 11/24/2020 11:47 PM CDT Obtain POD 0 at 2200. Crispin Shen MD LAB BLOOD ORDERABLES Final Res ult Performing Organization Address City/[facility] Co de Phone Number [facility] Department [place] [address] * Check Sample (11/24/2020 7:45 AM CDT) ABO Rh B Positive [facility] HCLL OTHER 11/24/2020 7:45 AM CDT 11/24/2020 7:58 AM CDT Crispin Shen MD LAB BLOOD ORDERABLES Final Res ult Performing Organization Address City/[facility] Co de Phone Number [facility] Department [place] [address] documented in this encounter Visit Diagnoses Diagnosis [...] Every 6 hours scheduled, First dose on Sun11/24/20 at 1530, Indications: PainIndications:Pain Given 11/26/2020 1:25 PM CDT 1,000 mg Given 11/26/2020 5:54 AM CDT 1,000 mg Given 11/25/2020 9:00 PM CDT 1,000 mg bacitracin-polymyxin B (POLYSPORIN) 500-10,000 unit/gram ointment tube As needed, Starting on Sun11/24/20 at 1251, Intra-Op Given 11/24/2020 12:51 PM CDT 1 application (deactivated) Surgical Site bupivacaine (MARCAINE) 0.25 % (2.5 mg/mL) preservative free injection As needed, Starting on Sun11/24/20 at 1153, Intra-Op Given 11/24/2020 11:53 AM CDT 15 mL Surgical Site enoxaparin (LOVENOX) syringe 40 mg 40 mg, subcutaneous, Daily (for enoxaparin), First dose on Sun11/24/20 at 2100, Indications: Deep Vein Thrombosis PreventionIndications:De ep Vein Thrombosis Prevention Given 11/25/2020 9:01 PM CDT 40 mg Left Outer Thigh Given 11/24/2020 8:58 PM CDT 40 mg Le ft Upper Abdomen gabapentin (NEURONTIN) capsule 300 mg 300 mg, oral, Every 12 hours scheduled, First dose on Sun11/24/20 at 2100, Indications: PainIndications:Pain Given 11/26/2020 8:49 AM CDT 300 mg Given 11/25/2020 9:01 PM CDT 300 mg Given 11/25/2020 10:52 AM CDT 300 mg ibuprofen (ADVIL,MOTRIN) tablet 600 mg 600 mg, oral, Every 8 hours scheduled, First dose on 11/27/20 at 1400, Start ibuprofen after the ketorolac doses are finished., Indications: PainIndications:Pain ketorolac (TORADOL) injection 15 mg 15 mg, intravenous, Every 8 hours scheduled, First dose on Sun11/24/20 at 1530, For 9 doses, Indications: Postoperative Acute PainIndications:Postoperative Acute Pain Given 11/26/2020 5:54 AM CDT 15 mg Given 11/25/2020 9:01 PM CDT 15 mg Given 11/25/2020 3:29 PM CDT 15 mg lidocaine-EPINEPHrine (XYLOCAINE with EPI) 1 %-1:100,000 injection As needed, Starting on Sun11/24/20 at 1153, Intra-Op, Indications: Administration of Local AnesthesiaIndications:Administrati on of Local Anesthesia Given 11/24/2020 11:53 AM CDT 15 mL Surgical Site oxyCODONE (ROXICODONE) tablet 5 mg 5 mg, oral, Every 4 hours PRN, 1st line for pain, Starting on Sun11/24/20 at 1459, May repeat in 1 hour if pain is uncontrolled or increasing. Max 2 doses within 1 dosing interval., Indications: PainIndications:Pain Given 11/26/2020 1:25 PM CDT 5 mg Given 11/25/2020 9:00 PM CDT 5 mg Given 11/25/2020 3:30 PM CDT 5 mg sertraline (ZOLOFT) tablet 50 mg 50 mg, oral, Nightly, First dose (after last modification) on Ana 11/25/20 at 2100 Given 11/25/2020 9:01 PM CDT 50 mg sodium chloride 0.9% flush 0.5-20 mL 0.5-20 mL, intra-catheter, Every 8 hours scheduled, First dose on Sun11/24/20 at 1530, Flush volume based on line type and size. Given 11/26/2020 5:56 AM CDT 10 mL Given 11/25/2020 9:07 PM CDT 10 mL Given 11/25/2020 3:30 PM CDT 10 mL sodium chloride 0.9% irrigation As needed, Starting on Sun11/24/20 at 0936, Intra-Op Given 11/24/2020 9:36 AM CDT 1,000 mL Surgical Site sterile water irrigation As needed, Starting on Sun11/24/20 at 1153, Intra-Op Given 11/24/2020 11:53 AM CDT 1,000 mL Other (Comment) documented in this encounter Active and Recently Administered Medications Times are shown in CDT. Scheduled Medication Order 11/24/2020 11/25/2020 11/26/2020 acetaminophen (TYLENOL) tablet 1,000 mg (COMPLETED) 1,000 mg, oral, Once, On Sun11/24/20 at 0715, For 1 dose, Pre-Op, Give upon arrival to holding area. , Indications: Pre-Emptive Analgesia 30 (Given - Provider: Theodore Ruff RN) acetaminophen (TYLENOL) tablet 1,000 mg 1,000 mg, oral, Every 6 hours scheduled, First dose on Sun11/24/20 at 1530, Indications: Pain 1736 (Given - Provider: Marcello Medina, CHRIS)2059 (Given - Provider: Nicolasa Fernandes RN) 0430 (Given - Provider: Nicolasa Fernandes RN)1053 (Given - Provider: Marcello Medina RN)1528 (Not Given - Provider: Marcello Medina RN - Reason: Contraindicated)2100 (Given - Provider: Federico Carr RN) 0554 (Given - Provider: Federico Carr RN)1325 (Given - Provider: Mary Ann Jackson RN) alvimopan (ENTEREG) capsule 12 mg (COMPLETED) 12 mg, oral, Once, On Sun11/24/20 at 0715, For 1 dose, Pre-Op, Give immediately upon arrival to holding area (do not prescribe if patient is currently receiving chronic opioid treatment). , Indications: Postoperative Ileus, Postoperative ileus prophylaxis 07 (Given - Provider: Theodore Ruff RN) enoxaparin (LOVENOX) syringe 40 mg 40 mg, subcutaneous, Daily (for enoxaparin), First dose on Sun11/24/20 at 2100, Indications: Deep Vein Thrombosis Prevention 2057 (Given - Provider: Nicolasa Fernandes RN) 210 (Given - Provider: Federico Carr RN) ertapenem (INVanz) injection 1,000 mg (COMPLETED) 1,000 mg, intravenous, Administer over 5 Minutes, Once, On Sun11/24/20 at 0715, For 1 dose, Pre-Op, Give within 60 minutes of incision. For IV Push administration: add 10 mL of sterile water for injection or NS to 1g vial to achieve a final concentration of 100 mg/mL. Do NOT mix with dextrose or other medications. , Indications: Prophylaxis, Surgical 0838 (Given - Provider: Cee Rosado CRNA) gabapentin (NEURONTIN) capsule 300 mg (COMPLETED) 300 mg, oral, Once, On Sun11/24/20 at 0715, For 1 dose, Pre-Op, Give upon arrival to holding area. , Indications: Pre-Emptive Analgesia 0730 (Given - Provider: Theodore Ruff RN) gabapentin (NEURONTIN) capsule 300 mg 300 mg, oral, Every 12 hours scheduled, First dose on Sun11/24/20 at 2100, Indications: Pain 2058 (Given - Provider: Nicolasa Fernandes RN) 1052 (Given - Provider: Marcello Medina RN)2101 (Given - Provider: Federico Carr RN) 0849 (Given - Provider: Mary Ann Jackson RN) heparin 5,000 unit/mL injection 5,000 Units (COMPLETED) 5,000 Units, subcutaneous, Once, On Sun11/24/20 at 0715, For 1 dose, Pre-Op, Can give immediately after neuraxial block if no complications per anesthesia., Indications: Deep Vein Thrombosis Prevention 0830 (Given - Provider: Theodore Ruff RN - Comment: waiting for pls) ibuprofen (ADVIL,MOTRIN) tablet 600 mg(Linked Group 1) 600 mg, oral, Every 8 hours scheduled, First dose on Sun11/27/20 at 1400, Start ibuprofen after the ketorolac doses are finished., Indications: Pain ketorolac (TORADOL) injection 15 mg(Linked Group 1) 15 mg, intravenous, Every 8 hours scheduled, First dose on Sun11/24/20 at 1530, For 9 doses, Indications: Postoperative Acute Pain 1736 (Given - Provider: Marcello Medina RN)2058 (Given - Provider: Nicolasa Fernandes RN) 0430 (Given - Provider: Nicolasa Fernandes RN)1529 (Given - Provider: Marcello Medina RN)210 (Given - Provider: Federico Carr, CHRIS) 0554 (Given - Provider: Federico Carr RN) ketorolac (TORADOL) injection 15 mg (COMPLETED) 15 mg, intravenous, Once, On Sun11/24/20 at 1400, For 1 dose, Phase I, For Adult IV push, administer over 15 seconds 1325 (Given - Provider: Cami Chisholm RN) sertraline (ZOLOFT) tablet 50 mg 50 mg, oral, Nightly, First dose (after last modification) on Ana 11/25/20 at 2100 2101 (Given - Provider: Federico Carr RN) sodium chloride 0.9% flush 0.5-20 mL 0.5-20 mL, intra-catheter, Every 8 hours scheduled, First dose on Sun11/24/20 at 1530, Flush volume based on line type and size. 1738 (Given - Provider: Marcello Medina RN)2059 (Given - Provider: Nicolasa Fernandes RN) 0436 (Given - Provider: Nicolasa Fernandes RN - Comment: with dialudid)1530 (Given - Provider: Marcello Medina RN)2107 (Given - Provider: Federico Carr RN) 0556 (Given - Provider: Federico Carr RN) Continuous Medication Order 11/24/2020 11/25/2020 11/26/2020 dextrose 5% and sodium chloride 0.45% with potassium chloride 20 mEq/L infusion (premix) () 75 mL/hr, intravenous, Continuous, Starting on Sun11/24/20 at 1400, For 16 hours, Phase I & Post-op Floor, Discontinue after breakfast post-op day 1. 1327 (New Bag - Provider: Cami Chisholm RN)2104 (Rate/Dose Verify - Provider: Nicolasa Fernandes RN) 0010 (Rate/Dose Verify - Provider: Nicolasa Fernandes RN)0135 (New Bag - Provider: Nicolasa Fernandes RN)0441 (Rate/Dose Verify - Provider: Nicolasa Fernandes RN)0657 (Rate/Dose Verify - Provider: Nicolasa Fernandes RN)0800 (Stopped - Provider: Marcello Medina, RN) Lactated Ringer's (LR) infusion (CANCELED) 30 mL/hr, intravenous, Continuous, Starting on Sun11/24/20 at 0715 0729 (New Bag - Provider: Theodore Ruff RN)0828 (Paused - Provider: Cee Rosado CRNA - Comment: Switch to gravity)0829 (Restarted - Provider: Cee Rosado CRNA)0930 (Anesthesia Volume Adjustment - Provider: Cee oRsado CRNA)1230 (Anesthesia Volume Adjustment - Provider: Cee Rosado CRNA) 0800 (Stopped - Provider: Marcello Medina RN) PRN Medication Order 11/24/2020 11/25/2020 11/26/2020 bacitracin-polymyxin B (POLYSPORIN) 500-10,000 unit/gram ointment tube (CANCELED) As needed, Starting on Sun11/24/20 at 1251, Intra-Op 1251 (Given - Provider: Horace Escoto MD) bupivacaine (MARCAINE) 0.25 % (2.5 mg/mL) preservative free injection (CANCELED) As needed, Starting on Sun11/24/20 at 1153, Intra-Op 1153 (Given - Provider: Kurt Saha MD) HYDROmorphone (DILAUDID) injection 0.2 mg (CANCELED) 0.2 mg, intravenous, Administer over 2 Minutes, Every 10 min PRN, 1st line for pain, Starting on Sun11/24/20 at 1256, Phase I, Switch to 2nd line analgesic order if pain is uncontrolled or increasing after 2 doses. Notify Anesthesiologist if total PACU dose reaches 2 mg and pain score 5/10 or more., Indications: Pain 1308 (Given - Provider: Cami Chisholm RN)1318 (Given - Provider: Cami Chisholm, CHRIS)1328 (Given - Provider: Cami Chisholm, CHRIS) HYDROmorphone (DILAUDID) injection 0.2 mg (CANCELED) 0.2 mg, intravenous, Administer over 2 Minutes, Every 4 hours PRN, 2nd line for pain, Starting on Sun11/24/20 at 1459, May administer 1 hour after second dose of 1st line analgesic agent for uncontrolled or increasing pain., Indications: Pain 0436 (Given - Provider: Nicolasa Fernandes RN) HYDROmorphone (DILAUDID) injection 0.4 mg (CANCELED) 0.4 mg, intravenous, Administer over 2 Minutes, Every 10 min PRN, 2nd line for pain, Starting on Sun11/24/20 at 1256, Phase I, May administer 10 mintes after 2nd dose of 1st line analgesic agent for uncontrolled or increasing pain. Revert to 1st line dose if POSS of 3. Notify Anesthesiologist if total PACU dose reaches 2 mg and pain score 5/10 or more., Indications: Pain 1338 (Given - Provider: Cami Chisholm RN) lidocaine-EPINEPHrine (XYLOCAINE with EPI) 1 %-1:100,000 injection (CANCELED) As needed, Starting on Sun11/24/20 at 1153, Intra-Op, Indications: Administration of Local Anesthesia 1153 (Given - Provider: Kurt Saha MD) LORazepam (ATIVAN) tablet 0.5 mg 0.5 mg, oral, 2 times daily PRN, anxiety, Starting on Sun11/24/20 at 1459 ondansetron (ZOFRAN) injection 4 mg 4 mg, intravenous, Administer over 2 Minutes, Every 6 hours PRN, nausea, vomiting, Starting on Sun11/24/20 at 1459, Proceed to prochlorperazine if no relief within 30 minutes. oxyCODONE (ROXICODONE) tablet 5 mg 5 mg, oral, Every 4 hours PRN, 1st line for pain, Starting on Sun11/24/20 at 1459, May repeat in 1 hour if pain is uncontrolled or increasing. Max 2 doses within 1 dosing interval., Indications: Pain 0135 (Given - Provider: Nicolasa Fernandes RN)0436 (Not Given - Provider: Nicolasa Fernandes RN - Reason: Other - Comment: too soon)1052 (Given - Provider: Marcello Medina RN)1530 (Given - Provider: Marcello Medina RN)2100 (Given - Provider: Federico Carr RN) 1325 (Given - Provider: Mary Ann Jackson RN) prochlorperazine (COMPAZINE) injection 10 mg 10 mg, intravenous, Administer over 2 Minutes, Every 6 hours PRN, nausea, vomiting, Starting on Sun11/24/20 at 1459, If not relieved by ondansetron within 30 minutes. sodium chloride 0.9% flush 0.5-20 mL 0.5-20 mL, intra-catheter, As needed, line care, Starting on Sun11/24/20 at 1459, Flush volume based on line type and size. Flush before and after each use. sodium chloride 0.9% irrigation (CANCELED) As needed, Starting on Sun11/24/20 at 0936, Intra-Op 0936 (Given - Provider: Crispin Shen MD) sterile water irrigation (CANCELED) As needed, Starting on Sun11/24/20 at 1153, Intra-Op 1153 (Given - Provider: Kurt Saha MD - Comment: instrument rinse) Linked Groups Order Group 1: ketorolac (TORADOL) injection 15 mgJump to med 15 mg, intravenous, Every 8 hours scheduled, First dose on Sun11/24/20 at 1530, For 9 doses, Indications: Postoperative Acute Pain Followed by ibuprofen (ADVIL,MOTRIN) tablet 600 mgJump to med 600 mg, oral, Every 8 hours scheduled, First dose on Sun11/27/20 at 1400, Start ibuprofen after the ketorolac doses are finished., Indications: Pain documented in this encounter Orders Medications Ordered That Max ht Not Have Been Administered Count Last Ordered Date First Ordered Date acetaminophen (TYLENOL) tablet 1,000 mg 2 0 11/24/2020 alvimopan (ENTEREG) capsule 12 mg 1 021 clindamycin (CLEOCIN) 600 mg , gentamicin (GARAMYCIN) 240 mg in sodium chloride 0.9% 500 mL irrigation solution 1 11/24/2020 dextrose 5% and sodium chlor nilson 0.45% with potassium chloride 20 mEq/L infusion (premix) 1 11/24/2020 enoxaparin (LOVENOX) syringe 40 mg 1 2020 ertapenem (INVanz) injection 1,000 mg 1 02/2021 gabapentin (NEURONTIN) capsule 300 mg 2 02/2021 haloperidol (HALDOL) injection 1 mg 1 11/24 heparin 5,000 unit/mL inject ion 5,000 Units 1 11/24/2020 HYDROmorphone (DILAUDID) injection 0.2 mg 2 11/24/2020 HYDROmorphone (DILAUDID) injection 0.4 mg 1 11/24/2020 ibuprofen (ADVIL,MOTRIN) tablet 600 mg 1 ketorolac (TORADOL) injection 15 mg 2 11/24 Lactated Ringer's (LR) infusion 1 LORazepam (ATIVAN) tablet 0.5 mg 1 11/25/19 naloxone (NARCAN) 0.4 mg/mL injection 0.04-0.4 mg 1 11/24/2020 ondansetron (ZOFRAN) injection 4 mg 1 11/24 oxyCODONE (ROXICODONE) tablet 5 mg 1 2020 prochlorperazine (COMPAZINE) injection 10 mg 2 11/24/2020 sertraline (ZOLOFT) tablet 50 mg 2 11/25/19 21 sertraline (ZOLOFT) tablet 75 mg 1 11/25/19 sodium chloride 0.9% flush 0.5-20 mL 3 02/2021 Diet Count Last Ordered Date First Orde red Date ADULT DISCHARGE DIET 1 11/26/2020 Nursing Count Last Ordered Date First Orde red Date DISCHARGE ACTIVITY 4 11/26/2020 DISCHARGE CALL PROVIDER 8 11/26/2020 DISCHARGE DRESSING 4 11/26/2020 Transfer Count Last Ordered Date First Orde red Date TRANSFER PATIENT 1 11/24/2020 documented in this encounter Care Teams Fine Unhairer Relationship Specialty Start Date End Date Crispin Shen MD Surgeon Colon and Rectal Surgery 09/09/20 documented as of this encounter
--- OUTSIDE RECORDS SUMMARY | 2024-08-18 09:56 | XMS_ITS | Encounter Summary ---
Author Organization [facility] Address [address] [place] [address] Phone Care Team Providers Care Inspector Materials And Processes Name Role Phone Crispin Shen MD Unavailable [phone] Reason for Visit * Reason Comments Rectovaginal fistula * Consultation (Routine) - Closed Specialty Diagnoses / Procedures Referred By Contac t Referred To Contact Surgery / Colon and Rectal Surgery Diagnoses Rectal vaginal fistula Referral, Self [facility] [address] [place] [address] [facility] 8th [place] [address] Phone: tel: fax: Referral ID Status Reason Start Date Expiration Date V isits Requested Visits Authorized [id number] Closed Specialty Services Required 07/20/2020 01/18/2021 6 6 Encounter Details Date Type Department Care Team (Late st Contact Info) Description 11/18/2020 8:30 AM CDT Telemedicine [facility] [address] [place] [address] [facility] 8th [place] [address] Rectovaginal fistula (Primary Dx) Social History Tobacco Use Types Packs/Day Years Used Date Smoking Tobacco: Never Smokeless Tobacco: Never Alcohol Use Standard Drinks/Week Comments Not Currently 0 (1 standard drink = 0.6 oz pur e alcohol) Comments No Sex and Gender Information Value Date Recorded Sex Assigned at Not on file 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 During the visit, I was located in [place] and the patient was located [place]. The session started at 0830 and ended at 0853. The patient has been informed that the visit may not be secure and acknowledged the information. I have explained the option of participating in a telephone or video visit during the [facility] emergency to the patient. After being given an opportunity to ask questions about and discuss this type of visit, the patient verbally consented to proceeding with the telephone/video visit.The patient understands that this service replaces an office visit and they may be billed and/or responsible for any applicable copayments. Chief Complaint: Belem Smith presents for colectomy teaching for Rectovaginal fistula . She is scheduled for gracilis flap repair of rectovaginal fistula and colostomy revision. Vitals: There were no vitals taken for this visit.There is no height or weight on file to calculate BMI. Education provided which included: pain control, DVT prevention, SSI prevention, ambulation, diet/bowel activity, incentive spirometerusing the following method(s): written and verbal information provided. Impression and Plan: Belem Smith is a 49 y.o. female who has Rectovaginal fistula and is scheduled for gracilis flap repair of rectovaginal fistula and colostomy revision. During today's visit, I discussed the following with the patient: Pre-op prep: bowel prep, antibiotics, CHG cleanser, immunonutrition and carb loading. Post-op pain management: multimodal Post-op diet: regular DVT prevention: Lovenox Incentive spirometer: 10x per hour Ambulation Lifestyle: recover from surgery Duration of Visit: 30 minutes Signature: Akosua Hernandez RN 8:53 AM documented in this encounter Plan of Treatment Not on file documented as of this encounter Visit Diagnoses Diagnosis Rectovaginal fistula- Primary Digestive-genital tract fistula, female documented in this encounter Care Teams Inspector Materials And Processes Relationship Specialty Start Date End Date Crispin Shen MD Surgeon Colon and Rectal Surgery 09/09/20 documented as of this encounter
--- OUTSIDE RECORDS SUMMARY | 2024-08-18 09:56 | XMS_ITS | Encounter Summary ---
Author Organization [facility] Address [address] [place] [address] Care Team Providers Care Petroleum Refining Equipment Operator Name Role Phone Crispin Moffett MD Unavailable [phone] Encounter Details Date Type Department Care Team (Late st Contact Info) Description 01/18/2021 Orders Only [facility] Testing Site - [facility]. [address] [place] [address] Crispin Moffett MD [address] [facility] [id number] [place] [address] Pre-procedure lab exam (Primary Dx) Social History Tobacco Use Types [...] any clubs o r organizations such as tenriism groups, unions, fraternal or athletic groups, or school groups? No 11/24/2020 How often do you attend meet ings of the clubs or organizations you belong to? Never 11/24/2020 Are you , , di vorced, , never , or living with a partner? Living with partner 11/24/2020 AUDIT-C Answer Date Recorded Q1: How often do you have a drink containing alc ohol? Never 01/18/2021 Average Number of Drinks Not on file 021 Q3: How often do you have si x or more drinks on one occasion? 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 Department: [facility] Sched Instruct: ?? Comment: ?? Order Specific Questions Question Answer Comment Testing types: Pre-procedure ?? Date of Px/chemo/treatment/placement/transfer 01/21/2021 ?? Testing site patient will be sent to: [facility], [place] ?? Date testing requested: 01/19/2021 ?? Testing: COVID/FLU ?? Does the patient currently work in a healthcare facility with direct patient contact? No ?? Is the patient a resident of a congregate care or living setting? No ?? Is the patient ? No ?? Please select the performing region: [facility] documented in this encounter Plan of Treatment Not on file documented as of this encounter Results * Influenza A/B and COVID-19 PCR Nasopharyngeal (01/19/2021 7:00 AM CDT) COVID-19 RNA Not Detected MAHSA FOSTER (KELLY) Comment: Interpretive Data Synonyms for this test include: PCR and NAAT . ??Testing performed by the [facility]. The 2018-Novel Coronavirus [...] on September 23, 2020. Testing performed by: [facility], [address] [place]., [address] Influenza A RNA Not Detected Rigo FOSTER (KELLY) Comment:Testing performed by : [facility], [address] [place]., [address] Influenza B RNA Not Detected Rigo FOSTER (KELLY) Comment: Interpretive Data Testing performed by the [facility]. This test is performed using the silvano Influenza A/B Assay. This is a real-time RT-PCR test for the qualitative detection of nucleic acid from Influenza A and Influenza B. This assay has been reviewed by the FDA for Emergency Use Authorization (EUA). The performance characteristics have been verified by the [facility]. Results should be interpreted in combination with clinical context and a negative result does not rule out infection. ?? Interpretive data last revised 2020. Testing performed by: [facility], [address] [place] [address], [id number] First COVID-19 test? No JAZZ FOSTER (KELLY) Comment:Testing performed by : [facility], [address] [place] [address], [address] Employeed in healthcare? No JAZZ FOSTER (KELLY) Comment:Testing performed by : [facility], [address] [place] [address], [address] status? No JAYNA FOSTER (KELLY) Comment:Testing performed by : [facility], [address] [place] [address], [address] Group care resident? No JAZZ FOSTER (KELLY) Comment:Testing performed by : [address], [address] Hospitalized? No JAZZ FOSTER (KELLY) Comment:Testing performed by : [facility], [address] [place] [address], [id number] Is patient in ICU? No Rigo FOSTER (KELLY) Comment:Testing performed by : [address], [address] Symptomatic as defined by CDC? No JAZZ FOSTER (KELLY) Comment:Testing performed by : [address], [address] Nasopharyngeal 01/19/2021 7: 00 AM CDT 01/19/2021 3:53 PM CDT us Crispin Moffett MD LAB MICROBIOLOGY - GENERAL ORD ERABLES Final Result [facility] ([place]) [address] [facility] Department [place] [address] documented in this encounter Visit Diagnoses Diagnosis Pre-procedure lab exam- Primary Pre-procedural laboratory examination documented in this encounter Care Teams Petroleum Refining Equipment Operator Relationship Specialty Start Date End Date Crispin Moffett MD Surgeon Colon and Rectal Surgery 09/09/20 documented as of this encounter
--- OUTSIDE RECORDS SUMMARY | 2024-08-18 09:56 | XMS_ITS | Encounter Summary ---
Author Organization [facility] Address [address] [place] [address] Phone Care Team Providers Care Biology Instructor Name Role Phone Crispin Shen MD Unavailable [phone] Reason for Visit * Reason Onset Date Comments procedure confirmation 09/09/2020 Encounter Details Date Type Department Care Team (Late st Contact Info) Description 09/09/2020 [facility]phone [facility] [address] [facility] 8th [place] [address] [place] [address] Ana M Baig, Asher procedure confirmation Social History Tobacco Use Types Packs/Day Years Used Date Smoking Tobacco: Never Smokeless Tobacco: Never Alcohol Use Standard Drinks/Week Comments Not Currently 0 (1 standard drink = 0.6 oz pur e alcohol) Comments Unknown Sex and Gender Information Value Date Recorded Sex Assigned at Not on file Legal Sex Female 9:36 AM PRIMARY SPECIAL EDUCATOR Gender Identity Female 11/16/2020 2:58 PM CDT Sexual Orientation Straight 11/16/2020 2: 58 PM CDT documented as of this encounter Miscellaneous Notes * Telephone Encounter - Ana M Baig RMA - 09/09/2020 9:11 AM PRIMARY SPECIAL EDUCATOR Spoke to patient and confirmed prep and surgery. COVID Test: negative Prep: NPO after midnight Confirmed arrival time of 6:00 am at [facility], report to Main Entrance. Patient was made aware of current visitor policy and verbalized understanding. ARY SPECIAL EDUCATOR documented in this encounter Plan of Treatment Not on file documented as of this encounter Visit Diagnoses Not on filedocumented in this encounter Care Teams Biology Instructor Relationship Specialty Start Date End Date Crispin Shen MD Surgeon Colon and Rectal Surgery 09/09/20 documented as of this encounter
--- OUTSIDE RECORDS SUMMARY | 2024-08-18 09:56 | XMS_ITS | Encounter Summary ---
Author Organization [facility] Address [address] [facility] [address] [place] [address] Phone Care Team Providers Care Lead Solutions Architect Name Role Phone Crispin Shen MD Unavailable [phone] Reason for Visit * Consultation (Routine) - Closed Specialty Diagnoses / Procedures Referred By Cecy gage Referred To Contact Plastic Surgery Diagnoses Rectovaginal fistula Crispin Shen MD Phone: tel: fax: [facility] (All Locations) Referral ID Status Reason Start Date Expiration Date V isits Requested Visits Authorized [id number] Closed Specialty Services Required 10/12/2020 11/11/2021 6 6 Encounter Details Date Type Department Care Team (Late st Contact Info) Description 12/03/2020 1:55 PM CDT Office Visit [facility] Surgery [address] [facility] 6th [place] [address] [place] [address] Leigha Carreon, PROJECT MANAGEMENT IT SPECIALIST [address] [place] [address] Rectovaginal fistula (Primary Dx) Social [...] week 11/24/2020 How often do you attend [facility] or oriental orthodox services? 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 Overall the patient appears well. She has had some erythema around her right thigh incision and was started on Keflex a yesterday but after Dr. Shen saw her in clinic today she was switched to Augmentin. Dressing was clean dry and intact and removed today in the clinic. On examination, the incision is clean dry and intact, sutures intact, no drainage. There is some erythema surrounding the medial area of her thigh incision. Leg FE drain leaking at insertion site. JPdrain was removed for output <30cc for the past 2 days. Patient will return to clinic in 1 week to suture removal. Instructed to call with any concerns or questions. documented in this encounter Plan of Treatment Not on file documented as of this encounter Visit Diagnoses Diagnosis Rectovaginal fistula- Primary Digestive-genital tract fistula, female documented in this encounter Orders Outpatient Referral Count Last Ordered Date Fir st Ordered Date AMB REFERRAL TO PLASTIC SURGERY 1 1 documented in this encounter Care Teams Lead Solutions Architect Relationship Specialty Start Date End Date Crispin Shen MD Surgeon Colon and Rectal Surgery 09/09/20 documented as of this encounter
--- OUTSIDE RECORDS SUMMARY | 2024-08-18 09:56 | XMS_ITS | Encounter Summary ---
Author Organization [facility] Address [address] [place] [address] Phone Care Team Providers Care Tripe Cooker Name Role Phone Crispin Shen MD Unavailable [phone] Reason for Visit * Reason Onset Date Comments Post-op Problem 12/08/2020 Encounter Details Date Type Department Care Team (Late st Contact Info) Description 12/08/2020 Telephone [facility] Surgery [address] [facility] 8th [place] [address] [place] [address] Ana M Baig, A Post-op Problem Social History Tobacco Use Types Packs/Day Years [...] How often do you attend chur or scientologist services? 1 to 4 times per year [...] on file Legal Sex Female 9:36 AM GAME AGENT Gender Identity Female 11/16/2020 2:58 PM CDT Sexual Orientation Straight 11/16/2020 2: 58 PM CDT documented as of this encounter Miscellaneous Notes * Telephone Encounter - Ana M Baig, A - 12/08/2020 2:21 PM CDT Patient called stating she is on day 6 of Augmentin for cellulitis and has not had any improvement.Per Dr. Shen I have scheduled her for a CT pelvis and right thigh on Sunday and sent a RX for flagyl. Advised patient of CT appointment and that flagyl was sent to her RX and she is to also continue Augmentin. Patient verbalized understanding and agreement with plan. documented in this encounter Plan of Treatment Not on file documented as of this encounter Visit Diagnoses Not on filedocumented in this encounter Care Teams Tripe Cooker Relationship Specialty Start Date End Date Crispin Shen MD Surgeon Colon and Rectal Surgery 09/09/20 documented as of this encounter
--- OUTSIDE RECORDS SUMMARY | 2024-08-18 09:56 | XMS_ITS | Encounter Summary ---
Author Organization [facility] Address [address] [place] [address] Care Team Providers Care Communications Representative Name Role Phone Crispin Shen MD Unavailable [phone] Encounter Details Date Type Department Care Team (Late st Contact Info) Description 11/30/2020 Documentation [facility] Surgeon [address] [place] [address] Heydi Arce MD [address] [facility] [address] [place] [address] Social History Tobacco Use Types [...] often do you attend chur ch or jehovah's witness services? 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 Guidry) and colostomy revision (Dr. Shne). Patient is concerned that the skin around her leg drain is erythematous and indurated, more TTP than previously. Drainage remains SS and she denies purulence in or around the drain. Denies systemic symptoms including fevers/chills, N/V. I advised her to call back to speak with a member of Dr. Guidry' team as they are managing the drain of concern. I advised that they may want to see a photo through myChart, prescribe antibiotics, move up her clinic appointment or keep her existing appointment later this week depending on their assessment. She expressed understanding. Heydi Arce MD Fellow, Colon & Rectal Surgery documented in this encounter Plan of Treatment Not on file documented as of this encounter Visit Diagnoses Not on filedocumented in this encounter Care Teams Communications Representative Relationship Specialty Start Date End Date Crispin Shen MD Surgeon Colon and Rectal Surgery 09/09/20 documented as of this encounter
--- OUTSIDE RECORDS SUMMARY | 2024-08-18 09:56 | XMS_ITS | Encounter Summary ---
Author Organization [facility] Address [address] [place] [address] Care Team Providers Care Pot Pusher Name Role Phone Crispin Shen MD Unavailable [phone] Encounter Details Date Type Department Care Team (Late st Contact Info) Description 11/30/2020 Orders Only [facility] Surgeon [address] [place] [address] Nighat Al MD [address] [facility] [address] [place], [place] [id number] Social History Tobacco Use Types Packs/Day Years [...] often do you attend chur ch or confucianist services? 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 Gender Identity Female 11/16/2020 2:58 PM CDT Sexual Orientation Straight 11/16/2020 2: 58 PM CDT documented as of this encounter Ordered Prescriptions Prescription Sig Dispense Quantity Refills Last Filled Start Date End Date cephalexin (KEFLEX) 250 mg capsuleIndications :Prophylaxis, Medical Take 2 capsules (500 mg total) by mouth 2 (two) times a day for 5 days 20 capsule 11/30/2020 documented in this encounter Plan of Treatment Not on file documented as of this encounter Visit Diagnoses Not on filedocumented in this encounter Care Teams Pot Pusher Relationship Specialty Start Date End Date Crispin Shen MD Surgeon Colon and Rectal Surgery 09/09/20 documented as of this encounter
--- OUTSIDE RECORDS SUMMARY | 2024-08-18 09:56 | XMS_ITS | Encounter Summary ---
Author Organization [facility] Address [address] [facility] [address] [place] [address] Phone Care Team Providers Care Letterpress Setter Name Role Phone Unavailable Primary Care Provider Unavailabl e Reason for Visit * Reason Comments New Patient RECTOVAGINAL FISTULA * Consultation (Routine) - Canceled Specialty Diagnoses / Procedures Referred By Contac t Referred To Contact Surgery / Colon and Rectal Surgery Diagnoses Recto-vaginal fistula Kaitlyn Bowen MD [address] [facility] [place] [address] Phone: tel: fax: [facility] (All Locations) Referral ID Status Reason Start Date Expiration Date Visits Requested Visits Authorized [id number] Canceled Specialty Services Required 07/12/2020 08/11/2021 1 1 Encounter Details Date Type Department Care Team (Late st Contact Info) Description 08/31/2020 10:30 AM FIGHTING VEHICLE INFANTRYMAN Office Visit [facility] Surgery [address] [facility] 8th [place] [address] [place] [address] Crispin Shen MD [address] [facility] [phone] [place] [address] Rectovaginal fistula (Primary Dx) Social History Tobacco Use Types Packs/Day Years Used Date Smoking Tobacco: Never Smokeless Tobacco: Never Comments Unknown Sex and Gender Information Value Date Recorded Sex Assigned at Not on file Legal Sex Female 9:36 AM FIGHTING VEHICLE INFANTRYMAN Gender Identity Female 11/16/2020 2:58 PM CDT Sexual Orientation Straight 11/16/2020 2: 58 PM CDT documented as of this encounter Last Filed Vital Signs Vital Sign Reading Time Taken Comments Blood Pressure 131/79 08/31/2020 11:14 AM FIGHTING VEHICLE INFANTRYMAN Pulse 86 08/31/2020 11:14 AM FIGHTING VEHICLE INFANTRYMAN Temperature 36.3 ??C (97.3 ??F) 08/31/2020 11:[address] Respiratory Rate - - Oxygen Saturation - - Inhaled Oxygen Concentration - - Weight 94.1 kg (207 lb 6.4 oz) 08/31/2020 11:14 AM FIGHTING VEHICLE INFANTRYMAN Height 177.8 cm (5' 10 ) 08/31/2020 11:14 AM FIGHTING VEHICLE INFANTRYMAN Body Mass Index 29.76 08/31/2020 11:14 AM FIGHTING VEHICLE INFANTRYMAN documented in this encounter Progress Notes * Crispin Shen MD - 08/31/2020 10:30 AM CST Colorectal Surgery Consultation Consult requested by Kaitlyn [...] it here versus doing it back in [place]. I told them that was more than [...] they want to continue the treatment in [place] or transfer down here. Crispin Shen MD 08/31/2020 12:35 PM TING VEHICLE INFANTRYMAN documented in this encounter Miscellaneous Notes * Addendum Note - Ana M Baig RMA - 08/31/2020 10:30 AM CSTAddended by: ANA M BAIG on: 08/31/2020 05:06 PM Modules accepted: Orders TING VEHICLE INFANTRYMAN documented in this encounter Plan of Treatment Not on file documented as of this encounter Visit Diagnoses Diagnosis Rectovaginal fistula- Primary Digestive-genital tract fistula, female documented in this encounter Discontinued Medications Medication Sig Discontinue Reason Start Date End Da te fluconazole (DIFLUCAN) 150 mg tablet TK 1 T PO 1 TIME. MAY REPEAT IN 2 DAYS 05/21/2020 08/31/2020 documented as of this encounter Historical Medications * This list may reflect changes made after this encounter. lysine 1,000 mg tablet Take 1,000 mg by mouth nightly turmeric root extract 500 mg capsule Take 500 mg by mouth nightly omega-3 fatty acids-fish oil 300-1,000 mg capsuleIndication s:for supplement Take 1 capsule (1 g total) by mouth nightly 09/11/2023 zinc 50 mg tabletIndications :for supplement Take 50 mg by mouth nightly 09/11/2023 cholecalciferol (VITAMIN D-3) 2000 unit capsuleIndication s:Vitamin D Deficiency Take 1 capsule (2,000 Units total) by mouth nightly 09/11/2023 ascorbic acid (VITAMIN C) 1,000 mg tabletIndications :Vitamin C Deficiency,supple ment Take 1 tablet (1,000 mg total) by mouth nightly 09/11/2023 multivitamin capsuleIndication s:Vitamin Deficiency Prevention Take 1 capsule by mouth nightly 09/11/2023 topiramate (TOPAMAX) 50 mg tablet Take 50 mg by mouth 2 (two) times a day 08/07/2020 09/02/2020 LORazepam (ATIVAN) 0.5 mg tablet Take 1 tablet (0.5 mg total) by mouth 2 (two) times a day as needed for anxiety 07/09/2020 05/14/2023 mirtazapine (REMERON) 15 mg tabletIndications :depression Take 15 mg by mouth nightly 08/24/2020 09/23/2021 sertraline (ZOLOFT) 25 mg tabletIndications :Depression Take 25 mg by mouth every morning 07/09/2020 01/18/2021 fluconazole (DIFLUCAN) 150 mg tablet TK 1 T PO 1 TIME. MAY REPEAT IN 2 DAYS 05/21/2020 08/31/2020 added in this encounter
--- OUTSIDE RECORDS SUMMARY | 2024-08-18 09:56 | XMS_ITS | Encounter Summary ---
Author Organization [facility] Address [address] [facility] [address] [place] [address] Phone Care Team Providers Care Erosion Control Specialist Name Role Phone Crispin Shen MD Unavailable [phone] Reason for Visit * Reason Comments Post-op Visit S/P 11/24/2020 [place] is flap repair of anal vaginal fistula and colostomy revision * Consultation (Routine) - Closed Specialty Diagnoses / Procedures Referred By Cecy gage Referred To Contact Surgery / Colon and Rectal Surgery Diagnoses Rectal vaginal fistula Referral, Self [facility] Surgery [address] [place] [address] [facility] [address]th [place] [address] Phone: tel: fax: Referral ID Status Reason Start Date Expiration Date V isits Requested Visits Authorized [id number] Closed Specialty Services Required 07/20/2020 01/18/2021 6 6 Encounter Details Date Type Department Care Team (Late st Contact Info) Description 12/14/2020 8:15 AM CDT Office Visit [facility] Surgery [address] [place] [address] [facility] [address]th [place] [address] Crispin Shen MD [address] [facility] [phone] [place] [address] Rectovaginal fistula (Primary Dx) Social [...] often do you attend chur ch or scientologist services? 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 Gender Identity Female 11/16/2020 2:58 PM CDT Sexual Orientation Straight 11/16/2020 2: 58 PM CDT documented as of this encounter Last Filed Vital Signs Vital Sign Reading Time Taken Comments Blood Pressure 110/77 12/14/2020 8:15 AM CDT Pulse 76 12/14/2020 8:15 AM CDT Temperature 36 ??C (96.8 ??F) 12/14/2020 8:15 AM CDT Respiratory Rate - - Oxygen Saturation - - Inhaled Oxygen Concentration - - Weight 101.9 kg (224 lb 9.6 oz) 12/14/2020 8:15 AM CDT Height 177.8 cm (5' 10 ) 12/14/2020 8:15 AM CDT Body Mass Index 32.23 12/14/2020 8:15 AM CDT documented in this encounter Progress Notes * Crispin Shen MD - 12/14/2020 8:15 AM CDT Colorectal Post-operative Visit Patient ID: Belem Smith is a 50 y.o. female who is now three weeks out from a gracillis flap repair of a an anal vaginal fistula. She has been having some mild drainage from her perineal incisionthat has improved. The cellulitis around her thigh incision has improved. She noted a white area inher perineal wound. She sent pictures and I looked at them. She came in to have this evaluated. She is otherwise doing well and is back to work. Physical Exam: On exam, her perineal incision has opened. There is a white exudate that is just necrotic tissue atthe apex of the muscle flap. I debrided it sharply down to muscle. Assessment and Plan: Ms. Smith just has a normal looking flap with normal exudate and a bit of necrosis that we treated. I reassured her. I will see her back in 3-4 weeks. We can perhaps start planning for her ileostomy closure at that time 12/14/2020 Crispin Shen MD documented in this encounter Plan of Treatment Not on file documented as of this encounter Visit Diagnoses Diagnosis Rectovaginal fistula- Primary Digestive-genital tract fistula, female documented in this encounter Discontinued Medications Medication Sig Discontinue Reason Start Date End Da te amoxicillin-clavulanate (AUGMENTIN) 875-125 mg per tablet Take 1 tablet by mouth 2 (two) times a day for 10 days Therapy completed 12/03/2020 12/14/2020 oxyCODONE (ROXICODONE) 5 mg immediate release tabletIndications:Pain Take 1 tablet (5 mg total) by mouth every 4 (four) hours as needed for pain Therapy completed 11/25/2020 12/14/2020 documented as of this encounter Care Teams Erosion Control Specialist Relationship Specialty Start Date End Date Crispin Shen MD Surgeon Colon and Rectal Surgery 09/09/20 documented as of this encounter
--- OUTSIDE RECORDS SUMMARY | 2024-08-18 09:56 | XMS_ITS | Encounter Summary ---
Author Organization [facility] Address [address] [place] [address] Care Team Providers Care Customer Leader Name Role Phone Crispin Shen MD Unavailable Encounter Details Date Type Department Care Team (Late st Contact Info) Description 09/10/2020 8:00 AM SNAP ATTACHER - 09/10/2020 8:45 AM SNAP ATTACHER Surgery [facility] Operating Room [address] [place] [address] Crispin Shen MD [address] [facility] [place] [phone] [place] [address] EXAM UNDER ANESTHESIA - RECTUM Surgery Details Date/Time Status Location OR Service Patient Class Case Cl ass Case Type Trauma Case? 09/10/2020 8:00 AM Posted [facility] OPERATING ROOM OR 06 Colorectal Outpatient Elective Panel 1 Procedure LRB Anes Op Region Wound Class Comments EXAM UNDER ANESTHESIA - RECTUM N/A Monitor Anesthesia Care Anus Class IV - Dirty or Infected PLACEMENT SETON N/A Monitor Anesthes ia Care Face Class II - Clean Contaminated Surgeon Surgeon Role Service Panel Crispin Shen MD Primary Colorectal 1 Horace Escoto MD Resident - Assisting Evon baum 1 documented in this encounter Social History Tobacco Use Types Packs/Day Years Used Date Smoking Tobacco: Never Smokeless Tobacco: Never Alcohol Use Standard Drinks/Week Comments Not Currently 0 (1 standard drink = 0.6 oz pur e alcohol) Comments No Sex and Gender Information Value Date Recorded Sex Assigned at Not on file Legal Sex Female 9:36 AM SNAP ATTACHER Gender Identity Female 11/16/2020 2:58 PM CDT Sexual Orientation Straight 11/16/2020 2: 58 PM CDT documented as of this encounter Last Filed Vital Signs Vital Sign Reading Time Taken Comments Blood Pressure 99/58 09/10/2020 8:45 AM SNAP ATTACHER Pulse 88 09/10/2020 8:45 AM SNAP ATTACHER Temperature 36.3 ??C (97.3 ??F) 09/10/2020 8:29 AM CS T Respiratory Rate 23 09/10/2020 8:45 AM SNAP ATTACHER Oxygen Saturation 99% 09/10/2020 8:45 AM SNAP ATTACHER Inhaled Oxygen Concentration - - Weight 90.7 kg (200 lb) 09/10/2020 6:30 AM SNAP ATTACHER Height 177.8 cm (5' 10 ) 09/10/2020 6:30 AM SNAP ATTACHER Body Mass Index 28.7 09/10/2020 6:30 AM SNAP ATTACHER documented in this encounter Medications at Time [...] EXAM UNDER ANESTHESIA - RECTUM PLACEMENT SETON ATTACHER Source Note - Crispin Shen MD - 08/31/2020 10:30 AM SNAP ATTACHER Colorectal Surgery Consultation Consult requested by Kaitlyn [...] it here versus doing it back in [place]. I told them that was more than [...] they want to continue the treatment in [place] or transfer down here. Crispin Shen MD 08/31/2020 12:35 PM ATTACHER * Horace Escoto MD - 09/10/2020 6:40 [...] Crispin Shen MD at 09/23/2020 11:25 AM SNAP ATTACHER ATTACHER ATTACHER Source Note - Cielo Mariee NP - 09/06/2020 10:05 AM SNAP ATTACHER Images from the original note were not included. [facility] Planning Preoperative Evaluation Record Evaluation type/location: TPAP from [facility] Planned procedure site: [facility] OR Date: 09/06/20 NOTE: This note represents [...] CA ; CABG ; valvular heart disease; atrial [...] COVID19 testing to be performed on 09/07/2020. [facility] will place the order for testing. Result [...] last 720 hours. Sandeep index score: 100 ATTACHER documented in this encounter Miscellaneous Notes * Perioperative Nursing Note - Fernanda Ramirez RN - 09/10/2020 8:33 AM SNAP ATTACHER Vessel loop/seton placed and secured by Dr. Shen ATTACHER * Op Note - Crispin Shen MD [...] the entire procedure from start to finish ATTACHER * Pre-Procedure Instructions - Cieol Mariee NP - 09/06/2020 9:10 AM CST [facility] CPAP Clinic Location: [facility] The night before your surgery: [...] bowel prep or special diet before surgery ATTACHER * Pre-Procedure Instructions - Yvonne Vieyra RN - 09/02/2020 3:08 PM SNAP ATTACHER PRE-SURGICAL INSTRUCTIONS ??? General Information ?? Surgery [...] insurance card, a photo ID (like a Asphalt Spreader's license) and a method of payment for [...] CCOVID Test Request Placed in Epic to [facility]. Test to be performed on 09/08/2020 at [place], [place] location If you have COVID testing or should have COVID testing for your surgery/procedure, please read below section: If you need to reschedule your COVID test to a different location or if your surgery gets rescheduled, you MUST call [phone] Sunday-Sunday 8am-4:30pm to get your COVID testing rescheduled or your lab order will not be available at Testing Sites. COVID Testing is only valid for up to 96 hours prior to surgery date, unless otherwise specified. If you are unable to reach staff at the above phone number, please call the CPAP Staff at [phone]. This number cannot order a lab test, [...] 20 seconds. Use an alcohol- based hand instrument maker and repairer that contains at least 60% alcohol if soap and water are not available. All patients should read below section: All visitors/patients are being asked to wear a clean mask when entering the hospital. COVID 19 Updates & Visitor Policy: Please access [email or web address] for the most updated information. Information on [facility]: Please view [email or web address] (Patient & Visitor Information) for additional details regarding Advanced Directive forms, AWARE, directions, parking information, lodging, Internet access, dining and more. Information on [facility]: Please view [email or web address] (Patient and Visitor Information) for parking/directions and more. Surgery Times: ??? For patients having surgery @ [facility] Medicine[facility], if your surgeon's office has not notified you of your surgery time by NOON THE BUSINESS DAY BEFORE your surgery, please call [phone] and ask for your surgeon's office Dr. Crispin Shen ATTACHER ATTACHER documented in this encounter Plan of Treatment Not on file documented as of this encounter Procedures Procedure Name Priority Date/Time Associated Diagnosis Comments POCT HCG, URINE Routine 09/10/2020 10:02 AM SNAP ATTACHER PLACEMENT SETON 09/10/2020 8:11 AM SNAP ATTACHER Rectovaginal fistula EXAM UNDER ANESTHESIA - RECTUM 09/10/2020 8:11 AM SNAP ATTACHER Rectovaginal fistula documented in this encounter Results * POCT hCG, urine (09/10/2020 10:02 AM SNAP ATTACHER) HCG, ur, POC Negative Lot Number [id number] QC Backgroud Clear Acceptable QC Control Line Acceptable Urine 09/10/2020 10:0 2 AM SNAP ATTACHER Historical Provider POINT OF CARE TEST ORDERA [...] MAR Action Action Date Dose Rate Site bupivacaine-EPINEPHrine (MARCAINE with EPI) 0.25 %-1:200,000 preservative free injection As needed, Starting on Sun09/10/20 at 0821, Intra-Op Given 09/10/2020 8:21 AM SNAP ATTACHER 40 mL Surgical Site Lactated Ringer's (LR) infusion 30 mL/hr, intravenous, Continuous, Starting on Sun09/10/20 at 0730, Pre-Op, Use a 500 ml bag for End Stage Renal Disease Patients New Bag 09/10/2020 7:42 AM SNAP ATTACHER 30 mL/hr 30 mL/hr sodium chloride 0.9 % irrigation As needed, Starting on Sun09/10/20 at 0822, Intra-Op Given 09/10/2020 8:22 AM SNAP ATTACHER 250 mL Surgical Site documented in this encounter Discontinued Medications Medication Sig Discontinue Reason Start Date End Da te topiramate (TOPAMAX) 50 mg tablet Take 50 mg by mouth 2 (two) times a day Error 08/07/2020 09/02/2020 documented as of this encounter Active and Recently Administered Medications Times are shown in SNAP ATTACHER. Continuous Medication Order 09/08/2020 09/09/2020 09/10/2020 Lactated [...] 1st line pain med for patients at [facility]. Use as 2nd line at [facility] after [...] Date acetaminophen (TYLENOL) tablet 500 mg 1 diphenhydrAMINE (BENADRYL) i njection 12.5 mg 1 09/10/2020 fentaNYL (SUBLIMAZE) preserv ative free injection 25 mcg 1 09/10/2020 HYDROcodone-acetaminophen (N ORCO) 5-325 mg per tablet 1 tablet 1 09/10/2020 HYDROmorphone (DILAUDID) injection 0.2 mg 1 [...] hour 1 patch 1 021 sodium chloride 0.9% flush 0.5-20 mL 1 08/21 Diet Count Last Ordered Date First Orde red Date ADULT DISCHARGE DIET 1 09/10/2020 Nursing Count Last Ordered Date First Orde red Date DISCHARGE ACTIVITY 1 09/10/2020 DISCHARGE CALL PROVIDER 1 09/10/2020 DISCHARGE INSTRUCTIONS 1 09/10/2020 documented in this encounter Care Teams Customer Leader Relationship Specialty Start Date End Date Crispin Shen MD Surgeon Colon and Rectal Surgery 09/09/20 documented as of this encounter
--- OUTSIDE RECORDS SUMMARY | 2024-08-18 09:56 | XMS_ITS | Encounter Summary ---
Author Organization [facility] Address [address] [place] [address] Phone Care Team Providers Care Electronic Parts Designer Name Role Phone Crispin Shen MD Unavailable [phone] Encounter Details Date Type Department Care Team (Late st Contact Info) Description 12/21/2020 Telephone [facility] Surgery [address] [facility] Advanced Medicine 6th [place] [address] [place] [address] Sakina Day LPN Social History Tobacco Use Types Packs/Day [...] often do you attend chur ch or pentecostal services? 1 to 4 times per year [...] file Legal Sex Female 9:36 AM DIRECTOR CLINICAL PHARMACOLOGY Gender Identity Female 11/16/2020 2:58 PM CDT Sexual Orientation Straight 11/16/2020 2: 58 PM CDT documented as of this encounter Miscellaneous Notes * Telephone Encounter - Vincenzo Ho MA - 12/21/2020 4:15 PM CDT Spoke w/patient. Patient is going to see colo-rectal. * Telephone Encounter - Sakina Chester LPN - 12/21/2020 10:29 AM CDT Patient called requesting to speak with Bob. She states she is having some concerns and has already contacted Dr. Shen's office who told her to follow up with Dr. Guidry office. She can be reached [phone] documented in this encounter Plan of Treatment Not on file documented as of this encounter Visit Diagnoses Not on filedocumented in this encounter Care Teams Electronic Parts Designer Relationship Specialty Start Date End Date Crispin Shen MD Surgeon Colon and Rectal Surgery 09/09/20 documented as of this encounter
--- OUTSIDE RECORDS SUMMARY | 2024-08-18 09:56 | XMS_ITS | Encounter Summary ---
Author Organization [facility] Address [address] [place] [address] Care Team Providers Care Bow Tacker Name Role Phone Unavailable Primary Care Provider Unavailabl e Encounter Details Date Type Department Care Team (Late st Contact Info) Description 09/02/2020 Orders Only [facility] Testing Site - [address] [address] Crispin Moffett MD [address] [facility] [phone] [place] [address] Pre-procedure lab exam (Primary Dx) Social History Tobacco Use Types Packs/Day Years Used Date Smoking Tobacco: Never Smokeless Tobacco: Never Alcohol Use Standard Drinks/Week Comments Not Currently 0 (1 standard drink = 0.6 oz pur e alcohol) Comments Unknown Sex and Gender Information Value Date Recorded Sex Assigned at Not on file Legal Sex Female 9:36 AM TOEING STOCKINGS Gender Identity Female 11/16/2020 2:58 PM CDT Sexual Orientation Straight 11/16/2020 2: 58 PM CDT documented as of this encounter Progress Notes * Leticia Wilhelm - 09/02/2020 3:27 PM CST Ordering User: Yvonne Vieyra RN Auth Provider: CRISPIN MOFFETT Provider: ?? Diagnosis: ?? Department: ?? Sched Instruct: ?? Comment: ?? Order Specific Questions Question Answer Comment Testing types: Pre-procedure ?? Date of Px/chemo/treatment/placement/transfer 09/10/2020 ?? Testing site patient will be sent to: [place], [place] ?? Date testing requested: 09/08/2020 ?? Testing: COVID-RNA ?? Is this the first COVID-19 test for this patient? No ?? Does the patient currently work in a healthcare facility with direct patient contact? No ?? Is the patient a resident of a congregate care or living setting? No ?? Is the patient ? No ?? Please select the performing region: [facility] ?? Referral Notes NG STOCKINGS documented in this encounter Plan of Treatment Not on file documented as of this encounter Results * COVID-19 Coronavirus RNA Nasopharyngeal (09/07/2020 11:38 AM TOEING STOCKINGS) COVID-19 RNA Not Detected CERYazmin [facility] ([place]) Comment: Testing performed as a component of ??a specimen pool. ??Negative results should be treated as presumptive and, if inconsistent with clinical signs and symptoms or necessary for patient management, pooled samples should be tested individually. Negative results do not preclude SARS-CoV-2 infection and must not be used as the sole basis for patient management decisions. Negative results must be considered in the context of a patient? s recent exposures, history, presence of clinical signs and symptoms consistent with COVID-19. Interpretive Data Testing performed by the [facility]ious [facility]. The 2019-Novel Coronavirus Assay (COVID-19) Real Time RT-PCR assay is for in vitro diagnostic use under FDA emergency use authorization only. A negative RT-PCR result does not preclude infection with COVID-19 and should not be used as the sole basis for treatment or other patient management decisions. Additional sample types have been validated according to CLIA regulations. ?? Current Interpretive Data was last revised on 2019. Testing performed by: [facility], [address] [place]., [address] First COVID-19 test? No [facility] ([place]) Comment:Testing performed by : [facility], [address] [facility], [address] Employeed in healthcare? No JAZZ FOSTER ([place]) Comment:Testing performed by : [facility], [address] [facility], [address] status? No CE ANGEL FOSTER ([place]) Comment:Testing performed by : [facility], [address] [facility], [address] Group care resident? No JAZZ FOSTER ([place]) Comment:Testing performed by : [facility], [address] [place] [address], [address] Hospitalized? No JAZZ FOSTER ([place]) Comment:Testing performed by : [facility], [address] [facility], [address] Is patient in ICU? No JAZZ FOSTER ([place]) Comment:Testing performed by : [facility], [address] [place] [address], [address] Symptomatic as defined by CDC? No JAZZ FOSTER ([place]) Comment:Testing performed by : [facility], [address] [place] [address], [id number] Nasopharyngeal 09/07/2020 11 :38 AM TOEING STOCKINGS 09/07/2020 8:49 PM TOEING STOCKINGS Narrative JAZZ FOSTER ([place]) - 09/08/2020 3:49 AM TOEING STOCKINGS What is the reason for testing?->Screening prior to scheduled procedure or surgery us Crispin Moffett MD LAB MICROBIOLOGY - GENERAL ORD ERABLES Final Result JAZZ FOSTER ([place]) [address] [facility] Department [place] [address] documented in this encounter Visit Diagnoses Diagnosis Pre-procedure lab exam- Primary Pre-procedural laboratory examination Pre-procedure lab exam Pre-procedural laboratory examination documented in this encounter
--- OUTSIDE RECORDS SUMMARY | 2024-08-18 09:56 | XMS_ITS | Encounter Summary ---
Author Organization [facility] Address [address] [facility] [address] [place] [address] Phone Care Team Providers Care Circle Shear Operator Name Role Phone Crispin Shen MD Unavailable [phone] Reason for Visit * Reason Comments Post-op Visit ILEOSTOMY IN PLACE * Consultation (Routine) - Closed Specialty Diagnoses / Procedures Referred By Contac t Referred To Contact Surgery / Colon and Rectal Surgery Diagnoses Rectovaginal fistula Kaitlyn Bowen MD [address] [place] [address] Phone: tel: fax: Crispin Shen MD [address] [phone] [place] [address] Phone: tel: fax: Referral ID Status Reason Start Date Expiration Date V isits Requested Visits Authorized [id number] Closed Specialty Services Required 11/26/2020 12/26/2021 2 2 Encounter Details Date Type Department Care Team (Late st Contact Info) Description 01/18/2021 8:00 AM CDT Office Visit [facility] Surgery [address] [facility] 8th [place] [address] [place] [id number] Crispin Shen MD [address] [facility] [place] [phone] [place] [address] Rectovaginal fistula (Primary Dx) Social History Tobacco [...] often do you attend chur ch or lutheran services? 1 to 4 times [...] on file Legal Sex Female 9:36 AM WOODWORKING SHOP LABORER Gender Identity Female 11/16/2020 2:58 PM CDT Sexual Orientation Straight 11/16/2020 2: 58 PM CDT documented as of this encounter Last Filed Vital Signs Vital Sign Reading Time Taken Comments Blood Pressure 133/82 01/18/2021 8:12 AM CDT Pulse 76 01/18/2021 8:12 AM CDT Temperature 36.5 ??C (97.7 ??F) 01/18/2021 8:12 AM CD T Respiratory Rate - - Oxygen Saturation - - Inhaled Oxygen Concentration - - Weight 103 kg (227 lb) 01/18/2021 8:12 AM CDT Height 177.8 cm (5' 10 ) 01/18/2021 8:12 AM CDT Body Mass Index 32.57 01/18/2021 8:12 AM CDT documented in this encounter Progress Notes * Crispin Shen MD - 01/18/2021 8:00 AM [...] female documented in this encounter Care Teams Circle Shear Operator Relationship Specialty Start Date End Date Crispin Shen MD Surgeon Colon and Rectal Surgery 09/09/20 documented as of this encounter
--- OUTSIDE RECORDS SUMMARY | 2024-08-18 09:56 | XMS_ITS | Encounter Summary ---
Author Organization [facility] Healthcare Address [address] [place] [address] Care Team Providers Care High Lighter Name Role Phone Crispin Shen MD Unavailable [phone] Encounter Details Date Type Department Care Team (Latest Contact Info) Description 11/24/2020 6:30 AM CDT - 11/26/2020 1:40 PM CDT Hospital Encounter [facility] [address] [place] [id number] Crispin Shen MD [address] [facility] [phone] [place] [address] Discharge Disposition: Discharge to home or self [...] How often do you attend chur or catholic services? 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 Gender Identity Female 11/16/2020 2:58 PM CDT Sexual Orientation Straight 11/16/2020 2: 58 PM CDT documented as of this encounter Last Filed Vital Signs Vital Sign Reading Time Taken Comments Blood Pressure 113/59 11/26/2020 11:36 AM CDT Pulse 83 11/26/2020 11:36 AM CDT Temperature 36.8 ??C (98.2 ??F) 11/26/2020 11:36 AM C DT Respiratory Rate 16 11/26/2020 11:36 AM CDT Oxygen Saturation 96% 11/26/2020 11:36 AM CDT Inhaled Oxygen Concentration - - Weight 101.2 kg (223 lb) 11/24/2020 7:35 PM CDT Height 177.8 cm (5' 10 ) 11/24/2020 7:35 PM CDT Body Mass Index 32 11/24/2020 7:35 PM CDT documented in this encounter Discharge Diagnoses Diagnosis Fistula of vagina to large intestine - FISTULA OF VAGINA TO LARGE INTESTINE Other female genital tract fistulae - OTHER FEMALE GENITAL TRACT FISTULAE Anxiety disorder, unspecified - ANXIETY DISORDER, UNSPECIFIED Major depressive disorder, single episode, unspecified - MAJOR DEPRESSIVE DISORDER, SINGLE EPISODE, UNSPECIFIED Obesity, unspecified - OBESITY, UNSPECIFIED Body mass index (BMI) 32.0-32.9, adult - BODY MASS INDEX [BMI] 32.0-32.9, ADULT Encounter for attention to colostomy (HCC) - ENCOUNTER FOR ATTENTION TO COLOSTOMY Anal fistula - ANAL FISTULA documented in this encounter Discharge Summaries * Darline Sheth MD - 11/26/2020 10:52 AM CDT Inpatient Discharge Summary BRIEF OVERVIEW Admitting Provider: Crispin Shen MD Discharge Provider: Crispin Shen MD Primary Care Physician at Discharge: Monico Reynoso MD [phone] Admission Date: 11/24/2020 Discharge Date: 11/26/2020 Admission Location: [facility] Problems/Diagnoses: Principal Problem: Rectovaginal fistula Resolved Problems: [...] provider for: any other concerns or questions [phone] Call provider if: you feel dizzy, very [...] to home with significant other, Richelle Coto [phone] to provide transportation. sent several referral for home health for drain care but an accepting agency was not able to be established. * Darline Sheth MD - 11/26/2020 10:18 AM CDT [facility] Daily Progress Note Colon and Rectal Surgery [...] JVD. GI: Abdomen soft, non-tender, non-distended. Ostomy: [place]end[place], stool present. Wound: Incision clean, dry, intact [...] today - [facility], O[facility] - DC today Darline Sheth MD. Cosigned by Crispin Shen MD at 11/29/2020 12:12 PM CDT * Chrissy Madera MD - 11/26/2020 7:06 AM CDT Plastic Surgery Daily Progress PRS resident contact 7a-5p: [phone] Bleem Smith : 1970 Subjective Interval History: No acute events overnight. AFVSS. Pain controlled. Ambulating without issue. WBC 9.4 (15.2), Hgb 10.9 (11.2). FE thigh 100 (15) FE perineal 15 (20) Objective Recent Vitals(24hr Range): Vitals: 11/26/20 0555 BP: 107/59 Pulse: 79 Resp: 18 Temp: 36.8 ??C (98.2 ??F) SpO2: 96% I and Os: I/O last 3 completed shifts: In: 4930 [P.O.:4000; I.V.:930] Out: 87248 [Urine:73809; Drains:145; Stool:650] No intake/output data recorded. Meds: Current Facility-Administered Medications: ??? acetaminophen (TYLENOL) tablet 1,000 mg, 1,000 mg, oral, Q6H Jevon ELIZONDO Gregory Kahler, MD, 1,000 mg at 11/26/20 0554 ??? enoxaparin (LOVENOX) syringe 40 mg, 40 mg, subcutaneous, Daily-2099, Horace Escoto MD, 40 mg at 11/25/20 210 ??? gabapentin (NEURONTIN) capsule 300 mg, 300 mg, oral, Q12H Jevon ELIZONDO Gregory Kahler MD, 300 mg at 11/25/202100 ??? ketorolac (TORADOL) injection 15 mg, 15 mg, intravenous, Q8H CARO, 15 mg at 11/26/20 0554 FOLLOWED BY [START ON 11/27/2020] ibuprofen (ADVIL,MOTRIN) tablet 600 mg, 600 mg, oral, Q8H CAROJevon Gregory Kahler, MD ??? LORazepam (ATIVAN) tablet 0.5 mg, [...] flush 0.5-20 mL, 0.5-20 mL, intra-catheter, Q8H SCIONHEALTHJevon Gregory Kahler, MD, 10 mL at 11/26/20 0556 ??? [...] Follow up: with Dr. Guidry on 12/03 [facility], [address], call [phone] to schedule Chrissy Madera MD 11/26/2020 If you have questions, please check Amion to find the resident responsible for this patient's care.If uncertain, please call: 7AM - 5PM please call the Plastic Surgery Consult Pager [phone] to be directed to thecorrect Plastic Surgery resident. Weeknights 5PM - 7AM, All day on Weekends, All day on Holidays please call the Library Page to find theOn Call Plastic Surgery resident [...] setting Prior Function Prior Function Level of Crockett: Independent functional transfers, Independent with ambulation Lives With: Alone Receives Help From: Family, Spouse/Significant other(general studies program chair assist until 12/12) Fall within the last [...] treatment team and contact the PT or B OPERATOR currently assigned to this patient. If a physical therapy clinician is not assigned to this patient, please call [phone]. * Nubia Bradley, OT - 11/25/2020 9:45 AM CDT Occupational [...] assisted pt. out of recliner immediately. Notified MD Dr. Lukas PEREZ, and therapy hydro station supervisor Mariama Escamilla Per phone conversation with Dr. [...] to maintain RLE precautions. Pt. tri aled net web application developer to assist with donning underwear this date with mod verbal cueing for sequencing. Educated pt. on use of sock aid, however, pt. reports that she will have her daughter to assist or abstain from wearing socks. Pt. educated on where to purchase net web application developer; pt. verbalized understanding. Pt. 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 Notified RNMD Dr. Gaytan, and therapy hydro station supervisor Mariama Escamilla Per phone conversation with Dr. [...] dressing to maintain RLE precautions. Pt. tri artd net web application developer to assist with donning underwear this date with mod verbal cueing for sequencing. Educated pt. on use of sock aid, however, pt. reports that she will have her daughter to assist or abstain from wearing socks. Pt. educated on where to purchase net web application developer; pt. verbalized understanding. Pt. left lying supine [...] not assigned to this patient, please call [phone]. * Leticia Mcleod NP - 11/25/2020 8:56 AM CDT [facility] Daily Progress Note Colon and Rectal Surgery [...] Pulse: 87 88 86 87 Resp: 16 18 20 19 Temp: 37 ??C (98.6 ??F) 36.4 [...] JVD. GI: Abdomen soft, non-tender, non-distended. Ostomy: [place]end[place], no stool/flatus present. Wound: Incision clean, dry, [...] OOB - ARBF - IS Leticia Mcleod CANDY SPREADER-BC Cosigned by Crispin Shen MD at 11/29/2020 12:12 PM CDT * Chrissy Madera MD - 11/25/2020 7:29 AM CDT Plastic Surgery Daily Progress PRS resident contact 7a-5p: [phone] Belem Smith : 1970 Subjective Interval History: [...] tablet 1,000 mg, 1,000 mg, oral, Q6H Jevon ELIZONDO Gregory Kahler, MD, 1,000 mg at 11/25/20429 ??? enoxaparin (LOVENOX) syringe 40 mg, 40 mg, subcutaneous, Daily-2100, Horace Escoto MD, 40 mg at 11/24/202057 ??? gabapentin (NEURONTIN) capsule 300 mg, 300 mg, oral, Q12H Jevon ELIZONDO Gregory Kahler, MD, 300 mg at 11/24/202057 ??? HYDROmorphone (DILAUDID) injection 0.2 mg, 0.2 mg, intravenous, Q4H PRN, Horace Escoto MD, 0.2 mg at 11/25/20435 ??? ketorolac (TORADOL) injection 15 mg, 15 mg, intravenous, Q8H CARO, 15 mg at 11/25/20429 FOLLOWED BY [START ON 11/27/2020] ibuprofen (ADVIL,MOTRIN) tablet 600 mg, 600 mg, oral, Q8H Jevon ELIZONDO Gregory Kahler, MD ??? LORazepam (ATIVAN) tablet 0.5 mg, [...] perspective. Follow up: with Dr. Guidry in [address] [place] [address] Plastic Surgery Clinic, [address], call [phone] to schedule Chrissy Madera MD 11/25/2020 If you have questions, please check Amion to find the resident responsible for this patient's care.If uncertain, please call: Weekdays 7AM - 5PM please call the Plastic Surgery Consult Pager [phone] to be directed to thecorrect Plastic Surgery resident. Weeknights 5PM - 7AM, All day on Weekends, All day on Holidays please call the Library Page to find theOn Call Plastic Surgery resident [...] tablet 1,000 mg, 1,000 mg, oral, Q6H Jevon ELIZONDO Gregory Kahler, MD, 1,000 mg at 11/24/20 1736 ??? [...] intravenous, Q8H CARO, 15 mg at 11/24/20 173 FOLLOWED BY [START ON 11/27/2020] ibuprofen (ADVIL,MOTRIN) [...] flush 0.5-20 mL, 0.5-20 mL, intra-catheter, PRN, Low, Horace Blankenship MD Facility-Administered Medications Ordered in Other Encounters: [...] Jackson Gaytan MD PhD PGY-3, Plastic Surgery [phone] 11/24/2020 If you have questions, please check Nallely (PRS) to find the resident responsible for this patient'scare. If uncertain, please call: Weekdays 7AM - 5PM please call the Plastic Surgery Consult Pager [phone] to be directed to thecorrect Plastic Surgery resident. Weeknights 5PM - 7AM, All day on Weekends, All day on Holidays please call the Library Page to find theOn Call Plastic Surgery resident Cosigned by Cyndee Guidry MD PhD at 11/26/2020 5:05 PM CDT * June Galeano RN - 11/24/2020 4:30 PM CDT CM Initial Assessment Interview Note Information Obtained From: Patient (11/24/20 1627) Admission Source: non health care facility Impression: Gracillis flap repair of anal vaginal fistula and colostomy revision Plan Includes: Patient to discharge to home with family, discharge needs pending Primary Source of Transportation: Does the patient need discharge transport arranged?: No (11/24/20 1630) Health Insurance Coverage: [employer] Prescription Coverage: Prescription coverage verified Pharmacy: [place], [place] Primary Care Provider: Monico Reynoso MD Prior to Admission: Primary Caregiver: Self Support System: Spouse/Significant Other Support system contact info (name, phone, availablity): significant otherRichelle Home Care Services: No Durable Medical Equipment: [...] expects to be Discharged to: Private residence, (11/24/201628) Additional Information: Patient lives in a private [...] Collaboration with patient, MD, direct care nurse, Sock Lining Examiner, Nurse Coordinator and other members of the health care team to assure needed interventions completed. 2. Return patient to optimal level of self-care post discharge. 3. Central Office Technician will follow for Discharge Planning - interventions [...] and Planning Preoperative Evaluation Record Evaluation type/location: [facility] Planned procedure site: [facility] OR (Pod 1) Date: 11/22/20 Anesthesia [...] 4 days. Pre-procedure COVID19 testing performed at [facility]. Result pending- to be reviewed by surgeon's [...] List Status: Nurse Complete Set By: Libby Henderson, CHRIS at 11/22/2020 4:14 PM Taking? Last Dose [...] zinc 50 mg tablet 11/21/2020 -- -- Tyra Crawford MD Current Outpatient [...] care. Patient sent referrals through [facility] to Tess KUNZ, Ruddy and [facility]. Addendum 11:41 CM received following [facility] responses: Tess- Allscript text received, declining referral Ruddy-declined, not in network with insurance [facility]-declined referral, out of service area CM sent additional referrals to: [facility]-CM received call from Hanna declining referral,can not service this area [facility]- Allscript text received declining referral, out of network [facility]- CM received voicemail from ramona Agarwal to [...] as co-surgeon was necessary because I have nondestructive tester in harvesting a gracillis flap. ANESTHESIA: General [...] general anesthesia in the lithotomy position. Several [id number] silk sutures were used to close off [...] we were able to isolate the fistula. The fistula was divided. Our dissection was then carried out in the virgin rectovaginal septal plane about 3-4 cm above the level of the fistula. Hemostasis was obtained with FloSeal. Dr. Guidry then came to the room and harvested the gracilis flap. We assisted them in the tunneling of the flap down into the wound. They closed the leg. Their portion will be dictated separately. Once we had the gracillis flap tunneled into our wound, we used multiple two 0 Vicryl sutures to secure it into our pocketin the perineal body. Hemostasis was confirmed. The 10 Swedish drain was then placed through the right [...] the procedure Surgeon: Cyndee Guidry MD PhD Pharmacy Innovation Assistant Surgeons: Kurt Saha MD, Candice Tyler MD [...] hemostasis was made with the Bovie.A 15 Swedish FE drain was inserted from distal to [...] Guidry MD PhD - Primary * Kurt Saah MD - Resident - Assisting * Candice Tyler MD - Resident - Assisting Anesthesiologist: Niyah Michele MD MEAT GRADING MACHINE OPERATOR: Cee Rosado CRNA Color Shop Helper: Nathaniel Dickerson RN; Martinez David RN Color Shop Helper Relief: Sveta Vallejo RN Scrub Relief: Sveta [...] CDT) Sodium 138 135 - 145 mmol/L [facility] Potassium, pl 4.0 3.3 - 4.9 mmol/L [facility] Chloride 107 97 - 110 mmol/L [facility] CO2 26 22 - 32 mmol/L [facility] Anion gap 5 2 - 15 mmol/L [facility] BUN 26(H) 8 - 25 mg/dL [facility] Creatinine 0.89 0.60 - 1.10 mg/dL [facility] Glucose 95 70 - 199 mg/dL [facility] Comment: Interpretive Data Fasting glucose >/= [...] 2017. Calcium 8.3(L) 8.5 - 10.3 mg/dL [facility] Blood specimen (specimen) 11/25/2020 9:47 PM CDT 11/25/2020 10:42 PM CDT Narrative [facility] - 11/25/2020 11:08 PM CDT Obtain POD 1 at 2200. Crispin Shen MD LAB BLOOD ORDERABLES Final Res ult Performing Organization Address City/[facility] Co de Phone Number [facility] Department [place] [address] * (ABNORMAL) CBC without differential (11/25/2020 9:47 PM CDT) Pathologist [facility] WBC 9.4 3.8 - 9.9 K/cumm [facility] Hgb 10.9(L) 11.9 - 15.5 g/dL [facility] Hct 33.6(L) 35.6 - 45.5 % [facility] Plt 180 150 - 400 K/cumm [facility] MPV 11.3 9.1 - 12.3 fL [facility] RBC 3.56(L) 3.90 - 5.20 M/cumm [facility] MCV 94.4 81.3 - 96.4 fL [facility] MCH 30.6 27.1 - 33.3 pg [facility] MCHC 32.4 32.3 - 35.7 g/dL [facility] RDW CV 13.2 11.1 - 14.9 % [facility] RDW SD 45.7 35.7 - 48.1 fL [facility] NRBC abs 0.00 0.00 - 0.01 K/cumm [facility] Blood specimen (specimen) 11/25/2020 9:47 PM CDT 11/25/2020 10:42 PM CDT Narrative [facility] - 11/25/2020 10:49 PM CDT Obtain POD 1 at 2200. Crispin Shen MD LAB BLOOD ORDERABLES Final Res ult Performing Organization Address City/[facility] Co de Phone Number [facility] Department [place] [address] * Basic metabolic panel (11/24/2020 11:13 PM CDT) Pathologist [facility] Sodium 136 135 - 145 mmol/L [facility] Potassium, pl 4.7 3.3 - 4.9 mmol/L [facility] Chloride 104 97 - 110 mmol/L [facility] CO2 27 22 - 32 mmol/L [facility] Anion gap 5 2 - 15 mmol/L [facility] BUN 11 8 - 25 mg/dL [facility] Creatinine 0.89 0.60 - 1.10 mg/dL [facility] Glucose 166 70 - 199 mg/dL [facility] Comment: Interpretive Data Fasting glucose >/= [...] 2017. Calcium 8.5 8.5 - 10.3 mg/dL [facility] Blood specimen (specimen) 11/24/2020 11:13 PM CDT 11/24/2020 11:40 PM CDT Narrative [facility] - 11/25/2020 12:05 AM CDT Obtain POD 0 at 2200. us Crispin Shen MD LAB BLOOD ORDERABLES Final Res ult [facility] Department [place] [address] * (ABNORMAL) CBC without differential (11/24/2020 11:13 PM CDT) Pathologist [facility] WBC 15.2(H) 3.8 - 9.9 K/cumm [facility] Hgb 11.2(L) 11.9 - 15.5 g/dL [facility] Hct 33.8(L) 35.6 - 45.5 % [facility] Plt 221 150 - 400 K/cumm [facility] MPV 10.8 9.1 - 12.3 fL [facility] RBC 3.65(L) 3.90 - 5.20 M/cumm [facility] MCV 92.6 81.3 - 96.4 fL [facility] MCH 30.7 27.1 - 33.3 pg [facility] MCHC 33.1 32.3 - 35.7 g/dL [facility] RDW CV 13.0 11.1 - 14.9 % [facility] RDW SD 43.7 35.7 - 48.1 fL [facility] NRBC abs 0.00 0.00 - 0.01 K/cumm [facility] Blood specimen (specimen) 11/24/2020 11:13 PM CDT 11/24/2020 11:40 PM CDT Narrative [facility] - 11/24/2020 11:47 PM CDT Obtain POD 0 at 2200. Crispin Shen MD LAB BLOOD ORDERABLES Final Res ult Performing Organization Address City/[facility]/ZIP Co de Phone Number [facility] Department [place] [employer] [place] [address] * Check Sample (11/24/2020 7:45 AM CDT) ABO Rh B Positive [facility] HCLL OTHER 11/24/2020 7:45 AM CDT 11/24/2020 7:58 AM CDT Crispin Shen MD LAB BLOOD ORDERABLES Final Res ult Performing Organization Address [facility]/ZIP Co de Phone Number [facility] [place] [address] documented in this encounter Visit Diagnoses Diagnosis Rectovaginal fistula- Primary Digestive-genital tract fistula, female documented in this encounter Admitting Diagnoses Diagnosis Rectovaginal fistula Digestive-genital tract fistula, female documented in this encounter Administered Medications Inactive Administered Medications - up to 3 most recent administrations Medication Order MAR Action Action Date Dose Rate Site acetaminophen (TYLENOL) tablet 1,000 mg 1,000 mg, oral, Once, On Sun11/24/20 at 0715, For 1 dose, Pre-Op, Give upon arrival to holding area. , Indications: Pre-Emptive AnalgesiaIndications:Pre-Emptive Analgesia Given 11/24/2020 7:30 AM CDT 1,000 mg acetaminophen (TYLENOL) tablet 1,000 mg 1,000 mg, oral, Every 6 hours scheduled, First dose on Sun11/24/20 at 1530, Indications: PainIndications:Pain Given 11/26/2020 1:25 PM CDT 1,000 mg Given 11/26/2020 5:54 AM CDT 1,000 mg Given 11/25/2020 9:00 PM CDT 1,000 mg alvimopan (ENTEREG) capsule 12 mg 12 mg, oral, Once, On Sun11/24/20 at 0715, For 1 dose, Pre-Op, Give immediately upon arrival to holding area (do not prescribe if patient is currently receiving chronic opioid treatment). , Indications: Postoperative Ileus, Postoperative ileus prophylaxisIndications:Postop erative Ileus,Postoperative ileus prophylaxis Given 11/24/2020 7:30 AM CDT 12 mg dextrose 5% and sodium chloride 0.45% with potassium chloride 20 mEq/L infusion (premix) 75 mL/hr, intravenous, Continuous, Starting on Sun11/24/20 at 1400, For 16 hours, Phase I & Post-op Floor, Discontinue after breakfast post-op day 1. Rate/Dose Verify 11/25/2020 6:57 AM CDT 75 mL/hr 75 mL/hr Rate/Dose Verify 11/25/2020 4:41 AM CDT 75 mL/hr 75 mL/h r New Bag 11/25/2020 1:35 AM CDT 75 mL/hr 75 mL/hr enoxaparin (LOVENOX) syringe 40 mg 40 mg, subcutaneous, Daily (for enoxaparin), First dose on Sun11/24/20 at 2100, Indications: Deep Vein Thrombosis PreventionIndications:Deep Vein Thrombosis Prevention Given 11/25/2020 9:01 PM CDT 40 mg Left Outer Thigh Given 11/24/2020 8:58 PM CDT 40 mg Le ft Upper Abdomen gabapentin (NEURONTIN) capsule 300 mg 300 mg, oral, Once, On Sun11/24/20 at 0715, For 1 dose, Pre-Op, Give upon arrival to holding area. , Indications: Pre-Emptive AnalgesiaIndications:Pre-Emptive Analgesia Given 11/24/2020 7:30 AM CDT 3 00 mg gabapentin (NEURONTIN) capsule 300 mg 300 mg, oral, Every 12 hours scheduled, First dose on Sun11/24/20 at 2100, Indications: PainIndications:Pain Given 11/26/2020 8:49 AM CDT 300 mg Given 11/25/2020 9:01 PM CDT 300 mg Given 11/25/2020 10:52 AM CDT 300 mg heparin 5,000 unit/mL injection 5,000 Units 5,000 Units, subcutaneous, Once, On Sun11/24/20 at 0715, For 1 dose, Pre-Op, Can give immediately after neuraxial block if no complications per anesthesia., Indications: Deep Vein Thrombosis PreventionIndications:Deep Vein Thrombosis Prevention Given 11/24/2020 8:30 AM CDT 5,000 Units Left Lower Abdomen HYDROmorphone (DILAUDID) injection 0.2 mg 0.2 mg, intravenous, Administer over 2 Minutes, Every 10 min PRN, 1st line for pain, Starting on Sun11/24/20 at 1256, Phase I, Switch to 2nd line analgesic order if pain is uncontrolled or increasing after 2 doses. Notify Anesthesiologist if total PACU dose reaches 2 mg and pain score 5/10 or more., Indications: PainIndications:Pain Given 11/24/2020 1:28 PM CDT 0.2 mg Given 11/24/2020 1:18 PM CDT 0.2 mg Given 11/24/2020 1:08 PM CDT 0.2 mg HYDROmorphone (DILAUDID) injection 0.2 mg 0.2 mg, intravenous, Administer over 2 Minutes, Every 4 hours PRN, 2nd line for pain, Starting on Sun11/24/20 at 1459, May administer 1 hour after second dose of 1st line analgesic agent for uncontrolled or increasing pain., Indications: PainIndications:Pain Given 11/25/2020 4:36 AM CDT 0.2 mg HYDROmorphone (DILAUDID) injection 0.4 mg 0.4 mg, intravenous, Administer over 2 Minutes, [...] score 5/10 or more., Indications: PainIndications:Pain Given 11/24/2020 1:38 PM CDT 0.4 mg ibuprofen (ADVIL,MOTRIN) tablet 600 mg 600 [...] Given 11/25/2020 3:29 PM CDT 15 mg ketorolac (TORADOL) injection 15 mg 15 mg, intravenous, Once, On Sun11/24/20 at 1400, For 1 dose, Phase I, For Adult IV push, administer over 15 seconds Given 11/24/2020 1:25 PM CDT 15 mg Lactated Ringer's (LR) infusion 30 mL/hr, intravenous, Continuous, Starting on Sun11/24/20 at 0715 Restarted 11/24/2020 8:29 AM CDT New Bag 11/24/2020 7:29 AM CDT 30 mL/hr 30 mL/hr oxyCODONE (ROXICODONE) tablet [...] Given 11/25/2020 3:30 PM CDT 10 mL documented in this encounter Active and Recently Administered Medications Times are shown in CDT. Scheduled Medication Order 11/24/2020 11/25/2020 11/26/2020 acetaminophen (TYLENOL) tablet 1,000 mg (COMPLETED) 1,000 mg, oral, Once, On Sun11/24/20 at 0715, For 1 dose, Pre-Op, Give upon arrival to holding area. , Indications: Pre-Emptive Analgesia 0730 (Given - Provider: Theodore Ruff RN) acetaminophen (TYLENOL) tablet 1,000 mg 1,000 mg, oral, Every 6 hours scheduled, First dose on Sun11/24/20 at 1530, Indications: Pain 1736 (Given - Provider: Marcello Medina RN)2059 (Given - Provider: Nicolasa Fernandes RN) 0430 (Given - Provider: Nicolasa Fernandes RN)1053 (Given - Provider: Marcello Medina RN)1528 (Not Given - Provider: Marcello Medina RN - Reason: Contraindicated)2100 (Given - Provider: Federico Carr, CHRIS) 0554 (Given - Provider: Federico Carr RN)1325 (Given - Provider: Mary Ann Jackson RN) alvimopan (ENTEREG) capsule 12 mg (COMPLETED) 12 mg, oral, Once, On Sun11/24/20 at 0715, For 1 dose, Pre-Op, Give immediately upon arrival to holding area (do not prescribe if patient is currently receiving chronic opioid treatment). , Indications: Postoperative Ileus, Postoperative ileus prophylaxis 729 (Given - Provider: Theodore Ruff RN) enoxaparin (LOVENOX) syringe 40 mg 40 mg, subcutaneous, Daily (for enoxaparin), First dose on Sun11/24/20 at 2100, Indications: Deep Vein Thrombosis Prevention 2057 (Given - Provider: Nicolasa Fernandes RN) 2100 (Given - Provider: Federico Carr, CHRIS) ertapenem (INVanz) injection 1,000 mg (COMPLETED) 1,000 [...] or other medications. , Indications: Prophylaxis, Surgical 837 (Given - Provider: Cee Rosado CRNA) gabapentin (NEURONTIN) capsule 300 mg (COMPLETED) 300 mg, oral, Once, On Sun11/24/20 at 0715, For 1 dose, Pre-Op, Give upon arrival to holding area. , Indications: Pre-Emptive Analgesia 729 (Given - Provider: Theodore Ruff RN) gabapentin (NEURONTIN) capsule 300 mg 300 mg, oral, Every 12 hours scheduled, First dose on Sun11/24/20 at 2100, Indications: Pain 2057 (Given - Provider: Nicolasa Fernandes RN) 1051 (Given - Provider: Marcello Medina RN)2100 (Given - Provider: Federico Carr, CHRIS) 0849 (Given - Provider: Mary Ann Jackson RN) heparin 5,000 unit/mL injection 5,000 Units (COMPLETED) 5,000 Units, subcutaneous, Once, On Sun11/24/20 at 0715, For 1 dose, Pre-Op, Can give immediately after neuraxial block if no complications per anesthesia., Indications: Deep Vein Thrombosis Prevention 829 (Given - Provider: Theodore Ruff RN - Comment: waiting for pls) ibuprofen (ADVIL,MOTRIN) tablet 600 mg(Linked Group 1) 600 mg, oral, Every 8 hours scheduled, First dose on 11/27/20 at 1400, Start ibuprofen after the ketorolac doses are finished., Indications: Pain ketorolac (TORADOL) injection 15 mg(Linked Group 1) 15 mg, intravenous, Every 8 hours scheduled, First dose on 11/24/20 at 1530, For 9 doses, Indications: Postoperative Acute Pain 1735 (Given - Provider: Marcello Medina RN)2057 (Given - Provider: Nicolasa Fernandes RN) 429 (Given - Provider: Nicolasa Fernandes RN)152 (Given - Provider: Marcello Medina RN)210 (Given - Provider: Federico Carr RN) 0554 (Given - Provider: Federico Carr RN) ketorolac (TORADOL) injection 15 mg (COMPLETED) 15 mg, intravenous, Once, On 11/24/20 at 1400, For 1 dose, Phase I, For Adult IV push, administer over 15 seconds 1325 (Given - Provider: Cami Chisholm RN) sertraline (ZOLOFT) tablet 50 mg 50 mg, oral, Nightly, First dose (after last modification) on Ana 11/25/20 at 2100 2101 (Given - Provider: Federico Carr, CHRIS) sodium chloride 0.9% flush 0.5-20 mL 0.5-20 mL, intra-catheter, Every 8 hours scheduled, First dose on Sun11/24/20 at 1530, Flush volume based on line type and size. 173 (Given - Provider: Marcello Medina RN)2058 (Given - Provider: Nicolasa Fernandes RN) 435 (Given - Provider: Nicolasa Fernandes RN - Comment: with dialudid)1530 (Given - Provider: Marcello Medina RN)210 (Given - Provider: Federico Carr RN) 0556 [...] RN) 0010 (Rate/Dose Verify - Provider: Nicolasa Fernandes, CHRIS)0135 (New Bag - Provider: Nicolasa Fernandes RN)0441 (Rate/Dose Verify - Provider: Nicolasa Fernandes RN)0657 (Rate/Dose Verify - Provider: Nicolasa Fernandes RN)0800 (Stopped - Provider: Marcello Medina RN) Lactated Ringer's (LR) infusion (CANCELED) 30 mL/hr, intravenous, Continuous, Starting on Sun11/24/20 at 0715 0729 (New Bag - Provider: Theodore Ruff RN)0828 (Paused - Provider: Cee Rosado CRNA - Comment: Switch to gravity)0829 (Restarted - Provider: Cee Rosado CRNA)0930 (Anesthesia Volume Adjustment - Provider: Cee Rosado CRNA)1230 (Anesthesia Volume Adjustment - Provider: Cee [...] Comment: too soon)1052 (Given - Provider: Marcello Medina, RN)1530 (Given - Provider: Marcello Medina RN)2100 [...] B (POLY SPORIN) 500-10,000 unit/gram ointment tube 1 11/24/2020 bupivacaine (MARCAINE) 0.25 % (2.5 mg/mL) preservative free injection 1 11/24/2020 clindamycin (CLEOCIN) 600 mg , gentamicin (GARAMYCIN) 240 mg in sodium chloride 0.9% 500 mL irrigation solution 1 11/24/2020 ertapenem (INVanz) injection 1,000 mg 1 02/2021 haloperidol (HALDOL) injection 1 mg 1 11/24 ibuprofen (ADVIL,MOTRIN) tablet 600 mg 1 lidocaine-EPINEPHrine (XYLOC GUICHO with EPI) 1 %-1:100,000 injection 1 11/24/2020 LORazepam (ATIVAN) tablet 0.5 mg 1 11/25/19 21 naloxone (NARCAN) 0.4 mg/mL injection 0.04-0.4 mg 1 11/24/2020 ondansetron (ZOFRAN) injection 4 mg 1 11/24 prochlorperazine (COMPAZINE) injection 10 mg 2 11/24/2020 sertraline (ZOLOFT) tablet 50 mg 1 11/25/19 21 sertraline (ZOLOFT) tablet 75 mg 1 11/25/19 21 sodium chloride 0.9% flush 0.5-20 mL 2 02/2021 sodium chloride 0.9% irrigation 1 sterile water irrigation 1 11/24/2020 Diet Count Last Ordered Date First Orde red Date ADULT DISCHARGE DIET 1 11/26/2020 Nursing Count Last Ordered Date First Orde red Date DISCHARGE ACTIVITY 4 11/26/2020 DISCHARGE CALL PROVIDER 8 11/26/2020 DISCHARGE DRESSING 4 11/26/2020 Transfer Count Last Ordered Date First Orde red Date TRANSFER PATIENT 1 11/24/2020 documented in this encounter Care Teams High Lighter Relationship Specialty Start Date End Date Crispin Shen MD Surgeon Colon and Rectal Surgery 09/09/20 documented as of this encounter
--- OUTSIDE RECORDS SUMMARY | 2024-08-18 09:56 | XMS_ITS | Encounter Summary ---
Author Organization [facility] Address [address] [place] [address] Phone Care Team Providers Care Shareholder Name Role Phone Unavailable Primary Care Provider Unavailabl e Reason for Visit * Reason Onset Date Comments COVID screening 08/30/2020 Encounter Details Date Type Department Care Team (Late st Contact Info) Description 08/30/2020 Telephone [facility] Surgery [facility] Advanced Medicine [address]th [place] [address] [place] [address] Leigha De Jesus RMA COVID screening Social History Tobacco Use Types Packs/Day Years Used Date Smoking Tobacco: Never Assessed Comments Unknown Sex and Gender Information Value Date Recorded Sex Assigned at Not on file Legal Sex Female 9:36 AM CREDIT CONTROL OFFICER Gender Identity Female 11/16/2020 2:58 PM CDT Sexual Orientation Straight 11/16/2020 2: 58 PM CDT documented as of this encounter Miscellaneous Notes * Telephone Encounter - Leigha De Jesus RMA - 08/30/2020 8:56 AM CST COVID screening completed. IT CONTROL OFFICER documented in this encounter Plan of Treatment Not on file documented as of this encounter Visit Diagnoses Not on filedocumented in this encounter"
--- OUTSIDE RECORDS SUMMARY | 2024-08-18 09:56 | XMS_ITS | Encounter Summary ---
Author Organization [facility] Address [address] [place] [address] Care Team Providers Care Toddler Lead Teacher Name Role Phone Unavailable Primary Care Provider Unavailabl e Encounter Details Date Type Department Care Team (Late st Contact Info) Description 09/07/2020 12:00 PM SEARCH PLANNER Lab [address] [address] Crispin Shen MD [phone] [place] [address] Pre-procedure lab exam Discharge Disposition: Discharge to home or self care Social History Tobacco Use Types Packs/Day Years Used Date Smoking Tobacco: Never Smokeless Tobacco: Never Alcohol Use Standard Drinks/Week Comments Not Currently 0 (1 standard drink = 0.6 oz pur e alcohol) Comments Unknown Sex and Gender Information Value Date Recorded Sex Assigned at Not on file Legal Sex Female 9:36 AM SEARCH PLANNER Gender Identity Female 11/16/2020 2:58 PM CDT Sexual Orientation Straight 11/16/2020 2: 58 PM CDT documented as of this encounter Discharge Disposition Disposition Code Departure Means Destination Discharge to home or self care documented in this encounter Plan of Treatment Not on file documented as of this encounter Procedures Procedure Name Priority Date/Time Associated Diagnosis Comments COVID-19 CORONAVIRUS RNA Routine 09/07/2020 11:38 AM SEARCH PLANNER Pre-procedure lab exam documented in this encounter Results * COVID-19 Coronavirus RNA Nasopharyngeal (09/07/2020 11:38 AM SEARCH PLANNER) COVID-19 RNA Not Detected MAHSA FOSTER (KELLY) Comment: Testing performed as a component of [...] COVID-19. Interpretive Data Testing performed by the [facility] Molecular Infectious Disease Laboratory. The Novel Coronavirus Assay (COVID-19) Real Time RT-PCR assay [...] last revised on 2019. Testing performed by: [facility], [address] [place] [address]., [address] First COVID-19 test? No [facility] (KELLY) Comment:Testing performed by : [address], [address] Employeed in healthcare? No [facility] (KELLY) Comment:Testing performed by : [address], [address] status? No CE RNER [facility] (KELLY) Comment:Testing performed by : [address], [address] Group care resident? No [facility] (KELLY) Comment:Testing performed by : [address], [address] Hospitalized? No [facility] (KELLY) Comment:Testing performed by : [facility], [address] [place] [address], [place]., [address] Is patient in ICU? No JAZZ FOSTER (KELLY) Comment:Testing performed by : [facility], [address] [place]., [address] Symptomatic as defined by CDC? No JAZZ FOSTER (KELLY) Comment:Testing performed by : [facility], 1 [facility], [address] Nasopharyngeal 09/07/2020 11 :38 AM SEARCH PLANNER 09/07/2020 8:49 PM SEARCH PLANNER Narrative JAZZ FOSTER (KELLY) - 09/08/2020 3:49 AM SEARCH PLANNER What is the reason for testing?->Screening prior to scheduled procedure or surgery us Crispin Shen MD LAB MICROBIOLOGY - GENERAL ORD ERABLES Final Result JAZZ FOSTER (KELLY) 1 [facility] Department [place] [address] documented in this encounter Visit Diagnoses Diagnosis Pre-procedure lab exam Pre-procedural laboratory examination documented in this encounter
--- OUTSIDE RECORDS SUMMARY | 2024-08-18 09:56 | XMS_ITS | Encounter Summary ---
Author Organization [facility] Address [address] [place] [address] Phone Care Team Providers Care Order Picker/Assembler Name Role Phone Crispin Shen MD Unavailable [phone] Reason for Visit * Reason Onset Date Comments Op note and path 10/05/2020 Encounter Details Date Type Department Care Team (Late st Contact Info) Description 10/05/2020 Telephone [facility] Surgery [facility] Advanced Medicine 8th [place] [address] [place] [address] Ana M Baig RMA Op note and path Social History Tobacco Use Types Packs/Day Years Used Date Smoking Tobacco: Never Smokeless Tobacco: Never Alcohol Use Standard Drinks/Week Comments Not Currently 0 (1 standard drink = 0.6 oz pur e alcohol) Comments No Sex and Gender Information Value Date Recorded Sex Assigned at Not on file Legal Sex Female 9:36 AM FISCAL MANAGER Gender Identity Female 11/16/2020 2:58 PM CDT Sexual Orientation Straight 11/16/2020 2: 58 PM CDT documented as of this encounter Miscellaneous Notes * Telephone Encounter - Ana M Baig RMA - 10/05/2020 8:26 AM FISCAL MANAGER 09/10/2020 Operative note and corresponding pathology report, if applicable was faxed to Care Team on 10/05/2020. AL MANAGER documented in this encounter Plan of Treatment Not on file documented as of this encounter Visit Diagnoses Not on filedocumented in this encounter Care Teams Order Picker/Assembler Relationship Specialty Start Date End Date Crispin Shen MD Surgeon Colon and Rectal Surgery 09/09/20 documented as of this encounter
--- OUTSIDE RECORDS SUMMARY | 2024-08-18 09:56 | XMS_ITS | Encounter Summary ---
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 revision * Consultation (Routine) - Closed Specialty Diagnoses / Procedures Referred By Cecy t Referred To Contact Surgery / Colon and Rectal Surgery Diagnoses Rectovaginal fistula Kaitlyn Bowen MD [address] [facility] [place] [address] Phone: tel: fax: Crispin Shen MD [address] [facility] [phone] [place] [address] Phone: tel: fax: Referral ID Status Reason Start Date Expiration Date V isits Requested Visits Authorized [id number] Closed Specialty Services Required 11/26/2020 12/26/2021 2 2 Encounter Details Date Type Department Care Team (Late st Contact Info) Description 12/03/2020 12:30 PM CDT Office Visit [facility] Surgery [address] [facility] 2nd Floor [address] [place] [address] Crispin Shen MD [address] [facility] [phone] [place] [address] Rectovaginal fistula (Primary Dx) Social History Tobacco [...] week 11/24/2020 How often do you attend [facility] or synagogue services? 1 to 4 times per year 11/24/2020 Do you belong to any clubs o r organizations such as jain groups, unions, fraternal or athletic groups, or [...] on file Legal Sex Female 9:36 AM NURSING UNIT COORDINATOR Gender Identity Female 11/16/2020 2:58 PM CDT Sexual Orientation Straight 11/16/2020 2: 58 PM CDT documented as of this encounter Last Filed Vital Signs Vital Sign Reading Time Taken Comments Blood Pressure 123/80 12/03/2020 12:20 PM CDT Pulse 87 12/03/2020 12:20 PM CDT Temperature 36.3 ??C (97.3 ??F) 12/03/2020 12:20 PM C DT Respiratory Rate - - Oxygen Saturation 98% 12/03/2020 12:20 PM CDT Inhaled Oxygen Concentration - - Weight 104.3 kg (230 lb) 12/03/2020 12:20 PM CDT Height 177.8 cm (5' 10 ) 12/03/2020 12:20 PM CDT Body Mass Index 33 12/03/2020 12:20 PM CDT documented in this encounter Ordered Prescriptions Prescription Sig Dispense Quantity Refills Last Filled Start Date End Date amoxicillin-clavul anate (AUGMENTIN) 875-125 mg per tablet Take 1 tablet by mouth 2 (two) times a day for 10 days 20 tablet 12/03/2020 12/14/2020 documented in this encounter Progress Notes * Crispin Shen MD - 12/03/2020 12:30 PM CDT Colorectal Post-operative Visit Patient ID: Belem Smith is a 49 y.o. 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 She is here in follow-up. She went home with her Encinas and her drain. She has been doing well. She had some erythema around her thigh incision and they started her on Keflex yesterday. Her perineal incision has not had much drainage. Her perineal FE has put out next to nothing for the last several days. Physical Exam: On exam, her perineal wound looks pretty good. There is some superficial skin dehiscence anteriorly. There is no erythema. She has an area over the tunnel site from the right thigh that has some induration and erythema. I anesthetized it after prepping with Betadine in attempted to aspirate fluid. There was no fluid under this area. I took out her Encinas catheter. Assessment and Plan: Ms. Smith is doing well. She does have some cellulitis over her tunneled site and over the proximal portion of her thigh incision. I will switch her to Augmentin. We are going to give her a 10 daycourse of that. She knows to call if she has other problems. If not, I will see her back in three weeks. She will see Dr. Guidry this afternoon. 12/01/2020 Crispin Shen MD documented in this encounter Plan of Treatment Not on file documented as of this encounter Visit Diagnoses Diagnosis Rectovaginal fistula- Primary Digestive-genital tract fistula, female documented in this encounter Orders Outpatient Referral Count Last Ordered Date st Ordered Date AMB REFERRAL TO COLORECTAL SURGERY 1 2020 documented in this encounter Care Teams Powder Blender Relationship Specialty Start Date End Date Crispin Shen MD Surgeon Colon and Rectal Surgery 09/09/20 documented as of this encounter
--- OUTSIDE RECORDS SUMMARY | 2024-08-18 09:56 | XMS_ITS | Encounter Summary ---
Author Organization [facility] Address [address] [facility] [address] [place] [address] Phone Care Team Providers Care Wind Turbine Engineer Name Role Phone Crispin Shen MD Unavailable [phone] Reason for Referral * MRI/CAT/PET Scan (Routine) - Closed Specialty Diagnoses / Procedures Referred By Cecy t Referred To Contact Radiology Diagnoses Post-operative pain Cellulitis of right upper extremity Procedures CT pelvis with contrast Crispin Shen MD [address] [facility] [phone] [place] [address] Phone: tel: fax: [address] [phone] Referral ID Status Reason Start Date Expiration Date Visits Re quested Visits Authorized [id number] Closed 12/08/2020 01/07/2022 1 1 * MRI/CAT/PET Scan (Routine) - Closed Specialty Diagnoses / Procedures Referred By Cecy gage Referred To Contact Radiology Diagnoses Post-operative pain Cellulitis of right upper extremity Procedures CT Femur Right W Contrast Crispin Shen MD [address] [facility] [phone] [place] [address] Phone: tel: fax: [facility] 1 [facility] [place] [address] Referral ID Status Reason Start Date Expiration Date Visits Re quested Visits Authorized [id number] Closed 12/08/2020 01/07/2022 1 1 Encounter Details Date Type Department Care Team (Late st Contact Info) Description 12/08/2020 Orders Only [facility] Surgery [address] [facility] 8th [place] [address] [place] [address] Crispin Shen MD [address] [phone] [place] [address] Rectovaginal fistula (Primary Dx); Post-operative pain; Cellulitis of right upper extremity Social History Tobacco Use Types Packs/Day Years [...] week 11/24/2020 How often do you attend [facility] or latter day services? 1 to 4 times per year [...] on file Legal Sex Female 9:36 AM ORCHID WORKER Gender Identity Female 11/16/2020 2:58 PM CDT Sexual Orientation Straight 11/16/2020 2: 58 PM CDT documented as of this encounter Ordered Prescriptions Prescription Sig Dispense Quantity Refills Last Filled Start Date End Date metroNIDAZOLE (FLAGYL) 500 mg tablet Take 1 tablet (500 mg total) by mouth 3 (three) times a day for 10 days 30 tablet 12/08/2020 12/18/2020 documented in this encounter Plan of Treatment Not on file documented as of this encounter Results * CT pelvis with [...] Shen MD IMG CT PROCEDURES Final Result * CT Femur [...] Rectovaginal fistula- Primary Digestive-genital tract fistula, female Post-operative pain Other acute postoperative pain Cellulitis of right upper extremity Post-operative pain Other acute postoperative pain Cellulitis of right upper extremity documented in this encounter Care Teams Wind Turbine Engineer Relationship Specialty Start Date End Date Crispin Shen MD Surgeon Colon and Rectal Surgery 09/09/20 documented as of this encounter
--- OUTSIDE RECORDS SUMMARY | 2024-08-18 09:56 | XMS_ITS | Encounter Summary ---
Author Organization [facility] Address [address] [place] [address] Care Team Providers Care Organizational Effectiveness Consultant Name Role Phone Crispin Shen MD Unavailable [phone] Encounter Details Date Type Department Care Team (Late st Contact Info) Description 11/24/2020 8:29 AM CDT Anesthesia Event [facility] Operating Room 1 [place] [address] Niyah Michele MD [address] [facility] [address] [place] [address] Chrissy Kay NP [address] [facility] [phone] [place] [address] Anesthesia Record Procedure Summary Procedure Name Responsible Anesthesiologist Anesthesia Start Time Anesthesia Stop Time GRACILIS FLAP REPAIR OF RECTOVAGINAL FISTULA (Vagina) Niyah Michele MD 11/24/20 0829 11/24/20 1300 Events Date Time Event Comment 11/24/2020 0638 In Preop 0805 0829 An Start 0834 An Start Data 0834 In Room 0848 An Induction The patient was reevaluated immediately before moderate or deep sedation use and before anesthesia induction. 0851 An Intubation 0852 Anesthesia Ready 0858 Proc Start 0918 Incision Start 1253 An Extubation 1256 Proc Fin 1256 an stop data 1257 Out of Room 1300 Handoff to RN I completed my handoff [...] disposition at the time of handoff: PACU 1300 An Stop Meds Name Total midazolam PF 2 mg lidocaine (cardiac) syringe 2 % 100 mg propofol 200 mg HYDROmorphone 2 mg/mL 0.4 mg rocuronium 60 mg ePHEDrine 25 mg ondansetron PF (ZOFRAN) 2 mg/mL injectio n 4 mg glycopyrrolate 0.4 mg neostigmine injection 1 mg/mL 2.5 mg dexamethasone 4 mg/ml 4 mg famotidine 20 mg ertapenem (INVanz) injection 1,000 mg 1, 000 mg methadone 10 mg/mL 10 mg phenylephrine infusion (100 mcg/mL) 1.03 mg magnesium sulfate 2 g/50 mL 2 g fentaNYL 50 mcg Lactated Ringer's (LR) infusion 600 mL LR 800 mL * Agents Name O2% N2O O2 Air Sevoflurane Inspired Sevoflurane * Blood No blood administrations on file. Lines, Drains, and Airways Type Details Placement Removal RETIRED Surgical Site 09/10/20; 826; Heidi-anal; 01/21/21; 646; Removal date unknown/not present on admission 09/10/20826 by Fernanda Ramirez RN 01/21/21646 by Andreia Arambula RN Peripheral IV Placement Date: 11/24/20; Placement Time: 07; Catheter Size: 20 G; Orientation: Left, Posterior; Location: Hand; Site Prep: Alcohol, Chlorhexidine; Technique: Anatomical landmarks; Insertion Attempts: 1; Removal Date: 11/26/20; Removal Time: 1138 11/24/20 0742 by Theodore Ruff RN 11/26/20 113 by Mary Ann Jackson RN Urethral Catheter Placement Date: 11/24/20; Placement Time: 0840; Inserted by: Dr. Escoto; Type: Non-latex; Size: 16 Fr.; Balloon Size: 10 mL; Urine Returned: Yes; Removal Date: 01/21/21; Removal Time: 0645; Removal Reason: Removal date unknown/not present on admission 11/24/20 0840 by Martinez David RN 01/21/21 0645 by Andreia Arambula RN Peripheral IV Placement Date: 11/24/20; Placement Time: 0850; Catheter Size: 16 G; Orientation: Right; Location: Wrist; Site Prep: Alcohol; Technique: Anatomical landmarks; Insertion Attempts: 1; Patient Tolerance: Tolerated well; Removal Date: 11/26/20; Removal Time: 1138 11/24/20 0850 by Cee Rosado CRNA 11/26/20 1138 by Mary Ann Jackson RN ETT Placement Date: 11/24/20; Placement Time: 0851 (created via procedure documentation); Mask Ventilation: 2; Technique: Video laryngoscopy; Type: ETT - single; Single Lumen Tube Size: 7 mm; Cuffed: Yes; Laryngoscope: Jose; Blade Size: 3; Location: Oral; Insertion Attempts: 1; Placement Verification: Auscultation, Capnometry; Removal Date: 11/24/20; Removal Time: 1253 11/24/20 0851 by Cee Rosado CRNA 11/24/20 1253 by Cee Rosado CRNA Closed/Suction/Open Drain 11/24/20; 1150; No; 1; Distal, Right, Lateral; Thigh; Bulb; 15 Fr.; 1; Removal date unknown/not present on admission 11/24/20 1150 by Nathaniel Dickerson RN 01/21/21 0646 by Andreia Arambula RN RETIRED Surgical Site 11/24/20; 1203; Ri ght; Leg; 01/21/21; 0645; Removal date unknown/not present on admission 11/24/20 1203 by Nathaniel Dickerson RN 01/21/21 0645 by Andreia Arambula RN RETIRED Surgical Site 11/24/20; 1203; Bilateral; Perineum; 01/21/21; 0647; Removal date unknown/not present on admission 11/24/20 1203 by Nathaniel Dickerson RN 01/21/21 0647 by Andreia Arambula RN Closed/Suction/Open Drain 11/24/20; 1240; No; 2; Right; Perineal; Bulb; 10 Fr.; 1; Removal date unknown/not present on admission 11/24/20 1240 by Nathaniel Dickerson RN 01/21/21 0646 by Andreia Arambula RN documented in this [...] week 11/24/2020 How often do you attend [facility] or faith services? 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 / [facility] POD 1 Anesthesia Start: 828 Anesthesia Stop: 1300 Procedures: GRACILIS FLAP REPAIR OF RECTOVAGINAL FISTULA (N/A Vagina) REVISION COLOSTOMY (N/A Abdomen) RT GRACILIS Muscle FLAP HARVEST for Rectrovaginal Fistula Repair (N/A Leg Upper) Diagnosis: Rectovaginal fistula (Rectovaginal fistula [N82.3]) Surgeons: Crispin Shen MD; Cyndee Guidry MD PhD Responsible Provider: Niyah Michele MD Anesthesia Type: general ASA Status: 2 Anesthesia Type: general Last vitals BP 113/67 Pulse 102 Temp 36.9 ??C (98.4 ??F) (Temporal) Resp 24 SpO2 96% Anesthesia Post Evaluation Patient location during evaluation: PACU Patient participation: complete - patient participated Level of consciousness: follows simple commands and fully awake Pain score: 5 Pain management: adequate Airway patency: adequate Evidence of recall: no Anesthetic complications: no Cardiovascular status: acceptable and hemodynamically stable Respiratory status: acceptable and nasal cannula (2LNC) Hydration status: acceptable Pt is: normothermic Nausea/Vomiting status: none * Anesthesia Procedure Notes - Cee Rosado CRNA - 11/24/2020 9:08 AM CDTAssociated Order(s): Airway Airway Patient location: OR Urgency: elective Date/time: 11/24/2020 8:51 AM Indications for airway management: anesthesia and airway protection Difficult airway: no Staff: Supervising provider: Niyah Michele MD Placed by: [employer] SALES REPRESENTATIVE: Cee Rosado CRNA Emergent airway documentation: Risks and benefits discussed: yes Consent obtained: yes Consent given by: patient Airway prep: Preoxygenated: yes Patient position: sniffing MILS maintained throughout: yes Mask difficulty assessment: 2 - vent by mask + OA or adjuvant Spontaneous ventilation during airway: absent Sedation level during airway: GA Final airway details: Final airway type: endotracheal airway Tube type: ETT ETT size: 7.0 mm Cuffed: yes Technique used for successful ETT placement: video laryngoscopy Devices/Methods used in placement: intubating stylet Insertion site: oral Blade type: Jose Video blade type: CMAC Blade size: 3 Cormack-Lehane (video): grade IIb - view of arytenoids or posterior of glottis only Cuff volume: 8 mL Cuff inflated with: air Placement verified by: auscultation and CO2 detection Airway secured with: silk tape Number of attempts: 1 * Anesthesia Preprocedure Evaluation - Niyah Michele MD - 11/22/2020 4:41 PM CDT Images from the original note were not included. [facility] Preoperative Evaluation Record Evaluation type/location: [facility] Planned procedure site: [facility]T OR (Pod 1) Date: 11/22/20 Anesthesia [...] 4 days. Pre-procedure COVID19 testing performed at [facility]. Result pending- to be reviewed by surgeon's [...] Total Score: 1 Sandeep index score: 100 DOS Physical Exam Medical history, medications, and allergies reviewed. Attestation: This PAT evaluation 11/24/2020. Airway Exam: Mallampati: II Cervical ROM: limited extension TM distance: 3.5 (FROM extension and flexion- movement to R and L can cause neurologic symptoms.) Cardiovascular Exam: Rate: regular Rhythm: regular Pulmonary Exam: LCTA, bilat EENT Exam: trachea midline Anesthesia Plan ASA 2 Planned anesthesia: General Team communication plan: oral ET tube Induction: Induction: intravenous. Postoperative Plan: Postoperative administration opioids intended. Patient's planned disposition post procedure is Floor. Informed Consent: Anesthesia plan and risks discussed [...] Procedure Name Priority Date/Time Associated Diagnosis Comments ID AN PROCEDURE PLACEHOLDER Routine 11/24/2020 9:08 AM CDT ID AN ELECTIVE ENDOTRACHEAL AIRWAY Routine 11/24/2020 9:08 AM CDT documented in this encounter Results * ID AN ELECTIVE ENDOTRACHEAL AIRWAY, ID AN PROCEDURE PLACEHOLDER (11/24/2020 9:08 AM CDT) Narrative Cee Rosado CRNA - 11/24/2020 9:08 AM CDT Cee Rosado CRNA ? 11/24/2020 ??9:09 AM Airway Patient location: OR Urgency: elective Date/time: 11/24/2020 8:51 AM Indications for airway management: anesthesia and airway protection Difficult airway: no Staff: Supervising provider: Niyah Michele MD Placed by: [employer] SALES REPRESENTATIVE: Cee Rosado CRNA Emergent airway documentation: Risks and benefits discussed: yes Consent obtained: yes Consent given by: patient Airway prep: Preoxygenated: yes Patient position: sniffing MILS maintained throughout: yes Mask difficulty assessment: 2 - vent by mask + OA or adjuvant Spontaneous ventilation during airway: absent Sedation level during airway: GA Final airway details: Final airway type: endotracheal airway Tube type: ETT ETT size: 7.0 mm Cuffed: yes Technique used for successful ETT placement: video laryngoscopy Devices/Methods used in placement: intubating stylet Insertion site: oral Blade type: Jose Video blade type: CMAC Blade size: 3 Cormack-Lehane (video): grade IIb - view of arytenoids or posterior of glottis only Cuff volume: 8 mL Cuff inflated with: air Placement verified by: auscultation and CO2 detection Airway secured with: silk tape Number of attempts: 1 us Niyah Michele MD ANESTHESIA ORDERABLES Final Result documented in this encounter Visit Diagnoses Not on filedocumented in this encounter Administered Medications Inactive Administered Medications - up to 3 most recent administrations Medication Order MAR Action Action Date Dose Rate Site dexAMETHasone (DECADRON) 4 mg/mL injection intravenous, Administer over 2 Minutes, As needed, Starting on Sun11/24/20 at 0903, Anesthesia Intra-op Given 11/24/2020 9:03 AM CDT 4 mg ePHEDrine injection intravenous, Administer over 5 Minutes, As needed, Starting on Sun11/24/20 at 0920, Anesthesia Intra-op Given 11/24/2020 10:02 AM CDT 5 mg Given 11/24/2020 9:53 AM CDT 5 mg Given 11/24/2020 9:44 AM CDT 5 mg ertapenem (INVanz) injection 1,000 mg 1,000 mg, intravenous, Administer over 5 Minutes, Once, On Sun11/24/20 at 0715, For 1 dose, Pre-Op, Give within 60 minutes of incision. For IV Push administration: add 10 mL of sterile water for injection or NS to 1g vial to achieve a final concentration of 100 mg/mL. Do NOT mix with dextrose or other medications. , Indications: Prophylaxis, SurgicalIndications:Prophylaxis, Surgical Given 11/24/2020 8:38 AM CDT 1,000 mg famotidine (PEPCID) injection intravenous, Administer over 2 Minutes, As needed, Starting on Sun11/24/20 at 0902, Anesthesia Intra-op Given 11/24/2020 9:03 AM CDT 20 mg fentaNYL (SUBLIMAZE) preservative free injection intravenous, As needed, Starting on Sun11/24/20 at 1102, Anesthesia Intra-op Given 11/24/2020 11:02 AM CDT 50 mcg glycopyrrolate (ROBINUL) injection intravenous, Administer over 1 Minutes, As needed, Starting on Sun11/24/20 at 1131, Anesthesia Intra-op Given 11/24/2020 11:31 AM CDT 0.4 mg HYDROmorphone (DILAUDID) injection intravenous, Administer over 2 Minutes, As needed, Starting on Sun11/24/20 at 1009, Anesthesia Intra-op Given 11/24/2020 10:09 AM CDT 0.4 mg Lactated Ringer's (LR) infusion 30 mL/hr, intravenous, Continuous, Starting on Sun11/24/20 at 0715 Restarted 11/24/2020 8:29 AM CDT New Bag 11/24/2020 7:29 AM CDT 30 mL/hr 30 mL/hr Lactated Ringer's (LR) infusion intravenous, Continuous PRN, Starting on Sun11/24/20 at 0852, Anesthesia Intra-op New Bag 11/24/2020 8:52 AM CDT lidocaine (cardiac) (XYLOCAINE) preservative free injection intravenous, As needed, Starting on Sun11/24/20 at 0848, Anesthesia Intra-op, Indications: Ventricular ArrhythmiasIndications:V entricular Arrhythmias Given 11/24/2020 8:48 AM CDT 100 mg magnesium sulfate 2 g/50 mL in water (premix) intravenous, Administer over 60 Minutes, As needed, Starting on Sun11/24/20 at 0905, Anesthesia Intra-op Given 11/24/2020 9:05 AM CDT 2 g methadone (DOLOPHINE) injection intravenous, As needed, Starting on Sun11/24/20 at 0841, Anesthesia Intra-op Given 11/24/2020 8:41 AM CDT 10 mg midazolam (VERSED) 1 mg/mL preservative free injection intravenous, Administer over 2 Minutes, As needed, Starting on Sun11/24/20 at 0834, Anesthesia Intra-op Given 11/24/2020 8:34 AM CDT 2 mg neostigmine (PROSTIGMIN) injection intravenous, Administer over 3 Minutes, As needed, Starting on Sun11/24/20 at 1131, Anesthesia Intra-op Given 11/24/2020 11:31 AM CDT 2.5 mg ondansetron (ZOFRAN) injection intravenous, Administer over 2 Minutes, As needed, Starting on Sun11/24/20 at 1127, Anesthesia Intra-op Given 11/24/2020 11:27 AM CDT 4 mg phenylephrine (TOMAS-SYNEPHRINE) 5 mg/50 mL (100 mcg/mL) in sodium chloride 0.9% (premix) intravenous, Continuous PRN, Starting on Sun11/24/20 at 0907, Anesthesia Intra-op Rate/Dose Change 11/24/2020 11:20 AM CDT 0.4 mcg/kg/min 23.76 mL/hr Restarted 11/24/2020 11:14 AM CDT 0.2 mcg/kg/min 11.88 mL /hr New Bag 11/24/2020 9:07 AM CDT 0.2 mcg/kg/min 11.88 mL/ hr propofoL (DIPRIVAN) IV intravenous, As needed, Starting on Sun11/24/20 at 0848, Anesthesia Intra-op Given 11/24/2020 8:48 AM CDT 200 mg rocuronium (ZEMURON) injection intravenous, As needed, Starting on Sun11/24/20 at 0849, Anesthesia Intra-op Given 11/24/2020 8:49 AM CDT 60 mg documented in this encounter Care Teams Organizational Effectiveness Consultant Relationship Specialty Start Date End Date Crispin Shen MD Surgeon Colon and Rectal Surgery 09/09/20 documented as of this encounter
--- OUTSIDE RECORDS SUMMARY | 2024-08-18 10:02 | XMS_ITS | Encounter Summary ---
Author Organization [facility] Address [address] [facility] [place] [address] Care Team Providers Care Battery Inspector Name Role Phone Ton Hernandez APRN-TOMBSTONE ERECTOR Primary Care Provider + Reason for Referral * Radiology Services (Routine) - Closed Specialty Diagnoses / Procedures Referred By Cecy t Referred To Contact Medical Imaging Diagnoses Hernia of abdominal wall Procedures CT ABDOMEN PELVIS WO CONTRAST Enrique Keller MD [address] [place] [address] [facility] Radiology [address] [place] [phone] Referral ID Status Reason Start Date Expiration Date Visits Re quested Visits Authorized [id number] Closed 06/18/2023 06/17/2024 1 1 GE ASSISTANT Reason for Visit * Radiology Services (Routine) - Closed Specialty Diagnoses / Procedures Referred By Contac t Referred To Contact Medical Imaging Diagnoses Hernia of abdominal wall Procedures CT ABDOMEN PELVIS WO CONTRAST Enrique Keller MD [address] [place] [phone] [facility] Radiology [address] [place] [phone] Referral ID Status Reason Start Date Expiration Date Visits Re quested Visits Authorized [id number] Closed 06/18/2023 06/17/2024 1 1 Encounter Details Date Type Department Care Team (Latest Contact Info) Description 06/26/2023 8:30 AM TRIAGE ASSISTANT - 06/26/2023 11:59 PM TRIAGE ASSISTANT Hospital Encounter [facility] - CT Scan [address] [place] [address] Enrique Keller MD [address] [place] [phone] Discharge Disposition: Home or Self Care Social History Tobacco Use Types Packs/Day Years Used Date Smoking Tobacco: Never Smokeless Tobacco: Never Alcohol Use Standard Drinks/Week Comments Not Currently 0 (1 standard drink = 0.6 oz pur e alcohol) PHQ-2 Answer Date Recorded Patient Health Questionnaire-2 Score 0 06/18/2023 Sex and Gender Information Value Date Recorded Sex Assigned at Not on file Gender Identity Not on file Sexual Orientation Not on file documented as of this encounter Medications at Time of Discharge Medication Sig Dispensed Refills Start Date End Date Ascorbic Acid 1000 MG Take 1 (one) tablet by mouth at bedtime Biotin 1000 MCG CHEW Take 1 capsule by mouth once daily Cholecalciferol 50 MCG (2000 UT) Take 2,000 Units by mouth at bedtime fish oil/omega-3 fatty acids (Promega;Cardi-[place] 3) 1000 MG capsule Take 1 (one) capsule by mouth at bedtime LYSINE PO Take 1 tablet by mouth once daily Multiple Vitamin (MULTIVITAMIN ADULT PO) Take 1 capsule by mouth once daily simethicone (Gas-X) 125 MG capsule Take by mouth as needed ibuprofen (Motrin) 600 MG tablet every 6 hours as needed 05/20/2022 04/07/2024 Loperamide (Imodium) 2 MG tablet Take 1 (one) tablet by mouth 4 times daily as needed for Diarrhea 11/20/2023 LORazepam (Ativan) 0.5 MG tabletIndications:Anxie ty,Sleep disturbance Take 1 (one) tablet by mouth 2 times daily as needed for Anxiety 20 tablet 06/18/2023 02/27/2024 metroNIDAZOLE (Flagyl) 250 MG tablet Take 1 (one) tablet by mouth 4 times daily 28 tablet 05/25/2023 11/20/2023 Multiple Vitamins-Minerals (ZINC PO) Take 1 tablet by mouth once daily 04/07/2024 sertraline (Zoloft) 25 MG tabletIndications:Anxie ty Take 1 (one) tablet by mouth once daily 30 tablet 02/21/2023 11/20/2023 topiramate (Topamax) 50 MG tabletIndications:Sleep disturbance Take 1 (one) tablet by mouth at bedtime 90 tablet 1 01/19/2023 11/20/2023 valACYclovir (Valtrex) 500 MG tablet Take 1 (one) tablet by mouth 3 times daily 30 tablet 10/02/2022 04/07/2024 documented as of this encounter Plan of Treatment Not on file documented as of this encounter Procedures Procedure Name Priority Date/Time Associated Diagnosis Comments CT ABDOMEN PELVIS WO CONTRAST Routine 06/26/2023 8:58 AM TRIAGE ASSISTANT Hernia of abdominal wall documented in this encounter Results * CT ABDOMEN PELVIS WO CONTRAST (06/26/2023 8:58 AM TRIAGE ASSISTANT) Anatomical Region Laterality Modality Abdomen, Pelvis Computed Tomogra phy 06/26/2023 9:24 AM TRIAGE ASSISTANT Impressions 06/26/2023 10:42 AM TRIAGE ASSISTANT Large amount of stool throughout the colon, especially in the left abdomen. Left-sided ventral hernia just to the left of the lateral rectus muscle. Hernia contains only fat at this time. Just under the hernia defect there is a loop of colon filled with stool. Considerable lobulated enlargement of the uterus probably due to numerous fibroids. Pelvic ultrasound is recommended. THIS IS AN ELECTRONICALLY VERIFIED FINAL REPORT 06/26/2023 10:42 AM - Electronically signed by ??Abelino Amador M.D. GLADIS: GLADIS D: ??06/26/2023 10:42 AM T: ??06/26/2023 10:42 AM Report ID: [id number] Reading Location: ??[id number] Narrative 06/26/2023 10:42 [place] [address] RADIOLOGY REPORT Patient Name: BETHANIE COTO ? Date of Service:06/26/2023 ?? Date of :1970 ?? Age:52 ?? Sex:F Requesting Fernie KELLER Examination:CT ABDOMEN PELVIS WO CONTRAST EXAM DESCRIPTION: ?? CT ABDOMEN PELVIS WO CONTRAST REASON FOR STUDY: ?? Patient has been having area at site where colostomy was become hard and bulging. She had colostomy reversed 05/11. When the area gets hard, it does resolve when she has a bowel movement. Duration: . Previous Surgery: colostomy w/ reversal She had colostomy for recto-vaginal fistula TECHNIQUE: CT scan of the abdomen and pelvis performed without intravenous and ??without ??oral contrast using helical scanning technique. Reconstructed coronal and sagittal MPR images reviewed. All images stored on PACS. Automated exposure control was used as a dose optimization technique for this examination. COMPARISON: ?? None REFERENCE: Per ACR white paper recommendations, unless otherwise specified no follow-up imaging is recommended for incidental renal and adrenal lesions per consensus recommendations based on imaging criteria. Further lab evaluation could be pursued based on clinical findings. FINDINGS: The sensitivity for detection of visceral lesions is diminished without the use of intravenous contrast. LOWER CHEST: ?? No significant pulmonary abnormalities. No effusion. LIVER: ?? Normal size. ??No identified cystic or solid masses. GALLBLADDER: ?? No stones identified. No wall thickening or inflammatory changes. BILE DUCTS: ?? No intrahepatic or extrahepatic ductal dilatation. SPLEEN: ?? Normal size. ??No focal lesions. PANCREAS: ?? No identified cystic or solid masses. ??No significant calcifications. No adjacent inflammation or peripancreatic fluid collections. Pancreatic duct not dilated. ADRENALS: ?? Normal. KIDNEYS/URINARY TRACT: ?? No identified significant cystic or solid masses. No stones. No hydronephrosis or hydroureter. ?Urinary bladder is unremarkable. GI: ?? There is no bowel obstruction or inflammatory bowel disease. ?? A large amount of stool is seen throughout the colon, especially in the left abdomen with the patient had previous colon surgery. PERITONEUM: ?? No ascites or free air. RETROPERITONEUM: ?? No mass or adenopathy. REPRODUCTIVE: ?? There is considerable lobulated enlargement of the uterus probably due to numerous fibroids. ??Pelvic ultrasound is recommended. VASCULATURE: ?? No abdominal aortic aneurysm. MUSCULOSKELETAL: ?? There is left-sided ventral hernia just to the left of the lateral rectus muscle. ??Hernia ??contains only fat at this time. ??Just under the hernia defect there is a loop of colon filled with stool. OTHER: ?? No other abnormality. Procedure Note Jeff Amador MD - 06/26/2023 [place] [id number] RADIOLOGY REPORT Patient Name: BETHANIE COTO Date of Service:06/26/2023 Date of :1970 Age:52 Sex:F Requesting PhysicianENRIQUE KELLER Examination:CT ABDOMEN PELVIS WO CONTRAST EXAM DESCRIPTION: CT ABDOMEN PELVIS WO CONTRAST REASON FOR STUDY: Patient has been having area at site where colostomy was become hard and bulging. She had colostomy reversed 05/11. When the area gets hard, it does resolve when she has a bowel movement. Duration: . Previous Surgery: colostomy w/ reversal She had colostomy for recto-vaginal fistula TECHNIQUE: CT scan of the abdomen and pelvis performed without intravenous and without oral contrast using helical scanning technique. Reconstructed coronal and sagittal MPR images reviewed. All images stored on PACS. Automated exposure control was used as a dose optimization technique for this examination. COMPARISON: None REFERENCE: Per ACR white paper recommendations, unless otherwise specified no follow-up imaging is recommended for incidental renal and adrenal lesions per consensus recommendations based on imaging criteria. Further lab evaluation could be pursued based on clinical findings. FINDINGS: The sensitivity for detection of visceral lesions is diminished without the use of intravenous contrast. LOWER CHEST: No significant pulmonary abnormalities. No effusion. LIVER: Normal size. No identified cystic or solid masses. GALLBLADDER: No stones identified. No wall thickening or inflammatory changes. BILE DUCTS: No intrahepatic or extrahepatic ductal dilatation. SPLEEN: Normal size. No focal lesions. PANCREAS: No identified cystic or solid masses. No significant calcifications. No adjacent inflammation or peripancreatic fluid collections. Pancreatic duct not dilated. ADRENALS: Normal. KIDNEYS/URINARY TRACT: No identified significant cystic or solid masses. No stones. No hydronephrosis or hydroureter. Urinary bladder is unremarkable. GI: There is no bowel obstruction or inflammatory bowel disease. A large amount of stool is seen throughout the colon, especially in the left abdomen with the patient had previous colon surgery. PERITONEUM: No ascites or free air. RETROPERITONEUM: No mass or adenopathy. REPRODUCTIVE: There is considerable lobulated enlargement of the uterus probably due to numerous fibroids. Pelvic ultrasound is recommended. VASCULATURE: No abdominal aortic aneurysm. MUSCULOSKELETAL: There is left-sided ventral hernia just to the left of the lateral rectus muscle. Hernia contains only fat at this time. Just under the hernia defect there is a loop of colon filled with stool. OTHER: No other abnormality. IMPRESSION Large amount of stool throughout the colon, especially in the left abdomen. Left-sided ventral hernia just to the left of the lateral rectus muscle. Hernia contains only fat at this time. Just under the hernia defect there is a loop of colon filled with stool. Considerable lobulated enlargement of the uterus probably due to numerous fibroids. Pelvic ultrasound is recommended. THIS IS AN ELECTRONICALLY VERIFIED FINAL REPORT 06/26/2023 10:42 AM - Electronically signed by Abelino Amador M.D. GLADIS: GLADIS Report ID: [id number] Reading Location: [place] [address] ORDERABLES documented in this encounter Visit Diagnoses Diagnosis Hernia of abdominal wall Ventral hernia, unspecified, without mention of obstruction or gangrene documented in this encounter Care Teams Battery Inspector Relationship Specialty Start Date End Date Ton Hernandez APRN-VIJI [address] [place] [address] PCP - General Nurse Practitioner 05/12/22 documented as of this encounter
--- OUTSIDE RECORDS SUMMARY | 2024-08-18 10:02 | XMS_ITS | Encounter Summary ---
Author Organization [facility] Address [address] [place] [address] Care Team Providers Care Vehicle Upholsterer Name Role Phone Ton Hernandez Primary Care Provider + Reason for Visit * Reason Onset Date Comments Results 04/26/2024 Encounter Details Date Type Department Care Team ([facility] st Contact Info) Description 04/26/2024 Telephone LTAC, located within [facility] [address] [place] [address] Ton Hernandez APRN-CNP [address] [place] [address] Results Social History Tobacco Use Types Packs/Day Years Used Date Smoking Tobacco: Never Smokeless Tobacco: Never Alcohol Use Standard Drinks/Week Comments Not Currently 0 (1 standard drink = 0.6 oz pur e alcohol) PHQ-2 Answer Date Recorded Patient Health Questionnaire-2 Score 0 04/07/2024 Sex and Gender Information Value Date Recorded Sex Assigned at Not on file Gender Identity Not on file Sexual Orientation Not on file documented as of this encounter Miscellaneous Notes * Telephone Encounter - Dinora Wilder - 04/28/2024 2:02 PM CDT Pt has called and left a message asking for a CB. I have attempted to call patient. No answer. * Telephone Encounter - Renea Adler RN - 04/26/2024 10:36 AM CDT Attempted to call patient and no answer, VM left on personal VM relaying PCP message and to call ifquestions arise. * Telephone Encounter - Renea Adler RN - 04/26/2024 10:35 AM CDT ----- Message from YANET Hadley sent at 04/26/2024 10:17 AM CDT ----- Please let Belem know labs are good overall. documented in this encounter Plan of Treatment Not on file documented as of this encounter Visit Diagnoses Not on filedocumented in this encounter Care Teams Vehicle Upholsterer Relationship Specialty Start Date End Date Ton Hernandez APRN-CNP [address] [place] [phone] PCP - General Nurse Practitioner 05/12/22 documented as of this encounter
--- OUTSIDE RECORDS SUMMARY | 2024-08-18 10:02 | XMS_ITS | Encounter Summary ---
Author Organization [facility] Address [address] [place] [address] Care Team Providers Care Religious Education Director Name Role Phone Ton Hernandez Primary Care Provider + Reason for Visit * Reason Comments Medication Check Encounter Details Date Type Department Care Team ([facility] Contact Info) Description 02/21/2023 10:30 AM CDT Office Visit [facility] [address] [place] [address] Ton Hernandez APRN-CNP [address] [place] [address] Anxiety (Primary Dx) Social History Tobacco Use Types Packs/Day Years Used Date Smoking Tobacco: Never Smokeless Tobacco: Never Tobacco Cessation:Counseling Given: Not Answered Alcohol Use Standard Drinks/Week Comments Not Currently 0 (1 standard drink = 0.6 oz pur e alcohol) PHQ-2 Answer Date Recorded PHQ2 TOTAL SCORE 0 02/21/2023 Sex and Gender Information Value Date Recorded Sex Assigned at Not on file Gender Identity Not on file Sexual Orientation Not on file documented as of this encounter Last Filed Vital Signs Vital Sign Reading Time Taken Comments Blood Pressure 128/82 02/21/2023 10:39 AM CDT Pulse 66 02/21/2023 10:39 AM CDT Temperature 36.6 ??C (97.8 ??F) 02/21/2023 1 0:39 AM CDT Respiratory Rate 18 02/21/2023 10:3 9 AM CDT Oxygen Saturation 98% 02/21/2023 10: 39 AM CDT Inhaled Oxygen Concentration - - Weight 94.3 kg (207 lb 12.8 oz) 023 10:39 AM CDT Height 177.8 cm (5' 10 ) 02/21/2023 10: 39 AM CDT Body Mass Index 29.82 02/21/2023 10:39 AM CDT documented in this encounter Progress Notes * Ton Hernandez APRN-CNP - 02/21/2023 10:57 AM CDT 02/21/2023 PCP: YANET Langston CC: Chief Complaint Patient presents with ??? Medication Check . HPI: Belem Coto is a 52 year old female presents today for medication follow up. She has weaned off of Effexor, and is taking paxil. States she is still very irritable, and is bruising. States she is also having some new problems with bowel incontinence that had been controlled. Believes it may be side effects from medication. Outpatient Medications Prior to Visit Medication Sig Dispense Refill ??? Ascorbic Acid 1000 MG Take 1 (one) tablet by mouth at bedtime ??? Biotin 1000 MCG CHEW Take 1 capsule by mouth once daily ??? Cholecalciferol 50 MCG (2000 UT) Take 2,000 Units by mouth at bedtime ??? fish oil/omega-3 fatty acids (Promega;Cardi-[place] 3) 1000 MG capsule Take 1 (one) capsule by mouth at bedtime ??? ibuprofen (Motrin) 600 MG tablet every 6 hours as needed ??? Loperamide (Imodium) 2 MG tablet Take 1 (one) tablet by mouth 4 times daily as needed for Diarrhea ??? LORazepam (Ativan) 0.5 MG tablet Take 1 (one) tablet by mouth at bedtime 30 tablet 0 ??? LYSINE PO Take 1 tablet by mouth once daily ??? Multiple Vitamin (MULTIVITAMIN ADULT PO) Take 1 capsule by mouth once daily ??? Multiple Vitamins-Minerals (ZINC PO) Take 1 tablet by mouth once daily ??? PARoxetine (Paxil) 10 MG tablet Take 1 (one) tablet by mouth once daily 30 tablet 1 ??? simethicone (Gas-X) 125 MG capsule Take by mouth as needed ??? topiramate (Topamax) 50 MG tablet Take 1 (one) tablet by mouth at bedtime 90 tablet 1 ??? valACYclovir (Valtrex) 500 MG tablet Take 1 (one) tablet by mouth 3 times daily (Patient takingdifferently: Take 1 (one) tablet by mouth 3 times daily as needed) 30 tablet 0 ??? venlafaxine XR 24hr (Effexor XR) 37.5 MG capsule Take 1 capsule every other day x 2 weeks. 14 capsule 0 No facility-administered medications prior to visit. Depression: 02/21/2023 10:39 AM Patient Health Questionnaire [place]? 0 Feeling Down? 0 Past Medical History: Diagnosis Date ??? Anal fistula ??? Anxiety disorder ??? Rectovaginal fistula Past Surgical History: Procedure Laterality Date ??? Appendectomy 1977 ??? Colostomy 2019 ??? ENDOMETRIAL ABLATION 2010 ??? INTEROENTERIC/ENTEROCOLIC FISTULA CLOSURE 2019 vaginal rectal fistula 4 flap procedures ??? Lipectomy 2008 ??? OTHER SURGERY 05/18/2022 colostomy reversal Social History Tobacco Use Smoking Status Never Smokeless Tobacco Never Vaping Use ??? Vaping Use: Never used Social History Substance and Sexual Activity Drug Use Never No Known Allergies Family History Problem Relation Name Age of Onset ??? None Known Mother ??? None Known Father Review of Systems: Review of Systems Constitutional: Negative for chills and fever. Gastrointestinal: Negative for abdominal pain, constipation, diarrhea, nausea and vomiting. Incontinence of stool due to fistula Skin: Negative for rash. Neurological: Negative for dizziness and headaches. Psychiatric/Behavioral: The patient is nervous/anxious. Irritability Exam: BP 128/82 (BP SITE: LEFT ARM, BP POSITION: SITTING, BP CUFF SIZE: 12) Pulse 66 Temp 97.8 ??F (36.6 ??C) (Temporal) Resp 18 Ht 1.778 m (5' 10 ) Wt 94.3 kg (207 lb 12.8 oz) SpO2 98% BMI 29.82 kg/m?? Physical Exam Constitutional: Appearance: Normal appearance. HENT: Head: Normocephalic. Right Ear: Tympanic membrane, ear canal and external ear normal. Left Ear: Tympanic membrane, ear canal and external ear normal. Nose: Nose normal. Mouth/Throat: Mouth: Mucous membranes are moist. Pharynx: Oropharynx is clear. Eyes: Extraocular Movements: Extraocular movements intact. Conjunctiva/sclera: Conjunctivae normal. Pupils: Pupils are equal, round, and reactive to light. Cardiovascular: Rate and Rhythm: Normal rate and regular rhythm. Pulmonary: Effort: Pulmonary effort is normal. Breath sounds: Normal breath sounds. Neurological: Mental Status: She is alert. No results found for this visit on 02/21/23. Plan Impression: 1. Anxiety Stop paxil. Start Zoloft. Follow up in 1 month. - sertraline (Zoloft) 25 MG tablet; Take 1 (one) tablet by mouth once daily Treatment: Orders Placed This Encounter ??? PARoxetine (Paxil) 20 MG tablet Sig: Take 1 (one) tablet by mouth once daily Dispense: 90 tablet Refill: 2 There are no Patient Instructions on file for this visit. Medications Discontinued During This Encounter Medication Reason ??? venlafaxine XR 24hr (Effexor XR) 37.5 MG capsule No Pharm No AVS ??? PARoxetine (Paxil) 10 MG tablet No Pharm No AVS Current Outpatient Medications Medication Sig Dispense Refill ??? Ascorbic Acid 1000 MG Take 1 (one) tablet by mouth at bedtime ??? Biotin 1000 MCG CHEW Take 1 capsule by mouth once daily ??? Cholecalciferol 50 MCG (2000 UT) Take 2,000 Units by mouth at bedtime ??? fish oil/omega-3 fatty acids (Promega;Cardi-[place] 3) 1000 MG capsule Take 1 (one) capsule by mouth at bedtime ??? ibuprofen (Motrin) 600 MG tablet every 6 hours as needed ??? Loperamide (Imodium) 2 MG tablet Take 1 (one) tablet by mouth 4 times daily as needed for Diarrhea ??? LORazepam (Ativan) 0.5 MG tablet Take 1 (one) tablet by mouth at bedtime 30 tablet 0 ??? LYSINE PO Take 1 tablet by mouth once daily ??? Multiple Vitamin (MULTIVITAMIN ADULT PO) Take 1 capsule by mouth once daily ??? Multiple Vitamins-Minerals (ZINC PO) Take 1 tablet by mouth once daily ??? PARoxetine (Paxil) 20 MG tablet Take 1 (one) tablet by mouth once daily 90 tablet 2 ??? simethicone (Gas-X) 125 MG capsule Take by mouth as needed ??? topiramate (Topamax) 50 MG tablet Take 1 (one) tablet by mouth at bedtime 90 tablet 1 ??? valACYclovir (Valtrex) 500 MG tablet Take 1 (one) tablet by mouth 3 times daily (Patient takingdifferently: Take 1 (one) tablet by mouth 3 times daily as needed) 30 tablet 0 No current facility-administered medications for this visit. Follow up : No follow-ups on file. YANET Langston documented in this encounter Plan of Treatment Not on file documented as of this encounter Visit Diagnoses Diagnosis Anxiety- Primary Anxiety state, unspecified documented in this encounter Care Teams Religious Education Director Relationship Specialty Start Date End Date Ton Hernandez APRN-CNP [address] [place] [phone] PCP - General Nurse Practitioner 05/12/22 documented as of this encounter
--- OUTSIDE RECORDS SUMMARY | 2024-08-18 10:02 | XMS_ITS | Encounter Summary ---
Author Organization [facility] Address [address] [place] [address] Care Team Providers Care Batter Out Name Role Phone Ton Hernandez Primary Care Provider + Encounter Details Date Type Department Care Team (Late st Contact Info) Description 02/27/2024 Orders Only [facility] [address] [place] [address] Ton Hernandez APRN-CNP [address] [place] [address] Anxiety; Sleep disturbance Social History Tobacco Use Types Packs/Day Years Used Date Smoking Tobacco: Never Smokeless Tobacco: Never Alcohol Use Standard Drinks/Week Comments Not Currently 0 (1 standard drink = 0.6 oz pur e alcohol) PHQ-2 Answer Date Recorded Patient Health Questionnaire-2 Score 0 11/20/2023 Sex and Gender Information Value Date Recorded Sex Assigned at Not on file Gender Identity Not on file Sexual Orientation Not on file documented as of this encounter Progress Notes * Shena Ace - 02/27/2024 3:06 PM CDT I have contacted Belem today. In regards to the message in her chart from Lolita/Ton. Belem has scheduled an apt with Ton for 04-07-24 @ 3 pm. Belem has confirmed all apt information. * Ton Hernandez APRN-CNP - 02/27/2024 11:51 AM CDT Please call to schedule a follow up apt. Medication refills. documented in this encounter Plan of Treatment Not on file documented as of this encounter Visit Diagnoses Diagnosis Anxiety Anxiety state, unspecified Sleep disturbance Sleep disturbance, unspecified documented in this encounter Care Teams Batter Out Relationship Specialty Start Date End Date Ton Hernandez APRN-CNP [address] [place] [address] PCP - General Nurse Practitioner 05/12/22 documented as of this encounter
--- OUTSIDE RECORDS SUMMARY | 2024-08-18 10:02 | XMS_ITS | Encounter Summary ---
Author Organization [facility] Address [address] [place] [address] Care Team Providers Care Clothing Manager Name Role Phone Ton Hernandez Primary Care Provider + Reason for Visit * Reason Onset Date Comments Results 03/19/2024 Encounter Details Date Type Department Care Team ([facility] st Contact Info) Description 03/19/2024 Telephone [facility] [address] [place] [address] Ton Hernandez APRN-CNP [address] [place] [address] Results Social History Tobacco Use Types Packs/Day Years Used Date Smoking Tobacco: Never Smokeless Tobacco: Never Alcohol Use Standard Drinks/Week Comments Not Currently 0 (1 standard drink = 0.6 oz pur e alcohol) PHQ-2 Answer Date Recorded Patient Health Questionnaire-2 Score 0 03/14/2024 Sex and Gender Information Value Date Recorded Sex Assigned at Not on file Gender Identity Not on file Sexual Orientation Not on file documented as of this encounter Miscellaneous Notes * Telephone Encounter - Malissa Loera - 03/19/2024 2:13 PM CDT Relayed provider's message to patient; voiced understanding. * Telephone Encounter - Malissa Loera - 03/19/2024 2:13 PM CDT ----- Message from YANET Hadley sent at 03/19/2024 2:01 PM CDT ----- Please let Belem know the TB test was negative. documented in this encounter Plan of Treatment Not on file documented as of this encounter Visit Diagnoses Not on filedocumented in this encounter Care Teams Clothing Manager Relationship Specialty Start Date End Date Ton Hrenandez APRN-CNP [address] [place] [address] PCP - General Nurse Practitioner 05/12/22 documented as of this encounter
--- OUTSIDE RECORDS SUMMARY | 2024-08-18 10:02 | XMS_ITS | Encounter Summary ---
Author Organization [facility] Address [address] [place] [address] Care Team Providers Care Stitch Bonding Machine Tender Name Role Phone Ton Hernandez APRN-[facility] Primary Care Provider + Reason for Referral * Consultation (Routine) - Closed Specialty Diagnoses / Procedures Referred By Contac t Referred To Contact General Surgery Diagnoses Ventral hernia without obstruction or gangrene Cammy Keller MD [address] [place] [address] Referral ID Status Reason Start Date Expiration Date V isits Requested Visits Authorized [id number] Closed Specialty Services Required 06/29/2023 06/28/2024 1 1 PUMP OPERATOR Encounter Details Date Type Department Care Team ([facility] st Contact Info) Description 06/29/2023 Orders Only [facility]- Family Medicine [address] [place] [address] Cammy Keller MD [address] [place] [address] Ventral hernia without obstruction or gangrene Social History Tobacco Use Types Packs/Day Years [...] on file documented as of this encounter Plan of Treatment Scheduled Referrals Name Type Priority Associated Diagnoses Orde r Schedule AMB REFERRAL TO GENERAL SURGERY Outpatient Referral Routine Ventral hernia without obstruction or gangrene 1 Occurrences starting 06/29/2023 until 06/29/2024 documented as of this encounter Visit Diagnoses Diagnosis Ventral hernia without obstruction or gangrene- Primary Ventral hernia, unspecified, without mention of obstruction or gangrene documented in this encounter Care Teams Stitch Bonding Machine Tender Relationship Specialty Start Date End Date Ton Hernandez APRN-VIJI [address] [place] [address] PCP - General Nurse Practitioner 05/12/22 documented as of this encounter
--- OUTSIDE RECORDS SUMMARY | 2024-08-18 10:02 | XMS_ITS | Encounter Summary ---
Author Organization [facility] Address [address] [place] [address] Care Team Providers Care Fbi Field Agent Name Role Phone Ton Hernandez Primary Care Provider + Encounter Details Date Type Department Care Team (Latest Contact Info) Description 03/17/2024 10:03 AM CDT - 03/17/2024 11:59 PM CDT Hospital Encounter [facility] [address] [place] [address] Ton Hernandez APRN-CNP [address] [place] [address] Discharge Disposition: Home or Self Care Social [...] by mouth once daily Cholecalciferol 50 MCG (1999 UT) Take 2,000 Units by mouth at bedtime fish oil/omega-3 fatty acids (Promega;Cardi-Waves 3) 1000 MG capsule Take 1 (one) capsule by mouth at bedtime LYSINE PO Take 1 tablet by mouth once daily Multiple Vitamin (MULTIVITAMIN ADULT PO) Take 1 capsule by mouth once daily simethicone (Gas-X) 125 MG capsule Take by mouth as needed tirzepatide (Mounjaro) 7.5 MG/0.5ML injection Inject 7.5 (seven and one-half) mg subcutaneously every 7 days ibuprofen (Motrin) 600 MG tablet every 6 hours as needed 05/20/2022 LORazepam (Ativan) 0.5 MG tabletIndications:An xiety,Sleep disturbance Take 1 (one) tablet by mouth 2 times daily as needed for Anxiety 20 tablet 02/27/2024 04/14/2024 Multiple Vitamins-Minerals (ZINC PO) Take 1 tablet by mouth once daily 04/07/2024 traZODone (Desyrel) 50 MG tabletIndications:In somnia, unspecified type Take 0.5 (one-half) tablet by mouth at bedtime 30 tablet 1 03/14/2024 04/07/2024 valACYclovir (Valtrex) 500 MG tablet Take 1 (one) tablet by mouth 3 times daily 30 tablet 10/02/2022 04/07/2024 documented as of this encounter Plan of Treatment Not on file documented as of this encounter Procedures Procedure Name Priority Date/Time Associated Diagnosis Comments TB TEST T SPOT Routine 03/17/2024 10:10 AM CDT Screening examination for pulmonary tuberculosis documented in this encounter Results * TB TEST T SPOT (03/17/2024 10:10 AM CDT) TB Skin Test Result 0 0-10 mm Induration mm Induration 03/19/2024 12:34 PM CDT [facility]) Blood BLOOD SPECIMEN / Unknown Collection / Unknown 03/17/2024 10:10 AM CDT 03/17/2024 10:10 AM CDT Ton Hernandez RECREATION COUNSELOR-[employer] - CHEMISTRY ORDERABLES [facility] ([facility]) [address] [place] [address] documented in this encounter Visit Diagnoses Diagnosis Screening examination for pulmonary tuberculosis documented in this encounter Care Teams Fbi Field Agent Relationship Specialty Start Date End Date Ton Hernandez, JACK-VIJI [address] [place] [address] PCP - General Nurse Practitioner 05/12/22 documented as of this encounter
--- OUTSIDE RECORDS SUMMARY | 2024-08-18 10:02 | XMS_ITS | Encounter Summary ---
Author Organization [facility] Address [address] [place] [address] Care Team Providers Care Collections And Archives Director Name Role Phone Ton Hernandez Primary Care Provider + Encounter Details Date Type Department Care Team (Late st Contact Info) Description 04/26/2023 Office Visit External - [facility] [address] [place] [address] Document, Scanned Social History Tobacco Use Types Packs/Day Years [...] on filedocumented in this encounter Care Teams Collections And Archives Director Relationship Specialty Start Date End Date Ton Hernandez APRN-CNP [address] [place] [phone] PCP - General Nurse Practitioner 05/12/22 documented as of this encounter
--- OUTSIDE RECORDS SUMMARY | 2024-08-18 10:02 | XMS_ITS | Encounter Summary ---
Author Organization [facility] Address [address] [facility] [place] [address] Care Team Providers Care Sole Layer Hand Name Role Phone Ton Hernandez APRN-[facility] Primary Care Provider + Reason for Visit * Radiology Services (Routine) - Open Specialty Diagnoses / Procedures Referred By Contac t Referred To Contact Diagnoses Bilateral foot-drop Procedures MRI Lumbar Spine Wo Contrast Chelita Polanco [facility] [address] [place] [address] [facility] [address] [place] [address] Referral ID Status Reason Start Date Expiration Date Visits Re quested Visits Authorized [id number] Open 06/19/2024 06/19/2025 1 1 Encounter Details Date Type Department Care Team (Latest Contact Info) Description 06/19/2024 2:19 PM CDT - 06/19/2024 11:59 PM CDT Hospital Encounter [facility] [address] [place] [address] Chelita Polanco [facility] [address] [place] [address] Discharge Disposition: Home or Self Care Social [...] mouth at bedtime fish oil/omega-3 fatty acids (Promega;Cardi-Mentmore 3) 1000 MG capsule Take 1 (one) capsule by mouth at bedtime LORazepam (Ativan) 0.5 MG tabletIndications:Anx iety,Sleep disturbance Take 1 (one) tablet by mouth 2 times daily as needed for Anxiety 20 tablet 04/15/2024 LYSINE PO Take 1 tablet by mouth once daily Multiple Vitamin (MULTIVITAMIN ADULT PO) Take 1 capsule by mouth once daily predniSONE (Deltasone) 10 MG tablet Take 3 tabs daily x 3 days, then 2 tabs daily x 3 days, then 1 tabs daily x 3 days,then 1/2 tab daily x 3 days, then stop 32 tablet 04/30/2024 simethicone (Gas-X) 125 MG capsule Take by mouth as needed tirzepatide (Mounjaro) 7.5 MG/0.5ML injection Inject 7.5 (seven and one-half) mg subcutaneously every 7 days valACYclovir (Valtrex) 500 MG tablet Take 1 (one) tablet by mouth 3 times daily as needed 30 tablet 1 04/07/2024 Zinc 50 MG tablet Take 1 (one) tablet by mouth once daily documented as of this encounter Plan of Treatment Not on file documented as of this encounter Procedures Procedure Name Priority Date/Time Associated Diagnosis Comments MRI LUMBAR SPINE WO CONTRAST Routine 06/19/2024 3:34 PM CDT Bilateral foot-drop documented in this encounter Results * MRI Lumbar Spine Wo Contrast (06/19/2024 3:34 PM CDT) Anatomical Region Laterality Modality Spine Magnetic Resonan ce 06/20/2024 7:41 AM CDT Impressions 06/20/2024 7:47 AM CDT Multilevel lumbar degenerative disc and joint disease, as detailed level by level above. There is mild spinal canal stenosis at L3-L4 with mild narrowing of the lateral recesses, etlom-cuaskkb-ihia-left. Multilevel neural foraminal stenosis, up to moderate on the right at L5-S1. Right renal pelvocaliectasis. Mild prominence of the left renal pelvis. THIS IS AN ELECTRONICALLY VERIFIED FINAL REPORT 06/20/2024 7:47 AM - Electronically signed by ??Nestor Tenorio M.D. MZ: NEELAM D: ??06/20/2024 7:47 AM T: ??06/20/2024 7:47 AM Report ID: [id number] Reading Location: ??[id number] Narrative 06/20/2024 7:[place] [address] RADIOLOGY REPORT Patient Name: BETHANIE COTO ? Date of Service:06/19/2024 ?? Date of :1970 ?? Age:53 ?? Sex:F Requesting Physician Examination:MRI LUMBAR SPINE WO CONTRAST EXAM DESCRIPTION: ?? MRI LUMBAR SPINE WO CONTRAST REASON FOR STUDY: ?? Patient has had bilateral foot drop for 2 weeks. Duration: . TECHNIQUE: ??Sagittal and Axial imaging includes T1, T2, STIR sequences. ? COMPARISON: ?? CT 06/26/2021 FINDINGS: SEGMENTATION: ?? No transitional anatomy. The lowest well-developed disc space is labeled L5-S1. ALIGNMENT: ?? There is mild dextroscoliosis of the lumbar spine. VERTEBRAE: ?? No marrow replacement. ??No MR evidence for recent fracture or ligamentous injury. ??No paravertebral soft tissue swelling. DISC HEIGHT: ?? Mild multilevel degenerative disc height loss and desiccation HARDWARE: ?? None in the spine. CORD/CAUDA: ?? Normal in size and signal intensity. Conus at the L1-L2 level. LOWER THORACIC: ?? See below INDIVIDUAL DISC LEVELS: T12-L1: Normal disc configuration. ??Mild facet arthropathy. ??No neural foraminal or spinal canal stenosis L1-2: ?? Mild disc bulge. ??Normal facet joints. ??Mild left neural foraminal stenosis. ??No spinal canal stenosis L2-3: ?? Mild disc bulge. ??Mild bilateral facet arthropathy. ??No significant neural foraminal stenosis or spinal canal stenosis. L3-4: ?? Disc bulge. ??Mild bilateral facet arthropathy. ??Mild bilateral neural foraminal stenosis. ??Mild spinal canal stenosis with mild narrowing of the lateral recesses, ewbdc-yqovxzz-dlrh-left. L4-5: ?? Disc bulge. ??Ktck-jz-rbaymfkj bilateral facet arthropathy. ?? Mild right and kjmt-mh-jbngtbzm left neural foraminal stenosis. ?? No significant spinal canal stenosis. L5-S1: ?? Disc bulge. ??Moderate right and mild left facet arthropathy. ??Moderate right and mild left neural foraminal stenosis. ??No spinal canal stenosis SACRUM: ?? Visualized upper sacrum intact. VISUALIZED UPPER ABDOMEN: ?? There is a right renal pelvocaliectasis. There is mild prominence of the left renal pelvis. OTHER: ?? No other significant findings. Procedure Note Nestor Tenorio MD - 06/20/2024 [place] [address] RADIOLOGY REPORT Patient Name: BETHANIE COTO Date of Service:06/19/2024 Date of :1970 Age:53 Sex:F Requesting Physician Examination:MRI LUMBAR SPINE WO CONTRAST EXAM DESCRIPTION: MRI LUMBAR SPINE WO CONTRAST REASON FOR STUDY: Patient has had bilateral foot drop for 2 weeks. Duration: . TECHNIQUE: Sagittal and Axial imaging includes T1, T2, STIR sequences. COMPARISON: CT 06/26/2021 FINDINGS: SEGMENTATION: No transitional anatomy. The lowest well-developed disc space is labeled L5-S1. ALIGNMENT: There is mild dextroscoliosis of the lumbar spine. VERTEBRAE: No marrow replacement. No MR evidence for recent fracture or ligamentous injury. No paravertebral soft tissue swelling. DISC HEIGHT: Mild multilevel degenerative disc height loss and desiccation HARDWARE: None in the spine. CORD/CAUDA: Normal in size and signal intensity. Conus at the L1-L2 level. LOWER THORACIC: See below INDIVIDUAL DISC LEVELS: T12-L1: Normal disc configuration. Mild facet arthropathy. No neural foraminal or spinal canal stenosis L1-2: Mild disc bulge. Normal facet joints. Mild left neural foraminal stenosis. No spinal canal stenosis L2-3: Mild disc bulge. Mild bilateral facet arthropathy. No significant neural foraminal stenosis or spinal canal stenosis. L3-4: Disc bulge. Mild bilateral facet arthropathy. Mild bilateral neural foraminal stenosis. Mild spinal canal stenosis with mild narrowing of the lateral recesses, owmfp-nrvsbyb-uaei-left. L4-5: Disc bulge. Gsgz-wz-orhzeupb bilateral facet arthropathy. Mild right and ttcr-iu-aizbwwog left neural foraminal stenosis. No significant spinal canal stenosis. L5-S1: Disc bulge. Moderate right and mild left facet arthropathy. Moderate right and mild left neural foraminal stenosis. No spinal canal stenosis SACRUM: Visualized upper sacrum intact. VISUALIZED UPPER ABDOMEN: There is a right renal pelvocaliectasis. There is mild prominence of the left renal pelvis. OTHER: No other significant findings. IMPRESSION Multilevel lumbar degenerative disc and joint disease, as detailed level by level above. There is mild spinal canal stenosis at L3-L4 with mild narrowing of the lateral recesses, yjsif-ynrhtgf-lgka-left. Multilevel neural foraminal stenosis, up to moderate on the right at L5-S1. Right renal pelvocaliectasis. Mild prominence of the left renal pelvis. THIS IS AN ELECTRONICALLY VERIFIED FINAL REPORT 06/20/2024 7:47 AM - Electronically signed by Nestor Tenorio M.D. MZ: NEELAM Report ID: [id number] Reading Location: [place] [address] Provider Unknown MR ORDERABLES documented in this encounter Visit Diagnoses Diagnosis Bilateral foot-drop Other acquired deformity of ankle and foot documented in this encounter Care Teams Sole Layer Hand Relationship Specialty Start Date End Date Ton Hernandez APRN-VIJI [address] [place] [address] PCP - General Nurse Practitioner 05/12/22 documented as of this encounter
--- OUTSIDE RECORDS SUMMARY | 2024-08-18 10:02 | XMS_ITS | Encounter Summary ---
Author Organization [facility] Address [address] [place] [address] Care Team Providers Care Commercial Escrow Assistant Name Role Phone Ton Hernandez Primary Care Provider + Reason for Visit * Reason Comments Physical Encounter Details Date Type Department Care Team ([facility] Contact Info) Description 03/14/2024 9:00 AM CDT Office Visit formerly [facility] [address] [place] [address] Ton Hernandez APRN-CNP [address] [place] [address] Insomnia, unspecified type (Primary Dx); Annual physical exam; Screening examination for pulmonary tuberculosis Social History Tobacco Use Types Packs/Day Years [...] Sign Reading Time Taken Comments Blood Pressure 124/68 03/14/2024 9:06 AM CDT Pulse 92 03/14/2024 9:06 AM CDT Temperature 36.4 ??C (97.6 ??F) 03/14/2024 9:06 AM CD T Respiratory Rate 18 03/14/2024 9:06 AM CDT Oxygen Saturation 98% 03/14/2024 9:06 AM CDT Inhaled Oxygen Concentration - - Weight 76.9 kg (169 lb 9.6 oz) 03/14/2024 9:06 A M CDT Height 177.8 cm (5' 10 ) 03/14/2024 9:06 AM CDT Body Mass Index 24.34 03/14/2024 9:06 AM CDT documented in this encounter Progress Notes * Hernandez Ton, [facility] [facility] ATTENDANT-ANIMAL BREEDER - 03/14/2024 9:34 AM CDT Belem Coto 1970 53 year old DOS 03/14/2024 Chief Complaint Patient presents with Physical HPI: Current Medications: Encounter Diagnoses Name Primary? Annual physical exam Yes Screening examination for pulmonary tuberculosis Insomnia, unspecified type Complains of insomnia symptoms worsening. States the lorazepam is just not helping anymore. Current Outpatient Medications Medication Ascorbic Acid 1000 MG Biotin 1000 MCG CHEW Cholecalciferol 50 MCG (1999 UT) fish oil/omega-3 fatty acids (Promega;Cardi-[place] 3) 1000 MG capsule ibuprofen (Motrin) 600 MG tablet LORazepam (Ativan) 0.5 MG tablet LYSINE PO Multiple Vitamin (MULTIVITAMIN ADULT PO) Multiple Vitamins-Minerals (ZINC PO) simethicone (Gas-X) 125 MG capsule tirzepatide (Mounjaro) 7.5 MG/0.5ML injection traZODone (Desyrel) 50 MG tablet valACYclovir (Valtrex) 500 MG tablet No current facility-administered medications for this visit. No specialty comments available. Medical history: Past Medical History: Diagnosis Date Anal fistula Anxiety disorder Rectovaginal fistula Allergies: No Known Allergies Surgical history: Past Surgical History: Procedure Laterality Date Appendectomy 1978 Colostomy 2020 ENDOMETRIAL ABLATION 2011 Hernia Repair Left 09/20/2023 INTEROENTERIC/ENTEROCOLIC FISTULA CLOSURE 2019 vaginal rectal fistula 4 flap procedures Lipectomy 2009 OTHER SURGERY 05/18/2022 colostomy reversal Family History: Family Status Relation Name Status Mother Father Sister Alive Mat Gmother Mat Gfather Pat Gmother Pat Gfather Family History Problem Relation Name Age of Onset None Known Mother None Known Father Social History: Social History Socioeconomic History Marital status: Spouse name: Not on file Number of children: Not on file Years of education: Not on file Highest education level: Not on file Occupational History Not on file Tobacco Use Smoking status: Never Smokeless tobacco: Never Vaping Use Vaping Use: Never used Substance and Sexual Activity Alcohol use: Not Currently Drug use: Never Sexual activity: Not on file Other Topics Concern Not on file Social History Narrative Not on file Social Determinants of Health Financial Resource Strain: Not on file Food Insecurity: Not on file Transportation Needs: Not on file Stress: Not on file Housing Stability: Not on file Depression: 03/14/2024 9:06 AM Patient Health Questionnaire Little Interest? Not at all Feeling Down? Not at all Score PHQ-2 0 Subjective: Review of Systems Constitutional: Negative for chills and fever. HENT: Negative for congestion, ear pain, sinus pain and sore throat. Respiratory: Negative for cough and shortness of breath. Cardiovascular: Negative for chest pain, palpitations and leg swelling. Gastrointestinal: Negative for abdominal pain, constipation, diarrhea, nausea and vomiting. Genitourinary: Negative for dysuria. Musculoskeletal: Negative for back pain, joint pain and neck pain. Skin: Negative for rash. Neurological: Negative for dizziness and headaches. Psychiatric/Behavioral: Negative for depression. The patient has insomnia. The patient is not nervous/anxious. OBJECTIVE: Vital signs: Vitals: 03/14/24 0906 BP: 124/68 Pulse: 92 Resp: 18 Temp: 97.6 ??F (36.4 ??C) SpO2: 98% Weight: 76.9 kg (169 lb 9.6 oz) Height: 1.778 m (5' 10 ) Height: 177.8 cm (5' 10 ) Body mass index is 24.34 kg/m??. Physical Exam: Physical Exam Vitals reviewed. Constitutional: Appearance: Normal appearance. HENT: Head: Normocephalic. Right Ear: Tympanic membrane, ear canal and external ear normal. Left Ear: Tympanic membrane, ear canal and external ear normal. Nose: Nose normal. Mouth/Throat: Mouth: Mucous membranes are moist. Pharynx: Oropharynx is clear. Eyes: Conjunctiva/sclera: Conjunctivae normal. Cardiovascular: Rate and Rhythm: Normal rate and regular rhythm. Pulses: Normal pulses. Heart sounds: Normal heart sounds. Pulmonary: Effort: Pulmonary effort is normal. Breath sounds: Normal breath sounds. Abdominal: General: Abdomen is flat. Bowel sounds are normal. Palpations: Abdomen is soft. Musculoskeletal: General: Normal range of motion. Cervical back: Normal range of motion. Skin: General: Skin is warm and dry. Neurological: General: No focal deficit present. Mental Status: She is alert. Psychiatric: Mood and Affect: Mood normal. Behavior: Behavior normal. Thought Content: Thought content normal. Judgment: Judgment normal. Today's in Office Labs: No results found for this visit on 03/14/24. ASSESSMENT/PLAN 1. Annual physical exam (Primary) 2. Screening examination for pulmonary tuberculosis See scanned form. - TB TEST T SPOT; Future 3. Insomnia, unspecified type Will star trazodone 25 mg QHS. If no improvement with 25 mg QHS may increase to 50 mg. Follow up in1 month. - traZODone (Desyrel) 50 MG tablet; Take 0.5 (one-half) tablet by mouth at bedtime Other: Continue current supplements and medications for improving/stable chronic medical conditions. Patient was encouraged to call immediately for any concerns or problems. No follow-ups on file. Final Medications: Outpatient Encounter Medications as of 03/14/2024 Medication Sig Dispense Refill Ascorbic Acid 1000 MG Take 1 (one) tablet by mouth at bedtime Biotin 1000 MCG CHEW Take 1 capsule by mouth once daily Cholecalciferol 50 MCG (2000 UT) Take 2,000 Units by mouth at bedtime fish oil/omega-3 fatty acids (Promega;Cardi-[place] 3) 1000 MG capsule Take 1 (one) capsule by mouth at bedtime ibuprofen (Motrin) 600 MG tablet every 6 hours as needed LORazepam (Ativan) 0.5 MG tablet Take 1 (one) tablet by mouth 2 times daily as needed for Anxiety 20 tablet 0 LYSINE PO Take 1 tablet by mouth once daily Multiple Vitamin (MULTIVITAMIN ADULT PO) Take 1 capsule by mouth once daily Multiple Vitamins-Minerals (ZINC PO) Take 1 tablet by mouth once daily [DISCONTINUED] nitrofurantoin monohyd macro crystals (Macrobid) 100 MG capsule Take 1 (one) capsuleby mouth 2 times daily with morning and evening meal (Patient not taking: Reported on 03/14/2024) 10capsule 0 simethicone (Gas-X) 125 MG capsule Take by mouth as needed tirzepatide (Mounjaro) 7.5 MG/0.5ML injection Inject 7.5 (seven and one-half) mg subcutaneously every 7 days traZODone (Desyrel) 50 MG tablet Take 0.5 (one-half) tablet by mouth at bedtime 30 tablet 1 valACYclovir (Valtrex) 500 MG tablet Take 1 (one) tablet by mouth 3 times daily (Patient taking differently: Take 1 (one) tablet by mouth 3 times daily as needed) 30 tablet 0 No facility-administered encounter medications on file as of 03/14/2024. @SIGNATURE@ YANET Langston 03/14/2024 9:36 AM documented in this encounter Plan of Treatment Not on file documented as of this encounter Results * TB TEST T SPOT (03/17/2024 10:10 AM CDT) TB Skin Test Result 0 0-10 mm Induration mm Induration 03/19/2024 12:34 PM CDT [facility] ([facility] Blood BLOOD SPECIMEN / Unknown Collection / Unknown 03/17/2024 10:10 AM CDT 03/17/2024 10:10 AM CDT Ton [facility] - CHEMISTRY ORDERABLES [facility] ([facility]) [address] [place] [address] documented in this encounter Visit Diagnoses Diagnosis Insomnia, unspecified type- Primary Annual physical exam Routine general medical examination at a health care facility Screening examination for pulmonary tuberculosis documented in this encounter Care Teams Commercial Escrow Assistant Relationship Specialty Start Date End Date Ton Hernandez APRN-CNP [address] [place] [address] PCP - General Nurse Practitioner 05/12/22 documented as of this encounter
--- OUTSIDE RECORDS SUMMARY | 2024-08-18 10:02 | XMS_ITS | Encounter Summary ---
Author Organization [facility] Address [address] [place] [address] Care Team Providers Care Customer Support Professional Name Role Phone Ton Hernandez Primary Care Provider + Encounter Details Date Type Department Care Team ([facility] st Contact Info) Description 04/28/2024 Orders Only [facility] [address] [place] [address] Ton Hernandez APRN-CNP [address] [place] [address] Social History Tobacco Use Types Packs/Day Years [...] on filedocumented in this encounter Care Teams Customer Support Professional Relationship Specialty Start Date End Date Ton Hernandez APRN-CNP [address] [place] [address] PCP - General Nurse Practitioner 05/12/22 documented as of this encounter
--- OUTSIDE RECORDS SUMMARY | 2024-08-18 10:02 | XMS_ITS | Encounter Summary ---
Author Organization [facility] Address [address] [place] [address] Care Team Providers Care Scientific Database Curator Name Role Phone David Ton [employer] WORKER Primary Care Provider + Reason for Visit * Reason Onset Date Comments Results 02/06/2023 Encounter Details Date Type Department Care Team ([facility] st Contact Info) Description 02/06/2023 Telephone [facility] [address] [place] [address] Samanta Huynh PA-C [address] [place] [address] Results Social History Tobacco Use Types Packs/Day Years Used Date Smoking Tobacco: Never Smokeless Tobacco: Never Alcohol Use Standard Drinks/Week Comments Not Currently 0 (1 standard drink = 0.6 oz pur e alcohol) PHQ-2 Answer Date Recorded PHQ2 TOTAL SCORE 0 02/01/2023 Sex and Gender Information Value Date Recorded Sex Assigned at Not on file Gender Identity Not on file Sexual Orientation Not on file documented as of this encounter Miscellaneous Notes * Telephone Encounter - Lolita Fierro RN - 02/06/2023 1:28 PM CDT Relayed provider's message to patient; voiced understanding. Pt is going to let it heal for a couple weeks and then see. She said since it's benign that she might not worry about it. * Telephone Encounter - Lolita Fierro RN - 02/06/2023 1:28 PM CDT ----- Message from Samanta Huynh PA-C sent at 02/06/2023 12:29 PM CDT ----- Pathology seborrheic keratosis from biopsy. Benign. If any remaining and wants removed needs appt. for CO2 laser to ablate. documented in this encounter Plan of Treatment Not on file documented as of this encounter Visit Diagnoses Not on filedocumented in this encounter Care Teams Scientific Database Curator Relationship Specialty Start Date End Date Ton Hernandez APRN-VIJI [address] [place] [phone] PCP - General Nurse Practitioner 05/12/22 documented as of this encounter
--- OUTSIDE RECORDS SUMMARY | 2024-08-18 10:02 | XMS_ITS | Encounter Summary ---
Author Organization [facility] Address [address] [place] [address] Care Team Providers Care Sand Molder Name Role Phone Ton Hernandez Primary Care Provider + Reason for Visit * Reason Onset Date Comments Med Question 02/21/2023 Encounter Details Date Type Department Care Team (Late st Contact Info) Description 02/21/2023 Telephone [facility] - Admitting [address] [place] [address] Ton Hernandez APRN-CNP [address] [place] [address] Med Question Social History Tobacco Use Types Packs/Day Years [...] encounter Miscellaneous Notes * Telephone Encounter - Sheila Garrido RN - 02/21/2023 4:29 PM CDT Images from the original note were not included. Ton Hernandez APRN-CNP [facility] Nurse Pool 2 minutes ago (4:26 PM) AB Paxil was Dced today and started zoloft 25 mg daily. * Telephone Encounter - Sheila Garrido RN - 02/21/2023 11:57 AM CDT Returned call. Sánchez is clarifying Paxil and sertraline. Discussed that records show Paxil was discontinued today and sertraline started. He voiced understanding. Nothing further needed. * Telephone Encounter - Dinora Wilder - 02/21/2023 11:45 AM CDT Sánchez from [facility] has called and left message on machine in regards to new script and script to be cancelled. Sánchez stated he needs clarification. # [phone]. documented in this encounter Plan of Treatment Not on file documented as of this encounter Visit Diagnoses Not on filedocumented in this encounter Care Teams Sand Molder Relationship Specialty Start Date End Date Ton Hernandez APRN-VIJI [address] [place] [phone] PCP - General Nurse Practitioner 05/12/22 documented as of this encounter
--- OUTSIDE RECORDS SUMMARY | 2024-08-18 10:02 | XMS_ITS | Encounter Summary ---
Author Organization [facility] Address [address] [place] [address] Care Team Providers Care Quality Director Name Role Phone Ton Hernandez Primary Care Provider + Encounter Details Date Type Department Care Team (Latest Contact Info) Description 04/24/2024 Travel Social History Tobacco Use Types Packs/Day Years [...] on filedocumented in this encounter Care Teams Quality Director Relationship Specialty Start Date End Date Ton Hernandez APRN-CNP [address] [place] [address] PCP - General Nurse Practitioner 05/12/22 documented as of this encounter
--- OUTSIDE RECORDS SUMMARY | 2024-08-18 10:02 | XMS_ITS | Encounter Summary ---
Author Organization [facility] Address [address] [place] [address] Care Team Providers Care Blood Bank Laboratory Technologist Name Role Phone Ton Hernandez Primary Care Provider + Reason for Visit * Reason Onset Date Comments Med Question 04/28/2024 Encounter Details Date Type Department Care Team ([facility] st Contact Info) Description 04/28/2024 Telephone [facility] [address] [place] [address] Ton Hernandez APRN-CNP [address] [place] [address] Med Question Social History Tobacco [...] as of this encounter Miscellaneous Notes * Addendum Note - Sajan Rubin RN - 04/30/2024 8:07 AM CDTAddended by: SAJAN RUBIN on: 04/30/2024 08:07 AM Modules accepted: Orders * Telephone Encounter - Sajan Rubin RN - 04/30/2024 8:06 AM CDT Prescription sent to [facility]. VM left letting patient know. * Telephone Encounter - Shena Ace - 04/30/2024 6:48 AM CDT Belem left a message on the machine at 5:54 pm on 04-29-2024 Per Belem she was notified yesterday that a medication had been sent to her pharmacy. Belem checked with [facility] in [place]. The staff told Belem they did not have a script on file for her. Belem is asking if the script can be sent to [facility] in [facility] on Sunday. Belem requested a return call back at [phone] once the script has been sent to [facility] in [place]. * Telephone Encounter - Sajan Rubin RN - 04/29/2024 4:48 PM CDT Attempted to call patient and no answer, NEIL left relaying that medication has been sent to pharmacy. * Telephone Encounter - Ton Hernandez APRN-CNP - 04/28/2024 5:30 PM CDT Sent prednisone taper to the pharmacy for her to start. * Telephone Encounter - Dinora Wilder - 04/28/2024 3:38 PM CDT 04/28/2024 3:39 PM PCP: YANET Langston Symptoms/Question: Pt has called today and stated that since last Sunday/Sunday she is unable to flex toes back,can't arch foot back, has tingling in buttock when sitting too long, numbness in foot at times, nerve/spine issues? , Chiropractor, Dr. Peoples did an exam on her today and is thinking possibly drop foot and thinks that she may benefit from Prednisone but wanted her to talk to Ton about the issue and pt also said that Ton could call her as well to discuss his findings from exam. Timing: When did it start? Sunday/Sunday last week Is this the first time having this problem? Yes Have you been seen for this issue before? No Does this problem come and go or is it constant? Pretty consistent *If it is intermittent, how long does it last, and how often does it occur? Quality: How would you describe the pain? (dull, sharp, achy, pressure, tightness, tingling): Tingling/numbness but not really any pain Pain Scale 0-10: No pain per pt Anything you are aware of that started your symptom? Pt stated that she has been out of town helping her daughter work on her house and has been standing in awkward positions on a ladder and also sitting in weird position on floor while painting. What seems to make it better? Stretching some What seems to make it worse? What treatments/medications have you tried? Pt's has adjusted her once but hasn't helped and she is leaving out of town to help daughter again I have [phone] (home) on file. Is this the best number to reach you? Yes Please verify preferred pharmacy and note if there is a change Since pt is out of town currently she will use [facility] in [place], [place] I will send all this information to the nursing staff and a member of our staff will return your call as soon as possible. Is there anything else I can help you with today? documented in this encounter Plan of Treatment Not on file documented as of this encounter Visit Diagnoses Not on filedocumented in this encounter Care Teams Blood Bank Laboratory Technologist Relationship Specialty Start Date End Date Ton Hernandez, JACK-VIJI [address] [place] [address] PCP - General Nurse Practitioner 05/12/22 documented as of this encounter
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
--- OUTSIDE RECORDS SUMMARY | 2024-08-18 10:02 | XMS_ITS | Encounter Summary ---
Author Organization [facility] Address [address] [place] [address] Care Team Providers Care Liaison Officer Name Role Phone HernandezTon roblero JACK-PILOT BOAT OPERATOR Primary Care Provider + Encounter Details Date Type Department Care Team (Latest Contact Info) Description 02/15/2023 11:00 AM CDT - 02/15/2023 11:59 PM CDT Hospital Encounter [facility] Laboratory [address] [place] [address] [place] [address] [place] [address] Discharge Disposition: Home or Self Care Social [...] Take 2,000 Units by mouth at bedtime LYSINE PO Take [...] for Diarrhea 11/20/2023 LORazepam (Ativan) 0.5 MG tabletIndications:Sleep disturbance,Anxiety Take 1 (one) tablet by mouth at bedtime 30 tablet 01/19/2023 06/18/2023 Multiple Vitamins-Minerals (ZINC PO) Take 1 tablet by mouth once daily 04/07/2024 PARoxetine (Paxil) 10 MG tabletIndications:Anxie ty Take 1 (one) tablet by mouth once daily 30 tablet 1 01/19/2023 02/21/2023 topiramate (Topamax) 50 MG tabletIndications:Sleep disturbance Take 1 (one) tablet by mouth at bedtime 90 tablet 1 01/19/2023 11/20/2023 valACYclovir (Valtrex) 500 MG tablet Take 1 (one) tablet by mouth 3 times daily 30 tablet 10/02/2022 04/07/2024 venlafaxine XR 24hr (Effexor XR) 37.5 MG capsuleIndications:Anxi ety Take 1 capsule every other day x 2 weeks. 14 capsule 01/19/2023 02/21/2023 documented as of this encounter Plan of Treatment Not on file documented as of this encounter Procedures Procedure Name Priority Date/Time Associated Diagnosis Comments HEMOGLOBIN A1C Routine 02/15/2023 11:26 AM CDT Routine general medical examination at a health care facility VITAMIN D 25-HYDROXY Routine 02/15/2023 11:26 AM CDT Routine general medical examination at a health care facility CBC W AUTO DIFFERENTIAL Routine 02/15/2023 11:26 AM CDT Routine general medical examination at a health care facility COMPREHENSIVE METABOLIC PANEL Routine 02/15/2023 11:26 AM CDT Routine general medical examination at a health care facility TSH Routine 02/15/2023 11:26 AM CDT Routine general medical examination at a [facility] care facility LIPID PROFILE Routine 02/15/2023 11:26 AM CDT Routine general medical examination at a health care facility documented in this encounter Results * HEMOGLOBIN A1C (02/15/2023 11:26 AM CDT) [facility] Hemoglobin A1c 5.2 0.0 - 5.7 % 02/15/2023 12:32 PM CDT [facility] ([facility]) Estimated Average Glucose 102.54 mg/dL 02/15/2023 12:32 PM CDT [facility] ([facility]) Blood BLOOD SPECIMEN / Unknown Lab Venipuncture / Unknown 02/15/2023 11:26 AM CDT 02/15/2023 11:26 AM CDT Narrative [facility] ([facility]) - 02/15/2023 12:32 PM CDT [employer] Suggested Interpretation: 5.7-6.4% Hemoglobin A1c = Prediabetes >6.5% Hemoglobin A1c = Consistent with Diabetes Fernando Pimentel MD LAB - CHEMISTRY ORD ERABLES Performing Organization Address City/[facility]/ZIP Co de Phone Number [facility] ([facility]) [address] [place] [phone] * VITAMIN D 25-HYDROXY (02/15/2023 11:26 AM CDT) [facility] Vitamin D, 25 Hydroxy 62 30 - 100 ng/mL 02/15/2023 12:29 PM CDT [facility] ([facility]) Blood BLOOD SPECIMEN / Unknown Lab Venipuncture / Unknown 02/15/2023 11:26 AM CDT 02/15/2023 11:26 AM CDT Fernando Pimentel MD LAB - CHEMISTRY ORD ERABLES [facility] ([facility]) [address] [place] [address] * LIPID PROFILE (02/15/2023 11:26 AM CDT) [facility] Cholesterol 168 110 - 200 mg/dL 02/15/2023 12:29 PM CDT [facility] ([facility]) Triglycerides 79 40 - 150 mg/dL 02/15/2023 12:29 PM CDT [facility] ([facility]) HDL 57 40 - 60 mg/dL 02/15/2023 12:29 PM CDT [facility] ([facility]) LDL Direct 71 0 - 99 mg/dL 02/15/2023 12:29 PM CDT [facility] ([facility]) VLDL 16 0 - 40 mg/dL 02/15/2023 12:29 PM CDT [facility] ([facility]) CHOL/HDL RATIO 2.93 0.00 - 4.98 02/15/2023 12:29 PM CDT [facility] ([facility]) Blood BLOOD SPECIMEN / Unknown Lab Venipuncture / Unknown 02/15/2023 11:26 AM CDT 02/15/2023 11:26 AM CDT Fernando Pimentel MD LAB - CHEMISTRY ORD ERABLES Performing Organization Address City/[facility]/ZIP Co de Phone Number [facility] ([facility]) [address] [place] [address] * TSH (02/15/2023 11:26 AM CDT) TSH 0.687 0.465 - 4.680 mIU/mL 02/15/2023 12:29 PM CDT [facility] ([facility]) Blood BLOOD SPECIMEN / Unknown Lab Venipuncture / Unknown 02/15/2023 11:26 AM CDT 02/15/2023 11:26 AM CDT Fernando Pimentel MD LAB - CHEMISTRY ORD ERABLES [facility] ([facility]) [address] [place] [address] * (ABNORMAL) CBC WITH DIFFERENTIAL (02/15/2023 11:26 AM CDT) WBC 5.2 4.0 - 10.0 K/uL 02/15/2023 12:23 PM CDT [facility] ([facility]) RBC 4.3 3.9 - 5.1 M/ul 02/15/2023 12:23 PM T [facility] ([facility]) Hemoglobin 13.3 12.0 - 15.0 g/dL 02/15/2023 12:23 PM T [facility] ([facility]) Hematocrit 39.0 37.0 - 45.0 % 02/15/2023 12:23 PM T [facility] ([facility]) MCV 89.4 82.0 - 101.0 fL 02/15/2023 12:23 PM T [facility] ([facility]) MCH 30.5 27.0 - 34.0 pg 02/15/2023 12:23 PM T [facility] ([facility]) MCHC 34.1 32.0 - 35.0 g/dL 02/15/2023 12:23 PM T [facility] ([facility]) RDW-CV 12.5 11.4 - 14.6 % 02/15/2023 12:23 PM T [facility] ([facility]) Platelet Count 263 120 - 410 K/uL 02/15/2023 12:23 PM T [facility] ([facility]) MPV 10.5 5.2 - 12.8 fL 02/15/2023 12:23 PM T [facility] ([facility]) Neutrophils % 58.9 25.0 - 78.0 % 02/15/2023 12:23 PM T [facility] ([facility]) Lymphocytes % 32.0 10.0 - 50.0 % 02/15/2023 12:23 PM T [facility] ([facility]) Monocytes % 5.2 0.0 - 11.0 % 02/15/2023 12:23 PM T [facility] ([facility]) Eosinophils % 3.1(H) 0.0 - 3.0 % 02/15/2023 12:23 PM T [facility] ([facility]) Basophils % 0.6 0.0 - 1.5 % 02/15/2023 12:23 PM T [facility] ([facility]) Neutrophil Absolute 3.1 2.0 - 6.9 K/uL 02/15/2023 12:23 PM T [facility] ([facility]) Lymphocyte Absolute 1.7 0.6 - 4.6 K/uL 02/15/2023 12:23 PM CDT [facility] ([facility]) Monocyte Absolute 0.3 0.0 - 0.9 K/uL 02/15/2023 12:23 PM CDT [facility] ([facility]) Eosinophil Absolute 0.2 0.0 - 0.7 K/uL 02/15/2023 12:23 PM CDT [facility] ([facility]) Basophil Absolute 0.0 0.0 - 0.2 K/uL 02/15/2023 12:23 PM CDT [facility] ([facility]) Immature Granulocytes % 0.2 0.0 - 0.5 % 02/15/2023 12:23 PM CDT [facility] ([facility]) Immature Granulocytes Absolute 0.01 0.00 - 0.03 K/UL 02/15/2023 12:23 PM CDT [facility] ([facility]) Blood BLOOD SPECIMEN / Unknown Lab Venipuncture / Unknown 02/15/2023 11:26 AM CDT 02/15/2023 11:26 AM CDT Fernando Pimentel MD LAB - HEMATOLOGY OR DERABLES Performing Organization Address [facility]/State/[facility] Co de Phone Number [facility] ([facility]) [address] [place] [address] * (ABNORMAL) COMPREHENSIVE METABOLIC PANEL (02/15/2023 11:26 AM CDT) Sodium 144 137 - 145 mmol/L 02/15/2023 12:29 PM CDT [facility] ([facility]) Potassium 4.7 3.6 - 5.0 mmol/L 02/15/2023 12:29 PM CDT [facility] ([facility]) Chloride 113(H) 98 - 107 mmol/L 02/15/2023 12:29 PM CDT [facility] ([facility]) Carbon Dioxide 24 21 - 31 mmol/L 02/15/2023 12:29 PM CDT [facility] ([facility]) Glucose 102(H) 65 - 100 mg/dL 02/15/2023 12:29 PM [facility] ([facility]) BUN 16 7 - 17 mg/dL 02/15/2023 12:29 PM [facility] ([facility]) Creatinine 0.80 0.50 - 1.04 mg/dL 02/15/2023 12:29 PM [facility] ([facility]) eGFR 75 >=60 ml/min/1.7 3*2 02/15/2023 12:29 PM [facility] ([facility]) Comment: Chronic kidney disease is defined as either the presence of kidney disease or a GFR of less than 60 ml/min/1.732 for 3 or more months and can be diagnosed without knowledge of its cause (NKF). Reference range in ??ml/min/1.732 ?? For healthy adults ?? > 60 ? Chronic Kidney Disease 15-60. ? GFR is not recommended for patients greater than 70 years. ?? Reference ranges not available for patients under 18 yrs. Test will not be performed. BUN/Creatinine Ratio 18.5 6.0 - 26.0 02/15/2023 12:29 PM [facility] ([facility]) Calcium 9.3 8.4 - 10.7 mg/dL 02/15/2023 12:29 PM [facility] ([facility]) Protein Total 7.3 6.3 - 8.2 g/dL 02/15/2023 12:29 PM [facility] ([facility]) Albumin 4.3 3.9 - 5.0 g/dL 02/15/2023 12:29 PM [facility] ([facility]) Albumin/Globulin Ratio 1.4 1.1 - 2.2 g/dL 02/15/2023 12:29 PM CDT [facility] ([facility]) Bilirubin Total 0.8 0.2 - 1.3 mg/dL 02/15/2023 12:29 PM CDT [facility] ([facility]) Alkaline Phosphatase 43 38 - 126 U/L 02/15/2023 12:29 PM CDT [facility] ([facility]) AST 26 8 - 39 U/L 02/15/2023 12:29 PM CDT [facility] ([facility]) ALT 22 9 - 52 U/L 02/15/2023 12:29 PM CDT [facility] ([facility]) Blood BLOOD SPECIMEN / Unknown Lab Venipuncture / Unknown 02/15/2023 11:26 AM CDT 02/15/2023 11:26 AM CDT Fernando Pimentel MD LAB - CHEMISTRY ORD ERABLES [facility] ([facility]) [address] [place] [address] documented in this encounter Visit Diagnoses Diagnosis Routine general medical examination at a health care facility- Primary documented in this encounter Care Teams Liaison Officer Relationship Specialty Start Date End Date Ton Hernandez APRN-CNP [address] [place] [address] PCP - General Nurse Practitioner 05/12/22 documented as of this encounter
--- OUTSIDE RECORDS SUMMARY | 2024-08-18 10:02 | XMS_ITS | Encounter Summary ---
Author Organization [facility] Address [address] [place] [address] Care Team Providers Care Business Objects Name Role Phone Ton Hernandez Primary Care Provider + Reason for Visit * Reason Comments Chronic Condition(s) Follow-up Check up med refills did not fill Trazadone Encounter Details Date Type Department Care Team ([facility] st Contact Info) Description 04/07/2024 3:00 PM CDT Office Visit [facility] Medicine [address] [place] [address] Ton Hernandez APRN-CNP [address] [place] [address] Physical exam, pre-employment (Primary Dx); Blood tests for routine general physical examination Social History Tobacco Use Types Packs/Day Years [...] Sign Reading Time Taken Comments Blood Pressure 110/84 04/07/2024 2:58 PM CDT Pulse 74 04/07/2024 2:58 PM CDT Temperature 36.3 ??C (97.4 ??F) 04/07/2024 2:58 PM CD T Respiratory Rate 16 04/07/2024 2:58 PM CDT Oxygen Saturation 98% 04/07/2024 2:58 PM CDT Inhaled Oxygen Concentration - - Weight 77.6 kg (171 lb) 04/07/2024 2:58 PM CDT Height 177.8 cm (5' 10 ) 04/07/2024 2:58 PM CDT Body Mass Index 24.54 04/07/2024 2:58 PM CDT documented in this encounter Progress Notes * Ton Hernandez APRN-CNP - 04/07/2024 3:30 PM CDT 04/07/2024 PCP: YANET Langston CC: Chief Complaint Patient presents with Chronic Condition(s) Follow-up Check up med refills did not fill Trazadone . HPI: Belem Coto is a 53 year old female presents today for pre-employment exam See scanned form. Outpatient Medications Prior to Visit Medication Sig Dispense Refill Ascorbic Acid 1000 MG Take 1 (one) tablet by mouth at bedtime Biotin 1000 MCG CHEW Take 1 capsule by mouth once daily Cholecalciferol 50 MCG (2000 UT) Take 2,000 Units by mouth at bedtime fish oil/omega-3 fatty acids (Promega;Cardi-Surrency 3) 1000 MG capsule Take 1 (one) capsule by mouth at bedtime ibuprofen (Motrin) 600 MG tablet every 6 hours as needed (Patient not taking: Reported on 04/07/2024) LORazepam (Ativan) 0.5 MG tablet Take 1 (one) tablet by mouth 2 times daily as needed for Anxiety 20 tablet 0 LYSINE PO Take 1 tablet by mouth once daily Multiple Vitamin (MULTIVITAMIN ADULT PO) Take 1 capsule by mouth once daily Multiple Vitamins-Minerals (ZINC PO) Take 1 tablet by mouth once daily (Patient not taking: Reported on 04/07/2024) simethicone (Gas-X) 125 MG capsule Take by mouth as needed tirzepatide (Mounjaro) 7.5 MG/0.5ML injection Inject 7.5 (seven and one-half) mg subcutaneously every 7 days traZODone (Desyrel) 50 MG tablet Take 0.5 (one-half) tablet by mouth at bedtime (Patient not taking: Reported on 04/07/2024) 30 tablet 1 valACYclovir (Valtrex) 500 MG tablet Take 1 (one) tablet by mouth 3 times daily (Patient taking differently: Take 1 (one) tablet by mouth 3 times daily as needed) 30 tablet 0 Zinc 50 MG tablet Take 1 (one) tablet by mouth once daily No facility-administered medications prior to visit. Depression: 04/07/2024 3:05 PM Patient Health Questionnaire Little Interest? Not at all Feeling Down? Not at all Score PHQ-2 0 Past Medical History: Diagnosis Date Anal fistula Anxiety disorder Rectovaginal fistula Past Surgical History: Procedure Laterality Date Appendectomy 1978 Colostomy 2019 ENDOMETRIAL ABLATION 2010 Hernia Repair Left 09/20/2023 INTEROENTERIC/ENTEROCOLIC FISTULA CLOSURE 2019 vaginal rectal fistula 4 flap procedures Lipectomy 2009 OTHER SURGERY 05/18/2022 colostomy reversal Social History Tobacco Use Smoking Status Never Smokeless Tobacco Never Social History Substance and Sexual Activity Drug Use Never No Known Allergies Family History Problem Relation Name Age of Onset None Known Mother None Known Father Review of Systems: Review of Systems Constitutional: Negative for chills and fever. HENT: Negative for congestion and sinus pain. Respiratory: Negative for cough and shortness of breath. Cardiovascular: Negative for chest pain, palpitations and leg swelling. Gastrointestinal: Negative for abdominal pain, constipation, diarrhea, nausea and vomiting. Genitourinary: Negative for dysuria. Musculoskeletal: Negative for back pain and joint pain. Skin: Negative for rash. Neurological: Negative for dizziness and headaches. Exam: BP 110/84 (BP Location: Right arm, Patient Position: Sitting, BP Cuff Size: Adult) Pulse 74 Temp 97.4 ??F (36.3 ??C) (Temporal) Resp 16 Ht 1.778 m (5' 10 ) Wt 77.6 kg (171 lb) SpO2 98% BMI 24.54 kg/m?? Physical Exam Constitutional: Appearance: Normal appearance. [...] is normal. Breath sounds: Normal breath sounds. Skin: General: Skin is warm and dry. Neurological: Mental Status: She is alert. Psychiatric: Mood and Affect: Mood normal. No results found for this visit on 04/07/24. Plan Impression: 1. Physical exam, pre-employment (Primary) See scanned form Other orders Treatment: Orders Placed This Encounter valACYclovir (Valtrex) 500 MG tablet Sig: Take 1 (one) tablet by mouth 3 times daily as needed Dispense: 30 tablet Refill: 1 There are no Patient Instructions on file for this visit. Medications Discontinued During This Encounter Medication Reason ibuprofen (Motrin) 600 MG tablet No Pharm No AVS Multiple Vitamins-Minerals (ZINC PO) No Pharm No AVS valACYclovir (Valtrex) 500 MG tablet No Pharm No AVS traZODone (Desyrel) 50 MG tablet Yes Pharm/AVS Current Outpatient Medications Medication Sig Dispense Refill Ascorbic Acid 1000 MG Take 1 (one) tablet by mouth at bedtime Biotin 1000 MCG CHEW Take 1 capsule by mouth once daily Cholecalciferol 50 MCG (2000 UT) Take 2,000 Units by mouth at bedtime fish oil/omega-3 fatty acids (Promega;Cardi-Surrency 3) 1000 MG capsule Take 1 (one) capsule by mouth at bedtime LORazepam (Ativan) 0.5 MG tablet Take 1 [...] mouth 3 times daily as needed 30 tablet1 Zinc 50 MG tablet Take 1 (one) tablet by mouth once daily No current facility-administered medications for this visit. Follow up : No follow-ups on file. YANET Langston documented in this encounter Plan of Treatment Not on file documented as of this encounter Procedures Procedure Name Priority Date/Time Associated Diagnosis Comments VITAMIN D 25-HYDROXY Routine 04/24/2024 9:17 AM CDT Blood tests for routine general physical examination documented in this encounter Results * TSH REFLEX FREE T4 (04/24/2024 9:17 AM CDT) TSH 0.886 0.465 - 4.680 mIU/mL 04/24/2024 10:54 AM CDT [facility] ([facility]) Blood BLOOD SPECIMEN / Unknown Lab Venipuncture / Unknown 04/24/2024 9:17 AM CDT 04/24/2024 9:17 AM CDT Ton [facility] - CHEMISTRY ORDERABLES Performing Organization Address [facility] Co de Phone Number [facility] ([facility]) [address] [place] [phone] * VITAMIN D 25-HYDROXY (04/24/2024 9:17 AM CDT) Vitamin D, 25 Hydroxy 56 30 - 100 ng/mL 04/24/2024 10:15 AM CDT [facility] ([facility]) Blood BLOOD SPECIMEN / Unknown Lab Venipuncture / Unknown 04/24/2024 9:17 AM CDT 04/24/2024 9:17 AM CDT Ton Hernandez [facility] - CHEMISTRY ORDERABLES Performing Organization Address [facility]/ZIP Co de Phone Number [facility] ([facility]) [address] [place] [phone] * (ABNORMAL) LIPID PROFILE (04/24/2024 9:17 AM CDT) Cholesterol 136 110 - 200 mg/dL 04/24/2024 10:14 AM CDT [facility] ([facility]) Triglycerides 82 40 - 150 mg/dL 04/24/2024 10:14 AM CDT [facility] ([facility]) HDL 63(H) 40 - 60 mg/dL 04/24/2024 10:14 AM CDT [facility] ([facility]) LDL Direct 51 0 - 99 mg/dL 04/24/2024 10:14 AM CDT [facility] ([facility]) VLDL 16 0 - 40 mg/dL 04/24/2024 10:14 AM CDT [facility] ([facility]) CHOL/HDL RATIO 2.16 0.00 - 4.98 04/24/2024 10:14 AM CDT [facility] ([facility]) Blood BLOOD SPECIMEN / Unknown Lab Venipuncture / Unknown 04/24/2024 9:17 AM CDT 04/24/2024 9:17 AM CDT Ton Hernandez APRN-JAILKEEPER LAB - CHEMISTRY ORDERABLES Performing Organization Address [facility] Co de Phone Number [facility] ([facility]) [address] [place] [address] * HEMOGLOBIN A1C (04/24/2024 9:17 AM CDT) Hemoglobin A1c 4.6 0.0 - 5.7 % 04/24/2024 11:49 AM CDT [facility] ([facility]) Estimated Average Glucose 85.32 mg/dL 04/24/2024 11:49 AM CDT [facility] ([facility]) Blood BLOOD SPECIMEN / Unknown Lab Venipuncture / Unknown 04/24/2024 9:17 AM CDT 04/24/2024 9:17 AM CDT Narrative [facility] ([facility]) - 04/24/2024 11:[address] [facility] [employer] Suggested Interpretation: 5.7-6.4% Hemoglobin A1c = Prediabetes >6.5% Hemoglobin A1c = Consistent with Diabetes Ton Hernandez APRN-JAILKEEPER LAB - CHEMISTRY ORDERABLES Performing Organization Address [facility]/ZIP Co de Phone Number [facility] ([facility]) [address] [place] [phone] * (ABNORMAL) COMPREHENSIVE METABOLIC PANEL (04/24/2024 9:17 AM [facility]) [facility] Sodium 142 137 - 145 mmol/L 04/24/2024 10:14 AM [facility] ([facility]) Potassium 4.5 3.6 - 5.0 mmol/L 04/24/2024 10:14 AM [facility] ([facility]) Chloride 108(H) 98 - 107 mmol/L 04/24/2024 10:14 AM [facility] ([facility]) Carbon Dioxide 29 21 - 31 mmol/L 04/24/2024 10:14 AM [facility] ([facility]) Glucose 94 65 - 100 mg/dL 04/24/2024 10:14 AM [facility] ([facility]) BUN 2(L) 7 - 17 mg/dL 04/24/2024 10:14 AM [facility] ([facility]) Creatinine 0.70 0.50 - 1.04 mg/dL 04/24/2024 10:14 AM [facility] ([facility]) eGFR 88 >=60 ml/min/1.7 3*2 04/24/2024 10:14 AM [facility] ([facility]) Comment: Chronic kidney disease is defined as [...] Test will not be performed. BUN/Creatinine Ratio 3.5(L) 6.0 - 26.0 04/24/2024 10:14 AM T [facility] ([facility]) Calcium 9.5 8.4 - 10.7 mg/dL 04/24/2024 10:14 AM T [facility] ([facility]) Protein Total 7.1 6.3 - 8.2 g/dL 04/24/2024 10:14 AM T [facility] ([facility]) Albumin 4.4 3.9 - 5.0 g/dL 04/24/2024 10:14 AM T [facility] ([facility]) Albumin/Globulin Ratio 1.6 1.1 - 2.2 g/dL 04/24/2024 10:14 AM T [facility] ([facility]) Bilirubin Total 0.7 0.2 - 1.3 mg/dL 04/24/2024 10:14 AM [facility] ([facility]) Alkaline Phosphatase 50 38 - 126 U/L 04/24/2024 10:14 AM T [facility] ([facility]) AST 29 8 - 39 U/L 04/24/2024 10:14 AM [facility] ([facility]) ALT 24 9 - 52 U/L 04/24/2024 10:14 AM [facility] ([facility]) Blood BLOOD SPECIMEN / Unknown Lab Venipuncture / Unknown 04/24/2024 9:17 AM CDT 04/24/2024 9:17 AM CDT Ton Hernandez RD SCIENTIST-JAILKEEPER LAB - CHEMISTRY ORDERABLES [facility] ([facility]) [address] [place] [address] * CBC WITH DIFFERENTIAL (04/24/2024 9:17 AM T) WBC 4.5 4.0 - 10.0 K/uL 04/24/2024 9:46 AM T [facility] ([facility]) RBC 4.5 3.9 - 5.1 M/ul 04/24/2024 9:46 AM [facility] ([facility]) Hemoglobin 14.3 12.0 - 15.0 g/dL 04/24/2024 9:46 AM [facility] ([facility]) Hematocrit 41.7 37.0 - 45.0 % 04/24/2024 9:46 AM [facility] ([facility]) MCV 92.3 82.0 - 101.0 fL 04/24/2024 9:46 AM [facility] ([facility]) MCH 31.6 27.0 - 34.0 pg 04/24/2024 9:46 AM [facility] ([facility]) MCHC 34.3 32.0 - 35.0 g/dL 04/24/2024 9:46 AM [facility] ([facility]) RDW-CV 12.7 11.4 - 14.6 % 04/24/2024 9:46 AM [facility] ([facility]) Platelet Count 267 120 - 410 K/uL 04/24/2024 9:46 AM [facility] ([facility]) MPV 10.2 5.2 - 12.8 fL 04/24/2024 9:46 AM [facility] ([facility]) Neutrophils % 65.4 25.0 - 78.0 % 04/24/2024 9:46 AM [facility] ([facility]) Lymphocytes % 24.2 10.0 - 50.0 % 04/24/2024 9:46 AM [facility] ([facility]) Monocytes % 7.5 0.0 - 11.0 % 04/24/2024 9:46 AM [facility] ([facility]) Eosinophils % 1.8 0.0 - 3.0 % 04/24/2024 9:46 AM [facility] ([facility]) Basophils % 1.1 0.0 - 1.5 % 04/24/2024 9:46 AM [facility] ([facility]) Neutrophil Absolute 3.0 2.0 - 6.9 K/uL 04/24/2024 9:46 AM [facility] ([facility]) Lymphocyte Absolute 1.1 0.6 - 4.6 K/uL 04/24/2024 9:46 AM CDT [facility] ([facility]) Monocyte Absolute 0.3 0.0 - 0.9 K/uL 04/24/2024 9:46 AM CDT [facility] ([facility]) Eosinophil Absolute 0.1 0.0 - 0.7 K/uL 04/24/2024 9:46 AM CDT [facility] ([facility]) Basophil Absolute 0.1 0.0 - 0.2 K/uL 04/24/2024 9:46 AM CDT [facility] ([facility]) Immature Granulocytes % 0.0 0.0 - 0.5 % 04/24/2024 9:46 AM CDT [facility] ([facility]) Immature Granulocytes Absolute 0.00 0.00 - 0.03 K/UL 04/24/2024 9:46 AM CDT [facility] ([facility]) Blood BLOOD SPECIMEN / Unknown Lab Venipuncture / Unknown 04/24/2024 9:17 AM CDT 04/24/2024 9:17 AM CDT Ton HOLT LAB - HEMATOLOGY ORDERABLES [facility] ([facility]) [address] [place] [phone] documented in this encounter Visit Diagnoses Diagnosis Physical exam, pre-employment- Primary Health examination of defined subpopulation Blood tests for routine general physical examination Laboratory examination ordered as part of a routine general medical examination documented in this encounter Care Teams Business Objects Relationship Specialty Start Date End Date Ton Hernandez APRN-CNP [address] [place] [address] PCP - General Nurse Practitioner 05/12/22 documented as of this encounter
--- OUTSIDE RECORDS SUMMARY | 2024-08-18 10:02 | XMS_ITS | Encounter Summary ---
Author Organization [facility] Address [address] [place] [address] Care Team Providers Care Information Systems Planner Name Role Phone David Ton SANTIAGO-DEMONSTRATOR SEWING TECHNIQUES Primary Care Provider + Reason for Visit * Reason Comments Procedure Punch biopsy Encounter Details Date Type Department Care Team (Latest Contact Info) Description 02/01/2023 8:30 AM CDT Procedure visit [facility] - Procedure Room [address] [place] [address] Samanta Huynh PA-C [address] [place] [address] Atypical pigmented skin lesion Social History Tobacco Use Types Packs/Day Years [...] Sign Reading Time Taken Comments Blood Pressure 104/68 02/01/2023 8:37 AM CDT Pulse 70 02/01/2023 8:37 AM CDT Temperature 36.6 ??C (97.8 ??F) 02/01/2023 8:37 AM CD T Respiratory Rate 18 02/01/2023 8:37 AM CDT Oxygen Saturation 98% 02/01/2023 8:37 AM CDT Inhaled Oxygen Concentration - - Weight 95.3 kg (210 lb) 02/01/2023 8:37 AM CDT Height 177.8 cm (5' 10 ) 02/01/2023 8:37 AM CDT Body Mass Index 30.13 02/01/2023 8:37 AM CDT documented in this encounter Patient Instructions * Patient Instructions* Samanta Huynh PA-C - 02/01/2023 9:40 AM CDT May shower and use soap and water. Recommend Aquaphor to be applied 2-3 times a day for first few days then slowly reduce. Keep wound covered. If any concerns or questions please call [facility] at [phone]. documented in this encounter Progress Notes * Samanta Huynh PA-C - 02/01/2023 9:40 AM CDT Subjective: Belem Coto is a 52 year old female who is referred to me for evaluation and treatment of a skin lesion of the left medial upper thigh. Papule has been there for years but now has a pigmented spot and is pruritic. Size has not changed. No hx. of skin cancer. Past Medical History: Diagnosis Date ??? Anal fistula ??? Anxiety disorder ??? Rectovaginal fistula Current Outpatient Medications Medication Sig Dispense Refill ??? Ascorbic Acid 1000 MG Take 1 (one) tablet by mouth at bedtime ??? Biotin 1000 MCG CHEW Take 1 capsule by mouth once daily ??? Cholecalciferol 50 MCG (2000 UT) Take 2,000 Units by mouth at bedtime ??? ibuprofen (Motrin) 600 MG tablet ??? Loperamide (Imodium) 2 MG tablet Take [...] 1 ??? simethicone (Gas-X) 125 MG capsule ??? topiramate (Topamax) 50 MG tablet Take [...] x 2 weeks. 14 capsule 0 No current facility-administered medications for this visit. No Known Allergies Review of Systems Pertinent items are noted in HPI Objective: Physical Exam Derm Physical Exam General Skin Exam: no rashes Lesion Location: Left medial upper thigh Color: Barrera with speck of dark brown Diameter: 0.25 cm. Border/Symmetry: symmetrical Inflammation: absent Adhesion: non adherent to adjacent tissues Punch Biopsy Procedure Note Pre-operative Diagnosis: Atypical Pigmented Lesion X 1 L81.9 Post-operative Diagnosis: same Locations Left Medial Thigh Anesthesia: Lidocaine 1% without epinephrine Procedure Details The risks (including bleeding and infection) and benefits of the procedure and written informed consent obtained. The lesion and surrounding area was given a sterile prep using alcohol. The skin was then stretchedperpendicular to the skin tension lines and the lesion obtained using the 3 mm punch. Aquaphor and a sterile dressing applied. The specimen was sent for pathologic examination. The patient tolerated the procedure well. Condition: Stable Complications: none. Assessment: Atypical Pigmented Lesion X 1 L81.9 Left Medial upper thigh Punch biopsy X 1 [id number] Plan: Punch Biopsy performed - will wait for pathology documented in this encounter Plan of Treatment Not on file documented as of this encounter Procedures Procedure Name Priority Date/Time Associated Diagnosis Comments PATHOLOGY SPECIMEN ([facility]) Routine 02/01/2023 11:53 AM CDT Atypical pigmented skin lesion documented in this encounter Results * PATHOLOGY SPECIMEN ([facility]) (02/01/2023 11:53 AM CDT) Pathology Result See Scanned Report 02/06/2023 8:39 AM CDT [facility] REF LAB NON INTERF Performed BY SEE SCANNED DOCUMENT 02/06/2023 8:39 AM CDT [facility] REF LAB NON INTERF Comment: [facility] [address] [place], [place] ??[address] Greenskeeper: Katty Andrew MD Pathology/Cytolo gy ENTIRE LOWER LIMB / Unknown Collection / Unknown 02/01/2023 11:53 AM CDT 02/01/2023 11:53 AM CDT Samanta Huynh PA-C LAB - PATHOLOGY/CYTO LOGY ORDERABLES [facility] REF LAB NON INTERF [address] [place] [address] documented in this encounter Visit Diagnoses Diagnosis Atypical pigmented skin lesion- Primary documented in this encounter Administered Medications Inactive Administered Medications - up to 3 most recent administrations Medication Order MAR Action Action Date Dose Rate Site lidocaine (Xylocaine) 1 % injection Infiltration, ONCE, 1 dose, On Ana 02/01/23 at 1200 $ Given 02/01/2023 1:00 PM CDT 0.5 mL documented in this encounter Care Teams Information Systems Planner Relationship Specialty Start Date End Date Ton Hernandez APRN-VIJI [address] [place] [address] PCP - General Nurse Practitioner 05/12/22 documented as of this encounter
--- OUTSIDE RECORDS SUMMARY | 2024-08-18 10:02 | XMS_ITS | Encounter Summary ---
Author Organization [facility] Address [address] [place] [address] Care Team Providers Care Rug Sample Beveler Name Role Phone Ton Hernandez Primary Care Provider + Reason for Visit * Reason Onset Date Comments MEDICATION REFILL 04/14/2024 Encounter Details Date Type Department Care Team (Late st Contact Info) Description 04/14/2024 Refill [facility] [address] [place] [address] Ton Hernandez APRN-CNP [address] [place] [address] MEDICATION REFILL Social History Tobacco Use Types Packs/Day Years [...] filedocumented in this encounter Care Teams Rug Sample Beveler Relationship Specialty Start Date End Date Ton Hernandez APRN-CNP [address] [place] [address] PCP - General Nurse Practitioner 05/12/22 documented as of this encounter
--- OUTSIDE RECORDS SUMMARY | 2024-08-18 10:02 | XMS_ITS | Encounter Summary ---
Author Organization [facility] Address [address] [place] [address] Care Team Providers Care Gut Puller Name Role Phone Ton Hernandez Primary Care Provider + Reason for Visit * Reason Onset Date Comments Results 11/23/2023 Encounter Details Date Type Department Care Team ([facility] st Contact Info) Description 11/23/2023 Telephone [facility] [address] [place] [address] Ton Hernandez APRN-CNP [address] [place] [address] Results Social History Tobacco Use [...] Telephone Encounter - Lolita Fierro RN - 11/23/2023 2:18 PM CDT LM on pts personal voicemail with providers message and encourage pt to call back with questions * Telephone Encounter - Lolita Fierro RN - 11/23/2023 2:18 PM CDT ----- Message from YANET Hadley sent at 11/23/2023 8:40 AM CDT ----- Please let Belem know the urine culture shows less than 10,0000 colony forming units. Please adviseto complete antibiotics as prescribed, and follow up if no resolution of symptoms. documented in this encounter Plan of Treatment Not on file documented as of this encounter Visit Diagnoses Not on filedocumented in this encounter Care Teams Gut Puller Relationship Specialty Start Date End Date Ton Hernandez APRN-CNP [address] [place] [phone] PCP - General Nurse Practitioner 05/12/22 documented as of this encounter
--- OUTSIDE RECORDS SUMMARY | 2024-08-18 10:02 | XMS_ITS | Encounter Summary ---
Author Organization [facility] Address [address] [place] [address] Care Team Providers Care Sealing And Canceling Machine Operator Name Role Phone Ton Hernandez Primary Care Provider + Encounter Details Date Type Department Care Team (Latest Contact Info) Description 11/20/2023 12:08 PM CDT - 11/20/2023 11:59 PM CDT [facility] [address] [place] [address] Ton Hernandez APRN-CNP [address] [place] [address] Discharge Disposition: Home or Self [...] mouth at bedtime fish oil/omega-3 fatty acids (Promega;Cardi-Parachute 3) 1000 MG capsule Take 1 (one) capsule by mouth at bedtime LYSINE PO Take 1 tablet by mouth once daily Multiple Vitamin (MULTIVITAMIN ADULT PO) Take 1 capsule by mouth once daily simethicone (Gas-X) 125 MG capsule Take by mouth as needed ibuprofen (Motrin) 600 MG tablet every 6 hours as needed 05/20/2022 04/07/2024 LORazepam (Ativan) 0.5 MG tabletIndications:Anxie ty,Sleep disturbance Take 1 (one) tablet by mouth 2 times daily as needed for Anxiety 20 tablet 06/18/2023 02/27/2024 Multiple Vitamins-Minerals (ZINC PO) Take 1 tablet by mouth once daily 04/07/2024 nitrofurantoin monohyd macro crystals (Macrobid) 100 MG capsuleIndications:Pelv ic pain,Dysuria Take 1 (one) capsule by mouth 2 times daily with morning and evening meal 10 capsule 11/20/2023 03/14/2024 valACYclovir (Valtrex) 500 MG tablet Take 1 (one) tablet by mouth 3 times daily 30 tablet 10/02/2022 04/07/2024 documented as of this encounter Plan of Treatment Not on file documented as of this encounter Procedures Procedure Name Priority Date/Time Associated Diagnosis Comments URINE CULT RST RFLXED Routine 11/20/2023 1:36 PM CDT Pelvic pain Dysuria CULTURE URINE Routine 11/20/2023 1:36 PM CDT Pelvic pain Dysuria documented in this encounter Results * URINE CULT RST RFLXED (11/20/2023 1:36 PM CDT) Result 1 Comment 11/22/2023 1:06 AM CDT [facility] ([facility]) Comment: Culture shows less than 10,000 colony forming units of bacteria per milliliter of urine. This colony count is not generally considered to be clinically significant. Urine URINE SPECIMEN OBTAINED BY CLEAN CATCH PROCEDURE / Unknown Collection / Unknown 11/20/2023 1:36 PM CDT 11/20/2023 1:37 PM CDT Narrative [facility] ([facility]) - 11/22/2023 1:06 AM CDT Performed at: ??01 - [address] ??[id number] Ironworker Wire Fence Erector: Puneet Trujillo PhD, Phone: ??[phone] Ton Hernandez APRN-TROUBLE OPERATOR LAB - MICROBIOLO GY ORDERABLES Performing Organization Address City/[facility]/ZIP Co de Phone Number [facility] ([facility]) [address] [place] [address] * CULTURE URINE (11/20/2023 1:36 PM CDT) Urine Culture Routine Final report 11/22/2023 1:06 AM CDT [facility] ([facility]) Urine URINE SPECIMEN OBTAINED BY CLEAN CATCH PROCEDURE / Unknown Collection / Unknown 11/20/2023 1:36 PM CDT 11/20/2023 1:37 PM CDT Narrative [facility] ([facility]) - 11/22/2023 1:06 AM CDT Performed at: ??01 - [address] ??[id number] Ironworker Wire Fence Erector: Puneet Trujillo PhD, Phone: ??[phone] Ton Hernandez APRN-TROUBLE OPERATOR LAB - MICROBIOLO GY ORDERABLES Performing Organization Address City/[facility] Co de Phone Number [facility] ([facility]) [address] [place] [address] documented in this encounter Visit Diagnoses Diagnosis Pelvic pain Unspecified symptom associated with female genital organs Dysuria documented in this encounter Care Teams Sealing And Canceling Machine Operator Relationship Specialty Start Date End Date Ton Hernandez APRN-CNP [address] [place] [phone] PCP - General Nurse Practitioner 05/12/22 documented as of this encounter
--- OUTSIDE RECORDS SUMMARY | 2024-08-18 10:02 | XMS_ITS | Encounter Summary ---
Author Organization [facility] Address [address] [place] [address] Care Team Providers Care Jewelry Bearing Maker Name Role Phone Ton Hernandez Primary Care Provider + Reason for Visit * Reason Onset Date Comments Results 06/26/2023 Encounter Details Date Type Department Care Team ([facility] st Contact Info) Description 06/26/2023 Telephone [facility] [address] [place] [address] Ton Hernandez APRN-CNP [address] [place] [address] Results Social History Tobacco Use [...] encounter Miscellaneous Notes * Telephone Encounter - Angela Santiago - 07/11/2023 4:11 PM CST See referral notes FICATION REP * Telephone Encounter - Cammy Keller MD - 06/29/2023 10:29 AM CST done FICATION REP * Telephone Encounter - Lolita Fierro RN - 06/29/2023 9:25 AM CST Relayed provider's message to patient; voiced understanding. For the hernia- Pt said for surgeon it might be easier if we referr to [facility] since that is where Dr. Shen is who is her colorectal surgeon. FICATION REP * Telephone Encounter - Cammy Keller MD - 06/29/2023 9:13 AM CST I did. No need for further imaging since fibroid uterus is known. FICATION REP * Telephone Encounter - Angela Santiago - 06/26/2023 3:40 PM CST US has been dropped off by patient and placed into 's folder FICATION REP * Telephone Encounter - Lolita Fierro RN - 06/26/2023 3:07 PM CST Relayed provider's message to patient; voiced understanding. Pt said for surgeon it might be easier if we referr to [facility] since that is where Dr. Shen is who is her colorectal surgeon. She is going to bring up an ultrasound that she previous had at the NUT BLANKER OPERATOR's office to see if that helps compare FICATION REP * Telephone Encounter - Lolita Fierro RN - 06/26/2023 3:07 PM CST ----- Message from Cammy Keller MD sent at 06/26/2023 11:14 AM VERIFICATION REP ----- Please call [facility] about her CT scan. The hernia was seen and right now contains only fat and no bowel which is good. We can coordinate a referral to general surgery for consultation on the hernia. The CT also showed fibroid uterus and recommended an ultrasound. Wanted to see if she was under the care of a ui architect and if she new about fibroids already or if this is new. FICATION REP documented in this encounter Plan of Treatment Not on file documented as of this encounter Visit Diagnoses Not on filedocumented in this encounter Care Teams Jewelry Bearing Maker Relationship Specialty Start Date End Date Ton Hernandez, JACK-FIRE AND SAFETY HELPER [address] [place] [phone] PCP - General Nurse Practitioner 05/12/22 documented as of this encounter
--- OUTSIDE RECORDS SUMMARY | 2024-08-18 10:02 | XMS_ITS | Encounter Summary ---
Author Organization [facility] Address [address] [place] [address] Care Team Providers Care Fire Patroller Name Role Phone Ton Hernandez Primary Care Provider + Encounter Details Date Type Department Care Team (Latest Contact Info) Description 04/24/2024 9:05 AM CDT - 04/24/2024 11:59 PM CDT Hospital Encounter [facility] [address] [place] [address] Ton Hernandez APRN-CNP [address] [place] [address] Discharge Disposition: Home or Self [...] mouth at bedtime fish oil/omega-3 fatty acids (Promega;Cardi-Orosi 3) 1000 MG capsule Take 1 (one) [...] Procedure Name Priority Date/Time Associated Diagnosis Comments TSH REFLEX FREE T4 Routine 04/24/2024 9: 17 AM CDT Blood tests for routine general physical examination HEMOGLOBIN A1C Routine 04/24/2024 9:17 AM CDT Blood tests for routine general physical examination CBC W AUTO DIFFERENTIAL Routine 04/24/2024 9:17 AM CDT Blood tests for routine general physical examination COMPREHENSIVE METABOLIC PANEL Routine 04/24/2024 9:17 AM CDT Blood tests for routine general physical examination LIPID PROFILE Routine 04/24/2024 9:17 AM CDT Blood tests for routine general physical examination documented in this encounter Results * TSH REFLEX FREE T4 (04/24/2024 9:17 AM CDT) TSH 0.886 0.465 - 4.680 mIU/mL 04/24/2024 10:54 AM CDT [facility] ([facility]) Blood BLOOD SPECIMEN / Unknown Lab Venipuncture / Unknown 04/24/2024 9:17 AM CDT 04/24/2024 9:17 AM CDT Ton Hernandez BOILER PLANT OPERATOR-IC DESIGNER [employer] LAB - CHEMISTRY ORDERABLES [facility] ([facility]) [address] [place] [address] * (ABNORMAL) LIPID PROFILE (04/24/2024 9:17 AM CDT) Cholesterol 136 110 - 200 mg/dL 04/24/2024 10:14 AM CDT [facility] ([facility]) Triglycerides 82 40 - 150 mg/dL 04/24/2024 10:14 AM CDT [facility] ([facility]) HDL 63(H) 40 - 60 mg/dL 04/24/2024 10:14 AM CDT [facility] ([facility]) LDL Direct 51 0 - 99 mg/dL 04/24/2024 10:14 AM CDT [facility] ([facility]) VLDL 16 0 - 40 mg/dL 04/24/2024 10:14 AM CDT [facility] ([facility]) CHOL/HDL RATIO 2.16 0.00 - 4.98 04/24/2024 10:14 AM CDT [facility] ([facility]) Blood BLOOD SPECIMEN / Unknown Lab Venipuncture / Unknown 04/24/2024 9:17 AM CDT 04/24/2024 9:17 AM CDT Ton Hernandez BOILER PLANT OPERATOR-IC DESIGNER [employer] LAB - CHEMISTRY ORDERABLES [facility] ([facility]) [address] [place] [address] * HEMOGLOBIN A1C (04/24/2024 9:17 AM CDT) Pathologist [facility] Hemoglobin A1c 4.6 0.0 - 5.7 % 04/24/2024 11:49 AM CDT [facility] ([facility]) Estimated Average Glucose 85.32 mg/dL 04/24/2024 11:49 AM CDT [facility] ([facility]) Blood BLOOD SPECIMEN / Unknown Lab Venipuncture / Unknown 04/24/2024 9:17 AM CDT 04/24/2024 9:17 AM CDT Narrative [facility] ([facility]) - 04/24/2024 11:49 AM CDT Citizen Of [place] Diabetes Association Suggested Interpretation: 5.7-6.4% Hemoglobin A1c = Prediabetes >6.5% Hemoglobin A1c = Consistent with Diabetes Ton Hernandez BOILER PLANT OPERATOR-IC DESIGNER [employer] LAB - CHEMISTRY ORDERABLES [facility] ([facility]) [address] [place] [address] * (ABNORMAL) COMPREHENSIVE METABOLIC PANEL (04/24/2024 9:17 AM CDT) [facility] Sodium 142 137 - 145 mmol/L 04/24/2024 10:[address] [facility] ([facility]) Potassium 4.5 3.6 - 5.0 mmol/L 04/24/2024 10:[address] [facility] ([facility]) Chloride 108(H) 98 - 107 mmol/L 04/24/2024 10:[address] [facility] ([facility]) Carbon Dioxide 29 21 - 31 mmol/L 04/24/2024 10:[address] [facility] ([facility]) Glucose 94 65 - 100 mg/dL 04/24/2024 10:[address] [facility] ([facility]) BUN 2(L) 7 - 17 mg/dL 04/24/2024 10:[address] [facility] ([facility]) Creatinine 0.70 0.50 - 1.04 mg/dL 04/24/2024 10:[address] [facility] ([facility]) eGFR 88 >=60 ml/min/1.7 3*2 04/24/2024 10:[address] [facility] ([facility]) Comment: Chronic kidney disease is defined as [...] 3.5(L) 6.0 - 26.0 04/24/2024 10:[address] [facility] ([facility]) Calcium 9.5 8.4 - 10.7 mg/dL 04/24/2024 10:[address] [facility] ([facility]) Protein Total 7.1 6.3 - 8.2 g/dL 04/24/2024 10:[address] [facility] ([facility]) Albumin 4.4 3.9 - 5.0 g/dL 04/24/2024 10:[address] [facility] ([facility]) Albumin/Globulin Ratio 1.6 1.1 - 2.2 g/dL 04/24/2024 10:[address] [facility] ([facility]) Bilirubin Total 0.7 0.2 - 1.3 mg/dL 04/24/2024 10:[address] [facility] ([facility]) Alkaline Phosphatase 50 38 - 126 U/L 04/24/2024 10:[address] [facility] ([facility]) AST 29 8 - 39 U/L 04/24/2024 10:[address] [facility] ([facility]) ALT 24 9 - 52 U/L 04/24/2024 10:[address] [facility] ([facility]) Blood BLOOD SPECIMEN / Unknown Lab Venipuncture / Unknown 04/24/2024 9:17 AM CDT 04/24/2024 9:17 AM CDT Ton Hernandez BOILER PLANT OPERATOR-IC DESIGNER [employer] LAB - CHEMISTRY ORDERABLES [facility] ([facility]) [address] [place] [address] * CBC WITH DIFFERENTIAL (04/24/2024 9:17 AM T) WBC 4.5 4.0 - 10.0 K/uL 04/24/2024 9:46 AM T [facility] ([facility]) RBC 4.5 3.9 - 5.1 M/ul 04/24/2024 9:46 AM T [facility] ([facility]) Hemoglobin 14.3 12.0 - 15.0 g/dL 04/24/2024 9:46 AM T [facility] ([facility]) Hematocrit 41.7 37.0 - 45.0 % 04/24/2024 9:46 AM T [facility] ([facility]) MCV 92.3 82.0 - 101.0 fL 04/24/2024 9:46 AM T [facility] ([facility]) MCH 31.6 27.0 - 34.0 pg 04/24/2024 9:46 AM T [facility] ([facility]) MCHC 34.3 32.0 - 35.0 g/dL 04/24/2024 9:46 AM T [facility] ([facility]) RDW-CV 12.7 11.4 - 14.6 % 04/24/2024 9:46 AM T [facility] ([facility]) Platelet Count 267 120 - 410 K/uL 04/24/2024 9:46 AM T [facility] ([facility]) MPV 10.2 5.2 - 12.8 fL 04/24/2024 9:46 AM T [facility] ([facility]) Neutrophils % 65.4 25.0 - 78.0 % 04/24/2024 9:46 AM T [facility] ([facility]) Lymphocytes % 24.2 10.0 - 50.0 % 04/24/2024 9:46 AM T [facility] ([facility]) Monocytes % 7.5 0.0 - 11.0 % 04/24/2024 9:46 AM T [facility] ([facility]) Eosinophils % 1.8 0.0 - 3.0 % 04/24/2024 9:46 AM T [facility] ([facility]) Basophils % 1.1 0.0 - 1.5 % 04/24/2024 9:46 AM T [facility] ([facility]) Neutrophil Absolute 3.0 2.0 - 6.9 K/uL 04/24/2024 9:46 AM T [facility] ([facility]) Lymphocyte Absolute 1.1 0.6 - 4.6 K/uL 04/24/2024 9:46 AM T [facility] ([facility]) Monocyte Absolute 0.3 0.0 - 0.9 K/uL 04/24/2024 9:46 AM T [facility] ([facility]) Eosinophil Absolute 0.1 0.0 - 0.7 K/uL 04/24/2024 9:46 AM T [facility] ([facility]) Basophil Absolute 0.1 0.0 - 0.2 K/uL 04/24/2024 9:46 AM T [facility] ([facility]) Immature Granulocytes % 0.0 0.0 - 0.5 % 04/24/2024 9:46 AM T [facility] ([facility]) Immature Granulocytes Absolute 0.00 0.00 - 0.03 K/UL 04/24/2024 9:[address] [facility] ([facility]) Blood BLOOD SPECIMEN / Unknown Lab Venipuncture / Unknown 04/24/2024 9:17 AM CDT 04/24/2024 9:17 AM T Ton [facility] - HEMATOLOGY ORDERABLES [facility] ([facility]) [address] [place] [phone] documented in this encounter Visit Diagnoses Diagnosis Blood tests for routine general physical examination Laboratory examination ordered as part of a routine general medical examination documented in this encounter Care Teams Fire Patroller Relationship Specialty Start Date End Date Ton Hernandez APRN-CNP [address] [place] [phone] PCP - General Nurse Practitioner 05/12/22 documented as of this encounter
--- OUTSIDE RECORDS SUMMARY | 2024-08-18 10:02 | XMS_ITS | Encounter Summary ---
Author Organization [facility] Address [address] [place] [address] Care Team Providers Care Pilot Plant Operator Name Role Phone Ton Hernandez Primary Care Provider + Reason for Visit * Reason Comments UTI Irritated vaginal ar ea and supra pubic pain x 1 week Encounter Details Date Type Department Care Team ([facility] st Contact Info) Description 11/20/2023 11:30 AM CDT Office Visit [facility] [address] [place] [address] Ton Hernandez APRN-CNP [address] [place] [address] Pelvic pain (Primary Dx); Dysuria; Vaginal irritation; Vaginal discharge Social History Tobacco Use Types Packs/Day Years [...] Sign Reading Time Taken Comments Blood Pressure 120/58 11/20/2023 11:34 AM CDT Pulse 83 11/20/2023 11:34 AM CDT Temperature 36.7 ??C (98 ??F) 11/20/2023 11:34 AM CDT Respiratory Rate 14 11/20/2023 11:34 AM CDT Oxygen Saturation 99% 11/20/2023 11:34 AM CDT Inhaled Oxygen Concentration - - Weight 83 kg (183 lb) 11/20/2023 11:34 AM CDT Height 177.8 cm (5' 10 ) 11/20/2023 11:34 AM CDT Body Mass Index 26.26 11/20/2023 11:34 AM CDT documented in this encounter Progress Notes * Ton Hernandez APRN-CNP - 11/20/2023 11:48 AM CDT 11/20/2023 PCP: YANET Langston CC: Chief Complaint Patient presents with ??? UTI Irritated vaginal area and supra pubic pain x 1 week . HPI: Belem Coto is a 52 year old female presents today with complaints of vaginal irritation, and supra pubic pain x 1 week. States she has had some episodes of incontinence despite her use of her eclipse appliance. Reports initially she experienced increased discharge which was white, nad itching. Used OTC monistat for vaginal yeast infection. States then the discharge turned a little greening. Also reports pelvic pressure dysuria, and frequency. Outpatient Medications Prior to Visit Medication Sig Dispense Refill ??? Ascorbic Acid 1000 MG Take 1 (one) tablet by mouth at bedtime ??? Biotin 1000 MCG CHEW Take 1 capsule by mouth once daily ??? Cholecalciferol 50 MCG (2000 UT) Take 2,000 Units by mouth at bedtime ??? fish oil/omega-3 fatty acids (Promega;Cardi-[place]ivers[place] 3) 1000 MG capsule Take 1 (one) capsule by mouth at bedtime ??? ibuprofen (Motrin) 600 MG tablet every 6 hours as needed ??? Loperamide (Imodium) 2 MG tablet Take 1 (one) tablet by mouth 4 times daily as needed for Diarrhea (Patient not taking: Reported on 06/18/2023) ??? LORazepam (Ativan) 0.5 MG tablet Take 1 (one) tablet by mouth 2 times daily as needed for Anxiety (Patient not taking: Reported on 11/20/2023) 20 tablet 0 ??? LYSINE PO Take 1 tablet by mouth once daily ??? metroNIDAZOLE (Flagyl) 250 MG tablet Take 1 (one) tablet by mouth 4 times daily (Patient not taking: Reported on 06/18/2023) 28 tablet 0 ??? Multiple Vitamin (MULTIVITAMIN ADULT PO) Take 1 capsule by mouth once daily ??? Multiple Vitamins-Minerals (ZINC PO) Take 1 tablet by mouth once daily ??? sertraline (Zoloft) 25 MG tablet Take 1 (one) tablet by mouth once daily (Patient not taking: Reported on 06/18/2023) 30 tablet 0 ??? simethicone (Gas-X) 125 MG capsule Take by mouth as needed ??? topiramate (Topamax) 50 MG tablet Take 1 (one) tablet by mouth at bedtime (Patient not taking: Reported on 06/18/2023) 90 tablet 1 ??? valACYclovir (Valtrex) 500 MG tablet Take 1 (one) tablet by mouth 3 times daily (Patient takingdifferently: Take 1 (one) tablet by mouth 3 times daily as needed) 30 tablet 0 No facility-administered medications prior to visit. Depression: 11/20/2023 11:45 AM Patient Health Questionnaire Little Interest? Not at all Feeling Down? Not at all Score PHQ-2 0 Past Medical History: Diagnosis Date ??? Anal fistula ??? Anxiety disorder ??? Rectovaginal fistula Past Surgical History: Procedure Laterality Date ??? Appendectomy 1977 ??? Colostomy 2019 ??? ENDOMETRIAL ABLATION 2010 ??? Hernia Repair Left 09/20/2023 ??? INTEROENTERIC/ENTEROCOLIC FISTULA CLOSURE 2019 vaginal rectal [...] chest pain, palpitations and leg swelling. Gastrointestinal: Positive for abdominal pain. Negative for constipation, diarrhea, nausea and vomiting. Pelvic pressure Genitourinary: Positive for dysuria, frequency and urgency. Negative for flank pain. Skin: Negative for rash. Neurological: Negative for dizziness and headaches. Exam: BP 120/58 (BP Location: Left arm, Patient Position: Sitting, BP Cuff Size: Adult) Pulse 83 Temp98 ??F (36.7 ??C) (Temporal) Resp 14 Ht 1.778 m (5' 10 ) Wt 83 kg (183 lb) SpO2 99% BMI 26.26 kg/m?? Physical Exam Constitutional: Appearance: Normal appearance. [...] No results found for this visit on 11/20/23. Plan Impression: No diagnosis found. 1. Pelvic pain (Primary) 2. Dysuria Increase fluid. May use AZO OTC. take antibiotic as prescribed. Follow up if no improvement. Will send urine for CX. - URINALYSIS DIPSTICK - POINT OF CARE (AMB) [facility] - CULTURE URINE; Future - nitrofurantoin monohyd macro crystals (Macrobid) 100 MG capsule; Take 1 (one) capsule by mouth 2 times daily with morning and evening meal 3. Vaginal irritation 4. Vaginal discharge Will treat vaginal yeast infection with fluconazole. Follow upif no improvement or resolution in symptoms. - fluconazole (Diflucan) 150 MG tablet; Take 1 (one) tablet by mouth once for 1 dose Take 1 tablet by mouth now. May repeat dose in 3 day. Treatment: No orders of the defined types were placed in this encounter. There are no Patient Instructions on file for this visit. Medications Discontinued During This Encounter Medication Reason ??? Loperamide (Imodium) 2 MG tablet No Pharm No AVS ??? metroNIDAZOLE (Flagyl) 250 MG tablet No Pharm No AVS ??? topiramate (Topamax) 50 MG tablet No Pharm No AVS ??? sertraline (Zoloft) 25 MG tablet No Pharm No AVS Current Outpatient Medications Medication Sig Dispense Refill ??? Ascorbic Acid 1000 MG Take 1 (one) tablet by mouth at bedtime ??? Biotin 1000 MCG CHEW Take 1 capsule by mouth once daily ??? Cholecalciferol 50 MCG (2000 UT) Take 2,000 Units by mouth at bedtime ??? fish oil/omega-3 fatty acids (Promega;Cardi-Riverside 3) 1000 MG capsule Take 1 (one) capsule by mouth at bedtime ??? ibuprofen (Motrin) 600 MG tablet every 6 hours as needed ??? LORazepam (Ativan) 0.5 MG tablet Take 1 (one) tablet by mouth 2 times daily as needed for Anxiety (Patient not taking: Reported on 11/20/2023) 20 tablet 0 ??? LYSINE PO Take 1 tablet by mouth once daily ??? Multiple Vitamin (MULTIVITAMIN ADULT PO) Take 1 capsule by mouth once daily ??? Multiple Vitamins-Minerals (ZINC PO) Take 1 tablet by mouth once daily ??? simethicone (Gas-X) 125 MG capsule Take by mouth as needed ??? valACYclovir (Valtrex) 500 MG tablet Take [...] Procedure Name Priority Date/Time Associated Diagnosis Comments URINALYSIS DIPSTICK - POINT OF CARE (AMB) [facility] Routine 11/20/2023 11:48 AM CDT Pelvic pain Dysuria documented in this encounter Results * CULTURE URINE (11/20/2023 1:36 PM CDT) Urine Culture Routine Final report 11/22/2023 1:06 AM CDT [facility] ([facility]) Urine URINE SPECIMEN OBTAINED BY CLEAN CATCH PROCEDURE / Unknown Collection / Unknown 11/20/2023 1:36 PM CDT 11/20/2023 1:37 PM CDT Narrative [facility] ([facility]) - 11/22/2023 1:06 AM CDT Performed at: ??01 - [facility] [place] [id number] [place], [place] [id number] Picking Machine Operator Helper: Puneet Trujillo PhD, Phone: ??[phone] Ton Hernandez APRN-VIJI LAB - MICROBIOLO GY ORDERABLES Performing Organization Address City/[facility] Co de Phone Number [facility] ([facility]) [address] [place] [address] * (ABNORMAL) URINALYSIS DIPSTICK - POINT OF CARE (AMB) [facility] (11/20/2023 11:48 AM CDT) Color UA Yellow Yellow, Perla [facility] Clarity UA Clear Clear, Hazy [facility] Specific [place] UA 1.005 1.000, 1.005, 1.010, 1.015, 1.020, 1.025 [facility] pH UA 5.0 5.0, 5.5, 6.0, 6.5, 7.0, 7.5, 8.0, 8.5, 9.0 [facility] Protein UA Negative Negative, Trace [facility] Glucose UA Negative Negative [facility] Ketone UA Negative Negative [facility] Bilirubin UA Negative Negative [facility] Blood UA Negative Negative [facility] Leukocyte Esterase UA Trace(A) Negative [facility] Nitrite UA Negative Negative [facility] Urobilinogen UA Negative 0.2 EU/dL, 1.0 EU/dL, Negative [facility] Urine URINE / Unknown 11/20/2023 1 1:48 AM CDT Ton [facility] - POINT OF C ARE ORDERABLES [facility] [address] [place] [address] documented in this encounter Visit Diagnoses Diagnosis Pelvic pain- Primary Unspecified symptom associated with female genital organs Dysuria Vaginal irritation Unspecified noninflammatory disorder of vagina Vaginal discharge Leukorrhea, not specified as infective documented in this encounter Care Teams Pilot Plant Operator Relationship Specialty Start Date End Date Ton Hernandez APRN-VIJI [address] [place] [address] PCP - General Nurse Practitioner 05/12/22 documented as of this encounter
--- OUTSIDE RECORDS SUMMARY | 2024-08-18 10:02 | XMS_ITS | Encounter Summary ---
Author Organization [facility] Address [address] [address] Care Team Providers Care Medical Assisting Instructor Name Role Phone Ton Locke Primary Care Provider + Reason for Visit * Radiology Services (Routine) - Closed Specialty Diagnoses / Procedures Referred By Cecy gage Referred To Contact Diagnoses Encounter for screening mammogram for malignant neoplasm of breast Procedures MAMMO BILAT SCREENING Ton Locke APRN-CNP [address] [place] [address] Referral ID Status Reason Start Date Expiration Date Visits Re quested Visits Authorized [id number] Closed 05/22/2023 05/21/2024 1 1 Encounter Details Date Type Department Care Team (Latest Contact Info) Description 05/22/2023 8:00 AM CDT - 05/22/2023 11:59 PM CDT Hospital Encounter [facility] - Mammography [address] [place] [address] Ton Locke APRN-CNP [address] [place] [address] Discharge Disposition: Home or Self [...] mouth at bedtime fish oil/omega-3 fatty acids (Promega;Cardi-[place] 3) 1000 MG capsule Take 1 (one) [...] mouth at bedtime 30 tablet 01/19/2023 06/18/2023 metroNIDAZOLE (Flagyl) 250 MG tablet Take 1 [...] Procedure Name Priority Date/Time Associated Diagnosis Comments MAMMO BILAT SCREENING Routine 05/22/2023 8:26 AM CDT Encounter for screening mammogram for malignant neoplasm of breast documented in this encounter Results * MAMMO BILAT SCREENING (05/22/2023 8:26 AM CDT) Anatomical Region Laterality Modality Breast Bilateral Mammography 05/22/2023 8:09 AM CDT Impressions 05/22/2023 7:48 PM CDT IMPRESSION: BI-RAD 1 NEGATIVE There is no mammographic evidence of malignancy. A 1 year screening mammogram is recommended. ?? A letter will be sent to the patient with these results. The patient will be entered into a reminder system with a target due date of 1 year for her next screening exam. Electronically signed by: Len Rodriguez M.D. ? ll/penrad:05/22/2023 19:48:14 ?? Echo Vascular Technologist(s): Zuly ??RT Aneudy(Tabitha)(M)(CT), [facility] letter sent: Normal Exam ?? Reading location: [facility] BI-RADS: 1 Negative Narrative 05/22/2023 7:48 PM CDT FROM: [place] [address] PROCEDURE FOR: Belem Coto [address] [place] [address] Home: PID#: [id number] [facility] Sec#: [id number] Exam#: [id number] : 1970 Age: 52 TO: TON LOCKE #[id number] - MAMMO BILAT SCREENING BILATERAL DIGITAL SCREENING MAMMOGRAM WITH MEDIOLATERAL OBLIQUE CRANIOCAUDAL: 05/22/2023 The study was acquired using digital technology and interpreted from soft copy . ?? CLINICAL: Routine screening. Patient has no complaints. No personal history of cancer. No family history of breast cancer. ?? COMPARISONS: Comparison is made to exams dated: ??05/16/2022 [facility], 09/05/2021, and 05/31/2020 [facility]. ?? BREAST TISSUE:There are scattered fibroglandular densities in both breasts. ?? FINDINGS: No significant masses, calcifications, or other findings are seen in either breast. ?? There has been no significant interval change. Procedure Note Len Rodriguez MD - 05/23/2023 FROM: [facility] [address] [place] [address] PROCEDURE FOR: Belem Coto [address] [place] [address] Home: PID#: [id number] Soc Sec#: [id number] Exam#: [id number] : 1970 Age: 52 TO: TON LOCKE #[id number] - MAMMO BILAT SCREENING BILATERAL DIGITAL SCREENING MAMMOGRAM WITH MEDIOLATERAL OBLIQUE CRANIOCAUDAL: 05/22/2023 The study was acquired using digital technology and interpreted from soft copy . CLINICAL: Routine screening. Patient has no complaints. No personal history of cancer. No family history of breast cancer. COMPARISONS: Comparison is made to exams dated: 05/16/2022 [facility], 09/05/2021, and 05/31/2020 [facility]. BREAST TISSUE:There are scattered fibroglandular densities in both breasts. FINDINGS: No significant masses, calcifications, or other findings are seen in either breast. There has been no significant interval change. IMPRESSION IMPRESSION: BI-RAD 1 NEGATIVE There is no mammographic evidence of malignancy. A 1 year screening mammogram is recommended. A letter will be sent to the patient with these results. The patient will be entered into a reminder system with a target due date of 1 year for her next screening exam. Electronically signed by: Len Rodriguez M.D. ll/lissette:05/22/2023 19:48:14 Echo Vascular Technologist(s): Zuly Amado RT(R)(M)(CT), [facility] letter sent: Normal Exam Reading location: [facility] BI-RADS: 1 Negative Ton Locke APRN-CHIEF DESIGN BRANCH MAMMO ORDERABLES documented in this encounter Visit Diagnoses Diagnosis Encounter for screening mammogram for malignant neoplasm of breast Other screening mammogram documented in this encounter Care Teams Medical Assisting Instructor Relationship Specialty Start Date End Date Ton Locke APRN-CNP [address] [place] [address] PCP - General Nurse Practitioner 05/12/22 documented as of this encounter
--- OUTSIDE RECORDS SUMMARY | 2024-08-18 10:02 | XMS_ITS | Encounter Summary ---
Author Organization [facility] Address [address] [place] [address] Care Team Providers Care Laundry Aid Name Role Phone Ton Hernandez Primary Care Provider + Reason for Visit * Reason Onset Date Comments MEDICATION REFILL 04/14/2024 Encounter Details Date Type Department Care Team (Late st Contact Info) Description 04/14/2024 Refill [facility] [address] [place] [address] Ton Hernandez APRN-CNP [address] [place] [address] MEDICATION REFILL Social History Tobacco [...] Telephone Encounter - Renea Adler RN - 04/15/2024 7:30 AM CDT Last chronic conditions appt: 04/07/24 Next chronic conditions appt: not scheduled Med last filled: 02/27/24 #20 0R documented in this encounter Plan of Treatment Not on file documented as of this encounter Visit Diagnoses Diagnosis Anxiety Anxiety state, unspecified Sleep disturbance Sleep disturbance, unspecified documented in this encounter Care Teams Laundry Aid Relationship Specialty Start Date End Date Ton Hernandez APRN-VIJI [address] [place] [address] PCP - General Nurse Practitioner 05/12/22 documented as of this encounter
--- OUTSIDE RECORDS SUMMARY | 2024-08-18 10:02 | XMS_ITS | Encounter Summary ---
Author Organization [facility] Address [address] [place] [address] Care Team Providers Care Rock Contractor Name Role Phone Ton Hernandez Primary Care Provider + Encounter Details Date Type Department Care Team (Latest Contact Info) Description 06/26/2023 Travel Social History Tobacco Use Types Packs/Day [...] on filedocumented in this encounter Care Teams Rock Contractor Relationship Specialty Start Date End Date Ton Hernandez APRN-CNP [address] [place] [address] PCP - General Nurse Practitioner 05/12/22 documented as of this encounter
--- OUTSIDE RECORDS SUMMARY | 2024-08-18 10:02 | XMS_ITS | Encounter Summary ---
Author Organization [facility] Address [address] [place] [address] Care Team Providers Care Global Ceo Name Role Phone Ton Hernandez APRN-[facility] Primary Care Provider + Reason for Referral * Radiology Services (Routine) - Closed Specialty Diagnoses / Procedures Referred By Contac t Referred To Contact Medical Imaging Diagnoses Hernia of abdominal wall Procedures CT ABDOMEN PELVIS WO CONTRAST Enrique Keller MD [address] [place] [phone] [facility] [facility] Radiology [address] [place] [phone] Referral ID Status Reason Start Date Expiration Date Visits Re quested Visits Authorized [id number] Closed 06/18/2023 06/17/2024 1 1 Reason for Visit * Reason Comments Aspiration Encounter Details Date Type Department Care Team ([facility] Contact Info) Description 06/18/2023 2:00 PM CDT Office Visit [facility]- Family Medicine [address] [place] [phone] Enrique Keller MD [address] [place] [phone] Choking, initial encounter (Primary Dx); Laryngitis, acute; Anxiety; Sleep disturbance; Hernia of abdominal wall Social History Tobacco Use Types Packs/Day Years [...] Sign Reading Time Taken Comments Blood Pressure 140/68 06/18/2023 1:59 PM CDT Pulse 87 06/18/2023 1:59 PM CDT Temperature 36.8 ??C (98.3 ??F) 06/18/2023 1:59 PM CD T Respiratory Rate 20 06/18/2023 1:59 PM CDT Oxygen Saturation 97% 06/18/2023 1:59 PM CDT Inhaled Oxygen Concentration - - Weight 94.8 kg (209 lb) 06/18/2023 1:59 PM CDT Height 177.8 cm (5' 10 ) 06/18/2023 1:59 PM CDT Body Mass Index 29.99 06/18/2023 1:59 PM CDT documented in this encounter Patient Instructions * Patient Instructions* Enrique Keller MD - 06/18/2023 2:39 PM CDT Look up EMDR bilateral music. Look on [employer] for a search of providers who can provide trauma therapy if your flashbacks continue. Voice rest as much as possible. You may try some honey to help soothe your throat. CT scan for hernia when approved by insurance. documented in this encounter Progress Notes * Enrique Keller MD - 06/18/2023 2:08 PM CDT Images from the original note were not included. 06/18/2023 PCP: Ton Hernandez APRN-[facility] Chief Complaint Patient presents with ??? Aspiration . HPI: Bethanie Coto is a 52 year old female presents today at the [facility] ER follow up. Last Bethanie was driving and she took 5 pills of her pancreatic enzyme. She choked on the pills and could not breath. She stopped her vehicle and performed abdominal thrust on herself and finally cleared her airway. Had a sensation of pills stuck in her throat so came to our ER. Imaging done did not show anything and she was discharged home since was not having stridor or wheezing. Next day she presented to [facility] ER because symptom persisted. They did not have ENT so they transferredher to [place] where ENT performed direct laryngoscopy. There was no retained pill but there was infl ammation of her vocal cords. She was given a medrol dose pack and pepcid and asked to rest her voice. She is here today because she still feels like she needs to cough and is concerned that she may have aspirated into her lungs. She is experiencing intermittent chest tightness but denies shortness ofbreath, wheezing, fever, chills, and malaise. The incident was traumatic for her and she has been anxious and easily tearful since. She originally had appointment to see Ton tomorrow because she believes she may have developed ahernia on left side of abdomen near her colostomy scar. She believes it started a couple weeks ago after getting constipated when she switched to a high protein diet. Outpatient Medications Prior to Visit Medication Sig Dispense Refill ??? Ascorbic Acid 1000 MG Take 1 (one) tablet by mouth at bedtime ??? Biotin 1000 MCG CHEW Take 1 capsule by mouth once daily ??? Cholecalciferol 50 MCG (2000 UT) Take 2,000 Units by mouth at bedtime ??? fish oil/omega-3 fatty acids (Promega;Cardi-[place] 3) 1000 MG capsule Take 1 (one) [...] bedtime (Patient not taking: Reported on 06/18/2023) 30 tablet 0 ??? LYSINE PO Take 1 tablet by mouth once daily (Patient not taking: Reported on 06/18/2023) ??? metroNIDAZOLE (Flagyl) 250 MG tablet Take [...] by mouth 3 times daily 30 tablet 0 No facility-administered medications prior to visit. Past Medical History: Diagnosis Date ??? Anal fistula ??? Anxiety disorder ??? Rectovaginal fistula Past Surgical History: Procedure Laterality Date ??? Appendectomy 1977 ??? Colostomy 2019 ??? ENDOMETRIAL ABLATION 2010 ??? INTEROENTERIC/ENTEROCOLIC FISTULA CLOSURE 2019 vaginal rectal fistula 4 flap procedures ??? Lipectomy 2008 ??? OTHER SURGERY 05/18/2022 colostomy reversal Family History Problem Relation Name Age of Onset ??? None Known Mother ??? None Known Father Social History Tobacco Use Smoking Status Never Smokeless Tobacco Never Social History Substance and Sexual Activity Drug Use Never No Known Allergies Review of Systems - per HPI Depression: 06/18/2023 1:59 PM Patient Health Questionnaire Little Interest? Not at all Feeling Down? Not at all Score PHQ-2 0 Exam: BP 140/68 (BP SITE: RIGHT ARM, BP POSITION: SITTING, BP CUFF SIZE: 11) Pulse 87 Temp 98.3 ??F (36.8 ??C) (Temporal) Resp 20 Ht 1.778 m (5' 10 ) Wt 94.8 kg (209 lb) SpO2 97% BMI 29.99 kg/m?? Physical Exam Vitals reviewed. Constitutional: General: She is not in acute distress. HENT: Mouth/Throat: Mouth: Mucous membranes are moist. Pharynx: Oropharynx is clear. No posterior oropharyngeal erythema. Abdominal: General: Abdomen is flat. Bowel sounds are normal. Palpations: Abdomen is soft. Tenderness: There is no abdominal tenderness. Hernia: A hernia is present. Hernia is present in the ventral area. Neurological: Mental Status: She is alert and oriented to person, place, and time. Psychiatric: Attention and Perception: Attention normal. Mood and Affect: Mood is anxious. Affect is tearful. Recent Labs Component Name 02/15/23 1126 05/12/22 1025 WBC 5.2 6.8 HEMOGLOBIN 13.3 14.3 HCT 39.0 41.6 PLTCOUNT 263 352 Recent Labs Component Name 02/15/23 1126 POTASSIUM 4.7 CHLORIDE 113* CO2 24 BUN 16 CREATININE 0.80 CALCIUM 9.3 ALBUMIN 4.3 PROTEIN 7.3 ALT 22 AST 26 GLUCOSE 102* Recent Labs Component Name 02/15/23 1126 05/12/22 1025 HGBA1C 5.2 5.3 EAG 102.54 105.41 Component Name 02/15/23 1126 TSH 0.687 Patient Active Problem List Diagnosis ??? Pelvic region somatic dysfunction ??? Anxiety ??? Rectovaginal fistula ??? Colostomy in place (CMS/HCC) ??? Vaginal fistula Added automatically from request for surgery [id number] ??? Colostomy in place (CMS/HCC) Added automatically from request for surgery [id number] ??? Anal fistula Added automatically from request for surgery [id number] ??? Rectovaginal fistula Added automatically from request for surgery [id number] ??? Atypical pigmented skin lesion Left medial thigh Assessment and Plan: ICD-10-CM 1. Choking, initial encounter T17.308A 2. Laryngitis, acute J04.0 3. Anxiety F41.9 LORazepam (Ativan) 0.5 MG tablet 4. Sleep disturbance G47.9 LORazepam (Ativan) 0.5 MG tablet 5. Hernia of abdominal wall K43.9 CT ABDOMEN PELVIS WO CONTRAST Patient Instructions Look up EMDR bilateral music. Look on [employer] for a search of providers who can provide trauma therapy if your flashbacks continue. Voice rest as much as possible. You may try some honey to help soothe your throat. CT scan for hernia when approved by insurance. Medications Discontinued During This Encounter Medication Reason ??? LORazepam (Ativan) 0.5 MG tablet No Pharm No AVS Current Outpatient Medications Medication Sig Dispense Refill ??? Ascorbic Acid 1000 MG Take 1 (one) tablet by mouth at bedtime ??? Biotin 1000 MCG CHEW Take 1 capsule by mouth once daily ??? Cholecalciferol 50 MCG (2000 UT) Take 2,000 Units by mouth at bedtime ??? fish oil/omega-3 fatty acids (Promega;Cardi-[place] 3) 1000 MG capsule Take 1 (one) [...] as needed for Anxiety 20 tablet 0 ??? LYSINE PO Take 1 tablet by mouth once daily (Patient not taking: Reported on 06/18/2023) ??? metroNIDAZOLE (Flagyl) 250 MG tablet Take [...] by mouth 3 times daily 30 tablet 0 No current facility-administered medications for this visit. Follow up : Return if symptoms worsen or fail to improve. Enrique Keller MD documented in this encounter Plan of Treatment Not on file documented as of this encounter Results * CT ABDOMEN PELVIS WO CONTRAST (06/26/2023 8:58 AM TRAIN BRAKER) Anatomical Region Laterality Modality Abdomen, Pelvis Computed Tomogra phy 06/26/2023 9:24 AM TRAIN BRAKER Impressions 06/26/2023 10:42 AM TRAIN BRAKER Large amount of stool throughout the colon, [...] AM T: ??06/26/2023 10:42 AM Report ID: [id number] Reading Location: ??[id number] Narrative 06/26/2023 10:42 [place] [address] RADIOLOGY REPORT Patient Name: BETHANIE COTO ? Date of Service:06/26/2023 ?? Date of :1970 ?? Age:52 ?? Sex:F Requesting PhysicianENRIQUE KELLER Examination:CT ABDOMEN PELVIS [...] Procedure Note Jeff Amador MD - 06/26/2023 [place] [address] RADIOLOGY REPORT Patient Name: BETHANIE COTO Date of Service:06/26/2023 Date of :1970 Age:52 Sex:F Requesting Fernie KELLER Examination:CT ABDOMEN PELVIS [...] Abelino Amador M.D. GLADIS: GLADIS Report ID: [id number] Reading Location: [id number] Enrique Keller MD CT ORDERABLES documented in this encounter Visit Diagnoses Diagnosis Choking, initial encounter- Primary Laryngitis, acute Acute laryngitis, without mention of obstruction Anxiety Anxiety state, unspecified Sleep disturbance Sleep disturbance, unspecified Hernia of abdominal wall Ventral hernia, unspecified, without mention of obstruction or gangrene Hernia of abdominal wall Ventral hernia, unspecified, without mention of obstruction or gangrene documented in this encounter Care Teams Global Ceo Relationship Specialty Start Date End Date Ton Hernandez APRN-[facility] [address] [place] [phone] PCP - General Nurse Practitioner 05/12/22 documented as of this encounter
--- OUTSIDE RECORDS SUMMARY | 2024-08-18 10:02 | XMS_ITS | Patient Health Summary ---
Author Organization [facility] Address [address] [place] [address] Care Team Providers Care Technical Engineer Name Role Phone Ton Hernandez APRN-[facility] Primary Care Provider + Note from [facility],non-owned Affiliates and Associated Physician Practices is amultiple site organization consisting of ambulatory clinics and hospital sitesin [place], [place], [place] and [place]. This disclosure is being madepursuant to the Care Everywhere program and may not contain all information available regarding this patient. Last updated 18.[facility] Allergies No known active allergies Medications * Be aware that medications may not be up to date on this document. Alwaysverify current medications with the patient. * Multiple Vitamin (MULTIVITAMIN ADULT PO) Take 1 capsule by mouth once daily * LYSINE PO Take 1 tablet by mouth once daily * Biotin 1000 MCG CHEW Take 1 capsule by mouth once daily * simethicone (Gas-X) 125 MG capsule Take by mouth as needed * Ascorbic Acid 1000 MG Take 1 (one) tablet by mouth at bedtime * Cholecalciferol 50 MCG (2000 UT) Take 2,000 Units by mouth at bedtime * fish oil/omega-3 fatty acids (Promega;Cardi-Redig 3) 1000 MG capsule Take 1 (one) capsule by mouth at bedtime * tirzepatide (Mounjaro) 7.5 MG/0.5ML injection Inject 7.5 (seven and one-half) mg subcutaneously every 7 days * Zinc 50 MG tablet Take 1 (one) tablet by mouth once daily * valACYclovir (Valtrex) 500 MG tablet(Started 04/07/2024) Take 1 (one) tablet by mouth 3 times daily as needed 1 refill by 04/07/2025 * LORazepam (Ativan) 0.5 MG tablet(Started 04/15/2024) Take 1 (one) tablet by mouth 2 times daily as needed for Anxiety * predniSONE (Deltasone) 10 MG tablet(Started 04/30/2024) Take 3 tabs daily x 3 days, then 2 tabs daily x 3 days, then 1 tabs daily x 3 days,then 1/2 tab daily x 3 days, then stop Active Problems Problem Noted Date Diagnosed Date Atypical pigmented skin lesion 02/01/2023 Pelvic region somatic dysfunction 12/03/2022 02/21/2023 Anxiety 11/20/2022 Rectovaginal fistula 05/13/[address] 05/13/2022 Vaginal fistula 03/16/[address] 03/16/2022 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 (FLUCELVAX QUADRIVALENT; 6MO+) (CCIIV4)(Given 05/14/2023, 05/16/2021) * INFLUENZA VACCINE, QUADR. (FLUZONE; FLULAVAL; FLUARIX; AFLURIA QUADRIVALENT; 6MO+), 0.5 ML (IIV4)(Given 05/20/2020) * INFLUENZA VACCINE, TRIV. (FLUZONE; FLULAVAL; FLUARIX; AFLURIA TRIVALENT; 6MO+), 0.5 ML (IIV3)(Given 05/29/2019) * TDAP, HISTORIC VACCINE(Given 07/22/2019) Social History Tobacco Use Types Packs/Day Years [...] on file Sexual Orientation Not on file Last Filed Vital Signs Vital Sign Reading [...] Mass Index 24.54 04/07/2024 2:58 PM CDT Procedures * MRI LUMBAR SPINE WO CONTRAST(Performed 06/19/2024) Performed for Bilateral foot-drop * TSH REFLEX FREE T4(Performed 04/24/2024) Performed for Blood tests for routine general physical examination * LIPID PROFILE(Performed 04/24/2024) Performed for Blood tests for routine general physical examination * HEMOGLOBIN A1C(Performed 04/24/2024) Performed for Blood tests for routine general physical examination * COMPREHENSIVE METABOLIC PANEL(Performed 04/24/2024) Performed for Blood tests for routine general physical examination * CBC W AUTO DIFFERENTIAL(Performed 04/24/2024) Performed for Blood tests for routine general physical examination * VITAMIN D 25-HYDROXY(Performed 04/24/2024) Performed for Blood tests for routine general physical examination * TB TEST T SPOT(Performed 03/17/2024) Performed for Screening examination for pulmonary tuberculosis * URINE CULT RST RFLXED(Performed 11/20/2023) Performed for Pelvic pain, Dysuria * CULTURE URINE(Performed 11/20/2023) Performed for Pelvic pain, Dysuria * URINALYSIS DIPSTICK - POINT OF CARE (AMB) [facility](Performed 11/20/2023) Performed for Pelvic pain, Dysuria * CT ABDOMEN PELVIS WO CONTRAST(Performed 06/26/2023) Performed for Hernia of abdominal wall * XR NECK SOFT TISSUE(Performed 06/14/2023) Performed for Aspiration into airway, initial encounter * XR CHEST 2VW(Performed 06/14/2023) Performed for Aspiration into airway, initial encounter * MAMMO BILAT SCREENING(Performed 05/22/2023) Performed for Encounter for screening mammogram for malignant neoplasm of breast * HM COLONOSCOPY(Performed 05/14/2023) * HEMOGLOBIN A1C(Performed 02/15/2023) Performed for Routine general medical examination at a health care facility * VITAMIN D 25-HYDROXY(Performed 02/15/2023) Performed for Routine general medical examination at a health care facility * LIPID PROFILE(Performed 02/15/2023) Performed for Routine general medical examination at a health care facility * TSH(Performed 02/15/2023) Performed for Routine general medical examination at a health care facility * CBC W AUTO DIFFERENTIAL(Performed 02/15/2023) Performed for Routine general medical examination at a health care facility * COMPREHENSIVE METABOLIC PANEL(Performed 02/15/2023) Performed for Routine general medical examination at a health care facility * PATHOLOGY SPECIMEN ([facility])(Performed 02/01/2023) Performed for Atypical pigmented skin lesion * PROLACTIN(Performed 10/02/2022) Performed for Perimenopausal * ESTROGEN TOTAL(Performed 10/02/2022) Performed for Perimenopausal * TSH(Performed 10/02/2022) Performed for Perimenopausal * FSH + LH PANEL(Performed 10/02/2022) Performed for Perimenopausal * TESTOSTERONE FREE (DIRECT)+TOTAL(Performed 10/02/2022) Performed for Perimenopausal * COMPREHENSIVE METABOLIC PANEL(Performed 05/16/2022) Performed for Laboratory examination ordered as part of a routine general medical examination * URINALYSIS REFLEX TO MICROSCOPIC NO CULTURE(Performed 05/16/2022) Performed for Laboratory examination ordered as part of a routine general medical examination * MAMMO BILAT SCREENING(Performed 05/16/2022) Performed for Screening mammogram, encounter for * TSH(Performed 05/12/2022) Performed for Screening for thyroid disorder * CBC W AUTO DIFFERENTIAL(Performed 05/12/2022) Performed for Laboratory examination ordered as part of a routine general medical examination * LIPID PROFILE(Performed 05/12/2022) Performed for Lipid screening * HEMOGLOBIN A1C(Performed 05/12/2022) Performed for Screening for diabetes mellitus * HIV-1 HIV-2 ANTIBODY + HIV P24 AG PANEL(Performed 05/12/2022) Performed for Screening for HIV without presence of risk factors * HEPATITIS C ANTIBODY(Performed 05/12/2022) Performed for Need for hepatitis C screening test Results * MRI Lumbar Spine Wo Contrast (06/19/2024 3:34 PM CDT) Anatomical Region Laterality Modality Spine Magnetic Resonan ce 06/20/2024 7:41 AM CDT Impressions 06/20/2024 7:47 AM CDT Multilevel lumbar degenerative disc and joint disease, as detailed level by level above. There is mild spinal canal stenosis at L3-L4 with mild narrowing of the lateral recesses, svzll-nsgbbrp-spet-left. Multilevel neural foraminal stenosis, up to moderate on the right at L5-S1. Right renal pelvocaliectasis. Mild prominence of the left renal pelvis. THIS IS AN ELECTRONICALLY VERIFIED FINAL REPORT 06/20/2024 7:47 AM - Electronically signed by ??Nestor Tenorio M.D. MZ: NEELAM D: ??06/20/2024 7:47 AM T: ??06/20/2024 7:47 AM Report ID: [id number] Reading Location: ??[id number] Narrative 06/20/2024 7:[place] [address] RADIOLOGY REPORT Patient Name: BETHANIE COTO ? [...] with mild narrowing of the lateral recesses, fcvez-ktvllvb-adae-left. L4-5: ?? Disc bulge. ??Aaqi-xu-fhvamdat bilateral facet arthropathy. ?? Mild right and jcum-on-vuxidwup left neural foraminal stenosis. ?? No significant [...] Procedure Note Nestor Tenorio MD - 06/20/2024 [place] [address] RADIOLOGY REPORT Patient Name: BETHANIE COTO Date [...] with mild narrowing of the lateral recesses, tmgcc-tdcmahe-ymhi-left. L4-5: Disc bulge. Mqba-fv-makrkhmw bilateral facet arthropathy. Mild right and udoj-zo-izwixfea left neural foraminal stenosis. No significant spinal [...] with mild narrowing of the lateral recesses, rjzhx-kxwrpjl-igob-left. Multilevel neural foraminal stenosis, up to moderate on the right at L5-S1. Right renal pelvocaliectasis. Mild prominence of the left renal pelvis. THIS IS AN ELECTRONICALLY VERIFIED FINAL REPORT 06/20/2024 7:47 AM - Electronically signed by Nestor Tenorio M.D. MZ: NEELAM Report ID: [id number] Reading Location: [place] [address] Provider Unknown MR ORDERABLES * TSH REFLEX FREE T4 (04/24/2024 9:17 AM CDT) TSH 0.886 0.465 - 4.680 mIU/mL 04/24/2024 10:54 AM CDT [facility] ([facility]) Blood BLOOD SPECIMEN / Unknown Lab Venipuncture / Unknown 04/24/2024 9:17 AM CDT 04/24/2024 9:17 AM CDT [facility] CHE[facility]Y ORDERABLES [facility] ([facility]) [address] [place] [address] * HEMOGLOBIN A1C (04/24/2024 9:17 AM CDT) Only the most recent of3 resultswithin the time period is included. Hemoglobin A1c 4.6 0.0 - 5.7 % 04/24/2024 11:49 AM CDT [facility] ([facility]) Estimated Average Glucose 85.32 mg/dL 04/24/2024 11:49 AM CDT [facility] ([facility]) Blood BLOOD SPECIMEN / Unknown Lab Venipuncture / Unknown 04/24/2024 9:17 AM CDT 04/24/2024 9:17 AM CDT Narrative [facility] ([facility]) - 04/24/2024 11:49 AM CDT [employer] Suggested Interpretation: 5.7-6.4% Hemoglobin A1c = Prediabetes >6.5% Hemoglobin A1c = Consistent with Diabetes Ton Hernandez [facility] CHEMISTRY ORDERABLES Performing Organization Address City/[facility]/ZIP Co de Phone Number [facility] ([facility]) [address] [place] [address] * VITAMIN D 25-HYDROXY (04/24/2024 9:17 AM CDT) Only the most recent of2 resultswithin the time period is included. Vitamin D, 25 Hydroxy 56 30 - 100 ng/mL 04/24/2024 10:15 AM CDT [facility] ([facility]) Blood BLOOD SPECIMEN / Unknown Lab Venipuncture / Unknown 04/24/2024 9:17 AM CDT 04/24/2024 9:17 AM CDT Ton Hernandez PRICING ACTUARY-[facility] - CHEMISTRY ORDERABLES [facility] ([facility]) [address] [place] [address] * CBC WITH DIFFERENTIAL (04/24/2024 9:17 AM CDT) Only the most recent of3 resultswithin the time period is included. WBC 4.5 4.0 - 10.0 K/uL 04/24/2024 9:46 AM T [facility] ([facility]) RBC 4.5 3.9 - 5.1 M/ul 04/24/2024 9:46 AM T [facility] ([facility]) Hemoglobin 14.3 12.0 - 15.0 g/dL 04/24/2024 9:46 AM T [facility] ([facility]) Hematocrit 41.7 37.0 - 45.0 % 04/24/2024 9:46 AM T [facility] ([facility]) MCV 92.3 82.0 - 101.0 fL 04/24/2024 9:46 AM T [facility] ([facility]) MCH 31.6 27.0 - 34.0 pg 04/24/2024 9:46 AM T [facility] ([facility]) MCHC 34.3 32.0 - 35.0 g/dL 04/24/2024 9:46 AM T [facility] ([facility]) RDW-CV 12.7 11.4 - 14.6 % 04/24/2024 9:46 AM T [facility] ([facility]) Platelet Count 267 120 - 410 K/uL 04/24/2024 9:46 AM T [facility] ([facility]) MPV 10.2 5.2 - 12.8 fL 04/24/2024 9:46 AM T [facility] ([facility]) Neutrophils % 65.4 25.0 - 78.0 % 04/24/2024 9:46 AM CDT [facility] ([facility]) Lymphocytes % 24.2 10.0 - 50.0 % 04/24/2024 9:46 AM T [facility] ([facility]) Monocytes % 7.5 0.0 - 11.0 % 04/24/2024 9:46 AM CDT [facility] ([facility]) Eosinophils % 1.8 0.0 - 3.0 % 04/24/2024 9:46 AM CDT [facility] ([facility]) Basophils % 1.1 0.0 - 1.5 % 04/24/2024 9:46 AM CDT [facility] ([facility]) Neutrophil Absolute 3.0 2.0 - 6.9 K/uL 04/24/2024 9:46 AM CDT [facility] ([facility]) Lymphocyte Absolute 1.1 0.6 - 4.6 K/uL 04/24/2024 9:46 AM CDT [facility] ([facility]) Monocyte Absolute 0.3 0.0 - 0.9 K/uL 04/24/2024 9:46 AM CDT [facility] ([facility]) Eosinophil Absolute 0.1 0.0 - 0.7 K/uL 04/24/2024 9:46 AM CDT [facility] ([facility]) Basophil Absolute 0.1 0.0 - 0.2 K/uL 04/24/2024 9:46 AM T [facility] ([facility]) Immature Granulocytes % 0.0 0.0 - 0.5 % 04/24/2024 9:46 AM CDT [facility] ([facility]) Immature Granulocytes Absolute 0.00 0.00 - 0.03 K/UL 04/24/2024 9:46 AM T [facility] ([facility]) Blood BLOOD SPECIMEN / Unknown Lab Venipuncture / Unknown 04/24/2024 9:17 AM CDT 04/24/2024 9:17 AM CDT Ton Hernandez PRICING ACT[facility]ARY[facility] - HEMATOLOGY ORDERABLES [facility] ([facility]) [address] [place] [address] * (ABNORMAL) COMPREHENSIVE METABOLIC PANEL (04/24/2024 9:17 AM [facility]) Only the most recent of3 resultswithin the time period is included. [facility] Signature Sodium 142 137 - 145 mmol/L 04/24/2024 10:14 AM [facility] ([facility]) Potassium 4.5 3.6 - 5.0 mmol/L 04/24/2024 10:14 AM [facility] ([facility]) Chloride 108(H) 98 - 107 mmol/L 04/24/2024 10:14 AM [facility] ([facility]) Carbon Dioxide 29 21 - 31 mmol/L 04/24/2024 10:14 AM [facility] ([facility]) Glucose 94 65 - 100 mg/dL 04/24/2024 10:14 AM [facility] ([facility]) BUN 2(L) 7 - 17 mg/dL 04/24/2024 10:14 AM [facility] ([facility]) Creatinine 0.70 0.50 - 1.04 mg/dL 04/24/2024 10:14 AM [facility] ([facility]) eGFR 88 >=60 ml/min/1.7 3*2 04/24/2024 10:14 AM [facility] ([facility]) Comment: Chronic kidney disease is [...] 6.0 - 26.0 04/24/2024 10:14 AM T [facility] ([facility]) Calcium 9.5 8.4 - 10.7 mg/dL 04/24/2024 10:14 AM T [facility] ([facility]) Protein Total 7.1 6.3 - 8.2 g/dL 04/24/2024 10:14 AM [facility] ([facility]) Albumin 4.4 3.9 - 5.0 g/dL 04/24/2024 10:14 AM [facility] ([facility]) Albumin/Globulin Ratio 1.6 1.1 - 2.2 g/dL 04/24/2024 10:14 AM [facility] ([facility]) Bilirubin Total 0.7 0.2 - 1.3 mg/dL 04/24/2024 10:14 AM [facility] ([facility]) Alkaline Phosphatase 50 38 - 126 U/L 04/24/2024 10:14 AM [facility] ([facility]) AST 29 8 - 39 U/L 04/24/2024 10:14 AM [facility] ([facility]) ALT 24 9 - 52 U/L 04/24/2024 10:14 AM [facility] ([facility]) Blood BLOOD SPECIMEN / Unknown Lab Venipuncture / Unknown 04/24/2024 9:17 AM CDT 04/24/2024 9:17 AM CDT Ton Hernandez PRICING ACT[facility]ARY[facility] - CHEMISTRY ORDERABLES [facility] ([facility]) [address] [place] [address] * (ABNORMAL) LIPID PROFILE (04/24/2024 9:17 AM CDT) Only the most recent of3 resultswithin the time period is included. [facility] Cholesterol 136 110 - 200 mg/dL 04/24/2024 10:14 AM CDT [facility] ([facility]) Triglycerides 82 40 - 150 mg/dL 04/24/2024 10:14 AM CDT [facility] ([facility]) HDL 63(H) 40 - 60 mg/dL 04/24/2024 10:14 AM CDT [facility] ([facility]) LDL Direct 51 0 - 99 mg/dL 04/24/2024 10:14 AM CDT [facility] ([facility]) VLDL 16 0 - 40 mg/dL 04/24/2024 10:14 AM CDT [facility] ([facility]) CHOL/HDL RATIO 2.16 0.00 - 4.98 04/24/2024 10:14 AM CDT [facility] ([facility]) Blood BLOOD SPECIMEN / Unknown Lab Venipuncture / Unknown 04/24/2024 9:17 AM CDT 04/24/2024 9:17 AM CDT Ton Hernandez APRN-[facility] - CHEMISTRY ORDERABLES [facility] ([facility]) [address] [place] [address] * TB TEST T SPOT (03/17/2024 10:10 AM CDT) [facility] TB Skin Test Result 0 0-10 mm Induration mm Induration 03/19/2024 12:34 PM CDT [facility] ([facility]) Blood BLOOD SPECIMEN / Unknown Collection / Unknown 03/17/2024 10:10 AM CDT 03/17/2024 10:10 AM CDT Ton Hernandez [facility] - CHEMISTRY ORDERABLES [facility] ([facility]) [address] [place] [address] * URINE CULT RST RFLXED (11/20/2023 1:36 PM CDT) Result 1 Comment 11/22/2023 1:06 AM CDT [facility] ([facility]) Comment: Culture shows less than 10,000 colony forming units of bacteria per milliliter of urine. This colony count is not generally considered to be clinically significant. Urine URINE SPECIMEN OBTAINED BY CLEAN CATCH PROCEDURE / Unknown Collection / Unknown 11/20/2023 1:36 PM CDT 11/20/2023 1:37 PM CDT Narrative [facility] ([facility]) - 11/22/2023 1:06 AM CDT Performed at: ??[address] - [address] ??[id number] Cable Weaver: Puneet Trujillo PhD, Phone: ??[phone] Ton Hernandez [facility] - MICROBIOLO GY ORDERABLES Performing Organization Address [facility] Co de Phone Number [facility] ([facility]) [address] [place] [address] * CULTURE URINE (11/20/2023 1:36 PM CDT) [facility] Urine Culture Routine Final report 11/22/2023 1:06 AM CDT [facility] ([facility]) Urine URINE SPECIMEN OBTAINED BY CLEAN CATCH PROCEDURE / Unknown Collection / Unknown 11/20/2023 1:36 PM CDT 11/20/2023 1:37 PM CDT [facility] ([facility]) - 11/22/2023 1:06 AM CDT Performed at: ??[address] - [address] ??[id number] Cable Weaver: Puneet Trujillo PhD, Phone: ??[phone] Ton [facility] - MICROBIOLO GY ORDERABLES Performing Organization Address City/[facility] Co de Phone Number [facility] ([facility]) [address] [place] [address] * (ABNORMAL) URINALYSIS DIPSTICK - POINT OF CARE (AMB) [facility] (11/20/2023 11:48 AM CDT) Pathologist [facility] Color UA Yellow Yellow, Perla [facility] Clarity UA Clear Clear, Hazy [facility] Specific [place] UA 1.005 1.000, 1.005, 1.010, 1.015, 1.020, 1.025 [facility] pH UA 5.0 5.0, 5.5, 6.0, 6.5, 7.0, 7.5, 8.0, 8.5, 9.0 [facility] Protein UA Negative Negative, Trace [facility] Glucose UA Negative Negative [facility] Ketone UA Negative Negative [facility] Bilirubin UA Negative Negative [facility] Blood UA Negative Negative [facility] Leukocyte Esterase UA Trace(A) Negative [facility] Nitrite UA Negative Negative [facility] Urobilinogen UA Negative 0.2 EU/dL, 1.0 EU/dL, Negative [facility] Urine URINE / Unknown 11/20/2023 1 1:48 AM CDT Ton Hernandez PRICING ACTUARY-[facility] - POINT OF C ARE ORDERABLES [facility] [address] [place] [address], [facility] * CT ABDOMEN PELVIS WO CONTRAST (06/26/2023 8:58 AM [employer] SPECIALIST) Anatomical Region Laterality Modality Abdomen, Pelvis Computed Tomogra phy 06/26/2023 9:24 AM [employer] SPECIALIST Impressions 06/26/2023 10:42 AM [employer] CONTENT SPECIALIST Large amount of stool throughout the colon, [...] 10:42 AM - Electronically signed by ??Abelino GRIFFITH: GLADIS D: ??06/26/2023 10:42 AM T: ??06/26/2023 10:42 AM Report ID: [id number] Reading Location: ??[id number] Narrative 06/26/2023 10:[address] [address] RADIOLOGY REPORT Patient Name: BETHANIE COTO ? Date of Service:06/26/2023 ?? Date of :1970 ?? Age:52 ?? Sex:F Requesting PhysicianGINGER JEAN Examination:CT ABDOMEN PELVIS WO CONTRAST EXAM DESCRIPTION: [...] Procedure Note Jeff Amador MD - 06/26/2023 [place] [address] RADIOLOGY REPORT Patient Name: BETHANIE COTO Date [...] Abelino Amador M.D. GLADIS: GLADIS Report ID: [id number] Reading Location: [place] [address] ORDERABLES * XR NECK SOFT TISSUE (06/14/2023 11:29 PM CDT) Anatomical Region Laterality Modality Head Radiographic Lolita ging 06/14/2023 11:5 8 PM CDT Impressions 06/15/2023 12:00 AM CDT ??No evidence of radiopaque foreign body. THIS IS AN ELECTRONICALLY VERIFIED FINAL REPORT 06/15/2023 12:00 AM - Electronically signed by ??Rohit Bond M.D., D.O. Rohit Bond M.D., D.O. MW: JULAINO D: ??06/15/2023 12:00 AM T: ??06/15/2023 12:00 AM Report ID: [id number] Reading Location: ??[id number] Narrative 06/15/2023 12:[place] [address] RADIOLOGY REPORT Patient Name: BETHANIE COTO ? Date of Service:06/14/2023 ?? Date of :1970 ?? Age:52 ?? Sex:F Requesting PhysicianBEAnimail VAREL Examination:XR NECK SOFT TISSUE EXAM DESCRIPTION: ?? XR NECK SOFT TISSUE REASON FOR STUDY: ?? Patient was taking medicine when she choked on one of the pills. Duration: 1 hour ago TECHNIQUE: ?? 2 ??radiographic image of the soft tissues of the neck. COMPARISON: ?? None. FINDINGS: SOFT TISSUES: ?? Epiglottis normal in thickness. No subglottic narrowing. Prevertebral soft tissues normal. BONY STRUCTURES: ?? There is a mild reverse lordosis of the cervical spine. ??There is disc space narrowing and small anterior osteophytes C5-6. ??No acute fracture is evident. LUNG APICES: ?? Normal. OTHER: ?? No radiopaque foreign body. No other significant finding. Procedure Note Rohit Bond, DO - 06/15/2023 [place] [id number] RADIOLOGY REPORT Patient Name: BETHANIE COTO Date of Service:06/14/2023 Date of :1970 Age:52 Sex:F Requesting PhysicianMULTICARE HEALTHAnimail VAREL Examination:XR NECK SOFT TISSUE EXAM DESCRIPTION: XR NECK SOFT TISSUE REASON FOR STUDY: Patient was taking medicine when she choked on one of the pills. Duration: 1 hour ago TECHNIQUE: 2 radiographic image of the soft tissues of the neck. COMPARISON: None. FINDINGS: SOFT TISSUES: Epiglottis normal in thickness. No subglottic narrowing. Prevertebral soft tissues normal. BONY STRUCTURES: There is a mild reverse lordosis of the cervical spine. There is disc space narrowing and small anterior osteophytes C5-6. No acute fracture is evident. LUNG APICES: Normal. OTHER: No radiopaque foreign body. No other significant finding. IMPRESSION No evidence of radiopaque foreign body. THIS IS AN ELECTRONICALLY VERIFIED FINAL REPORT 06/15/2023 12:00 AM - Electronically signed by Mireya Meredith M.D., M.D., D.O. MW: JULIANO Report ID: [id number] Reading Location: [id number] Piero Rojo PRICING ACTUARY-DRYWALL CARRIER DIAGNOSTIC IMAG ING ORDERABLES * XR CHEST 2VW (06/14/2023 11:29 PM CDT) Anatomical Region Laterality Modality Chest Radiographic Lolita ging 06/14/2023 11:5 7 PM CDT Impressions 06/14/2023 11:58 PM CDT Normal chest series. THIS IS AN ELECTRONICALLY VERIFIED FINAL REPORT 06/14/2023 11:58 PM - Electronically signed by ??Mireya Meredith M.D., M.D., D.O. MW: JULIANO D: ??06/14/2023 11:58 PM T: ??06/14/2023 11:58 PM Report ID: [id number] Reading Location: ??[id number] Narrative 06/14/2023 11:[place] [address] RADIOLOGY REPORT Patient Name: BETHANIE COTO ? Date of Service:06/14/2023 ?? Date of :1970 ?? Age:52 ?? Sex:F Requesting Alicia ROJO Examination:XR CHEST 2VW EXAM DESCRIPTION: XR CHEST 2VW REASON FOR STUDY: Patient was taking medicine when she choked on one of the pills. Duration: 1 hour ago TECHNIQUE: PA and lateral ??radiographic view(s) of the chest. COMPARISON: None. FINDINGS: LUNGS: ??No focal opacity, pleural effusion, or pneumothorax. ?? HEART/MEDIASTINUM: ??Cardiac silhouette normal in size. Mediastinal and hilar contours appear normal. LINES/TUBES: ??None. BONES: ??There are mild degenerative changes of the thoracic spine. Procedure Note Rohit Bond DO - 06/15/2023 [place] [address] RADIOLOGY REPORT Patient Name: BETHANIE COTO Date of Service:06/14/2023 Date of :1970 Age:52 Sex:F Requesting PhysicianPIERO ROJO Examination:XR CHEST 2VW EXAM DESCRIPTION: XR CHEST 2VW REASON FOR STUDY: Patient was taking medicine when she choked on one of the pills. Duration: 1 hour ago TECHNIQUE: PA and lateral radiographic view(s) of the chest. COMPARISON: None. FINDINGS: LUNGS: No focal opacity, pleural effusion, or pneumothorax. HEART/MEDIASTINUM: Cardiac silhouette normal in size. Mediastinal and hilar contours appear normal. LINES/TUBES: None. BONES: There are mild degenerative changes of the thoracic spine. IMPRESSION Normal chest series. THIS IS AN ELECTRONICALLY VERIFIED FINAL REPORT 06/14/2023 11:58 PM - Electronically signed by Rohit Bond M.D., D.O. Rohit Bond M.D., D.O. MW: JULIANO Report ID: [id number] Reading Location: [id number] Piero Rojo APRN-DRYWALL CARRIER DIAGNOSTIC IMAG ING ORDERABLES * MAMMO BILAT SCREENING (05/22/2023 8:26 AM CDT) Only the most recent of2 resultswithin the time period is included. Anatomical Region Laterality Modality Breast Bilateral Mammography [...] Electronically signed by: Len Rodriguez M.D. ? roya/lissette:05/22/2023 19:48:14 ?? Rn Procedure(s): Zuly ??RT Aneudy(R)(M)(CT), [facility] letter sent: Normal Exam ?? Reading location: [facility] BI-RADS: 1 Negative Narrative 05/22/2023 7:48 PM CDT FROM: [place] [address] PROCEDURE FOR: Bethanie Chica [address] [place] [address] Home: PID#: [id number] Soc Sec#: [id number] Exam#: [id number] : 1970 Age: 52 TO: TON HERNANDEZ #[id number] - MAMMO BILAT SCREENING BILATERAL DIGITAL SCREENING MAMMOGRAM WITH MEDIOLATERAL OBLIQUE CRANIOCAUDAL: 05/22/2023 The study was acquired using digital technology and interpreted from soft copy . ?? CLINICAL: Routine screening. Patient has no complaints. No personal history of cancer. No family history of breast cancer. ?? COMPARISONS: Comparison is made to exams dated: ??05/16/2022 [facility], 09/05/2021, and 05/31/2020 [facility]. ?? BREAST TISSUE:There are scattered fibroglandular densities in both breasts. ?? FINDINGS: No significant masses, calcifications, or other findings are seen in either breast. ?? There has been no significant interval change. Procedure Note Len Rodriguez MD - 05/23/2023 FROM: [place] [address] PROCEDURE FOR: Bethanie Chica [address] [place] [address] Home: PID#: [id number] Soc Sec#: [id number] Exam#: [id number] : 1970 Age: 52 TO: TON HERNANDEZ #[id number] - MAMMO BILAT SCREENING BILATERAL DIGITAL SCREENING MAMMOGRAM WITH MEDIOLATERAL OBLIQUE CRANIOCAUDAL: 05/22/2023 The study was acquired using digital technology and interpreted from soft copy . CLINICAL: Routine screening. Patient has no complaints. No personal history of cancer. No family history of breast cancer. COMPARISONS: Comparison is made to exams dated: 05/16/2022 [facility], 09/05/2021, and 05/31/2020 [facility]. BREAST TISSUE:There are scattered fibroglandular densities [...] next screening exam. Electronically signed by: Len pryor/lissette:05/22/2023 19:48:14 Rn Procedure(s): Zuly Amado, RT(R)(M)(CT), [facility] letter sent: Normal Exam Reading location: [facility] BI-RADS: 1 Negative Ton Hernandez PRICING ACTUARY-DRYWALL CARRIER MAMMO ORDERABLES * HM COLONOSCOPY (05/14/2023) Impressions Sheila Garrido, RN - 05/14/2023 Negative; repeat in 10 years [facility] - [address] Shen - see media Historical Provider MD NILSON AGUILAR E * TSH (02/15/2023 11:26 AM CDT) Only the most recent of3 resultswithin the time period is included. TSH 0.687 0.465 - 4.680 mIU/mL 02/15/2023 12:29 PM CDT [facility] ([facility]) Blood BLOOD SPECIMEN / Unknown Lab Venipuncture / Unknown 02/15/2023 11:26 AM CDT 02/15/2023 11:26 AM CDT Fernando Pimentel MD LAB - CHEMISTRY ORD ERABLES Performing Organization Address City/[facility]/ZIP Co de Phone Number [facility] ([facility]) [address] [place] [address] * PATHOLOGY SPECIMEN ([facility]) (02/01/2023 11:53 AM CDT) Pathology Result See Scanned Report 02/06/2023 8:39 AM CDT [facility] REF LAB NON INTERF Performed BY SEE SCANNED DOCUMENT 02/06/2023 8:39 AM CDT [facility] REF LAB NON INTERF Comment: [facility] [address] [facility] [place], [place] ??[address] Molding Press Operator: Katty Andrew MD Pathology/Cytolo gy ENTIRE LOWER LIMB / Unknown Collection / Unknown 02/01/2023 11:53 AM CDT 02/01/2023 11:53 AM CDT Samanta Huynh PA-C LAB - PATHOLOGY/CYTO LOGY ORDERABLES Performing Organization Address City/[facility]/ZIP Co de Phone Number [facility] REF LAB NON INTERF [address] [place] [address] * (ABNORMAL) TESTOSTERONE FREE (DIRECT)+TOTAL (10/02/2022 3:01 PM SOCIAL MEDIA CONTENT SPECIALIST) Testosterone <3(L) 4 - 50 ng/dL 10/10/2022 4:06 AM SOCIAL MEDIA CONTENT SPECIALIST [facility] ([facility]) Free Testosterone(Dire ct) 0.3 0.0 - 4.2 pg/mL 10/10/2022 4:06 AM SOCIAL MEDIA CONTENT SPECIALIST [facility] ([facility]) Blood BLOOD SPECIMEN / Unknown Lab Venipuncture / Unknown 10/02/2022 3:01 PM SOCIAL MEDIA CONTENT SPECIALIST 10/02/2022 3:01 PM SOCIAL MEDIA CONTENT SPECIALIST Narrative [facility] ([facility]) - 10/10/2022 4:06 AM SOCIAL MEDIA CONTENT SPECIALIST Performed at: ??01 - [facility] [address] ??[id number] Cable Weaver: Puneet Trujillo PhD, Phone: ??[phone] Performed at: ??02 - [facility] [address] ??[id number] Cable Weaver: Skyler Milligan MD, Phone: ??[phone] Ton David SANTIAGO-DRYWALL CARRIER LAB - CHEMISTRY ORDERABLES Performing Organization Address [facility] de Phone Number [facility] ([facility]) [address] [place] [address] * PROLACTIN (10/02/2022 3:01 PM SOCIAL MEDIA CONTENT SPECIALIST) Pathologist [facility] Prolactin 9.7 4.8 - 23.3 ng/mL 10/04/2022 8:10 AM SOCIAL MEDIA CONTENT SPECIALIST [facility] ([facility]) Blood BLOOD SPECIMEN / Unknown Lab Venipuncture / Unknown 10/02/2022 3:01 PM SOCIAL MEDIA CONTENT SPECIALIST 10/02/2022 3:01 PM SOCIAL MEDIA CONTENT SPECIALIST Narrative [facility] ([facility]) - 10/04/2022 8:10 AM SOCIAL MEDIA CONTENT SPECIALIST Performed at: ??01 - [facility] [place] [address] [place], [place] ??[id number] Cable Weaver: Puneet Trujillo PhD, Phone: ??[phone] Ton Hernandez APRN-DRYWALL CARRIER LAB - CHEMISTRY ORDERABLES Performing Organization Address [facility] de Phone Number [facility] ([facility]) [address] [place] [address] * ESTROGEN TOTAL (10/02/2022 3:01 PM SOCIAL MEDIA CONTENT SPECIALIST) Estrogen Total 129 pg/mL 10/06/2022 9:06 PM SOCIAL MEDIA CONTENT SPECIALIST [facility] ([facility]) Comment: ? Prepubertal ? < 40 ? Female Cycle: ? 1-10 Days ? 16 - 328 ? 11-20 Days ?34 - 501 ? 21-30 Days ?48 - 350 ? Post-Menopausal ?? 40 - 244 Blood BLOOD SPECIMEN / Unknown Lab Venipuncture / Unknown 10/02/2022 3:01 PM SOCIAL MEDIA CONTENT SPECIALIST 10/02/2022 3:01 PM SOCIAL MEDIA CONTENT SPECIALIST Narrative [facility] ([facility]) - 10/06/2022 9:06 PM SOCIAL MEDIA CONTENT SPECIALIST Performed at: ??01 - [facility] [address] ??[id number] Cable Weaver: Skyler Milligan MD, Phone: ??[phone] Ton Hernandez PRICING ACTUARY-DRYWALL CARRIER LAB - CHEMISTRY ORDERABLES [facility] ([facility]) [address] [place] [address] * FSH + LH PANEL (10/02/2022 3:01 PM SOCIAL MEDIA CONTENT SPECIALIST) LH 5.4 mIU/mL 10/04/2022 8:10 AM SOCIAL MEDIA CONTENT SPECIALIST [facility] ([facility]) Comment: ?Adult Female: ?Follicular phase ?2.4 - ??12.6 ?Ovulation phase ?14.0 - ??95.6 ?Luteal phase ?1.0 - ??11.4 ?Postmenopausal ?7.7 - ??58.5 FSH 7.8 mIU/mL 10/04/2022 8:10 AM SOCIAL MEDIA CONTENT SPECIALIST [facility] ([facility]) Comment: ?Adult Female: ?Follicular phase ?3.5 - ??12.5 ?Ovulation phase ? 4.7 - ??21.5 ?Luteal phase ?1.7 - ?? 7.7 ?Postmenopausal ? 25.8 - 134.8 Blood BLOOD SPECIMEN / Unknown Lab Venipuncture / Unknown 10/02/2022 3:01 PM SOCIAL MEDIA CONTENT SPECIALIST 10/02/2022 3:01 PM SOCIAL MEDIA CONTENT SPECIALIST Narrative [facility] ([facility]) - 10/04/2022 8:10 AM SOCIAL MEDIA CONTENT SPECIALIST Performed at: ??01 - [facility] [address] ??[id number] Cable Weaver: Puneet Trujillo PhD, Phone: ??[phone] Ton Hernandez PRICING ACTUARY-DRYWALL CARRIER LAB - CHEMISTRY ORDERABLES [facility] ([facility]) [address] [place] [address] * URINALYSIS REFLEX TO MICROSCOPIC NO CULTURE (05/16/2022 9:45 AM CDT) Color UA Yellow Yellow, Perla 05/16/2022 10:29 AM CDT [facility] ([facility]) Clarity UA Clear Clear, Hazy 05/16/2022 10:29 AM CDT [facility] ([facility]) Glucose UA Negative Negative, Color Interference 05/16/2022 10:29 AM CDT [facility] ([facility]) Ketone UA Negative Negative 05/16/2022 10:29 AM CDT [facility] ([facility]) Blood UA Negative Negative 05/16/2022 10:29 AM CDT [facility] ([facility]) Bilirubin UA Negative Negative 05/16/2022 10:29 AM CDT [facility] ([facility]) Protein UA Negative Negative 05/16/2022 10:29 AM CDT [facility] ([facility]) Leukocyte UA Negative Negative 05/16/2022 10:29 AM CDT [facility] ([facility]) Nitrite UA Negative Negative 05/16/2022 10:29 AM CDT [facility] ([facility]) Specific [place] UA 1.015 1.000, 1.005, 1.010, 1.015, 1.020, 1.025 05/16/2022 10:29 AM CDT [facility] ([facility]) pH UA 5.5 5.0, 5.5, 6.0, 6.5, 7.0, 7.5, 8.0, Color Interference 05/16/2022 10:29 AM CDT [facility] ([facility]) Urobilinogen UA 0.2 0.2, 1.0 10:29 AM T [facility] ([facility]) Urine URINE SPECIMEN OBTAINED BY CLEAN CATCH PROCEDURE / Unknown Collection / Unknown 05/16/2022 9:45 AM CDT 05/16/2022 9:45 AM CDT Ton Hernandez PRICING ACTUARY-DRYWALL CARRIER LAB - URINALYSIS ORDERABLES [facility] ([facility]) [address] [place] [address] * HIV-1 HIV-2 ANTIBODY + HIV P24 AG PANEL (05/12/2022 10:25 AM CDT) HIV-1/HIV-2 Rapid Antibody Negative Negative, Indeterminate 05/12/2022 11:10 AM CDT [facility] ([facility]) Rapid HIV Type 1 p24 Antigen Negative Negative, Indeterminate 05/12/2022 11:10 AM CDT [facility] ([facility]) Blood BLOOD SPECIMEN / Unknown Lab Venipuncture / Unknown 05/12/2022 10:25 AM CDT 05/12/2022 10:25 AM CDT Ton Hernandez PRICING ACTUARY-DRYWALL CARRIER LAB - CHEMISTRY ORDERABLES [facility] ([facility]) [address] [place] [address] * HEPATITIS C ANTIBODY (05/12/2022 10:25 AM CDT) Hepatitis C Antibody <0.1 0.0 - 0.9 s/co ratio 05/13/2022 11:07 AM CDT [facility] ([facility]) Comment: ?Negative: ? < 0.8 ? Indeterminate: 0.8 - 0.9 ?Positive: ? > 0.9 HCV antibody alone does not differentiate between previous resolved infection and active infection. The CDC and current clinical guidelines recommend that a positive HCV antibody result be followed up with an HCV RNA test to support the diagnosis of acute HCV infection. [facility] Hepatitis C Virus (HCV) RNA, Diagnosis, KODY (445195) and Hepatitis C Virus (HCV) Antibody with reflex to Quantitative Real-time PCR (900885). Blood BLOOD SPECIMEN / Unknown Lab Venipuncture / Unknown 05/12/2022 10:25 AM CDT 05/12/2022 10:25 AM CDT Narrative [facility] ([facility]) - 05/13/2022 11:07 AM CDT Performed at: ??01 - [facility] ??[id number] Cable Weaver: Puneet Trujillo PhD, Phone: ??[phone] Ton HOLT LAB - CHEMISTRY ORDERABLES [facility] ([facility]) [address] [place] [address] Care Teams Technical Engineer Relationship Specialty Start Date End Date Ton Hernandez APRN-CNP [address] [place] [phone] PCP - General Nurse Practitioner 05/12/22
--- OUTSIDE RECORDS SUMMARY | 2024-08-18 10:02 | XMS_ITS | Encounter Summary ---
Author Organization [facility] Address [address] [place] [address] Care Team Providers Care Clinical Trial Manager Name Role Phone Ton Hernandez Primary Care Provider + Encounter Details Date Type Department Care Team ([facility] st Contact Info) Description 03/05/2023 Orders Only [facility] [address] [place] [address] Ton Hernandez APRN-CNP [address] [place] [address] Anxiety ; Irritability; Stress Social History Tobacco Use Types Packs/Day Years [...] Diagnoses Diagnosis Anxiety- Primary Anxiety state, unspecified Irritability Stress Other psychological or physical stress, not elsewhere classified documented in this encounter Care Teams Clinical Trial Manager Relationship Specialty Start Date End Date Ton Hernandez APRN-CNP [address] [place] [address] PCP - General Nurse Practitioner 05/12/22 documented as of this encounter
--- OUTSIDE RECORDS SUMMARY | 2024-08-18 10:02 | XMS_ITS | Encounter Summary ---
Author Organization [facility] Address [address] [place] [address] Care Team Providers Care Cafeteria Server Name Role Phone Ton Hernandez YANET Primary Care Provider + Reason for Visit * Reason Comments Choking Encounter Details Date Type Department Care Team ([facility] st Contact Info) Description 06/14/2023 11:05 PM CDT - 06/15/2023 12:15 AM CDT Emergency [facility] - Emergency Department [address] [place] [address] Piero Rojo APRN-CEMENT OR CONCRETE FINISHING SUPERVISOR [address], [place] [id number] Aspiration into airway, initial encounter Discharge Disposition: Home or Self Care Social [...] Reading Time Taken Comments Blood Pressure 128/80 06/15/2023 12:00 AM CDT Pulse 81 06/15/2023 12:00 AM CDT Temperature 36.6 ??C (97.9 ??F) 06/14/2023 11:08 PM C DT Respiratory Rate 18 06/15/2023 12:00 AM CDT Oxygen Saturation 98% 06/15/2023 12:00 AM CDT Inhaled Oxygen Concentration - - Weight 90.7 kg (200 lb) 06/14/2023 11:08 PM CDT Height 177.8 cm (5' 10 ) 06/14/2023 11:08 PM CDT Body Mass Index 28.7 06/14/2023 11:08 PM CDT documented in this encounter Discharge Instructions * Discharge Instructions* Piero Rojo APRN-CNP - 06/15/2023 12:10 AM CDT Follow up with your primary care provider if your symptoms persist If you have acute shortness of breath return to the ER Discuss your difficulty with swallowing with Ton also documented in this encounter Medications at Time of Discharge Medication Sig Dispensed Refills Start Date End Date Ascorbic Acid 1000 MG Take 1 (one) tablet by mouth at bedtime Biotin 1000 MCG CHEW Take 1 capsule by mouth once daily Cholecalciferol 50 MCG (2000 UT) Take 2,000 Units by mouth at bedtime fish oil/omega-3 fatty acids (Promega;Cardi-Laurens 3) 1000 MG capsule Take 1 (one) [...] 10/02/2022 04/07/2024 documented as of this encounter ED Notes * Angella Castro RN - 06/14/2023 11:37 PM CDT Patient states that she still feels the same as before medication administration. * Piero Rojo APRN-CNP - 06/14/2023 11:12 PM CDT ED Events Date/Time Event User Comments 06/14/23 6809 First Provider Evaluation PIERO ROJO -- Bethanie Coto 192320 [facility] - EMERGENCY DEPARTMENT History Chief Complaint Patient presents with ??? Choking Bethanie Coto, a 52 year old female with a past medical history that includes-- Aniety--presents to the ER c/o choking on pills that she took while she was driving this evening. Pt feels like some of the pills got caught. Pills are described as smaller than the tip of her finger. She feels that something still feels caught when she talks. Pt is able to drink fluids without difficulty. Pt is tearful and coughing. PCP: YANET Langston Past Medical History: Diagnosis Date ??? Anal [...] Mother ??? None Known Father Social History Socioeconomic History ??? Marital status: Spouse name: Not on file ??? Number of children: Not on file ??? Years of education: Not on file ??? Highest education level: Not on file Occupational History ??? Not on file Tobacco Use ??? Smoking status: Never ??? Smokeless tobacco: Never Vaping Use ??? Vaping Use: Never used Substance and Sexual Activity ??? Alcohol use: Not Currently ??? Drug use: Never ??? Sexual activity: Not on file Other Topics Concern ??? Not on file Social History Narrative ??? Not on file Social Determinants of Health Financial Resource Strain: Not on file Food Insecurity: Not on file Transportation Needs: Not on file Stress: Not on file Housing Stability: Not on file Review of Systems Review of Systems Constitutional: Negative. HENT: Negative. Eyes: Negative. Respiratory: Positive for cough. Cardiovascular: Negative. Gastrointestinal: Negative. Genitourinary: Negative. Musculoskeletal: Negative. Skin: Negative. Neurological: Negative. Endo/Heme/Allergies: Negative. Psychiatric/Behavioral: Negative. Physical Exam BP 128/80 Pulse 81 Temp 97.9 ??F (36.6 ??C) Resp 18 Ht 1.778 m (5' 10 ) Wt 90.7 kg (200 lb) SpO2 98% BMI 28.70 kg/m?? Physical Exam Vitals and nursing note reviewed. Constitutional: General: She is not in acute distress. Appearance: She is well-developed. She is not diaphoretic. Comments: 52 y/o female HENT: Head: Normocephalic. Right Ear: External ear normal. Left Ear: External ear normal. Nose: Nose normal. Mouth/Throat: Mouth: Mucous membranes are moist. Eyes: Conjunctiva/sclera: Conjunctivae normal. Pupils: Pupils are equal, round, and reactive to light. Cardiovascular: Rate and Rhythm: Normal rate and regular rhythm. Pulses: Normal pulses. Pulmonary: Effort: Pulmonary effort is normal. Breath sounds: Normal breath sounds and air entry. No stridor, decreased air movement or transmitted upper airway sounds. No decreased breath sounds. Abdominal: General: Bowel sounds are normal. Palpations: Abdomen is soft. Musculoskeletal: Cervical back: Full passive range of motion without pain, normal range of motion and neck supple. No edema. Skin: General: Skin is warm and dry. Capillary Refill: Capillary refill takes less than 2 seconds. Neurological: General: No focal deficit present. Mental Status: She is alert and oriented to person, place, and time. Psychiatric: Behavior: Behavior normal. Thought Content: Thought content normal. Judgment: Judgment normal. Medications Current Outpatient Medications Medication Sig Dispense Refill ??? Ascorbic Acid 1000 MG Take 1 (one) tablet by mouth at bedtime ??? Biotin 1000 MCG CHEW Take 1 capsule by mouth once daily ??? Cholecalciferol 50 MCG (2000 UT) Take 2,000 Units by mouth at bedtime ??? fish oil/omega-3 fatty acids (Promega;Cardi-Laurens 3) 1000 MG capsule Take 1 (one) [...] by mouth 4 times daily 28 tablet 0 ??? Multiple Vitamin (MULTIVITAMIN ADULT PO) Take 1 capsule by mouth once daily ??? Multiple Vitamins-Minerals (ZINC PO) Take 1 tablet by mouth once daily ??? sertraline (Zoloft) 25 MG tablet Take 1 (one) tablet by mouth once daily 30 tablet 0 ??? simethicone (Gas-X) 125 MG capsule Take by mouth as needed ??? topiramate (Topamax) 50 MG tablet Take 1 (one) tablet by mouth at bedtime 90 tablet 1 ??? valACYclovir (Valtrex) 500 MG tablet Take 1 (one) tablet by mouth 3 times daily (Patient takingdifferently: Take 1 (one) tablet by mouth 3 times daily as needed) 30 tablet 0 Procedures Procedures Lab Interpretation Oxygen Saturation Interpretation Measurement frequency: Spot Check. Oxygen saturation interpretation is Normal. No results found for this visit on 06/14/23. XR NECK SOFT TISSUE Final Result [address] [address] RADIOLOGY REPORT Patient Name: EBTHANIE COTO Date of Service:06/14/2023 Date of :1970 Age:52 Sex:F Requesting PhysicianMULTICARE HEALTHPaperShare VARMEGAN Examination:XR NECK SOFT TISSUE EXAM DESCRIPTION: XR [...] M.D., M.D., D.O. MW: JULIANO Report ID: [id number] Reading Location: [id number] XR CHEST 2[place] [address] RADIOLOGY REPORT Patient Name: BETHANIE COTO Date of Service:06/14/2023 Date of :1970 Age:52 Sex:F Requesting PhysicianMULTICARE HEALTHPaperShare ALIA Examination:XR CHEST 2VW EXAM DESCRIPTION: XR CHEST [...] 06/14/2023 11:58 PM - Electronically signed by Goran Meredith M.D..OEmil Bond M.D., Mireya MW: JULIANO Report ID: [id number] Reading Location: [id number] Progress Notes ED Course Clinical Impressions as of 06/15/23 0013 Aspiration into airway, initial encounter Medical Decision Making DDX: aspiration, foreign body Xray negative Pt without hypoxemia or dyspnea Given pill size described obstruction very unlikely. Discussed with pt the option of transfer to a commercial baking teacher. Pt is very tearful again and states she was very scared and thought she was going to . She feels maybe her anxiety is making her symptoms worse. Given pill size and lack of stridor or acute respiratory distress will dc home to follow up with pcp Amount and/or Complexity of Data Reviewed Radiology: ordered. Risk OTC drugs. Prescription drug management. Orders Placed This Encounter ??? XR CHEST 2VW ??? XR NECK SOFT TISSUE ??? lidocaine viscous (Xylocaine) 2 % solution 10 mL ??? vaqufhwr-ikhbxexuy-elimxmtnoep (Maalox; Mylanta) suspension 15 mL ??? LORazepam (Ativan) tablet 1 mg Follow-up Information Ton Hernandez APRN-CNP In 3 days. Specialty: Nurse Practitioner Contact information: [address] [place] [phone] * Angella Castro RN - 06/14/2023 11:06 PM CDT Patient presents ambulatory to the ED c/o feeling like something is stuck in her throat. Patient states [place] 4 of her dietary supplement pills and started choking. Patient states that she felt like she could not breathe and started beating on her own chest. Patient states that she felt like they moved further down her throat and that now they are just st uck there. Patient is visible upset at this time. documented in this encounter Miscellaneous Notes * Clinical References AVS - Piero Rojo APRN-CNP - 06/15/2023 12:10 AM CDT [address] Treatment for Aspiration from Dysphagia Aspiration is when something enters your airway or lungs by accident. It may be food, liquid, or some other material. This can cause serious health problems, such as pneumonia. Aspiration can happen when you have trouble swallowing normally. This is called dysphagia. Types of treatment Your healthcare provider will try to treat the cause of your dysphagia. The type of treatment will depend on what caused your dysphagia. Treatment may include medicines, surgery, or referral to a speech or swallowing specialist (speech- language pathologist or CLINICAL SERVICES CONSULTANT). You may also need to manage the symptoms of dysphagia. This may include doing things, such as: ?? Changing your diet. You may need to make liquids thicker or not have liquids. ?? Changing your position while eating. For example, you may need to eat sitting upright, tilt yourhead back, or bend your head forward. ?? Not eating in bed ?? Eating smaller bites of food ?? Eating with someone watching you ?? Not talking while eating ?? Not being distracted during meals ?? Eating when you are most alert ?? Using tools, such as straws ?? Doing exercises to strengthen your lips and tongue ?? Using special swallowing methods As you recover, you may need to use fewer of these methods. Dysphagia after a stroke may improve greatly over time. You may still be at high risk for aspiration even with these methods. If this is the case, you may need to use a feeding tube for a period of time to prevent aspiration. What happens if you don?t get treated? A major complication of aspiration is harm to the lungs. When food, drink, or stomach contents maketheir way into your lungs, they can damage the tissues or cause severe infection. Aspiration also raises your risk for pneumonia. This is a lung infection that causes fluid to build up in the lungs. Pneumonia needs to be treated with antibiotics. In severe cases, it may cause . Other possible complications from dysphagia include: ?? Fluid loss (dehydration) ?? Malnutrition ?? Weight loss ?? Increased risk for other illness These problems can reduce your level of independence. They may also cause or lengthen a stay in thehospital. Preventing aspiration from dysphagia You can help prevent aspiration by: ?? Taking good care of your mouth and teeth ?? Getting dental treatment, such as dentures, when needed ?? Taking medicines as advised ?? Stopping smoking and heavy alcohol consumption ?? Using good posture when eating and drinking ?? Doing oral exercises as advised by the speech-language pathologist (CLINICAL SERVICES CONSULTANT) ?? Making changes to your diet as advised by the CLINICAL SERVICES CONSULTANT ?? Asking your healthcare provider for other advice to prevent aspiration in your case Last Reviewed Date: 2022 ?? [phone] [employer]. All rights reserved. This information is not intended as a substitute for professional medical care. Always follow your healthcare professional's instructions. documented in this encounter Plan of Treatment Not on file documented as of this encounter Procedures Procedure Name Priority Date/Time Associated Diagnosis Comments XR NECK SOFT TISSUE Routine 06/14/2023 1 1:29 PM CDT Aspiration into airway, initial encounter XR CHEST 2VW Routine 06/14/2023 11:29 PM CDT Aspiration into airway, initial encounter documented in this encounter Results * XR NECK SOFT TISSUE (06/14/2023 11:29 PM CDT) Anatomical Region Laterality Modality Head Radiographic Lolita ging 06/14/2023 11:5 8 PM CDT Impressions 06/15/2023 12:00 AM CDT ??No evidence of radiopaque foreign body. THIS IS AN ELECTRONICALLY VERIFIED FINAL REPORT 06/15/2023 12:00 AM - Electronically signed by ??Rohit Bond M.D., D.O. Rohit Bond M.D., D.O. MW: JULIANO D: ??06/15/2023 12:00 AM T: ??06/15/2023 12:00 AM Report ID: [id number] Reading Location: ??[id number] Narrative 06/15/2023 12:[place] [address] RADIOLOGY REPORT Patient Name: BETHANIE COTO ? Date of Service:06/14/2023 ?? Date of :1970 ?? Age:52 ?? Sex:F Requesting PhysicianBEPaperShare VAREL Examination:XR NECK SOFT TISSUE EXAM DESCRIPTION: [...] No other significant finding. Procedure Note Rohit Bond DO - 06/15/2023 [place] [address] RADIOLOGY REPORT Patient Name: BETHANIE COTO Date of Service:06/14/2023 Date of :1970 Age:52 Sex:F Requesting PhysicianCADOGAN VAREL Examination:XR NECK SOFT TISSUE EXAM DESCRIPTION: [...] 06/15/2023 12:00 AM - Electronically signed by Rohit Bond M.D., D.O. Rohit Bond M.D., D.O. MW: JULIANO Report ID: [id number] Reading Location: [id number] Piero Rojo APRN-VIJI DIAGNOSTIC IMAG ING ORDERABLES * XR CHEST 2VW (06/14/2023 11:29 PM CDT) Anatomical Region Laterality Modality Chest Radiographic Lolita ging 06/14/2023 11:5 7 PM CDT Impressions 06/14/2023 11:58 PM CDT Normal chest series. THIS IS AN ELECTRONICALLY VERIFIED FINAL REPORT 06/14/2023 11:58 PM - Electronically signed by ??Rohit Bond M.D., D.O. Rohit Bond M.D., D.O. MW: JULIANO D: ??06/14/2023 11:58 PM T: ??06/14/2023 11:58 PM Report ID: [id number] Reading Location: ??[id number] Narrative 06/14/2023 11:58 [place] [address] RADIOLOGY REPORT Patient Name: BETHANIE COTO ? [...] Procedure Note Rohit Bond DO - 06/15/2023 [place] [address] RADIOLOGY REPORT Patient Name: BETHANIE COTO Date [...] Bond M.D., D.O. MW: JULIANO Report ID: [id number] Reading Location: [id number] Piero Rojo SHEET METAL WORKER APPRENTICE-CEMENT OR CONCRETE FINISHING SUPERVISOR DIAGNOSTIC IMAG ING ORDERABLES documented in this encounter Visit Diagnoses Diagnosis Aspiration into airway, initial encounter documented in this encounter Administered Medications Inactive Administered Medications - up to 3 most recent administrations Medication Order MAR Action Action Date Dose Rate Site uozefiwr-wxrujfsce-lzzympvyceg (Maalox; Mylanta) suspension 15 mL 15 mL, Oral, Once, 1 dose, On Ana 06/14/23 at 2315, Shake well before using. $ Given 06/14/2023 11:18 PM CDT 15 mL lidocaine viscous (Xylocaine) 2 % solution 10 mL 10 mL, Mouth/Throat, ONCE, 1 dose, On Ana 06/14/23 at 2330, Maximum 8 doses per day. $ Given 06/14/2023 11:18 PM CDT 10 mL LORazepam (Ativan) tablet 1 mg 1 mg, Oral, ONCE, 1 dose, On 06/15/23 at 0030 $ Given 06/15/2023 12:14 AM CDT 1 mg documented in this encounter Active and Recently Administered Medications Times are shown in CDT. Scheduled Medication Order 06/13/2023 06/14/2023 06/15/2023 xgfgmjuz-ocqxnxkgd-gvefxx icone (Maalox; Mylanta) suspension 15 mL (COMPLETED) 15 mL, Oral, Once, 1 dose, On Ana 06/14/23 at 2315, Shake well before using. 2318 ($ Given - Provider: Angella Castro, CHRIS) lidocaine viscous (Xylocaine) 2 % solution 10 mL (COMPLETED) 10 mL, Mouth/Throat, ONCE, 1 dose, On Ana 06/14/23 at 2330, Maximum 8 doses per day. 2318 ($ Given - Provider: Angella Castro, CHRIS) LORazepam (Ativan) tablet 1 mg (COMPLETED) 1 mg, Oral, ONCE, 1 dose, On 06/15/23 at 0030 0014 ($ Given - Provider: Angella Castro, CHRIS) documented in this encounter Care Teams Cafeteria Server Relationship Specialty Start Date End Date Ton Hernandez APRN-CEMENT OR CONCRETE FINISHING SUPERVISOR [address] [place] [phone] PCP - General Nurse Practitioner 05/12/22 documented as of this encounter
--- OUTSIDE RECORDS SUMMARY | 2024-08-18 10:02 | XMS_ITS | Referral Summary ---
Author Organization [facility] Address [address] [place] [address] Care Team Providers Care Credit And Collections Representative Name Role Phone Locke, Ton [facility] Primary Care Provider + Source Comments [facility],non-owned Affiliates and Associated Physician Practices is amultiple site organization consisting of ambulatory clinics and hospital sitesin [place], [place] and [place]. This disclosure is being madepursuant to the Care Everywhere program and may not contain all information available regarding this patient. Last updated 18.[facility] Encounters Date Type Department Care Team Description 06/19/2024 2:19 PM CDT - 06/19/2024 11:59 PM CDT Hospital Encounter [facility] [address] [place] [address] Chelita Polanco [place] Discharge Disposition: Home or Self Care from Last 3 Months Allergies No known active allergies Medications * Be aware that medications may not be up to date on this document. Alwaysverify current medications with the patient. Medication Sig Dispensed Refills Start Date End Date Status Multiple Vitamin (MULTIVITAMIN ADULT PO) Take 1 capsule by mouth once daily Active LYSINE PO Take 1 tablet by mouth once daily Active Biotin 1000 MCG CHEW Take 1 capsule by mouth once daily Active simethicone (Gas-X) 125 MG capsule Take by mouth as needed Active Ascorbic Acid 1000 MG Take 1 (one) tablet by mouth at bedtime Active Cholecalciferol 50 MCG (2000 UT) Take 2,000 Units by mouth at bedtime Active fish oil/omega-3 fatty acids (Promega;Cardi-Ome ga 3) 1000 MG capsule Take 1 (one) capsule by mouth at bedtime Active tirzepatide (Mounjaro) 7.5 MG/0.5ML injection Inject 7.5 (seven and one-half) mg subcutaneously every 7 days Active Zinc 50 MG tablet Take 1 (one) tablet by mouth once daily Active valACYclovir (Valtrex) 500 MG tablet Take 1 (one) tablet by mouth 3 times daily as needed 30 tablet 1 04/07/2024 Active LORazepam (Ativan) 0.5 MG tabletIndications: Anxiety,Sleep disturbance Take 1 (one) tablet by mouth 2 times daily as needed for Anxiety 20 tablet 04/15/2024 Active predniSONE (Deltasone) 10 MG tablet Take 3 tabs daily x 3 days, then 2 tabs daily x 3 days, then 1 tabs daily x 3 days,then 1/2 tab daily x 3 days, then stop 32 tablet 04/30/2024 Active Active Problems Problem Noted Date Diagnosed Date Atypical pigmented skin lesion 02/01/2023 Overview (02/01/2023): Left medial thigh Pelvic region somatic dysfunction 12/03/2022 02/21/2023 Anxiety 11/20/2022 Rectovaginal fistula 05/13/[address] 05/13/2022 Vaginal fistula 03/16/2022 Overview (06/07/2022): Added automatically from request for surgery [id number] Colostomy in place 03/16/2022 Overview (06/07/2022): Added automatically from request for surgery [id number] Anal fistula 02/08/2021 Overview (06/07/2022): Added automatically from request for surgery [id number] Rectovaginal fistula 08/31/2020 Overview (06/07/2022): Added automatically from request for surgery [id number] Immunizations Name Administration Dates Next Due Blinkiverse 12+YR 30MCG/0.3mL 05/14/2023 Covid Pfizer primary monoval ent 12+ yr 0.3mL Purple cap 06/02/2021,11/08/2020,10/18/2020 INFLUENZA VACCINE, CELL CULT URE, QUADR. (FLUCELVAX QUADRIVALENT; 6MO+) (CCIIV4) 05/14/2023,05/16/2021 INFLUENZA VACCINE, QUADR. (F LUZONE; FLULAVAL; FLUARIX; AFLURIA QUADRIVALENT; 6MO+), 0.5 ML (IIV4) 05/20/2020 INFLUENZA VACCINE, TRIV. (FL UZONE; FLULAVAL; FLUARIX; AFLURIA TRIVALENT; 6MO+), 0.5 ML (IIV3) 05/29/2019 TDAP, HISTORIC VACCINE 07/22/2019 Social History Tobacco Use Types Packs/Day Years [...] Mass Index 24.54 04/07/2024 2:58 PM CDT Plan of Treatment Not on file Procedures Procedure Name Priority Date/Time Associated Diagnosis Comments MRI LUMBAR SPINE WO CONTRAST Routine 06/19/2024 3:34 PM CDT Bilateral foot-drop LIPID PROFILE Routine 04/24/2024 9:17 AM CDT Blood tests for routine general physical examination MAMMO BILAT SCREENING Routine 05/22/2023 8:26 AM CDT Encounter for screening mammogram for malignant neoplasm of breast HM COLONOSCOPY Routine 05/14/2023 HEPATITIS C ANTIBODY Routine 05/12/2022 10:25 AM CDT Need for hepatitis C screening test HIV-1 HIV-2 ANTIBODY + HIV P24 AG PANEL Routine 05/12/2022 10:25 AM CDT Screening for HIV without presence of risk factors from Last 3 Months or Most Recently Relevant to Health Maintenance Results * MRI Lumbar Spine Wo Contrast (06/19/2024 3:34 PM CDT) Anatomical Region Laterality Modality Spine Magnetic Resonan ce 06/20/2024 7:41 AM CDT Impressions 06/20/2024 7:47 AM CDT Multilevel lumbar degenerative disc and joint disease, as detailed level by level above. There is mild spinal canal stenosis at L3-L4 with mild narrowing of the lateral recesses, xqlgm-zxpdwgi-bcid-left. Multilevel neural foraminal stenosis, up to moderate on the right at L5-S1. Right renal pelvocaliectasis. Mild prominence of the left renal pelvis. THIS IS AN ELECTRONICALLY VERIFIED FINAL REPORT 06/20/2024 7:47 AM - Electronically signed by ??Nestor Tenorio M.D. MZ: NEELAM D: ??06/20/2024 7:47 AM T: ??06/20/2024 7:47 AM Report ID: [id number] Reading Location: ??[id number] Narrative 06/20/2024 7:[place] [address] RADIOLOGY REPORT Patient Name: BETHANIE COTO ? [...] with mild narrowing of the lateral recesses, syvof-umotqwc-tcaa-left. L4-5: ?? Disc bulge. ??Orxg-su-mxdzftyn bilateral facet arthropathy. ?? Mild right and cepl-vg-uqhlirgm left neural foraminal stenosis. ?? No significant [...] Procedure Note Nestor Tenorio MD - 06/20/2024 [place] [address] RADIOLOGY REPORT Patient Name: BETHANIE COTO Date [...] with mild narrowing of the lateral recesses, hpuoq-frbkaua-yboe-left. L4-5: Disc bulge. Vlqv-re-oeilmkzq bilateral facet arthropathy. Mild right and plaa-tf-dbtyrptp left neural foraminal stenosis. No significant spinal [...] with mild narrowing of the lateral recesses, xcitf-fomwniz-vdll-left. Multilevel neural foraminal stenosis, up to moderate on the right at L5-S1. Right renal pelvocaliectasis. Mild prominence of the left renal pelvis. THIS IS AN ELECTRONICALLY VERIFIED FINAL REPORT 06/20/2024 7:47 AM - Electronically signed by Nestor Tenorio M.D. MZ: NEELAM Report ID: [id number] Reading Location: [place] [address] Provider Unknown MR ORDERABLES * (ABNORMAL) LIPID PROFILE (04/24/2024 9:17 AM CDT) Cholesterol 136 110 - 200 mg/dL 04/24/2024 10:14 AM CDT [facility] ([facility]) Triglycerides 82 40 - 150 mg/dL 04/24/2024 10:14 AM CDT [facility] ([facility]) HDL 63(H) 40 - 60 mg/dL 04/24/2024 10:14 AM CDT [facility] ([facility]) LDL Direct 51 0 - 99 mg/dL 04/24/2024 10:14 AM CDT [facility] ([facility]) VLDL 16 0 - 40 mg/dL 04/24/2024 10:14 AM CDT [facility] ([facility]) CHOL/HDL RATIO 2.16 0.00 - 4.98 04/24/2024 10:14 AM CDT [facility] ([facility]) Blood BLOOD SPECIMEN / Unknown Lab Venipuncture / Unknown 04/24/2024 9:17 AM CDT 04/24/2024 9:17 AM CDT Ton Locke APRN-CORRECTIONAL CASE RECORDS SUPERVISOR LAB - CHEMISTRY ORDERABLES [facility] ([facility]) [address] [place] [address] * MAMMO BILAT SCREENING (05/22/2023 8:26 AM [...] Len Rodriguez M.D. ? ll/penrad:05/22/2023 19:48:14 ?? Saw Handle Assembler(s): Zuly ??RT Aneudy(Tabitha)(M)(CT), [facility] letter sent: Normal Exam ?? Reading location: [facility] BI-RADS: 1 Negative Narrative 05/22/2023 7:48 PM CDT FROM: [place] [address] PROCEDURE FOR: Bethanie Leslie [address] [place] [address] Home: PID#: [id number] Soc Sec#: [id number] Exam#: [id number] : 1970 Age: 52 TO: TON LOCKE #[id number] - MAMMO BILAT SCREENING BILATERAL DIGITAL SCREENING MAMMOGRAM WITH MEDIOLATERAL OBLIQUE CRANIOCAUDAL: 05/22/2023 The study was acquired using digital technology and interpreted from soft copy . ?? CLINICAL: Routine screening. Patient has no complaints. No personal history of cancer. No family history of breast cancer. ?? COMPARISONS: Comparison is made to exams dated: ??05/16/2022 [facility], 09/05/2021, and 05/31/2020 [facility]. ?? BREAST TISSUE:There are scattered fibroglandular densities in both breasts. ?? FINDINGS: No significant masses, calcifications, or other findings are seen in either breast. ?? There has been no significant interval change. Procedure Note Len Rodriguez MD - 05/23/2023 FROM: [facility] [address] [place] [address] PROCEDURE FOR: Bethanie Coto [address] [place] [address] Home: PID#: [id number] Soc Sec#: [id number] Exam#: [id number] : 1970 Age: 52 TO: TON LOCKE #[id number] - MAMMO BILAT SCREENING BILATERAL DIGITAL SCREENING MAMMOGRAM WITH MEDIOLATERAL OBLIQUE CRANIOCAUDAL: 05/22/2023 The study was acquired using digital technology and interpreted from soft copy . CLINICAL: Routine screening. Patient has no complaints. No personal history of cancer. No family history of breast cancer. COMPARISONS: Comparison is made to exams dated: 05/16/2022 [facility], 09/05/2021, and 05/31/2020 [facility]. BREAST TISSUE:There are scattered fibroglandular densities in [...] exam. Electronically signed by: Len pryor/lissette:05/22/2023 19:48:14 Saw Handle Assembler(s): RT Lilia(R)(M)(CT), [facility] letter sent: Normal Exam Reading location: [facility] BI-RADS: 1 Negative Ton Locke COST ANALYST-CORRECTIONAL CASE RECORDS SUPERVISOR MAMMO ORDERABLES * HM COLONOSCOPY (05/14/2023) Impressions Sheila Garrido RN - 05/14/2023 Negative; repeat in 10 years [facility] - Dr. Shen - see media Historical Provider MD NILSON AGUILAR E * HIV-1 HIV-2 ANTIBODY + HIV P24 AG PANEL (05/12/2022 10:25 AM CDT) HIV-1/HIV-2 Rapid Antibody Negative Negative, Indeterminate 05/12/2022 11:10 AM CDT [facility] ([facility]) Rapid HIV Type 1 p24 Antigen Negative Negative, Indeterminate 05/12/2022 11:10 AM CDT [facility] ([facility]) Blood BLOOD SPECIMEN / Unknown Lab Venipuncture / Unknown 05/12/2022 10:25 AM CDT 05/12/2022 10:25 AM CDT Ton Locke COST ANALYST-CORRECTIONAL CASE RECORDS SUPERVISOR LAB - CHEMISTRY ORDERABLES [facility] ([facility]) [address] [place] [address] * HEPATITIS C ANTIBODY (05/12/2022 10:25 AM CDT) [facility] Hepatitis C Antibody <0.1 0.0 - 0.9 s/co ratio 05/13/2022 11:07 AM CDT [facility] ([facility]) Comment: ?Negative: ? < 0.8 ? Indeterminate: 0.8 - 0.9 ?Positive: ? > 0.9 HCV antibody alone does not differentiate between previous resolved infection and active infection. The CDC and current clinical guidelines recommend that a positive HCV antibody result be followed up with an HCV RNA test to support the diagnosis of acute HCV infection. [facility] offers Hepatitis C Virus (HCV) RNA, Diagnosis, KODY (332935) and Hepatitis C Virus (HCV) Antibody with reflex to Quantitative Real-time PCR (004031). Blood BLOOD SPECIMEN / Unknown Lab Venipuncture / Unknown 05/12/2022 10:25 AM CDT 05/12/2022 10:25 AM CDT Narrative [facility] ([facility]) - 05/13/2022 11:07 AM CDT Performed at: ??01 - [facility] [address] [place], [place] ??[id number] Retail Merchandising Specialist: Puneet Trujillo PhD, Phone: ??[phone] Ton David [facility] - CHEMISTRY ORDERABLES [facility] ([facility]) [address] [place] [address] from Last 3 Months or Most Recently Relevant to Health Maintenance Care Teams Credit And Collections Representative Relationship Specialty Start Date End Date Ton Locke APRN-CNP [address] [place] [address] PCP - General Nurse Practitioner 05/12/22
--- OUTSIDE RECORDS SUMMARY | 2024-08-18 10:02 | XMS_ITS | Clinical Summary ---
Author Organization [facility] Address [address] [place] [address] Care Team Providers Care Senior Sales Director Name Role Phone David Ton [facility] Primary Care Provider + Source Comments [facility],non-owned Affiliates and Associated Physician Practices is amultiple site organization consisting of ambulatory clinics and hospital sitesin [place], [place], [place]. This disclosure is being madepursuant to the Care Everywhere program and may not contain all information available regarding this patient. Last updated 18.[facility] Allergies No known active allergies Medications * [...] (06/07/2022): Added automatically from request for surgery [id number] Colostomy in place 03/16/2022 Overview (06/07/2022): Added automatically from request for surgery [id number] Anal fistula 02/08/2021 Overview (06/07/2022): Added automatically from request for surgery [id number] Rectovaginal fistula 08/31/2020 Overview (06/07/2022): Added automatically from request for surgery [id number] Encounters Date Type Department Care Team Description 06/19/2024 2:19 PM CDT - 06/19/2024 11:59 PM CDT Hospital Encounter [facility] [address] [place] [address] Chelita Polanco DC Discharge Disposition: Home or Self Care from Last 3 Months Immunizations Name Administration Dates Next Due COVID PFIZER 12+YR 30MCG/0.3mL 05/14/2023 Covid Pfizer primary monoval ent 12+ yr 0.3mL Purple cap 06/02/2021,11/08/2020,10/18/2020 INFLUENZA VACCINE, CELL CULT URE, QUADR. (FLUCELVAX QUADRIVALENT; 6MO+) (CCIIV4) 05/14/2023,05/16/2021 INFLUENZA VACCINE, QUADR. (F LUZONE; FLULAVAL; FLUARIX; AFLURIA QUADRIVALENT; 6MO+), 0.5 ML (IIV4) 05/20/2020 INFLUENZA VACCINE, TRIV. (FL UZONE; FLULAVAL; FLUARIX; AFLURIA TRIVALENT; 6MO+), 0.5 ML (IIV3) 05/29/2019 TDAP, HISTORIC VACCINE 07/22/2019 Family History Medical History Relation Name Comments None Known Father None Known Mother Relation Name Status Comments Father Maternal Grandfather Maternal Grandmother Mother Paternal Grandfather Paternal Grandmother Sister Alive Social History Tobacco Use Types Packs/Day Years [...] 04/07/2024 2:58 PM CDT Plan of Treatment Health Maintenance Due Date Last Done Comments NIGEL (AGES 45-75) - COLON CA SCREENING 1970 CT COLONOGRAPHY - COLON CA SCREENING 1970 FIT - COLON CA SCREENING 1970 FLEX SIG - COLON CA SCREENING 1970 ZOSTER VACCINE (1 of 2) 2020 PAP SMEAR 02/18/2024 02/17/2021 (Done Outside Per Patient) COVID-19 VACCINE ( - season) 2024 05/14/2023, 12/01/2021, 06/02/2021, Additional history exists INFLUENZA VACCINE (#1) 2024 , 05/16/2021, 05/20/2020, Additional history exists MAMMOGRAM 05/22/2025 05/22/2023, 04/21, 04/18/2019, Additional history exists LIPID TESTING 04/24/2029 04/24/2024, 01/19, 05/12/2022 DTAP/TDAP/TD VACCINES (2 - Td or Tdap) 07/22/2029 07/22/2019 COLON MONITORING 05/14/2033 05/14/2023 COLONOSCOPY - COLON CA SCREENING 05/14/2033 05/14/2023 Colorectal Cancer Screening 05/14/2033 HEPATITIS C SCREENING Completed 05/12/2022 HIV SCREENING Completed 05/12/2022 DEPRESSION SCREENING Completed 11/20/2023, 10/02/2022, 05/12/2022 HEPATITIS B VACCINE Discontinued HIB VACCINE Aged Out No longer eligi ble based on patient's age to complete this topic HPV VACCINE Aged Out No longer eligi ble based on patient's age to complete this topic MENINGOCOCCAL VACCINE Aged Out No johann mary eligible based on patient's age to complete this topic PNEUMOCOCCAL VACCINE Aged Out No long er eligible based on patient's age to complete this topic Procedures Procedure Name Priority Date/Time Associated Diagnosis [...] with mild narrowing of the lateral recesses, doptc-wuavmnv-pkmz-left. Multilevel neural foraminal stenosis, up to moderate on the right at L5-S1. Right renal pelvocaliectasis. Mild prominence of the left renal pelvis. THIS IS AN ELECTRONICALLY VERIFIED FINAL REPORT 06/20/2024 7:47 AM - Electronically signed by ??Nestor Tenorio M.D. MZ: NEELAM D: ??06/20/2024 7:47 AM T: ??06/20/2024 7:47 AM Report ID: [id number] Reading Location: ??[id number] Narrative 06/20/2024 7:[place] [address] RADIOLOGY REPORT Patient Name: BETHANIE COTO ? [...] with mild narrowing of the lateral recesses, gbmph-ibrolcu-vhzg-left. L4-5: ?? Disc bulge. ??Pfrb-vm-udwhbrkp bilateral facet arthropathy. ?? Mild right and wkbs-dw-pyfspoxm left neural foraminal stenosis. ?? No significant [...] Procedure Note Nestor Tenorio MD - 06/20/[address] [address] RADIOLOGY REPORT Patient Name: BETHANIE COTO Date [...] with mild narrowing of the lateral recesses, xylro-mtihedg-ttpk-left. L4-5: Disc bulge. Luyb-zm-pvnkzwuu bilateral facet arthropathy. Mild right and cnch-fj-igzsxpyb left neural foraminal stenosis. No significant spinal [...] with mild narrowing of the lateral recesses, glnuv-vswhpov-wcak-left. Multilevel neural foraminal stenosis, up to moderate on the right at L5-S1. Right renal pelvocaliectasis. Mild prominence of the left renal pelvis. THIS IS AN ELECTRONICALLY VERIFIED FINAL REPORT 06/20/2024 7:47 AM - Electronically signed by Nestor Tenorio M.D. MZ: MZ Report ID: [id number] Reading Location: [id number] Provider Unknown MR ORDERABLES * (ABNORMAL) LIPID PROFILE (04/24/2024 9:17 AM CDT) Cholesterol 136 110 - 200 mg/dL 04/24/2024 10:14 AM CDT [facility] ([facility]) Triglycerides 82 40 - 150 mg/dL 04/24/2024 10:14 AM CDT [facility] ([facility]) HDL 63(H) 40 - 60 mg/dL 04/24/2024 10:14 AM CDT [facility] ([facility]) LDL Direct 51 0 - 99 mg/dL 04/24/2024 10:14 AM CDT [facility] ([facility]) VLDL 16 0 - 40 mg/dL 04/24/2024 10:14 AM CDT [facility] ([facility]) CHOL/HDL RATIO 2.16 0.00 - 4.98 04/24/2024 10:14 AM CDT [facility] ([facility]) Blood BLOOD SPECIMEN / Unknown Lab Venipuncture / Unknown 04/24/2024 9:17 AM CDT 04/24/2024 9:17 AM CDT Ton Hernandez [employer] AIRCRAFT MECHANIC-ENVIRONMENTAL COMPLIANCE INSPECTOR LAB - CHEMISTRY ORDERABLES [facility] ([facility]) [address] [place] [address] * MAMMO BILAT SCREENING (05/22/2023 8:26 AM [...] Len Rodriguez M.D. ? ll/penrad:05/22/2023 19:48:14 ?? Retail Field Merchandiser(s): Zuly ??RT Aneudy(R)(M)(CT), [facility] letter sent: Normal Exam ?? Reading location: [place] BI-RADS: 1 Negative Narrative 05/22/2023 7:48 PM CDT FROM: [place] [address] PROCEDURE FOR: Bethanie Coto [address] [place] [address] Home: PID#: [id number] Soc Sec#: [id number] Exam#: [id number] : 1970 Age: 52 TO: TON HERNANDEZ #[id number] - MAMMO BILAT SCREENING BILATERAL DIGITAL SCREENING MAMMOGRAM WITH MEDIOLATERAL OBLIQUE CRANIOCAUDAL: 05/22/2023 The study was acquired using digital technology and interpreted from soft copy . ?? CLINICAL: Routine screening. Patient has no complaints. No personal history of cancer. No family history of breast cancer. ?? COMPARISONS: Comparison is made to exams dated: ??05/16/2022 [facility], 09/05/2021, and 05/31/2020 [facility]. ?? BREAST TISSUE:There are scattered fibroglandular densities in both breasts. ?? FINDINGS: No significant masses, calcifications, or other findings are seen in either breast. ?? There has been no significant interval change. Procedure Note Len Rodriguez MD - 05/23/2023 FROM: [place] [address] PROCEDURE FOR: Bethanie [address] [place] [address] Home: PID#: [id number] [facility] Sec#: [id number] Exam#: [id number] : 1970 Age: 52 TO: TON HERNANDEZ #[id number] - MAMMO BILAT SCREENING BILATERAL DIGITAL SCREENING MAMMOGRAM WITH MEDIOLATERAL OBLIQUE CRANIOCAUDAL: 05/22/2023 The study was acquired using digital technology and interpreted from soft copy . CLINICAL: Routine screening. Patient has no complaints. No personal history of cancer. No family history of breast cancer. COMPARISONS: Comparison is made to exams dated: 05/16/2022 [facility], 09/05/2021, and [facility]/31/2020 [facility] [...] exam. Electronically signed by: Len pryor/lissette:05/22/2023 19:48:14 Retail Field Merchandiser(s): Zuly Amado RT(R)(M)(CT), [facility] letter sent: Normal Exam Reading location: [facility] BI-RADS: 1 Negative Ton Hernandez RIGGING AND CONTROLS AIRCRAFT MECHANIC-ENVIRONMENTAL COMPLIANCE INSPECTOR MAMMO ORDERABLES * HM COLONOSCOPY (05/14/2023) Impressions Sheila Garrido, RN - 05/14/2023 Negative; repeat in 10 years [facility] - [address] Shen - see media Historical Provider MD NILSON AGUILAR E * HIV-1 HIV-2 ANTIBODY + HIV P24 AG PANEL (05/12/2022 10:25 AM CDT) HIV-1/HIV-2 Rapid Antibody Negative Negative, Indeterminate 05/12/2022 11:10 AM CDT [facility] ([facility]) Rapid HIV Type 1 p24 Antigen Negative Negative, Indeterminate 05/12/2022 11:10 AM CDT [facility] ([facility]) Blood BLOOD SPECIMEN / Unknown Lab Venipuncture / Unknown 05/12/2022 10:25 AM CDT 05/12/2022 10:25 AM CDT Ton Hernandez RIGGING AND CONTROLS AIRCRAFT MECHANIC-ENVIRONMENTAL COMPLIANCE INSPECTOR LAB - CHEMISTRY ORDERABLES [facility] ([facility]) [address] [place] [address] * HEPATITIS C ANTIBODY (05/12/2022 10:25 AM CDT) Hepatitis C Antibody <0.1 0.0 - 0.9 s/co ratio 05/13/2022 11:07 AM CDT [facility] Comment: ?Negative: ? < 0.8 ? Indeterminate: 0.8 - 0.9 ?Positive: ? > 0.9 HCV antibody alone does not differentiate between previous resolved infection and active infection. The CDC and current clinical guidelines recommend that a positive HCV antibody result be followed up with an HCV RNA test to support the diagnosis of acute HCV infection. [facility] offers Hepatitis C Virus (HCV) RNA, Diagnosis, KODY (345420) and Hepatitis C Virus (HCV) Antibody with reflex to Quantitative Real-time PCR (071130). Blood BLOOD SPECIMEN / Unknown Lab Venipuncture / Unknown 05/12/2022 10:25 AM CDT 05/12/2022 10:25 AM CDT Narrative [facility] ([facility]) - 05/13/2022 11:07 AM CDT Performed at: ??01 - [facility] ??[id number] Waxing Machine Operator: Puneet Trujillo PhD, Phone: ??[phone] Ton HOLT LAB - CHEMISTRY ORDERABLES [facility] [address] [place] [address] from Last 3 Months or Most Recently Relevant to Health Maintenance Care Teams Senior Sales Director Relationship Specialty Start Date End Date Ton Hernandez APRN-CNP [address] [place] [address] PCP - General Nurse Practitioner 05/12/22
--- OUTSIDE RECORDS SUMMARY | 2024-08-18 10:03 | XMS_ITS | Encounter Summary ---
Author Organization [facility] Address [address] [place] [address] Care Team Providers Care Nuclear Equipment Research Engineer Name Role Phone Ton Hernandez Primary Care Provider + Encounter Details Date Type Department Care Team (Late st Contact Info) Description 05/13/2022 Orders Only [facility] [address] [place] [address] Ton Hernandez APRN-CNP [address] [place] [address] Laboratory examination ordered as part of a routine general medical examination Social History Tobacco Use Types Packs/Day Years Used Date Smoking Tobacco: Never Smokeless Tobacco: Never PHQ-2 Answer Date Recorded PHQ2 TOTAL SCORE 0 05/12/2022 Sex and Gender Information Value Date Recorded Sex Assigned at Not on file Gender Identity Not on file Sexual Orientation Not on file COVID-19 Exposure Response Date Recorded In the last 10 days, have yo u been in contact with someone who was confirmed or suspected to have Coronavirus/COVID-19? No / Unsure 05/16/2022 8:55 AM CDT documented as of this encounter Plan of Treatment Not on file documented as of this encounter Results * (ABNORMAL) COMPREHENSIVE METABOLIC PANEL (05/16/2022 9:45 AM CDT) Sodium 137 137 - 145 mmol/L 05/16/2022 10:18 AM CDT [facility] ([facility]) Potassium 4.6 3.6 - 5.0 mmol/L 05/16/2022 10:18 AM [facility] ([facility]) Chloride 103 98 - 107 mmol/L 05/16/2022 10:18 AM [facility] ([facility]) Carbon Dioxide 26 21 - 31 mmol/L 05/16/2022 10:18 AM [facility] ([facility]) Glucose 100 65 - 100 mg/dL 05/16/2022 10:18 AM [facility] ([facility]) BUN 19(H) 7 - 17 mg/dL 05/16/2022 10:18 AM [facility] ([facility]) Creatinine 0.70 0.50 - 1.04 mg/dL 05/16/2022 10:18 AM [facility] ([facility]) eGFR 88 >=60 ml/min/1.7 3*2 05/16/2022 10:18 AM [facility] ([facility]) Comment: Chronic kidney disease is defined [...] Test will not be performed. BUN/Creatinine Ratio 28.4(H) 6.0 - 26.0 05/16/2022 10:18 AM [facility] ([facility]) Calcium 9.1 8.4 - 10.7 mg/dL 05/16/2022 10:18 AM [facility] ([facility]) Protein Total 7.8 6.3 - 8.2 g/dL 05/16/2022 10:18 AM T [facility] ([facility]) Albumin 4.6 3.9 - 5.0 g/dL 05/16/2022 10:18 AM T [facility] ([facility]) Albumin/Globulin Ratio 1.5 1.1 - 2.2 g/dL 05/16/2022 10:18 AM T [facility] ([facility]) Bilirubin Total 0.7 0.2 - 1.3 mg/dL 05/16/2022 10:18 AM T [facility] ([facility]) Alkaline Phosphatase 54 38 - 126 U/L 05/16/2022 10:18 AM T [facility] ([facility]) AST 27 8 - 39 U/L 05/16/2022 10:18 AM T [facility] ([facility]) ALT 26 9 - 52 U/L 05/16/2022 10:18 AM [facility] ([facility]) Blood BLOOD SPECIMEN / Unknown Lab Venipuncture / Unknown 05/16/2022 9:45 AM CDT 05/16/2022 9:45 AM CDT Ton [facility] - CHEMISTRY ORDERABLES Performing Organization Address [facility]/State/ZIP Co de Phone Number [facility] ([facility]) [address] [place] [address] documented in this encounter Visit Diagnoses Diagnosis Laboratory examination ordered as part of a routine general medical examination- Primary documented in this encounter Care Teams Nuclear Equipment Research Engineer Relationship Specialty Start Date End Date Ton Hernandez APRN-CNP [address] [place] [address] PCP - General Nurse Practitioner 05/12/22 documented as of this encounter
--- OUTSIDE RECORDS SUMMARY | 2024-08-18 10:03 | XMS_ITS | Encounter Summary ---
Author Organization [facility] Address [address] [place] [address] Care Team Providers Care Clinical Document Improvement Educator Name Role Phone Ton Hernandez Primary Care Provider + Reason for Visit * Reason Comments Anxiety Stress Encounter Details Date Type Department Care Team ([facility] Contact Info) Description 10/02/2022 1:30 PM PACKING CLERK Office Visit [facility] [address] [place] [address] Ton Hernandez APRN-CNP [address] [place] [address] Anxiety (Primary Dx); Perimenopausal Social History Tobacco Use Types Packs/Day Years Used Date Smoking Tobacco: Never Smokeless Tobacco: Never Tobacco Cessation:Counseling Given: No Alcohol Use Standard Drinks/Week Comments Not Currently 0 (1 standard drink = 0.6 oz pur e alcohol) PHQ-2 Answer Date Recorded PHQ2 TOTAL SCORE 0 10/02/2022 Sex and Gender Information Value Date Recorded Sex Assigned at Not on file Gender Identity Not on file Sexual Orientation Not on file COVID-19 Exposure Response Date Recorded In the last 10 days, have yo u been in contact with someone who was confirmed or suspected to have Coronavirus/COVID-19? No / Unsure 10/02/2022 2:58 PM PACKING CLERK documented as of this encounter Last Filed Vital Signs Vital Sign Reading Time Taken Comments Blood Pressure 118/80 10/02/2022 1:42 PM PACKING CLERK Pulse 69 10/02/2022 1:42 PM PACKING CLERK Temperature 36.4 ??C (97.5 ??F) 10/02/2022 1:42 PM CS T Respiratory Rate 18 10/02/2022 1:42 PM PACKING CLERK Oxygen Saturation 97% 10/02/2022 1:42 PM PACKING CLERK Inhaled Oxygen Concentration - - Weight 94.6 kg (208 lb 9.6 oz) 10/02/2022 1:42 P M PACKING CLERK Height 177.8 cm (5' 10 ) 10/02/2022 1:42 PM PACKING CLERK Body Mass Index 29.93 10/02/2022 1:42 PM PACKING CLERK documented in this encounter Progress Notes * Ton Hernandez APRN-CNP - 10/02/2022 2:29 PM CST 10/02/2022 PCP: YANET Langston CC: Chief Complaint Patient presents with ??? Anxiety ??? Stress . HPI: Belem Coto is a 51 year old female presents today with complaints of anxiety, inability to focus, feeling overwhelmed, and irritable. States she is not able to focus to read, cannot complete tasks and feels irritable. Outpatient Medications Prior to Visit Medication Sig [...] (one) tablet by mouth at bedtime (Patient taking differently: Take 1 (one) tablet by mouth nightly as needed) 30 tablet 0 ??? LYSINE PO Take 1 tablet by mouth once daily ??? Multiple Vitamin (MULTIVITAMIN ADULT PO) Take 1 capsule by mouth once daily ??? Multiple Vitamins-Minerals (ZINC PO) Take 1 tablet by mouth once daily ??? simethicone (Gas-X) 125 MG capsule No facility-administered medications prior to visit. Depression: Patient Health Questionnaire 10/02/2022 [place]? 0 Feeling Down? 0 Past Medical History: Diagnosis Date ??? Anal fistula ??? Rectovaginal fistula Past Surgical History: Procedure Laterality Date ??? Appendectomy 1977 ??? Colostomy 2019 ??? ENDOMETRIAL ABLATION 2010 ??? INTEROENTERIC/ENTEROCOLIC FISTULA CLOSURE 2019 vaginal rectal fistula 4 flap procedures ??? Lipectomy 2009 ??? OTHER SURGERY 05/18/2022 colostomy reversal Social History Tobacco Use Smoking Status Never Smokeless Tobacco Never Social History Substance and Sexual Activity Drug Use Never No Known Allergies No family history on file. Review of Systems: Review of Systems Constitutional: [...] headaches. Psychiatric/Behavioral: Negative for depression. The patient is nervous/anxious. Exam: BP 118/80 (BP SITE: LEFT ARM, BP POSITION: SITTING, BP CUFF SIZE: 11) Pulse 69 Temp 97.5 ??F (36.4 ??C) (Temporal) Resp 18 Ht 1.778 m (5' 10 ) Wt 94.6 kg (208 lb 9.6 oz) SpO2 97% BMI 29.93 kg/m?? Physical Exam Cardiovascular: Rate and Rhythm: Normal rate and regular rhythm. Pulses: Normal pulses. Heart sounds: Normal heart sounds. Pulmonary: Breath sounds: Normal breath sounds. Neurological: General: No focal deficit present. Mental Status: She is alert. Psychiatric: Mood and Affect: Mood normal. No results found for this visit on 10/02/22. Plan Impression: 1. Anxiety (Primary) Start 5 mg celexa daily. Follow up in 3 weeks. - citalopram (CeleXA) 10 MG tablet; Take 0.5 (one-half) tablet by mouth once daily 2. Perimenopausal Will collect labs to evaluate menopause status. - FSH + LH PANEL; Future - TSH; Future - TESTOSTERONE FREE (DIRECT)+TOTAL - ESTROGEN TOTAL; Future - PROLACTIN; Future Other orders - valACYclovir (Valtrex) 500 MG tablet; Take 1 (one) tablet by mouth 3 times daily Treatment: Orders Placed This Encounter ??? valACYclovir (Valtrex) 500 MG tablet Sig: Take 1 (one) tablet by mouth 3 times daily Dispense: 30 tablet Refill: 0 ??? citalopram (CeleXA) 10 MG tablet Sig: Take 0.5 (one-half) tablet by mouth once daily Dispense: 30 tablet Refill: 1 There are no Patient Instructions on file for this visit. There are no discontinued medications. Current Outpatient Medications Medication Sig Dispense Refill ??? Ascorbic Acid 1000 MG Take 1 (one) tablet by mouth at bedtime ??? Biotin 1000 MCG CHEW Take 1 capsule by mouth once daily ??? Cholecalciferol 50 MCG (2000 UT) Take 2,000 Units by mouth at bedtime ??? citalopram (CeleXA) 10 MG tablet Take 0.5 (one-half) tablet by mouth once daily 30 tablet 1 ??? ibuprofen (Motrin) 600 MG tablet ??? Loperamide (Imodium) 2 MG tablet Take 1 (one) tablet by mouth 4 times daily as needed for Diarrhea ??? LORazepam (Ativan) 0.5 MG tablet Take 1 (one) tablet by mouth at bedtime (Patient taking differently: Take 1 (one) tablet by mouth nightly as needed) 30 tablet 0 ??? LYSINE PO Take 1 tablet by mouth once daily ??? Multiple Vitamin (MULTIVITAMIN ADULT PO) Take 1 capsule by mouth once daily ??? Multiple Vitamins-Minerals (ZINC PO) Take 1 tablet by mouth once daily ??? simethicone (Gas-X) 125 MG capsule ??? valACYclovir (Valtrex) 500 MG tablet Take 1 (one) tablet by mouth 3 times daily 30 tablet 0 No current facility-administered medications for this visit. Follow up : No follow-ups on file. YANET Langston ING CLERK documented in this encounter Plan of Treatment Not on file documented as of this encounter Procedures Procedure Name Priority Date/Time Associated Diagnosis Comments TESTOSTERONE FREE (DIRECT)+TOTAL Routine 10/02/2022 3:01 PM PACKING CLERK Perimenopausal documented in this encounter Results * PROLACTIN (10/02/2022 3:01 PM PACKING CLERK) [facility] Prolactin 9.7 4.8 - 23.3 ng/mL 10/04/2022 8:10 AM PACKING CLERK [facility] Blood BLOOD SPECIMEN / Unknown Lab Venipuncture / Unknown 10/02/2022 3:01 PM PACKING CLERK 10/02/2022 3:01 PM PACKING CLERK Narrative [facility]) - 10/04/2022 8:10 AM PACKING CLERK Performed at: ??01 - [facility] [address] [place] [address] ??[id number] Network Field Engineer: Puneet Trujillo PhD, Phone: ??[phone] Ton Hernandez APRN-[facility] - CHEMISTRY ORDERABLES [facility] ([facility]) [address] [place] [address] * ESTROGEN TOTAL (10/02/2022 3:01 PM PACKING CLERK) [facility] Estrogen Total 129 pg/mL 10/06/2022 9:06 PM PACKING CLERK [facility]) Comment: ? Prepubertal ? < 40 ? Female Cycle: ? 1-10 Days ? 16 - 328 ? 11-20 Days ?34 - 501 ? 21-30 Days ?48 - 350 ? Post-Menopausal ?? 40 - 244 Blood BLOOD SPECIMEN / Unknown Lab Venipuncture / Unknown 10/02/2022 3:01 PM PACKING CLERK 10/02/2022 3:01 PM PACKING CLERK Narrative [facility]) - 10/06/2022 9:06 PM PACKING CLERK Performed at: ??01 - [facility] [address] ??[id number] Network Field Engineer: Skyler Milligan MD, Phone: ??[phone] Ton Hernandez APRN-[facility] - CHEMISTRY ORDERABLES Performing Organization Address City/[facility]/ZIP Co de Phone Number [facility]) [address] [place] [address] * (ABNORMAL) TESTOSTERONE FREE (DIRECT)+TOTAL (10/02/2022 3:01 PM PACKING CLERK) Testosterone <3(L) 4 - 50 ng/dL 10/10/2022 4:06 AM PACKING CLERK [facility]) Free Testosterone(Dire ct) 0.3 0.0 - 4.2 pg/mL 10/10/2022 4:06 AM PACKING CLERK [facility]) Blood BLOOD SPECIMEN / Unknown Lab Venipuncture / Unknown 10/02/2022 3:01 PM PACKING CLERK 10/02/2022 3:01 PM PACKING CLERK Sarah [facility]) - 10/10/2022 4:06 AM PACKING CLERK Performed at: ??01 - [facility] [address] ??[id number] Network Field Engineer: Puneet Trujillo PhD, Phone: ??[phone] Performed at: ??02 - [facility] [address] ??[id number] Network Field Engineer: Skyler Milligan MD, Phone: ??[phone] Ton Hernandez APRN-[facility] - CHEMISTRY ORDERABLES Performing Organization Address [facility]/ZIP Co de Phone Number [facility] ([facility]) [address] [place] [address] * TSH (10/02/2022 3:01 PM PACKING CLERK) TSH 1.000 0.465 - 4.680 mIU/mL 10/02/2022 4:39 PM PACKING CLERK [facility] ([facility]) Blood BLOOD SPECIMEN / Unknown Lab Venipuncture / Unknown 10/02/2022 3:01 PM PACKING CLERK 10/02/2022 3:01 PM PACKING CLERK Ton Hernandez COMPOSITOR APPRENTICE-[facility] - CHEMISTRY ORDERABLES [facility] ([facility]) [address] [place] [address] * FSH + LH PANEL (10/02/2022 3:01 PM PACKING CLERK) LH 5.4 mIU/mL 10/04/2022 8:10 AM PACKING CLERK [facility] Comment: ?Adult Female: ?Follicular phase ?2.4 - ??12.6 ?Ovulation phase ?14.0 - ??95.6 ?Luteal phase ?1.0 - ??11.4 ?Postmenopausal ?7.7 - ??58.5 FSH 7.8 mIU/mL 10/04/2022 8:10 AM PACKING CLERK [facility] Comment: ?Adult Female: ?Follicular phase ?3.5 - ??12.5 ?Ovulation phase ? 4.7 - ??21.5 ?Luteal phase ?1.7 - ?? 7.7 ?Postmenopausal ? 25.8 - 134.8 Blood BLOOD SPECIMEN / Unknown Lab Venipuncture / Unknown 10/02/2022 3:01 PM PACKING CLERK 10/02/2022 3:01 PM PACKING CLERK Narrative [facility]) - 10/04/2022 8:10 AM PACKING CLERK Performed at: ??01 - [facility] [address] [place], [place] ??[id number] Network Field Engineer: Puneet Trujillo PhD, Phone: ??[phone] Ton [facility] - CHEMISTRY ORDERABLES Performing Organization Address City/State/[facility] Co de Phone Number [facility]) [address] [place] [address] documented in this encounter Visit Diagnoses Diagnosis Anxiety- Primary Anxiety state, unspecified Perimenopausal Symptomatic menopausal or female climacteric states documented in this encounter Care Teams Clinical Document Improvement Educator Relationship Specialty Start Date End Date Ton Hernandez APRN-CNP [address] [place] [address] PCP - General Nurse Practitioner 05/12/22 documented as of this encounter
--- OUTSIDE RECORDS SUMMARY | 2024-08-18 10:03 | XMS_ITS | Encounter Summary ---
Author Organization [facility] Address [address] [place] [address] Care Team Providers Care Entry Level Finance Name Role Phone Ton Hernandez Primary Care Provider + Reason for Visit * Reason Onset Date Comments Results 05/16/2022 Encounter Details Date Type Department Care Team (Late st Contact Info) Description 05/16/2022 Telephone [facility] - Procedure Room [address] [place] [address] Ton Hernandez APRN-CNP [address] [place] [address] Results Social History Tobacco Use [...] AM CDT documented as of this encounter Miscellaneous Notes * Telephone Encounter - Jaimee Day MA - 05/16/2022 1:06 PM CDT Relayed provider's message on patient's personal voice mail. * Telephone Encounter - Jaimee Day MA - 05/16/2022 1:06 PM CDT ----- Message from YANET Hadley sent at 05/16/2022 11:51 AM CDT ----- Please let pt know her labs are normal. Increase fluid intake. BUN just barely elevated. documented in this encounter Plan of Treatment Not on file documented as of this encounter Visit Diagnoses Not on filedocumented in this encounter Care Teams Entry Level Finance Relationship Specialty Start Date End Date Ton Hernandez APRN-CNP [address] [place] [phone] PCP - General Nurse Practitioner 05/12/22 documented as of this encounter
--- OUTSIDE RECORDS SUMMARY | 2024-08-18 10:03 | XMS_ITS | Encounter Summary ---
Author Organization [facility] Address [address] [place] [address] Care Team Providers Care Full Stack Software Engineer Name Role Phone Ton Hernandez Primary Care Provider + Reason for Visit * Reason Onset Date Comments Mouth Lip Problem 05/13/2022 Encounter Details Date Type Department Care Team ([facility] st Contact Info) Description 05/13/2022 Telephone [facility] [address] [place] [address] Ton Hernandez APRN-CNP [address] [place] [address] Mouth Lip Problem Social History Tobacco Use Types Packs/Day [...] on filedocumented in this encounter Care Teams Full Stack Software Engineer Relationship Specialty Start Date End Date Ton Hernandez APRN-CNP [address] [place] [address] PCP - General Nurse Practitioner 05/12/22 documented as of this encounter
--- OUTSIDE RECORDS SUMMARY | 2024-08-18 10:03 | XMS_ITS | Encounter Summary ---
Author Organization [facility] Address [address] [place] [address] Care Team Providers Care Speech And Language Assistant Name Role Phone Ton Hernandez Primary Care Provider + Reason for Visit * Reason Comments Refill Request Encounter Details Date Type Department Care Team ([facility] st Contact Info) Description 11/29/2022 Refill [facility] [address] [place] [address] Ton Hernandez APRN-CNP [address] [place] [address] Refill Request Social History Tobacco Use Types Packs/Day Years Used Date Smoking Tobacco: Never Smokeless Tobacco: Never Alcohol Use Standard Drinks/Week Comments Not Currently 0 (1 standard drink = 0.6 oz pur e alcohol) PHQ-2 Answer Date Recorded PHQ2 TOTAL SCORE 0 11/13/2022 Sex and Gender Information Value Date Recorded Sex Assigned at Not on file Gender Identity Not on file Sexual Orientation Not on file documented as of this encounter Plan of Treatment Not on file documented as of this encounter Visit Diagnoses Not on filedocumented in this encounter Care Teams Speech And Language Assistant Relationship Specialty Start Date End Date Ton Hernandez APRN-CNP [address] [place] [address] PCP - General Nurse Practitioner 05/12/22 documented as of this encounter
--- OUTSIDE RECORDS SUMMARY | 2024-08-18 10:03 | XMS_ITS | Encounter Summary ---
Author Organization [facility] Address [address] [place] [address] Care Team Providers Care Search And Rescue Officer Name Role Phone Lisseth Hernandez Primary Care Provider + Reason for Visit * Reason Onset Date Comments Refill Request 05/31/2022 Encounter Details Date Type Department Care Team ([facility] st Contact Info) Description 05/31/2022 Telephone [facility] [address] [place] [address] Lisseth Hernandez APRN-CNP [address] [place] [address] Refill Request Social History Tobacco [...] encounter Miscellaneous Notes * Telephone Encounter - Alona Loja - 06/01/2022 8:48 AM CDT Patient having increased anxiety after colostomy reversal. Scheduled for 06/07 at 8:00 AM * Telephone Encounter - Sheila Garrido RN - 05/31/2022 5:19 PM CDT This medication was not discussed at appointment; will need appt for refill. * Telephone Encounter - Cyndee Valencia - 05/31/2022 4:36 PM CDT Was on lorazepam 0.5mg prescribed from previous PCP would like lisseth to send a refill. Please sendto [facility]. documented in this encounter Plan of Treatment Not on file documented as of this encounter Visit Diagnoses Not on filedocumented in this encounter Care Teams Search And Rescue Officer Relationship Specialty Start Date End Date Lisseth Hernandez APRN-VIJI [address] [place] [phone] PCP - General Nurse Practitioner 05/12/22 documented as of this encounter
--- OUTSIDE RECORDS SUMMARY | 2024-08-18 10:03 | XMS_ITS | Encounter Summary ---
Author Organization [facility] Address [address] [place] [address] Care Team Providers Care Records Tech Name Role Phone Ton Hernandez Primary Care Provider + Reason for Visit * Reason Comments Follow-up 1 mo Encounter Details Date Type Department Care Team ([facility] st Contact Info) Description 01/19/2023 7:30 AM CDT [facility] [address] [place] [address] Ton Hernandez APRN-CNP [address] [place] [address] Anxiety (Primary Dx); Sleep disturbance; Atypical mole Social History Tobacco Use Types Packs/Day Years Used Date Smoking Tobacco: Never Smokeless Tobacco: Never Tobacco Cessation:Counseling Given: Not Answered Alcohol Use Standard Drinks/Week Comments Not Currently 0 (1 standard drink = 0.6 oz pur e alcohol) PHQ-2 Answer Date Recorded PHQ2 TOTAL SCORE 0 01/19/2023 Sex and Gender Information Value Date Recorded Sex Assigned at Not on file Gender Identity Not on file Sexual Orientation Not on file documented as of this encounter Last Filed Vital Signs Vital Sign Reading Time Taken Comments Blood Pressure 110/80 01/19/2023 7:40 AM CDT Pulse 78 01/19/2023 7:40 AM CDT Temperature 36.6 ??C (97.8 ??F) 01/19/2023 7:40 AM CD T Respiratory Rate 18 01/19/2023 7:40 AM CDT Oxygen Saturation 98% 01/19/2023 7:40 AM CDT Inhaled Oxygen Concentration - - Weight 95.3 kg (210 lb) 01/19/2023 7:40 AM CDT Height 177.8 cm (5' 10 ) 01/19/2023 7:40 AM CDT Body Mass Index 30.13 01/19/2023 7:40 AM CDT documented in this encounter Progress Notes * David Ton, LIFE SKILLS INSTRUCTOR-CIVILIAN TECHNICIAN - 01/19/2023 8:04 AM CDT Images from the original note were not included. Belem Coto 1970 52 year old DOS 01/19/2023 Chief Complaint Patient presents with ??? Follow-up 1 mo HPI: Current Medications: Encounter Diagnoses Name Primary? Anxiety Patient feels is unchanged --poorly controlled Pt complains of worsening anxiety and medication side effects. She has had an increase in life stress. States the side effects of the effexor are intolerable. Food and alcohol cravings are controlled well on topamax. Yes ??? Sleep disturbance Patient feels is unchanged --fairly controlled Sleep is improved, but not controlled well. Current Outpatient Medications Medication ??? Ascorbic Acid 1000 MG ??? Biotin 1000 MCG CHEW ??? Cholecalciferol 50 MCG (2000 UT) ??? ibuprofen (Motrin) 600 MG tablet ??? Loperamide (Imodium) 2 MG tablet ??? LORazepam (Ativan) 0.5 MG tablet ??? LYSINE PO ??? Multiple Vitamin (MULTIVITAMIN ADULT PO) ??? Multiple Vitamins-Minerals (ZINC PO) ??? simethicone (Gas-X) 125 MG capsule ??? topiramate (Topamax) 25 MG tablet ??? valACYclovir (Valtrex) 500 MG tablet ??? venlafaxine XR 24hr (Effexor XR) 37.5 MG capsule No current facility-administered medications for this visit. No specialty comments available. Medical history: Past Medical History: Diagnosis Date ??? Anal fistula ??? Anxiety disorder ??? Rectovaginal fistula Allergies: No Known Allergies Surgical history: Past Surgical History: Procedure Laterality Date ??? Appendectomy 1977 ??? Colostomy 2019 ??? ENDOMETRIAL ABLATION 2010 ??? INTEROENTERIC/ENTEROCOLIC FISTULA CLOSURE 2019 vaginal rectal fistula 4 flap procedures ??? Lipectomy 2009 ??? OTHER SURGERY 05/18/2022 colostomy reversal Family History: Family Status Relation Name Status ??? Mother ??? Father ??? Sister Alive ??? Mat Gmother ??? Mat Gfather ??? Pat Gmother ??? Pat Gfather No family history on file. Social History: Social History Socioeconomic History ??? Marital status: Spouse name: Not on file ??? Number of children: Not on file ??? Years of education: Not on file ??? Highest education level: Not on file Occupational History ??? Not on file Tobacco Use ??? Smoking status: Never ??? Smokeless tobacco: Never Vaping Use ??? Vaping status: Never Used Substance and Sexual Activity ??? Alcohol use: Not Currently ??? Drug use: Never ??? Sexual activity: Not on file Other Topics Concern ??? Not on file Social History Narrative ??? Not on file Social Determinants of Health Financial Resource Strain: Not on file Food Insecurity: Not on file Transportation Needs: Not on file Stress: Not on file Housing Stability: Not on file Depression: Patient Health Questionnaire 01/19/2023 Little Interest? 0 Feeling Down? 0 Subjective: Review of Systems Constitutional: Negative for chills and fever. HENT: Negative for congestion and sinus pain. Respiratory: Negative for cough. Cardiovascular: Negative for chest pain. Gastrointestinal: Negative for abdominal pain, constipation, diarrhea, nausea and vomiting. Psychiatric/Behavioral: The patient is nervous/anxious and has insomnia. OBJECTIVE: Vital signs: Vitals: 01/19/23 0740 BP: 110/80 Pulse: 78 Resp: 18 Temp: 97.8 ??F (36.6 ??C) SpO2: 98% Weight: 95.3 kg (210 lb) Height: 1.778 m (5' 10 ) Height: 177.8 cm (5' 10 ) Body mass index is 30.13 kg/m??. Physical Exam: Physical Exam Vitals reviewed. HENT: Head: Normocephalic. Right Ear: Tympanic membrane, ear canal and external ear normal. Left Ear: Tympanic membrane, ear canal and external ear normal. Nose: Nose normal. Mouth/Throat: Mouth: Mucous membranes are moist. Eyes: Extraocular Movements: Extraocular movements intact. Conjunctiva/sclera: Conjunctivae normal. Pupils: Pupils are equal, round, and reactive to light. Cardiovascular: Rate and Rhythm: Normal rate and regular rhythm. Pulses: Normal pulses. Heart sounds: Normal heart sounds. Pulmonary: Effort: Pulmonary effort is normal. Breath sounds: Normal breath sounds. Musculoskeletal: Cervical back: Normal range of motion and neck supple. Skin: General: Skin is warm and dry. Neurological: General: No focal deficit present. Mental Status: She is alert. Psychiatric: Mood and Affect: Mood normal. Thought Content: Thought content normal. Today's in Office Labs: No results found for this visit on 01/19/23. ASSESSMENT/PLAN 1. Anxiety (Primary) Will taper off Effexor. Take 1 cap QOD x 14 days, then start Paxil. Continue lorazepam as needed. Follow up in 1 month. - venlafaxine XR 24hr (Effexor XR) 37.5 MG capsule; Take 1 capsule every other day x 2 weeks. - PARoxetine (Paxil) 10 MG tablet; Take 1 (one) tablet by mouth once daily - LORazepam (Ativan) 0.5 MG tablet; Take 1 (one) tablet by mouth at bedtime 2. Sleep disturbance Will increase Topamax to 50 mg daily Follow up in 1 month. - topiramate (Topamax) 50 MG tablet; Take 1 (one) tablet by mouth at bedtime - LORazepam (Ativan) 0.5 MG tablet; Take 1 (one) tablet by mouth at bedtime 3. Atypical mole Will refer to [facility] for eval and intervention. Likely nee punch BX. Other: Continue current supplements and medications for improving/stable chronic medical conditions. Patient was encouraged to call immediately for any concerns or problems. No follow-ups on file. Final Medications: Outpatient Encounter Medications as of 01/19/2023 Medication Sig Dispense Refill ??? Ascorbic Acid [...] (Gas-X) 125 MG capsule ??? topiramate (Topamax) 25 MG tablet Take 1 (one) tablet by mouth at bedtime 30 tablet 1 ??? valACYclovir (Valtrex) 500 MG tablet Take 1 (one) tablet by mouth 3 times daily (Patient takingdifferently: Take 1 (one) tablet by mouth 3 times daily as needed) 30 tablet 0 ??? venlafaxine XR 24hr (Effexor XR) 37.5 MG capsule Take 1 (one) capsule by mouth once daily 30 capsule 1 No facility-administered encounter medications on file as of 01/19/2023. @SIGNATURE@ YANET Langston 01/19/2023 8:10 AM documented in this encounter Plan of Treatment Not on file documented as of this encounter Visit Diagnoses Diagnosis Anxiety- Primary Anxiety state, unspecified Sleep disturbance Sleep disturbance, unspecified Atypical mole Benign neoplasm of skin, site unspecified documented in this encounter Care Teams Records Tech Relationship Specialty Start Date End Date Ton Hernandez APRN-CNP [address] [place] [address] PCP - General Nurse Practitioner 05/12/22 documented as of this encounter
--- OUTSIDE RECORDS SUMMARY | 2024-08-18 10:03 | XMS_ITS | Encounter Summary ---
Author Organization [facility] Address [address] [place] [address] Care Team Providers Care Crop Grain Or Livestock Farm Manager Name Role Phone Ton Hernandez Primary Care Provider + Encounter Details Date Type Department Care Team (Latest Contact Info) Description 10/02/2022 2:59 PM LITERACY COORDINATOR - 10/02/2022 11:59 PM LITERACY COORDINATOR Hospital Encounter [facility] - Laboratory [address] [place] [address] Ton Hernandez APRN-CNP [address] [place] [address] Discharge Disposition: Home or Self [...] Coronavirus/COVID-19? No / Unsure 10/02/2022 2:58 PM LITERACY COORDINATOR documented as of this encounter Medications at [...] MG capsule Take by mouth as needed citalopram (CeleXA) 10 MG tabletIndications:Anxie ty Take 0.5 (one-half) tablet by mouth once daily 30 tablet 1 10/02/2022 10/23/2022 ibuprofen (Motrin) 600 MG tablet every 6 hours as needed 05/20/2022 04/07/2024 Loperamide (Imodium) 2 MG tablet Take 1 (one) tablet by mouth 4 times daily as needed for Diarrhea 11/20/2023 LORazepam (Ativan) 0.5 MG tabletIndications:Anxie ty Take 1 (one) tablet by mouth at bedtime 30 tablet 06/07/2022 11/02/2022 Multiple Vitamins-Minerals (ZINC PO) Take 1 tablet by mouth once daily 04/07/2024 valACYclovir (Valtrex) 500 MG tablet Take 1 (one) tablet by mouth 3 times daily 30 tablet 10/02/2022 04/07/2024 documented as of this encounter Plan of Treatment Not on file documented as of this encounter Procedures Procedure Name Priority Date/Time Associated Diagnosis Comments PROLACTIN Routine 10/02/2022 3:01 PM LITERACY COORDINATOR Perimenopausal ESTROGEN TOTAL Routine 10/02/2022 3:01 PM LITERACY COORDINATOR Perimenopausal FSH + LH PANEL Routine 10/02/2022 3:01 PM LITERACY COORDINATOR Perimenopausal TSH Routine 10/02/2022 3:01 PM LITERACY COORDINATOR Perimenopausal documented in this encounter Results * PROLACTIN (10/02/2022 3:01 PM LITERACY COORDINATOR) Prolactin 9.7 4.8 - 23.3 ng/mL 10/04/2022 8:10 AM LITERACY COORDINATOR [facility] Blood BLOOD SPECIMEN / Unknown Lab Venipuncture / Unknown 10/02/2022 3:01 PM LITERACY COORDINATOR 10/02/2022 3:01 PM LITERACY COORDINATOR Narrative [facility]) - 10/04/2022 8:10 AM LITERACY COORDINATOR Performed at: ??01 - [facility] [address] [place], [place] ??[id number] Pharmaceutical Scientist: Puneet Trujillo PhD, Phone: ??[phone] Ton Hernandez SALES AND OPERATIONS TRAINEE-FAST FOOD SHIFT LEAD LAB - CHEMISTRY ORDERABLES [facility] ([facility]) [address] [place] [address] * ESTROGEN TOTAL (10/02/2022 3:01 PM LITERACY COORDINATOR) Estrogen Total 129 pg/mL 10/06/2022 9:06 PM LITERACY COORDINATOR [facility] Comment: ? Prepubertal ? < 40 ? Female Cycle: ? 1-10 Days ? 16 - 328 ? 11-20 Days ?34 - 501 ? 21-30 Days ?48 - 350 ? Post-Menopausal ?? 40 - 244 Blood BLOOD SPECIMEN / Unknown Lab Venipuncture / Unknown 10/02/2022 3:01 PM LITERACY COORDINATOR 10/02/2022 3:01 PM LITERACY COORDINATOR Narrative [facility]) - 10/06/2022 9:06 PM LITERACY COORDINATOR Performed at: ??01 - [facility] ??[id number] Pharmaceutical Scientist: Skyler Milligan MD, Phone: ??[phone] Ton Hernandez SALES AND OPERATIONS TRAINEE-FAST FOOD SHIFT LEAD LAB - CHEMISTRY ORDERABLES Performing Organization Address City/[facility]/ZIP Co de Phone Number [facility] ([facility]) [address] [place] [address] * TSH (10/02/2022 3:01 PM LITERACY COORDINATOR) TSH 1.000 0.465 - 4.680 mIU/mL 10/02/2022 4:39 PM LITERACY COORDINATOR [facility] ([facility]) Blood BLOOD SPECIMEN / Unknown Lab Venipuncture / Unknown 10/02/2022 3:01 PM LITERACY COORDINATOR 10/02/2022 3:01 PM LITERACY COORDINATOR Ton Hernandez APRN-FAST FOOD SHIFT LEAD LAB - CHEMISTRY ORDERABLES Performing Organization Address [facility] Co de Phone Number [facility] ([facility]) [address] [place] [address] * FSH + LH PANEL (10/02/2022 3:01 PM LITERACY COORDINATOR) Pathologist [facility] LH 5.4 mIU/mL 10/04/2022 8:10 AM LITERACY COORDINATOR [facility]) Comment: ?Adult Female: ?Follicular phase ?2.4 - ??12.6 ?Ovulation phase ?14.0 - ??95.6 ?Luteal phase ?1.0 - ??11.4 ?Postmenopausal ?7.7 - ??58.5 FSH 7.8 mIU/mL 10/04/2022 8:10 AM LITERACY COORDINATOR [facility]) Comment: ?Adult Female: ?Follicular phase ?3.5 - ??12.5 ?Ovulation phase ? 4.7 - ??21.5 ?Luteal phase ?1.7 - ?? 7.7 ?Postmenopausal ? 25.8 - 134.8 Blood BLOOD SPECIMEN / Unknown Lab Venipuncture / Unknown 10/02/2022 3:01 PM LITERACY COORDINATOR 10/02/2022 3:01 PM LITERACY COORDINATOR Narrative [facility]) - 10/04/2022 8:10 AM LITERACY COORDINATOR Performed at: ??01 - [facility] [address] [place], [place] ??[id number] Pharmaceutical Scientist: Puneet Trujillo PhD, Phone: ??[phone] Ton [facility] LAB - CHEMISTRY ORDERABLES Performing Organization Address City/State/[facility] Co de Phone Number [facility] ([facility]) [address] [place] [address] documented in this encounter Visit Diagnoses Diagnosis Perimenopausal Symptomatic menopausal or female climacteric states documented in this encounter Care Teams Crop Grain Or Livestock Farm Manager Relationship Specialty Start Date End Date Ton Hernandez APRN-CNP [address] [place] [address] PCP - General Nurse Practitioner 05/12/22 documented as of this encounter
--- OUTSIDE RECORDS SUMMARY | 2024-08-18 10:03 | XMS_ITS | Encounter Summary ---
Author Organization [facility] Address [address] [place] [address] Care Team Providers Care Lighting Specialist Name Role Phone Ton Hernandez Primary Care Provider + Reason for Visit * Reason Comments Anxiety Encounter Details Date Type Department Care Team ([facility] st Contact Info) Description 10/23/2022 10:00 AM ARCHITECTURAL RENDERER Office Visit [facility] Medicine [address] [place] [address] Ton Hernandez APRN-CNP [address] [place] [address] Anxiety (Primary Dx) Social History Tobacco Use Types Packs/Day Years Used Date Smoking Tobacco: Never Smokeless Tobacco: Never Alcohol Use Standard Drinks/Week Comments Not Currently 0 (1 standard drink = 0.6 oz pur e alcohol) PHQ-2 Answer Date Recorded PHQ2 TOTAL SCORE 2 10/23/2022 Sex and Gender Information Value Date Recorded Sex Assigned at Not on file Gender Identity Not on file Sexual Orientation Not on file COVID-19 Exposure Response Date Recorded In the last 10 days, have yo u been in contact with someone who was confirmed or suspected to have Coronavirus/COVID-19? No / Unsure 10/02/2022 2:58 PM ARCHITECTURAL RENDERER documented as of this encounter Last Filed Vital Signs Vital Sign Reading Time Taken Comments Blood Pressure 118/76 10/23/2022 10:07 AM ARCHITECTURAL RENDERER Pulse 78 10/23/2022 10:07 AM ARCHITECTURAL RENDERER Temperature 36.4 ??C (97.5 ??F) 10/23/2022 10:[address] Respiratory Rate 18 10/23/2022 10:07 AM ARCHITECTURAL RENDERER Oxygen Saturation 96% 10/23/2022 10:07 AM ARCHITECTURAL RENDERER Inhaled Oxygen Concentration - - Weight 93.4 kg (206 lb) 10/23/2022 10:07 AM ARCHITECTURAL RENDERER Height 177.8 cm (5' 10 ) 10/23/2022 10:07 AM ARCHITECTURAL RENDERER Body Mass Index 29.56 10/23/2022 10:07 AM ARCHITECTURAL RENDERER documented in this encounter Progress Notes * Ton Hernandez APRN-CNP - 10/23/2022 10:54 AM CST 10/23/2022 PCP: YANET Langston CC: Chief Complaint Patient presents with ??? Anxiety . HPI: Belem Coto is a 51 year old female presents today for anxiety and depression follow up. States after starting the celexa, she feels more depressed. States I was not feeling depressed before, mostly anxious. Inquires if she could possibly have ADHD. States she cannot focus to read, and sitdown to watch a movie. States I am fast forwarding because I need to know what is going on. I fidget a lot as well. My even comments on like my leg twitching or fidgety things I may not even realize I am doing it. Im not sure if it is anxiety or ADHD. Outpatient Medications Prior to Visit Medication Sig [...] 1 ??? ibuprofen (Motrin) 600 MG tablet (Patient not taking: Reported on 10/23/2022) ??? Loperamide (Imodium) 2 MG tablet Take 1 (one) tablet by mouth 4 times daily as needed for Diarrhea ??? LORazepam (Ativan) 0.5 MG tablet Take 1 (one) tablet by mouth at bedtime (Patient not taking: Reported on 10/23/2022) 30 tablet 0 ??? LYSINE PO Take [...] prior to visit. Depression: Patient Health Questionnaire 10/23/2022 [place]? 1 Feeling Down? 1 Past Medical History: Diagnosis Date ??? Anal [...] Neurological: Negative for dizziness and headaches. Psychiatric/Behavioral: Positive for depression. The patient is nervous/anxious. Exam: BP 118/76 (BP SITE: LEFT ARM, BP POSITION: SITTING, BP CUFF SIZE: 11) Pulse 78 Temp 97.5 ??F (36.4 ??C) (Temporal) Resp 18 Ht 1.778 m (5' 10 ) Wt 93.4 kg (206 lb) SpO2 96% BMI 29.56 kg/m?? Physical Exam Constitutional: Appearance: Normal appearance. [...] No results found for this visit on 10/23/22. Plan Impression: 1. Anxiety (Primary) Will stop Celexa and start Wellbutrin 100 mg daily x 1 week then increase to 100 mg BID. Follow up in 3 weeks. - buPROPion (Wellbutrin) 100 MG tablet; Take 1 (one) tablet by mouth 2 times daily Start 100 mg daily x 1 week, then increase to twice a day dosing. Treatment: Orders Placed This Encounter ??? buPROPion (Wellbutrin) 100 MG tablet Sig: Take 1 (one) tablet by mouth 2 times daily Start 100 mg daily x 1 week, then increase to twicea day dosing. Dispense: 60 tablet Refill: 1 There are no Patient Instructions on file for this visit. Medications Discontinued During This Encounter Medication Reason ??? citalopram (CeleXA) 10 MG tablet Yes Pharm/AVS Current Outpatient Medications Medication Sig Dispense Refill ??? Ascorbic Acid 1000 MG Take 1 (one) tablet by mouth at bedtime ??? Biotin 1000 MCG CHEW Take 1 capsule by mouth once daily ??? buPROPion (Wellbutrin) 100 MG tablet Take 1 (one) tablet by mouth 2 times daily Start 100 mg daily x 1 week, then increase to twice a day dosing. 60 tablet 1 ??? Cholecalciferol 50 MCG (2000 UT) Take 2,000 Units by mouth at bedtime ??? ibuprofen (Motrin) 600 MG tablet (Patient not taking: Reported on 10/23/2022) ??? Loperamide (Imodium) 2 MG tablet Take 1 (one) tablet by mouth 4 times daily as needed for Diarrhea ??? LORazepam (Ativan) 0.5 MG tablet Take 1 (one) tablet by mouth at bedtime (Patient not taking: Reported on 10/23/2022) 30 tablet 0 ??? LYSINE PO Take [...] : No follow-ups on file. YANET Langston ITECTURAL RENDERER documented in this encounter Plan of Treatment Not on file documented as of this encounter Visit Diagnoses Diagnosis Anxiety- Primary Anxiety state, unspecified documented in this encounter Care Teams Lighting Specialist Relationship Specialty Start Date End Date Ton Hernandez APRN-CNP [address] [place] [phone] PCP - General Nurse Practitioner 05/12/22 documented as of this encounter
--- OUTSIDE RECORDS SUMMARY | 2024-08-18 10:03 | XMS_ITS | Encounter Summary ---
Author Organization [facility] Address [address] [place] [address] Care Team Providers Care Twisting Department End Finder Name Role Phone Ton Locke Primary Care Provider + Reason for Visit * Radiology Services (Routine) - Closed Specialty Diagnoses / Procedures Referred By Cecy t Referred To Contact Medical Imaging Diagnoses Screening mammogram, encounter for Procedures MAMMO SCREEN BILATERAL Ton Locke APRN-CNP [address] [place] [address] [facility] Radiology [address] [place] [address] Referral ID Status Reason Start Date Expiration Date Visits Re quested Visits Authorized [id number] Closed 05/12/2022 05/12/2023 1 1 Encounter Details Date Type Department Care Team (Latest Contact Info) Description 05/16/2022 8:55 AM CDT Hospital Encounter [facility] - Mammography [address] [place] [address] Ton Locke APRN-CNP [address] [place] [address] Discharge Disposition: Home or Self [...] AM CDT documented as of this encounter Medications at Time of Discharge Medication Sig Dispensed Refills Start Date End Date Biotin 1000 MCG CHEW Take 1 capsule by mouth once daily LYSINE PO Take 1 tablet by mouth once daily Multiple Vitamin (MULTIVITAMIN ADULT PO) Take 1 capsule by mouth once daily Multiple Vitamins-Minerals (ZINC PO) Take 1 tablet by mouth once daily 04/07/2024 documented as of this encounter Plan of Treatment Not on file documented as of this encounter Procedures Procedure Name Priority Date/Time Associated Diagnosis Comments MAMMO BILAT SCREENING Routine 05/16/2022 9:31 AM CDT Screening mammogram, encounter for documented in this encounter Results * MAMMO SCREEN BILATERAL (05/16/2022 9:31 AM CDT) Anatomical Region Laterality Modality Breast Bilateral Mammography 05/16/2022 9:06 AM CDT Impressions 05/23/2022 7:27 PM CDT IMPRESSION: BI-RAD 1 NEGATIVE There is no mammographic evidence of malignancy. A 1 year screening mammogram is recommended. ?? A letter will be sent to the patient with these results. The patient will be entered into a reminder system with a target due date of 1 year for her next screening exam. Electronically signed by: Len Rodriguez M.D. ? ll/penrad:05/23/2022 19:27:23 ?? Amphibian Crewmember(s): Zuly ??RT. AneudyR.CT., [facility] letter sent: Normal Exam ?? Reading location: [place] BI-RADS: 1 Negative Narrative 05/23/2022 7:27 PM CDT FROM: [address] [address] PROCEDURE FOR: Belem Coto [address] [place] [address] Home: PID#: [id number] Soc Sec#: [id number] Exam#: [id number] : 1970 Age: 51 TO: OTN LOCKE #[id number] - MAMMO BILAT SCREENING BILATERAL DIGITAL SCREENING MAMMOGRAM WITH MEDIOLATERAL OBLIQUE CRANIOCAUDAL: 05/16/2022 The study was acquired using digital technology and interpreted from soft copy . ?? CLINICAL: Routine screening. Patient has no complaints. No personal history of cancer. No family history of breast cancer. ?? COMPARISONS: Comparison is made to exams dated: ??09/05/2021 and 05/31/2020 [facility]. ?? BREAST TISSUE:There are scattered fibroglandular densities in both breasts. ?? FINDINGS: No significant masses, calcifications, or other findings are seen in either breast. ?? There has been no significant interval change. Procedure Note Len Rodriguez MD - 05/24/2022 FROM: [address] [address] PROCEDURE FOR: Belem Coto [address] [place] [address] Home: PID#: [id number] Soc Sec#: [id number] Exam#: [id number] : 1970 Age: 51 TO: TON LOCKE #[id number] - MAMMO BILAT SCREENING BILATERAL DIGITAL SCREENING MAMMOGRAM WITH MEDIOLATERAL OBLIQUE CRANIOCAUDAL: 05/16/2022 The study was acquired using digital technology and interpreted from soft copy . CLINICAL: Routine screening. Patient has no complaints. No personal history of cancer. No family history of breast cancer. COMPARISONS: Comparison is made to exams dated: 09/05/2021 and 05/31/2020 [facility]. BREAST TISSUE:There are scattered fibroglandular densities [...] next screening exam. Electronically signed by: Len pryor/lissette:05/23/2022 19:27:23 Amphibian Crewmember(s): RT.R.CT. Lilia, [facility] letter sent: Normal Exam Reading location: [facility] BI-RADS: 1 Negative Ton David [facility] MAMMO ORDERABLES documented in this encounter Visit Diagnoses Diagnosis Screening mammogram, encounter for documented in this encounter Care Teams Twisting Department End Finder Relationship Specialty Start Date End Date Ton Locke APRN-CNP [address] [place] [address] PCP - General Nurse Practitioner 05/12/22 documented as of this encounter
--- OUTSIDE RECORDS SUMMARY | 2024-08-18 10:03 | XMS_ITS | Encounter Summary ---
Author Organization [facility] Address [address] [place] [address] Care Team Providers Care Software Quality Specialist Name Role Phone Ton Hernandez Primary Care Provider + Encounter Details Date Type Department Care Team (Latest Contact Info) Description 05/12/2022 10:24 AM CDT - 05/12/2022 11:59 PM CDT Hospital Encounter [facility] - Laboratory [address] [place] [address] Ton Hernandez APRN-CNP [address] [place] [address] Discharge Disposition: Home or Self [...] daily 04/07/2024 documented as of this encounter Progress Notes * Ton Hernandez APRN-CNP - 05/12/2022 11:59 PM CDT Please let pt know labs that we have returned lipids, CBC and screening tests are normal. We had a problem with the cmp and will need to redraw. Please ask to come in at her convenience. documented in this encounter Plan of Treatment Not on file documented as of this encounter Procedures Procedure Name Priority Date/Time Associated Diagnosis Comments CBC W AUTO DIFFERENTIAL Routine 05/12/2022 10:25 AM CDT Laboratory examination ordered as part of a routine general medical examination TSH Routine 05/12/2022 10:25 AM CDT Screening for thyroid disorder LIPID PROFILE Routine 05/12/2022 10:25 AM CDT Lipid screening documented in this encounter Results * TSH (05/12/2022 10:25 AM CDT) TSH 0.777 0.465 - 4.680 mIU/mL 05/13/2022 11:47 AM CDT [facility] ([facility]) Blood BLOOD SPECIMEN / Unknown Lab Venipuncture / Unknown 05/12/2022 10:25 AM CDT 05/13/2022 10:37 AM CDT Ton [facility] - CHEMISTRY ORDERABLES [facility] ([facility]) [address] [place] [address] * CBC WITH DIFFERENTIAL (05/12/2022 10:25 AM CDT) WBC 6.8 4.0 - 10.0 K/uL 05/13/2022 10:59 AM CDT [facility] ([facility]) RBC 4.6 3.9 - 5.1 M/ul 05/13/2022 10:59 AM CDT [facility] ([facility]) Hemoglobin 14.3 12.0 - 15.0 g/dL 05/13/2022 10:59 AM CDT [facility] ([facility]) Hematocrit 41.6 37.0 - 45.0 % 05/13/2022 10:59 AM T [facility] ([facility]) MCV 88.9 82.0 - 101.0 fL 05/13/2022 10:59 AM T [facility] ([facility]) MCH 30.6 27.0 - 34.0 pg 05/13/2022 10:59 AM T [facility] ([facility]) MCHC 34.4 32.0 - 35.0 g/dL 05/13/2022 10:59 AM T [facility] ([facility]) RDW-CV 12.0 11.4 - 14.6 % 05/13/2022 10:59 AM T [facility] ([facility]) Platelet Count 352 120 - 410 K/uL 05/13/2022 10:59 AM T [facility] ([facility]) MPV 10.7 5.2 - 12.8 fL 05/13/2022 10:59 AM T [facility] ([facility]) Neutrophils % 59.5 25.0 - 78.0 % 05/13/2022 10:59 AM T [facility] ([facility]) Lymphocytes % 31.8 10.0 - 50.0 % 05/13/2022 10:59 AM T [facility] ([facility]) Monocytes % 6.0 0.0 - 11.0 % 05/13/2022 10:59 AM T [facility] ([facility]) Eosinophils % 2.1 0.0 - 3.0 % 05/13/2022 10:59 AM T [facility] ([facility]) Basophils % 0.6 0.0 - 1.5 % 05/13/2022 10:59 AM T [facility] ([facility]) Neutrophil Absolute 4.1 2.0 - 6.9 K/uL 05/13/2022 10:59 AM T [facility] ([facility]) Lymphocyte Absolute 2.2 0.6 - 4.6 K/uL 05/13/2022 10:59 AM T [facility] ([facility]) Monocyte Absolute 0.4 0.0 - 0.9 K/uL 05/13/2022 10:59 AM T [facility] ([facility]) Eosinophil Absolute 0.1 0.0 - 0.7 K/uL 05/13/2022 10:59 AM CDT [facility] ([facility]) Basophil Absolute 0.0 0.0 - 0.2 K/uL 05/13/2022 10:59 AM CDT [facility] ([facility]) Immature Granulocytes % 0.0 0.0 - 0.5 % 05/13/2022 10:59 AM CDT [facility] ([facility]) Immature Granulocytes Absolute 0.00 0.00 - 0.03 K/UL 05/13/2022 10:59 AM CDT [facility] ([facility]) Blood BLOOD SPECIMEN / Unknown Lab Venipuncture / Unknown 05/12/2022 10:25 AM CDT 05/13/2022 10:14 AM CDT Ton Hernandez HYDRAULIC GOVERNOR ASSEMBLER-[employer] [facility] - HEMATOLOGY ORDERABLES Performing Organization Address City/State/[facility] Co de Phone Number [facility] ([facility]) [address] [place] [address] * LIPID PROFILE (05/12/2022 10:25 AM CDT) Cholesterol 153 110 - 200 mg/dL 05/12/2022 11:47 AM CDT [facility] ([facility]) Triglycerides 112 40 - 150 mg/dL 05/12/2022 11:47 AM T [facility] ([facility]) HDL 55 40 - 60 mg/dL 05/12/2022 11:47 AM T [facility] ([facility]) LDL Direct 51 0 - 99 mg/dL 05/12/2022 11:47 AM CDT [facility] ([facility]) VLDL 22 0 - 40 mg/dL 05/12/2022 11:47 AM T [facility] ([facility]) CHOL/HDL RATIO 3.00 0.00 - 4.98 05/12/2022 11:47 AM CDT [facility] ([facility]) Blood BLOOD SPECIMEN / Unknown Lab Venipuncture / Unknown 05/12/2022 10:25 AM CDT 05/12/2022 10:25 AM CDT Ton [facility] - CHEMISTRY ORDERABLES [facility] ([facility]) [address] [place] [phone] documented in this encounter Visit Diagnoses Diagnosis Lipid screening Screening for lipoid disorders Laboratory examination ordered as part of a routine general medical examination Screening for thyroid disorder documented in this encounter Care Teams Software Quality Specialist Relationship Specialty Start Date End Date Ton Hernandez APRN-CNP [address] [place] [phone] PCP - General Nurse Practitioner 05/12/22 documented as of this encounter
--- OUTSIDE RECORDS SUMMARY | 2024-08-18 10:03 | XMS_ITS | Encounter Summary ---
Author Organization [facility] Address [address] [place] [address] Care Team Providers Care Elevator Service Technician Name Role Phone Ton Hernandez Primary Care Provider + Reason for Visit * Reason Onset Date Comments Procedure Prior Auth Request 01/19/2023 CO2 clinic Encounter Details Date Type Department Care Team ([facility] Contact Info) Description 01/19/2023 Telephone [facility] [address] [place] [address] Ton Hernandez APRN-CNP [address] [place] [address] Procedure Prior Auth Request (CO2 clinic) Social History Tobacco Use Types Packs/Day Years [...] encounter Miscellaneous Notes * Telephone Encounter - Shena Ace - 01/22/2023 9:46 AM CDT I have contacted Belem today. She is scheduled in the C02 laser clinic with Concetta Huynh for 02-01-2023 @ 8:30 a.m. The apt is blocked for 30 minutes. And Belem has confirmed all apt information. * Telephone Encounter - Martina Ca MA - 01/22/2023 9:05 AM CDT Went through [employer]. No prior Auth needed for CPT code 70322. Papers printed off to be scanned. Ready to schedule. * Telephone Encounter - Lolita Fierro RN - 01/19/2023 9:52 AM CDT Prior auth worksheet filled out for punch biopsy CPT 49601 DC D22.9. paperwork filled out and placed in folder * Telephone Encounter - Angela Santiago - 01/19/2023 8:55 AM CDT Need PA worksheet started for punch bx or lesion destruction with Concetta Huynh in the CO2 clinic. Seen by PCP on 01/19/23. Per patient if insurance denies procedure she would like to pay out of pocket. She is aware she will need to pay at the time of service. documented in this encounter Plan of Treatment Not on file documented as of this encounter Visit Diagnoses Not on filedocumented in this encounter Care Teams Elevator Service Technician Relationship Specialty Start Date End Date Ton Hernandez APRN-VIJI [address] [place] [address] PCP - General Nurse Practitioner 05/12/22 documented as of this encounter
--- OUTSIDE RECORDS SUMMARY | 2024-08-18 10:03 | XMS_ITS | Encounter Summary ---
Author Organization [facility] Address [address] [place] [address] Care Team Providers Care Cleat Maker Name Role Phone Ton Hernandez Primary Care Provider + Encounter Details Date Type Department Care Team (Latest Contact Info) Description 05/16/2022 Travel Social History Tobacco Use Types Packs/Day [...] on filedocumented in this encounter Care Teams Cleat Maker Relationship Specialty Start Date End Date Ton Hernandez APRN-CNP [address] [place] [address] PCP - General Nurse Practitioner 05/12/22 documented as of this encounter
--- OUTSIDE RECORDS SUMMARY | 2024-08-18 10:03 | XMS_ITS | Encounter Summary ---
Author Organization [facility] Address [address] [place] [address] Care Team Providers Care Patient Financial Services Specialist Name Role Phone Ton Hernandez Primary Care Provider + Reason for Visit * Reason Onset Date Comments Results 10/11/2022 Encounter Details Date Type Department Care Team ([facility] st Contact Info) Description 10/11/2022 Telephone [facility] [address] [place] [address] Ton Hernandez APRN-CNP [address] [place] [address] Results Social History Tobacco Use [...] Coronavirus/COVID-19? No / Unsure 10/02/2022 2:58 PM CHAIRMAN & CO FOUNDER documented as of this encounter Miscellaneous Notes * Telephone Encounter - Jaimee Day MA - 10/11/2022 1:50 PM CST Relayed provider's message to patient; voiced understanding. [employer] F[employer]ER * Telephone Encounter - Jaimee Day MA - 10/11/2022 1:50 PM CST ----- Message from YANET Hadley sent at 10/11/2022 1:32 PM CHAIRMAN [employer] FOUNDER ----- Please let pt know her labs are normal. She is likely in early/adriane- menopause based on reported symptoms. [employer] FOUNDER documented in this encounter Plan of Treatment Not on file documented as of this encounter Visit Diagnoses Not on filedocumented in this encounter Care Teams Patient Financial Services Specialist Relationship Specialty Start Date End Date Ton Hernandez APRN-CNP [address] [place] [address] PCP - General Nurse Practitioner 05/12/22 documented as of this encounter
--- OUTSIDE RECORDS SUMMARY | 2024-08-18 10:03 | XMS_ITS | Encounter Summary ---
Author Organization [facility] Address [address] [place] [address] Care Team Providers Care Forensic Nurse Name Role Phone Ton Hernandez Primary Care Provider + Reason for Visit * Reason Comments Anxiety Encounter Details Date Type Department Care Team ([facility] Contact Info) Description 06/07/2022 8:00 AM CDT Office Visit [facility] [address] [place] [address] Ton Hernandez APRN-CNP [address] [place] [address] Anxiety (Primary Dx) Social History Tobacco Use Types Packs/Day Years Used Date Smoking Tobacco: Never Smokeless Tobacco: Never PHQ-2 Answer Date Recorded PHQ2 TOTAL SCORE 0 06/07/2022 Sex and Gender Information Value Date Recorded Sex Assigned at Not on file Gender Identity Not on file Sexual Orientation Not on file COVID-19 Exposure Response Date Recorded In the last 10 days, have yo u been in contact with someone who was confirmed or suspected to have Coronavirus/COVID-19? No / Unsure 05/16/2022 8:55 AM CDT documented as of this encounter Last Filed Vital Signs Vital Sign Reading Time Taken Comments Blood Pressure 130/80 06/07/2022 8:15 AM CDT Pulse 83 06/07/2022 8:10 AM CDT Temperature 36.6 ??C (97.9 ??F) 06/07/2022 8:10 AM CD T Respiratory Rate 16 06/07/2022 8:10 AM CDT Oxygen Saturation 97% 06/07/2022 8:10 AM CDT Inhaled Oxygen Concentration - - Weight 92.7 kg (204 lb 6.4 oz) 06/07/2022 8:10 A M CDT Height 177.8 cm (5' 10 ) 06/07/2022 8:10 AM CDT Body Mass Index 29.33 06/07/2022 8:10 AM CDT documented in this encounter Progress Notes * Ton Hernandez APRN-CNP - 06/07/2022 8:21 AM CDT Images from the original note were not included. 06/07/2022 PCP: YANET Langston CC: Chief Complaint Patient presents with ??? Anxiety . HPI: Belem Coto is a 51 year old female presents today with complaints of anxiety. States after having colostomy reversal in April she had some further complications which has caused her to experience increased anxiety. States, I just keep worrying something else is going to go wrong, since Arlyn had so many problems already. Pt has used lorazepam in the past for acute anxiety, but has not needed it for some time. Would like to try a short script to get through this period. Outpatient Medications Prior to Visit Medication Sig Dispense Refill ??? acetaminophen (Tylenol) 500 MG capsule Take 1,000 mg by mouth every 8 hours ??? Ascorbic Acid 1000 MG Take 1,000 mg by mouth at bedtime ??? Biotin 1000 MCG CHEW Take 1 capsule by mouth once daily ??? Cholecalciferol 50 MCG (2000 UT) Take 2,000 Units by mouth at bedtime ??? ibuprofen (Motrin) 600 MG tablet ??? LYSINE PO Take 1 tablet by mouth once daily ??? Multiple Vitamin (MULTIVITAMIN ADULT PO) Take 1 capsule by mouth once daily ??? Multiple Vitamins-Minerals (ZINC PO) Take 1 tablet by mouth once daily ??? simethicone (Gas-X) 125 MG capsule No facility-administered medications prior to visit. Past Medical History: Diagnosis Date ??? Colostomy in place ([facility]) Past Surgical History: Procedure Laterality Date ??? Appendectomy 1977 ??? Colostomy 2019 ??? ENDOMETRIAL ABLATION 2010 ??? INTEROENTERIC/ENTEROCOLIC FISTULA CLOSURE 2019 vaginal rectal fistula 4 flap procedures ??? Lipectomy 2009 ??? OTHER SURGERY 05/18/2022 colostomy reversal Social History Tobacco Use Smoking Status Never Smoker Smokeless Tobacco Never Used Social History Substance and Sexual Activity Drug Use Not on file No Known Allergies No family history on file. Review of Systems: Review of Systems Constitutional: Negative for chills and fever. HENT: Negative for congestion, sinus pain and sore throat. Respiratory: Negative for cough and shortness of breath. Cardiovascular: Negative for chest pain, palpitations and leg swelling. Gastrointestinal: Positive for abdominal pain. Negative for constipation, diarrhea, nausea and vomiting. Genitourinary: Negative for dysuria. Neurological: Negative for dizziness and headaches. Exam: BP 130/80 (BP SITE: LEFT ARM, BP POSITION: SITTING, BP CUFF SIZE: 11) Pulse 83 Temp 97.9 ??F (36.6 ??C) Resp 16 Ht 1.778 m (5' 10 ) Wt 92.7 kg (204 lb 6.4 oz) SpO2 97% BMI 29.33 kg/m?? Physical Exam Vitals reviewed. Constitutional: Appearance: Normal appearance. HENT: Head: Normocephalic and atraumatic. Right Ear: Tympanic membrane, ear canal and external ear normal. Left Ear: Tympanic membrane, ear canal and external ear normal. Nose: Nose normal. Mouth/Throat: Pharynx: Oropharynx is clear. Eyes: Conjunctiva/sclera: Conjunctivae normal. Pupils: Pupils are equal, round, and reactive to light. Cardiovascular: Rate and Rhythm: Normal rate and regular rhythm. Pulses: Normal pulses. Heart sounds: Normal heart sounds. Pulmonary: Effort: Pulmonary effort is normal. Breath sounds: Normal breath sounds. Abdominal: General: Abdomen is flat. Bowel sounds are normal. Musculoskeletal: General: Normal range of motion. Cervical back: Normal range of motion. Skin: General: Skin is warm and dry. Neurological: General: No focal deficit present. Mental Status: She is alert and oriented to person, place, and time. Psychiatric: Mood and Affect: Mood normal. No results found for this visit on 06/07/22. Plan Impression: 1. Anxiety (Primary) Will give 0.5 mg lorazepam QHS prn for anxiety. Follow up in 1 month. Sooner if needed. Treatment: No orders of the defined types were placed in this encounter. There are no Patient Instructions on file for this visit. There are no discontinued medications. Current Outpatient Medications Medication Sig Dispense Refill ??? acetaminophen (Tylenol) 500 MG capsule Take 1,000 mg by mouth every 8 hours ??? Ascorbic Acid 1000 MG Take 1,000 mg by mouth at bedtime ??? Biotin 1000 MCG CHEW Take 1 capsule by mouth once daily ??? Cholecalciferol 50 MCG (2000 UT) Take 2,000 Units by mouth at bedtime ??? ibuprofen (Motrin) 600 MG tablet ??? LYSINE PO Take 1 tablet by mouth once daily ??? Multiple Vitamin (MULTIVITAMIN ADULT PO) Take 1 capsule by mouth once daily ??? Multiple Vitamins-Minerals (ZINC PO) Take 1 tablet by mouth once daily ??? simethicone (Gas-X) 125 MG capsule No current facility-administered medications for this visit. Follow up : No follow-ups on file. YANET Langston documented in this encounter Plan of Treatment Not on file documented as of this encounter Visit Diagnoses Diagnosis Anxiety- Primary Anxiety state, unspecified documented in this encounter Care Teams Forensic Nurse Relationship Specialty Start Date End Date Ton Hernandez APRN-CNP [address] [place] [phone] PCP - General Nurse Practitioner 05/12/22 documented as of this encounter
--- OUTSIDE RECORDS SUMMARY | 2024-08-18 10:03 | XMS_ITS | Encounter Summary ---
Author Organization [facility] Address [address] [place] [address] Care Team Providers Care Nut Culler Name Role Phone Ton Hernandez Primary Care Provider + Reason for Visit * Reason Comments Follow-up medication Encounter Details Date Type Department Care Team ([facility] st Contact Info) Description 11/13/2022 8:30 AM CDT Office Visit [facility] [address] [place] [address] Ton Hernandez APRN-CNP [address] [place] [address] Anxiety (Primary Dx); Sleep disturbance Social History Tobacco Use Types [...] Sign Reading Time Taken Comments Blood Pressure 122/80 11/13/2022 8:31 AM CDT Pulse 85 11/13/2022 8:31 AM CDT Temperature 36.4 ??C (97.5 ??F) 11/13/2022 8:31 AM CD T Respiratory Rate 16 11/13/2022 8:31 AM CDT Oxygen Saturation 99% 11/13/2022 8:31 AM CDT Inhaled Oxygen Concentration - - Weight 94.7 kg (208 lb 12.8 oz) 11/13/2022 8:31 AM CDT Height 177.8 cm (5' 10 ) 11/13/2022 8:31 AM CDT Body Mass Index 29.96 11/13/2022 8:31 AM CDT documented in this encounter Progress Notes * Ton Hernandez, PHARMACY INNOVATION ASSISTANT-REGIONAL PROJECT MANAGER - 11/13/2022 9:15 AM CDT Belem Coto 1970 51 year old DOS 11/13/2022 Chief Complaint Patient presents with ??? Follow-up medication HPI: Current Medications: Encounter Diagnoses Name Primary? Anxiety Yes ??? Sleep disturbance Current Outpatient Medications Medication ??? Ascorbic Acid 1000 MG ??? Biotin 1000 MCG CHEW ??? buPROPion (Wellbutrin) 100 MG tablet ??? Cholecalciferol 50 MCG (2000 UT) ??? ibuprofen (Motrin) 600 MG tablet ??? Loperamide (Imodium) 2 MG tablet ??? LORazepam (Ativan) 0.5 MG tablet ??? LYSINE PO ??? Multiple Vitamin (MULTIVITAMIN ADULT PO) ??? Multiple Vitamins-Minerals (ZINC PO) ??? simethicone (Gas-X) 125 MG capsule ??? valACYclovir (Valtrex) 500 MG tablet No current [...] Not on file Depression: Patient Health Questionnaire 11/13/2022 [place]? 0 Feeling Down? 0 Subjective: Review of Systems Constitutional: Negative for chills and fever. HENT: Negative for congestion, ear pain, sinus pain and sore throat. Respiratory: Negative for cough and shortness of breath. Cardiovascular: Negative for chest pain, palpitations and leg swelling. Gastrointestinal: Negative for abdominal pain, constipation, diarrhea, nausea and vomiting. Genitourinary: Negative for dysuria. Incontinence leakage of stool and urine intermittently. Musculoskeletal: Negative for back pain, joint pain and neck pain. Skin: Negative for rash. Neurological: Negative for dizziness and headaches. Psychiatric/Behavioral: Negative for depression. The patient is nervous/anxious and has insomnia. Stress and sleep disturbance. OBJECTIVE: Vital signs: Vitals: 11/13/22 0831 BP: 122/80 Pulse: 85 Resp: 16 Temp: 97.5 ??F (36.4 ??C) SpO2: 99% Weight: 94.7 kg (208 lb 12.8 oz) Height: 1.778 m (5' 10 ) Height: 177.8 cm (5' 10 ) Body mass index is 29.96 kg/m??. Physical Exam: Physical Exam Vitals reviewed. [...] No results found for this visit on 11/13/22. ASSESSMENT/PLAN 1. Anxiety (Primary) Continue medication as prescribed. Wellbutrin 100 mg BID. And lorazepam as needed. Follow up in 1 month. 2. Sleep disturbance Discussed good sleep hygiene, start melatonin nightly for sleep. Follow up in 1 month. Other: Continue current supplements and medications for improving/stable chronic medical conditions. Patient was encouraged to call immediately for any concerns or problems. No follow-ups on file. Final Medications: Outpatient Encounter Medications as of 11/13/2022 Medication Sig Dispense Refill ??? Ascorbic Acid [...] facility-administered encounter medications on file as of 11/13/2022. @[email or web address]@ YANET Langston 11/13/2022 10:28 AM documented in this encounter Plan of Treatment Not on file documented as of this encounter Visit Diagnoses Diagnosis Anxiety- Primary Anxiety state, unspecified Sleep disturbance Sleep disturbance, unspecified documented in this encounter Care Teams Nut Culler Relationship Specialty Start Date End Date Ton Hernandez APRN-CNP [address] [place] [address] PCP - General Nurse Practitioner 05/12/22 documented as of this encounter
--- OUTSIDE RECORDS SUMMARY | 2024-08-18 10:03 | XMS_ITS | Encounter Summary ---
Author Organization [facility] Address [address] [place] [place] [address] Care Team Providers Care Security Officer Name Role Phone Ton Hernandez Primary Care Provider + Reason for Visit * Reason Onset Date Comments Refill Request 12/14/2022 Pt forgot to ask Ton this morning at apt for a refill on the lorazepam medication. She will use [facility]. She only has three pills left of this medication. She is aware that Ton is out of the office this afternoon. Encounter Details Date Type Department Care Team (Late st Contact Info) Description 12/14/2022 Refill [facility] [address] [place] [address] Ton Hernandez APRN-CNP [address] [place] [address] Refill Request (Pt forgot to ask Ton this morning at apt for a refill on the lorazepam medication. She will use [facility]. She only has three pills left of this medication. She is aware that Ton is out of the office this afternoon. ) Social History Tobacco Use Types Packs/Day Years Used Date Smoking Tobacco: Never Smokeless Tobacco: Never Alcohol Use Standard Drinks/Week Comments Not Currently 0 (1 standard drink = 0.6 oz pur e alcohol) PHQ-2 Answer Date Recorded PHQ2 TOTAL SCORE 0 12/14/2022 Sex and Gender Information Value Date Recorded Sex Assigned at Not on file Gender Identity Not on file Sexual Orientation Not on file documented as of this encounter Miscellaneous Notes * Telephone Encounter - Sheila Garrido RN - 12/14/2022 1:08 PM CDT See previous. Med pended. * Telephone Encounter - Shena Ace - 12/14/2022 12:39 PM CDT Pt forgot to ask Ton this morning at apt for a refill on the lorazepam medication. She will use [facility]. She only has three pills left of this medication. She is aware that Ton is out of the office this afternoon. documented in this encounter Plan of Treatment Not on file documented as of this encounter Visit Diagnoses Diagnosis Anxiety Anxiety state, unspecified documented in this encounter Care Teams Security Officer Relationship Specialty Start Date End Date Ton Hernandez, JACK-VIJI [address] [place] [phone] PCP - General Nurse Practitioner 05/12/22 documented as of this encounter
--- OUTSIDE RECORDS SUMMARY | 2024-08-18 10:03 | XMS_ITS | Encounter Summary ---
Author Organization [facility] Address [address] [place] [address] Care Team Providers Care Form Coverer Name Role Phone Tno Hernandez Primary Care Provider + Reason for Visit * Reason Comments Follow-up Encounter Details Date Type Department Care Team ([facility] st Contact Info) Description 12/14/2022 8:00 AM CDT Office Visit [facility] [address] [place] [address] Ton Hernandez APRN-CNP [address] [place] [address] Anxiety (Primary Dx); Sleep disturbance [...] Sign Reading Time Taken Comments Blood Pressure 118/82 12/14/2022 8:10 AM CDT Pulse 82 12/14/2022 8:10 AM CDT Temperature 36.7 ??C (98 ??F) 12/14/2022 8:10 AM CDT Respiratory Rate 18 12/14/2022 8:10 AM CDT Oxygen Saturation 98% 12/14/2022 8:10 AM CDT Inhaled Oxygen Concentration - - Weight 97.9 kg (215 lb 12.8 oz) 12/14/2022 8:10 AM CDT Height 177.8 cm (5' 10 ) 12/14/2022 8:10 AM CDT Body Mass Index 30.96 12/14/2022 8:10 AM CDT documented in this encounter Patient Instructions * Patient Instructions* Ton Hernandez APRN-CNP - 12/14/2022 8:53 AM CDT Take 1/2 tab Wellbutrin BID x 2 weeks, and then 1/2 tab daily x 1 week then stop Start Effexor after decrease at 2 week ankit. Start Topamax QHS. documented in this encounter Progress Notes * Ton Hernandez APRN-CNP - 12/14/2022 8:11 AM CDT 12/14/2022 PCP: YANET Langston CC: Chief Complaint Patient presents with ??? Follow-up . HPI: Belem Coto is a 52 year old female presents today for anxiety and sleep disturbance follow up . Per pt she feels the Wellbutrin is causing her to overeat. States I sit down to eat and I can't stop. I think I had this side effect last time I took it. I would like to change medication if I can. Sleeping is still a problem. I took 2 lorazepam last night and still tossed and turned. I took topamax in the past to help with appetite and I feel like I did well with it. Would like to try again. Outpatient Medications Prior to Visit Medication Sig Dispense Refill ??? Ascorbic Acid 1000 MG Take 1 (one) tablet by mouth at bedtime ??? Biotin 1000 MCG CHEW Take 1 capsule by mouth once daily ??? buPROPion (Wellbutrin) 100 MG tablet Take 1 tablet twice a day 60 tablet 0 ??? Cholecalciferol 50 MCG (2000 UT) Take [...] prior to visit. Depression: Patient Health Questionnaire 12/14/2022 [place]? 0 Feeling Down? 0 Past [...] Status Never Smokeless Tobacco Never Vaping Use Vaping Status Never Used Social History Substance and Sexual [...] The patient is nervous/anxious and has insomnia. Exam: BP 118/82 (BP SITE: LEFT ARM, BP POSITION: SITTING, BP CUFF SIZE: 11) Pulse 82 Temp 98 ??F (36.7 ??C) (Temporal) Resp 18 Ht 1.778 m (5' 10 ) Wt 97.9 kg (215 lb 12.8 oz) SpO2 98% BMI 30.96 kg/m?? Physical Exam Constitutional: Appearance: Normal appearance. [...] No results found for this visit on 12/14/22. Plan Impression: 1. Anxiety (Primary) Will DC Wellbutrin, taper off, and start Effexor 37.5 mg daily Follow upin 1 month. 2. Sleep disturbance Will continue lorazepam as needed for anxiety and sleep. Start Topamax QHS for sleep and appetite control. Treatment: No orders of the defined types [...] buPROPion (Wellbutrin) 100 MG tablet Take 1 tablet twice a day 60 tablet 0 ??? Cholecalciferol 50 MCG (2000 UT) Take [...] unspecified documented in this encounter Care Teams Form Coverer Relationship Specialty Start Date End Date Ton Hernandez APRN-CNP [address] [place] [address] PCP - General Nurse Practitioner 05/12/22 documented as of this encounter
--- OUTSIDE RECORDS SUMMARY | 2024-08-18 10:03 | XMS_ITS | Encounter Summary ---
Author Organization [facility] Address [address] [place] [address] Care Team Providers Care Linotype Worker Name Role Phone Ton Hernandez Primary Care Provider + Encounter Details Date Type Department Care Team ([facility] st Contact Info) Description 12/02/2022 Orders Only [facility] [address] [place] [address] Ton Hernandez APRN-CNP [address] [place] [address] Social History Tobacco Use Types [...] on filedocumented in this encounter Care Teams Linotype Worker Relationship Specialty Start Date End Date Ton Hernandez APRN-CNP [address] [place] [address] PCP - General Nurse Practitioner 05/12/22 documented as of this encounter
--- OUTSIDE RECORDS SUMMARY | 2024-08-18 10:03 | XMS_ITS | Encounter Summary ---
Author Organization [facility] Address [address] [place] [address] Care Team Providers Care High School Combination Teacher Name Role Phone Ton Hernandez Primary Care Provider + Reason for Visit * Reason Onset Date Comments Results 05/24/2022 Encounter Details Date Type Department Care Team ([facility] st Contact Info) Description 05/24/2022 Telephone [facility] [address] [place] [address] Ton Hernandez APRN-CNP [address] [place] [address] Results Social History Tobacco Use [...] encounter Miscellaneous Notes * Telephone Encounter - Cyndee Valencia - 05/24/2022 11:33 AM CDT Patient called back relayed nurse's message she voiced understanding * Telephone Encounter - Connie Newton LPN - 05/24/2022 10:33 AM CDT Left message for patient to return call to clinic for mamogram results. * Telephone Encounter - Connie Newton LPN - 05/24/2022 10:33 AM CDT ----- Message from YANET Hadley sent at 05/24/2022 9:21 AM CDT ----- Please let pt know her mammo is normal. Repeat in 1 year. documented in this encounter Plan of Treatment Not on file documented as of this encounter Visit Diagnoses Not on filedocumented in this encounter Care Teams [employer] Combination Teacher Relationship Specialty Start Date End Date Ton Hernandez APRN-CNP [address] [place] [address] PCP - General Nurse Practitioner 05/12/22 documented as of this encounter
--- OUTSIDE RECORDS SUMMARY | 2024-08-18 10:03 | XMS_ITS | Encounter Summary ---
Author Organization [facility] Address [address] [place] [address] Care Team Providers Care Supply And Distribution Manager Name Role Phone Ton Hernandez Primary Care Provider + Reason for Visit * Reason Onset Date Comments MEDICATION REFILL 11/02/2022 Encounter Details Date Type Department Care Team ([facility] st Contact Info) Description 11/02/2022 Refill [facility] [address] [place] [address] Ton Hernandez APRN-CNP [address] [place] [address] MEDICATION REFILL Social History Tobacco [...] * Telephone Encounter - Dinora Wilder - 11/02/2022 2:07 PM CDT Pt has called requesting refill of medication, Ativan sent into [facility]. Pt refused to call pharmacy for refills and is pretty sure this is the medication she is needing. documented in this encounter Plan of Treatment Not on file documented as of this encounter Visit Diagnoses Diagnosis Anxiety Anxiety state, unspecified documented in this encounter Care Teams Supply And Distribution Manager Relationship Specialty Start Date End Date Ton Hernandez APRN-VIJI [address] [place] [phone] PCP - General Nurse Practitioner 05/12/22 documented as of this encounter
--- OUTSIDE RECORDS SUMMARY | 2024-08-18 10:03 | XMS_ITS | Encounter Summary ---
Author Organization [facility] Address [address] [place] [address] Care Team Providers Care Barrel Roller Operator Name Role Phone Ton Hernandez Primary Care Provider + Reason for Visit * Reason Onset Date Comments Request Lab Order 05/13/2022 Encounter Details Date Type Department Care Team ([facility] st Contact Info) Description 05/13/2022 Telephone [facility] [address] [place] [address] Ton Hernandez APRN-CNP [address] [place] [address] Request Lab Order Social History Tobacco Use Types Packs/Day Years Used Date Smoking Tobacco: Never Smokeless Tobacco: Never PHQ-2 Answer Date Recorded PHQ2 TOTAL SCORE 0 05/12/2022 Sex and Gender Information Value Date Recorded Sex Assigned at Not on file Gender Identity Not on file Sexual Orientation Not on file documented as of this encounter Miscellaneous Notes * Telephone Encounter - Connie Newton LPN - 05/13/2022 11:39 AM CDT I contacted the patient to let her know lab didn't draw enough blood for cmp and she is to have it drawn when she comes in today to give her urine sample documented in this encounter Plan of Treatment Not on file documented as of this encounter Visit Diagnoses Not on filedocumented in this encounter Care Teams Barrel Roller Operator Relationship Specialty Start Date End Date Ton Hernandez, JACK-VIJI [address] [place] [address] PCP - General Nurse Practitioner 05/12/22 documented as of this encounter
--- OUTSIDE RECORDS SUMMARY | 2024-08-18 10:03 | XMS_ITS | Encounter Summary ---
Author Organization [facility] Address [address] [place] [address] Care Team Providers Care Claim Administrator Name Role Phone Ton Hernandez Primary Care Provider + Encounter Details Date Type Department Care Team (Latest Contact Info) Description 10/02/2022 Travel Social History Tobacco Use Types Packs/Day [...] Coronavirus/COVID-19? No / Unsure 10/02/2022 2:58 PM CIGAR MAKER documented as of this encounter Plan of Treatment Not on file documented as of this encounter Visit Diagnoses Not on filedocumented in this encounter Care Teams Claim Administrator Relationship Specialty Start Date End Date Ton Hernandez APRN-CNP [address] [place] [address] PCP - General Nurse Practitioner 05/12/22 documented as of this encounter
--- OUTSIDE RECORDS SUMMARY | 2024-08-18 10:03 | XMS_ITS | Encounter Summary ---
Author Organization [facility] Address [address] [place] [address] Care Team Providers Care Stock Shaper Name Role Phone Ton Hernandez Primary Care Provider + Reason for Visit * Reason Onset Date Comments Results 05/15/2022 Encounter Details Date Type Department Care Team ([facility] st Contact Info) Description 05/15/2022 Telephone [facility] [address] [place] [address] Ton Hernandez APRN-CNP [address] [place] [address] Results Social History Tobacco Use [...] Telephone Encounter - Jaimee Day MA - 05/15/2022 10:37 AM CDT Relayed provider's message to patient's personal voicemail. * Telephone Encounter - Jaimee Day MA - 05/15/2022 10:37 AM CDT ----- Message from YANET Hadley sent at 05/13/2022 11:45 AM CDT ----- Please let pt know labs that we have returned lipids, CBC and screening tests are normal. We had a problem with the cmp and will need to redraw. Please ask to come in at her convenience. documented in this encounter Plan of Treatment Not on file documented as of this encounter Visit Diagnoses Not on filedocumented in this encounter Care Teams Stock Shaper Relationship Specialty Start Date End Date Ton Hernandez APRN-VIJI [address] [place] [phone] PCP - General Nurse Practitioner 05/12/22 documented as of this encounter
--- OUTSIDE RECORDS SUMMARY | 2024-08-18 10:03 | XMS_ITS | Encounter Summary ---
Author Organization [facility] Address [address] [place] [address] Care Team Providers Care Loan Servicing Officer Name Role Phone Ton Hernandez Primary Care Provider + Encounter Details Date Type Department Care Team (Latest Contact Info) Description 05/16/2022 8:56 AM CDT - 05/16/2022 11:59 PM CDT Hospital Encounter [facility] [address] [place] [address] Ton Hernandez APRN-CNP [address] [place] [address] Discharge Disposition: Home or Self [...] Progress Notes * Ton Hernandez APRN-CNP - 05/16/2022 11:51 AM CDT Please let pt know her labs are normal. Increase fluid intake. BUN just barely elevated. documented in this encounter Plan of Treatment Not on file documented as of this encounter Procedures Procedure Name Priority Date/Time Associated Diagnosis Comments URINALYSIS REFLEX TO MICROSCOPIC NO CULTURE Routine 05/16/2022 9:45 AM CDT Laboratory examination ordered as part of a routine general medical examination COMPREHENSIVE METABOLIC PANEL Routine 05/16/2022 9:45 AM CDT Laboratory examination ordered as part of a routine general medical examination documented in this encounter Results * (ABNORMAL) COMPREHENSIVE METABOLIC PANEL (05/16/2022 9:45 AM CDT) Sodium 137 137 - 145 mmol/L 05/16/2022 10:18 AM CDT [facility] ([facility]) Potassium 4.6 3.6 - 5.0 mmol/L 05/16/2022 10:18 AM CDT [facility] ([facility]) Chloride 103 98 - 107 mmol/L 05/16/2022 10:18 AM T [facility] ([facility]) Carbon Dioxide 26 21 - 31 mmol/L 05/16/2022 10:18 AM CDT [facility] ([facility]) Glucose 100 65 - 100 mg/dL 05/16/2022 10:18 AM T [facility] ([facility]) BUN 19(H) 7 - 17 mg/dL 05/16/2022 10:18 AM CDT [facility] ([facility]) Creatinine 0.70 0.50 - 1.04 mg/dL 05/16/2022 10:18 AM T [facility] ([facility]) eGFR 88 >=60 ml/min/1.7 3*2 05/16/2022 10:18 AM CDT [facility] ([facility]) Comment: Chronic kidney disease is defined [...] 28.4(H) 6.0 - 26.0 05/16/2022 10:18 AM [facility] ([facility]) Calcium 9.1 8.4 - 10.7 mg/dL 05/16/2022 10:18 AM [facility] ([facility]) Protein Total 7.8 6.3 - 8.2 g/dL 05/16/2022 10:18 AM [facility] ([facility]) Albumin 4.6 3.9 - 5.0 g/dL 05/16/2022 10:18 AM [facility] ([facility]) Albumin/Globulin Ratio 1.5 1.1 - 2.2 g/dL 05/16/2022 10:18 AM [facility] ([facility]) Bilirubin Total 0.7 0.2 - 1.3 mg/dL 05/16/2022 10:18 AM [facility] ([facility]) Alkaline Phosphatase 54 38 - 126 U/L 05/16/2022 10:18 AM [facility] ([facility]) AST 27 8 - 39 U/L 05/16/2022 10:18 AM [facility] ([facility]) ALT 26 9 - 52 U/L 05/16/2022 10:18 AM CDT [facility] ([facility]) Blood BLOOD SPECIMEN / Unknown Lab Venipuncture / Unknown 05/16/2022 9:45 AM CDT 05/16/2022 9:45 AM CDT Ton eHrnandez SOFTWARE QUALITY TESTER-COMMERCIAL FINANCE MANAGER LAB - CHEMISTRY ORDERABLES [facility] ([facility]) [address] [place] [address] * URINALYSIS REFLEX TO MICROSCOPIC NO CULTURE (05/16/2022 9:45 AM CDT) Color UA Yellow Yellow, Perla 05/16/2022 10:29 AM CDT [facility] ([facility]) Clarity UA Clear Clear, Hazy 05/16/2022 10:29 AM T [facility] ([facility]) Glucose UA Negative Negative, Color Interference 05/16/2022 10:29 AM CDT [facility] ([facility]) Ketone UA Negative Negative 05/16/2022 10:29 AM CDT [facility] ([facility]) Blood UA Negative Negative 05/16/2022 10:29 AM T [facility] ([facility]) Bilirubin UA Negative Negative 05/16/2022 10:29 AM T [facility] ([facility]) Protein UA Negative Negative 05/16/2022 10:29 AM T [facility] ([facility]) Leukocyte UA Negative Negative 05/16/2022 10:29 AM T [facility] ([facility]) Nitrite UA Negative Negative 05/16/2022 10:29 AM T [facility] ([facility]) Specific Vista UA 1.015 1.000, 1.005, 1.010, 1.015, 1.020, 1.025 05/16/2022 10:29 AM T [facility] ([facility]) pH UA 5.5 5.0, 5.5, 6.0, 6.5, 7.0, 7.5, 8.0, Color Interference 05/16/2022 10:29 AM T [facility] ([facility]) Urobilinogen UA 0.2 0.2, 1.0 2 10:29 AM CDT [facility] ([facility]) Urine URINE SPECIMEN OBTAINED BY CLEAN CATCH PROCEDURE / Unknown Collection / Unknown 05/16/2022 9:45 AM CDT 05/16/2022 9:45 AM CDT Ton HOLT LAB - URINALYSIS ORDERABLES [facility] ([facility]) [address] [place] [address] documented in this encounter Visit Diagnoses Diagnosis Laboratory examination ordered as part of a routine general medical examination documented in this encounter Care Teams Loan Servicing Officer Relationship Specialty Start Date End Date Ton Hernandez APRN-CNP [address] [place] [address] PCP - General Nurse Practitioner 05/12/22 documented as of this encounter
--- OUTSIDE RECORDS SUMMARY | 2024-08-18 10:04 | XMS_ITS | Encounter Summary ---
Author Organization [facility] Address [address] [place] [address]. [place] [address] [place] [address] Care Team Providers Care Profiler Name Role Phone Ton Hernandez NP Primary Care Provider [phone] Monico Reynoso MD Unavailable [phone] Reason for Visit * Reason Comments Incontinence Evaluation * Physical Medicine (Routine) - Closed Specialty Diagnoses / Procedures Referred By Cecy gage Referred To Contact PHYSICAL THERAPY / [facility] Physical Therapy Diagnoses Pelvic floor dysfunction in female Procedures OFFICE/OUTPT VISIT,NEW,LEVL III OFFICE/OUTPT VISIT,NEW,LEVL IV OFFICE/OUTPT VISIT,NEW,LEVL V OFFICE/OUTPT VISIT,EST,LEVL III OFFICE/OUTPT VISIT,EST,LEVL IV OFFICE/OUTPT VISIT,EST,LEVL V Viral Shah MD [address] [facility], [address] [place] [address] Phone: tel: fax: [facility] [address] [place] [address] Phone: tel: fax: Referral ID Status Reason Start Date Expiration Date V isits Requested Visits Authorized [id number] Closed Physical Therapy 10/18/2022 10/19/2023 60 60 Encounter Details Date Type Department Care Team (Late st Contact Info) Description 11/09/2022 1:00 PM CDT Office Visit [facility] [address] [place] [address] Juan [place], PT [address] 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 No / Unsure 11/09/2022 12:46 PM CDT documented as of this encounter Patient Instructions * Patient Instructions* Juan [place], PT - 11/09/2022 1:00 PM CDT Quieting the autonomic nervous system- 1. Lateral diaphragmatic breathing x 5 2. Fascial abdominal scoop with 90 sec hold-- Self-stretch- 90 seconds (hands just above pubic bone: pull up towards chin, diagonal left, diagonal right with 90 seconds each pull) 3. Knee to opposite shoulder- piriformis stretch with 60 second hold 4. Bridge with 10 second hold 5. Pelvic floor contraction with 5 second hold Pelvic Floor Drop Sitting-side bend toward the right and slightly forward then placed the left hand on the lower abdominal area/ribs Take a deep and lateral breath into the left hand and left side area Feel the left hand 4. Try to feel a gentle expansion/stretch on the pelvic floor muscles 5. Perform 3-5 times 6. Switch sides 7. Advance to standing as able PF 1 weeks with Juan or Zainab x 6 visits documented in this encounter Progress Notes * Juan [place], PT - 11/09/2022 1:00 PM CDT INITIAL PHYSICAL THERAPY PELVIC FLOOR EVALUATION 11/09/2022 Belem Coto : 1970 Referring Physician: Viral Shah MD Diagnosis: Pelvic floor dysfunction order for therapy: Evaluate and treat with physical therapy Follow-up appointment with provider: As needed Precautions: Multiple surgeries with complications to repair vaginal rectal fistula. Restrictions: None stated. Total approved visits: As medically necessary POC due: 01/20/23 Dear Viral Shah MD, Thank you for the referral of Belem to [facility]. Subjective: Rectal vaginal fistula in 2019. She had multiple surgeries to correct this. [place] [facility] [place] [facility] [place], [facility]. She finally went back to [place] in [place]. At that time she had her colostomy bag in Apr 2020 and the reversal done May 18, 2022.. They took tissue from her left labia to repair her fistula. After she got home the labia came open and she had stool everywhere. She went Septic and had everything cleaned out and had a colostomy placed at that time. She had her second surgery done at [place] by Dr. Shen in which they took tissuefrom her right hip adductor's to repair the fistula. She reports that it did not fully repair the area, but it improved. Dr. Shen referred her to Dr. Oh for 3-4 repairs for the vaginal fistula. Shealso did 60 O2 treatments to help heal the fistula. If she has a stomach bug, drinks caffeine or carbonated beverages her stools are very loose. If she sits on a stool to have a BM she is not able tofully empty. She has the best time emptying when her stools are fully formed. Bladder control has gotten worse since all of this since. Her biggest concern is she is not able to fully empty her stools (she wipes and there is more coming out). POPDI-6: 4 CRAD-8: 11 GEREMIAS-6: 3 # Pregnancies/Deliveries: 10/20 C section: No Tearing: Yes- third delivery was a stage four Episiotomy: No Menopause: uterine ablation 12 years ago Vaginal Surgeries: over 20 Abdominal Surgeries: colostomy and reverse colostomy Hip, Lumbar or Coccyx injury/surgery: no Currently : No Currently Sexually Active: Yes, some discomfort Current Control or IUD?: No Past medical history: No past medical history on file. Past Surgical History: Procedure Laterality Date ??? ABDOMINOPLASTY ??? COLOSTOMY 2019 with reversal 2021 ? ? FOCUSED US UTERINE LEIOMYOMATA ABLATION, W/MR GUIDE; TOT < 200 CC OF TISSUE ??? OTHER PROCEDURE multiple procedures for rectovaginal fistula, last one performed No current outpatient medications on file. Pain:No vaginal Type:aching occasional- increased gas since reversal of colostomy. (descending colon) Pain Rating: Worst: 0/10 Best: 0/10 Current 0/10 Pain present before during or after BM: No Pain present before during or after [place]: Yes Bowel Movement Frequency 2-3 times a day Varies between Type 2-6 Type: [place] Stool Scale Varies between Type 2-6 Fecal Incontinence: Yes- 1 to 2 times a week small amounts Feeling of complete emptying: No Urinary Pattern Frequency, Day typical Night 1-2 times a night Self Catheterization: No Difficulty Initiating Stream: No Incontinence: Yes , sneezing, coughing, laughing and lifting/ certain exerciss Leakage Amount: moderate # of Pads Per Day no Feeling of complete emptying: Yes Diet/Fluid Intake Special Diet: No Fluids: water and 1 cup of coffee in the morning Bladder irritants: No Estimated Intake (in oz.) 60+ onces Occupation: can sit and stand as needed. 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 No heavy lifting. Personal Protective Equipment: Comments: Mask mandate lifted. No mask worn Objective: Patient verbalized informed consent for evaluation, external and internal exam received. Functional mobility: Posture: No significant asymmetries Flexibility: Lumbar/LE Flexibility Right Left 90/90 Test Minimal deficits Minimal deficits Piriformis Flexibility Minimal deficits Minimal deficits ITB Flexibility Minimal deficits Minimal deficits LUMBAR ROM Flexion 100% Extension 100% Right side bending 95% Left side bending 95% Right rotation 100% Left rotation 100% LE Strength LE STRENGTH Left Right Knee flexion 5/5 5/5 Knee extension 5/5 5/5 Hip flexion 4+/5 4+/5 Hip extension 4+/5 4+/5 Hip abduction 4+/5 4+/5 Hip adduction 4/5 4/5 Glute Max 5/5 5/5 Core Strength Lower Abdominal Strength 3+/5 Palpation/ reflexes: Anal wink not notable Diastasis Recti: Not significant TA contraction 3+/5 Upper Abdominal 3+/5 Scars: Yes as mentioned Special Tests: Stork negative Distraction/Compression negative Dick Test negative Kendall negative Fadir negative Scour negative Obers negative Lumbar Clearing negative SLR negative Pelvic Floor Muscle (PFM) Exam: External Observation Response to contraction: Visible LIFT Visible bulge with bearing down: None Rectal Digital Exam: Not this date Vaginal Digital Exam: Observation/Sensation/Pain/Trigger Points: Scar of left labia from reconstruction, scar along righthip adductor's from reconstruction, scar from colostomy/reversal colostomy, scar from scope sites, scar from tummy tuck, scar in the perennial area from reconstruction. Pelvic Floor Muscle Tone: Increased slightly Pelvic Floor Strength: (0 = no palpable contraction, 1= flicker contraction, 2 = contraction, no lift, 3 = palpable contraction and lift posterior >anterior, 4 = palpable contraction and lift withcompression from urogenital triangle, 5 = palpable lift and compression with inferior deflection ofMCP) Quick contraction: 3 contractions in 10 seconds 2/5, Endurance contraction: 4 seconds x 3 reps 2/5, Ability to Relax: Partial Compensatory Techniques:gluteals Pain/trigger point: No Pain/trigger point: No complaints of pain Bulge: No Biofeedback Evaluation: Electrode Placement: Surface/Perianal Position: Micro volts Recruitment Derecruitment Endurance Contractions: Max Avg: Work to rest ratio Rest Avg: Quick Contractions: Work Avg: Work to rest ratio Rest Avg: Baseline Resting Tone Supine Rest Av.1/ .1 Baseline Resting Tone Seated Rest Avg: Treatment Today: Handouts were given on the following: ?? Quieting the autonomic nervous system- 1. Lateral diaphragmatic breathing x 5 2. Fascial abdominal scoop with 90 sec hold-- ??? Self-stretch- 90 seconds (hands just above pubic bone: pull up towards chin, diagonal left, diagonal right with 90 seconds each pull) 3. Knee to opposite shoulder- piriformis stretch with 60 second hold 4. Bridge with 10 second hold 5. Pelvic floor contraction with 5 second hold Pelvic Floor Drop 1. Sitting-side bend toward the right and slightly forward then placed the left hand on the lower abdominal area/ribs 2. Take a deep and lateral breath into the left hand and left side area 3. Feel the left hand 4. Try to feel a gentle expansion/stretch on the pelvic floor muscles 5. Perform 3-5 times 6. Switch sides 7. Advance to standing as able Labial skin rolling on the left Perineal mobility Timed Code Tx Minutes 90 units 6 total Tx Time 90 Assessment: Patient exhibits the following: Incomplete fecal emptying, multiple pelvic reconstruction surgeries/procedures-20+ stress urinary incontinence, core weakness and LE weakness Patient presents with connective tissue restrictions, pelvic floor dysfunction, muscular trigger points, adverse neural tension, structure and biomechanic dysfunction, and impacted quality of life. Patient will benefit from skilled pelvic floor physical therapy to address above dysfunctions and quality of life concerns. Treatment will be adjusted as deemed necessary by PT. Rehab Potential: good Therapy Goals: (to be met upon discharge) Patient will: 4. Be independent with progressive home exercise program in 12 weeks 5. Decrease pain complaints to 0/10 in order to work, complete all ADLs and recreational tasks withno pain in 12 weeks. 6. Exhibit good knowledge of pelvic anatomy and healthy bladder habits/self-help awareness in 12 weeks 7. Demonstrate an increase in PFM contraction to normal or improved to 3/5 in order to control bowel and bladder in 12 weeks. 8. Demonstrate an increase in PFM endurance from 3 second hold to 5 second hold times 5 repetitionsas measured by EMG in 12 weeks to improve UI/Fecal incontinence. 9. Demonstrate decreased overflow muscle activity during PFM contraction in 12 weeks to demonstrateproper PFM contraction. 10. Demonstrate improved ability to relax PFM to < .5 on EMG biofeedback to improve downtrainingof PFM in 12 weeks. 11. Demonstrate posterior PFM contraction without increased intra-abdominal pressure in 12 weeks . 12. Present with the ability to not leak gas throughout activities of daily living within 24 weeks. Assessment Eval Complexity Personal Factor/Co-morbidities: 1-2 (Mod) Examination of Body Systems Needing Addressed: 1-2 elements (Low) Clinical Presentation of Patient: Evolving (Mod) Clinical Decision Making: Mod Treatment Plan: Frequency: 1x/week for 12 weeks Patient to be seen for: neuromuscular re-ed, manual therapy, home excercise program, flexibility, strengthening and Physiological quieting and tissue mobility/fascial stretching Next visit review home program, progress to strengthening, possible rectal exam Therapist: JUAN [place]KINS PT Date: 11/09/22 Time: 1:00 PM Physician certification: I certify that the above physical therapy services are required, authorized, and reviewed. I have no revisions to this plan of care Revise plan of care as follows: Discharge Patient Provider Signature: Date: In signing this document, physician certifies that prescribed rehabilitation is a medical necessity. Provider Signature: Viral Shah MD Patient Name: Belem Coto : 1970 Cosigned by Viral Shah MD at 11/13/2022 1:15 PM CDT documented in this encounter Plan of Treatment Not on file documented as of this encounter Visit Diagnoses Diagnosis Pelvic floor dysfunction in female documented in this encounter Care Teams Profiler Relationship Specialty Start Date End Date Ton Hernandez NP [address] [place] [phone] PCP - General FAMILY PRACTICE 10/04/22 Monico Reynoso MD [address] [place] [address] FAMILY PRACTICE 10/04/22 documented as of this encounter
--- OUTSIDE RECORDS SUMMARY | 2024-08-18 10:04 | XMS_ITS | Encounter Summary ---
Author Organization [facility] Address [facility] [facility] [place] [address] [place] [address] Care Team Providers Care Well Logging Captain Mud Analysis Name Role Phone DavidTon HUMBERTO Primary Care Provider [phone] Monico Reynoso MD Unavailable [phone] Reason for Visit * Reason Onset Date Comments Question 10/18/2022 PT and colonosco py Encounter Details Date Type Department Care Team (Late st Contact Info) Description 10/18/2022 Telephone Viral Shah MD General Surgery [address] [place] [address], [address] [place] [address] Viral Shah MD [address] [place] [address], [address] [place] [address] Question (PT and colonoscopy) Social History Tobacco Use Types Packs/Day Years Used Date Smoking Tobacco: Never Smokeless Tobacco: Never Comments No Sex and Gender Information Value Date Recorded Sex Assigned at Not on file 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 No / Unsure 10/04/2022 1:05 PM DENTAL SCHEDULER documented as of this encounter Progress Notes * Yulissa River RN - 10/18/2022 9:37 AM CST I spoke with Belem. We sent an order for Pt eval/treat to [facility] physical therapy at the [facility].She may call there to get scheduled with Rosanne. The colonoscopy can be scheduled after PT AL SCHEDULER * Laura Brooks - 10/18/2022 8:14 AM CST Pt called to follow up on physical therapy appointment with Rosanne Johns? Saw DRB on 10/04/22. Reverse colostomy on 05/18/22. She also inquired about getting colonoscopy as she Is over 50 and also discussed this at her apt. David AL SCHEDULER documented in this encounter Plan of Treatment Not on file documented as of this encounter Visit Diagnoses Not on filedocumented in this encounter Care Teams Well Logging Captain Mud Analysis Relationship Specialty Start Date End Date Ton Hernandez NP [address] [place] [phone] PCP - General FAMILY PRACTICE 10/04/22 Monico Reynoso MD [address] [place] [address] FAMILY PRACTICE 10/04/22 documented as of this encounter
--- OUTSIDE RECORDS SUMMARY | 2024-08-18 10:04 | XMS_ITS | Encounter Summary ---
Author Organization [facility] Address [address] [place] [address]. [place] [address] [place] [address] Care Team Providers Care Automobile Insurance Claim Examiner Name Role Phone DavidTon HUMBERTO Primary Care Provider [phone] Monico Reynoso MD Unavailable [phone] Reason for Visit * Reason Comments Consult Fecal and urinary in continence Encounter Details Date Type Department Care Team (Late st Contact Info) Description 10/04/2022 1:00 PM MANAGER CLUB Office Visit Viral Shah MD General Surgery [address] [place] [address] [place] [address] Viral Shah MD [address] [place] [address], [address] [place] [address] Consult (Fecal and urinary incontinence) Social History Tobacco Use Types Packs/Day Years Used Date Smoking Tobacco: Never Smokeless Tobacco: Never Tobacco Cessation:Counseling Given: Not Answered Comments No Sex and Gender Information Value Date Recorded Sex Assigned at Not on file Legal Sex Female 11:19 PM MANAGER CLUB Gender Identity Not on file Sexual Orientation Not on file COVID-19 Exposure Response Date Recorded In the last 10 days, have yo u been in contact with someone who was confirmed or suspected to have Coronavirus/COVID-19? No / Unsure 11/28/2022 7:00 AM CDT documented as of this encounter Last Filed Vital Signs Vital Sign Reading Time Taken Comments Blood Pressure 163/83 10/04/2022 1:20 PM MANAGER CLUB Pulse 85 10/04/2022 1:20 PM MANAGER CLUB Temperature 36.2 ??C (97.2 ??F) 10/04/2022 1:20 PM CS T Respiratory Rate - - Oxygen Saturation 100% 10/04/2022 1:20 PM MANAGER CLUB Inhaled Oxygen Concentration - - Weight - - Height - - Body Mass Index - - documented in this encounter Progress Notes * Viral Shah MD - 10/04/2022 1:00 PM CST General Surgery New Patient Belem Coto 1970 51-year-old female 10/04/2022 HPI: Belem requested an evaluation for complaints of urinary and fecal incontinence. She has had multiple surgeries for rectovaginal fistula, starting 2007. Her symptoms started after her last delivery [id number]. Her last one was performed [address] Oh at [facility], which included a colostomy with reversal [address] Shen in [facility]. Stress incontinence with urine and stool. She has started taking Imodium daily for the last 2 weeks. This sequence of pathological events has interfere with her sense of well being and her general performance. 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 , age 1st delivery age 26, menarch age 13. History reviewed. No pertinent past medical history. Past Surgical History: Procedure Laterality Date ??? ABDOMINOPLASTY ??? COLOSTOMY 2019 with reversal 2021 ? ? FOCUSED US UTERINE LEIOMYOMATA ABLATION, W/MR GUIDE; TOT < 200 CC OF TISSUE ??? OTHER PROCEDURE multiple procedures for rectovaginal fistula, last one performed [id number] Prior to Admission medications Not on File No Known Allergies Family History Problem Relation Name Age of Onset ??? Cancer Mother thryoid ??? Heart Attack Father Social History Tobacco Use ??? Smoking status: Never ??? Smokeless tobacco: Never Objective: Filed Vitals: 10/04/22 1320 BP: (!) 163/83 Pulse: 85 Temp: 97.2 ??F (36.2 ??C) TempSrc: Temporal SpO2: 100% There is no height or weight on file to calculate BMI. Physical Exam: General Appearance: healthy, alert, no acute distress, cooperative, afebrile Head: No masses or lesions Eyes: conjunctivae clear, sclera non icteric Throat: Lips, mucosa, and tongue normal. Oropharynx clear. Neck: Neck supple. No adenopathy. Thyroid symmetric, normal size, Lungs: Lungs clear to auscultation. Normal respiratory effort. Heart: Regular sinus rhythm Abdomen: Abdomen soft, non-tender. No organomegaly. Prior colostomy site left quadrant well healed.Musculature moderately hypotonic. Extremities: normal motility. No edema or calf tenderness.. Lymphatics: No evidence of clinically significant regional adenopathy Skin: No suspicious lesions. Neurology: No signs of deficit Rectum: Examination performed with patient on lateral decubitus. Sphincter tone is present, no prolapse, no masses felt Assessment/Plan: History of rectovaginal fistula, multiple surgical procedures. Pelvic floor dysfunction. She is likely to benefit from a consultation at the [facility] Physical Therapy Dept. Additional surgical procedures are not likely to be of benefit and should be avoided. She agrees with the plan. I will discuss the findings with Rosanne Farley who is an excellent physical therapist with high expertise in the field of pelvic dysfunction. Viral Shah MD documented in this encounter Plan of Treatment Not on file documented as of this encounter Visit Diagnoses Diagnosis Pelvic region somatic dysfunction- Primary Nonallopathic lesion of pelvic region, not elsewhere classified documented in this encounter Care Teams Automobile Insurance Claim Examiner Relationship Specialty Start Date End Date Ton Hernandez NP [address] [place] [phone] PCP - General FAMILY PRACTICE 10/04/22 Monico Reynoso MD [address] [place] [address] FAMILY PRACTICE 10/04/22 documented as of this encounter
--- OUTSIDE RECORDS SUMMARY | 2024-08-18 10:04 | XMS_ITS | Encounter Summary ---
Author Organization [facility] Address [facility] [facility]. [place], [place] [address] [place] [address] Care Team Providers Care Oil Dipper Name Role Phone Ton Hernandez NP Primary Care Provider Monico Reynoso MD Unavailable [phone] Reason for Referral * Physical Medicine (Routine) - Closed Specialty Diagnoses / Procedures Referred By Cecy gage Referred To Contact PHYSICAL THERAPY / [facility] Physical Therapy Diagnoses Pelvic floor dysfunction in female Procedures OFFICE/OUTPT VISIT,NEW,LEVL III OFFICE/OUTPT VISIT,NEW,LEVL IV OFFICE/OUTPT VISIT,NEW,LEVL V OFFICE/OUTPT VISIT,EST,LEVL III OFFICE/OUTPT VISIT,EST,LEVL IV OFFICE/OUTPT VISIT,EST,LEVL V Viral Shah MD [address] [facility], [address] [place] [address] Phone: tel: fax: [facility] [address] [place] [address] Phone: tel: fax: Referral ID Status Reason Start Date Expiration Date V isits Requested Visits Authorized [id number] Closed Physical Therapy 10/18/2022 10/19/2023 60 60 ONAL GUIDE Encounter Details Date Type Department Care Team (Late st Contact Info) Description 10/18/2022 Orders Only Viral Shah MD General Surgery [address] [facility], [address] [place], [place] [phone] Viral Shah MD [address] [facility], [address] [place], [place] [address] Social History Tobacco Use Types Packs/Day Years Used Date Smoking Tobacco: Never Smokeless Tobacco: Never Comments No Sex and Gender Information Value Date Recorded Sex Assigned at Not on file Legal Sex Female 11:19 PM REGIONAL GUIDE Gender Identity Not on file Sexual Orientation Not on file COVID-19 Exposure Response Date Recorded In the last 10 days, have yo u been in contact with someone who was confirmed or suspected to have Coronavirus/COVID-19? No / Unsure 10/04/2022 1:05 PM REGIONAL GUIDE documented as of this encounter Plan of Treatment Scheduled Referrals Name Type Priority Associated Diagnoses Orde r Schedule Ambulatory referral to Physical Therapy Referral Routine Pelvic floor dysfunction in female Ordered: 10/18/2022 documented as of this encounter Visit Diagnoses Diagnosis Pelvic floor dysfunction in female- Primary documented in this encounter Care Teams Oil Dipper Relationship Specialty Start Date End Date Ton Hernandez NP [address] [place] [phone] PCP - General FAMILY PRACTICE 10/04/22 Monico Reynoso MD [address] [place] [address] FAMILY PRACTICE 10/04/22 documented as of this encounter
--- OUTSIDE RECORDS SUMMARY | 2024-08-18 10:04 | XMS_ITS | Clinical Summary ---
Author Organization [facility] Address [address] [place] [address]. [place] [address] [place] [address] Care Team Providers Care Wrapper Selector Name Role Phone Ton Hernandez NP Primary Care Provider [phone] Monico Reynoso MD Unavailable [phone] Allergies No known active allergies Medications No known medications Active Problems Problem Noted Date Diagnosed Date Pelvic region somatic dysfunction 12/03/2022 Family History Medical History Relation Comments Heart Attack Father Cancer Mother thryoid Relation Status Comments Father Mother Social History Tobacco Use Types Packs/Day Years Used Date Smoking Tobacco: Never Smokeless Tobacco: Never Tobacco Cessation:Counseling Given: Not Answered Comments No Sex and Gender Information Value Date Recorded Sex Assigned at Not on file Legal Sex Female 11:19 PM 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 Gender Identity Not on file Sexual Orientation Not on file Last Filed Vital Signs Vital Sign Reading Time Taken Comments Blood Pressure 163/83 10/04/2022 1:20 PM VASCULAR NEUROLOGIST Pulse 85 10/04/2022 1:20 PM VASCULAR NEUROLOGIST Temperature 36.2 ??C (97.2 ??F) 10/04/2022 1:20 PM CS T Respiratory Rate - - Oxygen Saturation 100% 10/04/2022 1:20 PM VASCULAR NEUROLOGIST Inhaled Oxygen Concentration - - Weight 88.7 kg (195 lb 8 oz) 01/22/2013 11:42 AM CDT Height 177.8 cm (5' 10 ) 01/22/2013 11:42 AM CDT Body Mass Index 28.05 01/22/2013 11:42 AM CDT Plan of Treatment Health Maintenance Due Date Last Done Comments Cervical Cancer Screening Pap Smear (Age 30 to 64) Every 3 Years 1970 Colorectal Cancer Screening Colonoscopy (10 Years) 1970 Annual Physical 1973 Hepatitis C 1988 Hepatitis B Vaccines (1 of 3 - 19+ 3-dose series) 1989 Cervical Cancer Screening Pap with HPV Testing (Age 30 to 64) Every 5 Years 2000 Cervical Cancer Screening with HPV 2000 Zoster Vaccines (1 of 2) 2020 Mammogram Screening 04/25/2021 04/25/2019, 04/18/2019, 07/24/2013 COVID-19 Vaccine ( season) 2024 12/01/2021, 06/02/2021, 11/08/2020, Additional history exists Influenza Adult (#1) 2024 05/16/2021, 05/20/2020, 05/29/2019 DTaP, Tdap and Td Vaccines (2 - Td or Tdap) 07/22/2029 07/22/2019 Meningococcal Vaccine Aged Out No johann mary eligible based on patient's age to complete this topic Pneumococcal Vaccine: Pediatrics (0 to 5 Years) and At-Risk Patients (6 to 64 Years) Aged Out No longer eligible based on patient's age to complete this topic RSV Immunizations Under 20 Months Aged Out No longer eligible based on patient's age to complete this topic Procedures Procedure Name Priority Date/Time Associated Diagnosis Comments MG DIAG ADD VIEW LT DIGI Routine 04/25/2019 2:28 PM CDT Abnormal mammogram COLONOSCOPY Routine VASCULAR NEUROLOGIST from Last 3 Months or Most Recently Relevant to Health Maintenance Results * MG DIAG ADD VIEW LT DIGI (04/25/2019 2:28 PM CDT) Anatomical Region Laterality Modality Breast Left Mammography 04/25/2019 4:54 PM CDT Impressions 04/25/2019 4:57 PM CDT IMPRESSION: Likely benign compressible focal tissue asymmetry. Recommendation: 1: Ultrasound around the nipple mostly the upper part between 8 and 4 left ? Assessment: ACR BI-RADS Category 0 - Need additional imaging evaluation. Examination: Ultrasound breast Limited left [id number] Clinical history: There is a subtle focal tissue asymmetry in the subareolar region. Unremarkable diagnostic mammogram. Comparison: Patient had old studies of the left breast with ultrasound in 2012. Technique: Imaging performed for the upper part close to the nipple between 8 and 4:00. Findings: There is no mass. No shadowing. There is no dominant cyst or ductal ectasia. No increased vascularity. The ultrasound appearance is benign. IMPRESSION: Unremarkable left breast ultrasound. Recommendation: 1: Routine screening mammogram ??Bilateral ?? in 1 Year ? Assessment: ACR BI-RADS Category 2 - Benign. The results were explained to the patient at the time of ultrasound 04/25/2019 Interpreted By: Obinna Lopez MD, 04/25/2019 4:54 PM Narrative 04/25/2019 4:57 PM CDT Examination: MG DIAG ADD VIEW LT DIGI, US BREAST LT BIRAD LTD [id number] Clinical history: Screening mammogram showed a subtle tissue asymmetry in the subareolar region Comparison: Comparison made to mammogram 04/18/2019 Technique: Digital screening mammography of left breast was performed. Spot views performed with straight ML view Tissue density: The breast tissue is heterogeneously dense. Findings: The dense tissue may obscure some lesions mammographically. ??The previously seen subtle focal tissue asymmetry is compressible. There is heterogeneous tissue in the subareolar region. No nipple retraction or architectural distortion. us Jeff Bhakta MD MAMMO Final Res ult * Colonoscopy ( VASCULAR NEUROLOGIST) Narrative [facility] TO EPIC CONVERSION - VASCULAR NEUROLOGIST Documented hx of procedure Procedure Note , Generic Conversion, - 06/23/2018 Documented hx of procedure us Generic Conversion Md MD MCGUIRE PROCEDURE ORDERABLES Final Result [facility] TO [facility] CONVERSION from Last 3 Months or Most Recently Relevant to Health Maintenance Insurance Advance Directives Documents on File Type Date Recorded Patient Liquor Department Manager Expl anation Advance Directives and Living Will 01/06/2013 12:00 AM [employer] Advance Directives and Living Will 01/06/2013 12:00 AM [employer] Care Teams Wrapper Selector Relationship Specialty Start Date End Date Ton Hernandez NP [address] [place] [phone] PCP - General FAMILY PRACTICE 10/04/22 Monico Reynoso MD [address] [place] [address] FAMILY PRACTICE 10/04/22
--- OUTSIDE RECORDS SUMMARY | 2024-08-18 10:04 | XMS_ITS | Encounter Summary ---
Author Organization [facility] - [facility] Address [address] [place] [address]. [place], [place] [address] [place] [address] Care Team Providers Care Campaign Assistant Name Role Phone Ton Hernandez NP Primary Care Provider [phone] Monico Reynoso MD Unavailable [phone] Reason for Visit * Reason Comments Vaginal Pain Pelvic Pain Visit 2 * Physical Medicine (Routine) - Closed Specialty Diagnoses / Procedures Referred By Cecy gage Referred To Contact PHYSICAL THERAPY / [facility] Physical Therapy Diagnoses Pelvic floor dysfunction in female Procedures OFFICE/OUTPT VISIT,NEW,LEVL III OFFICE/OUTPT VISIT,NEW,LEVL IV OFFICE/OUTPT VISIT,NEW,LEVL V OFFICE/OUTPT VISIT,EST,LEVL III OFFICE/OUTPT VISIT,EST,LEVL IV OFFICE/OUTPT VISIT,EST,LEVL V Viral Shah MD [address] [facility], [address] [place] [address] Phone: tel: fax: [facility] Physical Therapy [address] [place] [address] Phone: tel: fax: Referral ID Status Reason Start Date Expiration Date V isits Requested Visits Authorized [id number] Closed Physical Therapy 10/18/2022 10/19/2023 60 60 Encounter Details Date Type Department Care Team (Late st Contact Info) Description 11/28/2022 7:00 AM CDT Office Visit [facility] [address] [place], [place] [address] Juan Watkins, PT [address] 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 No / Unsure 11/28/2022 7:00 AM CDT documented as of this encounter Progress Notes * Juan Watkins, PT - 11/28/2022 7:00 AM CDT 12/27/2022: Patient discharged to use daily per her request. Goals are not met. Patient to be seen somewhere closer to home. Juan Watkins, PT. Pelvic Floor Daily Treatment Note Date: 11/28/2022 Daily visit: # 2 Belem Chica : 1970 Referring Physician: Viral Shah MD Diagnosis: Pelvic floor dysfunction order for therapy: Evaluate and treat with physical therapy Follow-up appointment with provider: As needed Precautions: Multiple surgeries with complications to repair vaginal rectal fistula. Restrictions: None stated. Total approved visits: As medically necessary POC due: 01/20/23 Subjective Hx: Rectal vaginal fistula in 2019. She had multiple surgeries to correct this. She started off at [facility], then [facility], then [facility]. She finally went back to [facility]. At that time she had her colostomy bag in Apr 2020 and the reversal done May 18, 2022.. They took tissue from her left labia to repair her fistula. After she got home the labia cameopen and she had stool everywhere. She went Septic and had everything cleaned out and had a colostomy placed at that time. She had her second surgery done at [facility] by Dr. Shen in which they took tissue from her right hip adductor's to repair the fistula. She reports that it did not fully repair the area, but it improved. Dr. Shen referred her to Dr. Oh for 3-4 repairs for the vaginal fistula. She also did 60 O2 treatments to help heal the fistula. If she has a stomach bug, drinks caffeine orcarbonated beverages her stools are very loose. If she sits on a stool to have a BM she is not ableto fully empty. She has the best time emptying when her stools are fully formed. Bladder control has gotten worse since all of this since. Her biggest concern is she is not able to fully empty her stools (she wipes and there is more coming out). Hx: Incomplete fecal emptying, multiple pelvic reconstruction surgeries/procedures-20+ stress urinary incontinence, core weakness and LE weakness Patient presents with connective tissue restrictions,pelvic floor dysfunction, muscular trigger points, adverse neural tension, structure and biomechanic dysfunction, and impacted quality of life. Patient will benefit from skilled pelvic floor physicaltherapy to address above dysfunctions and quality of life concerns. Treatment will be adjusted as deemed necessary by PT. Observation/Sensation/Pain/Trigger Points: Scar of left labia from reconstruct ion, scar along right hip adductor's from reconstruction, scar from colostomy/reversal colostomy, scar from scope sites, scar from tummy tuck, scar in the perennial area from reconstruction. Pelvic Floor Muscle Tone: Increased slightly SUBJECTIVE Belem reports she had noticed possible better control with the exception of when she has loose stools. She states that her GI system seems to be very sensitive to dairy and green leafy vegetables. She has been able to do her fascial stretching as well. No questions regarding her current home program. Response to prior treatment: no Compliance with home exercise program: Yes Functional changes since last visit: minimal Reported falls since last visit: None Medication changes since last visit: None Patient rates current pain 0/10 on scale of 0-10. Location of pain: pelvic Description of pain: aching OBJECTIVE Objective: Personal Protective Equipment: Comments: Mask mandate lifted Patient verbalized informed consent for evaluation, external and internal exam received. Treatment provided today: Manual therapy (39110): 53 minutes Myofascial release- abdomen with focus on the left and right side of the uterus as well as ascending, descending, and sigmoid colon Scar Massage-lower abdominals and reverse colostomy Skin Rolls Passive LE stretching No internal work this date. Plan to progress to pelvic floor strengthening as well. Self care/home instruction (02669): 7 minutes Anatomy Education -benefits of increasing the mobility of the abdominal region to help with the typical pelvic floor muscle pump and then work to improve pelvic floor muscle stability and strength HEP Education Was Education Provided: Yes Topic: Need to improve tissue mobility to decrease pressure and improve patient's overall ability to progress and contract pelvic floor. Recipient: Patient Method: Demonstration, Verbal, Return Demonstration Response: Asked questions, Demonstrates adequately, Verbalized understanding Barriers: None HEP: Quieting the autonomic nervous system- 1. Lateral [...] skin rolling on the left Perineal mobility ASSESSMENT Patient continues to be concerned about her extensive gas and leakage of stools. She has significant tightness in her lower abdominal region especially on her left side. No internal work this date. However patient does report deep sensation of pain and discomfort with penetration. Patient also has a tendency to use her gluteal muscles when attempting pelvic floor contraction. She would benefit from progressing to biofeedback next treatment. She would also benefit from continued fascial work. Response to treatment: No adverse Goal progression: Gradual Continue on functional deficit of: Not able to fully empty her stools, decreased abdominal and pelvic floor strength, decreased ability to relax pelvic floor, decreased connective tissue movement of her abdomen. Therapy Goals: (to be met upon discharge) Patient will: Be independent with progressive home exercise program in 12 weeks Decrease pain complaints to 0/10 in order to work, complete all ADLs and recreational tasks with nopain in 12 weeks. Exhibit good knowledge of pelvic anatomy and healthy bladder habits/self-help awareness in 12 weeks Demonstrate an increase in PFM contraction to normal or improved to 3/5 in order to control bowel and bladder in 12 weeks. Demonstrate an increase in PFM endurance from 3 second hold to 5 second hold times 5 repetitions asmeasured by EMG in 12 weeks to improve UI/Fecal incontinence. Demonstrate decreased overflow muscle activity during PFM contraction in 12 weeks to demonstrate proper PFM contraction. Demonstrate improved ability to relax PFM to < .5 on EMG biofeedback to improve downtraining of PFM in 12 weeks. Demonstrate posterior PFM contraction without increased intra-abdominal pressure in 12 weeks . Present with the ability to not leak gas throughout activities of daily living within 24 weeks. PLAN Continue therapy 1x/week. Next visit plan: Go over toileting position and increasing intra-abdominal pressure to fully empty stools, abdominal work to promote abdominal movement, pelvic floor strength and stability to increase pelvic floor muscle tone, possible stretching of deep pelvic floor secondary to patient reports of discomfort with deep penetration. Total Time Total Time in Minutes: 60 Timed Code Treatment Minutes : 60 JUAN WATKINS PT documented in this encounter Plan of Treatment Not on file documented as of this encounter Visit Diagnoses Diagnosis Pelvic floor dysfunction in female- Primary documented in this encounter Care Teams Campaign Assistant Relationship Specialty Start Date End Date Ton Hernandez NP [address] [place] [address] PCP - General FAMILY PRACTICE 10/04/22 Monico Reynoso MD [address] [place] [address] FAMILY PRACTICE 10/04/22 documented as of this encounter
--- OUTSIDE RECORDS SUMMARY | 2024-08-18 10:04 | XMS_ITS | Encounter Summary ---
Author Organization [facility] - [facility] Address [address] [facility] 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 No / Unsure 10/04/2022 1:05 PM CAR CHANGER documented as of this encounter Plan of Treatment Not on file documented as of this encounter Visit Diagnoses Not on filedocumented in this encounter Care Teams Optical Engineering Manager Relationship Specialty Start Date End Date Ton Hernandez NP [address] [place] [phone] PCP - General FAMILY PRACTICE 10/04/22 Monico Reynoso MD [address] [place] [address] FAMILY PRACTICE 10/04/22 documented as of this encounter
--- OUTSIDE RECORDS SUMMARY | 2024-08-18 10:04 | XMS_ITS | Encounter Summary ---
Author Organization [facility] Address [address] [place] [address] [place] [address] Care Team Providers Care Parking Station Attendant Name Role Phone Monico Reynoso MD Primary Care Provider [phone] Reason for Visit * Consultation/Treatment (Routine) - Closed Specialty Diagnoses / Procedures Referred By Cecy gage Referred To Contact WOUND CARE / [facility] Wound Care Diagnoses Skin graft (allograft) (autograft) failure Procedures HYPERBARIC OXYGEN PROCEDURE [facility] [place] [address] [place] [address] Phone: tel: [facility] [address] [place] [address] Phone: tel: Referral ID Status Reason Start Date Expiration Date V isits Requested Visits Authorized [id number] Closed Hyperbaric Oxygen - HBO 02/21/2022 04/07/2022 20 20 Encounter Details Date Type Department Care Team (Latest Contact Info) Description 03/22/2022 8:00 AM CDT - 03/22/2022 11:59 PM CDT Hospital Encounter [facility] [address] [place], [place] [address] Jeff Zambrano DO [address] [place], [place] [id number] Discharge Disposition: Home or Self Care (Routine Discharge) Social History Tobacco Use Types Packs/Day Years Used Date Smoking Tobacco: Never Assessed Comments No Sex and Gender Information Value Date Recorded Sex Assigned at Not on file 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 No / Unsure 03/21/2022 8:12 AM CDT documented as of this encounter Plan of Treatment Not on file documented as of this encounter Visit Diagnoses Not on filedocumented in this encounter Care Teams Parking Station Attendant Relationship Specialty Start Date End Date Monico Reynoso MD [address] [place] [address] PCP - General FAMILY PRACTICE 08/26/21 10/03/22 documented as of this encounter
--- OUTSIDE RECORDS SUMMARY | 2024-08-18 10:04 | XMS_ITS | Encounter Summary ---
Author Organization [facility] - [facility] Address [address] [facility] 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
--- OUTSIDE RECORDS SUMMARY | 2024-08-18 10:04 | XMS_ITS | Encounter Summary ---
Author Organization [facility] Address [address] [facility] 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
--- OUTSIDE RECORDS SUMMARY | 2024-08-18 10:05 | XMS_ITS | Encounter Summary ---
Author Organization [facility] Address [address] [facility] [place] [address] [place] [address] Care Team Providers Care Supervisor Contact Lens Name Role Phone Monico Reynoso MD Primary Care Provider [phone] Reason for Visit * Consultation/Treatment (Routine) - Closed Specialty Diagnoses / Procedures Referred By Cecy gage Referred To Contact WOUND CARE / [facility] Wound Care Diagnoses Skin graft (allograft) (autograft) failure Procedures HYPERBARIC OXYGEN PROCEDURE [facility] [place] [address] [place] [address] Phone: tel: [facility] [address] [place] [address] Phone: tel: Referral ID Status Reason Start Date Expiration Date V isits Requested Visits Authorized [id number] Closed Hyperbaric Oxygen - HBO 02/21/2022 04/07/2022 20 20 Encounter Details Date Type Department Care Team (Latest Contact Info) Description 03/20/2022 8:00 AM CDT - 03/20/2022 11:59 PM CDT Hospital Encounter [facility] [address] [place], [place] [address] Jeff Zambrano DO [address] [place], [place] [address] Discharge Disposition: Home or Self Care (Routine Discharge) Social History Tobacco Use Types Packs/Day Years Used Date Smoking Tobacco: Never Assessed Comments No Sex and Gender Information Value Date Recorded Sex Assigned at Not on file 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 No / Unsure 03/20/2022 7:51 AM CDT documented as of this encounter Plan of Treatment Not on file documented as of this encounter Visit Diagnoses Not on filedocumented in this encounter Care Teams Supervisor Contact Lens Relationship Specialty Start Date End Date Monico Reynoso MD [address] [place] [address] PCP - General FAMILY PRACTICE 08/26/21 10/03/22 documented as of this encounter
--- OUTSIDE RECORDS SUMMARY | 2024-08-18 10:05 | XMS_ITS | Encounter Summary ---
Author Organization [facility] - [facility] Address [address] [facility] 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
--- OUTSIDE RECORDS SUMMARY | 2024-08-18 10:05 | XMS_ITS | Encounter Summary ---
Author Organization [facility] Address [address] [facility] 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 No / Unsure 03/15/2022 9:03 AM CDT documented as of this encounter Plan of Treatment Not on file documented as of this encounter Visit Diagnoses Not on filedocumented in this encounter Care Teams Seed Cutter Relationship Specialty Start Date End Date Monico Reynoso MD [address] [place] [address] PCP - General FAMILY PRACTICE 08/26/21 10/03/22 documented as of this encounter
--- OUTSIDE RECORDS SUMMARY | 2024-08-18 10:05 | XMS_ITS | Encounter Summary ---
Author Organization [facility] - [facility] Address [address] [facility] 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
--- OUTSIDE RECORDS SUMMARY | 2024-08-18 10:05 | XMS_ITS | Encounter Summary ---
Author Organization [facility] Address [address] [facility] [place] [address] [place] [address] Care Team Providers Care Road Packer Operator Name Role Phone Monico Reynoso MD Primary Care Provider [phone] Reason for Visit * Consultation/Treatment (Routine) - Closed Specialty Diagnoses / Procedures Referred By Cecy gage Referred To Contact WOUND CARE / [facility] Wound Care Diagnoses Skin graft (allograft) (autograft) failure Procedures HYPERBARIC OXYGEN PROCEDURE [facility] [address] [place] [address] Phone: tel: [facility] [address] [place] [address] Phone: tel: Referral ID Status Reason Start Date Expiration Date V isits Requested Visits Authorized [id number] Closed Hyperbaric Oxygen - HBO 02/21/2022 04/07/2022 20 20 Encounter Details Date Type Department Care Team (Latest Contact Info) Description 03/21/2022 8:00 AM CDT - 03/21/2022 11:59 PM CDT Hospital Encounter [facility] [address] [place], [place] [address] Dick Abraham MD [address] [place] [address] Discharge Disposition: Home or Self Care (Routine Discharge) Social History Tobacco Use Types Packs/Day Years Used Date Smoking Tobacco: Never Assessed Comments No Sex and Gender Information Value Date Recorded Sex Assigned at Not on file 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
--- OUTSIDE RECORDS SUMMARY | 2024-08-18 10:06 | XMS_ITS | Encounter Summary ---
Author Organization [facility] Address [address] [facility] 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 No / Unsure 03/06/2022 8:38 AM CDT documented as of this encounter Plan of Treatment Not on file documented as of this encounter Visit Diagnoses Not on filedocumented in this encounter Care Teams Bobbin Marker Relationship Specialty Start Date End Date Monico Reynoso MD [address] [place] [address] PCP - General FAMILY PRACTICE 08/26/21 10/03/22 documented as of this encounter
--- OUTSIDE RECORDS SUMMARY | 2024-08-18 10:06 | XMS_ITS | Encounter Summary ---
Author Organization [facility] Address [address] [facility] [place] [address] [place] [address] Care Team Providers Care Shredding Machine Knife Changer Name Role Phone Monico Reynoso MD Primary Care Provider [phone] Reason for Visit * Consultation/Treatment (Routine) - Closed Specialty Diagnoses / Procedures Referred By Cecy gage Referred To Contact WOUND CARE / [facility] Wound Care Diagnoses Skin graft (allograft) (autograft) failure Procedures HYPERBARIC OXYGEN PROCEDURE [facility] [place] [address] [place] [address] Phone: tel: [facility] [address] [place] [address] Phone: tel: Referral ID Status Reason Start Date Expiration Date V isits Requested Visits Authorized [id number] Closed Hyperbaric Oxygen - HBO 02/21/2022 04/07/2022 20 20 Encounter Details Date Type Department Care Team (Latest Contact Info) Description 02/27/2022 8:00 AM CDT - 02/27/2022 11:59 PM CDT Hospital Encounter [facility] [address] [place] [address] Dick Abraham MD [address] [place] [address] Jeff Zambrano DO [address] [place] [address] Discharge Disposition: Home or Self Care (Routine Discharge) Social History Tobacco Use Types Packs/Day Years Used Date Smoking Tobacco: Never Assessed Comments No Sex and Gender Information Value Date Recorded Sex Assigned at Not on file 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 No / Unsure 02/27/2022 8:05 AM CDT documented as of this encounter Plan of Treatment Not on file documented as of this encounter Visit Diagnoses Not on filedocumented in this encounter Care Teams Shredding Machine Knife Changer Relationship Specialty Start Date End Date Monico Reynoso MD [address] [place] [address] PCP - General FAMILY PRACTICE 08/26/21 10/03/22 documented as of this encounter
--- OUTSIDE RECORDS SUMMARY | 2024-08-18 10:06 | XMS_ITS | Encounter Summary ---
Author Organization [facility] Address [address] [facility] [place] [address] [place] [address] Care Team Providers Care Burial Vault Deliverer And Installer Name Role Phone Monico Reynoso MD Primary Care Provider [phone] Reason for Visit * Consultation/Treatment (Routine) - Closed Specialty Diagnoses / Procedures Referred By Cecy gage Referred To Contact WOUND CARE / [facility] Wound Care Diagnoses Skin graft (allograft) (autograft) failure Procedures HYPERBARIC OXYGEN PROCEDURE [facility] [address] [place] [address] Phone: tel: [facility] [address] [place] [address] Phone: tel: Referral ID Status Reason Start Date Expiration Date V isits Requested Visits Authorized [id number] Closed Hyperbaric Oxygen - HBO 02/21/2022 04/07/2022 20 20 Encounter Details Date Type Department Care Team (Latest Contact Info) Description 03/15/2022 8:00 AM CDT - 03/15/2022 11:59 PM CDT Hospital Encounter [facility] [address] [place] [address] Mili Garrett, JACK [address] [place] [address] Discharge Disposition: Home or Self Care (Routine Discharge) Social History Tobacco Use Types Packs/Day Years Used Date Smoking Tobacco: Never Assessed Comments No Sex and Gender Information Value Date Recorded Sex Assigned at Not on file Legal 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
--- OUTSIDE RECORDS SUMMARY | 2024-08-18 10:06 | XMS_ITS | Encounter Summary ---
Author Organization [facility] Address [address] [place] [address] [place] [address] Care Team Providers Care Vp Legal Affairs Name Role Phone Monico Reynoso MD Primary Care Provider [phone] Reason for Visit * Consultation/Treatment (Routine) - Closed Specialty Diagnoses / Procedures Referred By Cecy gage Referred To Contact WOUND CARE / [facility] Wound Care Diagnoses Skin graft (allograft) (autograft) failure Procedures HYPERBARIC OXYGEN PROCEDURE [facility] [place] [address] [place] [address] Phone: tel: [facility] [address] [place] [address] Phone: tel: Referral ID Status Reason Start Date Expiration Date V isits Requested Visits Authorized [id number] Closed Hyperbaric Oxygen - HBO 02/21/2022 04/07/2022 20 20 Encounter Details Date Type Department Care Team (Latest Contact Info) Description 03/08/2022 8:00 AM CDT - 03/08/2022 11:59 PM CDT Hospital Encounter [facility] [address] [place], [place] [address] Jeff Zambrano DO [address] [place], [place] [address] Discharge Disposition: Home or Self Care (Routine Discharge) Social History Tobacco Use Types Packs/Day Years Used Date Smoking Tobacco: Never Assessed Comments No Sex and Gender Information Value Date Recorded Sex Assigned at Not on file 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 No / Unsure 03/08/2022 8:30 AM CDT documented as of this encounter Plan of Treatment Not on file documented as of this encounter Visit Diagnoses Not on filedocumented in this encounter Care Teams Vp Legal Affairs Relationship Specialty Start Date End Date Monico Reynoso MD [address] [place] [address] PCP - General FAMILY PRACTICE 08/26/21 10/03/22 documented as of this encounter
--- OUTSIDE RECORDS SUMMARY | 2024-08-18 10:06 | XMS_ITS | Encounter Summary ---
Author Organization [facility] Address [address] [facility] [place] [address] [place] [address] Care Team Providers Care Electrical Contacts Adjuster Name Role Phone Monico Reynoso MD Primary Care Provider [phone] Reason for Visit * Consultation/Treatment (Routine) - Closed Specialty Diagnoses / Procedures Referred By Cecy gage Referred To Contact WOUND CARE / [facility] Wound Care Diagnoses Skin graft (allograft) (autograft) failure Procedures HYPERBARIC OXYGEN PROCEDURE [facility] [address] [place] [address] Phone: tel: [facility] [address] [place] [address] Phone: tel: Referral ID Status Reason Start Date Expiration Date V isits Requested Visits Authorized [id number] Closed Hyperbaric Oxygen - HBO 02/21/2022 04/07/2022 20 20 Encounter Details Date Type Department Care Team (Latest Contact Info) Description 03/09/2022 8:00 AM CDT - 03/09/2022 11:59 PM CDT Hospital Encounter [facility] [address] [place], [place] [address] [phone] Jeff Talbert MD [address] [place] [address] Discharge Disposition: Home or Self Care (Routine Discharge) Social History Tobacco Use Types Packs/Day Years Used Date Smoking Tobacco: Never Assessed Comments No Sex and Gender Information Value Date Recorded Sex Assigned at Not on file 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
--- OUTSIDE RECORDS SUMMARY | 2024-08-18 10:06 | XMS_ITS | Encounter Summary ---
Author Organization [facility] - [facility] Address [address] [facility] 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 No / Unsure 02/21/2022 8:14 AM CDT documented as of this encounter Plan of Treatment Not on file documented as of this encounter Visit Diagnoses Not on filedocumented in this encounter Care Teams Certified Medical Technician Relationship Specialty Start Date End Date Monico Reynoso MD [address] [place] [address] PCP - General FAMILY PRACTICE 08/26/21 10/03/22 documented as of this encounter
--- OUTSIDE RECORDS SUMMARY | 2024-08-18 10:06 | XMS_ITS | Encounter Summary ---
Author Organization [facility] - [facility] Address [address] [facility] 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 No / Unsure 03/10/2022 8:05 AM CDT documented as of this encounter Plan of Treatment Not on file documented as of this encounter Visit Diagnoses Not on filedocumented in this encounter Care Teams Signal Intelligence/Electronic Warfare Relationship Specialty Start Date End Date Monico Reynoso MD [address] [place] [address] PCP - General FAMILY PRACTICE 08/26/21 10/03/22 documented as of this encounter
--- OUTSIDE RECORDS SUMMARY | 2024-08-18 10:06 | XMS_ITS | Encounter Summary ---
Author Organization [facility] Address [address] [facility] [place] [address] [place] [address] Care Team Providers Care Html Developer Name Role Phone Monico Reynoso MD Primary Care Provider [phone] Reason for Visit * Consultation/Treatment (Routine) - Closed Specialty Diagnoses / Procedures Referred By Cecy gage Referred To Contact WOUND CARE / [facility] Wound Care Diagnoses Skin graft (allograft) (autograft) failure Procedures HYPERBARIC OXYGEN PROCEDURE [facility] [place] [address] [place] [address] Phone: tel: [facility] [address] [place] [address] Phone: tel: Referral ID Status Reason Start Date Expiration Date V isits Requested Visits Authorized [id number] Closed Hyperbaric Oxygen - HBO 02/21/2022 04/07/2022 20 20 Encounter Details Date Type Department Care Team (Latest Contact Info) Description 03/06/2022 8:00 AM CDT - 03/06/2022 11:59 PM CDT Hospital Encounter [facility] [address] [place], [place] [address] Jeff Zambrano DO [address] [place], [place] [address] Discharge Disposition: Home or Self Care (Routine Discharge) Social History Tobacco Use Types Packs/Day Years Used Date Smoking Tobacco: Never Assessed Comments No Sex and Gender Information Value Date Recorded Sex Assigned at Not on file Legal Sex Female 11:[address]CHNOLOGIST Gender Identity Not on file Sexual Orientation [...] on filedocumented in this encounter Care Teams Html Developer Relationship Specialty Start Date End Date Monico Reynoso MD [address] [place] [address] PCP - General FAMILY PRACTICE 08/26/21 10/03/22 documented as of this encounter
--- OUTSIDE RECORDS SUMMARY | 2024-08-18 10:06 | XMS_ITS | Encounter Summary ---
Author Organization [facility] - [facility] Address [address] [facility] 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 No / Unsure 02/23/2022 8:30 AM CDT documented as of this encounter Plan of Treatment Not on file documented as of this encounter Visit Diagnoses Not on filedocumented in this encounter Care Teams Paper Bag Press Operator Relationship Specialty Start Date End Date Monico Reynoso MD [address] [place] [address] PCP - General FAMILY PRACTICE 08/26/21 10/03/22 documented as of this encounter
--- OUTSIDE RECORDS SUMMARY | 2024-08-18 10:06 | XMS_ITS | Encounter Summary ---
Author Organization [facility] Address [address] [facility] [address] [place] [address] Care Team Providers Care Playground Aide Name Role Phone Monico Reynoso MD Primary Care Provider [phone] Reason for Visit * Consultation/Treatment (Routine) - Closed Specialty Diagnoses / Procedures Referred By Cecy gage Referred To Contact WOUND CARE / [facility] Wound Care Diagnoses Skin graft (allograft) (autograft) failure Procedures HYPERBARIC OXYGEN PROCEDURE [facility] [address] [place] [address] Phone: tel: [facility] [address] [place] [address] Phone: tel: Referral ID Status Reason Start Date Expiration Date V isits Requested Visits Authorized [id number] Closed Hyperbaric Oxygen - HBO 02/21/2022 04/07/2022 20 20 Encounter Details Date Type Department Care Team (Latest Contact Info) Description 03/13/2022 8:00 AM CDT - 03/13/2022 11:59 PM CDT Hospital Encounter 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 No / Unsure 03/13/2022 8:35 AM CDT documented as of this encounter Plan of Treatment Not on file documented as of this encounter Visit Diagnoses Not on filedocumented in this encounter Care Teams Playground Aide Relationship Specialty Start Date End Date Monico Reynoso MD [address] [place] [address] PCP - General FAMILY PRACTICE 08/26/21 10/03/22 documented as of this encounter
--- OUTSIDE RECORDS SUMMARY | 2024-08-18 10:06 | XMS_ITS | Encounter Summary ---
Author Organization [facility] Address [address] 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
--- OUTSIDE RECORDS SUMMARY | 2024-08-18 10:06 | XMS_ITS | Encounter Summary ---
Author Organization [facility] Address [address] [place] [address] [place] [address] Care Team Providers Care Nba Player Name Role Phone Monico Reynoso MD Primary Care Provider [phone] Reason for Visit * Consultation/Treatment (Routine) - Closed Specialty Diagnoses / Procedures Referred By Cecy gage Referred To Contact WOUND CARE / [facility] Wound Care Diagnoses Skin graft (allograft) (autograft) failure Procedures HYPERBARIC OXYGEN PROCEDURE [facility] [address] [place] [address] Phone: tel: [facility] [address] [place] [address] Phone: tel: Referral ID Status Reason Start Date Expiration Date V isits Requested Visits Authorized [id number] Closed Hyperbaric Oxygen - HBO 02/21/2022 04/07/2022 20 20 Encounter Details Date Type Department Care Team (Latest Contact Info) Description 02/23/2022 8:00 AM CDT - 02/23/2022 11:59 PM CDT Hospital Encounter [facility] [address] [place], [place] [address] [phone] Jeff Talbert MD [address] [place] [address] Discharge Disposition: Home or Self Care (Routine Discharge) Social History Tobacco Use Types Packs/Day Years Used Date Smoking Tobacco: Never Assessed Comments No Sex and Gender Information Value Date Recorded Sex Assigned at Not on file Legal 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
--- OUTSIDE RECORDS SUMMARY | 2024-08-18 10:06 | XMS_ITS | Encounter Summary ---
Author Organization [facility] Address [address] [place] [address] [place] [address] Care Team Providers Care Medical Billing Specialist Name Role Phone Monico Reynoso MD Primary Care Provider [phone] Reason for Visit * Consultation/Treatment (Routine) - Closed Specialty Diagnoses / Procedures Referred By Cecy gage Referred To Contact WOUND CARE / [facility] Wound Care Diagnoses Skin graft (allograft) (autograft) failure Procedures HYPERBARIC OXYGEN PROCEDURE [facility] [address] [place] [address] Phone: tel: [facility] [address] [place] [address] Phone: tel: Referral ID Status Reason Start Date Expiration Date V isits Requested Visits Authorized [id number] Closed Hyperbaric Oxygen - HBO 02/21/2022 04/07/2022 20 20 Encounter Details Date Type Department Care Team (Latest Contact Info) Description 03/07/2022 8:00 AM CDT - 03/07/2022 11:59 PM CDT Hospital Encounter [facility] [address] [place], [place] [address] Dick Abraham MD [address] [place] [address] Discharge Disposition: Home or Self Care (Routine Discharge) Social History Tobacco Use Types Packs/Day Years Used Date Smoking Tobacco: Never Assessed Comments No Sex and Gender Information Value Date Recorded Sex Assigned at Not on file 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
--- OUTSIDE RECORDS SUMMARY | 2024-08-18 10:06 | XMS_ITS | Encounter Summary ---
Author Organization [facility] Address [address] [facility] [place] [address] [place] [address] Care Team Providers Care Soap Mixer Name Role Phone Monico Reynoso MD Primary Care Provider [phone] Reason for Visit * Consultation/Treatment (Routine) - Closed Specialty Diagnoses / Procedures Referred By Cecy gage Referred To Contact WOUND CARE / [facility] Wound Care Diagnoses Skin graft (allograft) (autograft) failure Procedures HYPERBARIC OXYGEN PROCEDURE [facility] [place] [address] [place] [address] Phone: tel: [facility] [address] [place] [address] Phone: tel: Referral ID Status Reason Start Date Expiration Date V isits Requested Visits Authorized [id number] Closed Hyperbaric Oxygen - HBO 02/21/2022 04/07/2022 20 20 Encounter Details Date Type Department Care Team (Latest Contact Info) Description 03/10/2022 8:00 AM CDT - 03/10/2022 11:59 PM CDT Hospital Encounter [facility] [address] [place], [place] [address] Marcello Morales, DO [address] [place], [place] [address] Discharge Disposition: Home or Self Care (Routine Discharge) Social History Tobacco Use Types Packs/Day Years Used Date Smoking Tobacco: Never Assessed Comments No Sex and Gender Information Value Date Recorded Sex Assigned at Not on file Legal Sex Female 11:19 PM HIDE PASTER Gender Identity Not on file Sexual Orientation [...] on filedocumented in this encounter Care Teams Soap Mixer Relationship Specialty Start Date End Date Monico Reynoso MD [address] [place] [address] PCP - General FAMILY PRACTICE 08/26/21 10/03/22 documented as of this encounter
--- OUTSIDE RECORDS SUMMARY | 2024-08-18 10:06 | XMS_ITS | Encounter Summary ---
Author Organization [facility] - [facility] Address [address] [facility] [place] [address] [place] [address] Care Team Providers Care Paver Operator Name Role Phone Monico Reynoso MD Primary Care Provider [phone] Encounter Details Date Type Department Care Team (Latest Contact Info) Description 02/27/2022 Travel Social History Tobacco Use Types Packs/Day Years Used Date Smoking Tobacco: Never Assessed Comments No Sex and Gender Information Value Date Recorded Sex Assigned at Not on file Legal Sex Female 11:19 PM BOOKING PRIZER Gender Identity Not on file Sexual Orientation [...] on filedocumented in this encounter Care Teams Paver Operator Relationship Specialty Start Date End Date Monico Reynoso MD [address] [place] [address] PCP - General FAMILY PRACTICE 08/26/21 10/03/22 documented as of this encounter
--- OUTSIDE RECORDS SUMMARY | 2024-08-18 10:06 | XMS_ITS | Encounter Summary ---
Author Organization [facility] - [facility] Address [address] [place] [address] [place] [address] Care Team Providers Care Retail Sales Specialist Name Role Phone Monico Reynoso MD Primary Care Provider [phone] Encounter Details Date Type Department Care Team (Latest Contact Info) Description 03/13/2022 Travel Social History Tobacco Use Types Packs/Day Years Used Date Smoking Tobacco: Never Assessed Comments No Sex and Gender Information Value Date Recorded Sex Assigned at Not on file Legal Sex Female 11:19 PM DRAPERY EXAMINER Gender Identity Not on file Sexual Orientation [...] on filedocumented in this encounter Care Teams Retail Sales Specialist Relationship Specialty Start Date End Date Monico Reynoso MD [address] [place] [address] PCP - General FAMILY PRACTICE 08/26/21 10/03/22 documented as of this encounter
--- OUTSIDE RECORDS SUMMARY | 2024-08-18 10:07 | XMS_ITS | Encounter Summary ---
Author Organization [facility] Address [address] [place] [address] [place] [address] Care Team Providers Care Risk Assessment Analyst Name Role Phone Monico Reynoso MD Primary Care Provider [phone] Reason for Visit * Consultation/Treatment (Routine) - Closed Specialty Diagnoses / Procedures Referred By Cecy gage Referred To Contact [facility] Wound Care Diagnoses Skin graft (allograft) (autograft) failure Procedures HYPERBARIC OXYGEN PROCEDURE Mili Garrett, MARINE SURVEYOR [address] [place] [address] Phone: tel: fax: [facility] [address] [place] [address] Phone: tel: Referral ID Status Reason Start Date Expiration Date Visits Re quested Visits Authorized [id number] Closed 01/25/2022 04/25/2022 16 16 Encounter Details Date Type Department Care Team (Latest Contact Info) Description 02/08/2022 8:00 AM CDT - 02/08/2022 11:59 PM CDT Hospital Encounter [facility] [address] [place] [address] Mili Garrett, MARINE SURVEYOR [address] [place], [place] [address] Jeff Zambrano DO [address] [place] [address] Discharge Disposition: Home or Self Care (Routine Discharge) Social History Tobacco Use Types Packs/Day Years Used Date Smoking Tobacco: Never Assessed Comments No Sex and Gender Information Value Date Recorded Sex Assigned at Not on file Legal Sex Female 11:19 PM CABLE TENDER Gender Identity Not on file Sexual Orientation Not on file COVID-19 Exposure Response Date Recorded In the last 10 days, have yo u been in contact with someone who was confirmed or suspected to have Coronavirus/COVID-19? No / Unsure 02/08/2022 8:28 AM CDT documented as of this encounter Plan of Treatment Not on file documented as of this encounter Visit Diagnoses Not on filedocumented in this encounter Care Teams Risk Assessment Analyst Relationship Specialty Start Date End Date Monico Reynoso MD [address] [place] [address] PCP - General FAMILY PRACTICE 08/26/21 10/03/22 documented as of this encounter
--- OUTSIDE RECORDS SUMMARY | 2024-08-18 10:07 | XMS_ITS | Encounter Summary ---
Author Organization [facility] Address [address] [place] [address] [place] [address] Care Team Providers Care Legal Writing Professor Name Role Phone Monico Reynoso MD Primary Care Provider [phone] Reason for Visit * Consultation/Treatment (Routine) - Closed Specialty Diagnoses / Procedures Referred By eCcy gage Referred To Contact [facility] Wound Care Diagnoses Skin graft (allograft) (autograft) failure Procedures HYPERBARIC OXYGEN PROCEDURE Mili Garrett, GAS METER READER [address] [place] [address] Phone: tel: fax: [facility] [address] [place] [address] Phone: tel: Referral ID Status Reason Start Date Expiration Date Visits Re quested Visits Authorized [id number] Closed 01/25/2022 04/25/2022 16 16 Encounter Details Date Type Department Care Team (Latest Contact Info) Description 02/15/2022 8:00 AM CDT - 02/15/2022 11:59 PM CDT Hospital Encounter [facility] [address] [place] [address] Mili Garrett, GAS METER READER [address] [place], [place] [address] Jeff Zambrano DO [address] [place] [address] Discharge Disposition: Home or Self Care (Routine Discharge) Social History Tobacco Use Types Packs/Day Years Used Date Smoking Tobacco: Never Assessed Comments No Sex and Gender Information Value Date Recorded Sex Assigned at Not on file Legal Sex Female 11:19 PM ONLINE ACTIVIST Gender Identity Not on file Sexual Orientation Not on file COVID-19 Exposure Response Date Recorded In the last 10 days, have yo u been in contact with someone who was confirmed or suspected to have Coronavirus/COVID-19? No / Unsure 02/15/2022 9:09 AM CDT documented as of this encounter Plan of Treatment Not on file documented as of this encounter Visit Diagnoses Not on filedocumented in this encounter Care Teams Legal Writing Professor Relationship Specialty Start Date End Date Monico Reynoso MD [address] [place] [address] PCP - General FAMILY PRACTICE 08/26/21 10/03/22 documented as of this encounter
--- OUTSIDE RECORDS SUMMARY | 2024-08-18 10:07 | XMS_ITS | Encounter Summary ---
Author Organization [facility] Address [address] [facility] [place] [address] [place] [address] Care Team Providers Care Vegetable Worker Name Role Phone Monico Reynoso MD Primary Care Provider [phone] Reason for Visit * Consultation/Treatment (Routine) - Closed Specialty Diagnoses / Procedures Referred By Cecy gage Referred To Contact [facility] Wound Care Diagnoses Skin graft (allograft) (autograft) failure Procedures HYPERBARIC OXYGEN PROCEDURE Mili Garrett, JACK [address] [place] [address] Phone: tel: fax: [facility] [address] [place] [address] Phone: tel: Referral ID Status Reason Start Date Expiration Date Visits Re quested Visits Authorized [id number] Closed 01/25/2022 04/25/2022 16 16 Encounter Details Date Type Department Care Team (Latest Contact Info) Description 02/13/2022 8:00 AM CDT - 02/13/2022 11:59 PM CDT Hospital Encounter [facility] [address] [place] [address] Jeff Zambrano DO [address] [place] [address] Discharge Disposition: Home or Self Care (Routine Discharge) Social History Tobacco Use Types Packs/Day Years Used Date Smoking Tobacco: Never Assessed Comments No Sex and Gender Information Value Date Recorded Sex Assigned at Not on file Legal Sex Female 11:19 PM TILE GRADER Gender Identity Not on file Sexual Orientation Not on file COVID-19 Exposure Response Date Recorded In the last 10 days, have yo u been in contact with someone who was confirmed or suspected to have Coronavirus/COVID-19? No / Unsure 02/13/2022 10:39 AM CDT documented as of this encounter Plan of Treatment Not on file documented as of this encounter Visit Diagnoses Not on filedocumented in this encounter Care Teams Vegetable Worker Relationship Specialty Start Date End Date Monico Reynoso MD [address] [place] [address] PCP - General FAMILY PRACTICE 08/26/21 10/03/22 documented as of this encounter
--- OUTSIDE RECORDS SUMMARY | 2024-08-18 10:07 | XMS_ITS | Encounter Summary ---
Author Organization [facility] - [facility] Address [address] [facility] [place] [address] [place] [address] Care Team Providers Care Senior Oracle Database Developer Name Role Phone Monico Reynoso MD Primary Care Provider [phone] Encounter Details Date Type Department Care Team (Latest Contact Info) Description 02/08/2022 Travel Social History Tobacco Use Types Packs/Day Years Used Date Smoking Tobacco: Never Assessed Comments No Sex and Gender Information Value Date Recorded Sex Assigned at Not on file Legal Sex Female 11:19 PM FAT PURIFICATION WORKER Gender Identity Not on file Sexual [...] on filedocumented in this encounter Care Teams Senior Oracle Database Developer Relationship Specialty Start Date End Date Monico Reynoso MD [address] [place] [address] PCP - General FAMILY PRACTICE 08/26/21 10/03/22 documented as of this encounter
--- OUTSIDE RECORDS SUMMARY | 2024-08-18 10:07 | XMS_ITS | Encounter Summary ---
Author Organization [facility] Address [address] [place] [address] [place] [address] Care Team Providers Care Remote Inpatient Coder Name Role Phone Monico Reynoso MD Primary Care Provider [phone] Reason for Visit * Consultation/Treatment (Routine) - Closed Specialty Diagnoses / Procedures Referred By Cecy gage Referred To Contact [facility] Wound Care Diagnoses Skin graft (allograft) (autograft) failure Procedures HYPERBARIC OXYGEN PROCEDURE Mili Garrett, JACK [address] [place] [address] Phone: tel: fax: [facility] [address] [place] [address] Phone: tel: Referral ID Status Reason Start Date Expiration Date Visits Re quested Visits Authorized [id number] Closed 01/25/2022 04/25/2022 16 16 Encounter Details Date Type Department Care Team (Latest Contact Info) Description 02/10/2022 8:00 AM CDT - 02/10/2022 11:59 PM CDT Hospital Encounter [facility] [address] [place], [place] [address] Marcello Morales, DO [address] [place], [place] [address] Discharge Disposition: Home or Self Care (Routine Discharge) Social History Tobacco Use Types Packs/Day Years Used Date Smoking Tobacco: Never Assessed Comments No Sex and Gender Information Value Date Recorded Sex Assigned at Not on file Legal Sex Female 11:19 PM PERFORMANCE 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 No / Unsure 02/10/2022 8:15 AM CDT documented as of this encounter Plan of Treatment Not on file documented as of this encounter Visit Diagnoses Not on filedocumented in this encounter Care Teams Remote Inpatient Coder Relationship Specialty Start Date End Date Monico Reynoso MD [address] [place] [address] PCP - General FAMILY PRACTICE 08/26/21 10/03/22 documented as of this encounter
--- OUTSIDE RECORDS SUMMARY | 2024-08-18 10:07 | XMS_ITS | Encounter Summary ---
Author Organization [facility] Address [address] [place] [address] [place] [address] Care Team Providers Care Elect Equip Maint Eng Name Role Phone Monico Reynoso MD Primary Care Provider [phone] Reason for Visit * Consultation/Treatment (Routine) - Closed Specialty Diagnoses / Procedures Referred By Cecy gage Referred To Contact WOUND CARE / [facility] Wound Care Diagnoses Skin graft (allograft) (autograft) failure Procedures HYPERBARIC OXYGEN PROCEDURE [facility] [address] [place] [address] Phone: tel: [facility] [address] [place] [address] Phone: tel: Referral ID Status Reason Start Date Expiration Date V isits Requested Visits Authorized [id number] Closed Hyperbaric Oxygen - HBO 02/21/2022 04/07/2022 20 20 Encounter Details Date Type Department Care Team (Latest Contact Info) Description 02/21/2022 8:00 AM CDT - 02/21/2022 11:59 PM CDT Hospital Encounter [facility] [address] [place], [place] [address] Dick Abraham MD [address] [place] [address] Discharge Disposition: Home or Self Care (Routine Discharge) Social History Tobacco Use Types Packs/Day Years Used Date Smoking Tobacco: Never Assessed Comments No Sex and Gender Information Value Date Recorded Sex Assigned at Not on file Legal Sex Female 11:19 PM TELEPHONE MESSENGER Gender Identity Not on file Sexual Orientation [...] on filedocumented in this encounter Care Teams Elect Equip Maint Eng Relationship Specialty Start Date End Date Monico Reynoso MD [address] [place] [address] PCP - General FAMILY PRACTICE 08/26/21 10/03/22 documented as of this encounter
--- OUTSIDE RECORDS SUMMARY | 2024-08-18 10:07 | XMS_ITS | Encounter Summary ---
Author Organization [facility] Address [address] [facility] [place] [address] [place] [address] Care Team Providers Care Legislative Aide Name Role Phone Monico Reynoso MD Primary Care Provider [phone] Encounter Details Date Type Department Care Team (Latest Contact Info) Description 02/15/2022 Travel Social History Tobacco Use Types Packs/Day Years Used Date Smoking Tobacco: Never Assessed Comments No Sex and Gender Information Value Date Recorded Sex Assigned at Not on file Legal Sex Female 11:19 PM DOCUMENT CONTROL ASSISTANT Gender Identity Not on file Sexual Orientation [...] on filedocumented in this encounter Care Teams Legislative Aide Relationship Specialty Start Date End Date Monico Reynoso MD [address] [place] [address] PCP - General FAMILY PRACTICE 08/26/21 10/03/22 documented as of this encounter
--- OUTSIDE RECORDS SUMMARY | 2024-08-18 10:07 | XMS_ITS | Encounter Summary ---
Author Organization [facility] - [facility] Address [address] [place] [address] [place] [address] Care Team Providers Care Egg Trayer Name Role Phone Monico Reynoso MD Primary Care Provider [phone] Encounter Details Date Type Department Care Team (Latest Contact Info) Description 02/10/2022 Travel Social History Tobacco Use Types Packs/Day Years Used Date Smoking Tobacco: Never Assessed Comments No Sex and Gender Information Value Date Recorded Sex Assigned at Not on file Legal Sex Female 11:19 PM DATA ADMINISTRATOR Gender Identity Not on file Sexual Orientation [...] on filedocumented in this encounter Care Teams Egg Trayer Relationship Specialty Start Date End Date Monico Reynoso MD [address] [place] [address] PCP - General FAMILY PRACTICE 08/26/21 10/03/22 documented as of this encounter
--- OUTSIDE RECORDS SUMMARY | 2024-08-18 10:07 | XMS_ITS | Encounter Summary ---
Author Organization [facility] Address [address] [facility] [place] [address] [place] [address] Care Team Providers Care Social Media Marketer Name Role Phone Monico Reynoso MD Primary Care Provider [phone] Reason for Visit * Consultation/Treatment (Routine) - Closed Specialty Diagnoses / Procedures Referred By Cecy gage Referred To Contact [facility] Wound Care Diagnoses Skin graft (allograft) (autograft) failure Procedures HYPERBARIC OXYGEN PROCEDURE Mili Garrett, JACK [address] [place] [address] Phone: tel: fax: [facility] [address] [place] [address] Phone: tel: Referral ID Status Reason Start Date Expiration Date Visits Re quested Visits Authorized [id number] Closed 01/25/2022 04/25/2022 16 16 Encounter Details Date Type Department Care Team (Latest Contact Info) Description 02/09/2022 8:00 AM CDT - 02/09/2022 11:59 PM CDT Hospital Encounter [facility] [address] [place], [place] [address] Jeff Talbert MD [address] 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 No / Unsure 02/09/2022 7:25 AM CDT documented as of this encounter Plan of Treatment Not on file documented as of this encounter Visit Diagnoses Not on filedocumented in this encounter Care Teams Social Media Marketer Relationship Specialty Start Date End Date Monico Reynoso MD [address] [place] [address] PCP - General FAMILY PRACTICE 08/26/21 10/03/22 documented as of this encounter
--- OUTSIDE RECORDS SUMMARY | 2024-08-18 10:07 | XMS_ITS | Encounter Summary ---
Author Organization [facility] Address [address] [place] [place] [address] [place] [address] Care Team Providers Care Trading Assistant Name Role Phone Monico Reynoso MD Primary Care Provider [phone] Reason for Visit * Consultation/Treatment (Routine) - Closed Specialty Diagnoses / Procedures Referred By Cecy gage Referred To Contact [facility] Wound Care Diagnoses Skin graft (allograft) (autograft) failure Procedures HYPERBARIC OXYGEN PROCEDURE Mili Garrett, TECHNOLOGY MANAGER [address] [place] [address] Phone: tel: fax: [facility] [address] [place] [address] Phone: tel: Referral ID Status Reason Start Date Expiration Date Visits Re quested Visits Authorized [id number] Closed 01/25/2022 04/25/2022 16 16 Encounter Details Date Type Department Care Team (Latest Contact Info) Description 02/16/2022 8:00 AM CDT - 02/16/2022 11:59 PM CDT Hospital Encounter 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
--- OUTSIDE RECORDS SUMMARY | 2024-08-18 10:07 | XMS_ITS | Encounter Summary ---
Author Organization [facility] - [facility] Address [address] [facility] [place] [address] [place] [address] Care Team Providers Care Checker In Name Role Phone Monico Reynoso MD Primary Care Provider [phone] Encounter Details Date Type Department Care Team (Latest Contact Info) Description 02/06/2022 Travel Social History Tobacco Use Types Packs/Day Years Used Date Smoking Tobacco: Never Assessed Comments No Sex and Gender Information Value Date Recorded Sex Assigned at Not on file Legal Sex Female 11:19 PM CONTINUOUS IMPROVEMENT MANAGER Gender Identity Not on file Sexual Orientation Not on file COVID-19 Exposure Response Date Recorded In the last 10 days, have yo u been in contact with someone who was confirmed or suspected to have Coronavirus/COVID-19? No / Unsure 02/06/2022 8:30 AM CDT documented as of this encounter Plan of Treatment Not on file documented as of this encounter Visit Diagnoses Not on filedocumented in this encounter Care Teams Checker In Relationship Specialty Start Date End Date Monico Reynoso MD [address] [place] [address] PCP - General FAMILY PRACTICE 08/26/21 10/03/22 documented as of this encounter
--- OUTSIDE RECORDS SUMMARY | 2024-08-18 10:07 | XMS_ITS | Encounter Summary ---
Author Organization [facility] Address [address] [facility] [place] [address] [place] [address] Care Team Providers Care Home Energy Consultant Supervisor Name Role Phone Monico Reynoso MD Primary Care Provider [phone] Reason for Visit * Consultation/Treatment (Routine) - Closed Specialty Diagnoses / Procedures Referred By Cecy gage Referred To Contact [facility] Wound Care Diagnoses Skin graft (allograft) (autograft) failure Procedures HYPERBARIC OXYGEN PROCEDURE Mili Garrett, JACK [address] [place] [address] Phone: tel: fax: [facility] [address] [place] [address] Phone: tel: Referral ID Status Reason Start Date Expiration Date Visits Re quested Visits Authorized [id number] Closed 01/25/2022 04/25/2022 16 16 Encounter Details Date Type Department Care Team (Latest Contact Info) Description 02/01/2022 7:56 AM CDT - 02/01/2022 11:59 PM CDT Hospital Encounter [facility] [address] [place] [address] Jeff Zambrano DO [address] [place] [address] Discharge Disposition: Home or Self Care (Routine Discharge) Social History Tobacco Use Types Packs/Day Years Used Date Smoking Tobacco: Never Assessed Comments No Sex and Gender Information Value Date Recorded Sex Assigned at Not on file Legal Sex Female 11:19 PM PERFORMANCE IMPROVEMENT DIRECTOR Gender Identity Not on file Sexual Orientation Not on file COVID-19 Exposure Response Date Recorded In the last 10 days, have yo u been in contact with someone who was confirmed or suspected to have Coronavirus/COVID-19? No / Unsure 01/31/2022 6:16 PM CDT documented as of this encounter Plan of Treatment Not on file documented as of this encounter Visit Diagnoses Not on filedocumented in this encounter Care Teams Home Energy Consultant Supervisor Relationship Specialty Start Date End Date Monico Reynoso MD [address] [place] [address] PCP - General FAMILY PRACTICE 08/26/21 10/03/22 documented as of this encounter
--- OUTSIDE RECORDS SUMMARY | 2024-08-18 10:07 | XMS_ITS | Encounter Summary ---
Author Organization [facility] - [facility] Address [address] [facility] [place] [address] [place] [address] Care Team Providers Care Scientific Advisor Name Role Phone Monico Reynoso MD Primary Care Provider [phone] Encounter Details Date Type Department Care Team (Latest Contact Info) Description 02/17/2022 Travel Social History Tobacco Use Types Packs/Day Years Used Date Smoking Tobacco: Never Assessed Comments No Sex and Gender Information Value Date Recorded Sex Assigned at Not on file Legal Sex Female 11:19 PM HAIR PREPARER Gender Identity Not on file Sexual Orientation Not on file COVID-19 Exposure Response Date Recorded In the last 10 days, have yo u been in contact with someone who was confirmed or suspected to have Coronavirus/COVID-19? No / Unsure 02/17/2022 7:44 AM CDT documented as of this encounter Plan of Treatment Not on file documented as of this encounter Visit Diagnoses Not on filedocumented in this encounter Care Teams Scientific Advisor Relationship Specialty Start Date End Date Monico Reynoso MD [address] [place] [address] PCP - General FAMILY PRACTICE 08/26/21 10/03/22 documented as of this encounter
--- OUTSIDE RECORDS SUMMARY | 2024-08-18 10:07 | XMS_ITS | Encounter Summary ---
Author Organization [facility] - [facility] Address [address] [facility] 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
--- OUTSIDE RECORDS SUMMARY | 2024-08-18 10:07 | XMS_ITS | Encounter Summary ---
Author Organization [facility] Address [address] [facility] [place] [address] [place] [address] Care Team Providers Care Home Staging Specialist Name Role Phone Monico Reynoso MD Primary Care Provider [phone] Reason for Visit * Consultation/Treatment (Routine) - Closed Specialty Diagnoses / Procedures Referred By Cecy gage Referred To Contact [facility] Wound Care Diagnoses Skin graft (allograft) (autograft) failure Procedures HYPERBARIC OXYGEN PROCEDURE Mili Garrett, JACK [address] [place] [address] Phone: tel: fax: [facility] [address] [place] [address] Phone: tel: Referral ID Status Reason Start Date Expiration Date Visits Re quested Visits Authorized [id number] Closed 01/25/2022 04/25/2022 16 16 Encounter Details Date Type Department Care Team (Latest Contact Info) Description 02/14/2022 8:00 AM CDT - 02/14/2022 11:59 PM CDT Hospital Encounter [facility] [place] [address] [place] [address] Dick Abraham MD [address] [place] [address] Discharge Disposition: Home or Self Care (Routine Discharge) Social History Tobacco Use Types Packs/Day Years Used Date Smoking Tobacco: Never Assessed Comments No Sex and Gender Information Value Date Recorded Sex Assigned at Not on file 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
--- OUTSIDE RECORDS SUMMARY | 2024-08-18 10:07 | XMS_ITS | Encounter Summary ---
Author Organization [facility] Address [address] [facility] [place] [address] [place] [address] Care Team Providers Care Tile And Marble Installer Name Role Phone Monico Reynoso MD Primary Care Provider [phone] Reason for Visit * Consultation/Treatment (Routine) - Closed Specialty Diagnoses / Procedures Referred By Cecy gage Referred To Contact [facility] Wound Care Diagnoses Skin graft (allograft) (autograft) failure Procedures HYPERBARIC OXYGEN PROCEDURE Mili Garrett, JACK [address] [place] [address] Phone: tel: fax: [facility] [address] [place] [address] Phone: tel: Referral ID Status Reason Start Date Expiration Date Visits Re quested Visits Authorized [id number] Closed 01/25/2022 04/25/2022 16 16 Encounter Details Date Type Department Care Team (Latest Contact Info) Description 02/07/2022 8:00 AM CDT - 02/07/2022 11:59 PM CDT Hospital Encounter [facility] [place] [address] [place] [address] Dick Abraham MD [address] [place] [address] Discharge Disposition: Home or Self Care (Routine Discharge) Social History Tobacco Use Types Packs/Day Years Used Date Smoking Tobacco: Never Assessed Comments No Sex and Gender Information Value Date Recorded Sex Assigned at Not on file Legal 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
--- OUTSIDE RECORDS SUMMARY | 2024-08-18 10:07 | XMS_ITS | Encounter Summary ---
Author Organization [facility] Address [address] [place] [address] [place] [address] Care Team Providers Care Machine Staker Name Role Phone Monico Reynoso MD Primary Care Provider [phone] Reason for Visit * Consultation/Treatment (Routine) - Closed Specialty Diagnoses / Procedures Referred By Cecy gage Referred To Contact [facility] Wound Care Diagnoses Skin graft (allograft) (autograft) failure Procedures HYPERBARIC OXYGEN PROCEDURE Mili Garrett, JACK [address] [place] [address] Phone: tel: fax: [facility] [address] [place] [address] Phone: tel: Referral ID Status Reason Start Date Expiration Date Visits Re quested Visits Authorized [id number] Closed 01/25/2022 04/25/2022 16 16 Encounter Details Date Type Department Care Team (Latest Contact Info) Description 02/17/2022 8:00 AM CDT - 02/17/2022 11:59 PM CDT Hospital Encounter 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
--- OUTSIDE RECORDS SUMMARY | 2024-08-18 10:07 | XMS_ITS | Encounter Summary ---
Author Organization [facility] - [facility] Address [address] [facility] 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
--- OUTSIDE RECORDS SUMMARY | 2024-08-18 10:07 | XMS_ITS | Encounter Summary ---
Author Organization [facility] Address [address] [place] [place] [address] [place] [address] Care Team Providers Care Plastics Spreading Machine Operator Name Role Phone Monico Reynoso MD Primary Care Provider [phone] Reason for Visit * Consultation/Treatment (Routine) - Closed Specialty Diagnoses / Procedures Referred By Cecy gage Referred To Contact [facility] Wound Care Diagnoses Skin graft (allograft) (autograft) failure Procedures HYPERBARIC OXYGEN PROCEDURE Mili Garrett, JACK [address] [place] [address] Phone: tel: fax: [facility] [address] [place] [address] Phone: tel: Referral ID Status Reason Start Date Expiration Date Visits Re quested Visits Authorized [id number] Closed 01/25/2022 04/25/2022 16 16 Encounter Details Date Type Department Care Team (Latest Contact Info) Description 02/06/2022 8:00 AM CDT - 02/06/2022 11:59 PM CDT Hospital Encounter [facility] [address] [place] [address] Jeff Zambrano DO [address] [place] [address] Discharge Disposition: Home or Self Care (Routine Discharge) Social History Tobacco Use Types Packs/Day Years Used Date Smoking Tobacco: Never Assessed Comments No Sex and Gender Information Value Date Recorded Sex Assigned at Not on file 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
--- OUTSIDE RECORDS SUMMARY | 2024-08-18 10:08 | XMS_ITS | Encounter Summary ---
Author Organization [facility] - [facility] Address [address] [facility] 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 No / Unsure 01/04/2022 8:57 PM CDT documented as of this encounter Plan of Treatment Not on file documented as of this encounter Visit Diagnoses Not on filedocumented in this encounter Care Teams Ems Helicopter Pilot Relationship Specialty Start Date End Date Monico Reynoso MD [address] [place] [address] PCP - General FAMILY PRACTICE 08/26/21 10/03/22 documented as of this encounter
--- OUTSIDE RECORDS SUMMARY | 2024-08-18 10:08 | XMS_ITS | Encounter Summary ---
Author Organization [facility] - [facility] Address [address] [facility] 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 No / Unsure 01/24/2022 2:21 PM CDT documented as of this encounter Plan of Treatment Not on file documented as of this encounter Visit Diagnoses Not on filedocumented in this encounter Care Teams Coremaking Machine Setter Relationship Specialty Start Date End Date Monico Reynoso MD [address] [place] [address] PCP - General FAMILY PRACTICE 08/26/21 10/03/22 documented as of this encounter
--- OUTSIDE RECORDS SUMMARY | 2024-08-18 10:08 | XMS_ITS | Encounter Summary ---
Author Organization [facility] Address [facility] [facility] [place] [address] [place] [address] Care Team Providers Care Health Systems Analyst Name Role Phone Monico Reynoso MD Primary Care Provider [phone] Reason for Visit * Consultation/Treatment (Routine) - Closed Specialty Diagnoses / Procedures Referred By Cecy gage Referred To Contact FAMILY PRACTICE / [facility] Wound Care Diagnoses Skin graft (allograft) (autograft) failure Failed Flap Procedures HYPERBARIC OXYGEN PROCEDURE [facility] [address] [place] [address] Phone: tel: Jeff Zambrano DO Phone: tel: fax: Referral ID Status Reason Start Date Expiration Date V isits Requested Visits Authorized [id number] Closed Hyperbaric Oxygen - HBO 12/21/2021 03/21/2022 24 24 Encounter Details Date Type Department Care Team (Latest Contact Info) Description 01/23/2022 8:00 AM CDT - 01/23/2022 11:59 PM CDT Hospital Encounter [facility] [address] [place], [place] [address] Jeff Zambrano DO [address] [place], [place] [address] Mili Garrett APRN [address] [place], [place] [address] Discharge Disposition: Home or Self Care (Routine Discharge) Social History Tobacco Use Types Packs/Day Years Used Date Smoking Tobacco: Never Assessed Comments No Sex and Gender Information Value Date Recorded Sex Assigned at Not on file 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 No / Unsure 01/23/2022 8:21 AM CDT documented as of this encounter Plan of Treatment Not on file documented as of this encounter Visit Diagnoses Not on filedocumented in this encounter Care Teams Health Systems Analyst Relationship Specialty Start Date End Date Monico Reynoso MD [address] [place] [address] PCP - General FAMILY PRACTICE 08/26/21 10/03/22 documented as of this encounter
--- OUTSIDE RECORDS SUMMARY | 2024-08-18 10:08 | XMS_ITS | Encounter Summary ---
Author Organization [facility] Address [facility] [facility] [place] [address] [place] [address] Care Team Providers Care Ophthalmology Technician Name Role Phone Monico Reynoso MD Primary Care Provider [phone] Reason for Visit * Consultation/Treatment (Routine) - Closed Specialty Diagnoses / Procedures Referred By Cecy gage Referred To Contact FAMILY PRACTICE / [facility] Wound Care Diagnoses Skin graft (allograft) (autograft) failure Failed Flap Procedures HYPERBARIC OXYGEN PROCEDURE [facility] [address] [place] [address] Phone: tel: Jeff Zambrano DO Phone: tel: fax: Referral ID Status Reason Start Date Expiration Date V isits Requested Visits Authorized [id number] Closed Hyperbaric Oxygen - HBO 12/21/2021 03/21/2022 24 24 Encounter Details Date Type Department Care Team (Latest Contact Info) Description 01/13/2022 8:15 AM CDT - 01/13/2022 11:59 PM CDT Hospital Encounter [facility] [address] [place], [place] [address] Marcello Morales DO [address] [place], [place] [address] Discharge Disposition: Home or Self Care (Routine Discharge) Social History Tobacco Use Types Packs/Day Years Used Date Smoking Tobacco: Never Assessed Comments No Sex and Gender Information Value Date Recorded Sex Assigned at Not on file 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 No / Unsure 01/13/2022 11:03 AM CDT documented as of this encounter Plan of Treatment Not on file documented as of this encounter Visit Diagnoses Not on filedocumented in this encounter Care Teams Ophthalmology Technician Relationship Specialty Start Date End Date Monico Reynoso MD [address] [place] [address] PCP - General FAMILY PRACTICE 08/26/21 10/03/22 documented as of this encounter
--- OUTSIDE RECORDS SUMMARY | 2024-08-18 10:08 | XMS_ITS | Encounter Summary ---
Author Organization [facility] - [facility] Address [address] [facility] 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 No / Unsure 01/30/2022 8:38 AM CDT documented as of this encounter Plan of Treatment Not on file documented as of this encounter Visit Diagnoses Not on filedocumented in this encounter Care Teams Cassandra Developer Relationship Specialty Start Date End Date Monico Reynoso MD [address] [place] [address] PCP - General FAMILY PRACTICE 08/26/21 10/03/22 documented as of this encounter
--- OUTSIDE RECORDS SUMMARY | 2024-08-18 10:08 | XMS_ITS | Encounter Summary ---
Author Organization [facility] Address [address] [place] [address] [place] [address] Care Team Providers Care Therapeutic Riding Instructor Name Role Phone Monico Reynoso MD Primary Care Provider [phone] Reason for Visit * Consultation/Treatment (Routine) - Closed Specialty Diagnoses / Procedures Referred By Cecy gage Referred To Contact FAMILY PRACTICE / [facility] Wound Care Diagnoses Skin graft (allograft) (autograft) failure Failed Flap Procedures HYPERBARIC OXYGEN PROCEDURE [facility] Wound Care Mobile [address] [place] [address] Phone: tel: Jeff Zambrano DO Phone: tel: fax: Referral ID Status Reason Start Date Expiration Date V isits Requested Visits Authorized [id number] Closed Hyperbaric Oxygen - HBO 12/21/2021 03/21/2022 24 24 Encounter Details Date Type Department Care Team (Latest Contact Info) Description 01/09/2022 8:08 AM CDT - 01/09/2022 11:59 PM CDT Hospital Encounter [facility] W[facility] Care Center [address], [place] [id number] Jeff Zambrano DO [address], [place] [id number] Marcello Morales DO [address] [place] [address] Discharge Disposition: Home or Self Care (Routine Discharge) Social History Tobacco Use Types Packs/Day Years Used Date Smoking Tobacco: Never Assessed Comments No Sex and Gender Information Value Date Recorded Sex Assigned at Not on file Legal 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 No / Unsure 01/09/2022 8:08 AM CDT documented as of this encounter Plan of Treatment Not on file documented as of this encounter Visit Diagnoses Not on filedocumented in this encounter Care Teams Therapeutic Riding Instructor Relationship Specialty Start Date End Date Monico Reynoso MD [address] [place] [address] PCP - General FAMILY PRACTICE 08/26/21 10/03/22 documented as of this encounter
--- OUTSIDE RECORDS SUMMARY | 2024-08-18 10:08 | XMS_ITS | Encounter Summary ---
Author Organization [facility] Address [address] 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 No / Unsure 01/26/2022 8:33 AM CDT documented as of this encounter Plan of Treatment Not on file documented as of this encounter Visit Diagnoses Not on filedocumented in this encounter Care Teams Unit Clerk Relationship Specialty Start Date End Date Monico Reynoso MD [address] [place] [address] PCP - General FAMILY PRACTICE 08/26/21 10/03/22 documented as of this encounter
--- OUTSIDE RECORDS SUMMARY | 2024-08-18 10:08 | XMS_ITS | Encounter Summary ---
Author Organization [facility] Address [address] [place] [address] [place] [address] Care Team Providers Care Composite Technician Name Role Phone Monico Reynoso MD Primary Care Provider [phone] Reason for Visit * Consultation/Treatment (Routine) - Closed Specialty Diagnoses / Procedures Referred By Cecy gage Referred To Contact FAMILY PRACTICE / [facility] Wound Care Diagnoses Skin graft (allograft) (autograft) failure Failed Flap Procedures HYPERBARIC OXYGEN PROCEDURE [facility] Center [address] [place] [address] Phone: tel: Jeff Zambrano DO Phone: tel: fax: Referral ID Status Reason Start Date Expiration Date V isits Requested Visits Authorized [id number] Closed Hyperbaric Oxygen - HBO 12/21/2021 03/21/2022 24 24 Encounter Details Date Type Department Care Team (Latest Contact Info) Description 01/24/2022 8:00 AM CDT - 01/24/2022 11:59 PM CDT Hospital Encounter [facility] Wound Care Center [address] [place], [place] [address] Jeff Zambrano DO [address] [place], [place] [id number] Mili Garrett APRN [address] [place], [place] [address] Discharge Disposition: Home or Self Care (Routine Discharge) Social History Tobacco Use Types Packs/Day Years Used Date Smoking Tobacco: Never Assessed Comments No Sex and Gender Information Value Date Recorded Sex Assigned at Not on file Legal Sex Female 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
--- OUTSIDE RECORDS SUMMARY | 2024-08-18 10:08 | XMS_ITS | Encounter Summary ---
Author Organization [facility] - [facility] Address [address] 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 No / Unsure 01/18/2022 2:37 PM CDT documented as of this encounter Plan of Treatment Not on file documented as of this encounter Visit Diagnoses Not on filedocumented in this encounter Care Teams Claim Attorney Relationship Specialty Start Date End Date Monico Reynoso MD [address] [place] [address] PCP - General FAMILY PRACTICE 08/26/21 10/03/22 documented as of this encounter
--- OUTSIDE RECORDS SUMMARY | 2024-08-18 10:08 | XMS_ITS | Encounter Summary ---
Author Organization [facility] - [facility] Address [address] 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 No / Unsure 01/16/2022 8:39 AM CDT documented as of this encounter Plan of Treatment Not on file documented as of this encounter Visit Diagnoses Not on filedocumented in this encounter Care Teams Technical Buyer Relationship Specialty Start Date End Date Monico Reynoso MD [address] [place] [address] PCP - General FAMILY PRACTICE 08/26/21 10/03/22 documented as of this encounter
--- OUTSIDE RECORDS SUMMARY | 2024-08-18 10:08 | XMS_ITS | Encounter Summary ---
Author Organization [facility] - [facility] Address [address] 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 No / Unsure 01/11/2022 2:31 PM CDT documented as of this encounter Plan of Treatment Not on file documented as of this encounter Visit Diagnoses Not on filedocumented in this encounter Care Teams Beer Still Runner Compounder Relationship Specialty Start Date End Date Monico Reynoso MD [address] [place] [address] PCP - General FAMILY PRACTICE 08/26/21 10/03/22 documented as of this encounter
--- OUTSIDE RECORDS SUMMARY | 2024-08-18 10:08 | XMS_ITS | Encounter Summary ---
Author Organization [facility] - [facility] Address [address] 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 No / Unsure 01/06/2022 8:24 AM CDT documented as of this encounter Plan of Treatment Not on file documented as of this encounter Visit Diagnoses Not on filedocumented in this encounter Care Teams Graphics Manager Relationship Specialty Start Date End Date Monico Reynoso MD [address] [place] [address] PCP - General FAMILY PRACTICE 08/26/21 10/03/22 documented as of this encounter
--- OUTSIDE RECORDS SUMMARY | 2024-08-18 10:08 | XMS_ITS | Encounter Summary ---
Author Organization [facility] Address [facility] [place] [address] [place] [address] Care Team Providers Care Lens Cleaner Name Role Phone Monico Reynoso MD Primary Care Provider [phone] Reason for Visit * Consultation/Treatment (Routine) - Closed Specialty Diagnoses / Procedures Referred By Cecy gage Referred To Contact FAMILY PRACTICE / [facility] Wound Care Diagnoses Skin graft (allograft) (autograft) failure Failed Flap Procedures HYPERBARIC OXYGEN PROCEDURE [facility] W[facility] Care [place] [address] [place] [address] Phone: tel: Jeff Zambrano DO Phone: tel: fax: Referral ID Status Reason Start Date Expiration Date V isits Requested Visits Authorized [id number] Closed Hyperbaric Oxygen - HBO 12/21/2021 03/21/2022 24 24 Encounter Details Date Type Department Care Team (Latest Contact Info) Description 01/18/2022 7:56 AM CDT - 01/18/2022 11:59 PM CDT Hospital Encounter [facility] W[facility] Care Center [address] [place], [place] [address] Jeff Zambrano DO [address] [place], [place] [id number] Discharge Disposition: Home or Self Care (Routine Discharge) Social History Tobacco Use Types Packs/Day Years Used Date Smoking Tobacco: Never Assessed Comments No Sex and Gender Information Value Date Recorded Sex Assigned at Not on file Legal Sex Female 11:19 PM ELEMENT BURNER Gender Identity Not on file Sexual Orientation [...] on filedocumented in this encounter Care Teams Lens Cleaner Relationship Specialty Start Date End Date Monico Reynoso MD [address] [place] [address] PCP - General FAMILY PRACTICE 08/26/21 10/03/22 documented as of this encounter
--- OUTSIDE RECORDS SUMMARY | 2024-08-18 10:08 | XMS_ITS | Encounter Summary ---
Author Organization [facility] Address [address] [place] [address] [place] [address] Care Team Providers Care Infrastructure Developer Name Role Phone Monico Reynoso MD Primary Care Provider [phone] Reason for Visit * Consultation/Treatment (Routine) - Closed Specialty Diagnoses / Procedures Referred By Cecy gage Referred To Contact [facility] Wound Care Diagnoses Skin graft (allograft) (autograft) failure Procedures HYPERBARIC OXYGEN PROCEDURE Mili Garrett, JACK [address] [place] [address] Phone: tel: fax: [facility] [address] [place] [address] Phone: tel: Referral ID Status Reason Start Date Expiration Date Visits Re quested Visits Authorized [id number] Closed 01/25/2022 04/25/2022 16 16 Encounter Details Date Type Department Care Team (Latest Contact Info) Description 01/26/2022 8:00 AM CDT - 01/26/2022 11:59 PM CDT Hospital Encounter [facility] [address] [place], [place] [address] Jeff Talbert MD [address] [place] [address] Discharge Disposition: Home or Self Care (Routine Discharge) Social History Tobacco Use Types Packs/Day Years Used Date Smoking Tobacco: Never Assessed Comments No Sex and Gender Information Value Date Recorded Sex Assigned at Not on file Legal 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
--- OUTSIDE RECORDS SUMMARY | 2024-08-18 10:08 | XMS_ITS | Encounter Summary ---
Author Organization [facility] Address [facility] [place] [address] [place] [address] Care Team Providers Care Main Entree Cook And Cashier Name Role Phone Monico Reynoso MD Primary Care Provider [phone] Reason for Visit * Consultation/Treatment (Routine) - Closed Specialty Diagnoses / Procedures Referred By Cecy gage Referred To Contact FAMILY PRACTICE / [facility] Wound Care Diagnoses Skin graft (allograft) (autograft) failure Failed Flap Procedures HYPERBARIC OXYGEN PROCEDURE [facility] W[facility] [place] [address] [place] [address] Phone: tel: Jeff Zmabrano DO Phone: tel: fax: Referral ID Status Reason Start Date Expiration Date V isits Requested Visits Authorized [id number] Closed Hyperbaric Oxygen - HBO 12/21/2021 03/21/2022 24 24 Encounter Details Date Type Department Care Team (Latest Contact Info) Description 01/12/2022 8:55 AM CDT - 01/12/2022 11:59 PM CDT Hospital Encounter [facility] W[facility] [place] [address] [place], [place] [address] Jeff Talbert MD [address] [place] [address] Discharge Disposition: Home or Self Care (Routine Discharge) Social History Tobacco Use Types Packs/Day Years Used Date Smoking Tobacco: Never Assessed Comments No Sex and Gender Information Value Date Recorded Sex Assigned at Not on file Legal Sex Female 11:19 PM 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 No / Unsure 01/12/2022 10:45 AM CDT documented as of this encounter Plan of Treatment Not on file documented as of this encounter Visit Diagnoses Not on filedocumented in this encounter Care Teams Main Entree Cook And Cashier Relationship Specialty Start Date End Date Monico Reynoso MD [address] [place] [address] PCP - General FAMILY PRACTICE 08/26/21 10/03/22 documented as of this encounter
--- OUTSIDE RECORDS SUMMARY | 2024-08-18 10:08 | XMS_ITS | Encounter Summary ---
Author Organization [facility] Address [address] [place] [address] [place] [address] Care Team Providers Care Door Manager Name Role Phone Monico Reynoso MD Primary Care Provider [phone] Reason for Visit * Consultation/Treatment (Routine) - Closed Specialty Diagnoses / Procedures Referred By Cecy gage Referred To Contact [facility] Wound Care Diagnoses Skin graft (allograft) (autograft) failure Procedures HYPERBARIC OXYGEN PROCEDURE Mili Garrett, JACK [address] [place] [address] Phone: tel: fax: [facility] [address] [place] [address] Phone: tel: Referral ID Status Reason Start Date Expiration Date Visits Re quested Visits Authorized [id number] Closed 01/25/2022 04/25/2022 16 16 Encounter Details Date Type Department Care Team (Late st Contact Info) Description 01/27/2022 8:00 AM CDT - 01/27/2022 11:59 PM CDT Hospital Encounter [facility] [address] [place] [address] Cain Bill, ACNP-BC [address] [address] Discharge Disposition: Home or Self Care (Routine Discharge) Social History Tobacco Use Types Packs/Day Years Used Date Smoking Tobacco: Never Assessed Comments No Sex and Gender Information Value Date Recorded Sex Assigned at Not on file Legal Sex Female 11:19 PM 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 No / Unsure 01/27/2022 8:49 AM CDT documented as of this encounter Plan of Treatment Not on file documented as of this encounter Visit Diagnoses Not on filedocumented in this encounter Care Teams Door Manager Relationship Specialty Start Date End Date Monico Reynoso MD [address] [place] [address] PCP - General FAMILY PRACTICE 08/26/21 10/03/22 documented as of this encounter
--- OUTSIDE RECORDS SUMMARY | 2024-08-18 10:08 | XMS_ITS | Encounter Summary ---
Author Organization [facility] Address [address] 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 No / Unsure 01/17/2022 9:10 AM CDT documented as of this encounter Plan of Treatment Not on file documented as of this encounter Visit Diagnoses Not on filedocumented in this encounter Care Teams Fans Clerk Relationship Specialty Start Date End Date Monico Reynoso MD [address] [place] [address] PCP - General FAMILY PRACTICE 08/26/21 10/03/22 documented as of this encounter
--- OUTSIDE RECORDS SUMMARY | 2024-08-18 10:08 | XMS_ITS | Encounter Summary ---
Author Organization [facility] - [facility] Address [address] [place] [address] [place] [address] Care Team Providers Care Stamp Maker Name Role Phone Monico Reynoso MD Primary Care Provider [phone] Encounter Details Date Type Department Care Team (Latest Contact Info) Description 01/09/2022 Travel Social History Tobacco Use Types Packs/Day Years Used Date Smoking Tobacco: Never Assessed Comments No Sex and Gender Information Value Date Recorded Sex Assigned at Not on file Legal Sex Female 11:19 PM STUDIO ASSISTANT Gender Identity Not on file Sexual [...] on filedocumented in this encounter Care Teams Stamp Maker Relationship Specialty Start Date End Date Monico Reynoso MD [address] [place] [address] PCP - General FAMILY PRACTICE 08/26/21 10/03/22 documented as of this encounter
--- OUTSIDE RECORDS SUMMARY | 2024-08-18 10:08 | XMS_ITS | Encounter Summary ---
Author Organization [facility] - [facility] Address [address] [place] [address] [place] [address] Care Team Providers Care Sign Painter Apprentice Name Role Phone Monico Reynoso MD Primary Care Provider [phone] Encounter Details Date Type Department Care Team (Latest Contact Info) Description 01/27/2022 Travel Social History Tobacco Use Types Packs/Day Years Used Date Smoking Tobacco: Never Assessed Comments No Sex and Gender Information Value Date Recorded Sex Assigned at Not on file Legal Sex Female 11:19 PM PROPERTY INSURANCE AGENT Gender Identity Not on file Sexual Orientation [...] on filedocumented in this encounter Care Teams Sign Painter Apprentice Relationship Specialty Start Date End Date Monico Reynoso MD [address] [place] [address] PCP - General FAMILY PRACTICE 08/26/21 10/03/22 documented as of this encounter
--- OUTSIDE RECORDS SUMMARY | 2024-08-18 10:08 | XMS_ITS | Encounter Summary ---
Author Organization [facility] - [facility] Address [address] 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
--- OUTSIDE RECORDS SUMMARY | 2024-08-18 10:08 | XMS_ITS | Encounter Summary ---
Author Organization [facility] - [facility] Address [address] 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 No / Unsure 01/20/2022 8:04 AM CDT documented as of this encounter Plan of Treatment Not on file documented as of this encounter Visit Diagnoses Not on filedocumented in this encounter Care Teams Community Service Officer Relationship Specialty Start Date End Date Monico Reynoso MD [address] [place] [address] PCP - General FAMILY PRACTICE 08/26/21 10/03/22 documented as of this encounter
--- OUTSIDE RECORDS SUMMARY | 2024-08-18 10:08 | XMS_ITS | Encounter Summary ---
Author Organization [facility] Address [address] [facility] [place] [address] [place] [address] Care Team Providers Care Quartz Cutter Name Role Phone Monico Reynoso MD Primary Care Provider [phone] Encounter Details Date Type Department Care Team (Late st Contact Info) Description 01/25/2022 [facility] [address] 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
--- OUTSIDE RECORDS SUMMARY | 2024-08-18 10:08 | XMS_ITS | Encounter Summary ---
Author Organization [facility] Address [facility] [facility] [place] [address] [place] [address] Care Team Providers Care Hopper Filler Name Role Phone Monico Reynoso MD Primary Care Provider [phone] Reason for Visit * Consultation/Treatment (Routine) - Closed Specialty Diagnoses / Procedures Referred By Cecy gage Referred To Contact FAMILY PRACTICE / [facility] Wound Care Diagnoses Skin graft (allograft) (autograft) failure Failed Flap Procedures HYPERBARIC OXYGEN PROCEDURE [facility] [place] [address] [place] [address] Phone: tel: Jeff Zambrano DO Phone: tel: fax: Referral ID Status Reason Start Date Expiration Date V isits Requested Visits Authorized [id number] Closed Hyperbaric Oxygen - HBO 12/21/2021 03/21/2022 24 24 Encounter Details Date Type Department Care Team (Latest Contact Info) Description 01/11/2022 8:31 AM CDT - 01/11/2022 11:59 PM CDT Hospital Encounter [facility] [address] [place], [place] [address] Jeff Zambrano DO [address] [place], [place] [id number] Discharge Disposition: Home or Self Care (Routine Discharge) Social History Tobacco Use Types Packs/Day Years Used Date Smoking Tobacco: Never Assessed Comments No Sex and Gender Information Value Date Recorded Sex Assigned at Not on file 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
--- OUTSIDE RECORDS SUMMARY | 2024-08-18 10:08 | XMS_ITS | Encounter Summary ---
Author Organization [facility] Address [address] [facility] [place] [address] [place] [address] Care Team Providers Care Sports Book Board Attendant Name Role Phone Monico Reynoso MD Primary Care Provider [phone] Reason for Visit * Consultation/Treatment (Routine) - Closed Specialty Diagnoses / Procedures Referred By Cecy gage Referred To Contact [facility] Wound Care Diagnoses Skin graft (allograft) (autograft) failure Procedures HYPERBARIC OXYGEN PROCEDURE Mili Garrett, BOOK BINDER [address] [place] [address] Phone: tel: fax: [facility] [address] [place] [address] Phone: tel: Referral ID Status Reason Start Date Expiration Date Visits Re quested Visits Authorized [id number] Closed 01/25/2022 04/25/2022 16 16 Encounter Details Date Type Department Care Team (Latest Contact Info) Description 01/25/2022 8:00 AM CDT - 01/25/2022 11:59 PM CDT Hospital Encounter [facility] [address] [place] [address] Mili Garrett, BOOK BINDER [address] [place] [address] Discharge Disposition: Home or Self Care (Routine Discharge) Social History Tobacco Use Types Packs/Day Years Used Date Smoking Tobacco: Never Assessed Comments No Sex and Gender Information Value Date Recorded Sex Assigned at Not on file Legal Sex Female 11:19 PM 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
--- OUTSIDE RECORDS SUMMARY | 2024-08-18 10:08 | XMS_ITS | Encounter Summary ---
Author Organization [facility] Address [address] [place] [address] [place] [address] Care Team Providers Care Manager Heart Name Role Phone Monico Reynoso MD Primary Care Provider [phone] Encounter Details Date Type Department Care Team (Latest Contact Info) Description 01/12/2022 Travel Social History Tobacco Use Types Packs/Day Years Used Date Smoking Tobacco: Never Assessed Comments No Sex and Gender Information Value Date Recorded Sex Assigned at Not on file Legal Sex Female 11:19 PM DOCENT COORDINATOR Gender Identity Not on file Sexual Orientation [...] filedocumented in this encounter Care Teams Manager Heart Relationship Specialty Start Date End Date Monico Reynoso MD [address] [place] [address] PCP - General FAMILY PRACTICE 08/26/21 10/03/22 documented as of this encounter
--- OUTSIDE RECORDS SUMMARY | 2024-08-18 10:08 | XMS_ITS | Encounter Summary ---
Author Organization [facility] Address [address] [place] [address] [place] [address] Care Team Providers Care Child And Family Services Worker Name Role Phone Monico Reynoso MD Primary Care Provider [phone] Reason for Visit * Consultation/Treatment (Routine) - Closed Specialty Diagnoses / Procedures Referred By Cecy gage Referred To Contact [facility] Wound Care Diagnoses Skin graft (allograft) (autograft) failure Procedures HYPERBARIC OXYGEN PROCEDURE Mili Garrett, LABOR ARBITRATOR [address] [place] [address] Phone: tel: fax: [facility] [address] [place] [address] Phone: tel: Referral ID Status Reason Start Date Expiration Date Visits Re quested Visits Authorized [id number] Closed 01/25/2022 04/25/2022 16 16 Encounter Details Date Type Department Care Team (Latest Contact Info) Description 01/30/2022 8:00 AM CDT - 01/30/2022 11:59 PM T Hospital Encounter [facility] [address] [place] [address] Mili Garrett, LABOR ARBITRATOR [address] [place], [place] [address] Jeff Zambrano DO [address] [place] [address] Discharge Disposition: Home or Self Care (Routine Discharge) Social History Tobacco Use Types Packs/Day Years Used Date Smoking Tobacco: Never Assessed Comments No Sex and Gender Information Value Date Recorded Sex Assigned at Not on file Legal Sex Female 11:19 PM RAIL FILLER Gender Identity Not on file Sexual Orientation [...] on filedocumented in this encounter Care Teams Child And Family Services Worker Relationship Specialty Start Date End Date Monico Reynoso MD [address] [place] [address] PCP - General FAMILY PRACTICE 08/26/21 10/03/22 documented as of this encounter
--- OUTSIDE RECORDS SUMMARY | 2024-08-18 10:08 | XMS_ITS | Encounter Summary ---
Author Organization [facility] Address [address] [facility] [place] [address] [place] [address] Care Team Providers Care Poultry Hatchery Supervisor Name Role Phone Monico Reynoso MD Primary Care Provider [phone] Reason for Visit * Consultation/Treatment (Routine) - Closed Specialty Diagnoses / Procedures Referred By Cecy gage Referred To Contact FAMILY PRACTICE / [facility] Wound Care Diagnoses Skin graft (allograft) (autograft) failure Failed Flap Procedures HYPERBARIC OXYGEN PROCEDURE [facility] [place] [address] [place] [address] Phone: tel: Jeff Zambrano DO Phone: tel: fax: Referral ID Status Reason Start Date Expiration Date V isits Requested Visits Authorized [id number] Closed Hyperbaric Oxygen - HBO 12/21/2021 03/21/2022 24 24 Encounter Details Date Type Department Care Team (Latest Contact Info) Description 01/17/2022 9:10 AM CDT - 01/17/2022 11:59 PM CDT Hospital Encounter [facility] [address] [place], [place] [address] Jeff Zambrano DO [address] [place] [address] Dick Abraham MD [address] [place] [address] Discharge Disposition: Home or Self Care (Routine Discharge) Social History Tobacco Use Types Packs/Day Years Used Date Smoking Tobacco: Never Assessed Comments No Sex and Gender Information Value Date Recorded Sex Assigned at Not on file Legal Sex Female 11:19 PM 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
--- OUTSIDE RECORDS SUMMARY | 2024-08-18 10:08 | XMS_ITS | Encounter Summary ---
Author Organization [facility] Address [address] [facility] [address] [place] [address] Care Team Providers Care Principal Biostatistician Name Role Phone Monico Reynoso MD Primary Care Provider [phone] Reason for Visit * Consultation/Treatment (Routine) - Closed Specialty Diagnoses / Procedures Referred By Cecy gage Referred To Contact FAMILY PRACTICE / [facility] Wound Care Diagnoses Skin graft (allograft) (autograft) failure Failed Flap Procedures HYPERBARIC OXYGEN PROCEDURE [facility] [place] [address] [place] [address] Phone: tel: Jeff Zambrano DO Phone: tel: fax: Referral ID Status Reason Start Date Expiration Date V isits Requested Visits Authorized [id number] Closed Hyperbaric Oxygen - HBO 12/21/2021 03/21/2022 24 24 Encounter Details Date Type Department Care Team (Late st Contact Info) Description 01/19/2022 8:00 AM CDT - 01/19/2022 11:59 PM CDT Hospital Encounter 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
--- OUTSIDE RECORDS SUMMARY | 2024-08-18 10:08 | XMS_ITS | Encounter Summary ---
Author Organization [facility] Address [facility] [facility] [place] [address] [place] [address] Care Team Providers Care Web Content & Social Media Manager Name Role Phone Monico Reynoso MD Primary Care Provider [phone] Reason for Visit * Consultation/Treatment (Routine) - Closed Specialty Diagnoses / Procedures Referred By Cecy gage Referred To Contact FAMILY PRACTICE / [facility] Wound Care Diagnoses Skin graft (allograft) (autograft) failure Failed Flap Procedures HYPERBARIC OXYGEN PROCEDURE [facility] [place] [address] [place] [address] Phone: tel: Jeff Zambrano DO Phone: tel: fax: Referral ID Status Reason Start Date Expiration Date V isits Requested Visits Authorized [id number] Closed Hyperbaric Oxygen - HBO 12/21/2021 03/21/2022 24 24 Encounter Details Date Type Department Care Team (Latest Contact Info) Description 01/20/2022 8:00 AM CDT - 01/20/2022 11:59 PM CDT Hospital Encounter [facility] [address] [place], [place] [id number] Jeff Zambrano DO [address] [place], [place] [id number] Marcello Morales DO [address] [place] [address] Discharge Disposition: Home or Self Care (Routine Discharge) Social History Tobacco Use Types Packs/Day Years Used Date Smoking Tobacco: Never Assessed Comments No Sex and Gender Information Value Date Recorded Sex Assigned at Not on file 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
--- OUTSIDE RECORDS SUMMARY | 2024-08-18 10:08 | XMS_ITS | Encounter Summary ---
Author Organization [facility] Address [address] [facility] [place] [address] [place] [address] Care Team Providers Care Machine Stitcher Name Role Phone Monico Reynoso MD Primary Care Provider [phone] Reason for Visit * Consultation/Treatment (Routine) - Closed Specialty Diagnoses / Procedures Referred By Cecy gage Referred To Contact FAMILY PRACTICE / [facility] Wound Care Diagnoses Skin graft (allograft) (autograft) failure Failed Flap Procedures HYPERBARIC OXYGEN PROCEDURE [facility] [place] [address] [place] [address] Phone: tel: Jeff Zambrano DO Phone: tel: fax: Referral ID Status Reason Start Date Expiration Date V isits Requested Visits Authorized [id number] Closed Hyperbaric Oxygen - HBO 12/21/2021 03/21/2022 24 24 Encounter Details Date Type Department Care Team (Latest Contact Info) Description 01/05/2022 8:04 AM CDT - 01/05/2022 11:59 PM CDT Hospital Encounter [facility] [address] [place], [place] [id number] Jeff Zambrano DO [address] [place], [place] [id number] Marcello Morales DO [address] [place] [address] Jeff Talbert MD [address] [facility] [address] [place], [place] [address] Discharge Disposition: Home or Self Care (Routine Discharge) Social History Tobacco Use Types Packs/Day Years Used Date Smoking Tobacco: Never Assessed Comments No Sex and Gender Information Value Date Recorded Sex Assigned at Not on file 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
--- OUTSIDE RECORDS SUMMARY | 2024-08-18 10:08 | XMS_ITS | Encounter Summary ---
Author Organization [facility] Address [address] [facility] 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
--- OUTSIDE RECORDS SUMMARY | 2024-08-18 10:08 | XMS_ITS | Encounter Summary ---
Author Organization [facility] Address [address] [facility] [place] [address] [place] [address] Care Team Providers Care Individual Small Group Instructor Name Role Phone Monico Reynoso MD Primary Care Provider [phone] Reason for Visit * Consultation/Treatment (Routine) - Closed Specialty Diagnoses / Procedures Referred By Cecy gage Referred To Contact [facility] Wound Care Diagnoses Skin graft (allograft) (autograft) failure Procedures HYPERBARIC OXYGEN PROCEDURE Mili Garrett, JACK [address] [place] [address] Phone: tel: fax: [facility] [address] [place] [address] Phone: tel: Referral ID Status Reason Start Date Expiration Date Visits Re quested Visits Authorized [id number] Closed 01/25/2022 04/25/2022 16 16 Encounter Details Date Type Department Care Team (Latest Contact Info) Description 01/31/2022 8:00 AM CDT - 01/31/2022 11:59 PM CDT Hospital Encounter [facility] [place] [address] [place] [address] Dick Abraham MD [address] [place] [address] Discharge Disposition: Home or Self Care (Routine Discharge) Social History Tobacco Use Types Packs/Day Years Used Date Smoking Tobacco: Never Assessed Comments No Sex and Gender Information Value Date Recorded Sex Assigned at Not on file 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
--- OUTSIDE RECORDS SUMMARY | 2024-08-18 10:08 | XMS_ITS | Encounter Summary ---
Author Organization [facility] Address [address] [place] [address] [place] [address] Care Team Providers Care Dye Jig Operator Name Role Phone Monico Reynoso MD Primary Care Provider [phone] Reason for Visit * Consultation/Treatment (Routine) - Closed Specialty Diagnoses / Procedures Referred By Cecy gage Referred To Contact FAMILY PRACTICE / [facility] Wound Care Diagnoses Skin graft (allograft) (autograft) failure Failed Flap Procedures HYPERBARIC OXYGEN PROCEDURE [facility] [place] [address] [place] [address] Phone: tel: Jeff Zambrano DO Phone: tel: fax: Referral ID Status Reason Start Date Expiration Date V isits Requested Visits Authorized [id number] Closed Hyperbaric Oxygen - HBO 12/21/2021 03/21/2022 24 Encounter Details Date Type Department Care Team (Latest Contact Info) Description 01/10/2022 8:34 AM CDT - 01/10/2022 11:59 PM CDT Hospital Encounter [facility] [address] [place], [place] [address] Jeff Zambrano DO [address] [place], [place] [id number] Marcello Morales DO [address] [place], [place] [address] Dick Abraham MD [address] [place] [address] Discharge Disposition: Home or Self Care (Routine Discharge) Social History Tobacco Use Types Packs/Day Years Used Date Smoking Tobacco: Never Assessed Comments No Sex and Gender Information Value Date Recorded Sex Assigned at Not on file 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 No / Unsure 01/10/2022 8:33 AM CDT documented as of this encounter Plan of Treatment Not on file documented as of this encounter Visit Diagnoses Not on filedocumented in this encounter Care Teams Dye Jig Operator Relationship Specialty Start Date End Date Monico Reynoso MD [address] [place] [address] PCP - General FAMILY PRACTICE 08/26/21 10/03/22 documented as of this encounter
--- OUTSIDE RECORDS SUMMARY | 2024-08-18 10:08 | XMS_ITS | Encounter Summary ---
Author Organization [facility] Address [address] 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
--- OUTSIDE RECORDS SUMMARY | 2024-08-18 10:08 | XMS_ITS | Encounter Summary ---
Author Organization [facility] Address [address] [facility] [place] [address] [place] [address] Care Team Providers Care Sales Producer Name Role Phone Monico Reynoso MD Primary Care Provider [phone] Reason for Visit * Consultation/Treatment (Routine) - Closed Specialty Diagnoses / Procedures Referred By Cecy gage Referred To Contact FAMILY PRACTICE / [facility] Wound Care Diagnoses Skin graft (allograft) (autograft) failure Failed Flap Procedures HYPERBARIC OXYGEN PROCEDURE [facility] [place] [address] [place] [address] Phone: tel: Jeff Zambrano DO Phone: tel: fax: Referral ID Status Reason Start Date Expiration Date V isits Requested Visits Authorized [id number] Closed Hyperbaric Oxygen - HBO 12/21/2021 03/21/2022 24 24 Encounter Details Date Type Department Care Team (Late st Contact Info) Description 01/06/2022 8:25 AM CDT - 01/06/2022 11:59 PM CDT Hospital Encounter [facility] [place] [address] [place], [place] [address] Cain Bill, ACNP-BC [address] [address] [address] Discharge Disposition: Home or Self Care (Routine Discharge) Social History Tobacco Use Types Packs/Day Years Used Date Smoking Tobacco: Never Assessed Comments No Sex and Gender Information Value Date Recorded Sex Assigned at Not on file 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
--- OUTSIDE RECORDS SUMMARY | 2024-08-18 10:08 | XMS_ITS | Encounter Summary ---
Author Organization [facility] Address [address] [facility] 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
--- OUTSIDE RECORDS SUMMARY | 2024-08-18 10:09 | XMS_ITS | Encounter Summary ---
Author Organization [facility] Address [address] [facility] [place] [address] [place] [address] Care Team Providers Care Finished Goods Planner Name Role Phone Unavailable Primary Care Provider Unavailabl e Encounter Details Date Type Department Care Team (Latest Contact Info) Description 07/24/2013 Abstract [facility] Kailey العراقي MD [address] [place] [address] Social History Tobacco Use Types Packs/Day Years Used Date Smoking Tobacco: Never Assessed Comments Unknown Sex and Gender Information Value Date Recorded Sex Assigned at Not on file Legal Sex Female 11:19 PM CONTRACTS MANAGER Gender Identity Not on file Sexual Orientation Not on file documented as of this encounter Plan of Treatment Not on file documented as of this encounter Procedures Procedure Name Priority Date/Time Associated Diagnosis Comments MG DIAGNOSTIC RT DIGI Routine 07/24/2013 2:42 PM CONTRACTS MANAGER documented in this encounter Results * MG DIAGNOSTIC RT DIGI (07/24/2013 2:42 PM CONTRACTS MANAGER) Anatomical Region Laterality Modality Breast Right Mammography 07/24/2013 2:42 PM CONTRACTS MANAGER 07/24/2013 2:42 PM CONTRACTS MANAGER Narrative 07/24/2013 2:51 PM CONTRACTS MANAGER [facility] ?? [place], [place] ? PATIENT NAME: BETHANIE ELLIS ANN ?? MED REC #: ??[id number] ADMIT DATE: ?? DISCH DATE: ? PATIENT TYPE: ??REG CLI ORDER #: ??[id number] ?? PT LOCATION: ??[facility] AGE/SEX: ??42F DATE OF : ??1970 ?? ATTENDING PHYS: ??KAILEY العراقي MD ? EXAM DATE: 07/24/13 ? EXAM: MG DIAGNOSTIC MAMMO DIGITAL RT ? RIGHT BREAST MAMMOGRAM ? INDICATIONS:42-year-old asymptomatic female. History of benign ?? excisional biopsy. 6 month followup. ? COMPARISON: 12/16/2012 and 11/24/2011 ? TECHNIQUE: Digital CC and MLO views of RIGHT breast. ? FINDINGS: A scattered fibroglandular parenchymal pattern is present. ?? Postbiopsy architectural distortion noted in the RIGHT breast. NO new ?? lesion or cluster of suspicious microcalcification noted. ? NO areas highlighted by CAD. ? IMPRESSION: BI-RAD ASSESSMENT CATEGORY 2. ASSESSMENT COMPLETE. ? BENIGN FINDINGS ARE PRESENT. ? RECOMMENDATION: Return to routine bilateral screening mammogram in November ?? 2013. ? CPT: 82035. Mammography; unilateral. ? Electronically Signed By: ??Luisito Oliveira MD 07/24/2013 2:47 PM Procedure Note Jacob Delgado MD - 06/12/2018 [place], [place] PATIENT NAME: BETHANIE ELLIS [facility] REC #: [id number] ADMIT DATE: DISCH DATE: PATIENT TYPE: REG CLI PT LOCATION: [facility] AGE/SEX: 42F DATE OF : 1970 ATTENDING PHYS: KAILEY العراقي MD EXAM DATE: 07/24/13 EXAM: MG DIAGNOSTIC MAMMO DIGITAL RT RIGHT BREAST MAMMOGRAM INDICATIONS:42-year-old asymptomatic female. History of benign excisional biopsy. 6 month followup. COMPARISON: 12/16/2012 and 11/24/2011 TECHNIQUE: Digital CC and MLO views of RIGHT breast. FINDINGS: A scattered fibroglandular parenchymal pattern is present. Postbiopsy architectural distortion noted in the RIGHT breast. NO new lesion or cluster of suspicious microcalcification noted. NO areas highlighted by CAD. IMPRESSION: BI-RAD ASSESSMENT CATEGORY 2. ASSESSMENT COMPLETE. BENIGN FINDINGS ARE PRESENT. RECOMMENDATION: Return to routine bilateral screening mammogram in November 2013. CPT: 92182. Mammography; unilateral. Electronically Signed By: Luisito Oliveira MD 07/24/2013 2:47 PM us Kailey العراقي MD MAMMO Final Result documented in this encounter Visit Diagnoses Not on filedocumented in this encounter
--- OUTSIDE RECORDS SUMMARY | 2024-08-18 10:09 | XMS_ITS | Encounter Summary ---
Author Organization [facility] - [facility] Address [address] [place] [address]. [place] [address] [place] [address] Care Team Providers Care Booster Plant Operator Name Role Phone Monico Reynoso MD Primary Care Provider [phone] Encounter Details Date Type Department Care Team (Latest Contact Info) Description 12/16/2021 10:06 AM CDT - 12/16/2021 11:59 PM CDT Hospital Encounter [facility] Cardiology [address] [place] [address] Marcello Morales, DO [address] [place], [place] [address] Discharge Disposition: Home or Self Care (Routine Discharge) Social History Tobacco Use Types Packs/Day Years Used Date Smoking Tobacco: Never Assessed Comments No Sex and Gender Information Value Date Recorded Sex Assigned at Not on file 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 No / Unsure 12/16/2021 7:51 AM CDT documented as of this encounter Plan of Treatment Not on file documented as of this encounter Procedures Procedure Name Priority Date/Time Associated Diagnosis Comments ECG 12-LEAD Routine 12/16/2021 10:15 AM CDT Cough, unspecified documented in this encounter Results * ECG 12 lead (12/16/2021 10:15 AM CDT) 12/16/2021 10:1 5 AM CDT Narrative [facility] - 12/16/2021 10:52 AM CDT ? [facility] ? Test Date: ?2021-12-16 Pat Name: ? BETHANIE ELLIS ?Department: ? Room: ? Gender: ? Female ? Mink Farmer: ?? AT : ?1970 ? Requested By: ?? Order Number: [id number] ? Reading MD: ?? Yoel Jones ? Measurements Intervals ?[place] ? Rate: ? 77 ? P: ?68 MA: ? 147 ?QRS: ?64 QRSD: ? 84 ? T: ?64 QT: ? 361 ? QTc: ?409 ? Interpretive Statements Sinus rhythm Borderline low voltage, extremity leads No previous ECG available for comparison Procedure Note Yoel Jones MD - 12/16/2021 [facility] Test Date: 2021-12-16 Pat Name: BETHANIE ELLIS Department: Room: Gender: Female Mink Farmer: AT : 1970 Requested By: Order Number: [id number] Reading MD: Yoel Jones Measurements Intervals [place] Rate: 77 P: 68 MA: 147 QRS: 64 QRSD: 84 T: 64 QT: 361 QTc: 409 Interpretive Statements Sinus rhythm Borderline low voltage, extremity leads No previous ECG available for comparison us Marcello Morales DO ECG ORDERABLES Final Resu lt [facility] documented in this encounter Visit Diagnoses Diagnosis Cough, unspecified- Primary documented in this encounter Care Teams Booster Plant Operator Relationship Specialty Start Date End Date Monico Reynoso MD [address] [place] [address] PCP - General FAMILY PRACTICE 08/26/21 2 documented as of this encounter
--- OUTSIDE RECORDS SUMMARY | 2024-08-18 10:09 | XMS_ITS | Encounter Summary ---
Author Organization [facility] Address [address] [facility] 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
--- OUTSIDE RECORDS SUMMARY | 2024-08-18 10:09 | XMS_ITS | Encounter Summary ---
Author Organization [facility] - [facility] Address [address] [facility] 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 No / Unsure 11/01/2021 2:46 PM CDT documented as of this encounter Plan of Treatment Not on file documented as of this encounter Visit Diagnoses Not on filedocumented in this encounter Care Teams Boiler Operator Helper Relationship Specialty Start Date End Date Monico Reynoso MD [address] [place] [address] PCP - General FAMILY PRACTICE 08/26/21 10/03/22 documented as of this encounter
--- OUTSIDE RECORDS SUMMARY | 2024-08-18 10:09 | XMS_ITS | Encounter Summary ---
Author Organization [facility] Address [address] [place] [address]. [place] [address] [place] [address] Care Team Providers Care Director Child Development Center Name Role Phone Monico Reynoso MD Primary Care Provider [phone] Encounter Details Date Type Department Care Team (Late st Contact Info) Description 08/26/2021 - 08/26/2021 11:[address] MAGISTRATE Hospital Encounter [facility] [address] [place] [address] [address] Sully Lyn, SIEBEL DEVELOPER [address] [place] [address] Discharge Disposition: Home or Self Care (Routine Discharge) Social History Tobacco Use Types Packs/Day Years Used Date Smoking Tobacco: Never Assessed Comments No Sex and Gender Information Value Date Recorded Sex Assigned at Not on file Legal Sex Female 11:[address] MAGISTRATE Gender Identity Not on file Sexual Orientation Not on file COVID-19 Exposure Response Date Recorded In the last month, have you been in contact with someone who was confirmed or suspected to have Coronavirus / COVID-19? Yes 08/26/2021 5:[address] MAGISTRATE documented as of this encounter Plan of Treatment Not on file documented as of this encounter Visit Diagnoses Not on filedocumented in this encounter Additional Health Concerns Infection Onset Date Last Indicated Resolved Time COVID-19 Rule Out 08/26/2021 08/26/2021 08/27/2021 2:[address] MAGISTRATE documented as of this encounter Care Teams Director Child Development Center Relationship Specialty Start Date End Date Monico Reynoso MD [address] [place] [address] PCP - General FAMILY PRACTICE 08/26/21 2 documented as of this encounter
--- OUTSIDE RECORDS SUMMARY | 2024-08-18 10:09 | XMS_ITS | Encounter Summary ---
Author Organization [facility] Address [address] [facility] [place] [address] [place] [address] Care Team Providers Care Window And Siding Craftsman Name Role Phone Monico Reynoso MD Primary Care Provider [phone] Reason for Visit * Consultation/Treatment (Routine) - Closed Specialty Diagnoses / Procedures Referred By Cecy gage Referred To Contact FAMILY PRACTICE / [facility] Wound Care Diagnoses Skin graft (allograft) (autograft) failure Failed Flap Procedures HYPERBARIC OXYGEN PROCEDURE [facility] [place] [address] [place] [address] Phone: tel: Jeff Zambrano DO Phone: tel: fax: Referral ID Status Reason Start Date Expiration Date V isits Requested Visits Authorized [id number] Closed Hyperbaric Oxygen - HBO 12/21/2021 03/21/2022 24 24 Encounter Details Date Type Department Care Team (Latest Contact Info) Description 12/28/2021 8:28 AM CDT - 12/28/2021 11:59 PM CDT Hospital Encounter [facility] [address] [place], [place] [id number] Jeff Zambrano DO [address] [place], [place] [address] Marcello Morales DO [address] [place] [address] Discharge Disposition: Home or Self Care (Routine Discharge) Social History Tobacco Use Types Packs/Day Years Used Date Smoking Tobacco: Never Assessed Comments No Sex and Gender Information Value Date Recorded Sex Assigned at Not on file Legal Sex Female 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 No / Unsure 12/27/2021 1:46 PM CDT documented as of this encounter Plan of Treatment Not on file documented as of this encounter Visit Diagnoses Not on filedocumented in this encounter Care Teams Window And Siding Craftsman Relationship Specialty Start Date End Date Monico Reynoso MD [address] [place] [address] PCP - General FAMILY PRACTICE 08/26/21 10/03/22 documented as of this encounter
--- OUTSIDE RECORDS SUMMARY | 2024-08-18 10:09 | XMS_ITS | Encounter Summary ---
Author Organization [facility] - [facility] Address [address] 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 No / Unsure 12/15/2021 4:10 PM CDT documented as of this encounter Plan of Treatment Not on file documented as of this encounter Visit Diagnoses Not on filedocumented in this encounter Care Teams Accounting Bookkeeper Relationship Specialty Start Date End Date Monico Reynoso MD [address] [place] [address] PCP - General FAMILY PRACTICE 08/26/21 10/03/22 documented as of this encounter
--- OUTSIDE RECORDS SUMMARY | 2024-08-18 10:09 | XMS_ITS | Encounter Summary ---
Author Organization [facility] Address [address] 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
--- OUTSIDE RECORDS SUMMARY | 2024-08-18 10:09 | XMS_ITS | Encounter Summary ---
Author Organization [facility] Address [address] [facility] [place] [address] [place] [address] Care Team Providers Care Call Center Supervisor Name Role Phone Monico Reynoso MD Primary Care Provider [phone] Reason for Visit * Consultation/Treatment (Routine) - Closed Specialty Diagnoses / Procedures Referred By Cecy gage Referred To Contact FAMILY PRACTICE / [facility] Wound Care Diagnoses Skin graft (allograft) (autograft) failure Failed Flap Procedures HYPERBARIC OXYGEN PROCEDURE [facility] [place] [address] [place] [address] Phone: tel: Jeff Zambrano DO Phone: tel: fax: Referral ID Status Reason Start Date Expiration Date V isits Requested Visits Authorized [id number] Closed Hyperbaric Oxygen - HBO 12/21/2021 03/21/2022 24 24 Encounter Details Date Type Department Care Team (Latest Contact Info) Description 01/02/2022 8:21 AM CDT - 01/02/2022 11:59 PM CDT Hospital Encounter [facility] [address] [place], [place] [address] Jeff Zambrano DO [address] [place], [place] [id number] Marcello Mroales DO [address] [place] [address] Discharge Disposition: Home or Self Care (Routine Discharge) Social History Tobacco Use Types Packs/Day Years Used Date Smoking Tobacco: Never Assessed Comments No Sex and Gender Information Value Date Recorded Sex Assigned at Not on file Legal Sex Female 11:19 PM HANDLE SEWER Gender Identity Not on file Sexual Orientation Not on file COVID-19 Exposure Response Date Recorded In the last 10 days, have yo u been in contact with someone who was confirmed or suspected to have Coronavirus/COVID-19? No / Unsure 01/02/2022 3:28 PM CDT documented as of this encounter Plan of Treatment Not on file documented as of this encounter Visit Diagnoses Not on filedocumented in this encounter Care Teams Call Center Supervisor Relationship Specialty Start Date End Date Monico Reynoso MD [address] [place] [address] PCP - General FAMILY PRACTICE 08/26/21 10/03/22 documented as of this encounter
--- OUTSIDE RECORDS SUMMARY | 2024-08-18 10:09 | XMS_ITS | Encounter Summary ---
Author Organization [facility] Address [facility] [facility] [place] [address] [place] [address] Care Team Providers Care Director Systems Name Role Phone Monico Reynoso MD Primary Care Provider [phone] Encounter Details Date Type Department Care Team (Latest Contact Info) Description 10/28/2021 8:20 AM TOOL SPECIALIST - 10/28/2021 11:59 PM TOOL SPECIALIST Hospital Encounter [facility] [place] [address] [place], [place] [address] Marcello Morales, [address] [place], [place] [address] Discharge Disposition: Home or Self Care (Routine Discharge) Social History Tobacco Use Types Packs/Day Years Used Date Smoking Tobacco: Never Assessed Comments No Sex and Gender Information Value Date Recorded Sex Assigned at Not on file Legal Sex Female 11:19 PM TOOL SPECIALIST Gender Identity Not on file Sexual Orientation Not on file COVID-19 Exposure Response Date Recorded In the last 10 days, have yo u been in contact with someone who was confirmed or suspected to have Coronavirus/COVID-19? No / Unsure 10/28/2021 7:44 AM TOOL SPECIALIST documented as of this encounter Plan of Treatment Not on file documented as of this encounter Visit Diagnoses Not on filedocumented in this encounter Care Teams Director Systems Relationship Specialty Start Date End Date Monico Reynoso MD [address] [place] [address] PCP - General FAMILY PRACTICE 08/26/21 2 documented as of this encounter
--- OUTSIDE RECORDS SUMMARY | 2024-08-18 10:09 | XMS_ITS | Encounter Summary ---
Author Organization [facility] - [facility] Address [address] [facility] [place] [address] [place] [address] Care Team Providers Care Business Solutions Director Name Role Phone Monico Reynoso MD Primary Care Provider [phone] Encounter Details Date Type Department Care Team (Latest Contact Info) Description 12/30/2021 Travel Social History Tobacco Use Types Packs/Day Years Used Date Smoking Tobacco: Never Assessed Comments No Sex and Gender Information Value Date Recorded Sex Assigned at Not on file Legal Sex Female 11:19 PM DENTIST Gender Identity Not on file Sexual Orientation Not on file COVID-19 Exposure Response Date Recorded In the last 10 days, have yo u been in contact with someone who was confirmed or suspected to have Coronavirus/COVID-19? No / Unsure 12/30/2021 3:02 PM CDT documented as of this encounter Plan of Treatment Not on file documented as of this encounter Visit Diagnoses Not on filedocumented in this encounter Care Teams Business Solutions Director Relationship Specialty Start Date End Date Monico Reynoso MD [address] [place] [address] PCP - General FAMILY PRACTICE 08/26/21 10/03/22 documented as of this encounter
--- OUTSIDE RECORDS SUMMARY | 2024-08-18 10:09 | XMS_ITS | Encounter Summary ---
Author Organization [facility] - [facility] Address [address] [facility] 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 No / Unsure 12/20/2021 9:56 AM CDT documented as of this encounter Plan of Treatment Not on file documented as of this encounter Visit Diagnoses Not on filedocumented in this encounter Care Teams Barrel Racer Relationship Specialty Start Date End Date Monico Reynoso MD [address] [place] [address] PCP - General FAMILY PRACTICE 08/26/21 10/03/22 documented as of this encounter
--- OUTSIDE RECORDS SUMMARY | 2024-08-18 10:09 | XMS_ITS | Encounter Summary ---
Author Organization [facility] - [facility] Address [address] 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 No / Unsure 12/21/2021 8:08 AM CDT documented as of this encounter Plan of Treatment Not on file documented as of this encounter Visit Diagnoses Not on filedocumented in this encounter Care Teams Plumbing Manager Relationship Specialty Start Date End Date Monico Reynoso MD [address] [place] [address] PCP - General FAMILY PRACTICE 08/26/21 10/03/22 documented as of this encounter
--- OUTSIDE RECORDS SUMMARY | 2024-08-18 10:09 | XMS_ITS | Encounter Summary ---
Author Organization [facility] - [facility] Address [address] [facility] [place] [address] [place] [address] Care Team Providers Care Lozenge Maker Name Role Phone Monico Reynoso MD Primary Care Provider [phone] Encounter Details Date Type Department Care Team (Latest Contact Info) Description 11/04/2021 Travel Social History Tobacco Use Types Packs/Day Years Used Date Smoking Tobacco: Never Assessed Comments No Sex and Gender Information Value Date Recorded Sex Assigned at Not on file Legal Sex Female 11:19 PM AGENCY OWNER Gender Identity Not on file Sexual Orientation Not on file COVID-19 Exposure Response Date Recorded In the last 10 days, have yo u been in contact with someone who was confirmed or suspected to have Coronavirus/COVID-19? No / Unsure 11/04/2021 8:29 AM CDT documented as of this encounter Plan of Treatment Not on file documented as of this encounter Visit Diagnoses Not on filedocumented in this encounter Care Teams Lozenge Maker Relationship Specialty Start Date End Date Monico Reynoso MD [address] [place] [address] PCP - General FAMILY PRACTICE 08/26/21 10/03/22 documented as of this encounter
--- OUTSIDE RECORDS SUMMARY | 2024-08-18 10:09 | XMS_ITS | Encounter Summary ---
Author Organization [facility] Address [address] [facility] [place] [address] [place] [address] Care Team Providers Care Associate Faculty Name Role Phone Monico Reynoso MD Primary Care Provider [phone] Encounter Details Date Type Department Care Team (Latest Contact Info) Description 12/16/2021 9:40 AM CDT - 12/16/2021 10:05 AM CDT Hospital Encounter [facility] [address] [place] [address] Marcello Morales, DO [address] [place], [place] [address] Discharge Disposition: Home or Self Care (Routine Discharge) Social History Tobacco Use Types Packs/Day Years Used Date Smoking Tobacco: Never Assessed Comments No Sex and Gender Information Value Date Recorded Sex Assigned at Not on file Legal 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 Gender Identity Not on file Sexual Orientation [...] Priority Date/Time Associated Diagnosis Comments XR CHEST PA+LAT Routine 12/16/2021 10:04 AM CDT Cough documented in this encounter Results * XR CHEST PA+LAT (12/16/2021 10:04 AM CDT) Anatomical Region Laterality Modality Chest Radiographic Lolita ging 12/16/2021 10:0 7 AM CDT Impressions 12/16/2021 10:07 AM CDT IMPRESSION: Negative chest Ordered By: MARCELLO MORALES Interpreted By: Rory Henry MD, 12/16/2021 10:07 AM Narrative 12/16/2021 10:07 AM CDT 2 VIEWS OF THE CHEST Clinical history: Cough Comparison: None 2 views of the chest demonstrate the cardiac silhouette and mediastinal contours to be within normal limits for size. The pulmonary vessels are normally distributed. The Lungs are clear. No consolidations or effusions are seen. Procedure Note Rory Henry MD - 12/16/2021 2 VIEWS OF THE CHEST Clinical history: Cough Comparison: None 2 views of the chest demonstrate the cardiac silhouette and mediastinalcontours to be within normal limits for size. The pulmonary vessels arenormally distributed. The Lungs are clear. No consolidations or effusionsare seen. IMPRESSION: Negative chest Ordered By: MARCELLO MORALES Interpreted By: Rory Henry MD, 12/16/2021 10:07 AM us Marcello Morales DO GENERAL IMAGING Final Resu lt documented in this encounter Visit Diagnoses Diagnosis Cough documented in this encounter Care Teams Associate Faculty Relationship Specialty Start Date End Date Monico Reynoso MD [address] [place] [address] PCP - General FAMILY PRACTICE 08/26/21 10/03/22 documented as of this encounter
--- OUTSIDE RECORDS SUMMARY | 2024-08-18 10:09 | XMS_ITS | Encounter Summary ---
Author Organization [facility] Address [address] [place] [address]. 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 Gender Identity Not on file Sexual Orientation Not on file documented as of this encounter Last Filed Vital Signs Vital Sign Reading Time Taken Comments Blood Pressure 124/78 12/30/2012 10:03 AM CDT Pulse 76 12/30/2012 10:03 AM CDT Temperature - - Respiratory Rate - - Oxygen Saturation - - Inhaled Oxygen Concentration - - Weight 90.9 kg (200 lb 7 oz) 12/30/2012 10:03 AM CDT Height 177.8 cm (5' 10 ) 12/30/2012 10:03 AM CDT Body Mass Index 28.76 12/30/2012 10:03 AM CDT documented in this encounter Progress Notes * Kailey العراقي MD - 12/30/2012 10:00 AM CDT Reason For Visit Consultation Visit Chief Complaint 1. Breast Mass Referred By / Reason Name: BERNABE MCELROY M.D. Reason: Right breast mass History of Present Illness The patient is being seen for a consultation regarding a breast mass. Belem Smith presents with complaints of breast mass (Found on routine mammo to have a mass in R breast. U/S nondiagnostic and MRI suspicious. Pt asymptomatic) Review of Systems Constitutional: no fever and no chills. Cardiovascular: no chest pain and no palpitations. Respiratory: no shortness of breath and no wheezing. Gastrointestinal: negative. Past Medical History 1. History of Denial Of Any Significant Medical History Surgical History 1. History of Appendectomy 2. History of Complete Colonoscopy 3. History of Hysteroscopy With Endometrial Ablation Family History 1. Paternal history of Acute Myocardial Infarction V17.3 2. Maternal history of Thyroid Cancer 3. Family history of Heart Disease V17.49 Denied 4. Paternal history of Breast Cancer Social History ?? Being A Social Drinker ?? Never A Smoker Current Meds 1. Multi Complete Oral Capsule; Therapy: (Recorded:[id number]) to Recorded; Dispense: 0 Days ; #: Sufficient CAPS; Refill: 0; Record; Last Updated By: Kalie Brown 2. Vitamin D 1000 UNIT Oral Capsule; Therapy: (Recorded:[id number]) to Recorded; Dispense: 0 Days ; #: Sufficient CAPS; Refill: 0; Record; Last Updated By: Kalie Brown Allergies 1. No Known Drug Allergies No Known Drug Allergies Vitals [id number] 10:03AM Heart Rate 76 Systolic 124 Diastolic 78 BMI Calculated 28.7 BSA Calculated 2.09 Height 5 ft 10 in Weight 200 lb 7 oz Physical Exam Constitutional: alert and in no acute distress. Heart: heart rate and rhythm were normal, normal S1 and S2 and no murmurs. Pulmonary: normal respiratory rhythm and effort and clear bilateral breath sounds. Breasts: normal in appearance and no palpable masses. Assessment 1. Imaging Studies Nonspecific Abnormal Findings Breast 793.89 Plan The planned procedure/s, the expected benefits,the associated risks,possible complications, and alternatives to the procedure/s have been discussed in detail with the patient or family. They state that they understand, have no further questions and agree to proceed with the procedure/s as outlined. Procedures/Surgery: R breast needle loc. bx Signatures Electronically signed by : Kailey العراقي M.D.; Dec 30 2012 10:33AM (Author) TRONIC FIELD SERVICE ENGINEER documented in this encounter Plan of Treatment Not on file documented as of this encounter Procedures Procedure Name Priority Date/Time Associated Diagnosis Comments COLONOSCOPY Routine ELECTRONIC FIELD SERVICE ENGINEER documented in this encounter Results * Colonoscopy ( ELECTRONIC FIELD SERVICE ENGINEER) Narrative [facility] TO EPIC CONVERSION - ELECTRONIC FIELD SERVICE ENGINEER Documented hx of procedure Procedure Note , Generic MD Johnathon - 06/23/2018 Documented hx of procedure us Generic Conversion Md GARCIA GI PROCEDURE ORDERABLES Final Result [facility] TO EPIC CONVERSION documented in this encounter Visit Diagnoses Not on filedocumented in this encounter
--- OUTSIDE RECORDS SUMMARY | 2024-08-18 10:09 | XMS_ITS | Encounter Summary ---
Author Organization [facility] Address [facility] [facility] [place] [address] [place] [address] Care Team Providers Care Ship Propeller Finisher Name Role Phone Monico Reynoso MD Primary Care Provider [phone] Encounter Details Date Type Department Care Team (Latest Contact Info) Description 12/16/2021 8:30 AM CDT - 12/16/2021 9:39 AM CDT Hospital Encounter [facility] [place] [address] [place] [address] Marcello Morales, [address] [place], [place] [address] Discharge Disposition: Home or Self Care (Routine Discharge) Social History Tobacco Use Types Packs/Day Years Used Date Smoking Tobacco: Never Assessed Comments No Sex and Gender Information Value Date Recorded Sex Assigned at Not on file Legal Sex Female 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
--- OUTSIDE RECORDS SUMMARY | 2024-08-18 10:09 | XMS_ITS | Encounter Summary ---
Author Organization [facility] Address [address] [facility] [place] [address] [place] [address] Care Team Providers Care Box Closing Machine Operator Name Role Phone Unavailable Primary Care Provider Unavailabl e Encounter Details Date Type Department Care Team (Late st Contact Info) Description 07/24/2013 Abstract [facility] [address] [place] [address] Kailey العراقي MD [address] [place] [address] Social History Tobacco Use Types Packs/Day Years Used Date Smoking Tobacco: Never Assessed Comments Unknown Sex and Gender Information Value Date Recorded Sex Assigned at Not on file Legal Sex Female 11:19 PM 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
--- OUTSIDE RECORDS SUMMARY | 2024-08-18 10:09 | XMS_ITS | Encounter Summary ---
Author Organization [facility] Address [address] [facility] [place] [address] [place] [address] Care Team Providers Care Nursery Worker Name Role Phone Unavailable Primary Care Provider Unavailabl e Encounter Details Date Type Department Care Team (Late st Contact Info) Description 09/16/[address] 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
--- OUTSIDE RECORDS SUMMARY | 2024-08-18 10:09 | XMS_ITS | Encounter Summary ---
Author Organization [facility] Address [address] [place] [address]. 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 Gender Identity Not on file Sexual Orientation Not on file documented as of this encounter Last Filed Vital Signs Vital Sign Reading Time Taken Comments Blood Pressure 124/78 01/22/2013 11:42 AM CDT Pulse 76 01/22/2013 11:42 AM CDT Temperature - - Respiratory Rate - - Oxygen Saturation - - Inhaled Oxygen Concentration - - Weight 88.7 kg (195 lb 8 oz) 01/22/2013 11:42 AM CDT Height 177.8 cm (5' 10 ) 01/22/2013 11:42 AM CDT Body Mass Index 28.05 01/22/2013 11:42 AM CDT documented in this encounter Progress Notes * Kailey العراقي MD - 01/22/2013 11:45 AM CDT Chief Complaint Referring doctor: Jeff Whightsel, M.D. Right needle - localized breast biopsy done on 01/06/13. Healing well. Post-Op Post-Op Breast Surgery: Belem Smith is status post excisional biopsy of the right breast. HPI: The patient reports no excessive pain, no swelling, no fever and no breast pain. PE: The surgical incision site was clean, dry and intact. Assessment: Post-op, the patient is doing well . Path benign fibroadenoma. Plan: Patient instructed to follow up as needed, 6 month mammo. Active Problems 1. Imaging Studies Nonspecific Abnormal Findings Breast 793.89 Social History ?? Being A Social Drinker ?? Never A Smoker Current Meds 1. Multi Complete Oral Capsule; Therapy: (Recorded:[id number]) to 2. Vitamin D 1000 UNIT Oral Capsule; Therapy: (Recorded:[id number]) to Allergies 1. No Known Drug Allergies Vitals 22Jan2013 11:42AM Heart Rate 76 Systolic 124 Diastolic 78 BMI Calculated 27.99 BSA Calculated 2.07 Height 5 ft 10 in Weight 195 lb 8 oz Signatures Electronically signed by : Kailey العراقي M.D.; Jan 22 2013 12:16PM (Author) ED GOODS EMBOSSING PRESS OPERATOR documented in this encounter Plan of Treatment Not on file documented as of this encounter Visit Diagnoses Not on filedocumented in this encounter
--- OUTSIDE RECORDS SUMMARY | 2024-08-18 10:09 | XMS_ITS | Encounter Summary ---
Author Organization [facility] Address [facility] [facility] [place] [address] [place] [address] Care Team Providers Care Art Librarian Name Role Phone Monico Reynoso MD Primary Care Provider [phone] Reason for Visit * Consultation/Treatment (Routine) - Closed Specialty Diagnoses / Procedures Referred By Cecy gage Referred To Contact FAMILY PRACTICE / [facility] Wound Care Diagnoses Skin graft (allograft) (autograft) failure Failed Flap Procedures HYPERBARIC OXYGEN PROCEDURE [facility] [place] [address] [place] [address] Phone: tel: Jeff Zambrano DO Phone: tel: fax: Referral ID Status Reason Start Date Expiration Date V isits Requested Visits Authorized [id number] Closed Hyperbaric Oxygen - HBO 12/21/2021 03/21/2022 24 24 Encounter Details Date Type Department Care Team (Latest Contact Info) Description 12/22/2021 10:00 AM CDT - 12/22/2021 11:59 PM CDT Hospital Encounter [facility] [place] [address] [place], [place] [address] Jeff Talbert MD [address] [facility] [address] [place] [address] Discharge Disposition: Home or Self Care (Routine Discharge) Social History Tobacco Use Types Packs/Day Years Used Date Smoking Tobacco: Never Assessed Comments No Sex and Gender Information Value Date Recorded Sex Assigned at Not on file Legal Sex Female 11: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 No / Unsure 12/22/2021 8:08 AM CDT documented as of this encounter Plan of Treatment Not on file documented as of this encounter Visit Diagnoses Not on filedocumented in this encounter Care Teams Art Librarian Relationship Specialty Start Date End Date Monico Reynoso MD [address] [place] [address] PCP - General FAMILY PRACTICE 08/26/21 10/03/22 documented as of this encounter
--- OUTSIDE RECORDS SUMMARY | 2024-08-18 10:09 | XMS_ITS | Encounter Summary ---
Author Organization [facility] Address [address] [facility] [place] [address] [place] [address] Care Team Providers Care Blocker And Polisher Gold Wheel Name Role Phone Sinan Hanson MD Primary Care Provider [phone] Monico Reynoso MD Primary Care Provider [phone] Ton Hernandez NP Primary Care Provider [phone] Monico Reynoso MD Unavailable [phone] Encounter Details Date Type Department Care Team (Late st Contact Info) Description 12/30/[address] 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 Gender Identity Not on file Sexual Orientation Not on file documented as of this encounter Plan of Treatment Not on file documented as of this encounter Visit Diagnoses Not on filedocumented in this encounter Additional Health Concerns Infection Onset Date Last Indicated Resolved Time COVID-19 Rule Out 08/26/2021 08/26/2021 08/27/2021 2:51 PM OPTOMETRIST PRESIDENT/PRACTICE OWNER documented as of this encounter Care Teams Blocker And Polisher Gold Wheel Relationship Specialty Start Date End Date Sinan Hanson MD PCP - General FAMILY PRACTICE 04/18/19 08/25/21 Monico Reynoso MD [address] [place] [address] PCP - General FAMILY PRACTICE 08/26/21 10/03/22 Ton Hernandez NP [address] [place] [address] PCP - General FAMILY PRACTICE 10/04/22 Monico Reynoso MD [address] [place] [address] FAMILY PRACTICE 10/04/22 documented as of this encounter
--- OUTSIDE RECORDS SUMMARY | 2024-08-18 10:09 | XMS_ITS | Encounter Summary ---
Author Organization [facility] Address [facility] [facility] [place] [address] [place] [address] Care Team Providers Care Communication Electronic Technician Name Role Phone Monico Reynoso MD Primary Care Provider [phone] Reason for Visit * Consultation/Treatment (Routine) - Closed Specialty Diagnoses / Procedures Referred By Cecy gage Referred To Contact FAMILY PRACTICE / [facility] Wound Care Diagnoses Skin graft (allograft) (autograft) failure Failed Flap Procedures HYPERBARIC OXYGEN PROCEDURE [facility] [place] [address] [place] [address] Phone: tel: Jeff Zambrano DO Phone: tel: fax: Referral ID Status Reason Start Date Expiration Date V isits Requested Visits Authorized [id number] Closed Hyperbaric Oxygen - HBO 12/21/2021 03/21/2022 24 24 Encounter Details Date Type Department Care Team (Latest Contact Info) Description 01/04/2022 7:42 AM CDT - 01/04/2022 11:59 PM CDT Hospital Encounter [facility] [address] [place], [place] [address] Jeff Zambrano DO [address] [place], [place] [address] Discharge Disposition: Home or Self Care (Routine Discharge) Social History Tobacco Use Types Packs/Day Years Used Date Smoking Tobacco: Never Assessed Comments No Sex and Gender Information Value Date Recorded Sex Assigned at Not on file Legal Sex Female 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
--- OUTSIDE RECORDS SUMMARY | 2024-08-18 10:09 | XMS_ITS | Encounter Summary ---
Author Organization [facility] Address [address] [facility] 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
--- OUTSIDE RECORDS SUMMARY | 2024-08-18 10:09 | XMS_ITS | Encounter Summary ---
Author Organization [facility] Address [address] [facility] 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 No / Unsure 12/26/2021 10:50 AM CDT documented as of this encounter Plan of Treatment Not on file documented as of this encounter Visit Diagnoses Not on filedocumented in this encounter Care Teams Shotblast Equipment Operator Relationship Specialty Start Date End Date Monico Reynoso MD [address] [place] [address] PCP - General FAMILY PRACTICE 08/26/21 10/03/22 documented as of this encounter
--- OUTSIDE RECORDS SUMMARY | 2024-08-18 10:09 | XMS_ITS | Encounter Summary ---
Author Organization [facility] Address [address] [facility]. 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 No / Unsure 10/26/2021 10:06 AM REFRIGERATION SYSTEMS INSTALLER documented as of this encounter Plan of Treatment Not on file documented as of this encounter Visit Diagnoses Not on filedocumented in this encounter Care Teams Business Support Professional Relationship Specialty Start Date End Date Monico Reynoso MD [address] [place] [address] PCP - General FAMILY PRACTICE 08/26/21 10/03/22 documented as of this encounter
--- OUTSIDE RECORDS SUMMARY | 2024-08-18 10:09 | XMS_ITS | Encounter Summary ---
Author Organization [facility] Address [address] [facility] [place] [address] [place] [address] Care Team Providers Care Photography Sales Associate Name Role Phone Unavailable Primary Care Provider Unavailabl e Encounter Details Date Type Department Care Team (Late st Contact Info) Description 02/04/2015 Abstract [facility] [address] [place], [place] [address] Jeff Bhakta MD [address] [place] [address] Social History Tobacco Use Types Packs/Day Years Used Date Smoking Tobacco: Never Assessed Comments Unknown Sex and Gender Information Value Date Recorded Sex Assigned at Not on file Legal Sex Female 11:19 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
--- OUTSIDE RECORDS SUMMARY | 2024-08-18 10:09 | XMS_ITS | Encounter Summary ---
Author Organization [facility] Address [address] [place] [address]. [place] [address] [place] [address] Care Team Providers Care Computer Methods Analyst Name Role Phone Unavailable Primary Care Provider Unavailabl e Encounter Details Date Type Department Care Team (Late st Contact Info) Description 01/18/[address] 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 Gender Identity Not on file Sexual Orientation Not on file documented as of this encounter Plan of Treatment Not on file documented as of this encounter Procedures Procedure Name Priority Date/Time Associated Diagnosis Comments URINE BACTERIA CULTURE Routine 01/18/2018 11:57 AM CDT documented in this encounter Results * CULTURE URINE (01/18/2018 11:57 AM CDT) SPEC DESCRIPTION URINE CLEAN CATCH 01/18/2018 12:51 PM CDT [facility] SPECIAL REQUESTS NO SPECIAL REQUEST 01/18/2018 12:51 PM CDT [facility] CULTURE RESULT [id number] ESCHERICHIA COLI 01/20/2018 8:43 AM CDT [facility] URINE SPECIMEN OBTAINED BY CLEAN CATCH PROCEDURE / Unknown 01/18/2018 11:57 AM CDT 01/18/2018 12:52 PM CDT Narrative Organism Antibiotic Method Susceptibility Unknown AMPICILLIN ERIC (MICI) <=8 Comment:BLOODURINE Unknown AMPICILLIN/SULBACTAM ERIC (MICI) <=8/4 Comment:BLOODURINE Unknown AZTREONAM ERIC (MICI) <=4 Comment:BLOODURINE Unknown CEFEPIME ERIC (MICI) <=4 Comment:BLOODURINE Unknown CEFTRIAXONE ERIC (MICI) <=8 Comment:BLOODURINE Unknown CEFTAZIDIME ERIC (MICI) <=1 Comment:BLOODURINE Unknown CEFOTAXIME ERIC (MICI) <=2 Comment:BLOODURINE Unknown CEFOXITIN ERIC (MICI) <=8 Unknown CEFOXITIN ERIC (MICI) BLOOD Unknown CEFOXITIN ERIC (MICI) URINE Unknown CEFAZOLIN ERIC (MICI) <=8 Comment:BLOODURINE Unknown CIPROFLOXACIN ERIC (MICI) <=1 Unknown CIPROFLOXACIN ERIC (MICI) BLOOD Unknown CIPROFLOXACIN ERIC (MICI) URINE Unknown CEFUROXIME ERIC (MICI) <=4 Comment:BLOODURINE Unknown ERTAPENEM ERIC (MICI) <=1 Comment:BLOODURINE Unknown NITROFURANTOIN ERIC (MICI) <=32 Comment:URINE Unknown GENTAMICIN ERIC (MICI) <=4 Comment:BLOODURINE Unknown LEVOFLOXACIN ERIC (MICI) <=2 Comment:BLOODURINE Unknown MEROPENEM ERIC (MICI) <=1 Comment:BLOODURINE Unknown PIPRACIL/TAZO ERIC (MICI) <=16 Comment:BLOODURINE Unknown TRIMETH-SULFAMETH. ERIC (MICI) <=2/38 Comment:BLOODURINE Unknown TETRACYCLINE ERIC (MICI) <=4 Comment:BLOODURINE Unknown TOBRAMYCIN ERIC (MICI) <=4 Comment:BLOODURINE Comment: Organism code(s) sent by the ancillary, '[id number]/MLESCHERICHIA COLI', not recognized. Organism 'UNKNOWN' was substituted in its place. us Generic Conversion Md GARC[facility] - GENERAL ORDERABLES Final Result [facility] [address] [place] [address], documented in this encounter Visit Diagnoses Diagnosis Dysuria documented in this encounter
--- OUTSIDE RECORDS SUMMARY | 2024-08-18 10:09 | XMS_ITS | Encounter Summary ---
Author Organization [facility] Address [address] 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 Yes 08/26/2021 5:22 AM RAIL MANAGER documented as of this encounter Plan of Treatment Not on file documented as of this encounter Visit Diagnoses Not on filedocumented in this encounter Additional Health Concerns Infection Onset Date Last Indicated Resolved Time COVID-19 Rule Out 08/26/2021 08/26/2021 08/27/2021 2:51 PM RAIL MANAGER documented as of this encounter Care Teams Plating Department Helper Relationship Specialty Start Date End Date Monico Reynoso MD [address] [place] [address] PCP - General FAMILY PRACTICE 08/26/21 10/03/22 documented as of this encounter
--- OUTSIDE RECORDS SUMMARY | 2024-08-18 10:09 | XMS_ITS | Encounter Summary ---
Author Organization [facility] Address [address] [facility] [place] [address] [place] [address] Care Team Providers Care Hand Collator Name Role Phone Unavailable Primary Care Provider Unavailabl e Encounter Details Date Type Department Care Team (Late st Contact Info) Description 12/16/2012 Abstract [facility] [address] [place], [place] [address] Jeff Bhakta MD [address] [place] [address] Social History Tobacco Use Types Packs/Day Years Used Date Smoking Tobacco: Never Assessed Comments Unknown Sex and Gender Information Value Date Recorded Sex Assigned at Not on file Legal Sex Female 11:19 PM 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
--- OUTSIDE RECORDS SUMMARY | 2024-08-18 10:09 | XMS_ITS | Encounter Summary ---
Author Organization [facility] Address formerly [facility] [place] [address] [place] [address] Care Team Providers Care Credit Risk Modeler Name Role Phone Unavailable Primary Care Provider Unavailabl e Encounter Details Date Type Department Care Team (Late st Contact Info) Description 07/26/[address] [address] , Jacob Diego MD Social History Tobacco Use Types Packs/Day Years Used Date Smoking Tobacco: Never Assessed Comments Unknown Sex and Gender Information Value Date Recorded Sex Assigned at Not on file Legal Sex Female 11:[address] INTERPRETER Gender Identity Not on file Sexual Orientation Not on file documented as of this encounter Plan of Treatment Not on file documented as of this encounter Visit Diagnoses Not on filedocumented in this encounter
--- OUTSIDE RECORDS SUMMARY | 2024-08-18 10:09 | XMS_ITS | Encounter Summary ---
Author Organization [facility] Address [address] [facility] [place] [address] [place] [address] Care Team Providers Care Gas Tester Name Role Phone Unavailable Primary Care Provider Unavailabl e Encounter Details Date Type Department Care Team (Late st Contact Info) Description 12/23/[address] 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
--- OUTSIDE RECORDS SUMMARY | 2024-08-18 10:09 | XMS_ITS | Encounter Summary ---
Author Organization [facility] Address [address] [place] [address] [place] [address] Care Team Providers Care Road Passenger Firer Name Role Phone Unavailable Primary Care Provider Unavailabl e Encounter Details Date Type Department Care Team (Late st Contact Info) Description 01/06/[address] [facility] [address] [place], [place] [id number] Kailey العراقي MD [address] [place], [place] [id number] Social History Tobacco Use Types Packs/Day Years Used Date Smoking Tobacco: Never Assessed Comments Unknown Sex and Gender Information Value Date Recorded Sex Assigned at Not on file Legal Sex Female 11:19 PM LINGO CLEANER Gender Identity Not on file Sexual Orientation Not on file documented as of this encounter Plan of Treatment Not on file documented as of this encounter Visit Diagnoses Diagnosis Benign neoplasm of breast documented in this encounter
--- OUTSIDE RECORDS SUMMARY | 2024-08-18 10:09 | XMS_ITS | Encounter Summary ---
Author Organization [facility] Address [address] [place] [address] [place] [address] Care Team Providers Care Milk Route Deliverer Name Role Phone Unavailable Primary Care Provider Unavailabl e Encounter Details Date Type Department Care Team (Late st Contact Info) Description 02/16/2016 Abstract [facility] [address] [place] [address] Jeff Bhakta MD [address] [place] [address] Social History Tobacco Use Types Packs/Day Years Used Date Smoking Tobacco: Never Assessed Comments Unknown Sex and Gender Information Value Date Recorded Sex Assigned at Not on file Legal Sex Female 11:19 PM CONSULTING PROPERTY MANAGER Gender Identity Not on file Sexual Orientation Not on file documented as of this encounter Plan of Treatment Not on file documented as of this encounter Visit Diagnoses Diagnosis Encounter for screening mammogram for malignant neoplasm of breast Other screening mammogram documented in this encounter
--- OUTSIDE RECORDS SUMMARY | 2024-08-18 10:09 | XMS_ITS | Encounter Summary ---
Author Organization [facility] Address [facility] [facility] [place] [address] [place] [address] Care Team Providers Care Column Precaster Name Role Phone Monico Reynoso MD Primary Care Provider [phone] Reason for Visit * Consultation/Treatment (Routine) - Closed Specialty Diagnoses / Procedures Referred By Cecy gage Referred To Contact FAMILY PRACTICE / [facility] Wound Care Diagnoses Skin graft (allograft) (autograft) failure Failed Flap Procedures HYPERBARIC OXYGEN PROCEDURE [facility] [place] [address] [place] [address] Phone: tel: Jeff Zambrano DO Phone: tel: fax: Referral ID Status Reason Start Date Expiration Date V isits Requested Visits Authorized [id number] Closed Hyperbaric Oxygen - HBO 12/21/2021 03/21/2022 24 24 Encounter Details Date Type Department Care Team (Latest Contact Info) Description 12/23/2021 10:00 AM CDT - 12/23/2021 11:59 PM CDT Hospital Encounter [facility] [address] [place], [place] [id number] Jeff Zambrano DO [address] [place], [place] [id number] Marcello Morales DO [address] [place] [address] Discharge Disposition: Home or Self Care (Routine Discharge) Social History Tobacco Use Types Packs/Day Years Used Date Smoking Tobacco: Never Assessed Comments No Sex and Gender Information Value Date Recorded Sex Assigned at Not on file Legal Sex Female 11:19 PM 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 No / Unsure 12/23/2021 10:26 AM CDT documented as of this encounter Plan of Treatment Not on file documented as of this encounter Visit Diagnoses Not on filedocumented in this encounter Care Teams Column Precaster Relationship Specialty Start Date End Date Monico Reynoso MD [address] [place] [address] PCP - General FAMILY PRACTICE 08/26/21 10/03/22 documented as of this encounter
--- OUTSIDE RECORDS SUMMARY | 2024-08-18 10:09 | XMS_ITS | Encounter Summary ---
Author Organization [facility] Address [facility] [facility] [place] [address] [place] [address] Care Team Providers Care Medical Educator Name Role Phone Monico Reynoso MD Primary Care Provider [phone] Reason for Visit * Consultation/Treatment (Routine) - Closed Specialty Diagnoses / Procedures Referred By Cecy gage Referred To Contact FAMILY PRACTICE / [facility] Wound Care Diagnoses Skin graft (allograft) (autograft) failure Failed Flap Procedures HYPERBARIC OXYGEN PROCEDURE [facility] [place] [address] [place] [address] Phone: tel: Jeff Zambrano DO Phone: tel: fax: Referral ID Status Reason Start Date Expiration Date V isits Requested Visits Authorized [id number] Closed Hyperbaric Oxygen - HBO 12/21/2021 03/21/2022 24 24 Encounter Details Date Type Department Care Team (Latest Contact Info) Description 01/03/2022 8:12 AM CDT - 01/03/2022 11:59 PM CDT Hospital Encounter [facility] [place] [address] [place], [place] [address] Dick Abraham MD [address] [place] [address] Discharge Disposition: Home or Self Care (Routine Discharge) Social History Tobacco Use Types Packs/Day Years Used Date Smoking Tobacco: Never Assessed Comments No Sex and Gender Information Value Date Recorded Sex Assigned at Not on file Legal Sex Female 11:19 PM BED AND BREAKFAST COOK Gender Identity Not on file Sexual Orientation [...] filedocumented in this encounter Care Teams Medical Educator Relationship Specialty Start Date End Date Monico Reynoso MD [address] [place] [address] PCP - General FAMILY PRACTICE 08/26/21 10/03/22 documented as of this encounter
--- OUTSIDE RECORDS SUMMARY | 2024-08-18 10:09 | XMS_ITS | Encounter Summary ---
Author Organization [facility] Address [address] [facility] [place] [address] [place] [address] Care Team Providers Care Automatic Embroidery Machine Tender Name Role Phone Monico Reynoso MD Primary Care Provider [phone] Reason for Visit * Consultation/Treatment (Routine) - Closed Specialty Diagnoses / Procedures Referred By Cecy gage Referred To Contact FAMILY PRACTICE / [facility] Wound Care Diagnoses Skin graft (allograft) (autograft) failure Failed Flap Procedures HYPERBARIC OXYGEN PROCEDURE [facility] [place] [address] [place] [address] Phone: tel: Jeff Zambrano DO Phone: tel: fax: Referral ID Status Reason Start Date Expiration Date V isits Requested Visits Authorized [id number] Closed Hyperbaric Oxygen - HBO 12/21/2021 03/21/2022 24 24 Encounter Details Date Type Department Care Team (Latest Contact Info) Description 12/30/2021 9:12 AM CDT - 12/30/2021 11:59 PM CDT Hospital Encounter [facility] [address] [place], [place] [address] Jeff Zambrano DO [address] [place], [place] [id number] Marcello Morales DO [address] [place] [address] Discharge Disposition: Home or Self Care (Routine Discharge) Social History Tobacco Use Types Packs/Day Years Used Date Smoking Tobacco: Never Assessed Comments No Sex and Gender Information Value Date Recorded Sex Assigned at Not on file Legal Sex Female 11:19 PM REFINERY OPERATOR HELPER CRUDE UNIT Gender Identity Not on file Sexual Orientation [...] on filedocumented in this encounter Care Teams Automatic Embroidery Machine Tender Relationship Specialty Start Date End Date Monico Ryenoso MD [address] [place] [address] PCP - General FAMILY PRACTICE 08/26/21 10/03/22 documented as of this encounter
--- OUTSIDE RECORDS SUMMARY | 2024-08-18 10:09 | XMS_ITS | Encounter Summary ---
Author Organization [facility] Address [address] [facility] [place] [address] [place] [address] Care Team Providers Care Top Tile Decorator Name Role Phone Unavailable Primary Care Provider Unavailabl e Encounter Details Date Type Department Care Team (Late st Contact Info) Description 01/28/2014 Abstract [facility] [address] [place] [address] Sinan Hanson MD [address] [place] [address] Social History Tobacco Use Types Packs/Day Years Used Date Smoking Tobacco: Never Assessed Comments Unknown Sex and Gender Information Value Date Recorded Sex Assigned at Not on file Legal Sex Female 11:19 PM SUMMER CAMP COUNSELOR Gender Identity Not on file Sexual Orientation Not on file documented as of this encounter Plan of Treatment Not on file documented as of this encounter Visit Diagnoses Diagnosis Encounter for screening mammogram for high-risk patient documented in this encounter
--- OUTSIDE RECORDS SUMMARY | 2024-08-18 10:09 | XMS_ITS | Encounter Summary ---
Author Organization [facility] Address [address] [place] [address] [place] [address] Care Team Providers Care Crutch Maker Name Role Phone Monico Reynoso MD Primary Care Provider [phone] Encounter Details Date Type Department Care Team (Latest Contact Info) Description 12/22/2021 Travel Social History Tobacco Use Types Packs/Day Years Used Date Smoking Tobacco: Never Assessed Comments No Sex and Gender Information Value Date Recorded Sex Assigned at Not on file Legal Sex Female 11:19 PM DIRECTOR OF ASSESSING Gender Identity Not on file Sexual Orientation [...] on filedocumented in this encounter Care Teams Crutch Maker Relationship Specialty Start Date End Date Monico Reynoso MD [address] [place] [address] PCP - General FAMILY PRACTICE 08/26/21 10/03/22 documented as of this encounter
--- OUTSIDE RECORDS SUMMARY | 2024-08-18 10:09 | XMS_ITS | Encounter Summary ---
Author Organization [facility] Address [address] [facility] [place] [address] [place] [address] Care Team Providers Care Adult Education Manager Name Role Phone Unavailable Primary Care Provider Unavailabl e Encounter Details Date Type Department Care Team (Latest Contact Info) Description 05/13/2014 Abstract [facility] , Generic MD Johnathon Social History Tobacco Use Types Packs/Day Years Used Date Smoking Tobacco: Never Assessed Comments Unknown Sex and Gender Information Value Date Recorded Sex Assigned at Not on file Legal Sex Female 11:19 PM DIE TRY OUT WORKER STAMPING Gender Identity Not on file Sexual Orientation Not on file documented as of this encounter Progress Notes * Generic Johnathon Delgado MD - 05/13/2014 12:45 PM CDT Reason For Visit New Patient Visit Chief Complaint Chief Complaint Free Text: Here at her daughters appointment. History of Present Illness HPI Free Text: 43 y/o female here for a rash around her mouth x 2 months. She did use a whitening paste/strips on her teeth and it was approx 2-3 months ago. No cinnamon based toothpastes. Review of Systems Complete-Female: Constitutional: negative. Active Problems 1. Abnormal finding on breast imaging (793.89) (R92.8) Past Medical History 1. History of Complete Colonoscopy 2. History of Denial Of Any Significant Medical History Surgical History 1. History of Appendectomy 2. History of Biopsy Breast Open ?? Right needle-localized breast biopsy. 3. History of Hysteroscopy With Endometrial Ablation Family History 1. Family history of Thyroid Cancer 2. Family history of Acute Myocardial Infarction (V17.3) 3. Denied: Family history of Breast Cancer 4. Family history of Heart Disease (V17.49) Social History ?? Being A Social Drinker ?? Never a smoker ?? Occasionally uses sunscreen ?? 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 No Reported Medications Recorded DARRELL = N; Record; Last Updated By: Nicolasa Maher; 05/13/2014 1:37:04 PM Allergies 1. No Known Drug Allergies Recorded By: Kalie Brown; 12/30/2012 10:08:37 AM Physical Exam Erythema with erythematous papules noted to the perioral area. Constitutional General appearance: No acute distress, well appearing and well nourished. Assessment 1. Perioral dermatitis (695.3) (L71.0) Discussion/Summary Discussion Summary Free Text: 1. POD - Discussed pathophysiology and tx options. Will have patient start on Minocycline one dailyfor 1 month. then stop. Discussed possible side effects such as upset stomach, headaches, dizzinessand sun sensitivity. Will also start Finacea twice a day for 3 months. Advised patient this can be expensive and call if too expensive. Recheck if needed. Signatures Electronically signed by : Nicolasa Maher, L.P.N.; May 28 2014 10:27PM DIE TRY OUT WORKER STAMPING (Chief Inspector/Recorder) Electronically signed by : Kaitlyn Strong NP; May 30 2014 1:18PM DIE TRY OUT WORKER STAMPING Electronically signed by : Manisha Ace M.D.; Jun 08 2014 10:23AM DIE TRY OUT WORKER STAMPING (Author) documented in this encounter Plan of Treatment Not on file documented as of this encounter Visit Diagnoses Not on filedocumented in this encounter
--- OUTSIDE RECORDS SUMMARY | 2024-08-18 10:09 | XMS_ITS | Encounter Summary ---
Author Organization [facility] Address [address] [place] [address] [place] [address] Care Team Providers Care Director Of Business Systems Name Role Phone Monico Reynoso MD Primary Care Provider [phone] Encounter Details Date Type Department Care Team (Latest Contact Info) Description 12/29/2021 Travel Social History Tobacco Use Types Packs/Day Years Used Date Smoking Tobacco: Never Assessed Comments No Sex and Gender Information Value Date Recorded Sex Assigned at Not on file Legal Sex Female 11:19 PM DEICER TESTER Gender Identity Not on file Sexual Orientation Not on file COVID-19 Exposure Response Date Recorded In the last 10 days, have yo u been in contact with someone who was confirmed or suspected to have Coronavirus/COVID-19? No / Unsure 12/29/2021 7:42 AM CDT documented as of this encounter Plan of Treatment Not on file documented as of this encounter Visit Diagnoses Not on filedocumented in this encounter Care Teams Director Of Business Systems Relationship Specialty Start Date End Date Monico Reynoso MD [address] [place] [address] PCP - General FAMILY PRACTICE 08/26/21 10/03/22 documented as of this encounter
--- OUTSIDE RECORDS SUMMARY | 2024-08-18 10:09 | XMS_ITS | Encounter Summary ---
Author Organization [facility] Address [address] [facility] [place] [address] [place] [address] Care Team Providers Care Foreign Exchange Dealer Name Role Phone Unavailable Primary Care Provider Unavailabl e Encounter Details Date Type Department Care Team (Latest Contact Info) Description 01/06/2013 Abstract [facility] Kailey العراقي MD [address] [place] [address] Social History Tobacco Use Types Packs/Day Years Used Date Smoking Tobacco: Never Assessed Comments Unknown Sex and Gender Information Value Date Recorded Sex Assigned at Not on file Legal Sex Female 11:19 PM CONSUMER ATTORNEY Gender Identity Not on file Sexual Orientation Not on file documented as of this encounter Procedure Notes * Kailey العراقي MD - 01/06/2013 11:10 AM CDT [place] [address] Patient: BETHANIE ELLIS [facility] Rec#: [id number] Birthdate: 1970 Admit/Svce Date: 01/06/2013 Disch Date: Attending Md: KAILEY العراقي MD SURGEON: Kailey العراقي M.D. Chart Document DATE OF PROCEDURE: 01/06/13 PREOPERATIVE DIAGNOSIS: Right breast mass. POSTOPERATIVE DIAGNOSIS: Right breast mass. OPERATION: Right breast needle localized biopsy. FOOD AND NUTRITION TEACHER: Libertad Carter R.N. INDICATIONS: 42-year-old who was found to have a mass on recent mammography. This was not able to be visualized on ultrasound and she underwent an MRI which was classified as suspicious. She presents now for needle localized biopsy. PROCEDURE: After undergoing needle localization, the patient was brought to the operating room and placed on the table in supine position. She was given general anesthetic, prepped and draped in the usual fashion. The guidewire was inserted at approximately the 8 o'clock position in the right breast. The skin was infiltrated with 1% lidocaine with epinephrine and a transverse incision made. Sharp dissection was carried out to excise core tissue around the guidewire. This was then sent for specimen radiograph, which confirmed the mass to have been excised. The wound was irrigated with saline and hemostasis obtained with the electrocautery. The wound was approximated with subcuticular 4-0 Monocryl. The patient tolerated the procedure well. E-Sign: Kailey العراقي M.D. 01/06/2013 05:50 P DICTATED BY: Kailey العراقي M.D. A Job/Tape ID: [id number] Trans ID: cc: Thai Morris M.D. Report Type: 04 UMER ATTORNEY documented in this encounter Plan of Treatment Not on file documented as of this encounter Visit Diagnoses Not on filedocumented in this encounter
--- OUTSIDE RECORDS SUMMARY | 2024-08-18 10:09 | XMS_ITS | Encounter Summary ---
Author Organization [facility] Address [facility] [facility] [place] [address] [place] [address] Care Team Providers Care Acetone Button Paster Name Role Phone Monico Reynoso MD Primary Care Provider [phone] Reason for Visit * Consultation/Treatment (Routine) - Closed Specialty Diagnoses / Procedures Referred By Cecy gage Referred To Contact FAMILY PRACTICE / [facility] Wound Care Diagnoses Skin graft (allograft) (autograft) failure Failed Flap Procedures HYPERBARIC OXYGEN PROCEDURE [facility] [place] [address] [place] [address] Phone: tel: Jeff Zambrano DO Phone: tel: fax: Referral ID Status Reason Start Date Expiration Date V isits Requested Visits Authorized [id number] Closed Hyperbaric Oxygen - HBO 12/21/2021 03/21/2022 24 24 Encounter Details Date Type Department Care Team (Latest Contact Info) Description 12/27/2021 10:00 AM CDT - 12/27/2021 11:59 PM CDT Hospital Encounter [facility] [place] [address] [place], [place] [address] Dick Abraham MD [address] [place] [address] Discharge Disposition: Home or Self Care (Routine Discharge) Social History Tobacco Use Types Packs/Day Years Used Date Smoking Tobacco: Never Assessed Comments No Sex and Gender Information Value Date Recorded Sex Assigned at Not on file Legal Sex Female 11:19 PM COMPLIANCE ENGINEER PRODUCTS Gender Identity Not on file Sexual Orientation [...] on filedocumented in this encounter Care Teams Acetone Button Paster Relationship Specialty Start Date End Date Monico Reynoso MD [address] [place] [address] PCP - General FAMILY PRACTICE 08/26/21 10/03/22 documented as of this encounter
--- OUTSIDE RECORDS SUMMARY | 2024-08-18 10:09 | XMS_ITS | Encounter Summary ---
Author Organization [facility] Address [address] [facility] [place] [address] [place] [address] Care Team Providers Care Cloth Bleaching Range Operator Chief Name Role Phone Monico Reynoso MD Primary Care Provider [phone] Encounter Details Date Type Department Care Team (Latest Contact Info) Description 01/02/2022 Travel Social History Tobacco Use Types Packs/Day Years Used Date Smoking Tobacco: Never Assessed Comments No Sex and Gender Information Value Date Recorded Sex Assigned at Not on file Legal Sex Female 11:19 PM GROVE SUPERINTENDENT Gender Identity Not on file Sexual Orientation [...] on filedocumented in this encounter Care Teams Cloth Bleaching Range Operator Chief Relationship Specialty Start Date End Date Monico Reynoso MD [address] [place] [address] PCP - General FAMILY PRACTICE 08/26/21 10/03/22 documented as of this encounter
--- OUTSIDE RECORDS SUMMARY | 2024-08-18 10:09 | XMS_ITS | Encounter Summary ---
Author Organization [facility] Address [address] [facility] [place] [address] [place] [address] Care Team Providers Care Analytical Engineer Name Role Phone Unavailable Primary Care Provider Unavailabl e Encounter Details Date Type Department Care Team (Late st Contact Info) Description 03/06/2018 Abstract [facility] [address] [place] [address] Sinan Hanson MD [address] [place] [address] Social History Tobacco Use Types Packs/Day Years Used Date Smoking Tobacco: Never Assessed Comments Unknown Sex and Gender Information Value Date Recorded Sex Assigned at Not on file Legal Sex Female 11:19 PM GARDEN CENTER MANAGER Gender Identity Not on file Sexual Orientation Not on file documented as of this encounter Plan of Treatment Not on file documented as of this encounter Visit Diagnoses Not on filedocumented in this encounter
--- OUTSIDE RECORDS SUMMARY | 2024-08-18 10:09 | XMS_ITS | Encounter Summary ---
Author Organization [facility] Address [address] [facility] [place] [address] [place] [address] Care Team Providers Care Sports Health Club Membership Advisors Name Role Phone Monico Reynoso MD Primary Care Provider [phone] Encounter Details Date Type Department Care Team (Latest Contact Info) Description 10/21/2021 Travel Social History Tobacco Use Types Packs/Day Years Used Date Smoking Tobacco: Never Assessed Comments No Sex and Gender Information Value Date Recorded Sex Assigned at Not on file Legal Sex Female 11:19 PM MANAGEMENT ADVISOR Gender Identity Not on file Sexual Orientation Not on file COVID-19 Exposure Response Date Recorded In the last 10 days, have yo u been in contact with someone who was confirmed or suspected to have Coronavirus/COVID-19? No / Unsure 10/21/2021 9:14 AM MANAGEMENT ADVISOR documented as of this encounter Plan of Treatment Not on file documented as of this encounter Visit Diagnoses Not on filedocumented in this encounter Care Teams Sports Health Club Membership Advisors Relationship Specialty Start Date End Date Monico Reynoso MD [address] [place] [address] PCP - General FAMILY PRACTICE 08/26/21 10/03/22 documented as of this encounter
--- OUTSIDE RECORDS SUMMARY | 2024-08-18 10:09 | XMS_ITS | Encounter Summary ---
Author Organization [facility] Address [address] [facility] [place] [place] [address] [place] [address] Care Team Providers Care Room Service Attendant Name Role Phone Monico Reynoso MD Primary Care Provider [phone] Encounter Details Date Type Department Care Team (Latest Contact Info) Description 12/23/2021 Travel Social History Tobacco Use Types Packs/Day Years Used Date Smoking Tobacco: Never Assessed Comments No Sex and Gender Information Value Date Recorded Sex Assigned at Not on file Legal Sex Female 11:19 PM UNIT SECY Gender Identity Not on file Sexual Orientation [...] on filedocumented in this encounter Care Teams Room Service Attendant Relationship Specialty Start Date End Date Monico Reynoso MD [address] [place] [address] PCP - General FAMILY PRACTICE 08/26/21 10/03/22 documented as of this encounter
--- OUTSIDE RECORDS SUMMARY | 2024-08-18 10:09 | XMS_ITS | Encounter Summary ---
Author Organization [facility] Address [facility] [facility] [place] [address] [place] [address] Care Team Providers Care Iuss Acoustic Analyst Name Role Phone Sinan Hanson MD Primary Care Provider [phone] Encounter Details Date Type Department Care Team (Late st Contact Info) Description 04/25/2019 2:00 PM CDT - 04/25/2019 2:29 PM CDT Hospital Encounter [facility] [address] [place], [place] [id number] Jeff Bhakta MD [address] [place], [place] [address] Discharge Disposition: Home or Self Care (Routine Discharge) Social History Tobacco Use Types Packs/Day Years Used Date Smoking Tobacco: Never Assessed Comments No Sex and Gender Information Value Date Recorded Sex Assigned at Not on file Legal Sex Female 11:19 PM FLYING SQUAD SALESPERSON Gender Identity Not on file Sexual Orientation Not on file documented as of this encounter Plan of Treatment Not on file documented as of this encounter Procedures Procedure Name Priority Date/Time Associated Diagnosis Comments MG DIAG ADD VIEW LT DIGI Routine 04/25/2019 2:28 PM CDT Abnormal mammogram documented in this encounter Results * MG DIAG ADD VIEW LT [...] imaging evaluation. Examination: Ultrasound breast Limited left [id number] Clinical history: There is a subtle focal [...] LT DIGI, US BREAST LT BIRAD LTD [id number] Clinical history: Screening mammogram showed a subtle [...] Jeff Bhakta MD MAMMO Final Res ult documented in this encounter Visit Diagnoses Not on filedocumented in this encounter Care Teams Iuss Acoustic Analyst Relationship Specialty Start Date End Date Sinan Hanson MD PCP - General FAMILY PRACTICE 04/18/19 08/25/21 documented as of this encounter
--- OUTSIDE RECORDS SUMMARY | 2024-08-18 10:09 | XMS_ITS | Encounter Summary ---
Author Organization [facility] Address [facility] [place] [address] [place] [address] Care Team Providers Care Application Penetration Tester Name Role Phone Monico Reynoso MD Primary Care Provider [phone] Reason for Visit * Consultation/Treatment (Routine) - Closed Specialty Diagnoses / Procedures Referred By Cecy gage Referred To Contact FAMILY PRACTICE / [facility] Wound Care Diagnoses Skin graft (allograft) (autograft) failure Failed Flap Procedures HYPERBARIC OXYGEN PROCEDURE [facility] [place] [address] [place] [address] Phone: tel: Jeff Zambrano DO Phone: tel: fax: Referral ID Status Reason Start Date Expiration Date V isits Requested Visits Authorized [id number] Closed Hyperbaric Oxygen - HBO 12/21/2021 03/21/2022 24 24 Encounter Details Date Type Department Care Team (Latest Contact Info) Description 12/26/2021 10:00 AM CDT - 12/26/2021 11:59 PM CDT Hospital Encounter [facility] [address] [place], [place] [address] Jeff Zambrano DO [address] [place], [place] [address] Marcello Morales DO [address] [place], [place] [address] Mili Garrett, FLAME BRAZING MACHINE OPERATOR [address] [place], [place] [address] Discharge Disposition: Home or Self Care (Routine Discharge) Social History Tobacco Use Types Packs/Day Years Used Date Smoking Tobacco: Never Assessed Comments No Sex and Gender Information Value Date Recorded Sex Assigned at Not on file Legal Sex Female 11:19 PM ELECTRONIC COMMUNICATIONS TECHNICIAN Gender Identity Not on file Sexual Orientation [...] on filedocumented in this encounter Care Teams Application Penetration Tester Relationship Specialty Start Date End Date Monico Reynoso MD [address] [place] [address] PCP - General FAMILY PRACTICE 08/26/21 10/03/22 documented as of this encounter
--- OUTSIDE RECORDS SUMMARY | 2024-08-18 10:09 | XMS_ITS | Encounter Summary ---
Author Organization [facility] Address [address] 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 SURGICAL PATHOLOGY CONSULTATION REPORT PATIENT: ? BETHANIE ELLIS (AGE): ? 1970 (Age: 42) SEX: ? F ROOM: ? SSAE COLLECTED: ?01/06/2013 RECEIVED: ? 01/06/2013 REPORTED: ? 01/08/2013 SUBMITTING: ? KAILEY العراقي MD COPY TO: ? AKASH MCELROY MD ? RADIOLOGY,EFFING HAM SPECIMEN SUBMITTED: RIGHT BREAST BIOPSY LOWER OUTER QUADRANT 8 O'CLOCK CLINICAL HISTORY: Referring Facility: [facility] The patient is a 42-year-old female with a right breast mass who undergoes needle localization breast biopsy. GROSS DESCRIPTION: Received is one radiographic gird upon which is a somewhat fragmented fragment of sutherland-yellow fibroadipose tissue measuring 4 x 4 x 1.4 cm, with a localizing wire within it, and one stitch on the superior surface. ??The postoperative radiographs are reviewed, which did not have any specific region marked by the radiologist. ??After inking the entire specimen blue, the inferior surface was additionally inked red. ??Serial sectioning reveals focal fibrous appearing tissue but no juan antonio neoplastic appearing mass lesions. ??The specimen is entirely submitted in cassettes A-J . The specimen was placed in formalin at 11:20 hours on 01/06/13. The specimen was retrieved from formalin at 18:30 hours on 01/07/13. J:[facility] MICROSCOPIC DESCRIPTION: A microscopic examination is performed by Dr. Abran Conte. INTERPRETATION: MASS, RIGHT BREAST, LOWER OUTER QUADRANT, 8 O'CLOCK, NEEDLE ? LOCALIZATION BIOPSY: ? FIBROADENOMA. ? FOCAL INTRADUCTAL MICROCALCIFICATI ONS. (CPT Code: ??80096 x 1) Electronicall y Signed Out By ABRAN CONTE M.D. Pathologist AFF:[facility] TO [facility] CONVERSION 01/06/2013 1:33 PM CDT 01/06/2013 1:33 PM CDT Narrative [facility] TO EPIC CONVERSION - 01/06/2013 1:33 PM CDT [id number] 10:13AM by Libertad Carter: PT. NOTIFIED OF PATH RESULTS. ON TICKLER FOR 6MO. F/U MAMMO. Result Communication: No patient communication needed at this time us Kailey العراقي MD PATHOLOGY/CYTOLOGY ORDERABLES Final Result [facility] TO EPIC CONVERSION documented in this encounter Visit Diagnoses Not on filedocumented in this encounter
--- OUTSIDE RECORDS SUMMARY | 2024-08-18 10:09 | XMS_ITS | Encounter Summary ---
Author Organization [facility] Address [address] [facility] 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
--- OUTSIDE RECORDS SUMMARY | 2024-08-18 10:09 | XMS_ITS | Encounter Summary ---
Author Organization [facility] Address [facility] [facility] [place] [address] [place] [address] Care Team Providers Care Clay Processing Labourer Name Role Phone Monico Reynoso MD Primary Care Provider [phone] Reason for Visit * Consultation/Treatment (Routine) - Closed Specialty Diagnoses / Procedures Referred By Cecy gage Referred To Contact FAMILY PRACTICE / [facility] Wound Care Diagnoses Skin graft (allograft) (autograft) failure Failed Flap Procedures HYPERBARIC OXYGEN PROCEDURE [facility] [place] [address] [place] [address] Phone: tel: Jeff Zambrano DO Phone: tel: fax: Referral ID Status Reason Start Date Expiration Date V isits Requested Visits Authorized [id number] Closed Hyperbaric Oxygen - HBO 12/21/2021 03/21/2022 24 24 Encounter Details Date Type Department Care Team (Latest Contact Info) Description 12/21/2021 10:00 AM CDT - 12/21/2021 11:59 PM CDT Hospital Encounter [facility] [address], [place] [id number] Jeff Zambrano DO [address] [place], [place] [id number] Marcello Morales DO [address], [place] [address] Mili Garrett, AUTOMATION ANALYST [address] [place], [place] [address] Discharge Disposition: Home or Self Care (Routine Discharge) Social History Tobacco Use Types Packs/Day Years Used Date Smoking Tobacco: Never Assessed Comments No Sex and Gender Information Value Date Recorded Sex Assigned at Not on file Legal Sex Female 11: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
--- OUTSIDE RECORDS SUMMARY | 2024-08-18 10:09 | XMS_ITS | Encounter Summary ---
Author Organization [facility] Address [facility] [facility] [place] [address] [place] [address] Care Team Providers Care Mobility Engineer Name Role Phone Monico Reynoso MD Primary Care Provider [phone] Encounter Details Date Type Department Care Team (Latest Contact Info) Description 11/04/2021 8:29 AM CDT - 11/04/2021 11:59 PM CDT Hospital Encounter [facility] [place] [address] [place] [address] Marcello Morales, [address] [place], [place] [address] Discharge Disposition: Home or Self Care (Routine Discharge) Social History Tobacco Use Types Packs/Day Years Used Date Smoking Tobacco: Never Assessed Comments No Sex and Gender Information Value Date Recorded Sex Assigned at Not on file Legal Sex Female 11: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
--- OUTSIDE RECORDS SUMMARY | 2024-08-18 10:09 | XMS_ITS | Encounter Summary ---
Author Organization [facility] Address [address] [place] [address]. [place], [place] [address] [place] [address] Care Team Providers Care Fancy Stitcher Name Role Phone Sinan Hanson MD Primary Care Provider [phone] Reason for Referral * Imaging (Routine) - Closed Specialty Diagnoses / Procedures Referred By Cecy gage Referred To Contact RADIOLOGY Diagnoses Abnormal mammogram Procedures US BREAST LT [employer] Jeff Bhakta MD [address] [place] [address] Phone: tel: fax: Referral ID Status Reason Start Date Expiration Date Visits Re quested Visits Authorized [id number] Closed 04/22/2019 05/23/2020 1 1 Reason for Visit * Imaging (Routine) - Closed Specialty Diagnoses / Procedures Referred By Cecy gage Referred To Contact RADIOLOGY Diagnoses Abnormal mammogram Procedures US BREAST LT [employer] Jeff Bhakta MD [address] [place] [address] Phone: tel: fax: Referral ID Status Reason Start Date Expiration Date Visits Re quested Visits Authorized [id number] Closed 04/22/2019 05/23/2020 1 1 Encounter Details Date Type Department Care Team (Late st Contact Info) Description 04/25/2019 2:30 PM CDT - 04/25/2019 11:59 PM CDT [facility] [address] [place] [address] Jeff Bhakta MD [address] [place] [address] Discharge Disposition: Home or Self Care (Routine Discharge) Social History Tobacco Use Types Packs/Day Years Used Date Smoking Tobacco: Never Assessed Comments No Sex and Gender Information Value Date Recorded Sex Assigned at Not on file Legal 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 Gender Identity Not on file Sexual Orientation Not on file documented as of this encounter Plan of Treatment Not on file documented as of this encounter Procedures Procedure Name Priority Date/Time Associated Diagnosis Comments US BREAST LT [employer] Routine 04/25/2019 2:43 PM CDT Abnormal mammogram documented in this encounter Results * US BREAST LT [employer] (04/25/2019 2:43 PM CDT) Anatomical Region Laterality Modality Breast Left Ultrasound 04/25/2019 4:54 PM CDT Impressions 04/25/2019 4:57 PM CDT IMPRESSION: Likely benign compressible focal tissue asymmetry. Recommendation: 1: Ultrasound around the nipple mostly the upper part between 8 and 4 left ? Assessment: ACR BI-RADS Category 0 - Need additional imaging evaluation. Examination: Ultrasound breast Limited left [id number] Clinical history: There is a subtle focal [...] LT DIGI, US BREAST LT BIRAD LTD [id number] Clinical history: Screening mammogram showed a subtle [...] or architectural distortion. us Jeff Bhakta MD ULTRASOUND Final Res ult documented in this encounter Visit Diagnoses Diagnosis Abnormal mammogram Abnormal mammogram, unspecified documented in this encounter Care Teams Fancy Stitcher Relationship Specialty Start Date End Date Sinan Hanson MD PCP - General FAMILY PRACTICE 04/18/19 08/25/21 documented as of this encounter
--- OUTSIDE RECORDS SUMMARY | 2024-08-18 10:09 | XMS_ITS | Encounter Summary ---
Author Organization [facility] - [facility] Address [address] [place] [address] [place] [address] Care Team Providers Care Cardiopulmonary Technician And Eeg Tech Name Role Phone Monico Reynoso MD Primary Care Provider [phone] Encounter Details Date Type Department Care Team (Latest Contact Info) Description 10/28/2021 Travel Social History Tobacco Use Types Packs/Day Years Used Date Smoking Tobacco: Never Assessed Comments No Sex and Gender Information Value Date Recorded Sex Assigned at Not on file Legal Sex Female 11:19 PM ANALYTICAL LAB ANALYST Gender Identity Not on file Sexual Orientation Not on file COVID-19 Exposure Response Date Recorded In the last 10 days, have yo u been in contact with someone who was confirmed or suspected to have Coronavirus/COVID-19? No / Unsure 10/28/2021 7:44 AM ANALYTICAL LAB ANALYST documented as of this encounter Plan of Treatment Not on file documented as of this encounter Visit Diagnoses Not on filedocumented in this encounter Care Teams Cardiopulmonary Technician And Eeg Tech Relationship Specialty Start Date End Date Monico Reynoso MD [address] [place] [address] PCP - General FAMILY PRACTICE 08/26/21 10/03/22 documented as of this encounter
--- OUTSIDE RECORDS SUMMARY | 2024-08-18 10:09 | XMS_ITS | Encounter Summary ---
Author Organization [facility] - [facility] Address [address] [place] [address]. 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 Yes 08/26/2021 5:22 AM LEAD WEB APPLICATION DEVELOPER documented as of this encounter Plan of Treatment Not on file documented as of this encounter Visit Diagnoses Not on filedocumented in this encounter Additional Health Concerns Infection Onset Date Last Indicated Resolved Time COVID-19 Rule Out 08/26/2021 08/26/2021 08/27/2021 2:51 PM LEAD WEB APPLICATION DEVELOPER documented as of this encounter Care Teams Metallurgical Technician Relationship Specialty Start Date End Date Monico Reynoso MD [address] [place] [address] PCP - General FAMILY PRACTICE 08/26/21 2 documented as of this encounter
--- OUTSIDE RECORDS SUMMARY | 2024-08-18 10:09 | XMS_ITS | Encounter Summary ---
Author Organization [facility] Address [facility] [facility] [place] [address] [place] [address] Care Team Providers Care Dynamotor Repairer Name Role Phone Monico Reynoso MD Primary Care Provider [phone] Reason for Visit * Consultation/Treatment (Routine) - Closed Specialty Diagnoses / Procedures Referred By Cecy gage Referred To Contact FAMILY PRACTICE / [facility] Wound Care Diagnoses Skin graft (allograft) (autograft) failure Failed Flap Procedures HYPERBARIC OXYGEN PROCEDURE [facility] [place] [address] [place] [address] Phone: tel: Jeff Zambrano DO Phone: tel: fax: Referral ID Status Reason Start Date Expiration Date V isits Requested Visits Authorized [id number] Closed Hyperbaric Oxygen - HBO 12/21/2021 03/21/2022 24 24 Encounter Details Date Type Department Care Team (Latest Contact Info) Description 12/29/2021 8:16 AM CDT - 12/29/2021 11:59 PM CDT Hospital Encounter 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
--- OUTSIDE RECORDS SUMMARY | 2024-08-18 10:09 | XMS_ITS | Encounter Summary ---
Author Organization [facility] Address [address] [facility] 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 [place], [place] ? PATIENT NAME: BETHANIE ELLIS ?? MED REC #: ??[id number] ADMIT DATE: ?? DISCH DATE: ??01/06/13 ?? PATIENT TYPE: ??DEP SDC ORDER #: ??[id number] ?? PT LOCATION: ??SDS AGE/SEX: ??42F DATE OF : ??1970 ?? ATTENDING PHYS: ??KAILEY العراقي MD ? EXAM DATE: ??01/06/2013 ?? MG GUIDE NEEDLE PLACEMENT RT ?? Accession No: [id number] ?? EXAM DATE: ??01/06/2013 ?? MG BREAST SPECIMEN ?? Accession No: [id number] ?? Chart Document ? CLINICAL HISTORY: ??Ms. Ellis is a 42-year-old female who underwent ?? screening mammography and was found to have a focal asymmetry in the right ?? breast and subsequently underwent diagnostic evaluation which included ?? diagnostic mammography, focused ultrasound examination and MRI evaluation ?? of the right breast. ??A lesion persisted on spot compression mammography ?? and was found to be suspicious on MRI evaluation though appeared to be ?? sonographically occult. ??Patient is now referred for wire localization ?? prior to excisional biopsy of the area in question. ??No reported family or ?? personal history of breast cancer. ? PROPOSED PROCEDURE: ??Wire localization of focal asymmetry in the outer and ?? lower quadrant of the right breast. ? PERFORMED PROCEDURE: ?? 1. ??Mammographic guided wire localization of focal asymmetry in the right ?? breast. ?? 2. ??Second look ultrasound examination of the right breast prior to ?? mammographic localization. ?? 3. ??Specimen radiography and interpretation. ? PROCEDURE: ??Informed consent was obtained. ??The patient was transferred to ?? the ultrasound suite for second look ultrasound to reevaluate for possible ?? ultrasound guided localization. ??Directed ultrasound was performed from the ?? 7 to 11 o'clock position within the right breast. ??No ultrasound correlate ?? was found to match that seen on the MRI examination and also on ?? mammography. ??No images were saved from this evaluation. ??The patient was ?? subsequently transferred to the mammography suite. ??Preprocedural ?? mammographic images were obtained including CC, MLO, and ML projections. ?? This showed the focal asymmetry to persist in the outer and slight lower ?? quadrant of the right breast. ??Given the shorter approach, the lateral ?? approach was chosen. ??The patient was placed in the mammographic grid in ?? the lateral to medial position. ??Skin was cleansed and satisfactory local ?? anesthesia was obtained using a 1% lidocaine solution with bicarbonate. ?? Next, modified Kopans 5 cm needle was deployed. ??As the needle was placed, ?? there is a noticeable change in the firmness of the breast tissue. ??Patient ?? was then positioned in the CC projection and the wire had shown to be in ?? good position along with the needle, was then exposed using a pullback ?? technique. ??Post placement mammography showed the wire to be in ?? satisfactory position within the lesion. ??This was then secured to the skin ?? and the patient was transferred to the operative suite. ??Patient tolerated ?? the procedure well without complication. ? Postsurgical specimen radiographs were submitted and demonstrate rounded ?? asymmetry within the excised margin of tissue without gross involvement of ?? the margin. ??Specimen also included the localization wire. ? IMPRESSION ? Technically successful mammographic guided wire localization of focal ?? asymmetry in the outer and slightly lower portion of the right breast. ? 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 ??FOCAL INTRADUCTAL MICROCALCIFICATIONS. ? E-Sign: ?? Dustin De La Paz MD 01/08/2013 07:25 P ? DICTATED BY: ??Dustin De La Paz MD ?? D: ?? 01/06/2013 ?08:11 P ?Job/Tape ID: ?? [id number] ?? T: ?? 01/06/2013 10:30 P ? Trans ID: ??[id number] ? cc: ?Kailey العراقي M.D. ?Jeff Bhakta M.D. ? Report Type: ??39 ? Procedure Note Jacob Delgado MD - 06/12/2018 [place], [place] PATIENT NAME: BETHANIE ELLIS [facility] REC #: [id number] ADMIT DATE: DISCH DATE: 01/06/13 PATIENT TYPE: [facility] PT LOCATION: [facility] AGE/SEX: 42F DATE OF : 1970 ATTENDING PHYS: KAILEY العراقي MD EXAM DATE: 01/06/2013 MG GUIDE NEEDLE PLACEMENT RT Accession No: [id number] EXAM DATE: 01/06/2013 MG BREAST SPECIMEN Accession No: [id number] Chart Document CLINICAL HISTORY: Ms. Ellis is a 42-year-old female who underwent screening mammography and was found to have a focal asymmetry in theright breast and subsequently underwent diagnostic evaluation which included diagnostic mammography, focused ultrasound examination and MRI evaluation of the right breast. A lesion persisted on spot compression mammography and was found to be suspicious on MRI evaluation though appeared to be sonographically occult. Patient is now referred for wire localization prior to excisional biopsy of the area in question. No reported familyor personal history of breast cancer. PROPOSED PROCEDURE: Wire localization of focal asymmetry in the outerand lower quadrant of the right breast. PERFORMED PROCEDURE: 1. Mammographic guided wire localization of focal asymmetry in the right breast. 2. Second look ultrasound examination of the right breast prior to mammographic localization. 3. Specimen radiography and interpretation. PROCEDURE: Informed consent was obtained. The patient was transferredto the ultrasound suite for second look ultrasound to reevaluate forpossible ultrasound guided localization. Directed ultrasound was performed fromthe 7 to 11 o'clock position within the right breast. No ultrasoundcorrelate was found to match that seen on the MRI examination and also on mammography. No images were saved from this evaluation. The patient was subsequently transferred to the mammography suite. Preprocedural mammographic images were obtained including CC, MLO, and ML projections. This showed the focal asymmetry to persist in the outer and slight lower quadrant of the right breast. Given the shorter approach, the lateral approach was chosen. The patient was placed in the mammographic grid in the lateral to medial position. Skin was cleansed and satisfactory local anesthesia was obtained using a 1% lidocaine solution with bicarbonate. Next, modified Kopans 5 cm needle was deployed. As the needle wasplaced, there is a noticeable change in the firmness of the breast tissue.Patient was then positioned in the CC projection and the wire had shown to be in good position along with the needle, was then exposed using a pullback technique. Post placement mammography showed the wire to be in satisfactory position within the lesion. This was then secured to theskin and the patient was transferred to the operative suite. Patienttolerated the procedure well without complication. Postsurgical specimen radiographs were submitted and demonstrate rounded asymmetry within the excised margin of tissue without gross involvementof the margin. Specimen also included the localization wire. IMPRESSION Technically successful mammographic guided wire localization of focal asymmetry in the outer and slightly lower portion of the right breast. PATHOLOGY: FIBROADENOMA. FOCAL INTRADUCTAL MICROCALCIFICATIONS. E-Sign: Dustin De La Paz MD 01/08/2013 07:25 P DICTATED BY: Dustin De La Paz MD P Job/Tape ID: [id number] Trans ID: [id number] cc: Thai Morris M.D. Report Type: 39 us Kailey العراقي MD MAMMO Final Result documented in this encounter Visit Diagnoses Not on filedocumented in this encounter
--- OUTSIDE RECORDS SUMMARY | 2024-08-18 10:09 | XMS_ITS | Encounter Summary ---
Author Organization [facility] Address [address] [facility] 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
--- OUTSIDE RECORDS SUMMARY | 2024-08-18 10:09 | XMS_ITS | Encounter Summary ---
Author Organization [facility] - [facility] Address [address] [facility] [place] [address] [place] [address] Care Team Providers Care Mechanical Facilities Technician Name Role Phone Monico Reynoso MD Primary Care Provider [phone] Encounter Details Date Type Department Care Team (Latest Contact Info) Description 12/27/2021 Travel Social History Tobacco Use Types Packs/Day Years Used Date Smoking Tobacco: Never Assessed Comments No Sex and Gender Information Value Date Recorded Sex Assigned at Not on file Legal Sex Female 11:19 PM POTATO SEED CUTTER Gender Identity Not on file Sexual [...] on filedocumented in this encounter Care Teams Mechanical Facilities Technician Relationship Specialty Start Date End Date Monico Reynoso MD [address] [place] [address] PCP - General FAMILY PRACTICE 08/26/21 10/03/22 documented as of this encounter
--- OUTSIDE RECORDS SUMMARY | 2024-08-18 10:09 | XMS_ITS | Encounter Summary ---
Author Organization [facility] Address [facility] [facility] [place] [address] [place] [address] Care Team Providers Care Marketing Campaign Analyst Name Role Phone Sinan Hanson MD Primary Care Provider [phone] Encounter Details Date Type Department Care Team (Late st Contact Info) Description 04/18/2019 7:15 AM CDT - 04/18/2019 11:59 PM CDT Hospital Encounter [facility] [address] [place], [place] [address] Jeff Bhakta MD [address] [place], [place] [address] Discharge Disposition: Home or Self Care (Routine Discharge) Social History Tobacco Use Types Packs/Day Years Used Date Smoking Tobacco: Never Assessed Comments No Sex and Gender Information Value Date Recorded Sex Assigned at Not on file Legal Sex Female 11:19 PM PRICING SPECIALIST Gender Identity Not on file Sexual Orientation Not on file documented as of this encounter Plan of Treatment Not on file documented as of this encounter Procedures Procedure Name Priority Date/Time Associated Diagnosis Comments MG SCREENING JAYLENE DIGI Routine 04/18/2019 7:39 AM CDT Visit for screening mammogram documented in this encounter Results * MG SCREENING JAYLNEE DIGI (04/18/2019 7:39 AM CDT) Anatomical Region Laterality Modality Breast Bilateral Mammography 04/18/2019 8:39 AM CDT Impressions 04/18/2019 8:42 AM CDT IMPRESSION: Small tissue asymmetry in the left breast for which further imaging evaluation is recommended. Recommendation: Spot compression left CC and MLO views. Left ML view Further evaluation with ultrasound per discretion of the interpreting physician. Assessment: ACR BI-RADS CATEGORY 0 - NEED ADDITIONAL IMAGING EVALUATION. Interpreted By: Jackson Herzog DO, 04/18/2019 8:39 AM Narrative 04/18/2019 8:42 AM CDT Examination: BILATERAL SCREENING MAMMOGRAM Clinical Indication: ??48 years ??of age female routine screening. No personal or family history of breast cancer. Prior benign right breast biopsy. Comparison: Mammograms dating back to 02/04/2015. Technique: Digital CC & MLO views. Study read with the assistance of a computer-aided detection system. Tissue density: There are scattered areas of fibroglandular density. Findings: There is a small somewhat nodular appearing tissue asymmetry in the anterior aspect of the left breast. Further imaging evaluation is recommended. Otherwise stable fibroglandular pattern bilaterally. Stable postbiopsy changes in the right breast. No malignant appearing calcifications. No skin thickening. No evidence of suspicious interval change identified in the right breast. No suspicious masses, malignant appearing calcifications, skin thickening or other abnormalities are present. No findings of concern with computer-assisted software. ? us Jeff Bhakta MD MAMMO Final Res ult documented in this encounter Visit Diagnoses Not on filedocumented in this encounter Care Teams Marketing Campaign Analyst Relationship Specialty Start Date End Date Sinan Hanson MD PCP - General FAMILY PRACTICE 04/18/19 08/25/21 documented as of this encounter
--- OUTSIDE RECORDS SUMMARY | 2024-08-18 10:09 | XMS_ITS | Encounter Summary ---
Author Organization [facility] Address [address] [place] [address]. [place] [address] [place] [address] Care Team Providers Care Project Financial Analyst Name Role Phone Monico Reynoso MD Primary Care Provider [phone] Encounter Details Date Type Department Care Team (Late st Contact Info) Description 08/26/2021 2:40 PM CHIEF BANK EXAMINER Laboratory Only [facility] Family and Internal Medicine - [place] [address] [place] [address] Sully Lyn, [address] [place] [address] Social History Tobacco Use Types Packs/Day Years Used Date Smoking Tobacco: Never Assessed Comments No Sex and Gender Information Value Date Recorded Sex Assigned at Not on file Legal Sex Female 11:19 PM CHIEF BANK EXAMINER Gender Identity Not on file Sexual Orientation Not on file COVID-19 Exposure Response Date Recorded In the last month, have you been in contact with someone who was confirmed or suspected to have Coronavirus / COVID-19? Yes 08/26/2021 5:22 AM CHIEF BANK EXAMINER documented as of this encounter Plan of Treatment Not on file documented as of this encounter Procedures Procedure Name Priority Date/Time Associated Diagnosis Comments CORONAVIRUS (COVID 19) PCR Routine 08/26/2021 2:32 PM CHIEF BANK EXAMINER Encounter for screening laboratory testing for COVID-19 virus documented in this encounter Results * CORONAVIRUS (COVID 19) PCR ([facility]) (08/26/2021 2:32 PM CHIEF BANK EXAMINER) SPEC DESCRIPTION NASAL 08/26/19 2:32 PM CHIEF BANK EXAMINER [facility] CORONAVIRUS SARS COV 2 PCR (RESP) NEGATIVE NEGATIVE 08/27/2021 2:50 PM CHIEF BANK EXAMINER [facility] Comment: THE SARS-CoV-2 TEST HAS BEEN AUTHORIZED BY THE FDA UNDER AN EUA FOR USE BY AUTHORIZED LABORATORIES. PERFORMED BY NUCLEIC ACID AMPLIFICATION PCR FIRST TEST NO 08/26/2021 2:32 PM CHIEF BANK EXAMINER [facility] EMPLOYED IN HEALTHCARE NO 08/26/2021 2:32 PM CHIEF BANK EXAMINER [facility] SYMPTOMATIC DEFINED BY CDC NO 08/26/2021 2:32 PM CHIEF BANK EXAMINER [facility] HOSPITALIZATION STATUS NO 08/26/2021 2:32 PM CHIEF BANK EXAMINER [facility] PATIENT IN ICU NO 08/26/2021 2:32 PM CHIEF BANK EXAMINER [facility] NO 08/26/2021 2:32 PM CHIEF BANK EXAMINER [facility] NOT 08/26/2021 2:32 PM CHIEF BANK EXAMINER [facility] NASAL STRUCTURE / Unknown 08/26/2021 2:32 PM CHIEF BANK EXAMINER us Sully Lyn NP MICROBIOLOGY - GENERAL JULIANE REYEZ Final Result [facility] [address] [place] [address], documented in this encounter Visit Diagnoses Diagnosis Encounter for screening laboratory testing for COVID-19 virus- Primary documented in this encounter Additional Health Concerns Infection Onset Date Last Indicated Resolved Time COVID-19 Rule Out 08/26/2021 08/26/2021 08/27/2021 2:51 PM CHIEF BANK EXAMINER documented as of this encounter Care Teams Project Financial Analyst Relationship Specialty Start Date End Date Monico Reynoso MD [address] [place] [address] PCP - General FAMILY PRACTICE 08/26/21 2 documented as of this encounter
--- OUTSIDE RECORDS SUMMARY | 2024-08-18 10:09 | XMS_ITS | Encounter Summary ---
Author Organization [facility] Address [facility] [place] [address] [place] [address] Care Team Providers Care Banking Pin Adjuster Name Role Phone Monico Reynoso MD Primary Care Provider [phone] Encounter Details Date Type Department Care Team (Latest Contact Info) Description 10/21/2021 10:37 AM PADDING MACHINE OPERATOR - 10/21/2021 11:59 PM PADDING MACHINE OPERATOR Hospital Encounter [facility] [address] [place], [place] [address] Marcello Morales, DO [address] [place], [place] [id number] Discharge Disposition: Home or Self Care (Routine Discharge) Social History Tobacco Use Types Packs/Day Years Used Date Smoking Tobacco: Never Assessed Comments No Sex and Gender Information Value Date Recorded Sex Assigned at Not on file Legal Sex Female 11:19 PM PADDING MACHINE OPERATOR Gender Identity Not on file Sexual Orientation Not on file COVID-19 Exposure Response Date Recorded In the last 10 days, have yo u been in contact with someone who was confirmed or suspected to have Coronavirus/COVID-19? No / Unsure 10/21/2021 9:14 AM PADDING MACHINE OPERATOR documented as of this encounter Plan of Treatment Not on file documented as of this encounter Procedures Procedure Name Priority Date/Time Associated Diagnosis Comments HC BODY FLUID CULTURE Routine 10/21/2021 11:30 AM PADDING MACHINE OPERATOR Anorectal fistula CULTURE, ANAEROBIC Routine 10/21/2021 11 :30 AM PADDING MACHINE OPERATOR Anorectal fistula documented in this encounter Results * (ABNORMAL) CULTURE, WOUND, W/GRAM STAIN (10/21/2021 11:30 AM PADDING MACHINE OPERATOR) SPEC DESCRIPTION RECTAL 10/21/2021 11:45 AM PADDING MACHINE OPERATOR [facility] SPECIAL REQUESTS NO SPECIAL REQUEST 10/21/2021 11:45 AM PADDING MACHINE OPERATOR [facility] GRAM STAIN RESULT FEW NEUTROPHILIC WBC 10/22/2021 10:48 AM PADDING MACHINE OPERATOR [facility] GRAM STAIN RESULT RARE GRAM POSITIVE RODS 10/22/2021 10:48 AM [facility] GRAM STAIN RESULT RARE GRAM POSITIVE COCCI 10/22/2021 10:48 AM [facility] GRAM STAIN RESULT RARE EPITHELIAL CELLS 10/22/2021 10:48 AM [facility] CULTURE RESULT ESCHERICHIA COLI(A) 10/24/2021 8:10 AM [facility] CULTURE RESULT ENTEROCOCCUS FAECALIS(A) 10/24/2021 8:10 AM [facility] CULTURE RESULT STAPHYLOCOCCUS LUGDUNENSIS(A) 10/24/2021 8:10 AM [facility] RECTAL SWAB / Unknown 10/21/2021 11:30 AM PADDING MACHINE OPERATOR 10/21/2021 1:05 PM PADDING MACHINE OPERATOR Narrative Organism Antibiotic Method Susceptibility Escherichia coli AMPICILLIN ERIC (VITEK) 8: Sensitive Escherichia coli AMOXICILLIN/CLAVULANIC A ERIC (VITEK) DEDUCED SUSCEPTIBLE: Sensitive Escherichia coli AMPICILLIN/SULBACTAM ERIC (VITEK) 4: Sensitive Escherichia coli AZTREONAM ERIC (VITEK) <=1: Sensitive Escherichia coli CEFEPIME ERIC (VITEK) <=1: Sensitive Escherichia coli CEFTRIAXONE ERIC (VITEK) <=1: Sensitive Escherichia coli CEFTAZIDIME ERIC (VITEK) <=1: Sensitive Escherichia coli CEFOTAXIME ERIC (VITEK) DEDUCED SUSCEPTIBLE: Sensitive Escherichia coli CEFAZOLIN ERIC (VITEK) <=4: Sensitive Escherichia coli ESBL ERIC (VITEK) NEG: Sensitive Escherichia coli ERTAPENEM ERIC (VITEK) <=0.5: Sensitive Escherichia coli GENTAMICIN ERIC (VITEK) <=1: Sensitive Escherichia coli LEVOFLOXACIN ERIC (VITEK) <=0.12: Sensitive Escherichia coli MEROPENEM ERIC (VITEK) <=0.25: Sensitive Escherichia coli PIPRACIL/TAZO ERIC (VITEK) <=4: Sensitive Escherichia coli TRIMETH-SULFAMETH. ERIC (VITEK) <=20: Sensitive Escherichia coli TOBRAMYCIN ERIC (VITEK) <=1: Sensitive Enterococcus faecalis AMPICILLIN ERIC (VITEK) <=2: Sensitive Enterococcus faecalis AMPICILLIN/SULBACTAM ERIC (VITEK) DEDUCED SUSCEPTIBLE: Sensitive Enterococcus faecalis CIPROFLOXACIN ERIC (VITEK) <=0.5: Sensitive Enterococcus faecalis GENT. SYNERGY SCREEN ERIC (VITEK) Sensitive Enterococcus faecalis LEVOFLOXACIN ERIC (VITEK) 0.5: Sensitive Enterococcus faecalis LINEZOLID ERIC (VITEK) 2: Sensitive Enterococcus faecalis PENICILLIN G ERIC (VITEK) 1: Sensitive Enterococcus faecalis STR. SYNERGY SCR ERIC (VITEK) Sensitive Enterococcus faecalis TETRACYCLINE ERIC (VITEK) >=16: Resistant Enterococcus faecalis VANCOMYCIN ERIC (VITEK) 2: Sensitive Enterococcus faecalis BETA LACTAMASE ERIC (VITEK) NEG: Sensitive Staphylococcus lugdunensis AMOXICILLIN/CLAVULANIC A ERIC (VITEK) DEDUCED RESISTANT: Resistant Staphylococcus lugdunensis AMPICILLIN/SULBACTAM ERIC (VITEK) DEDUCED RESISTANT: Resistant Staphylococcus lugdunensis AZITHROMYCIN ERIC (VITEK) DEDUCED SUSCEPTIBLE: Sensitive Staphylococcus lugdunensis CEFEPIME ERIC (VITEK) DEDUCED RESISTANT: Resistant Staphylococcus lugdunensis CEFTRIAXONE ERIC (VITEK) DEDUCED RESISTANT: Resistant Staphylococcus lugdunensis CEFOTAXIME ERIC (VITEK) DEDUCED RESISTANT: Resistant Staphylococcus lugdunensis CEFOXITIN ERIC (VITEK) DEDUCED RESISTANT: Resistant Staphylococcus lugdunensis CEFAZOLIN ERIC (VITEK) DEDUCED RESISTANT: Resistant Staphylococcus lugdunensis CLINDAMYCIN ERIC (VITEK) <=0.25: Sensitive Staphylococcus lugdunensis CEFUROXIME ERIC (VITEK) DEDUCED RESISTANT: Resistant Staphylococcus lugdunensis ERYTHROMYCIN ERIC (VITEK) <=0.25: Sensitive Staphylococcus lugdunensis GENTAMICIN ERIC (VITEK) <=0.5: Sensitive Staphylococcus lugdunensis INDUCIBLE CLINDAMYCIN RESISTANT ERIC (VITEK) NEG: Sensitive Staphylococcus lugdunensis OXACILLIN ERIC (VITEK) >=4: Resistant Staphylococcus lugdunensis PENICILLIN G ERIC (VITEK) >=0.5: Resistant Staphylococcus lugdunensis RIFAMPIN ERIC (VITEK) <=0.5: Sensitive Staphylococcus lugdunensis TETRACYCLINE ERIC (VITEK) <=1: Sensitive Staphylococcus lugdunensis VANCOMYCIN ERIC (VITEK) <=0.5: Sensitive Staphylococcus lugdunensis BETA LACTAMASE ERIC (VITEK) POS: Resistant Staphylococcus lugdunensis CEFTIOFUR ERIC (VITEK) DEDUCED RESISTANT: Resistant Staphylococcus lugdunensis CEFIXIME ERIC (VITEK) DEDUCED RESISTANT: Resistant Staphylococcus lugdunensis CEFPODOXIME ERIC (VITEK) DEDUCED RESISTANT: Resistant Staphylococcus lugdunensis CEFTAZIDIME ERIC (VITEK) DEDUCED RESISTANT: Resistant Staphylococcus lugdunensis DOXYCYCLINE ERIC (VITEK) DEDUCED SUSCEPTIBLE: Sensitive Staphylococcus lugdunensis MINOCYCLINE ERIC (VITEK) DEDUCED SUSCEPTIBLE: Sensitive Marcello Morales DO MICROBIOLOGY - GENERAL ORD ERABLES Final Result [facility] [address] [place] [address], * (ABNORMAL) CULTURE, ANAEROBIC (10/21/2021 11:30 AM PADDING MACHINE OPERATOR) SPEC DESCRIPTION RECTAL 10/21/2021 11:45 AM PADDING MACHINE OPERATOR [facility] SPECIAL REQUESTS NO SPECIAL REQUEST 10/21/2021 11:45 AM PADDING MACHINE OPERATOR [facility] CULTURE RESULT PREVOTELLA BIVIA SENT TO REFERENCE LAB [facility] ON 10/24/21 (A) 10/27/2021 8:03 AM PADDING MACHINE OPERATOR [facility] RECTAL SWAB / Unknown 10/21/2021 11:30 AM PADDING MACHINE OPERATOR 10/21/2021 1:04 PM PADDING MACHINE OPERATOR Narrative Organism Antibiotic Method Susceptibility Prevotella bivia CEFOXITIN ERIC (ETEST) 1.5: Sensitive Prevotella bivia MEROPENEM ERIC (ETEST) 0.047: Sensitive Prevotella bivia METRONIDAZOLE ERIC (ETEST) 0.125: Sensitive Prevotella bivia AMPICILLIN/SULBACTAM ERIC (ETEST) 0.064: Sensitive Prevotella bivia MOXIFLOXACIN ERIC (ETEST) 0.25: Sensitive Prevotella bivia CLINDAMYCIN ERIC (ETEST) >256: Resistant Prevotella bivia PENICILLIN ERIC (ETEST) 4: Resistant Prevotella bivia PIPRACIL/TAZO ERIC (ETEST) 0.125: Sensitive Marcello Morales DO MICROBIOLOGY - GENERAL ORD ERABLES Final Result [facility] [address] [place] [address], [id number] [facility] [address] [place] [address], documented in this encounter Visit Diagnoses Diagnosis Anorectal fistula- Primary Anal fistula documented in this encounter Care Teams Banking Pin Adjuster Relationship Specialty Start Date End Date Monico Reynoso MD [address] [place] [address] PCP - General FAMILY PRACTICE 08/26/21 10/03/22 documented as of this encounter
--- OUTSIDE RECORDS SUMMARY | 2024-08-18 10:10 | XMS_ITS | Encounter Summary ---
Author Organization [facility] Address [address] [facility] [place] [address] [place] [address] Care Team Providers Care Dyeing Machine Feeder Name Role Phone Unavailable Primary Care Provider Unavailabl e Encounter Details Date Type Department Care Team (Late st Contact Info) Description 11/18/[address] [facility] [address] [place] [address] Rohit Zambrano MD [address] [place] [address], [address] [place] [address] Social History Tobacco Use Types Packs/Day Years Used Date Smoking Tobacco: Never Assessed Comments Unknown Sex and Gender Information Value Date Recorded Sex Assigned at Not on file Legal Sex Female 11:19 PM STUNNER Gender Identity Not on file Sexual Orientation Not on file documented as of this encounter Plan of Treatment Not on file documented as of this encounter Visit Diagnoses Not on filedocumented in this encounter
--- OUTSIDE RECORDS SUMMARY | 2024-08-18 10:10 | XMS_ITS | Encounter Summary ---
Author Organization [facility] Address [address] [facility] [address] [place] [address] Care Team Providers Care Configuration Management Administrator Name Role Phone Unavailable Primary Care Provider Unavailabl e Encounter Details Date Type Department Care Team (Late st Contact Info) Description 08/24/[address] [facility] [address] [place] [address] Pat Patton, PAJacobyC [address] [place] [address] Social History Tobacco Use Types Packs/Day Years Used Date Smoking Tobacco: Never Assessed Comments Unknown Sex and Gender Information Value Date Recorded Sex Assigned at Not on file Legal Sex Female 11:19 PM GLUE BONE CRUSHER Gender Identity Not on file Sexual Orientation Not on file documented as of this encounter Plan of Treatment Not on file documented as of this encounter Visit Diagnoses Diagnosis Laboratory examination Laboratory examination, unspecified documented in this encounter
--- OUTSIDE RECORDS SUMMARY | 2024-08-18 10:10 | XMS_ITS | Encounter Summary ---
Author Organization [facility] Address [address] [facility] [place] [address] [place] [address] Care Team Providers Care Director Payer Name Role Phone Unavailable Primary Care Provider Unavailabl e Encounter Details Date Type Department Care Team (Late st Contact Info) Description 08/24/[address] [facility] [address] [place] [address] , Generic Conversion, Social History Tobacco Use Types Packs/Day Years Used Date Smoking Tobacco: Never Assessed Comments Unknown Sex and Gender Information Value Date Recorded Sex Assigned at Not on file Legal Sex Female 11:19 PM SHAFT TENDER Gender Identity Not on file Sexual Orientation Not on file documented as of this encounter Plan of Treatment Not on file documented as of this encounter Visit Diagnoses Not on filedocumented in this encounter
--- OUTSIDE RECORDS SUMMARY | 2024-08-18 10:10 | XMS_ITS | Encounter Summary ---
Author Organization [facility] Address [address] [facility] [place] [address] [place] [address] Care Team Providers Care Trench Digger Helper Name Role Phone Unavailable Primary Care Provider Unavailabl e Encounter Details Date Type Department Care Team (Late st Contact Info) Description 08/16/[address] [facility] [address] [place], [place] [address] Jeff Bhakta MD [address] [place], [place] [address] Social History Tobacco Use Types Packs/Day Years Used Date Smoking Tobacco: Never Assessed Comments Unknown Sex and Gender Information Value Date Recorded Sex Assigned at Not on file Legal Sex Female 11:19 PM SWINE NUTRITIONIST Gender Identity Not on file Sexual Orientation Not on file documented as of this encounter Plan of Treatment Not on file documented as of this encounter Visit Diagnoses Diagnosis Laboratory examination Laboratory examination, unspecified documented in this encounter
--- OUTSIDE RECORDS SUMMARY | 2024-08-18 10:10 | XMS_ITS | Encounter Summary ---
Author Organization [facility] Address [address] [facility] [place] [address] [place] [address] Care Team Providers Care Lpc Name Role Phone Unavailable Primary Care Provider Unavailabl e Encounter Details Date Type Department Care Team (Late st Contact Info) Description 12/14/[address] [facility] [address] [place] [address] Rohit Zambrano MD [address] [place] [address], [address] [address] Social History Tobacco Use Types Packs/Day Years Used Date Smoking Tobacco: Never Assessed Comments Unknown Sex and Gender Information Value Date Recorded Sex Assigned at Not on file Legal Sex Female 11:19 PM FOOD AND BEVERAGE OPERATIONS MANAGER Gender Identity Not on file Sexual Orientation Not on file documented as of this encounter Plan of Treatment Not on file documented as of this encounter Visit Diagnoses Not on filedocumented in this encounter
--- OUTSIDE RECORDS SUMMARY | 2024-08-18 10:10 | XMS_ITS | Encounter Summary ---
Author Organization [facility] Address [address] [facility] [place] [address] [place] [address] Care Team Providers Care Railway Engineer Name Role Phone Unavailable Primary Care Provider Unavailabl e Encounter Details Date Type Department Care Team (Late st Contact Info) Description 08/24/[address] [facility] [address] [place] [address] , Generic Conversion, Social History Tobacco Use Types Packs/Day Years Used Date Smoking Tobacco: Never Assessed Comments Unknown Sex and Gender Information Value Date Recorded Sex Assigned at Not on file Legal Sex Female 11:19 PM MEDICAL POLICY SPECIALIST Gender Identity Not on file Sexual Orientation Not on file documented as of this encounter Plan of Treatment Not on file documented as of this encounter Visit Diagnoses Not on filedocumented in this encounter
--- OUTSIDE RECORDS SUMMARY | 2024-08-18 10:10 | XMS_ITS | Encounter Summary ---
Author Organization [facility] Address [address] [place] [address] [place] [address] Care Team Providers Care Dedicated Intermodal Truck Driver Name Role Phone Unavailable Primary Care Provider Unavailabl e Encounter Details Date Type Department Care Team (Late st Contact Info) Description 10/10/[address] [facility] [address] [place] [address] , Generic Conversion, Social History Tobacco Use Types Packs/Day Years Used Date Smoking Tobacco: Never Assessed Comments Unknown Sex and Gender Information Value Date Recorded Sex Assigned at Not on file Legal Sex Female 11:19 PM COORDINATOR OF PLACEMENT Gender Identity Not on file Sexual Orientation Not on file documented as of this encounter Plan of Treatment Not on file documented as of this encounter Visit Diagnoses Not on filedocumented in this encounter
--- OUTSIDE RECORDS SUMMARY | 2024-08-18 10:10 | XMS_ITS | Encounter Summary ---
Author Organization [facility] Address [address] [facility] [place] [address] [place] [address] Care Team Providers Care Sap Architect Name Role Phone Unavailable Primary Care Provider Unavailabl e Encounter Details Date Type Department Care Team (Late st Contact Info) Description 01/26/[address] [facility] [address] [place] [address] , Generic Conversion, Social History Tobacco Use Types Packs/Day Years Used Date Smoking Tobacco: Never Assessed Comments Unknown Sex and Gender Information Value Date Recorded Sex Assigned at Not on file Legal Sex Female 11:19 PM STEEL PLATE PRINTER Gender Identity Not on file Sexual Orientation Not on file documented as of this encounter Plan of Treatment Not on file documented as of this encounter Visit Diagnoses Not on filedocumented in this encounter
--- OUTSIDE RECORDS SUMMARY | 2024-08-18 10:10 | XMS_ITS | Encounter Summary ---
Author Organization [facility] Address [address] [place] [address] [place] [address] Care Team Providers Care Seasoning Sprayer Name Role Phone Unavailable Primary Care Provider Unavailabl e Encounter Details Date Type Department Care Team (Late st Contact Info) Description [address] [facility] [address] [place] [address] Rohit Zambrano MD [address] [place] [address], [address] [place] [address] Social History Tobacco Use Types Packs/Day Years Used Date Smoking Tobacco: Never Assessed Comments Unknown Sex and Gender Information Value Date Recorded Sex Assigned at Not on file Legal Sex Female 11:19 PM TREASURY ACCOUNTANT Gender Identity Not on file Sexual Orientation Not on file documented as of this encounter Plan of Treatment Not on file documented as of this encounter Visit Diagnoses Not on filedocumented in this encounter
--- OUTSIDE RECORDS SUMMARY | 2024-08-18 10:10 | XMS_ITS | Encounter Summary ---
Author Organization [facility] Address [facility] [place] [address] [place] [address] Care Team Providers Care Sheep Farmer Name Role Phone Unavailable Primary Care Provider Unavailabl e Encounter Details Date Type Department Care Team (Late st Contact Info) Description 06/30/[address] [facility] [address] [place] [address] Social History Tobacco Use Types Packs/Day Years Used Date Smoking Tobacco: Never Assessed Comments Unknown Sex and Gender Information Value Date Recorded Sex Assigned at Not on file Legal Sex Female 11:19 PM STOCK SELECTOR Gender Identity Not on file Sexual Orientation Not on file documented as of this encounter Plan of Treatment Not on file documented as of this encounter Visit Diagnoses Not on filedocumented in this encounter
--- OUTSIDE RECORDS SUMMARY | 2024-08-18 10:10 | XMS_ITS | Encounter Summary ---
Author Organization [facility] Address [facility] 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
--- OUTSIDE RECORDS SUMMARY | 2024-08-18 10:10 | XMS_ITS | Encounter Summary ---
Author Organization [facility] Address [facility] [place] [address] [place] [address] Care Team Providers Care Header Dock Name Role Phone Unavailable Primary Care Provider Unavailabl e Encounter Details Date Type Department Care Team (Late Contact Info) Description 11/30/[address] [facility] [address] [place] [address] Social History Tobacco Use Types Packs/Day Years Used Date Smoking Tobacco: Never Assessed Comments Unknown Sex and Gender Information Value Date Recorded Sex Assigned at Not on file Legal Sex Female 11:19 PM FUNERAL DIRECTOR AND EMBALMER Gender Identity Not on file Sexual Orientation Not on file documented as of this encounter Plan of Treatment Not on file documented as of this encounter Visit Diagnoses Not on filedocumented in this encounter
--- OUTSIDE RECORDS SUMMARY | 2024-08-18 10:10 | XMS_ITS | Encounter Summary ---
Author Organization [facility] Address [address] [place] [address] [place] [address] Care Team Providers Care Non Destructive Tester Name Role Phone Unavailable Primary Care Provider Unavailabl e Encounter Details Date Type Department Care Team (Late st Contact Info) Description 08/31/[address] [facility] [address] [place] [address] Rohit Zambrano MD [address] [place] [address], [address] [address] Social History Tobacco Use Types Packs/Day Years Used Date Smoking Tobacco: Never Assessed Comments Unknown Sex and Gender Information Value Date Recorded Sex Assigned at Not on file Legal Sex Female 11:19 PM STEEL LAYER Gender Identity Not on file Sexual Orientation Not on file documented as of this encounter Plan of Treatment Not on file documented as of this encounter Visit Diagnoses Not on filedocumented in this encounter
--- OUTSIDE RECORDS SUMMARY | 2024-08-18 10:10 | XMS_ITS | Encounter Summary ---
Author Organization [facility] Address [address] [facility] [place] [address] [place] [address] Care Team Providers Care Radiology Services Manager Name Role Phone Unavailable Primary Care Provider Unavailabl e Encounter Details Date Type Department Care Team (Late st Contact Info) Description 10/25/[address] [facility] [address] [place] [address] Rohit Zambrano MD [address] [place] [address], [address] [place] [address] Social History Tobacco Use Types Packs/Day Years Used Date Smoking Tobacco: Never Assessed Comments Unknown Sex and Gender Information Value Date Recorded Sex Assigned at Not on file Legal Sex Female 11:19 PM CARE TRAINER Gender Identity Not on file Sexual Orientation Not on file documented as of this encounter Plan of Treatment Not on file documented as of this encounter Visit Diagnoses Not on filedocumented in this encounter
--- OUTSIDE RECORDS SUMMARY | 2024-08-18 10:10 | XMS_ITS | Encounter Summary ---
Author Organization [facility] Address [address] [facility] [place] [address] [place] [address] Care Team Providers Care Manager Of Clinical Name Role Phone Unavailable Primary Care Provider Unavailabl e Encounter Details Date Type Department Care Team (Late st Contact Info) Description 10/10/[address] [facility] [address] [place] [address] , Jacob Diego MD Social History Tobacco Use Types Packs/Day Years Used Date Smoking Tobacco: Never Assessed Comments Unknown Sex and Gender Information Value Date Recorded Sex Assigned at Not on file Legal Sex Female 11:19 PM MUSEUM LIBRARIAN Gender Identity Not on file Sexual Orientation Not on file documented as of this encounter Plan of Treatment Not on file documented as of this encounter Visit Diagnoses Not on filedocumented in this encounter
--- OUTSIDE RECORDS SUMMARY | 2024-08-18 10:10 | XMS_ITS | Encounter Summary ---
Author Organization [facility] Address [address] [facility] [place] [place] [address] [place] [address] Care Team Providers Care Cloud Engineer Name Role Phone Unavailable Primary Care Provider Unavailabl e Encounter Details Date Type Department Care Team (Late st Contact Info) Description 11/24/2011 Abstract [facility] [address] [place], [place] [address] Jeff Bhakta MD [address] [place] [address] Social History Tobacco Use Types Packs/Day Years Used Date Smoking Tobacco: Never Assessed Comments Unknown Sex and Gender Information Value Date Recorded Sex Assigned at Not on file Legal Sex Female 11:19 PM STRAND GALVANIZER Gender Identity Not on file Sexual Orientation Not on file documented as of this encounter Plan of Treatment Not on file documented as of this encounter Visit Diagnoses Diagnosis Other screening mammogram documented in this encounter
--- OUTSIDE RECORDS SUMMARY | 2024-08-18 10:10 | XMS_ITS | Encounter Summary ---
Author Organization [facility] Address [address] [facility]. [address] Care Team Providers Care Medical Billing Service Name Role Phone Unavailable Primary Care Provider Unavailabl e Encounter Details Date Type Department Care Team (Late st Contact Info) Description 04/07/[address] [facility] [address] [place] [address] , Generic Conversion, Social History Tobacco Use Types Packs/Day Years Used Date Smoking Tobacco: Never Assessed Comments Unknown Sex and Gender Information Value Date Recorded Sex Assigned at Not on file Legal Sex Female 11:19 PM SURGICAL SUPERVISOR Gender Identity Not on file Sexual Orientation Not on file documented as of this encounter Plan of Treatment Not on file documented as of this encounter Visit Diagnoses Not on filedocumented in this encounter
--- OUTSIDE RECORDS SUMMARY | 2024-08-18 10:10 | XMS_ITS | Encounter Summary ---
Author Organization [facility] Address [address] [facility] [place] [address] [place] [address] Care Team Providers Care Tree Surgeon Helper Name Role Phone Unavailable Primary Care Provider Unavailabl e Encounter Details Date Type Department Care Team (Late st Contact Info) Description 04/02/[address] [facility] [address] [place] [address] Rohit Zambrano MD [address] [place] [address], [address] [address] Social History Tobacco Use Types Packs/Day Years Used Date Smoking Tobacco: Never Assessed Comments Unknown Sex and Gender Information Value Date Recorded Sex Assigned at Not on file Legal Sex Female 11:19 PM US CUSTOMS AND BORDER OFFICER Gender Identity Not on file Sexual Orientation Not on file documented as of this encounter Plan of Treatment Not on file documented as of this encounter Visit Diagnoses Not on filedocumented in this encounter
--- OUTSIDE RECORDS SUMMARY | 2024-08-18 10:10 | XMS_ITS | Encounter Summary ---
Author Organization [facility] Address [address] [facility] [place] [address] [place] [address] Care Team Providers Care Nitric Acid Concentrator Operator Name Role Phone Unavailable Primary Care Provider Unavailabl e Encounter Details Date Type Department Care Team (Late st Contact Info) Description 12/03/[address] [facility] [address] [place] [address] Rohit Zambrano MD [address] [place] [address] Social History Tobacco Use Types Packs/Day Years Used Date Smoking Tobacco: Never Assessed Comments Unknown Sex and Gender Information Value Date Recorded Sex Assigned at Not on file Legal Sex Female 11:19 PM PRESCHOOL TEACHER'S ASSISTANT Gender Identity Not on file Sexual Orientation Not on file documented as of this encounter Plan of Treatment Not on file documented as of this encounter Visit Diagnoses Not on filedocumented in this encounter
--- OUTSIDE RECORDS SUMMARY | 2024-08-18 10:10 | XMS_ITS | Encounter Summary ---
Author Organization [facility] Address [address] [facility] [place] [address] [place] [address] Care Team Providers Care Director Digital Advertising Name Role Phone Unavailable Primary Care Provider Unavailabl e Encounter Details Date Type Department Care Team (Late st Contact Info) Description 09/04/[address] [facility] [address] [place], [place] [address] Jeff Bhakta MD [address] [place], [place] [address] Social History Tobacco Use Types Packs/Day Years Used Date Smoking Tobacco: Never Assessed Comments Unknown Sex and Gender Information Value Date Recorded Sex Assigned at Not on file Legal Sex Female 11:19 PM ADULT DAY CARE WORKER Gender Identity Not on file Sexual Orientation Not on file documented as of this encounter Plan of Treatment Not on file documented as of this encounter Visit Diagnoses Diagnosis Laboratory examination Laboratory examination, unspecified documented in this encounter
--- OUTSIDE RECORDS SUMMARY | 2024-08-18 10:10 | XMS_ITS | Encounter Summary ---
Author Organization [facility] Address [address] [facility] [place] [address] [place] [address] Care Team Providers Care Account Information Clerk Name Role Phone Unavailable Primary Care Provider Unavailabl e Encounter Details Date Type Department Care Team (Late st Contact Info) Description 08/24/[address] [facility] [address] [place] [address] , Generic Conversion, Social History Tobacco Use Types Packs/Day Years Used Date Smoking Tobacco: Never Assessed Comments Unknown Sex and Gender Information Value Date Recorded Sex Assigned at Not on file Legal Sex Female 11:19 PM GASOLINE POWER SHOVEL OPERATOR Gender Identity Not on file Sexual Orientation Not on file documented as of this encounter Plan of Treatment Not on file documented as of this encounter Visit Diagnoses Not on filedocumented in this encounter
--- OUTSIDE RECORDS SUMMARY | 2024-08-18 10:10 | XMS_ITS | Encounter Summary ---
Author Organization [facility] Address [address] [facility] [place] [address] [place] [address] Care Team Providers Care Wind Field Manager Name Role Phone Unavailable Primary Care Provider Unavailabl e Encounter Details Date Type Department Care Team (Late st Contact Info) Description 08/16/[address] [facility] [address] [place], [place] [address] Jeff Bhakta MD [address] [place], [place] [address] Social History Tobacco Use Types Packs/Day Years Used Date Smoking Tobacco: Never Assessed Comments Unknown Sex and Gender Information Value Date Recorded Sex Assigned at Not on file Legal Sex Female 11:19 PM TAILING HAND Gender Identity Not on file Sexual Orientation Not on file documented as of this encounter Plan of Treatment Not on file documented as of this encounter Visit Diagnoses Diagnosis Laboratory examination Laboratory examination, unspecified documented in this encounter
--- OUTSIDE RECORDS SUMMARY | 2024-08-18 10:10 | XMS_ITS | Encounter Summary ---
Author Organization [facility] Address [address] [facility] [place] [address] [place] [address] Care Team Providers Care Resource Efficiency Manager Name Role Phone Unavailable Primary Care Provider Unavailabl e Encounter Details Date Type Department Care Team (Late st Contact Info) Description 04/25/[address] [facility] [address] [place] [address] Rohit Zambrano MD [address] [place] [address] Social History Tobacco Use Types Packs/Day Years Used Date Smoking Tobacco: Never Assessed Comments Unknown Sex and Gender Information Value Date Recorded Sex Assigned at Not on file Legal Sex Female 11:19 PM RESIDENTIAL CAREGIVER Gender Identity Not on file Sexual Orientation Not on file documented as of this encounter Plan of Treatment Not on file documented as of this encounter Visit Diagnoses Not on filedocumented in this encounter
--- OUTSIDE RECORDS SUMMARY | 2024-08-18 10:10 | XMS_ITS | Encounter Summary ---
Author Organization [facility] Address [address] [place] [address]. [place] [address] [place] [address] Care Team Providers Care Wax Pattern Assembler Name Role Phone Unavailable Primary Care Provider Unavailabl e Encounter Details Date Type Department Care Team (Late st Contact Info) Description 06/11/2008 Abstract [facility] [address] [place] [address] Social History Tobacco Use Types Packs/Day Years Used Date Smoking Tobacco: Never Assessed Comments Unknown Sex and Gender Information Value Date Recorded Sex Assigned at Not on file Legal Sex Female 11:19 PM WIRE COATING OPERATOR METAL Gender Identity Not on file Sexual Orientation Not on file documented as of this encounter Plan of Treatment Not on file documented as of this encounter Visit Diagnoses Not on filedocumented in this encounter
--- OUTSIDE RECORDS SUMMARY | 2024-08-18 10:10 | XMS_ITS | Encounter Summary ---
Author Organization [facility] Address [facility] [place] [address] [place] [address] Care Team Providers Care Buggy Driver Name Role Phone Unavailable Primary Care Provider Unavailabl e Encounter Details Date Type Department Care Team (Late st Contact Info) Description 09/16/2012 Abstract [facility] [address] [place] [address] Jeff Bhakta MD [address] [place] [address] Social History Tobacco Use Types Packs/Day Years Used Date Smoking Tobacco: Never Assessed Comments Unknown Sex and Gender Information Value Date Recorded Sex Assigned at Not on file Legal Sex Female 11:19 PM SAMPLE DYE MIXER Gender Identity Not on file Sexual Orientation Not on file documented as of this encounter Plan of Treatment Not on file documented as of this encounter Visit Diagnoses Diagnosis Screening for malignant neoplasm of cervix Screening for malignant neoplasm of the cervix documented in this encounter
--- OUTSIDE RECORDS SUMMARY | 2024-08-18 10:10 | XMS_ITS | Encounter Summary ---
Author Organization [facility] Address [address] [facility] [place] [address] [place] [address] Care Team Providers Care Job Honer Name Role Phone Unavailable Primary Care Provider Unavailabl e Encounter Details Date Type Department Care Team (Late st Contact Info) Description 03/22/[address] [facility] [address] [place] [address] Rohit Zambrano MD [address] [place] [address], [address] [address] Social History Tobacco Use Types Packs/Day Years Used Date Smoking Tobacco: Never Assessed Comments Unknown Sex and Gender Information Value Date Recorded Sex Assigned at Not on file Legal Sex Female 11:19 PM TANNING DRUM OPERATOR Gender Identity Not on file Sexual Orientation Not on file documented as of this encounter Plan of Treatment Not on file documented as of this encounter Visit Diagnoses Not on filedocumented in this encounter
--- OUTSIDE RECORDS SUMMARY | 2024-08-18 10:10 | XMS_ITS | Encounter Summary ---
Author Organization [facility] Address [address] [facility] [place] [address] [place] [address] Care Team Providers Care Applied Psychology Teacher Name Role Phone Unavailable Primary Care Provider Unavailabl e Encounter Details Date Type Department Care Team (Late st Contact Info) Description 04/02/[address] [facility] [address] [place] [address] , Generic Conversion, Social History Tobacco Use Types Packs/Day Years Used Date Smoking Tobacco: Never Assessed Comments Unknown Sex and Gender Information Value Date Recorded Sex Assigned at Not on file Legal Sex Female 11:19 PM SAND CONTROL WORKER Gender Identity Not on file Sexual Orientation Not on file documented as of this encounter Plan of Treatment Not on file documented as of this encounter Visit Diagnoses Not on filedocumented in this encounter
--- OUTSIDE RECORDS SUMMARY | 2024-08-18 10:10 | XMS_ITS | Encounter Summary ---
Author Organization [facility] Address [address] [place] [address] [place] [address] Care Team Providers Care Processing Specialist Name Role Phone Unavailable Primary Care Provider Unavailabl e Encounter Details Date Type Department Care Team (Late st Contact Info) Description 06/30/[address] [facility] [address] [place] [address] , Generic Conversion, Social History Tobacco Use Types Packs/Day Years Used Date Smoking Tobacco: Never Assessed Comments Unknown Sex and Gender Information Value Date Recorded Sex Assigned at Not on file Legal Sex Female 11:19 PM CORRECTIONS LIEUTENANT Gender Identity Not on file Sexual Orientation Not on file documented as of this encounter Plan of Treatment Not on file documented as of this encounter Visit Diagnoses Not on filedocumented in this encounter
--- OUTSIDE RECORDS SUMMARY | 2024-08-18 10:10 | XMS_ITS | Encounter Summary ---
Author Organization [facility] Address [address] [facility] [place] [address] [place] [address] Care Team Providers Care Reptile Farmer Name Role Phone Unavailable Primary Care Provider Unavailabl e Encounter Details Date Type Department Care Team (Late st Contact Info) Description 09/13/[address] [facility] [address] [place] [address] Osvaldo Owen MD [address] [place], [place] [address] Social History Tobacco Use Types Packs/Day Years Used Date Smoking Tobacco: Never Assessed Comments Unknown Sex and Gender Information Value Date Recorded Sex Assigned at Not on file Legal Sex Female 11:19 PM AUDITOR MEDICAL CLAIMS Gender Identity Not on file Sexual Orientation Not on file documented as of this encounter Plan of Treatment Not on file documented as of this encounter Visit Diagnoses Not on filedocumented in this encounter
--- OUTSIDE RECORDS SUMMARY | 2024-08-18 10:11 | XMS_ITS | Encounter Summary ---
Author Organization [facility] Address [address] [facility] [address] [place] [address] Care Team Providers Care Fretted String Instrument Repairer Name Role Phone Unavailable Primary Care Provider Unavailabl e Encounter Details Date Type Department Care Team (Late st Contact Info) Description 04/07/[address] [facility] [address] [place] [address] , Jacob Diego MD Social History Tobacco Use Types Packs/Day Years Used Date Smoking Tobacco: Never Assessed Comments Unknown Sex and Gender Information Value Date Recorded Sex Assigned at Not on file Legal Sex Female 11:19 PM BIODIESEL OPERATIONS MANAGER Gender Identity Not on file Sexual Orientation Not on file documented as of this encounter Plan of Treatment Not on file documented as of this encounter Visit Diagnoses Not on filedocumented in this encounter
== END 2024-08-11 07:40 | disposition home or self-care (01) ==
DX: N91.2 Amenorrhea, unspecified (principal); F39 Unspecified mood [affective] disorder; R68.82 Decreased libido; R37 Sexual dysfunction, unspecified
CPT/HCPCS: 36415; 82670; 83001; 83002; 84144; 84402; 84403; 84439; 84443

== ENCOUNTER 2024-12-02 07:37 | Outpatient (CLI) | payer BC, SELFPAY ==
--- NOTE | ~2024-12-02 | MM_ITS ---
EXAMINATION: MM screening [facility] w fiorella HISTORY: Screening TECHNIQUE: Craniocaudal and mediolateral oblique 3-D tomosynthesis images were obtained and synthetic 2-D images were generated. CAD analysis was submitted and interpreted. COMPARISON: No prior mammogram is available for comparison at this institution. BREAST PARENCHYMAL COMPOSITION: Not dense: There are scattered areas of fibroglandular density. FINDINGS: There is no evidence of suspicious mass, calcification, or architectural distortion to sugg est malignancy in either breast. There has been no suspicious interval change. IMPRESSION: 1. No mammographic evidence of malignancy. 2. Recommend routine screening mammography in one year. BI-RADS Category 1: Negative Reviewed, dictated and finalized at location B.
--- OUTSIDE RECORDS SUMMARY | 2024-12-02 07:42 | XMS_ITS | Clinical Summary ---
Author Organization [facility] Address [address] [place] [address] Care Team Providers Care Content Writer Name Role Phone Crispin Shen MD Unavailable [phone] Kemi Schmitz Unavailable Ton Hernandez NP Primary Care Provider [phone] Mraia C Zacarias MD Unavailable [phone] Allergies No known active allergies Medications [...] gram packet Take 1 packet by mouth early learning teacher before breakfast Active acetaminophen 500 mg capsuleIndicati [...] 09/20/2023 Assessment & Plan (09/20/2023 1:59 PM INSPECTOR PRINTED CIRCUIT BOARDS): SEE ABDOMINAL WALL HERNIA for assessment and plan Acute post-operative pain 09/20/2023 Assessment & Plan (09/20/2023 1:58 PM INSPECTOR PRINTED CIRCUIT BOARDS): -Ordered for tylenol and flexeril scheduled, PRN oxycodone Discharge planning issues 09/20/2023 Assessment & Plan (09/20/2023 1:58 PM INSPECTOR PRINTED CIRCUIT BOARDS): 2/ OR with Bochicchio; admission overnight for pain control Abdominal wall hernia 08/07/2023 Assessment & Plan (09/21/2023 9:08 AM INSPECTOR PRINTED CIRCUIT BOARDS): -H/o rectovaginal fistula s/p colostomy and subsequent [...] (03/16/2022): Added automatically from request for surgery [id number] Colostomy in place 03/16/2022 Overview (03/16/2022): Added automatically from request for surgery [id number] Anal fistula 02/08/2021 Overview (02/08/2021): Added automatically from request for surgery [id number] Rectovaginal fistula 08/31/2020 Overview (08/31/2020): Added automatically from request for surgery [id number] Immunizations Immunization Administration Dates Next Due Pfizer SARS-CoV-2 Monovalent [...] r organizations such as restoration groups, unions, [employer] or athletic groups, or school groups? No [...] on file Legal Sex Female 9:36 AM INSPECTOR PRINTED CIRCUIT BOARDS Gender Identity Female 11/16/2020 2:58 PM CDT Sexual Orientation Straight 11/16/2020 2: 58 PM CDT Obstetrics History Last Filed Vital Signs Vital Sign Reading Time Taken Comments Blood Pressure 114/62 09/21/2023 4:26 AM INSPECTOR PRINTED CIRCUIT BOARDS Pulse 91 09/21/2023 4:26 AM INSPECTOR PRINTED CIRCUIT BOARDS Temperature 36.4 C (97.6 F) 09/21/2023 4:26 AM INSPECTOR PRINTED CIRCUIT BOARDS Respiratory Rate 14 09/21/2023 4:26 AM INSPECTOR PRINTED CIRCUIT BOARDS Oxygen Saturation 99% 09/21/2023 4:26 AM INSPECTOR PRINTED CIRCUIT BOARDS Inhaled Oxygen Concentration - - Weight 90 kg (198 lb 6.6 oz) 09/11/2023 4:56 PM INSPECTOR PRINTED CIRCUIT BOARDS Height 177.8 cm (5' 10 ) 09/11/2023 4:56 PM INSPECTOR PRINTED CIRCUIT BOARDS Body Mass Index 28.47 09/11/2023 4:56 PM INSPECTOR PRINTED CIRCUIT BOARDS Plan of Treatment Health Maintenance Due Date [...] this topic Medical Devices Implanted Type Area Fork Lift Mechanic Device Identifier Shelf Expiration Date Model / Serial / Lot [employer] [id number] Biodesign Surgisis 9.5x.6cm Set Fistula Plug Without Button [employer] - [id number] Implanted:Qty: 1 on 03/04/2021 by Crispin Shen MD at [facility]/A: Rectum [employer] 05/30/2022 [id number] / / [id number] [employer]/C R Bard Ventralex St Sepra Sorbaflex 2.5in [place] Open Bioresorbable [id number] - [id number] Implanted:Qty: 1 on 09/20/2023 by Bib Ward MD at [facility] Left: Abdomen [employer]/C R Bard [id number] 06/16/2024 [id number] / / [id number] Procedures Procedure Name Priority Date/Time Associated Diagnosis Comments COLONOSCOPY 05/14/2023 8:29 AM CDT from Last 3 Months or Most Recently Relevant to Health Maintenance Results * COLONOSCOPY (05/14/2023 8:29 AM CDT) Anatomical Region Laterality Modality Other Narrative Procedure Note Crispin Shen MD - 05/14/2023 8:29 AM CDT [facility] Patient Name: Belem Coto Procedure Date: 05/14/2023 8:29 AM Date of : 1970 Admit Type: Outpatient Age: 52 Gender: Female Attending MD: Crispin Shen M.D. Room: [facility] ENDOSCOPY ROOM 02 Note Status: Finalized [...] The scope was passed under direct vision.The [id number] Colonoscope was introducedthrough the anus and advanced [...] On: 05/14/2023 8:29 AM Recognized by the [employer] for promoting quality in endoscopy Crispin Shen MD ENDOSCOPY PROCEDURES Final Res ult from Last 3 Months or Most Recently Relevant to Health Maintenance Insurance [facility] [place] Advance Directives For more information, please contact: [phone] * Full Code (Latest Code Status on File) Date Activated Date Inactivated Comments 09/20/2023 3:58 PM 09/21/2023 1:09 PM * Full Code Date Activated Date Inactivated Comments 05/14/2023 7:08 AM 05/14/2023 2:49 PM * Full Code Date Activated Date Inactivated Comments 05/18/2022 10:50 AM 05/20/2022 6:45 PM * Full Code Date Activated Date Inactivated Comments 11/24/2020 2:59 PM 11/26/2020 8:36 PM Care Teams Content Writer Relationship Specialty Start Date End Date Ton Hernandez NP [address] [place] [phone] PCP - General Nurse Practitioner 03/08/23 Crispin Shen MD Surgeon Colon and Rectal Surgery 09/09/20 Kemi Schmitz [address] [place] [address] Surgeon Colon and Rectal Surgery 05/16/21 Maria C Zacarias MD [address] [place] [address] Investigator Gastroenterology 04/02/23
--- OUTSIDE RECORDS SUMMARY | 2024-12-02 07:42 | XMS_ITS | Referral Summary ---
Author Organization [facility] Address [address] [place] [address] Care Team Providers Care Folding Machine Operator Name Role Phone Crispin Shen MD Unavailable [phone] Kemi Schmitz Unavailable Ton Hernandez NP Primary Care Provider [phone] Maria C Zacarias MD Unavailable [phone] Allergies No known active allergies Medications [...] gram packet Take 1 packet by mouth lime sludge kiln operator before breakfast Active acetaminophen 500 mg capsuleIndicati [...] 09/20/2023 Assessment & Plan (09/20/2023 1:59 PM AIRCRAFT STRUCTURAL REPAIR MECHANIC): SEE ABDOMINAL WALL HERNIA for assessment and plan Acute post-operative pain 09/20/2023 Assessment & Plan (09/20/2023 1:58 PM AIRCRAFT STRUCTURAL REPAIR MECHANIC): -Ordered for tylenol and flexeril scheduled, PRN oxycodone Discharge planning issues 09/20/2023 Assessment & Plan (09/20/2023 1:58 PM AIRCRAFT STRUCTURAL REPAIR MECHANIC): 2/ OR with Bochicchio; admission overnight for pain control Abdominal wall hernia 08/07/2023 Assessment & Plan (09/21/2023 9:08 AM AIRCRAFT STRUCTURAL REPAIR MECHANIC): -H/o rectovaginal fistula s/p colostomy and subsequent [...] (03/16/2022): Added automatically from request for surgery [id number] Colostomy in place 03/16/2022 Overview (03/16/2022): Added automatically from request for surgery [id number] Anal fistula 02/08/2021 Overview (02/08/2021): Added automatically from request for surgery [id number] Rectovaginal fistula 08/31/2020 Overview (08/31/2020): Added automatically from request for surgery [id number] Immunizations Immunization Administration Dates Next Due Pfizer [...] week 11/24/2020 How often do you attend [facility] or [facility]? 1 to 4 times [...] on file Legal Sex Female 9:36 AM AIRCRAFT STRUCTURAL REPAIR MECHANIC Gender Identity Female 11/16/2020 2:58 PM CDT Sexual Orientation Straight 11/16/2020 2: 58 PM CDT Last Filed Vital Signs Vital Sign Reading Time Taken Comments Blood Pressure 114/62 09/21/2023 4:26 AM AIRCRAFT STRUCTURAL REPAIR MECHANIC Pulse 91 09/21/2023 4:26 AM AIRCRAFT STRUCTURAL REPAIR MECHANIC Temperature 36.4 C (97.6 F) 09/21/2023 4:26 AM AIRCRAFT STRUCTURAL REPAIR MECHANIC Respiratory Rate 14 09/21/2023 4:26 AM AIRCRAFT STRUCTURAL REPAIR MECHANIC Oxygen Saturation 99% 09/21/2023 4:26 AM AIRCRAFT STRUCTURAL REPAIR MECHANIC Inhaled Oxygen Concentration - - Weight 90 kg (198 lb 6.6 oz) 09/11/2023 4:56 PM AIRCRAFT STRUCTURAL REPAIR MECHANIC Height 177.8 cm (5' 10 ) 09/11/2023 4:56 PM AIRCRAFT STRUCTURAL REPAIR MECHANIC Body Mass Index 28.47 09/11/2023 4:56 PM AIRCRAFT STRUCTURAL REPAIR MECHANIC Plan of Treatment Not on file Medical Devices Implanted Type Area Toy Packer Device Identifier Shelf Expiration Date Model / Serial / Lot [employer] [id number] Biodesign Surgisis 9.5x.6cm Set Fistula Plug Without Button Skipwith - [id number] Implanted:Qty: 1 on 03/04/2021 by Crispin Shen MD at [facility] N/A: Rectum [employer] 05/30/2022 [id number] / / [id number] [employer] Inc/C R Bard Ventralex St Sepra Sorbaflex 2.5in Tobias Open Bioresorbable [id number] - [id number] Implanted:Qty: 1 on 09/20/2023 by Bib Ward MD at [facility] Left: Abdomen [employer]/C R Bard [id number] 06/16/2024 [id number] / / [id number] Procedures Procedure Name Priority Date/Time Associated Diagnosis Comments COLONOSCOPY 05/14/2023 8:29 AM CDT from Last 3 Months or Most Recently Relevant to Health Maintenance Results * COLONOSCOPY (05/14/2023 8:29 AM CDT) Anatomical Region Laterality Modality Other Narrative Procedure Note Crispin Shen MD - 05/14/2023 8:29 AM CDT [facility] Patient Name: Belem Coto Procedure Date: 05/14/2023 8:29 AM Date of : 1970 Admit Type: Outpatient Age: 52 Gender: Female Attending MD: Crispin Shen M.D. Room: [facility] ENDOSCOPY ROOM 02 Note Status: Finalized [...] The scope was passed under direct vision.The [id number] Colonoscope was introducedthrough the anus and advanced [...] On: 05/14/2023 8:29 AM Recognized by the [employer] for promoting quality in endoscopy us Crispin Shen MD ENDOSCOPY PROCEDURES Final Res ult from Last 3 Months or Most Recently Relevant to Health Maintenance Insurance [employer] [place] Directives For more information, please contact: [phone] * Full Code (Latest Code Status on File) Date Activated Date Inactivated Comments 09/20/2023 3:58 PM 09/21/2023 1:09 PM * Full Code Date Activated Date Inactivated Comments 05/14/2023 7:08 AM 05/14/2023 2:49 PM * Full Code Date Activated Date Inactivated Comments 05/18/2022 10:50 AM 05/20/2022 6:45 PM * Full Code Date Activated Date Inactivated Comments 11/24/2020 2:59 PM 11/26/2020 8:36 PM Care Teams Folding Machine Operator Relationship Specialty Start Date End Date Ton Hernandez NP [address] [place] [id number] PCP - General Nurse Practitioner 03/08/23 Crispin Shen MD Surgeon Colon and Rectal Surgery 09/09/20 Kemi Schmitz [address] [place] [address] Surgeon Colon and Rectal Surgery 05/16/21 Maria C Zacarias MD [address] [place] [address] Certified Industrial Hygienist Gastroenterology 04/02/23
--- OUTSIDE RECORDS SUMMARY | 2024-12-02 07:42 | XMS_ITS | Clinical Summary ---
Author Organization [facility] Address [address] [place] [address] Care Team Providers Care Nicu Rn Name Role Phone David Ton [facility] Primary Care Provider + Source Comments [facility],non-owned Affiliates and Associated Physician Practices is amultiple site organization consisting of ambulatory clinics and hospital sitesin [place], [place], [place] and [place]. This disclosure is being madepursuant to the Care Everywhere program and may not contain all information available regarding this patient. Last updated 18.[facility] Allergies No known active allergies Medications * Be aware that medications may not be up to date on this document. Alwaysverify current medications with the patient. Multiple Vitamin (MULTIVITAMIN ADULT PO) Take 1 [...] at bedtime Active fish oil/omega-3 fatty acids (Promega;Cardi- [place] 3) 1000 MG capsule Take 1 (one) capsule by mouth at bedtime Active tirzepatide (Mounjaro) 7.5 MG/0.5ML injection Inject 7.5 (seven and one-half) mg subcutaneously every 7 days Active Zinc 50 MG tablet Take 1 (one) tablet by mouth once daily Active valACYclovir (Valtrex) 500 MG tablet Take 1 (one) tablet by mouth 3 times daily as needed 30 tablet 1 08/19/20 24 Active LORazepam (Ativan) 0.5 MG tabletIndicatio ns:Anxiety,Slee p disturbance Take 1 (one) tablet by mouth 2 times daily as needed for Anxiety 20 tablet 04/15/20 24 Active predniSONE (Deltasone) 10 MG tablet Take 3 tabs daily x 3 days, then 2 tabs daily x 3 days, then 1 tabs daily x 3 days,then 1/2 tab daily x 3 days, then stop 32 tablet 04/30/20 24 Active Active Problems Problem Noted Date Diagnosed Date Atypical pigmented skin lesion 02/01/2023 Overview (02/01/2023): Left medial thigh Pelvic region somatic dysfunction 12/03/2022 02/21/2023 Anxiety 11/20/2022 Rectovaginal fistula 05/13/[address] 05/13/2022 Vaginal fistula 03/16/2022 Overview (06/07/2022): Added automatically from request for surgery [id number] Colostomy in place 03/16/2022 Overview (06/07/2022): Added automatically from request for surgery [id number] Anal fistula 02/08/2021 Overview (06/07/2022): Added automatically from request for surgery [id number] Rectovaginal fistula 08/31/2020 Overview (06/07/2022): Added automatically from request for surgery [id number] Immunizations Immunization Administration Dates Next Due COVID PFIZER 12+YR [...] Recorded Patient Health Questionnaire-2 Score 0 04/07/2024 Comments No Sex and Gender Information Value Date Recorded Sex Assigned at Not on file Legal Sex Female 4:44 PM CDT Gender Identity Not on file Sexual Orientation Not on file Last Filed Vital Signs Vital Sign Reading Time Taken Comments Blood Pressure 110/84 04/07/2024 2:58 PM CDT Pulse 74 04/07/2024 2:58 PM CDT Temperature 36.3 C (97.4 F) 04/07/2024 2:58 PM CDT Respiratory Rate 16 04/07/2024 2:58 PM CDT Oxygen Saturation 98% 04/07/2024 2:58 PM CDT Inhaled Oxygen Concentration - - Weight 77.6 kg (171 lb) 04/07/2024 2:58 PM CDT Height 177.8 cm (5' 10 ) 04/07/2024 2:58 PM CDT Body Mass Index 24.54 04/07/2024 2:58 PM CDT Plan of Treatment Health Maintenance Due Date Last Done Comments COLOGGENNARD (AGES 45-75) - COLON CA SCREENING 1970 CT COLONOGRAPHY - COLON CA SCREENING 1970 FIT - COLON CA SCREENING 1970 FLEX SIG - COLON CA SCREENING 1970 PNEUMOCOCCAL VACCINE 50+ (1 of 1 - PCV) 2020 ZOSTER VACCINE (1 of 2) 2020 PAP SMEAR 02/18/2024 02/17/2021 (Done Outside Per Patient) COVID-19 VACCINE (6 - season) 2024 05/14/2023, 12/01/2021, 06/02/2021, Additional history exists DEPRESSION SCREENING 08/20/2024 11/20/2023, 10/02/2022, 05/12/2022 INFLUENZA VACCINE (Season Ended) 2025 05/14/2023, 05/16/2021, 05/20/2020, Additional history exists MAMMOGRAM 05/22/2025 05/22/2023, 04/21, 04/25/2019, Additional history exists LIPID TESTING 04/24/2029 04/24/2024, 01/19, 05/12/2022 DTAP/TDAP/TD VACCINES (2 - Td or Tdap) 07/22/2029 07/22/2019 COLON MONITORING 05/14/2033 05/14/2023 COLONOSCOPY - COLON CA SCREENING 05/14/2033 05/14/2023, 05/14/2023 Colorectal Cancer Screening 05/14/2033 HEPATITIS C SCREENING Completed 05/12/2022 HIV SCREENING Completed 05/12/2022 HEPATITIS B VACCINE Discontinued HIB VACCINE Aged Out No longer eligi ble based on patient's age to complete this topic HPV VACCINE Aged Out No longer eligi ble based on patient's age to complete this topic MENINGOCOCCAL (Group B) VACCINE SHARED DECISION-MAKING Aged Out No longer eligible based on patient's age to complete this topic MENINGOCOCCAL GROUPS A/C/Y/W VACCINE Aged Out No longer eligible based on patient's age to complete this topic Procedures Procedure Name Priority Date/Time Associated Diagnosis Comments LIPID PROFILE Routine 04/24/2024 9:17 AM CDT [...] Recently Relevant to Health Maintenance Results * (ABNORMAL) LIPID PROFILE (04/24/2024 9:17 AM CDT) Cholesterol 136 110 - 200 mg/dL 04/24/2024 10:14 AM CDT [facility] ([facility]) Triglycerides 82 40 - 150 mg/dL 04/24/2024 10:14 AM CDT [facility] ([facility]) HDL 63(H) 40 - 60 mg/dL 04/24/2024 10:14 AM CDT [facility] ([facility]) LDL Direct 51 0 - 99 mg/dL 04/24/2024 10:14 AM CDT [facility] ([facility]) VLDL 16 0 - 40 mg/dL 04/24/2024 10:14 AM CDT [facility] ([facility]) CHOL/HDL RATIO 2.16 0.00 - 4.98 04/24/2024 10:14 AM CDT [facility] ([facility]) Blood BLOOD SPECIMEN / Unknown Lab Venipuncture / Unknown 04/24/2024 9:17 AM CDT 04/24/2024 9:17 AM CDT Ton Locke SULFUR CHLORIDE OPERATOR-[facility] - CHEMISTRY ORDERABL ES Final Result [facility] ([facility]) [address] [place] [address] * MAMMO BILAT SCREENING (05/22/2023 8:26 AM [...] next screening exam. Electronically signed by: Len proyr/lissette:05/22/2023 19:48:14 Blocker Metal Base(s): Zuly Amado RT(R)(M)(CT), [facility] letter sent: Normal Exam Reading location: [facility] BI-RADS: 1 Negative Narrative 05/22/2023 7:48 PM CDT FROM: [place] [address] PROCEDURE FOR: Belem Coto [address] [place] [address] Home: PID#: [id number] Soc Sec#: [id number] Exam#: [id number] : 1970 Age: 52 TO: TON LOCKE #[id number] - MAMMO BILAT SCREENING BILATERAL DIGITAL SCREENING MAMMOGRAM WITH MEDIOLATERAL OBLIQUE CRANIOCAUDAL: 05/22/2023 The study was acquired using digital technology and interpreted from soft copy . CLINICAL: Routine screening. Patient has no complaints. No personal history of cancer. No family history of breast cancer. COMPARISONS: Comparison is made to exams dated: 05/16/2022 [facility], 09/05/2021, and 05/31/2020 [facility]. BREAST TISSUE:There are scattered fibroglandular densities in both breasts. FINDINGS: No significant masses, calcifications, or other findings are seen in either breast. There has been no significant interval change. Procedure Note Len Rodriguez MD - 05/23/2023 FROM: [address] [address] PROCEDURE FOR: Belem Coto [address] [place] [address] Home: PID#: [id number] Soc Sec#: [id number] Exam#: [id number] : 1970 Age: 52 TO: TON LOCKE #[id number] - MAMMO BILAT SCREENING BILATERAL DIGITAL SCREENING MAMMOGRAM WITH MEDIOLATERAL OBLIQUE CRANIOCAUDAL: 05/22/2023 The study was acquired using digital technology and interpreted from soft copy . CLINICAL: Routine screening. Patient has no complaints. No personal history of cancer. No family history of breast cancer. COMPARISONS: Comparison is made to exams dated: 05/16/2022 [facility], 09/05/2021, and [facility]31/2020 [facility] [...] exam. Electronically signed by: Len pryor/lissette:05/22/2023 19:48:14 Blocker Metal Base(s): RT Lilia(R)(M)(CT), [facility] letter sent: Normal Exam Reading location: [facility] BI-RADS: 1 Negative us Ton Locke SULFUR CHLORIDE OPERATOR-WATERMASTER MAMMO ORDERABLES Final R esult * HM COLONOSCOPY (05/14/2023) Impressions Sheila Garrido RN - 05/14/2023 Negative; repeat in 10 [address] [facility] - [address] Shen - see media us Historical Provider HEALTH MAINTENANCE Final Result * HIV-1 HIV-2 ANTIBODY + HIV P24 AG PANEL (05/12/2022 10:25 AM CDT) HIV-1/HIV-2 Rapid Antibody Negative Negative, Indeterminate 05/12/2022 11:10 AM CDT [facility] ([facility]) Rapid HIV Type 1 p24 Antigen Negative Negative, Indeterminate 05/12/2022 11:10 AM CDT [facility] ([facility]) Blood BLOOD SPECIMEN / Unknown Lab Venipuncture / Unknown 05/12/2022 10:25 AM CDT 05/12/2022 10:25 AM CDT Ton Locke [facility] - CHEMISTRY ORDERABL ES Final Result Performing Organization Address [facility]/ZIP Co de Phone Number [facility] ([facility]) [address] [place] [address] * HEPATITIS C ANTIBODY (05/12/2022 10:25 AM CDT) [facility] Hepatitis C Antibody <0.1 0.0 - 0.9 s/co ratio 05/13/2022 11:07 AM CDT [facility] ([facility]) Comment: Negative: < 0.8 Indeterminate: 0.8 - 0.9 Positive: > 0.9 HCV antibody alone does not differentiate between previous resolved infection and active infection. The CDC and current clinical guidelines recommend that a positive HCV antibody result be followed up with an HCV RNA test to support the diagnosis of acute HCV infection. [facility] offers Hepatitis C Virus (HCV) RNA, Diagnosis, KODY (468706) and Hepatitis C Virus (HCV) Antibody with reflex to Quantitative Real-time PCR ([id number]). Blood BLOOD SPECIMEN / Unknown Lab Venipuncture / Unknown 05/12/2022 10:25 AM CDT 05/12/2022 10:25 AM CDT Narrative [facility] - 05/13/2022 11:07 AM CDT Performed at: [address] [place] [address] [id number] Watch Mechanic: Puneet Trujillo PhD, Phone: [phone] Ton Locke APRN-[facility] - CHEMISTRY ORDERABL ES Final Result Performing Organization Address City/[facility] Co de Phone Number [facility] [address] [place] [address] from Last 3 Months or Most Recently Relevant to Health Maintenance Insurance [facility] [id number] [id number] Care Teams Nicu Rn Relationship Specialty Start Date End Date Ton Locke APRN-VIJI [address] [place] [address] PCP - General Nurse Practitioner 05/12/22
--- OUTSIDE RECORDS SUMMARY | 2024-12-02 07:42 | XMS_ITS | Encounter Summary ---
Author Organization [facility] Address [facility] [place] [address] Care Team Providers Care Analytical Sciences Director Name Role Phone Sinan Hanson MD Primary Care Provider [phone] Monico Reynoso MD Primary Care Provider [phone] Ton Hernandez NP Primary Care Provider [phone] Monico Reynoso MD Unavailable [phone] Thais Amaro MD Primary Care Provider + Encounter Details Date Type Department Care Team (Late st Contact Info) Description 12/30/[address] [facility] [address] [place] [address] , Generic Conversion, Social History Tobacco Use Types Packs/Day Years Used Date Smoking Tobacco: Never Assessed Comments Unknown Sex and Gender Information Value Date Recorded Sex Assigned at Female 09/16/2024 7:58 AM HONEY GRADER AND BLENDER Legal Sex Female 11:19 PM HONEY GRADER AND BLENDER Gender Identity Female 09/16/2024 7:58 AM HONEY GRADER AND BLENDER Sexual Orientation Straight 09/16/2024 7: 58 AM HONEY GRADER AND BLENDER documented as of this encounter Plan of Treatment Upcoming Encounters Date Type Department Care Team (Late st Contact Info) Description 09/18/2025 7:50 AM HONEY GRADER AND BLENDER Office Visit [facility] Family Medicine - [place] [address] [place] [address] Thais Amaro MD [address] [place] [address] documented as of this encounter Visit Diagnoses Not on filedocumented in this encounter Additional Health Concerns Infection Onset Date Last Indicated Resolved Time COVID-19 Rule Out 08/26/2021 08/26/2021 08/27/2021 2:51 PM HONEY GRADER AND BLENDER documented as of this encounter Care Teams Analytical Sciences Director Relationship Specialty Start Date End Date Sinan Hanson MD PCP - General FAMILY PRACTICE 04/18/19 08/25/21 Monico Reynoso MD [address] [place] [address] PCP - General FAMILY PRACTICE 08/26/21 10/03/22 Ton Hernandez NP [address] [place] [address] PCP - General FAMILY PRACTICE 10/04/22 09/15/24 Thais Amaro MD [address] [place] [address] PCP - General FAMILY PRACTICE 09/16/24 Monico Reynoso MD [address] [place] [address] FAMILY PRACTICE 10/04/22 documented as of this encounter
--- OUTSIDE RECORDS SUMMARY | 2024-12-02 07:42 | XMS_ITS | Clinical Summary ---
Author Organization [facility] Address [address] [place] [address] Care Team Providers Care Brand Specialist Name Role Phone Monico Reynoso MD Unavailable [phone] Thais Amaro MD Primary Care Provider + Allergies No known active allergies Medications TIRZEPATIDE-WE IGHT MANAGEMENT SC Inject 0.5 mLs into the skin. compound Active Multiple Vitamins-[place] als (MULTIVITAMIN ADULTS OR) Take 1 capsule by mouth daily. Active Lysine HCl 1000 MG Tab Take 1,000 mg by mouth daily. Active Turmeric, Curcuma Longa, Powder Take 500 mg by mouth daily. Active ALPRAZolam (XANAX) 0.5 MG tablet Take 1 tablet (0.5 mg total) by mouth nightly as needed. 4 Active probiotic (FLORAJEN3) Cap capsule Take 1 capsule by mouth 3 (three) times daily with meals. Active Digestive Enzymes (DIGESTIVE ENZYME OR) Active traZODone (DESYREL) 50 MG tabletIndicati ons:Anxiety Take 1 tablet (50 mg total) by mouth nightly at bedtime. 30 tablet 5 Active traZODone (DESYREL) 50 MG tabletIndicati ons:Anxiety Take 1 tablet (50 mg total) by mouth nightly at bedtime. 30 tablet 5 025 Discontinued Active Problems Problem Noted Date Diagnosed Date Oral herpes simplex infection 09/16/2024 Overview (09/16/2024): Occasional outbreaks. Would like to continue valacyclovir which she takes as needed for outbreaks. Anxiety 11/20/2022 Overview (09/16/2024): Uses alprazolam about once a week mostly at night as it relates to sleep. Assessment & Plan (09/16/2024 9:47 AM FIXTURE FABRICATOR REPAIRER): She is open to a trial of trazodone 50 mg at bedtime as needed as an alternative to alprazolam. Not concerned about her current use approximately once weekly but this might negate the need for urine drug screen and contract in the future. 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 Now finally repaired. 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 Completed pelvic floor therapy. Concerned when she has loose stools. Impacts sexual activity. Encounters Date Type Department Care Team Description 10/17/[address] [address] Thais Amaro MD Refill Request 10/15/[address] [place] [address] Thais Amaro MD Mammography Order 09/16/2024 7:50 AM FIXTURE FABRICATOR REPAIRER Office Visit [address] [place] [address] Thais Amaro MD Annual (Patient presents to establish care with complete health physical) 09/16/2024 Scan [facility] INFO [facility] Scanned, [facility] 09/16/2024 Travel from Last 3 Months Immunizations Immunization Administration Dates Next Due Influenza (Generic) 05/29/2019 Influenza Adult (Generic) 05/14/2023,05/16/2021, 05/20/2020 Tdap (Generic) 07/22/2019 Family History Medical History Relation Comments No Known Problems Daughter 1 No Known Problems Daughter 2 No Known Problems Daughter 3 Depression Father Heart Attack Father Heart Disease Father of a massiv e heart attack at age 52 Mental Health Father Cancer Mother thryoid No Known Problems Sister 1 Breast Cancer Sister 2 Relation Status Comments Daughter 1 Alive Daughter 2 Alive Daughter 3 Alive Father Mother Sister 1 Alive Sister 2 Alive Social History Tobacco Use Types Packs/Day Years Used Date Smoking Tobacco: Some Days Cigarettes 0.3 0.5 Passive Smoke Exposure: Yes Smokeless Tobacco: Never Tobacco Cessation:Ready to Q uit: No; Counseling Given: No Comments:Started af rehab working on quitting but not drinking is #1 priority Alcohol Use Standard Drinks/Week Comments Not Currently 0 (1 standard drink = 0.6 oz pur e alcohol) PHQ-2 Answer Date Recorded Patient Health Questionnaire-2 Score 0 09/16/2024 Comments No Sex and Gender Information Value Date Recorded Sex Assigned at Female 09/16/2024 7:58 AM FIXTURE FABRICATOR REPAIRER Legal Sex Female 11:19 PM FIXTURE FABRICATOR REPAIRER Gender Identity Female 09/16/2024 7:58 AM FIXTURE FABRICATOR REPAIRER Sexual Orientation Straight 09/16/2024 7: 58 AM FIXTURE FABRICATOR REPAIRER Last Filed Vital Signs Vital Sign Reading Time Taken Comments Blood Pressure 92/70 09/16/2024 7:58 AM FIXTURE FABRICATOR REPAIRER Pulse 82 09/16/2024 7:58 AM FIXTURE FABRICATOR REPAIRER Temperature 36.3 C (97.4 F) 09/16/2024 7:58 AM FIXTURE FABRICATOR REPAIRER Respiratory Rate 16 09/16/2024 7:58 AM FIXTURE FABRICATOR REPAIRER Oxygen Saturation 100% 09/16/2024 7:58 AM FIXTURE FABRICATOR REPAIRER Inhaled Oxygen Concentration - - Weight 71.3 kg (157 lb 3.2 oz) 09/16/2024 7:58 A M FIXTURE FABRICATOR REPAIRER Height 180.3 cm (5' 11 ) 09/16/2024 7:58 AM FIXTURE FABRICATOR REPAIRER Body Mass Index 21.92 09/16/2024 7:58 AM FIXTURE FABRICATOR REPAIRER Plan of Treatment Upcoming Encounters Date Type Department Care Team (Late st Contact Info) Description 09/18/2025 7:50 AM FIXTURE FABRICATOR REPAIRER Office Visit [facility] Family [facility] - [place] [address] [facility] [address] [place] [phone] Thais Amaro MD [address] [place] [address] [phone] Health Maintenance Due Date Last Done Comments Cervical Cancer Screening Pap Smear (Age 30 to 64) Every 3 Years 1970 Pneumococcal Vaccine: Pediatrics (0 to 5 Years) and At-Risk Patients (6 to 49 Years) (1 of 2 - PCV) 1976 Hepatitis B Vaccines (1 of 3 - 19+ 3-dose series) 1989 Cervical Cancer Screening Pap with HPV Testing (Age 30 to 64) Every 5 Years 2000 Cervical Cancer Screening with HPV 2000 Zoster Vaccines (1 of 2) 2020 COVID-19 Vaccine ( season) 2024 05/14/2023, 12/01/2021, 06/02/2021, Additional history exists Mammogram Screening 05/22/2025 05/22/2023, 05/16/2022, 04/25/2019, Additional history exists Annual Physical 09/16/2025 09/16/2024 DTaP, Tdap and Td Vaccines (2 - Td or Tdap) 07/22/2029 07/22/2019 Colorectal Cancer Screening Colonoscopy (10 Years) 05/14/2033 05/14/2023, Hepatitis C Completed 05/12/2022 PHQ-2 (Physician [place]) Completed 09/16/2024 Meningococcal B Vaccine Aged Out No l onger eligible based on patient's age to complete this topic Meningococcal Vaccine Aged Out No johann mary eligible based on patient's age to complete this topic RSV Immunizations Under 20 Months Aged Out No longer eligible based on patient's age to complete this topic Procedures Procedure Name Priority Date/Time Associated Diagnosis Comments COLONOSCOPY GENERIC (SCAN ORDER) Routine 05/14/2023 MG DIAG ADD VIEW LT DIGI Routine 04/25/2019 2:28 PM CDT Abnormal mammogram from Last 3 Months or Most Recently Relevant to Health Maintenance Results * COLONOSCOPY (05/14/2023) [facility] Scanned SCANNING Final Resu lt [facility] ONBASE * MG DIAG ADD VIEW LT DIGI (04/25/2019 2:28 PM CDT) Anatomical Region Laterality Modality Breast Left Mammography 04/25/2019 4:54 PM CDT Impressions 04/25/2019 4:57 PM CDT IMPRESSION: Likely benign compressible focal tissue asymmetry. Recommendation: 1: Ultrasound around the nipple mostly the upper part between 8 and 4 left Assessment: ACR BI-RADS Category 0 - Need additional imaging evaluation. Examination: Ultrasound breast Limited left [id number] Clinical history: There is a subtle focal [...] breast ultrasound. Recommendation: 1: Routine screening mammogram Bilateral in 1 Year Assessment: ACR BI-RADS Category 2 - Benign. The results were explained to the patient at the time of ultrasound 04/25/2019 Interpreted By: Obinna Lopez MD, 04/25/2019 4:54 PM Narrative 04/25/2019 4:57 PM CDT Examination: MG DIAG ADD VIEW LT DIGI, US BREAST LT BIRAD LTD [id number] Clinical history: Screening mammogram showed a subtle tissue asymmetry in the subareolar region Comparison: Comparison made to mammogram 04/18/2019 Technique: Digital screening mammography of left breast was performed. Spot views performed with straight ML view Tissue density: The breast tissue is heterogeneously dense. Findings: The dense tissue may obscure some lesions mammographically. The previously seen subtle focal tissue asymmetry is compressible. There is heterogeneous tissue in the subareolar region. No nipple retraction or architectural distortion. Jeff Bhakta MD MAMMO Final Res ult from Last 3 Months or Most Recently Relevant to Health Maintenance Insurance [facility] Member Subscriber Plan / Payer (Ef fective 2022-Present) Name:Belem Coto Relation to Subscriber:Self Name:Belem Coto Payer ID:Not on file Type:Not on file Address: [address] [place] [phone] [facility] Advance Directives Documents on File Type Date Recorded Patient Tool Smith Expl anation Advance Directives and Living Will 01/06/2013 12:00 AM POWER OF AVIONICS SAFETY INSPECTOR FO R HEALTH CARE Advance Directives and Living Will 01/06/2013 12:00 AM POWER OF AVIONICS SAFETY INSPECTOR FO R HEALTH CARE Care Teams Brand Specialist Relationship Specialty Start Date End Date Thais Amaro MD [address] [address] PCP - General FAMILY PRACTICE 09/16/24 Monico Reynoso MD [address] [place] [address] FAMILY PRACTICE 10/04/22
--- OUTSIDE RECORDS SUMMARY | 2024-12-02 07:42 | XMS_ITS | Encounter Summary ---
Author Organization [facility] Address [address] [place] [address] Care Team Providers Care Slot Editor Name Role Phone Lisseth Hernandez Primary Care Provider + Reason for Visit * Reason Onset Date Comments Refill Request 05/31/2022 Encounter Details Date Type Department Care Team ([facility] st Contact Info) Description 05/31/2022 Telephone [facility] [address] [place] [address] Lisseth Hernandez APRN-CNP [address] [place] [address] Refill Request Social History Tobacco Use Types Packs/Day Years Used Date Smoking Tobacco: Never Smokeless Tobacco: Never PHQ-2 Answer Date Recorded PHQ2 TOTAL SCORE 0 05/12/2022 Comments Unknown Sex and Gender Information Value [...] lisseth to send a refill. Please sendto [facility]. documented in this encounter Plan of Treatment Not on file documented as of this encounter Visit Diagnoses Not on filedocumented in this encounter Care Teams Slot Editor Relationship Specialty Start Date End Date Lisseth Hernandez APRN-VIJI [address] [place] [address] PCP - General Nurse Practitioner 05/12/22 documented as of this encounter
== END 2024-12-02 07:38 | disposition home or self-care (01) ==
PROVIDERS: PCP Student in an Organized Health Care Education/Training Program; Visit Provider Student in an Organized Health Care Education/Training Program
DX: Z12.31 Encounter for screening mammogram for malignant neoplasm of breast (principal)
CPT/HCPCS: 77063; 77067